=== PATIENT | male | born 1940 | race Caucasian/White ===

== ENCOUNTER → 2018-04-08 18:23 | Outpatient (CLI) | payer MEDICARE, SELFPAY ==
--- OUTSIDE RECORDS SUMMARY | 2018-05-25 14:53 | XMS RPT_ITS | Continuity of Care Document ---
:1940 Author Organization [facility] Address [facility] [facility] [address] [place] [address] Phone Care Team Providers Name Role Phone Tiajose OSKAR Daiana Mcclain Unavailable Howard Rogers Unavailable Jonh Faria MD Unavailable Gregg Adams Unavailable Unavailable Dr. Av Cantu Unavailable Dr. Ruddy Regan Unavailable Mehreen Solitario Unavailable Pancho Gonzalez Unavailable Staci Wise LPN Unavailable Unavailable Unavailable Unavailable Problems Name Dates Details Asthma without status asthmaticus or acute exacerbation (J45.909, 493.90) Comments: stablefrom 2-18, not using any binhalors now.Has cough, no SOB or wheeze. Status: Active Atherosclerosis of coronary artery (I25.10, 414.00) Comments: see susanne lopez, 11/05/15, every 6 month,. stopped metoprolo because of dizziness and its improved stable on altace1-12 stent x 3CABG 2003No Cp or SOB Status: Active Back pain (M54.9, 724.5) Comments: history of disc problem, loss of height of L1, osteoarthritis, calcification of abd aortastill sleeping in recliner, follow up with Dr. Gonzalez ([facility]) Status: Active BMI 27.0-27.9,adult (Z68.27, V85.23) Status: Active Calcification of aorta (Renamed from Aortic calcification) (I70.0, 440.0) Comments: no aneurysm, lipids stableper lumbar xray Status: Active Chronic prostatitis (N41.1, 601.1) Comments: saw crowely and started flomax yesterday and everything good there Status: Active CKD stage G3a/A1, GFR 45 - 59 and albumin creatinine ratio <30 mg/g (N18.3, 585.3) Comments: GFR 49% does not drink enough Status: Active Controlled diabetes mellitus with ophthalmic complication, without long-term current use of insulin (E11.39, 250.50) Comments: on actos, good hga1c : 6.0 was 6.2 (08/28/15) HBA1c 5.9( 03/12), HbA1c 5.8 (10-10-) EKG:NSR, no acute ST T wave changes.BP :Blood sugars at home:Given blood sugar logVision problems.Opthalmol ogy exam:Lef t eye macular degeneration, eye appt 06/12, getting shot, On actos Refils on medicine done.DIABETIC FOOT CARE:Check feet daily for sores, cuts, callusses, infection.Check inside of the shoes daily for lo ose objects or rough edges.Do not go barefoot inside or outside.Foot exam today WNL, no corn,callusses, ulcers, fissures, tenia pedis or foot deformity.Monofilament exam WNL.Pulses WNLDIET AND EXERCISE: Follow up in 3 monthseye exam regularlyDoes not check blood sugar at home Status: Active Current nonsmoker (Renamed from Current non-smoker) (Z78.9, V49.89) Status: Active Debility (R53.81, 799.3) Comments: wants another cane with feet Status: Active Depressive disorder (F32.9, 311) Comments: lexapro make huge difference happy again. Status: Active Diabetic retinopathy, nonproliferative (E11.3299, 250.50) Status: Active Dizziness (R42, 780.4) Comments: think multi factorial. think from old lacunar, think vision think BP ? inner ear. willcut back on meds and let BP trend up some. had PT if continue bruce with vertigo willsend to ENT for ENGimproved with stopping metoprolol by Dr Ellis 11/05/15 Status: Active Gait disturbance (R26.9, 781.2) Comments: old lacunar infarct on CT with parkinson like changes in gait etc, seen Angie been to PT. he is now on oxybutynin and help ? worsen this tried sinemet not thin helps. 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 sx done and some chronic mild pain in left side but better since surgery us done and good. colonscopy 5-15 recheck 2 year Status: Active History of colon polyps (Z86.010, V12.72) Comments: 6-07 sessile polyp. recheck 4-14Colonoscopy 08/10 Dr Faria, repeat 10 years Status: Active History of tobacco abuse (Z87.891, V15.82) Status: Active Hypercholesterolemia (E78.00, 272.0) Comments: tried crestor and lipitor nauseated. pt aware.On Zetia Status: Active Hypertension (I10, 401.9) Comments: controlled on altace Status: Active Lacunar infarction (I63.81, 434.91) Comments: Dr escudero in 04/1710: ED with slured speech, right sided facial droopiness.Weakness in rt arm.PT: and speech therapy twice a weekMRI: acute focal deep white matter infarct measuring 0.6 cm in tyhe posterior centrum semiovael on the left Status: Active Low back pain (M54.5, 724.2) Status: Active Macular degeneration (H35.30, 362.50) Comments: worsening vision sees Dr. Torres Status: Active Memory loss (R41.3, 780.93) Comments: 4-[address] Solitario show depression. lexapro help attitude but not memory. notice difference with patch. more energy and more back to self. really help and make better. think vascul ar dementia. notice exelon help have to change patch over to oral.Had CT 2013 mild atrophy, microvascular old lacunar infarct,Has selective memory Status: Active Nonsmoker (Z78.9, V49.89) Status: Active Other intervertebral disc degeneration, lumbar region (M51.36, 722.52) Comments: use mobic does help. some pain in left lower back. Status: Active Restless leg (G25.81, 333.94) Comments: recommended sleep study, but pt refused Status: Active Skin cancer (C44.90, 173.90) Status: Active TIA (transient ischemic attack) (G45.9, 435.9) Comments: was to take incrase dose of ASA will check dose and suggested lipitor. will check Lipid level Status: Active Urinary urgency (R39.15, 788.63) Comments: Kathie 02/09: incresed oxybutinin from Qd to BID Status: Active Vitamin D deficiency (E55.9, 268.9) Comments: low Status: Active Medications Name Dates Details Altace 5 MG Oral Capsule 1 Capsule QD for 90 days Quantity: 90 {Capsule} Refills: 3 Ordered:23-May-2016 Daiana Andrew CNP, CNP, Mary E Start : 23-May-2016 Active Donepezil HCl 10 MG Oral Tablet 1 (one) Tablet qhs for 0 days Quantity: 90 {Tablet} Refills: 3 Ordered:07-Oct-2017 Daiana Andrew CNP, CNP, Mary E Start : 07-Oct-2017 Active Comments:dc exelon patch ECOTRIN LOW STRENGTH, 81MG (Oral Tablet Delayed Release) 1 QD for 0 days Refills: 0 Ordered:19-Oct-2008 Che Gong Escitalopram Oxalate 10 MG Oral Tablet 1 (one) Tablet qd for 0 days Quantity: 90 {Tablet} Refills: 3 Ordered:10-Sep-2017 Daiana Andrew CNP, CNP, Mary E Start : 10-Sep-2017 Active Gas Relief Extra Strength 125 MG Oral Tablet Chewable 1 (one) Tablet Tablet bid prn for 0 days Quantity: 30 {Tablet} Refills: 0 Ordered:22-Jul-2017 Staci Wise LPN Start : 24-Apr-2017 Active Omeprazole 40 MG Oral Capsule Delayed Release [address] QOD for 90 days Quantity: 180 {Capsule} Refills: 2 Ordered:07-Nov-2016 Tiaasimjose c SCHMITT, Daiana Connorsjose c SCHMITT, Daiana Mcclain Start : 07-Nov-2016 Active Oxybutynin Chloride ER 10 MG Oral Tablet Extended Release 24 Hour 1 (one) Tablet ER 24HR two times daily for 30 days Quantity: 30 {Tablet} Refills: 5 Ordered:12-Mar-2016 Ilir Jacob MD Start : 12-Mar-2016 Active Comments:gait disturbance Plavix 75 MG Oral Tablet 1 (one) Tablet daily for 30 days Quantity: 30 {Tablet} Refills: 0 Ordered:19-Feb-2018 Lorrie SCHMITT, Daiana Connorsjose c SCHMITT Daiana Mcclain Start : 19-Feb-2018 Active Zetia 10 MG Oral Tablet 1 QD for 0 days Refills: 0 Ordered:06-Dec-2015 Ilir Jacob MD Start : 06-Dec-2015 Active Actos 30 MG Oral Tablet 1 (one) Tablet QD for 30 days Quantity: 30 {Tablet} Refills: 0 Ordered:19-Jun-2017 Judithjose c SCHMITT, Daiana Doyle CONTENT DIRECTOR, Daiana Mcclain Start : 19-Jun-2017 End : 19-Jul-2017 Inactive ADVAIR DISKUS, 100-50MCG/DOSE (Inhalation Aerosol Powder Breath Activated) 1 Puff(s) bid for 0 days Quantity: 1 {Misc} Refills: 5 Ordered:09-Jun-2013 VICENTA Gong Start : 09-Apr-2011 End : 09-Jun-2013 Inactive ALIGN, 4MG (Oral Capsule) 1 Capsule daily for 0 days Quantity: 30 {Capsule} Refills: 0 Ordered:09-Jun-2013 VICENTA Gong Start : 09-Apr-2011 End : 09-Jun-2013 Inactive AMITIZA, 8MCG (Oral Capsule) 1 qd for 0 days Refills: 0 Ordered:29-Aug-2013 VICENTA Gong End : 29-Aug-2013 Inactive ATORVASTATIN CALCIUM, 10MG (Oral Tablet) 1 (one) Tablet daily for 0 days Quantity: 30 {Tablet} Refills: 6 Ordered:29-Aug-2013 VICENTA Gong Start : 09-Jun-2013 End : 29-Aug-2013 Inactive BIAXIN XL PAC, 500MG (Oral Tablet Extended Release 24 Hour) 2 (two) Tablet ER 24HR Daily for 10 days Quantity: 20 {Tablet_ER_24HR} Refills: 0 Ordered:29-Jul-2006 Zeny Sales LPN Start : 29-Jul-2006 End : 17-Aug-2006 Inactive BIAXIN XL PAC, 500MG (Oral Tablet Extended Release 24 Hour) 2 (two) Tablet ER 24HR daily for 14 days Quantity: 28 {Tablet_ER_24HR} Refills: 0 Ordered:09-Apr-2011 Juditha CONTENT DIRECTOR, Daiana Connorsjose c SCHMITT, Katalina Start : 09-Apr-2011 Inactive BIAXIN, 500MG (Oral Tablet) 1 Tablet bid for 14 days Quantity: 28 {Tablet} Refills: 0 Ordered:09-Apr-2011 Juditha CONTENT DIRECTOR, Daiana Connorsjose c CONTENT DIRECTOR, Katalina Start : 09-Apr-2011 End : 23-Apr-2011 Inactive CHERATUSSIN AC, 100-10MG/5ML (Oral Syrup) 1 Teaspoon(s) qhs prn for 0 days Quantity: 6 {Ounce(s)} Refills: 0 Ordered:18-Oct-2012 Zeny Sales LPN Start : 09-Apr-2011 End : 18-Oct-2012 Inactive Comments:six ounces CIPRO, 500MG (Oral Tablet) 1 Tablet bid for 21 days Quantity: 42 {Tablet} Refills: 0 Ordered:04-Sep-2011 Toma Hale Start : 01-Sep-2011 End : 04-Sep-2011 Inactive CIPROFLOXACIN HCL, 500MG (Oral Tablet) 1 Tablet bid for 0 days Quantity: 28 {Tablet} Refills: 0 Ordered:31-Jul-2010 Zeny Sales LPN Start : 17-Jun-2010 End : 31-Jul-2010 Inactive CYCLOBENZAPRINE HCL, 10MG (Oral Tablet) 1 Tablet Tablet tid for 0 days Quantity: 30 {Tablet} Refills: 1 Ordered:09-Dec-2013 Eva King Start : 05-May-2013 End : 09-Dec-2013 Inactive Comments:thirty Ergocalciferol 33362 UNIT Oral Capsule 1 Capsule twice weekly for 90 days Quantity: 24 {Tablet} Refills: 0 Ordered:12-Mar-2016 Ilir Jacob MD Start : 12-Mar-2016 End : 10-Jun-2016 Inactive EXELON, 13.3MG/24HR (Transdermal Patch 24 Hour) 1 (one) Patch 24HR apply daily for 0 days Quantity: 1 {Package} Refills: 0 Ordered:17-Aug-2015 Lavinia Forrest LPN Start : 16-Aug-2015 End : 17-Aug-2015 Inactive EXELON, 13.3MG/24HR (Transdermal Patch 24 Hour) 1 (one) Patch 24HR apply daily for 0 days Quantity: 90 {Patch} Refills: 3 Ordered:17-Aug-2015 Lavinia Forrest LPN Start : 16-Aug-2015 End : 17-Aug-2015 Inactive EXELON, 4.6MG/24HR (Transdermal Patch 24 Hour) 1 (one) Patch 24HR apply daily 2 weeks for 0 days Quantity: 14 {Patch} Refills: 0 Ordered:10-Feb-2014 VICENTA Gong Start : 09-Dec-2013 End : 10-Feb-2014 Inactive FLOMAX, 0.4MG (Oral Capsule) 1 (one) Capsule at night for 0 days Quantity: 30 {Capsule} Refills: 0 Ordered:08-Dec-2014 VICENTA Gong Start : 25-Aug-2014 End : 08-Dec-2014 Inactive HYOSCYAMINE SULFATE, 0.125MG (Oral Tablet) 1 bid for 0 days Refills: 0 Ordered:24-May-2009 VICENTA GongInactive HYOSCYAMINE, 0.15MG (Oral Tablet) 1 (one) Tablet BID for 0 days Quantity: 60 {Tablet} Refills: 6 Ordered:08-Jan-2009 Tata Gould LPN Start : 08-Jan-2009 End : 12-Jan-2009 Inactive KEFLEX, 500MG (Oral Capsule) 1 Capsule bid for 0 days Quantity: 28 {Capsule} Refills: 0 Ordered:13-Jun-2010 VICENTA Gong Start : 11-Mar-2010 End : 13-Jun-2010 Inactive LEVBID, 0.375MG (Oral Tablet Extended Release 12 Hour) Tablet ER 12HR BID for 0 days Quantity: 90 {Tablet_ER_12HR} Refills: 3 Ordered:06-Jan-2008 Jasmin Liz Start : 23-Apr-2006 End : 06-Jan-2008 Inactive Levsin/SL 0.125 MG Sublingual Tablet Sublingual 1 (one) Tab Sublingual two times daily, as needed for 30 days Quantity: 60 {Tablet} Refills: 0 Ordered:10-Oct-2016 Lorrie CONTENT DIRECTOR, Daiana Doyle CONTENT DIRECTOR, Daiana Mcclain Start : 10-Oct-2016 End : 09-Nov-2016 Inactive Comments:Medication taken as needed. LIDODERM, 5% (External Patch) 2 (two) Patch on 12 hrs off 12 hrs on each side for 0 days Quantity: 14 {Patch} Refills: 1 Ordered:09-Jun-2013 VICENTA Gong Start : 05-May-2013 End : 09-Jun-2013 Inactive MELOXICAM, 15MG (Oral Tablet) 1 Tablet daily prn for pain for 0 days Quantity: 30 {Tablet} Refills: 0 Ordered:09-Jun-2013 VICENTA Gong Start : 18-Oct-2012 End : 09-Jun-2013 Inactive Comments:take with food MELOXICAM, 7.5MG (Oral Tablet) 1 Tablet daily for 0 days Quantity: 30 {Tablet} Refills: 0 Ordered:10-Feb-2014 VICENTA Gong Start : 17-Jan-2013 End : 10-Feb-2014 Inactive MIRAPEX, 0.125MG (Oral Tablet) 1 Tablet q pm for 0 days Quantity: 30 {Tablet} Refills: 0 Ordered:29-Aug-2013 VICENTA Gong Start : 04-Oct-2012 End : 29-Aug-2013 Inactive NULEV, 0.125MG (SL SL Tab) 1 tid/prn for 0 days Refills: 0 Ordered:06-Jan-2008 Jasmin Liz End : 06-Jan-2008 Inactive PLAVIX, 75MG (Oral Tablet) 1 qd (75 MG) Inactive PRAMIPEXOLE DIHYDROCHLORIDE, 0.125MG (Oral Tablet) 1 Tablet take 2-3 hrs before bedtime for 0 days Quantity: 30 {Tablet} Refills: 1 Ordered:09-Jun-2013 VICENTA Gong Start : 17-Jan-2013 End : 09-Jun-2013 Inactive PROVENTIL HFA, 108 (90 Base)MCG/ACT (Inhalation Aerosol Solution) 2 (two) Puff(s) QID/PRN for 0 days Quantity: 1 {Aerosol_Soln} Refills: 3 Ordered:09-Jun-2013 VICENTA Gong Start : 09-Apr-2011 End : 09-Jun-2013 Inactive Comments:PIERRE RHINOCORT AQUA, 32MCG/ACT (Nasal Suspension) Unsure Unsure for 0 days Refills: 0 Ordered:06-Jan-2008 Estrada Lizie End : 06-Jan-2008 Inactive SKELAXIN, 800MG (Oral Tablet) 1 Tablet BID/PRN for 0 days Quantity: 40 {Tablet} Refills: 0 Ordered:02-Dec-2007 VICENTA Gong Start : 02-Dec-2007 End : 22-May-2008 Inactive TIZANIDINE HCL, 4MG (Oral Capsule) 1 Capsule q6-8hr prn for back spasm for 0 days Quantity: 30 {Capsule} Refills: 0 Ordered:09-Jun-2013 VICENTA Gong Start : 18-Oct-2012 End : 09-Jun-2013 Inactive VESIcare 10 MG Oral Tablet 1 (one) Tablet daily for 30 days Quantity: 30 {Tablet} Refills: 0 Ordered:07-Feb-2016 Ilir Jacob MD Start : 06-Dec-2015 End : 05-Jan-2016 Inactive VICODIN, 5-500MG (Oral Tablet) 1 (one) Tablet QID/PRN for 0 days Quantity: 30 {Tablet} Refills: 0 Ordered:02-Dec-2007 VICENTA Gong Start : 02-Dec-2007 End : 06-Jul-2008 Inactive ZANAFLEX, 4MG (Oral Capsule) 1 Capsule daily if no improvement may take another in 6hrs for 0 days Quantity: 30 {Capsule} Refills: 0 Ordered:09-Jun-2013 VICENTA Gong Start : 04-Oct-2012 End : 09-Jun-2013 Inactive Comments:take with food ZOSTAVAX, 08949PDC/0.65ML (Subcutaneous Solution Reconstituted) 1 (one) For Solution once SC for 0 days Quantity: 1 {Cartridge} Refills: 0 Ordered:29-Aug-2013 VICENTA Gong Start : 09-Jun-2013 End : 29-Aug-2013 Inactive ACTOPLUS MET, 15-500MG (Oral Tablet) Tablet BID for 0 days Quantity: 60 {Tablet} Refills: 5 Ordered:21-May-2006 Zeny Sales LPN Start : 21-May-2006 End : 17-Aug-2006 Discontinued ALBUTEROL SULFATE HFA, 108MCG/ACT (Inhalation Aerosol Soln) QID/PRN for 0 days Refills: 0 Ordered:24-May-2009 VICENTA Gong Start : 29-Jul-2006 End : 24-May-2009 Discontinued Comments:This order discontinued per [facility]. AMITRIPTYLINE HCL, 25MG (Oral Tablet) Tablet 1/2 at night for 3d then 1 for 0 days Refills: 0 Ordered:22-May-2008 Kasey Aguiar MD Start : 06-Apr-2008 End : 22-May-2008 Discontinued CARBIDOPA-LEVODOPA ER, 25-100MG (Oral Tablet Extended Release) 1 (one) Tablet ER bid for 0 days Quantity: 60 {Tablet} Refills: 0 Ordered:18-May-2015 Kasey Aguiar MD Start : 18-May-2015 End : 18-May-2015 Discontinued Cerefolin NAC 6-90.314-2-600 MG Oral Tablet 1 (one) Tablet daily for 0 days Quantity: 30 {Tablet} Refills: 11 Ordered:21-Jan-2017 Rj Wise LPNa Start : 07-Nov-2016 End : 21-Jan-2017 Discontinued Cerefolin NAC 6-90.314-2-600 MG Oral Tablet 1 (one) Tablet daily for 0 days Quantity: 90 {Tablet} Refills: 3 Ordered:21-Jan-2017 Cheyannerb MACKENZIE, Staci Start : 07-Nov-2016 End : 21-Jan-2017 Discontinued FLEXERIL, 5MG (Oral Tablet) 1 Tablet tid prn for muscle spasm for 0 days Quantity: 30 {Tablet} Refills: 1 Ordered:04-Oct-2012 VICENTA Gong Start : 04-Oct-2012 End : 05-May-2013 Discontinued Comments:This order discontinued per [facility]. METFORMIN HCL, 500MG (Oral Tablet) Tablet BID for 0 days Quantity: 60 {Tablet} Refills: 5 Ordered:21-May-2006 eZny Sales LPN Start : 21-May-2006 End : 21-May-2006 Discontinued Comments:disregard this script Myrbetriq 50 MG Oral Tablet Extended Release 24 Hour 1 (one) Tablet ER 24HR in am for 0 days Quantity: 30 {Tablet} Refills: 0 Ordered:06-Dec-2015 Slarb [employer], Staci Start : 28-Aug-2015 End : 06-Dec-2015 Discontinued PYRIDIUM, 100MG (Oral Tablet) Tablet BID for 0 days Quantity: 20 {Tablet} Refills: 0 Ordered:16-Nov-2006 VICENTA Gong Start : 16-Nov-2006 End : 28-Jun-2007 Discontinued TESSALON PERLES, 100MG (Oral Capsule) 1 (one) Capsule TID/PRN for 0 days Quantity: 30 {Capsule} Refills: 0 Ordered:29-Jul-2006 VICENTA Gong Start : 29-Jul-2006 End : 28-Jun-2007 Discontinued Toprol XL 25 MG Oral Tablet Extended Release 24 Hour 1/2 (one half) Tablet ER 24HR QD for 90 days Quantity: 30 {Tablet} Refills: 0 Ordered:10-Oct-2016 Slarb [employer], Staci Start : 14-Apr-2014 End : 10-Oct-2016 Discontinued Allergies and Adverse Reactions Name Dates Details Iodinated Contrast (Allergy) Status: Active Penicillins (Allergy) Status: Active Past Medical History Name Dates Details Abdominal pain (R10.9, 789.00) Comments: left upper quad Status: Inactive as of 12-May-2014 Actinic keratosis (L57.0, 702.0) 24-May-2009 Status: Inactive as of 09-Jun-2013 Acute renal failure (N17.9, 584.9) 13-Jun-2010 Status: Inactive as of 09-Jun-2013 BMI 27.0-27.9,adult (Z68.27, V85.23) Status: Inactive as of 22-Jul-2017 BMI 28.0-28.9,adult (Z68.28, V85.24) Status: Inactive as of 24-Apr-2017 BMI 28.0-28.9,adult (Z68.28, V85.24) Status: Inactive as of 21-Jan-2017 BMI 28.0-28.9,adult (Z68.28, V85.24) Status: Inactive as of 27-Oct-2017 Bronchitis (J40, 490) Status: Inactive as of 09-Jun-2013 Bronchitis (J40, 490) 13-Jun-2010 Status: Inactive as of 09-Jun-2013 Calcium kidney stone (N20.0, 592.0) 11-Mar-2010 Status: Inactive as of 09-Jun-2013 Change in mental status (R41.82, 780.97) Comments: on excelon patch per DB now worsening mental stauts Status: Inactive as of 26-Jan-2015 Confusion (R41.0, 298.9) Comments: this week not been good. try to make oatmeal but could not figure out how to do Status: Inactive as of 26-Jan-2015 Controlled diabetes 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 (E11.9, 250.00) Status: Inactive as of 26-Jan-2015 Cough (R05, 786.2) Status: Inactive as of 09-Jun-2013 Cyst, kidney, acquired (N28.1, 593.2) Status: Inactive as of 09-Jun-2013 Duodenitis 13-Jun-2010 Status: Inactive as of 09-Jun-2013 Dysuria (R30.0, 788.1) Status: Inactive as of 09-Jun-2013 Elevated prostate specific antigen (PSA) (R97.20, 790.93) Status: Inactive as of 09-Jun-2013 Encounter for routine history and physical exam for male (Z00.00, V70.0) Comments: 03-11 reveiwed with patient allquestions myself with patient. keep cellphone on him when gone. at all times. some depression questions positive but think because memory and note not depressed shingles at pharmacy Status: Inactive as of 18-May-2015 Epigastric pain (R10.13, 789.06) Status: Inactive as of 09-Jun-2013 Fall (W19.XXXA, E888.9) Comments: worsening with fall after restless legsfell out of bed secondary to restless legs Status: Inactive as of 09-Jun-2013 Foot pain (M79.673, 729.5) Status: Inactive as of 09-Jun-2013 Hematuria (R31.9, 599.70) Comments: now resolvedhad small blood in er Status: Inactive as of 12-Mar-2016 Hip pain, bilateral (719.45) Comments: Saw Dr Gonzalez sent for xray Status: Inactive as of 09-Jun-2013 Hyperglycemia (R73.9, 790.6) Status: Inactive as of 09-Jun-2013 Hypokalemia (E87.6, 276.8) 13-Jun-2010 Status: Inactive as of 09-Jun-2013 Irritable bowel syndrome (K58.9, 564.1) Status: Inactive as of 21-Jan-2017 Laceration of left hand (S61.412A, 882.0) Comments: pinky finger, sutured at urgent care Status: Inactive as of 21-Jan-2017 Low back pain (M54.5, 724.2) Status: Inactive as of 09-Jun-2013 LUQ abdominal tenderness (R10.812, 789.62) Comments: LUQ abdominla pain X2 years worse for 2 months.No Contipation or diarehea.Starts in the mdidle odf the night, moving around helps, no vomiting.No Pain after eatingHad colon suregry 2 yrs ago, colon obs truction Dr Faria.Has umbilical hernia.Last saw Dr Simpson Status: Inactive as of 21-Jan-2017 Pain of lower leg, unspecified laterality (M79.669, 729.5) Comments: thigh and kay bone ? arthritis. ?fromback. not with walking so not seem like joint. not sound radicular. check xray use tyelnol as need. if worsen then NCS. mobic helps. better if up and walk a lso. not watn to use mobic unless have too. Status: Inactive as of 10-Feb-2014 Parkinsonism (G20, 332.0) Comments: ? because of stroke lacunar. seen Dr. adams and agree. better with PT. Status: Inactive as of 10-Feb-2014 Pneumonia, organism unspecified (J18.9, 486) Status: Inactive as of 09-Jun-2013 Pre-operative examination (Z01.818, V72.84) Status: Inactive as of 09-Jun-2013 Skin lesion of face (L98.9, 709.9) Status: Inactive as of 21-Jan-2017 SOB (shortness of breath) on exertion (R06.02, 786.05) 13-Jun-2010 Comments: last few months with exertion. to cardio ? need cath not want to stress with cardio clear. some exertional signs and symptoms not progressing, stable so not need into hospital. check ash Status: Inactive as of 09-Jun-2013 thumb pain 13-Jun-2010 Status: Inactive as of 09-Jun-2013 Uncontrolled type II diabetes mellitus (E11.65, 250.02) 13-Jun-2010 Status: Inactive as of 09-Jun-2013 Unexplained weight loss (R63.4, 783.21) Status: Inactive as of 21-Jan-2017 Unspecified Diagnosis Status: Inactive as of 23-Aug-2015 Unspecified Diagnosis Status: Inactive as of 23-Aug-2015 Unspecified Diagnosis Status: Inactive as of 09-Jun-2013 Unspecified Diagnosis Status: Inactive as of 09-Jun-2013 Urinary frequency (R35.0, 788.41) 13-Jun-2010 Status: Inactive as of 09-Jun-2013 Urinary tract infection, site not specified (N39.0, 599.0) 11-Mar-2010 Status: Inactive as of 09-Jun-2013 Visit for suture removal (Z48.02, V58.32) Status: Inactive as of 21-Jan-2017 Wheezing (R06.2, 786.07) Status: Inactive as of 09-Jun-2013 WMV Comments: colonscopy 08-08 Status: Inactive as of 09-Jun-2013 Procedures Procedure Dates Details 3 stents placed Completed Comments: 2009 [place] Angioplasty Completed Comments: 1989,1995 bladder surgery Completed Apr-2006 CAB Completed 1999 Comments: triple bypass Colonoscopy Completed Comments: [facility] 08-13- rpt 10 years EKG Completed Comments: 2014 Hiatal Hernia Completed 1989 Inguinal Hernia Completed [address] faria (volvulus) Completed 09-07 Retinal Surgery Completed Comments: left eye to remove blood clot March 2013 TURP Completed Jun-2007 Comments: kathie Cystoscopy, TURP (10-17-14) Date Value Details 10-Oct-2016 L/S Spine Min 4 Views Result: Comments: See Note; NOTES: [facility] Services [address] [place] [address] Verdana 4d L/S Spine Min 4 Views MR#: [id number] Acct: [id number] Name: SHARITASERVANDO Rep #: [id number] : 1940 M 76 From: Toma Gary MD PCP: Daiana Andrew Status: REG CLI Study: L/S Spine Min 4 Views Date of Exam: 10/10/16 Exam# [id number] Ordering Dr: aDiana Andrew STUDY: X-RAY - LUMBAR SPINE REASON FOR EXAM: Male, 76 years old. Low back pain TECHNIQUE: Five view(s) of the lumbar spine were obtained. COMPARISON: October 08, 2012 FINDINGS: No rmal lumbar lordosis. There is trace dextroscoliosis. There is a normal alignment of the vertebrae. There is mild decreased height of L1 which is stable. There is marked disc space narrowing at L5-S1. There is atherosclerotic calcification of the abdominal aorta without a demonstrated aneurysm. There are small round calcifications projected over the right renal shadow. There are numerous phleboliths in the lower pelvis. RAD/L/S Spine Min 4 Views IMPRESSION: There are marked degenerative disc changes at L5-S1. There is stable mild compressio n of L1. There is trace dextroscoliosis. There are renal calculi on the right side. Electronically Signed: Toma Gary MD at 16:08 EDT Tel [phone], Service support , F [phone] CC: Daiana Andrew [employer] Operator Helper: Signed 22-Aug-2016 PT D/C Summary (1) Result: Comments: See Note; NOTES: [facility] Physical Therapy [facility] [address] [place] [address] Fax [facility] MR#: [id number] Acct: [id number] Name: SERVANDO TORRE Rep #: [id number] : 1940 76 From: Quang Spain DPT, OCS, CSCS Referring DrMohan: Lenore Elder LEAD APPLICATIONS DEVELOPER Status: REG RCR Insurance: MMO MEDICARE HP - PT D/C Summary It has been my pleasure to treat SERVANDO TORRE under orders from JOHN Bruce, for the diagnosis of CVA for a total of 7 visit(s). Discharge Date: 06/18/16 Pl ease see the following information for a summary of their discharge status. - Subjective Subjective: No balance difficiulties, no falls lately. Activites at home are normal in one breath and then avoi ding going outside in the next sentence. No pain. All transfers and basic ADLs are good. Dresses without Wants to drive but otherwise happy with current activitiest difficulty. Hasn't driven since 1996. I'm good enough to be done. No gumption to exercise at home, will stay active at [facility] and with buddies. Not sure when follows up with doctor. - Objective Objective/Function: +6 on FGA. Walking well today but poor motivation to stay active. - Goals Goal 1:: FGA to diminish fall risk Goal 2:: I HEP/Silver Sneakers to improve overall health Goal 3:: Pt feel back to 100% as prior to recent str jim with mobility and balance. Goal Progress: Goal Met - Plan Plan: D/C - D/C Information Discharge Comments: D/c. Pto continue seated VOR at home and stay active. Hard for him to find the motivation to ex at home and cognitively unable to continue via Silver Sneakers. may want to eventually join with him to wrokout and may discuss this with doctor. Balance is scoring normal for his age and 6 p oints improved. If there are questions or concerns regarding this patient's physical therapy, please feel free to call me at [phone]. Thank you for the referral of this patient. Sincerely, Quang rose, DPT, OC <Electronically signed by Quang Spain DPT, OCS, CSCS> 08/22/16 0934 CC: Daiana Andrew; Lenore Elder NP EBG Signed 21-Aug-2016 D/C Summary- SP Result: Comments: See Note; NOTES: [facility] Speech Pathology [facility] [address] [place], [place] [address] Fax REHABILITATION SERVICES DISCHAR GE SUMMARY MR#: [id number] Acct: [id number] Name: SERVANDO TORRE Rep #: [id number] : 1940 76 From: Reggie Joyner M.A., [facility]-ASSOCIATE TEAM PHYSICIAN Referring : Lenore Elder LEAD APPLICATIONS DEVELOPER Status: REG RCR Insurance: M [place] MEDICARE ST Discharge Summary - Discharged: Discharge: Servando Torre is discharged from [facility] speech therapy as of August 21, 2016. He has met or declined to address further go als. Goals and progress are as follows: 1. Patient will use recall strategies including but not limited to calendar use and written notes. His keeps a calendar that the patient looks at daily. 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 All other strategies are visualand due to his macular degeneration, he is marah ble to use them. 2. Patient will complete planning, judgment and reasoning tasks. Initially the patient had incomplete answers and moderate cues to give answers. At time of discharge he is able to compl ete verbal reasoning with 80% accuracy. 3. Patient will complete memory tasks including but not limited to recall family members names, personal information, puzzle completion. Initially, Servando had diffi culty in recalling names, mainly his grand kids. He also was unable to give his personal details such as his address. At the time of discharge he was able to list all family members names, complete addr ess and birthday. 4. Patient will complete magaña handling tasks. This goal was addressed multiple times and patient made minimal progress. During therapy he declined to continue this goal as he stated he does not do the bills nor does he pay when he and his are out in public. Was given the Cognitive Linguistic Quick Test ( CLQT) 3 times which is a criterion referenced assessment designed for adult s between the ages of 18 and 89 with known or suspected neurological dysfunctions. The CLQT is to assess strength and weaknesses in five cognitive domains. Severity ratings are within normal limits, mil d, moderate, severe deficits. The subtests are as follows: Initial, Re-evaluation,Discharge respective. Attention: Severe Moderate Mild. Memory:Moderate Moderate Mild. Executive functions: Severe Severe Borderline Mild/Moderate. Language:Moderate Mild WNL. Visuospatial Skills: Severe Severe Mild. Composite Severity: Severe Moderate Mild. The patient declined to have a home program provided to him. He declined to continue therapy as he stated he is okay at home. A copy of this discharge summary will be sent to his referring physician. Other ASSOCIATE TEAM PHYSICIAN G code- Current status CL Goal status CK, D/C status CJ. <Electronically signed by Reggie Joyner M.A., CCC-ASSOCIATE TEAM PHYSICIAN> 08/21/16 1538 CC: Daiana Andrew; Lenore Elder NP JLB Signed 10-Jul-2016 Adult Re-Evaluation - SP Result: Comments: See Note; NOTES: [facility] Speech Pathology [facility] [address] [place], [place] [address] Fax REEVALUATION / MEDICARE RECERTI FICATION [facility] SPEECH THERAPY MR#: [id number] Acct: [id number] Name: SERVANDO TORRE Rep #: [id number] : 1940 76 From: Reggie Joyner M.A., CCC-ASSOCIATE TEAM PHYSICIAN Referring Dr.: Lenore Elder NP Insura nce: MMO MEDICARE Previous/Current Goals - Goals 1-5 Previous Goal #1: Patient will use recall strategies including but not limited to calendar use and written notes. Goal 1 Status: Patient used t he strategy of repeition. He is able to read single words but was not able to write a list to use that as a strategy. He does not use a calendar although his has one present at home per the patient . Previous Goal #2: Patient will complete short term recall tasks including but not limited to recall of items he wishes to order as well as recall of words to find in word searches. Goal 2 Status: The patient was able to recall 13/18 details on testing for immediate recall. During therapy he was able to recall his food order after 5 minutes. He was also able to recall 2/3 words after a delay. Testing did not show a increase in memory due to one subtest ( a visual subtest) decreasing but he increased his story retelling score and his personal facts score. He was able to recall when his next appointm ents were after each therapy session. He reports that he has deficits in recalling names and it was observed in therapy that he often forgot the amount of magaña he had when he moved to counting change. P revious Goal #3: Patient will complete magaña handling tasks. Goal 3 Status: Patient is able to count magaña intermittently but often is a dollar or two off. He stated that due to visual deficits he has a h vanesa time determining between bill amounts. This goal will continue. History - History Date of Eval: 05/22/16 Medical Diagnosis (from RX): Congitive Deficits. Date of Onset of Diagnosis: [facility] Yes Results: Hospital and Home health. Other Relevant Medical History/Diagnoses/Surgery: Prior CVA was approx. 3 years ago. 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 Objective Cog/Ling/Com - Te st Administered Ekfbxixix-Pfwfosztlm-Yzzfuhjxcbnyr Assessment Administered: Yes Euqaplkgf-Idzwcvhxti-Mjpcuesksgran Assessment: Cognitive Linguistic skills were evaluated using patient/family interview, skilled observation and informal evaluation through tasks completed by the patient. - Orientation Orientation: Person, Place, Birthdate, Medical Diagnosis - Conversational Tasks Comments: Patient answ ered questions appropriately during simple conversation. - Recall Percent recall of paragraph information (y/n questions): 100% for short paragraph. - Numerical Skills Counting Money: Patient continue s to struggle to count money. He is able to count magaña but then forgets the total as he attempts to count change. He reports that he has difficulty in telling apart the coins due to visual deficits. Det ermining Change: Patient has a high level of difficult with identifying if change is correct or counting change. Balancing Checkbook Bicknell: Patient's completes his checkbook and he is in agreeme nt with her continuing. - Verbal Sequencing Verbal Sequencing: WFL - Problem Solving Simple: WFL Complex: Moderate - Cognitive Linguistic Supervision/Saftey Awareness of deficits: Moderate Managing m edications: Severe Managing finances: Severe - Executive Function Comments Comments: Patient is able to verbally problem solve better than do paper tasks. When asked what tasks he would like to complet e at home he stated puzzles as he used to do word searches and crosswords. When given a task of word search in therapy, he declined to attempt to do one. CLQT - CLQT CLQT Administered: Yes CLQT: Cogni tive Linguistic Quick Test (CLQT) is a criterion - referenced assessment designed for adults between the ages of 18 and 89 with known or suspected neurological dysfuntions. The CLQT is to assess strengt h and weaknesses in five cognitive domains. Severity ratings are within normal limits, mild, moderate, severe deficits. The subtests are as follows: Date: 07/10/16 - Attention Attention: Moderate - Me aidee Memory: Moderate - Executive Functions Executive Functions: Severe - Language Language: Mild - Visuospatial Skills Visuospatial Skills: Severe - Composite Severity Rating Composite Severity Rat ing: Moderate - CLQT Comments Comments He improved in executive functions to a borderline of moderate severe (severe is 0-7 and he received a 7 raw score which was increased from previously 5). Sonja ent still has deficits with recall, executive functions and attention. He was able to verbally problem solve much better than visually (due to eyesight) CLQT Re-Eval - Testing Results CLQT Test Compar vicente: Previously scores were as follows: Attention: Severe, Memory: moderate, executive functions: severe, Visuospatial skills severe. Noted improvements in personal facts, symbol cancellation, confront ational naming, story retelling, design generation. The areas of need remain symbol trails, design memory and mazes. He reported having difficulty with visually seeing the tasks as he has macular degene ration. Plan - Plan Plan: Speech therapy is warranted for cognitive deficits that are significant. - Recommendations MBS: No Treatment Warranted: Yes - Frequency Frequency: 2x /Week Duration: 6 Week s - Prognosis Prognosis: Good - Goals that are Established: Determination:: Goals will be added/modified as deemed necessary and appropriate. Therapy will be discontinued when results of re-evaluation indicate therapy is no longer needed or lack of progress has been documented. - Goal #1-5 Goal #1: Patient will complete planning, judgement and reasoning tasks. Prompts: Mod Accuracy: 4/5 trials # Se ssions: 4 consecutive sessions. Goal #2: Patient will complete memory tasks including but not limited to recall family members names, personal information, puzzle completion. Prompts: Min Accuracy: 4/5 trials. Goal #3: Patient will complete magaña handling tasks. <Electronically signed by Reggie Joyner M.A., CCC-ASSOCIATE TEAM PHYSICIAN> 07/10/16 9844 CC: Daiana Andrew; Lenore Elder LEAD APPLICATIONS DEVELOPER AJITH Signed For Medicare only, by signing this I certify the plan of care. Physicians Signature Date 10-Jul-2016 OT D/C Summary Result: Comments: See Note; NOTES: [facility] Occupational Therapy [facility] [address] [place] [address]. [address] [place] [address] Fax REHABILITATION SERVICES DIS CHARGE SUMMARY MR#: [id number] Acct: [id number] Name: SERVANDO TORRE Rep #: [id number] : 1940 76 From: Madeleine Mosher Referring DrMohan: Lenore Elder NP Status: REG RCR Eval Date: Discharge D ate: HP - OT D/C Summary It has been my pleasure to treat SERVANDO TORRE under orders from JOHN Bruce, for the diagnosis of CVA for a total of 4 visit(s). Please see the following informa tion for a summary of their discharge status. - Objective Objective/Function: Right core sucker 55#. left 45#. right lat 10#. left 8#. right tri 10#. Right shoulder - Goals Patient Goals: Improve Fine Motor Skills, Use Hand/Wrist/Arm Normally Again, Be More Independent in ADLS Goal:: Pt will demo ability to write name legibly. Goal:: pt will demonstrate increase functional ability to utilize fork/knife/sp oon with 90% ability to increase ind with self feeding by gudelia/c. Pts will report pt is MOD Ind with dressing/and fixing his coffee - Plan Plan: pt D/C pt will start silver sneakers and cont with ex. - D/C Information Discharge Comments: pt demo good gains with UB strength and has met functional OT goals at this time and is D/C from OT. Pt is to cont with speech and physical therapy. If there are questions or concerns regarding this patient's occupational therapy, please fell free to call me at [phone]. Thank you for the referral of this patient. Sincerely, Madeleine Mosher <Elect ronically signed by Madeleine Mosher > 07/10/16 1229 CC: Daiana Andrew; Lenore Elder NP MK Signed 05-Jul-2016 Emergency Department Summary Result: Comments: See Note; NOTES: [facility] Medical Records Department [address] [place] [address] Emergency Department Summary MR#: [id number] Acct: [id number] Name: SERVANDO TORRE Rep #: [id number] : 1940 76 From: Clem Esparza DO PCP: Daiana Andrew Status: DEP ER DATE OF SERVICE: 07/05/2016 CHIEF COMPLAINT: Abdominal pain. HISTORY OF PRESENT ILLNESS: A 76-year-old ma le with prior history of a sigmoid volvulus with colon resection by Dr. Faria. Reports for the past 4 days, he has had no bowel movement. He notes an intermittent cramping abdominal pain, which he sta radha starts in the left upper quadrant, works as way down towards the rectum. He states he has been passing little gas. He has not really felt much like eating, but he has been eating and drinking. He is not on chronic narcotics. States he has been urinating normally. States he does feel the urge for a bowel movement. PHYSICAL EXAMINATION: VITAL SIGNS: Afebrile. Vital signs are stable. ABDOMEN: Feels minimally distended. Rectal exam shows soft stool, does not feel to be an impaction. EMERGENCY DEPARTMENT COURSE: One-view abdomen shows diffuse large amount of stool, no air fluid levels, given a soap suds enema. He did have some results. I believe that this does not require admission. We are going to try magnesium citrate and Colace at home. Return if worsening. Follow up with primary care. MARY Melgoza IMPRESSION: Constipation. Clem Esparza DO T: NADEEM JOB: [id number] 07/05/161914 <Electronically signed by Clem Esparza DO> Date Blake iel Vilma MORALES Cosigner Signature (If Indicated): Date CC: Daiana Andrew Date Dictated: 07/05/161652 Date Transcribed: 07/05/161652 Dry Press Operator Helper: Signed 05-Jul-2016 Discharge Instruction Result: Comments: See Note; NOTES: [facility] Medical Records Department [address] [place] [address] Discharge Instruction 07/05/161641 MR#: [id number] Acct: [id number] Name: SERVANDO TORRE Celio Rep #: [id number] : 1940 76 From: Clem Esparza DO PCP: Daiana Andrew Status: PRE ER ED Disposition - Plan for ED Patient: Disposition: Home or Assisted Living Chief Complaint: Abd Pain Instructions: ED Constipation Prescriptions: Docusate Sodium [Colace] 100 mg PO DAILY #20 capsule Magnesium Citrate [Citrate Of Magnesia] 300 ml PO BID #1800 ml Referrals: Daiana Andrew [Primary Care Prov ider] - 3-5 Days What to do if you have Problems For any increased pain, shortness of breath, bleeding, nausea or vomiting, chest pain, or any unexpected problems, contact your Primary Care Provider . Call [facility] ([phone]) or report to the closest Emergency Room. Call 911 if necessary. 07/05/161644 <Electronically signed by Clem Esparza DO> Date Clem Esparza DO Cosigner Signature (If Indicated): Date CC: Daiana Andrew 05-Jul-2016 Abdomen Single View Result: Comments: See Note; NOTES: [facility] Imaging Services [address] [place] [address] Verdana 4d Abdomen Single View MR#: [id number] Acct: [id number] Name: SERVANDO TORRE Rep #: [id number] : 1940 M 76 From: Geronimo Farmer MD PCP: Daiana Andrew Status: PRE ER Study: Abdomen Single View Date of Exam: 07/05/16 Exam# [id number] Ordering Dr: Clem Esparza DO STUDY: X-RAY - ABDOMEN/PELVIS REASON FOR EXAM: Male, 76 years old. Pain TECHNIQUE: KUB COMPARISON: None. FINDINGS: Normal visualized lung bases. There is a diffuse ileus which appears predominantly colonic in association with retained fecal material in the colon. No evidence for small bowel obstruction There is no demonstrated free abdominal air. No evidence for hepatosplen omegaly. There are multiple tiny calcifications in the upper abdomen which may be consistent with renal calculi.. Lumbar spine demonstrates spondylosis ORDER #: RAD/Abdomen Single View IMPRESSION: Nonspecific predominantly colonic ileus with diffuse fecal retention Bilateral nephrolithiasis. If concern for obstructive uropathy CT recommended Electronic ally Signed: Geronimo Farmer MD at 16:17 EST , Service support [phone], CC: Daiana Andrew; Clem Esparza DO Dry Press Operator Helper: Signed 18-Jun-2016 OT D/C Summary Result: Comments: See Note; NOTES: [facility] Occupational Therapy [facility] [address] [place], [place] [address] Fax REHABILITATION SERVICES DIS CHARGE SUMMARY MR#: [id number] Acct: [id number] Name: SERVANDO TORRE Rep #: [id number] : 1940 76 From: Madeleine Mosher Referring Dr.: Leonre Elder LEAD APPLICATIONS DEVELOPER Status: REG RCR Eval Date: Discharge D ate: HP - OT D/C Summary It has been my pleasure to treat SERVANDO TORRE under orders from JOHN Bruce, for the diagnosis of CVA for a total of 4 visit(s). Please see the following informa tion for a summary of their discharge status. - Objective Objective/Function: Right core sucker 55#. left 45#. right lat 10#. left 8#. right tri 10#. Right shoulder - Goals Patient Goals: Improve Fine Motor Skills, Use Hand/Wrist/Arm Normally Again, Be More Independent in ADLS Goal:: Pt will demo ability to write name legibly. Goal:: pt will demonstrate increase functional ability to utilize fork/knife/sp oon with 90% ability to increase ind with self feeding by d/c. Pts will report pt is MOD Ind with dressing/and fixing his coffee - Plan Plan: pt D/C pt will start silver sneakers and cont with ex. - D/C Information If there are questions or concerns regarding this patient's occupational therapy, please fell free to call me at [phone]. Thank you for the referral of this patient. Sincerely, Madeleine Mosher <Electronically signed by Madeleine Mosher > 06/18/16 1134 CC: Daiana Elder LEAD APPLICATIONS DEVELOPER MK Signed 24-May-2016 Sleep Study Report Result: Comments: See Note; NOTES: [facility] [address] [place] [address] Polysomnography MR#: [id number] Acct: [id number] Name: SERVANDO TORRE Rep #: [id number] : 1940 76 From: Tyler Escudero MD PCP: Daiana Andrew Status: REG CLI Ordering Dr.: Lenore Elder Date: 05/21/16 Sex: M C DATE OF SERVICE: 05/21/2016 SCORING RULES: Respiratory events were acquired and scored in accordance with the Recommended Standards and Specifications as outlined in the AASM Manual for the Scoring of Sleep and Associated Events ( most recent version). Please note that a reference to CMS AHI in this report is consistent with the current Hypopnea definition according to Medicare Criteria and an AASM AHI reference is consistent with the current Hypopnea definition according to the AASM criteria and is recognized by CMS as the RDI. PROCEDURE: The study was attended continuously by a arcade game technician. Monitored parameters included left and right EOG, frontal, yesenia tral, and occipital EEG, mental and submental EMG, left and right anterior tibialis EMG, signal ECG waveform, snore, continuous airflow with thermistor and nasal pressure transducer, chest and abdominal plethysmography efforts, oxygen saturation with heart rate, and body positioning with video monitoring. DATE OF STUDY: May 21, 2016. REFERRING PHYSICIAN: Lenore Elder. SLEEP HISTORY: This is a diagnostic polysomnogram performed on this 76-year-old male with a body mass index of 28.2 and an [place] Sleepiness Scale score of 17. There is a history of dementia, as well as previously diagnosed obstructive sleep apnea, noncompliant with CPAP. SLEEP SUMMARY: Lights out occurred at 10:07 p.m. and lights on at 5:03 a.m. for a total recording time of 416.2 minutes and sleep period time of 331 min utes. Total sleep time is 197.5 minutes with sleep efficiency reduced to 47.5%. Sleep latency is 85.2 minutes, there was 1 REM period with a REM latency of 72 minutes. Slow wave sleep was not detected d uring this study. RESPIRATORY DATA: The total AHI is 12.8 by AASM criteria and 3.3 by CMS criteria. The REM index was 10 and 2.7 respectively and the supine RDI was 0 by both criteria; however, the pat ient was non-supine throughout the entirety of the study consisting of 197.5 minutes of total sleep time. Leg movement index was mildly elevated at 34.9 events per hour, 0.6 per hour was associated wit h arousals. Oxygen saturation ranged from 87-97% with a mean of 93.3%. Desaturations less than 88% occurred for 1 minute of total sleep time. Pulse rate ranged from 53-68 beats per minute with a mean of 60.8 beats per minute. No arrhythmias were identified. IMPRESSION: 1. Mild obstructive sleep apnea. 2. Periodic leg movements of sleep. RECOMMENDATIONS: The sleep apnea is mild. This may be confoun ded by the elevated position that the patient requires to sleep; however, there appears to be no significant sleep apnea in this position. The patient does demonstrate a prolonged sleep latency, which c ould be circadian disruption, medication effect or mood disturbance. Further evaluation of these factors is recommended. Leg movement index is elevated as well. This is of unclear clinical significance unless it is associated with symptomatic daytime symptoms of restless legs syndrome in which case dopaminergic agents may be of benefit. Tyler Escudero MD T: NTS JOB: [id number] CC: Tyler zhang MD 47 05/24/16 1227 <Electronically signed by Tyler Escudero MD> Date Tyler Escudero MD Co-signatu re (if applicable) Date Signed 22-May-2016 Adult Evaluation - SP Result: Comments: See Note; NOTES: [facility] Speech Pathology [facility] [address] [place] [address] Rd. [address] [place], [place] [address] Fax REHABILITATION SERVICES INITIAL EVALUATION MR#: [id number] Acct: [id number] Name: SERVANDO TORRE Rep #: [id number] : 1940 76 From: Reggie Joyner M.A., CCC-ASSOCIATE TEAM PHYSICIAN Referring DrMohan: Lenore Elder LEAD APPLICATIONS DEVELOPER Status: REG RCR Insurance: MMO MEDICARE History - History Date of Eval: 05/22/16 Medical Diagnosis (from RX): cva Date of Onset of Diagnosis: 02-28-16 Previous speech therapy: Yes Results: Home Health 4 weeks Other Relevant M edical History/Diagnoses/Surgery: Prior CVA was approx. 3 years ago. 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 Objective Cog/Ling/Com - Test Administered Unqywrkqy-Spmclojaxi-Zbbbnogxvquhk Assessment Administere d: Yes Hsgvczxfx-Ezayqzekmi-Dsivlonnalacz Assessment: Cognitive Linguistic skills were evaluated using patient/family interview, skilled observation and informal evaluation through tasks completed by isaak mcclain patient. - Orientation Orientation: Person, Place, Birthdate, Medical Diagnosis - Conversational Tasks Comments: Patient answered questions appropriately during simple conversation. - Recall Percen t recall of paragraph information (y/n questions): 100% for short paragraph. - Numerical Skills Counting Money: Family reported pt is unable to count money. Telling Time: PT able to read Numerical Work Problems: Pt is no longer able to do calculations. - Executive Function Comments Comments: Pt's completes medications and pt is okay with that. CLQT - CLQT CLQT Administered: Yes CLQT: Cognitiv e Linguistic Quick Test (CLQT) is a criterion - referenced assessment designed for adults between the ages of 18 and 89 with known or suspected neurological dysfuntions. The CLQT is to assess strength a nd weaknesses in five cognitive domains. Severity ratings are within normal limits, mild, moderate, severe deficits. The subtests are as follows: Date: 05/22/16 - Attention Attention: Severe - Memory Memory: Moderate - Executive Functions Executive Functions: Severe - Language Language: Moderate - Visuospatial Skills Visuospatial Skills: Severe - Composite Severity Rating Composite Severity Rati ng: Severe - CLQT Comments Comments Patient had significant difficulty with all tasks. He appeared confused by tasks even after several models and was unable to complete several tasks in any way. Pa elisabeth's reports that pt's memory is worse than prior status. She stated that he forgets the daily events. Patient is not able to recall what he would like to order in a restaurant. Severe deficits are global for cognitive skills. Plan - Plan Plan: Speech therapy is warranted for severe cognitive deficits. - Recommendations Treatment Warranted: Yes - Frequency Frequency: 2x /Week Duration: 4 W eeks - Prognosis Prognosis: Fair - Goals that are Established: Determination:: Goals will be added/modified as deemed necessary and appropriate. Therapy will be discontinued when results of re-evaluat ion indicate therapy is no longer needed or lack of progress has been documented. - Goal #1-5 Goal #1: Patient will use recall strategies including but not limited to calendar use and written notes. Pr ompts: Mod Accuracy: 4/5 trials Goal #2: Patient will complete short term recall tasks including but not limited to recall of items he wishes to order as well as recall of words to find in word searches . Prompts: Mod Accuracy: 3/5 trials Goal #3: Patient will complete magaña handling. Prompts: Min Accuracy: 90% G Codes - Type of Therapy Type of Therapy: Speech- Language Pathology - Other ASSOCIATE TEAM PHYSICIAN Other ASSOCIATE TEAM PHYSICIAN Current: CL - 60-79% Other ASSOCIATE TEAM PHYSICIAN Goal: CK - 40-59% Education - Patient has Indicated that the Following Identified Educational Needs: Cognitively Impaired - Patient Instruction Patient Education: Diag nosis, Treatment Plan, Goals Person Taught: Patient, Family Teaching Method: Discussion Response to teaching: Verbalize understanding <Electronically signed by Reggie Joyner M.A., CCC-ASSOCIATE TEAM PHYSICIAN&amp ;#62; 05/22/16 0206 CC: Daiana Elder LEAD APPLICATIONS DEVELOPER AJITH Signed For Medicare only, by signing this I certify the plan of care. Physicians Signature Date 22-May-2016 Inital Evaluation (1) - PT Result: Comments: See Note; NOTES: [facility] Therapy [facility] [address] [place] [address] Fax REHABILITATION SERVICES INITIAL EVALUATION MR#: [id number] Acct: [id number] Name: SERVANDO TORRE Rep #: [id number] : 1940 76 From: Quang Spain DPT, OCS, CSCS Referring Dr.: Lenore Elder LEAD APPLICATIONS DEVELOPER Status: REG RCR Insurance: [facility] [place] [facility] Patient's Visit Information SERVANDO TORRE is a 76 year old M referred to Physical Therapy by JOHN Bruce with a diagnosis of CVA. Date of Evaluation: 05/15/16 Physical Therapist : Quang Spain DPT, OC - Visit Plan Frequency: 2x /Week Duration: 4-6 Weeks Plan: 2x/week for 4-6 weeks. Focus on FW weight shift, coordination in LE, foam stance, integrating these balance items into function. 30 min. Pt may decide he wants to learn full ii4b workout with pics and then will need to schedule 60 min visits. Pt only scheduled one visit today as he has Speech Eval at next session. - Subjective Subjective: Fell 2x in one day in early February by losing balance. Speech was a little slurred. Went to ER as he was acting strange. Scanned head and found stroke. I n hospital for 8 days. Recuperating at home with home health. Had PT until a month ago. Been waiting on script for outpatient PT. Went to neurologist and they have sent for PT. Having PT,SP,OT. Walking everyday to get mail which is about a block. No AD needed. None needed prior. Having a hard time getting up and down from chair and car. Balance still seems off as he has to reach out and touch things, has macular degeneration and depth perception is bad. Will have OT 1-2x/ week. Likely speech after eval next week. Fairly sedentary prior to stroke. Retired from [employer]. No hobbies. No regular e xercise outside of gardening. Sleeps good, no pain. No recent falls. Dress and basic ADLs are OK. Walked a lap at [facility] for fitness prior to stroke. No steps at home. - Objective Gait is I but slow on firm flat surface with short R step and left stance time slightly. Steps are reciprocal with one rail. No toe drag today. transfer out of chair and bed I. LE AROM WFL. HS and gastroc tight mildly B LE. Strength LE 4/5 without asymmetries. reflexes 0/3 B patella and achilles, no clonus. Sensation is slightly at deficit in L medial distal leg to gross light touch. Pt avoids FW weight shift walking, stat ically and on steps. Coordination to reciprocal tapping is difficulty for pt in LE, heel to kay test shows mild deficits. Shown how to ambulate with cane whcih he has at home and can do it with focus. - Balance Scores Functional Gait Assessment Score: 19 % Disability: 36.6700 CATSIB Score (Max score 120 seconds): 70 - Goals Goal 1:: FGA to diminish fall risk Goal Time Frame: 4-6 Weeks Goal 2: : I HEP/Silver Sneakers to improve overall health Goal Time Frame: 4-6 Weeks Goal 3:: Pt feel back to 100% as prior to recent stroke with mobility and balance. Goal Time Frame: 4-6 Weeks - Rehabilitati on Potential Physical Therapy Diagnosis: diminished balance and coordination / CVA Rehabilitation Potential: Fair - Anticipated Interventions Patient/Client Instruction: Educate patient on: Condition C omments: balance safety. For the Purpose of:: To improve muscle performance and motor function, To improve gait and locomotor functions Therapeutic Exercise to Include: Strength training, Balance traini ng, Gait and locomotor training For the Purpose of:: To improve ability to perform ADL's, To improve ability of physical actions for home/community/work/leisure Thank you for the opportunity to eval uate your patient. For Medicare and Medicare HMO plans, please review the plan of care and approve it. It will need to be FAXED BACK to us at [phone] for Medicare purposes. Please let me know if there are questions or concerns regarding this plan of care. Physician Signature: Date: <Electronically signed by Quang MANCIAT , OCS, CSCS> 05/21/16 2601 CC: Daiana Andrew; Lenore Elder LEAD APPLICATIONS DEVELOPER EBG Signed For Medicare only, by signing this I certify the plan of care. Physicians Signature Date 22-May-2016 OT General Evaluation Result: Comments: See Note; NOTES: [facility] Occupational Therapy [facility] [address] [place] [address] Fax REHABILITATION SERVICES INI TIAL EVALUATION MR#: [id number] Acct: [id number] Name: SERVANDO TORRE Rep #: [id number] : 1940 76 From: Madeleine Mosher Referring Dr.: Lenore Elder LEAD APPLICATIONS DEVELOPER Status: REG RCR Insurance: MMO MEDICA RE Eval Date: Patient's Visit Information SERVANDO TORRE is a 76 year old M, referred to Occupational Therapy by JOHN Bruce,, with a diagnosis of CVA. Date of Evaluation: 05/15/16 Occupat ional Therapist: Madeleine Mosher - Subjective Subjective: Pt seen for initial OT eval this date- states Servando had a CVA three years ago and another on Feb.27. states when Servando got up he was not able to speak clearly. Servando did have a fall the next day and his took him to the ER. states pt was in the hospital for a few days and then released home with home health services. Wif e states she noticed improvments. Pt states he is having difficulty with numbers, thinking and states he has difficulty getting his shirts on from time to time. - Objective Objective/Observation: states pt needs assistance/supervision with most daily tasks. - Strength Cross Tie Maker: Right 45# left 55# Lateral Pinch: Right 10# left 12# Tripod Pinch: Right 10# left 8# - Stroke Specific Quality of Li fe Total SS-QOL Score: 95 - Goals Goal:: Pt will demo ability to write name legibly. Goal:: pt will demonstrate increase functional ability to utilize fork/knife/spoon with 90% ability to increase ind with self feeding by d/c. Pts will report pt is MOD Ind with dressing/and fixing his coffee - Rehabilitation Rehabilitation Potential: Good - Anticipated Interventions Anticipated Interventions: Fine Motor Coord/Saul, Neuro Reeducation, ADL Training - Visit Plan Frequency: 1-2x /Week Duration: 4 Weeks TEXT: Thank you for the opportunity to evaluate your patient. For Medicare and Social [employer] plans, please review the plan of care and approve it. It will need to be FAXED BACK to us at [phone] for Medicare purposes. Please let me know if there are questions or concerns regarding t his plan of care. Physician Signature: Date: <Electronically signed by Madeleine Mosher > 05/16/16 1436 CC: Daiana Andrew; Lenore Elder LEAD APPLICATIONS DEVELOPER MK Signed For Medicare only, by signing this I certify the plan of care. Physicians Signature Date 21-May-2016 Inital Evaluation (1) - PT Result: Comments: See Note; NOTES: [facility] Physical Therapy [facility] [address] [place] [address]. [address] [place] [address] Fax REHABILITATION SERVICES INITIAL EVALUATION MR#: [id number] Acct: [id number] Name: SERVANDO TORRE Rep #: [id number] : 1940 76 From: Quang Spain DPT, OCS, CSCS Referring DrMohan: Lenore Elder LEAD APPLICATIONS DEVELOPER Status: REG RCR Insurance: MMO MEDICARE Patient's Visit Information SERVANDO TORRE is a 76 year old M referred to Physical Therapy by JOHN Bruce with a diagnosis of CVA. Date of Evaluation: 05/15/16 Physical Therapist : Quang Spain, DPT, OC - Visit Plan Frequency: 2x /Week Duration: 4-6 Weeks Plan: 2x/week for 4-6 weeks. Focus on FW weight shift, coordination in LE, foam stance, integrating these balance items into function. 30 min. Pt may decide he wants to learn full ii4b workout with pics and then will need to schedule 60 min visits. Pt only scheduled one visit today as he has Speech Eval at next session. - Subjective Subjective: Fell 2x in one day in early February by losing balance. Speech was a little slurred. Went to ER as he was acting strange. Scanned head and found stroke. I n hospital for 8 days. Recuperating at home with home health. Had PT until a month ago. Been waiting on script for outpatient PT. Went to neurologist and they have sent for PT. Having PT,SP,OT. Walking everyday to get mail which is about a block. No AD needed. None needed prior. Having a hard time getting up and down from chair and car. Balance still seems off as he has to reach out and touch things, has macular degeneration and depth perception is bad. Will have OT 1-2x/ week. Likely speech after eval next week. Fairly sedentary prior to stroke. Retired from [employer]. No hobbies. No regular e xercise outside of gardening. Sleeps good, no pain. No recent falls. Dress and basic ADLs are OK. Walked a lap at [employer] for fitness prior to stroke. No steps at home. - Objective Gait is I but slow on firm flat surface with short R step and left stance time slightly. Steps are reciprocal with one rail. No toe drag today. transfer out of chair and bed I. LE AROM WFL. HS and gastroc tight mildly B LE. Strength LE 4/5 without asymmetries. reflexes 0/3 B patella and achilles, no clonus. Sensation is slightly at deficit in L medial distal leg to gross light touch. Pt avoids FW weight shift walking, stat ically and on steps. Coordination to reciprocal tapping is difficulty for pt in LE, heel to kay test shows mild deficits. Shown how to ambulate with cane whcih he has at home and can do it with focus. - Balance Scores Functional Gait Assessment Score: 19 % Disability: 36.6700 CATSIB Score (Max score 120 seconds): 70 - Goals Goal 1:: FGA to diminish fall risk Goal Time Frame: 4-6 Weeks Goal 2: : I HEP/Silver Sneakers to improve overall health Goal Time Frame: 4-6 Weeks Goal 3:: Pt feel back to 100% as prior to recent stroke with mobility and balance. Goal Time Frame: 4-6 Weeks - Rehabilitati on Potential Physical Therapy Diagnosis: diminished balance and coordination / CVA Rehabilitation Potential: Fair - Anticipated Interventions Patient/Client Instruction: Educate patient on: Condition C omments: balance safety. For the Purpose of:: To improve muscle performance and motor function, To improve gait and locomotor functions Therapeutic Exercise to Include: Strength training, Balance traini ng, Gait and locomotor training For the Purpose of:: To improve ability to perform ADL's, To improve ability of physical actions for home/community/work/leisure Thank you for the opportunity to eval uate your patient. For Medicare and Medicare HMO plans, please review the plan of care and approve it. It will need to be FAXED BACK to us at [phone] for Medicare purposes. Please let me know if there are questions or concerns regarding this plan of care. Physician Signature: Date: <Electronically signed by Quang Spain DPT , OCS, CSCS> 05/21/16 0730 CC: Daiana Elder LEAD APPLICATIONS DEVELOPER EBG Signed For Medicare only, by signing this I certify the plan of care. Physicians Signature Date 16-May-2016 OT General Evaluation Result: Comments: See Note; NOTES: [facility] Occupational Therapy [address] [place] [address] Fax REHABILITATION SERVICES INI TIAL EVALUATION MR#: [id number] Acct: [id number] Name: SERVANDO TORRE Rep #: [id number] : 1940 76 From: Madeleine Mosher Referring Dr.: Lenore Elder LEAD APPLICATIONS DEVELOPER Status: REG RCR Insurance: MMO MEDICA RE Eval Date: Patient's Visit Information SERVANDO TORRE is a 76 year old M, referred to Occupational Therapy by JOHN Bruce,, with a diagnosis of CVA. Date of Evaluation: 05/15/16 Occupat ional Therapist: Madeleine Mosher - Subjective Subjective: Pt seen for initial OT eval this date- states Servando had a CVA three years ago and another on Feb.27. states when Servando got up he was not able to speak clearly. Servando did have a fall the next day and his took him to the ER. states pt was in the hospital for a few days and then released home with home health services. Wif e states she noticed improvments. Pt states he is having difficulty with numbers, thinking and states he has difficulty getting his shirts on from time to time. - Objective Objective/Observation: states pt needs assistance/supervision with most daily tasks. - Strength Cross Tie Maker: Right 45# left 55# Lateral Pinch: Right 10# left 12# Tripod Pinch: Right 10# left 8# - Stroke Specific Quality of Li fe Total SS-QOL Score: 95 - Goals Goal:: Pt will demo ability to write name legibly. Goal:: pt will demonstrate increase functional ability to utilize fork/knife/spoon with 90% ability to increase ind with self feeding by d/c. Pts will report pt is MOD Ind with dressing/and fixing his coffee - Rehabilitation Rehabilitation Potential: Good - Anticipated Interventions Anticipated Interventions: Fine Motor Coord/Saul, Neuro Reeducation, ADL Training - Visit Plan Frequency: 1-2x /Week Duration: 4 Weeks TEXT: Thank you for the opportunity to evaluate your patient. For Medicare and Social Moov[employer] HMO plans, please review the plan of care and approve it. It will need to be FAXED BACK to us at [phone] for Medicare purposes. Please let me know if there are questions or concerns regarding t his plan of care. Physician Signature: Date: <Electronically signed by Madeleine Mosher > 05/16/16 1436 CC: Daiana Andrew; Lenore Elder NP MK Signed For Medicare only, by signing this I certify the plan of care. Physicians Signature Date 27-Feb-2016 Emergency Department Summary Result: Comments: See Note; NOTES: [facility] Medical Records Department [address] [place] [address] Emergency Department Summary 02/27/16 1025 MR#: [id number] Acct: [id number] Name: SERVANDO TORRE Rep #: [id number] : 1940 76 From: Venancio Frausto MD PCP: Ilir Jacob Status: REG ER - ER Visit Summary Date of Service: 02/27/16 Chief Complaint: Slurred speech that started eith er February 24 or the a.m. of February 25. History of Present Illness: The patient is a 76 M who was brought to the ER by his because of slurred speech, facial droop, drooling that had onset accordi ng the some time the a.m. of February 25. He does not have history of prior stroke. He does complain of slight headache. He denies any double vision, blurred vision loss of vision. He denies any narda sea or vomiting. He denies any auditory symptoms. He denies any cardiac respiratory symptoms. He tries any GI , musculoskeletal, endocrine or hematologic symptoms. 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 Physical Examination: Patient's a pleasant elderly gentleman with slurred speech and slight drooling. Vital signs are 143/84 temp 97.1 heart rate 55 respiratory rate 20 with a pulse ox of 99%. HEENT exam is remarkable for facial droop on the left. He does have slurred speech. Trach is midline. No carotid bruits. Lungs clear auscultation. Heart is regular. Abdo men soft nontender. He appears slightly pale. NIH is 3. He was ordered a point for facial droop, slurred speech and altered sensation on the right. Test Results: She is unremarkable. EKG reveals a sinu s bradycardia otherwise normal. Retinae is 1.33 with a GFR 55. Troponin is normal. Chest x-ray reviewed reveals poor inspiratory volume and limited study. CT reveals evidence of atrophy, old infarct and small vessel disease. There is no hemorrhage noted. Formal read by radiologist is pending. Case was discussed with Dr. Chinchilla the hospitalist who will admit patient Emergency Department Course and Yas mims: Dr. Tyler Escudero who is on for neurology was notified of the patient. Once diagnostic results are back will contact hospitalist for admission Disposition: Admit to the hospital Impression: 1 . Ischemic stroke 2. Renal insufficiency ED Disposition - Plan for ED Patient: Chief Complaint: Neuro S/Sx What to do if you have Problems For any increased pain, shortness of breath, bleeding, n ausea or vomiting, chest pain, or any unexpected problems, contact your Primary Care Provider. Call [facility] ([phone]) or report to the closest Emergency Room. Call 911 if necessary. 06/12 1038 <Electronically signed by Venancio Frausto MD> Date Venancio Frausto MD Cosigner Signature (If Indicated): Date CC: Ilir Jacob; Tyler Escudero MD -Feb-2016 Brain/Head without Contrast Result: Comments: See Note; NOTES: [facility] Imaging Services [address] [place] [address] [address] Brain/Head without Contrast MR#: [id number] Acct: [id number] Name: SERVANDO TORRE Rep #: [id number] : 1940 M 76 From: Breezy Huynh DO PCP: Ilir Jacob Status: REG ER Study: Brain/Head without Contrast Date of Exam: 02/27/16 Exam# [id number] Ordering Dr: Venancio Frausto MD STUDY: CT BRAIN WITHOUT CONTRAST REASON FOR EXAM: Male, 76 years old. Slurred speech, right-sided weakness for 24 hours RADIATION DOSAGE (If Supplied By Facility): CTDIvol = ( 44.99 ) mGy, DLP = ( 76 2.36 ) mGycm TECHNIQUE: Transaxial CT imaging of the brain was performed without administration of intravenous contrast material. Sagittal and coronal reconstructed images are provided and reviewed. I ndividualized dose optimization techniques were used for this CT. COMPARISON: 09/20/13 FINDINGS: Normal soft tissue structures. Normal calvarium. There is moderate cerebral atrophy with widening of the extra-axial spaces and ventricular dilatation. There are areas of decreased attenuation within the white matter tracts of the supratentorial brain, consistent with microvascular disease changes. Remote bilateral basal ganglia infarcts are noted. Normal brainstem. Normal cerebellum. There is no intracranial hemorrhage. There are no findings of an acute ischemic in farction. Normal visualized paranasal sinuses. CT/Brain/Head without Contrast IMPRESSION: Chronic involutional changes. No acute intracranial a bnormality. An MRI can be performed for further evaluation, as clinically indicated. Electronically Signed: Breezy Huynh DO at 10:52 EDT Tel , Service support [phone], CC: Ilir Jacob; Venancio Frausto MD Dry Press Operator Helper: Signed 27-Feb-2016 Chest 1 View Result: Comments: See Note; NOTES: [facility] Imaging Services [address] [place] [address] [address] Chest 1 View MR#: [id number] Acct: [id number] Name: SERVANDO TORRE Rep #: [id number] : 1940 M 76 From: Breezy Huynh DO PCP: Ilir Jacob Status: REG ER Study: Chest 1 View Date of Exam: 02/27/16 Exam# [id number] Ordering Dr: Venancio Frausto MD STUDY: X-RAY CHEST REASON FO R EXAM: Male, 76 years old. Slurred speech, right-sided weakness TECHNIQUE: Single AP portable view of the chest. COMPARISON: 09/15/13 FINDINGS: Cardiac monitoring leads overlie the chest. The lungs are underinflated. There is continued blunting of the costophrenic margin on the left. Sternal cerclage wires and vascular clips are present from a prior sternotomy and coronary artery bypass graft procedure (CABG). Heart size is slightly enlarged. Normal mediastinum and demi. Normal visualized pulmonary arteries. There is atherosclerotic tortuosity of the aortic a rch and descending thoracic aorta. Normal visualized thoracic spine. Normal visualized ribs, clavicles, and shoulders. There is moderate gaseous distention of bowel in the visualized upper abdomen. __ RAD/Chest 1 View IMPRESSION: Low lung volumes. Similar blunting of the left costophrenic margin. Postoperative changes to the heart. Electronic ally Signed: Breezy Huynh DO at 11:00 EDT Tel , Service support [phone], CC: Ilir Jacob; Venancio Frausto MD Dry Press Operator Helper: Signed 06-Jan-2015 Carotid Duplex Ultrasound Result: Comments: See Note; NOTES: [facility] Cardiovascular Services [address] [place] [address] Carotid Duplex Ultrasound 01/03/15 1303 MR#: [id number] Acct: [id number] Na me: SERVANDO TORRE Rep #: [id number] : 1940 74 From: Andre Buitrago MD Attending Dr: Kasey Aguiar MD Status: REG CLI Ordering Dr: Kasey gAuiar MD Date: 01/03/15 Location: [facility] Sex: M C Admit leslye: Rt. Velocities/BP Lt. Velocities/BP Prox CCA 72.7/11.1 cm/sec. Prox CCA 90.3/14.1 cm/sec. Mid CCA 71.5/17 cm/sec. Mid CCA 73.3/18.2 cm/sec. Dist CCA 66.8/14.1 cm/sec. Dist CCA 79.7/19.3 cm/ sec. RT Bulb - 79.7/19.9. Prox ICA 61.6/15.8 cm/sec. Prox ICA 74.5/15.8 cm/sec. Mid ICA 71.5/17.6 cm/sec. Mid ICA 65.7/15.8 cm/sec. Dist ICA 49.4/13.8 cm/sec. Dist ICA 61.6/19.3 cm/sec. Lt. ICA/CCA = 1.0. Rt. ICA/CCA = 1.0. Prox ECA 90.9/7.6 cm/sec. Prox ECA 73.9/14.1 cm/sec. Lt. Vert. 53.9/22.3 cm/sec. Rt. Vert. 47.5/8.7 cm/sec. Right Extracranial There is homogeneous, smooth atheroscleroti c plaque noted in the right common carotid artery. There is heterogeneous, irregular atherosclerotic plaque noted in the right internal carotid artery. There is intimal thickening but no significant atherosclerotic plaque noted in the right external carotid artery. Antegrade flow is noted in the right vertebral artery. There is heterogeneous, irregular atherosclerotic plaque noted in the right bulb. Left Extracranial There is homogeneous, smooth atherosclerotic plaque noted in the left common carotid artery. There is heterogeneous, irregular atherosclerotic plaque noted in the left inter nal carotid artery. There is intimal thickening but no significant atherosclerotic plaque noted in the left external carotid artery. Antegrade flow is noted in the left vertebral artery. Procedure Carotid Duplex 04298. The exam was diagnostic. Exam performed in department. Interpretation Summary Mild (<50%) stenosis right extracranial internal carotid. Mild (<50%) stenosis le ft extracranial internal carotid. Flow within the vertebral arteries is antegrade bilaterally. Ordering Physician: Kasey Aguiar Performed By: DERIAN Epps 01/06/15 1710 Date Andre Buitrago MD CC: Kasey Aguiar MD Date Dictated: 01/03/15 1303 Date Transcribed: 01/06/15 1710 Dry Press Operator Helper: Signed 17-Oct-2014 Operative Report Result: Comments: See Note; NOTES: [facility] Medical Records Department [address] [place] [address] Operative Report MR#: [id number] Acct: [id number] Name: SERVANDO TORRE Rep #: [id number] : 1940 74 From: Stu Pantoja MD PCP: Kasey Aguiar MD Status: [facility] DATE OF SERVICE: DATE OF SERVICE: October 13, 2014 PREOPERATIVE DIAGNOSES: Urethral strictures and vesicle neck contracture. POSTOPERATIVE DIAGNOSES: Urethral strictures and vesicle neck contracture. PROCEDURES: Cystoscopy, DVIU, direct visual internal urethrotomy and transurethral incision of prostate. 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 DESCRIPTION OF PROCEDURE: The patient was taken to the operating room and was placed under gen eral anesthesia per endotracheal tube by Dr. Mckeon and Abby Stoner. He had scuds in place, was preloaded with antibiotics. At this point, he was placed in lithotomy position, prepped and draped in s terile technique. Cystoscopic exam showed a normal urethra with a 17-Maltese scope until we got to the strictures. I was able to slightly pass these without too much difficulty. Once inside the prostat ic fossa, showed a little bit of recurrent apical tissue, but was not significantly obstructing as well as a significant vesicle neck contracture. The bladder itself was unremarkable. A few erythemato us areas from a prior infection, no evidence of any CIS, bladder tumors, stones, etc. At this point, the instruments were removed and the urethra was injected with a KY jelly. I was able to place ure throtome in the distal urethra, at which time then using the half patrick knife the 2 significant strictures were incised at 12 o'clock and I was able to pass these with ease and the external sphincter w as intact. At this point, urethra was then filled with water-soluble lubricant. Resectoscopic sheath was inserted. Then, using a London knife, transurethral incision of the prostate was performed at 6, 3 and 9 o'clock as well as a little tissue on the roof, especially towards the mid fossa, but at this point, had a wide open prostatic fossa and all the instruments were removed. The patient had a wide open stream by Crede maneuver and then a 24-Maltese was placed with ease with a 10 mL balloon. The urine was fairly clear at this point. The patient was awakened and taken to recovery in stable c ondition. Stu Pantoja MD T: NTS JOB: [id number] 10/17/14 1315 <Electronically signed by Stu Pantoja MD> Date Stu palafox MD CC: Kasey Aguiar MD; Stu Pantoja MD Date Dictated: 10/13/14 1225 Date Transcribed: 10/13/141224 Dry Press Operator Helper: Signed 13-Oct-2014 Discharge Instruction Result: Comments: See Note; NOTES: [facility] Medical Records Department [address] [place] [address] Instructions for Home/Discharge Instructions 10/13/14 1228 MR#: [id number] ct: [id number] Name: SERVANDO TORRE Rep #: [id number] : 1940 74 From: Stu Pantoja MD PCP: Kasey Aguiar MD Status: REG SDC Discharge Diet: No Restrictions - ENCOURAGE FLUIDS Discharg e Activity: May Not Drive - UNTIL TOMORROW, May Shower, - - CATHETER ON THURSDAY AM Lifting Restrictions: NONE Additional Activity Instructions:: IF MUCH BLOOD, PUSH FLUIDS AGGRESSIVELY Call your docto r if you observe: Fever of 101 or Higher, Inability to urinate Catheter: Will to large bag Additional Dressing/Incision Instructions:: PLEASE REMOVE CATHETER INSTRUCTED EARLY THURSDAY AM. USE SCISS ORS TO CUT SHORT ARM OFF. START PLAVIX ON THURSDAY Allergies/Adverse Reactions: Allergies iodine Allergy (Verified 09/15/13 08:45) Hives Penicillins Adverse Reaction (Verified 10/05/14 10:12) Rash Medications to take at Discharge Aspirin E.C. [Ecotrin] 81 mg PO DAILY@0800 Clopidogrel Bisulfate [Plavix] 75 mg PO DAILY Escitalopram Oxalate [Lexapro] 10 mg PO DAILY Ezetimibe [Zetia] 10 mg PO DAILY Metoprolol(XL)Succ [Toprol Xl (Beta Jose)] 25 mg PO DAILY Omeprazole [Prilosec] 40 mg PO BID Pioglitazone [Actos] 30 mg PO DAILY Ramipril [Altace] 5 mg PO DAILY Acetaminophen [Tylenol Tab let] 650 mg PO Q8H PRN PRN #1 tablet Amlodipine [Norvasc] 5 mg PO DAILY #1 Ciprofloxacin [Cipro] 500 mg PO BID Rivastigmine 9.5mg Patch [Exelon 9.5MG/24HR PATCH] Please Follow Up With: Viviana Pantoja J - [phone] When: SEE ME IN ABOUT 2 WKS, CALL SOON FOR APPT 10/13/14 3092 <Electronically signed by Stu Pantoja MD> Date Stu Pantoja MD CC: Kasey Aguiar MD 10-Oct-2014 12 Lead Electrocardiogram Result: Comments: See Note; NOTES: [facility] Cardiovascular Services [address] [place] [address] EKG - [facility] 10/05/1439 MR#: [id number] Acct: [id number] Name: SERVANDO TORRE Rep #: [id number] : 1940 74 From: Stu Melvin MD Attending Dr: Stu Pantoja MD Status: PRE [facility] Ordering Dr: Christian Ruano MD Date: 10/05/14 Location: [facility] Sex: M C Admitted: Test [place] son : Blood Pressure : / mmHG Vent. Rate : 052 BPM Atrial Rate : 052 BPM P-R Int : 132 ms QRS Dur : 090 ms QT Int : 464 ms P-R-T Axes : 031 -01 032 degrees QTc Int : 431 ms Sinus bradyca rdia Possible Left atrial enlargement Borderline ECG Confirmed by KAILEE CAMPBELL, STU ([id number]), news editor SARKIS MARTIN ([id number]) on 10/10/2014 2:59:36 PM Referred By: SAHARA PANTOJA Confirmed By:STU MOLINA MD 10/10/14 1459 Date Stu Melvin MD CC: Kasey Aguiar MD; Stu Melvin MD Date Dictated: 10/05/14938 Date Transcribed: 10/05/14938 Dry Press Operator Helper: Signed 26-Apr-2014 Abdomen Complete Result: Comments: See Note; NOTES: [facility] Imaging Services [address] [place] [address] Ultrasound Report MR#: [id number] Acct: [id number] Name: SERVANDO TORRE Rep #: [id number] : 1940 M 74 From: Jamie Dominguez DO PCP: Kasey Aguiar MD Status: REG CLI Study: Abdomen Complete Date of Exam: 04/26/14 Exam# [id number] Ordering Dr: Daiana Andrew STUDY: ABDOMINAL ULTRA SOUND REASON FOR EXAM: Male, 74 years old. Left lower quadrant pain since [place] section 6 months ago. TECHNIQUE: Transabdominal ultrasound was performed with real-time and static mills scale imagi ng. TECHNICAL QUALITY: Examination limited by bowel gas. COMPARISON: CT of the abdomen and pelvis, September 15, 2013. FINDINGS: Liver: The limited visualization o f the liver due to bowel gas. The left lobe is not adequately visualized. The liver measures 16.1 cm. There is normal echogenicity of the liver. The bile ducts are within normal limits. There is hepa tic color flow. The direction of portal flow is hepatopetal. There is no demonstrated mass lesion. Gallbladder: Normal distended gallbladder. The gallbladder wall measures 3.0 mm. There is a negativ e sonographic Suarez's sign. There is no pericholecystic fluid. There is a solitary 8 mm calculus. Common Bile Duct (C.B.D.): The common bile duct measures 3.7 mm. There are no filling defects. Pa ncreas: There is nonvisualization of the pancreas. Spleen: There is limited visualization of the spleen due to bowel gas. The spleen measures 7.6 cm. Right Kidney: Normal size of the right kidney. The right kidney measures 12.2 cm. Normal renal cortex. The right cortex measures 1.2 cm. There are multiple renal cysts. The largest measures 7.1 x 6.2 x 5.8 cm and extends exophytically from the up per pole. There is questionable calcification along the cyst wall. There is no right hydronephrosis. Left Kidney: Normal size of the left kidney. The left kidney measures 9.9 cm. Normal renal cortex . The left cortex measures 1.2 cm. There are multiple renal cysts. The largest measures 1.7 x 1.4 x 1.6 cm and is seen in the upper pole. There is no left hydronephrosis. Aorta: The distal aorta is obscured by bowel gas. There are atherosclerotic changes of the visualized aorta without aneurysm.. I.V.C.: The IVC is patent. There is no ascites. IMPRESSION : 1. Limited study due to bowel gas. 2. Bilateral renal cysts. These appears stable when compared with CT of September 15, 2013. 3. Gallstone without secondary evidence of acute cholecystitis. Milena evelin Signed: Jamie Dominguez at 10:28 EST Tel [phone], Service support [phone], CC: Daiana Andrew; Kasey Aguiar MD Dry Press Operator Helper: Signed 14-Apr-2014 PT Discharge Summary Result: Comments: See Note; NOTES: [facility] Physical Therapy [facility] [address] [place] [address] Fax REHABILITATION SERVICES DISCHARGE SUMMARY MR#: [id number] Acct: [id number] Name: SERVANDO TORRE Rep #: [id number] : 1940 74 From: Quang Spain Referring Dr.: Jean-Pierre Adams Status: PRE RCR Eval Date: Discharge Lior e: DATE OF SERVICE: DIAGNOSES: Vertigo and imbalance. PHYSICIAN: Dr. Adams. DATE OF DISCHARGE: April 13, 2014. Srevando Torre was seen in my office for a total of 3 visits, initially eduarda luated on February 01, 2014, latest visit being on March 02, 2014. He was treated with instruction in appropriate home adaptation exercises, was followed up couple of weeks later, but had been non compliant with the exercises and was still about the same as far as I could tell objectively with his VOR. It was still very hard for him to move his head without gaining any symptoms. He followed u p another week after that where he was doing his exercises having no dizziness with exercise. He showed better tolerance to the VOR exercises and was progressed to a busy background and quicker head turns. The plan was to continue following the plan of care for weekly visits to progress his exercises. However, he neglected to schedule any further visits. At this point, he has not been in ther apy in approximately 6 weeks and I am discontinuing him from my care due to noncompliance of attendance, but I would be happy to see him again in the future if found appropriate by physician. Sarahi Spain, PT T: NTS JOB: [id number] <Electronically signed by Quang Spain > 04/14/14 0648 CC: Signed 02-Feb-2014 Inital Evaluation - PT Result: Comments: See Note; NOTES: [facility] Physical Therapy [facility] [address] [place] [address] Fax REHABILITATION SERVICES INITIAL EVALUATION MR#: [id number] Acct: [id number] Name: SERVANDO TORRE Rep #: [id number] : 1940 74 From: Quang Spain Referring Dr.: Jean-Pierre Adams Status: REG RCR Insurance: [employer] PPO Eval Date: DATE OF SERVICE: 02/01/2014 DIAGNOSIS: Vertigo. PHYSICIAN: Dr. Adams. SUBJECTIVE: Servando Torre is a 74-year-old male who is familiar to me as I have just treated him for imbalance from Dr. Aguiar. He was also referred during that time to Dr. Adams who has sent him for evaluation for vertigo. Servando has worked to the point with the therapy where he is independent with appropriate balance and strengthening exercise program. Currently, he says he gets dizzy when he sits up, he spins for a couple of seconds, then it goes away. He says there are some other times whe re he feels more of a dizzy, imbalance feeling, sometimes on steps and sometimes when he is out in public with the busy visual environment, but this does not last long. He has some intermittent neck pain. Dr. Aguiar referred him to Dr. Adams because of the spinning and dragging of his feet, which had been a problem with his previous therapy. He said he still drags his feet sometimes, but he now knows how to stop it and if he focuses he can pick his feet up and walk fairly normally. Dr. Adams did not give him any other treatment or changed any other medications. He has just referred him for physical therapy and he will return to see Dr. Adams in a few months. His goals of treatment are to be able to rid himself of the dizziness, unsteady feeling. OBJECTIVE: The patient ambulates into physical therapy in no acute distress, a little bit slow, but picks up his feet well today. Independent on a firm flat surface. He is able to ascend and descend steps reciproc ally with 1 railing. He scores a 22/30 on the functional gait assessment, is able to stand Romberg position eyes open 30 seconds, eyes closed 30 seconds. He has negative bilateral Hallpike-Tim test, a negative roll test. Ocular motor exam shows no obvious nystagmus with gaze or head shaking. He has difficulty with VOR keeping his eyes on an object especially when he moves his head to the right. Left difficulty with pursuit, but again still a little bit difficulty keeping his eyes on the object. He is distracted very easily and tends to move his body rather than his head, not disengaging his head movement from his body movement. He has negative head thrust test and saccades appear to be pretty good on this date. There are no symptoms as far as dizziness goes with any of these movem ents. ASSESSMENT: At this point, the patient has some unsteadiness and some dizziness and is appropriate for progression of home adaptation exercise to see if this will help with his dizziness at all. He is already on a good gym based balance and strengthening program that we have taught him over the last month that he will continue independently here as a member at [employer] and we have already extensively reviewed with him the importance of focusing on picking his feet up as he walks. At this point, he can do that on his own. GOALS: 1. His dizzy feeling will be abolished. 2. He w ill be able to do 60 seconds of VOR without difficulty to help show improvement in disengaging his head movement from his body movements. 3. He will be independent with appropriate home exercise prog jorgito and progression thereof. 4. Vestibular exercises as needed. PLAN: At this point, I plan to see this patient weekly to every other week for 2-4 visits over the next 4-6 weeks to progress appro priate adaptation exercise and monitor the need for further vestibular intervention as well as monitor his continued gym exercise program, which he is currently independent with. He was agreeable to this course of therapy. Quang Spain, PT T: NTS JOB: [id number] <Electronically signed by Quang Spain > 02/02/14 0921 CC: Signed For Medicare only, by signing this I certify the plan of care. Physicians Signature Date 30-Jan-2014 PT Discharge Summary Result: Comments: See Note; NOTES: [facility] Physical Therapy [facility] [address] [place], [place] [address] Fax REHABILITATION SERVICES DISCHARGE SUMMARY MR#: [id number] Acct: [id number] Name: SERVANDO TORRE Rep #: [id number] : 1940 73 From: Quang Spain Referring Dr.: Kasey Aguiar MD Status: REG RCR Eval Date: Discharge Date: DATE OF SERVICE: 01/27/2014 PHYSICIAN: Dr. Aguiar. DIAGNOSIS: Lacunar stroke shuffling falls. Servando Torre was seen in my office for a total of 7 visits. He was seen initially back o n December 14, 2013, with latest visit being on January 27, 2014, he has been treated with balance assessment as well as instruction and progression of appropriate balance, gait and strengthening exer cise to the point where he is now independent with those exercises, which he will continue both at [facility] as well as [facility] as well as at home for his balance exercises. He is wa lking a couple miles a day at home. He feels like shuffling is 50+ % better, but still notices it at times. He has had no falls recently. His activity is pretty normal at home. He is avoiding ladder s, which I have recommended. He does not drive due to his eyesight, which seems to be his biggest problem at this point, he says sometimes he looks in the distance and looks like things are moving since his stroke. He is seeing an optic specialist. He has also seen neurologist, Dr. Aadms who he states has sent him to therapy for vertigo, although I have not seen that prescription yet. We will do that evaluation next week. OBJECTIVE: He is scoring 26/30 on the functional gait assessment and has met all the goals set for him at the initial evaluation including showing an improvement in hi s functional gait assessment being independent with appropriate exercise program and having no shuffling in his gait in 500 foot walk here at [facility] and be able to walk up and down the steps reciprocally. He does use the railing coming down the steps, he goes up the steps without need to use the railing. At this point, I have reviewed his appropriate exercise with him, which he is doing well. He will continue again as a [employer] member. His also works out here and I am discharging his current chart from physical therapy as he has met those goals and independent with [facility] exercise program, but likely will be evaluating for potential vertigo next week. Quang Spain, PT T: NADEEM JOB: [id number] <Electronically signed by Quang Spain > 01/30/14 0647 CC: Signed 15-Dec-2013 Inital Evaluation - PT Result: Comments: See Note; NOTES: [facility] Physical Therapy [facility] [address] [place] [address] Fax REHABILITATION SERVICES INITIAL EVALUATION MR#: [id number] Acct: [id number] Name: SERVANDO TORRE Rep #: [id number] : 1940 73 From: Quang Spain Referring Dr.: Kasey Augiar MD Status: REG R Insurance: [facility] Eval Date: DATE OF SERVICE: 12/14/2013 PHYSICIAN: Dr. Aguiar. DIAGNOSES: Lacunar stroke, shuffling, falls. SUBJECTIVE: Servando Torre is a 73-year-old male who reports that they f ound out during an MRI, they were doing for GI problems that he had a small stroke. He has noticed a little bit of unsteadiness and shuffling in his walking over the last number of months. He feels what he describes as dizziness and sounds like unsteadiness with moving. He does not feel that when he is sitting or lying down. He has stopped driving recently because of eye trouble. He is sleepin g well. He does not complain of pain or neuropathy. He does not use an assistive device at home, has not fallen recently, did fall once about a year ago, tripping on something on the steps. He does his basic ADLs without too much difficulty, but notice that it is getting a little harder to walk at night and keep up with his grandchildren, as he likes to go watch their sporting events. Chele kingston is a benefit of his and he is planning on starting this sometime in the near future when appropriate. He has a history of macular degeneration, heart attack and an angioplasty in 1959, ana etimes since then he has had a triple bypass and 2 stents placed and then 3 stents placed 2 years ago. He has diabetes, but no neuropathy and he has arthritis. His goals are to be able to walk witho ut dragging his feet. OBJECTIVE: The patient ambulates into physical therapy in no acute distress. He has somewhat of a flat affect, short steps, very little weight shift, but is safe and independe nt on a firm flat surface. He is able to do steps reciprocally with 1 railing for balance. He has good functional strength on the steps. He transfers independently without need to use his upper ex tremities and he has a slight shuffle at the end of walking at approximately 300 feet today. He scores 24/30 on functional gait assessment, which is a couple of points low for his age. He is able to stand 30 seconds in the Romberg position eyes open, 30 seconds eyes closed, 30 seconds on the foam, but only 2-4 seconds on foam with his eyes closed. His sensation of the lower extremities is withi n normal limits to light touch. He has moderate tightness in the heel cords and hamstrings. Reflexes at the patella and Achilles are 2/3. Strength in the ankles 4-, knees and hips 4+/5. Coordination to reciprocal toe tap and heel tapping shows maximal deficits, but wtow-em-grop test is not terrible. Range of motion of lower extremities is within functional limits. Ankle is approximately about 0 degrees of active dorsiflexion. Inversion, eversion showed discoordination, but plenty of range of motion. Upper extremity range of motion is within functional limits. He has some pain lifting his right arm over his head. His lumbar spine range of motion is limited to about 50 percent in all directions, but not painful. ASSESSMENT: At this point, the patient has imbalance, shuffling gait an d is appropriate for physical therapy with a fair prognosis. GOALS: 1. He will score 26/30 on the functional gait assessment to help diminish his risk of falling. 2. He will be independent with appropriate exercise program for a long-term health. 3. There will be no shuffling in his gait, walking up and down steps and one lap around [facility] and he will notice a subjective diminishment in his shuffling. PLAN: At this point, I plan to have this patient in for balance assessment on the [employer] unit per doctor's order. Then likely we will see him 2 times a week for 4 weeks to work on stretching of the posterior lower extremities, balance, weight shifts and ankle strengthening exercises as well as possibly teaching a general exercise program for future performance to keep him healthy and he was agreeable to this course of therapy. I did review with him today appropriate balance safety with his noted deficits today and he was agreeable to this course of therapy. Quang Spain, PT T: NTS JOB: [id number] <Electronically signed by Quang Spain > 12/15/13 0929 CC: Signed For Medicare only, by signing this I certify e plan of care. Physicians Signature Date 15-Sep-2013 History & Physical Examination Result: Comments: [email or web address]; NOTES: [facility] Medical Records Department [address] [place] [address] History and Physical 09/15/13 1159 MR#: [id number] Acct: [id number] Name: SERVANDO TORRE Rep #: [id number] : 1940 73 From: Ruddy Gonzalez MD PCP: Kasey Aguiar MD Status: REG ER Y Location: ED History of Present Illness Date of Admission: 09/15/13 Patient is a pleasant 73-year-old male, who presented to the emergency department with chief complaint of abdominal spasms. Patient was well, until 2 days ago, and then, he has been developing occasional cramps in the lower abdomen. Yesterday, at around 2:30 during the nighttime, the abdominal pain became worse, and he was also somewhat c onfused according to the . He was also unsteady on his feet. The pain progressed during the night, but there is no nausea, vomiting, fevers or chills. No diarrhea or constipation. He presented to the emergency department in the morning today, and the volvulus was diagnosed. I was asked to assist with medical admission given his comorbidities. Patient had a colonoscopy about 2 weeks ago, coul d not be really completed because of redundant colon. Also had a colonoscopy about 6 years ago. He is otherwise functional, drives rarely, walks without any assistance. Lives with his family. 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 Medical History Past Medical History (Chronic Problems): Chronic Problems CAD (coronary artery disease) (Chronic) cabg x 3 2001 ?3 stents afterwards no CHF Mild intermittent asthma (Chronic) Ne phrolithiasis (Chronic) Allergies iodine Allergy (Verified 09/15/13 08:45) Hives Home Medications: Ambulatory Orders Medication Instructions Recorded Amlodipine [Norvasc] 5 mg PO DAILY 0 09/15/13 Pioglitazone [Actos] 15 mg PO DAILY 09/15/13 Ramipril [Altace] 2.5 mg PO DAILY 09/15/13 Surgical History: coronary bypass surgery, - - hiatal hernia Lives: With Family Smoking Status: Never smoker Tobacco Use: Non-smoker Alcohol: None Drugs: None - *Family History Maternal History Items: No pertinent history Review of Systems Constitutional: Denies: Anorexia, Chills, Fev er Eyes: Denies: Vision Change HEENT: Denies: Nasal Congestion Cardiovascular: Denies: Chest Pain, Orthopnea, Paroxysmal Noc. Dyspnea Respiratory: Denies: Cough, Shortness of breath at rest, Shortne ss of breath upon exertion, Sputum production, Wheezing Gastrointestinal: Reports: Abdominal Pain. Denies: Nausea, Vomiting Genitourinary: Denies: Dysuria, Retention, Urgency Musculoskeletal: Denies : Joint swelling Skin: Denies: Rash Neurological: Denies: Balance problems Psychiatric: Denies: Anxiety, Depression Endocrine: Denies: Change in Body Habitus VTE Information - Inpt Only VTE Prese nt on Admission: No - Physical Exam General: Alert, Oriented x3, Cooperative, No apparent distress HEENT: Atraumatic, Normocephalic Oral: Moist Mucosa Neck: Supple, No JVD, Negative Carotid Bruits , Negative Hepatojugular Reflux Lungs: Clear to auscultation, Normal air movement, No rhonchi, No wheeze, No rales Cardiovascular: Regular rate, Regular Rhythm, Normal S1, Normal S2 Abdomen: Hypoact tia Bowel Sounds, Distended, Tender Extremities: No clubbing, No cyanosis, No edema Skin: No rashes Musculoskeletal: No Tenderness to Palpation of Joints or Extremities Neurological: Neuro grossly i ntact Psych/Mental Status: Normal Affect Vital Signs Temp Pulse Resp BP Pulse Ox 61 20 179/64 09/15/13 10:55 09/15/13 08:41 09/15/13 10:55 Weight: 87.997 kg Body Mass Index (BMI) 28.2 F rosi Stick Blood Glucose 104 Laboratory Tests Past 24 Hrs 09/15/13 09/15/13 08:35 09:44 WBC 8.6 RBC 5.00 Hgb 14.8 Hct 45.0 MCV 90.0 MCH 29.6 MCHC 32.9 RDW 13.9 RDW Differentia l 45.2 H Plt Count 171 MPV 11.1 Immature Gran % 0.000 Neut % 70.8 H Lymph % 15.4 L [place] % 12.2 H Eos % 1.2 Baso % 0.4 Absolute Neuts (auto) 6.1 Total Counted Not Reportable Sodium 137 Potassium 3.6 Chloride 102 Carbon Dioxide 28.0 Anion Gap 7 BUN 14 Creatinine 1.3 Est GFR (MDRD) Af Amer Not Reportable Est GFR (MDRD) Non- Af Not Reportable BUN/Creatinine Ratio 10. 8 Glucose 99 Calcium 9.1 Urine Color Yellow Urine Clarity Clear Urine pH 6.0 Ur Specific Pioneer 1.020 Urine Protein Negative Urine Glucose (UA) Normal Urine Ketones Negative Urine O ccult Blood 10 H Urine Nitrite Negative Urine Bilirubin Negative Urine Urobilinogen Normal Ur Leukocyte Esterase Negative Urine RBC 0 SEEN Urine WBC 0-5 SEEN Ur Squamous Epith Cells 0 SEEN Urine Bacteria 0 SEEN Urine Mucus 0 SEEN POC Glucose 09/15/13 09:39 POC Glucose 104 Assessment/Plan #1 volvulus; patient will undergo surgical intervention as per Dr. Gutierrez. Preoperative medical evaluation. Patient is a 73-year-old male, with relatively good functional status, walking without any assistance, living with his family. He may have a mild degree of cognitive impairment at baseline. He does not have her however suffer from dementia. In terms of level of activity, he is able to clamp 2 flights of stairs without any chest pain, shortness of breath, or ezio ication of his legs. He is able to walk couple of blocks without any symptoms as well. He does not have any orthopnea, persistent nocturnal dyspnea, leg swelling. No history of angina. No history of c ongestive heart failure. He does have a history of coronary artery disease, had CABG about 10 years ago, and also had PTCI and stent afterwards. His last stress test was about 3 years ago, as well as his last echocardiogram that is available to me, and both are negative. He does not exhibit any arrhythmia on the monitor at this time, his EKG is relatively normal , and patient is otherwise asymptoma tic with the exception of abdominal pain. Laboratory workup is normal. Patient should be able to proceed with surgical intervention as deemed necessary. I discussed with Dr. Au the fact that he is on dual antiplatelet therapy, he has high risk of bleeding, and he may benefit from platelet transfusion in case surgical bleeding becomes problematic. There is no indication to proceed with any cardiovascular or medical intervention organization this point. We'll watch him closely in the perioperative period. Telemetry monitoring after surgery. According to [facility] perioperative cardiac c alculator, estimated risk of perioperative myocardial infarction or cardiac arrest is 1%, assuming ASA class 3. [email or web address] Plea se click on Import tab for link ; This result contains an attachment that could not be included. 15-Sep-2013 Chest 1 View (Portable) Result: Comments: See Note; NOTES: [facility] Imaging Services [address] [place] [id number] Radiology Report MR#: [id number] Acct: [id number] Name: SERVANDO TORRE Rep #: [id number] : 1940 M 73 From: Cuba Hilton MD PCP: Kasey Aguiar MD Status: REG ER Study: Chest 1 View (Portable) Date of Exam: 09/15/13 Exam# [id number] Ordering Dr: Jean-Pierre Zamorano MD STUDY: X-RAY CHEST REASON FOR EXAM: Male, 73 years old. Chest pain and shortness of breath. TECHNIQUE: Single AP portable view of the chest. COMPARISON: Comparison is made with prior study dated December 05, 2010. FINDINGS: EKG electrodes are seen. Once again, increased markings are seen in the lingular segment of the left lung with blunting of left costophreni c angle. This is seen on the CT scan the abdomen and is in keeping with the or parenchymal scarring. Sternal cerclage wires and vascular clips are present from a prior sternotomy and coronary artery bypass graft procedure (CABG). Mild cardiomegaly. Normal mediastinum and demi. Normal visualized pulmonary arteries. There is atherosclerotic tortuosity of the aortic arch and descending thoracic ao rta. Normal visualized thoracic spine. Normal visualized ribs, clavicles, and shoulders. There is no demonstrated abnormality of the visualized soft tissue structures of the upper abdomen. IMPRESSION: Stable lobe parenchymal changes at the left lung base. Electronically Signed: Cuba Hilton MD at 11:38 EDT Tel [phone], Service sup port [phone], RAD/Chest 1 View (Portable) IMPRESSION: Stable lobe parenchymal changes at the left lung base. Electronically Signed: Cuba Hilton MD at 11:38 EDT Tel [phone], Service support [phone], CC: Kasey Aguiar MD; Jean-Pierre Zamorano MD Dry Press Operator Helper: Signed 15-Sep-2013 Abdomen/Pelvis without Cont Result: Comments: See Note; NOTES: [facility] Imaging Services [address] [place] [id number] CAT Scan Report MR#: [id number] Acct: [id number] Name: SERVANDO TORRE Rep #: [id number] : 1940 M 73 From: Cuba Hilton MD PCP: Kasey Aguiar MD Status: REG ER Study: Abdomen/Pelvis without Cont Date of Exam: 09/15/13 Exam# [id number] Ordering Dr: Jean-Pierre Zamorano MD [facility] DY: CT ABDOMEN AND PELVIS WITHOUT CONTRAST REASON FOR EXAM: Male, 73 years old. 2 day history of lower abdominal pain. RADIATION DOSAGE (If Supplied By Facility): CTDIvol = ( 17.29 ) mGy, DLP = ( 997.3 ) mGycm TECHNIQUE: Transaxial images were obtained from the dome of the diaphragm to the symphysis pubis without oral contrast, and without intravenous contrast. Sagittal and coronal images we re reconstructed. COMPARISON: Comparison is made with prior examination dated July 17, 2009. FINDINGS: Increased linear markings at the lung bases suggestive of scarring. There is evidence of a stable 2.4 cm pleural-based nodule in the posterior medial segment of the left lower lobe. This is unchanged and most likely represents a focal area of scarring. M ild cardiomegaly. Coronary artery calcification. Normal liver. Normal gallbladder and extrahepatic biliary system. Normal spleen. Normal pancreas. Normal bilateral adrenal glands. There is evide nce of right renal cysts. The largest measures 5.5 cm x 6.8 cm. Curvilinear calcification is seen along its anterior aspect. There is also evidence of a 2.2 cm cyst along the posterior inferior aspect of the right kidney. Irregular mural calcifications are seen. This is new as compared to prior study. Stable cyst in the lower pole of the left kidney. Moderate degree of sliding hiatal hernia. Nor mal small intestine. There is dilatation of the ascending colon and transverse colon as well as the descending colon down to the region of the sigmoid colon. There is a transition point in the mid si gmoid colon where there is circumferential wall thickening of the sigmoid colon with increased markings in the surrounding mesentery. There appears to be swirling of the root of the mesentery at that level with a evidence of small lymph nodes. A neoplastic process with possible sigmoid volvulus should be ruled out. The distal sigmoid colon and rectum are not dilated. The appendix is visualized an d appears normal. There is diffuse atherosclerotic calcification of the abdominal aorta, without a demonstrated aneurysm. Normal inferior vena cava. Normal retroperitoneum. Normal urinary bladder . Small bilateral inguinal hernias containing fat. Disc space narrowing at the L5-S1 level with disc degeneration. 50% loss of height of the L1 vertebra. IMPRE SSION: Findings suggestive of sigmoid volvulus in the mid portions of the sigmoid colon with evidence of circumferential wall thickening and increased markings in the mid and carry. There is also radha dence of a swirl appearance with small lymph nodes. Right renal cyst with mural calcification. N.B. : The above information has been verbally conveyed by Cuba Hilton MD to Dr Zamorano, Referri Physician, on 09/15/2013 10:46:55 (ET). Electronically Signed: Cuba Hilton MD at 10:39 EDT Tel [phone], Service support [phone], N.B. : The above i nformation has been verbally conveyed by Cuba Hilton MD to Dr Zamorano, Referring Physician, on 09/15/2013 10:46:55 (ET). CC: Kasey Aguiar MD; Jean-Pierre Zamorano MD Dry Press Operator Helper: Signed 15-Sep-2013 Brain/Head without Contrast Result: Comments: See Note; NOTES: [facility] Imaging Services [address] [place] [id number] CAT Scan Report MR#: [id number] Acct: [id number] Name: SERVANDO TORRE Rep #: [id number] : 1940 M 73 From: Cuba Hilton MD PCP: Kasey Aguiar MD Status: REG ER Study: Brain/Head without Contrast Date of Exam: 09/15/13 Exam# [id number] Ordering Dr: Jean-Pierre Zamorano MD [facility] DY: CT BRAIN WITHOUT CONTRAST REASON FOR EXAM: Male, 73 years old. Confusion. RADIATION DOSAGE (If Supplied By Facility): CTDIvol = ( 17.29 ) mGy, DLP = ( 997.3 ) mGycm TECHNIQUE: Transaxial CT i maging of the brain was performed without administration of intravenous contrast material. COMPARISON: None. FINDINGS: Normal soft tissue structures. Normal ca lvarium. There is mild cerebral atrophy with widening of the extra-axial spaces and ventricular dilatation. There are areas of decreased attenuation within the white matter tracts of the supratentor ial brain, consistent with microvascular disease changes. Old lacunar infarct in the left basal ganglion. Old lacunar infarct in the insular cortex of the right temporal lobe. Normal brainstem. Dary l cerebellum. There is no intracranial hemorrhage. There are no findings of an acute ischemic infarction. There is calcification of the vertebral arteries as well as the cavernous portions of the in ternal carotid arteries bilaterally. Normal visualized paranasal sinuses. IMPRESSION: Chronic involutional changes of the brain. 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 Status: Active Smoking Status Name Dates Details Former smoker Vital Signs Date Test Result Details [id number] Temperature 97.6 f Pulse 55 /min Comments: Pattern: Regular Respiration Rate 17 /min Comments: Pattern: Unlabored O2 SAT 97 % Comments: Room air BP Systolic 116 mm[Hg] Comments: Patient Position: Sitting; Cuff Location: Left Arm; Cuff Size: Standard BP Diastolic 76 mm[Hg] Comments: Patient Position: Sitting; Cuff Location: Left Arm; Cuff Size: Standard Weight 187 lb Height 69 in Body Mass Index Calculated 27.61 kg/m2 Body Surface Area Calculated 2.01 m2 :26 Temperature 98.7 f Pulse 59 /min Comments: Pattern: Regular Respiration Rate 18 /min Comments: Pattern: Unlabored O2 SAT 98 % Comments: Room air BP Systolic 126 mm[Hg] Comments: Patient Position: Sitting; Cuff Location: Left Arm; Cuff Size: Standard BP Diastolic 82 mm[Hg] Comments: Patient Position: Sitting; Cuff Location: Left Arm; Cuff Size: Standard Weight 193.375 lb Height 69 in Body Mass Index Calculated 28.56 kg/m2 Body Surface Area Calculated 2.04 m2 :47 Temperature 97.5 f Pulse 72 /min Comments: Pattern: Regular Respiration Rate 16 /min Comments: Pattern: Unlabored O2 SAT 96 % Comments: Room air BP Systolic 118 mm[Hg] Comments: Patient Position: Sitting; Cuff Location: Left Arm; Cuff Size: Standard BP Diastolic 76 mm[Hg] Comments: Patient Position: Sitting; Cuff Location: Left Arm; Cuff Size: Standard Weight 193.375 lb Height 69 in Body Mass Index Calculated 28.56 kg/m2 Body Surface Area Calculated 2.04 m2 :34 Temperature 97.3 f Pulse 78 /min Comments: Pattern: Regular Respiration Rate 17 /min Comments: Pattern: Unlabored BP Systolic 118 mm[Hg] Comments: Patient Position: Sitting; Cuff Location: Left Arm; Cuff Size: Standard BP Diastolic 76 mm[Hg] Comments: Patient Position: Sitting; Cuff Location: Left Arm; Cuff Size: Standard Weight 189.125 lb Height 69 in Body Mass Index Calculated 27.93 kg/m2 Body Surface Area Calculated 2.02 m2 :59 Temperature 97.9 f Pulse 56 /min Comments: Pattern: Regular Respiration Rate 18 /min Comments: Pattern: Unlabored O2 SAT 94 % Comments: Room air BP Systolic 120 mm[Hg] Comments: Patient Position: Sitting; Cuff Location: Left Arm; Cuff Size: Standard BP Diastolic 80 mm[Hg] Comments: Patient Position: Sitting; Cuff Location: Left Arm; Cuff Size: Standard Weight 191 lb Height 69 in Body Mass Index Calculated 28.21 kg/m2 Body Surface Area Calculated 2.03 m2 :15 Temperature 97.4 f Pulse 64 /min Comments: Pattern: Regular Respiration Rate 16 /min Comments: Pattern: Unlabored O2 SAT 97 % Comments: Room air BP Systolic 122 mm[Hg] Comments: Patient Position: Sitting; Cuff Location: Left Arm; Cuff Size: Standard BP Diastolic 80 mm[Hg] Comments: Patient Position: Sitting; Cuff Location: Left Arm; Cuff Size: Standard Weight 191.25 lb Height 69 in Body Mass Index Calculated 28.24 kg/m2 Body Surface Area Calculated 2.03 m2 :32 Temperature 97.4 f Pulse 62 /min Comments: Pattern: Regular Respiration Rate 16 /min Comments: Pattern: Unlabored O2 SAT 94 % Comments: Room air BP Systolic 122 mm[Hg] Comments: Patient Position: Sitting; Cuff Location: Left Arm; Cuff Size: Standard BP Diastolic 78 mm[Hg] Comments: Patient Position: Sitting; Cuff Location: Left Arm; Cuff Size: Standard Weight 192.125 lb Height 69 in Body Mass Index Calculated 28.37 kg/m2 Body Surface Area Calculated 2.03 m2 :39 Temperature 98.2 f Pulse 51 /min Comments: Pattern: Regular O2 SAT 97 % Comments: Room air BP Systolic 112 mm[Hg] Comments: Patient Position: Sitting; Cuff Location: Left Arm; Cuff Size: Standard BP Diastolic 78 mm[Hg] Comments: Patient Position: Sitting; Cuff Location: Left Arm; Cuff Size: Standard Weight 191 lb Height 69 in Body Mass Index Calculated 28.21 kg/m2 Body Surface Area Calculated 2.03 m2 :24 Temperature 97.2 f Comments: Method: Temporal Pulse 72 /min Comments: Pattern: Regular Respiration Rate 15 /min Comments: Pattern: Unlabored O2 SAT 98 % Comments: Room air BP Systolic 114 mm[Hg] Comments: Patient Position: Sitting; Cuff Location: Left Arm; Cuff Size: Standard BP Diastolic 70 mm[Hg] Comments: Patient Position: Sitting; Cuff Location: Left Arm; Cuff Size: Standard Weight 199 lb Height 69 in Body Mass Index Calculated 29.39 kg/m2 Body Surface Area Calculated 2.06 m2 :18 Temperature 97 f Pulse 60 /min Comments: Pattern: Regular Respiration Rate 18 /min Comments: Pattern: Unlabored O2 SAT 95 % Comments: Room air BP Systolic 116 mm[Hg] Comments: Patient Position: Sitting; Cuff Location: Left Arm; Cuff Size: Standard BP Diastolic 74 mm[Hg] Comments: Patient Position: Sitting; Cuff Location: Left Arm; Cuff Size: Standard Weight 201 lb Height 69 in Body Mass Index Calculated 29.68 kg/m2 Body Surface Area Calculated 2.07 m2 :47 Temperature 97.6 f Comments: Method: Temporal Pulse 70 /min Comments: Pattern: Regular Respiration Rate 18 /min Comments: Pattern: Unlabored O2 SAT 95 % Comments: Room air BP Systolic 110 mm[Hg] Comments: Patient Position: Sitting; Cuff Location: Left Arm; Cuff Size: Standard BP Diastolic 70 mm[Hg] Comments: Patient Position: Sitting; Cuff Location: Left Arm; Cuff Size: Standard Weight 201 lb Height 69 in Body Mass Index Calculated 29.68 kg/m2 Body Surface Area Calculated 2.07 m2 :07 Temperature 97.6 f Comments: Method: Temporal Pulse 64 /min Comments: Pattern: Regular Respiration Rate 20 /min Comments: Pattern: Unlabored O2 SAT 99 % Comments: Room air BP Systolic 120 mm[Hg] Comments: Patient Position: Sitting; Cuff Location: Left Arm; Cuff Size: Standard BP Diastolic 80 mm[Hg] Comments: Patient Position: Sitting; Cuff Location: Left Arm; Cuff Size: Standard Weight 199 lb Height 69 in Body Mass Index Calculated 29.39 kg/m2 Body Surface Area Calculated 2.06 m2 :32 Temperature 97.1 f Comments: Method: Temporal Pulse 58 /min Comments: Pattern: Regular Respiration Rate 18 /min Comments: Pattern: Unlabored O2 SAT 98 % Comments: Room air BP Systolic 120 mm[Hg] Comments: Patient Position: Sitting; Cuff Location: Left Arm; Cuff Size: Standard BP Diastolic 76 mm[Hg] Comments: Patient Position: Sitting; Cuff Location: Left Arm; Cuff Size: Standard Weight 199 lb Height 69 in Body Mass Index Calculated 29.39 kg/m2 Body Surface Area Calculated 2.06 m2 :57 Pulse 54 /min Comments: Pattern: Regular BP Systolic 116 mm[Hg] Comments: Patient Position: Standing; Cuff Location: Left Arm; Cuff Size: Standard BP Diastolic 58 mm[Hg] Comments: Patient Position: Standing; Cuff Location: Left Arm; Cuff Size: Standard :56 Pulse 54 /min Comments: Pattern: Regular BP Systolic 116 mm[Hg] Comments: Patient Position: Sitting; Cuff Location: Left Arm; Cuff Size: Standard BP Diastolic 60 mm[Hg] Comments: Patient Position: Sitting; Cuff Location: Left Arm; Cuff Size: Standard :52 Pulse 54 /min Comments: Pattern: Regular BP Systolic 122 mm[Hg] Comments: Patient Position: Supine; Cuff Location: Left Arm; Cuff Size: Standard BP Diastolic 72 mm[Hg] Comments: Patient Position: Supine; Cuff Location: Left Arm; Cuff Size: Standard :57 Temperature 97.6 f Comments: Method: Temporal Pulse 64 /min Comments: Pattern: Regular Respiration Rate 18 /min Comments: Pattern: Unlabored O2 SAT 98 % Comments: Room air BP Systolic 118 mm[Hg] Comments: Patient Position: Sitting; Cuff Location: Left Arm; Cuff Size: Standard BP Diastolic 70 mm[Hg] Comments: Patient Position: Sitting; Cuff Location: Left Arm; Cuff Size: Standard Weight 199 lb Height 69 in Body Mass Index Calculated 29.39 kg/m2 Body Surface Area Calculated 2.06 m2 :28 Temperature 97.7 f Comments: Method: Oral Pulse 64 /min Comments: Pattern: Regular Respiration Rate 16 /min Comments: Pattern: Unlabored BP Systolic 115 mm[Hg] Comments: Patient Position: Sitting; Cuff Location: Left Arm; Cuff Size: Standard BP Diastolic 64 mm[Hg] Comments: Patient Position: Sitting; Cuff Location: Left Arm; Cuff Size: Standard Weight 202 lb Height 69 in Body Mass Index Calculated 29.83 kg/m2 Body Surface Area Calculated 2.07 m2 :33 Temperature 97.6 f Comments: Method: Temporal Pulse 68 /min Comments: Pattern: Regular Respiration Rate 18 /min Comments: Pattern: Unlabored O2 SAT 98 % Comments: Room air BP Systolic 120 mm[Hg] Comments: Patient Position: Sitting; Cuff Location: Left Arm; Cuff Size: Standard BP Diastolic 78 mm[Hg] Comments: Patient Position: Sitting; Cuff Location: Left Arm; Cuff Size: Standard Weight 202 lb Height 69 in Body Mass Index Calculated 29.83 kg/m2 Body Surface Area Calculated 2.07 m2 :51 Temperature 97.2 f Comments: Method: Oral Pulse 64 /min Comments: Pattern: Regular O2 SAT 97 % Comments: Room air BP Systolic 124 mm[Hg] Comments: Patient Position: Sitting; Cuff Location: Left Arm; Cuff Size: Standard BP Diastolic 72 mm[Hg] Comments: Patient Position: Sitting; Cuff Location: Left Arm; Cuff Size: Standard Weight 198 lb Height 69 in Body Mass Index Calculated 29.24 kg/m2 Body Surface Area Calculated 2.06 m2 :54 Temperature 98 f Comments: Method: Oral Pulse 56 /min Comments: Pattern: Regular O2 SAT 96 % Comments: Room air BP Systolic 118 mm[Hg] Comments: Patient Position: Sitting; Cuff Location: Left Arm; Cuff Size: Standard BP Diastolic 70 mm[Hg] Comments: Patient Position: Sitting; Cuff Location: Left Arm; Cuff Size: Standard Weight 198 lb Height 69 in Body Mass Index Calculated 29.24 kg/m2 Body Surface Area Calculated 2.06 m2 :20 Temperature 97.6 f Comments: Method: Oral Pulse 72 /min Comments: Pattern: Regular Respiration Rate 20 /min Comments: Pattern: Unlabored BP Systolic 124 mm[Hg] Comments: Patient Position: Sitting; Cuff Location: Left Arm; Cuff Size: Standard BP Diastolic 78 mm[Hg] Comments: Patient Position: Sitting; Cuff Location: Left Arm; Cuff Size: Standard Weight 198 lb Height 69 in Body Mass Index Calculated 29.24 kg/m2 Body Surface Area Calculated 2.06 m2 :51 Temperature 98.4 f Comments: Method: Oral Pulse 89 /min Comments: Pattern: Regular Respiration Rate 16 /min Comments: Pattern: Unlabored O2 SAT 97 % Comments: Room air BP Systolic 134 mm[Hg] Comments: Patient Position: Sitting; Cuff Location: Left Arm; Cuff Size: Standard BP Diastolic 62 mm[Hg] Comments: Patient Position: Sitting; Cuff Location: Left Arm; Cuff Size: Standard Weight 195 lb Height 69 in Body Mass Index Calculated 28.8 kg/m2 Body Surface Area Calculated 2.04 m2 :32 Temperature 97.6 f Comments: Method: Oral Pulse 64 /min Comments: Pattern: Regular Respiration Rate 18 /min Comments: Pattern: Unlabored BP Systolic 122 mm[Hg] Comments: Patient Position: Sitting; Cuff Location: Left Arm; Cuff Size: Standard BP Diastolic 78 mm[Hg] Comments: Patient Position: Sitting; Cuff Location: Left Arm; Cuff Size: Standard Weight 194 lb Height 69 in Body Mass Index Calculated 28.65 kg/m2 Body Surface Area Calculated 2.04 m2 :13 Temperature 97.9 f Comments: Method: Oral Pulse 68 /min Comments: Pattern: Regular Respiration Rate 20 /min Comments: Pattern: Unlabored BP Systolic 124 mm[Hg] Comments: Patient Position: Sitting; Cuff Location: Left Arm; Cuff Size: Standard BP Diastolic 78 mm[Hg] Comments: Patient Position: Sitting; Cuff Location: Left Arm; Cuff Size: Standard Weight 191 lb Height 69 in Body Mass Index Calculated 28.21 kg/m2 Body Surface Area Calculated 2.03 m2 :26 Temperature 97.6 f Comments: Method: Temporal Pulse 72 /min Comments: Pattern: Regular Respiration Rate 16 /min Comments: Pattern: Unlabored O2 SAT 97 % Comments: Room air BP Systolic 126 mm[Hg] Comments: Patient Position: Sitting; Cuff Location: Left Arm; Cuff Size: Standard BP Diastolic 74 mm[Hg] Comments: Patient Position: Sitting; Cuff Location: Left Arm; Cuff Size: Standard Weight 191 lb Height 69 in Body Mass Index Calculated 28.21 kg/m2 Body Surface Area Calculated 2.03 m2 :53 Temperature 97.9 f Comments: Method: Tympanic Pulse 65 /min Comments: Pattern: Regular Respiration Rate 16 /min Comments: Pattern: Unlabored O2 SAT 98 % Comments: Room air BP Systolic 102 mm[Hg] Comments: Patient Position: Sitting; Cuff Location: Left Arm; Cuff Size: Standard BP Diastolic 74 mm[Hg] Comments: Patient Position: Sitting; Cuff Location: Left Arm; Cuff Size: Standard Weight 194 lb Height 69 in Body Mass Index Calculated 28.65 kg/m2 Body Surface Area Calculated 2.04 m2 :28 Temperature 98.4 f Comments: Method: Oral Pulse 68 /min Comments: Pattern: Regular Respiration Rate 16 /min O2 SAT 97 % Comments: Room air BP Systolic 122 mm[Hg] Comments: Patient Position: Sitting; Cuff Location: Left Arm; Cuff Size: Standard BP Diastolic 70 mm[Hg] Comments: Patient Position: Sitting; Cuff Location: Left Arm; Cuff Size: Standard Weight 200 lb Height 69 in Body Mass Index Calculated 29.53 kg/m2 Body Surface Area Calculated 2.07 m2 :47 Temperature 97.6 f Comments: Method: Temporal Pulse 72 /min Comments: Pattern: Regular Respiration Rate 16 /min Comments: Pattern: Unlabored O2 SAT 96 % Comments: Room air BP Systolic 138 mm[Hg] Comments: Patient Position: Sitting; Cuff Location: Left Arm; Cuff Size: Standard BP Diastolic 86 mm[Hg] Comments: Patient Position: Sitting; Cuff Location: Left Arm; Cuff Size: Standard Weight 200 lb Height 69 in Body Mass Index Calculated 29.53 kg/m2 Body Surface Area Calculated 2.07 m2 :04 Temperature 98.7 f Comments: Method: Oral Pulse 72 /min Comments: Pattern: Regular Respiration Rate 16 /min Comments: Pattern: Unlabored BP Systolic 120 mm[Hg] Comments: Patient Position: Sitting; Cuff Location: Left Arm; Cuff Size: Standard BP Diastolic 76 mm[Hg] Comments: Patient Position: Sitting; Cuff Location: Left Arm; Cuff Size: Standard Weight 211 lb Height 69 in Body Mass Index Calculated 31.16 kg/m2 Body Surface Area Calculated 2.11 m2 :11 Temperature 97.1 f Comments: Method: Oral Pulse 62 /min Comments: Pattern: Regular Respiration Rate 18 /min O2 SAT 94 % Comments: Room air BP Systolic 128 mm[Hg] Comments: Patient Position: Sitting; Cuff Location: Left Arm; Cuff Size: Standard BP Diastolic 82 mm[Hg] Comments: Patient Position: Sitting; Cuff Location: Left Arm; Cuff Size: Standard Weight 211 lb Height 69 in Body Mass Index Calculated 31.16 kg/m2 Body Surface Area Calculated 2.11 m2 :03 Temperature 97.6 f Comments: Method: Oral Pulse 64 /min Comments: Pattern: Regular Respiration Rate 18 /min Comments: Pattern: Unlabored BP Systolic 126 mm[Hg] Comments: Patient Position: Sitting; Cuff Location: Left Arm; Cuff Size: Standard BP Diastolic 80 mm[Hg] Comments: Patient Position: Sitting; Cuff Location: Left Arm; Cuff Size: Standard Weight 211 lb Height 69 in Body Mass Index Calculated 31.16 kg/m2 Body Surface Area Calculated 2.11 m2 :42 Temperature 96.8 f Comments: Method: Oral Pulse 58 /min Comments: Pattern: Regular Respiration Rate 20 /min Comments: Pattern: Unlabored O2 SAT 95 % Comments: Room air BP Systolic 132 mm[Hg] Comments: Patient Position: Sitting; Cuff Location: Left Arm; Cuff Size: Standard BP Diastolic 78 mm[Hg] Comments: Patient Position: Sitting; Cuff Location: Left Arm; Cuff Size: Standard Weight 205.5625 lb Height 69 in Body Mass Index Calculated 30.36 kg/m2 Body Surface Area Calculated 2.09 m2 :45 Temperature 97.6 f Comments: Method: Oral Pulse 64 /min Comments: Pattern: Regular Respiration Rate 18 /min Comments: Pattern: Unlabored BP Systolic 124 mm[Hg] Comments: Patient Position: Sitting; Cuff Location: Left Arm; Cuff Size: Standard BP Diastolic 78 mm[Hg] Comments: Patient Position: Sitting; Cuff Location: Left Arm; Cuff Size: Standard Weight 210 lb Height 69 in Body Mass Index Calculated 31.01 kg/m2 Body Surface Area Calculated 2.11 m2 :15 Temperature 97.6 f Comments: Method: Oral Pulse 62 /min Comments: Pattern: Regular Respiration Rate 18 /min Comments: Pattern: Unlabored BP Systolic 130 mm[Hg] Comments: Patient Position: Sitting; Cuff Location: Left Arm; Cuff Size: Standard BP Diastolic 80 mm[Hg] Comments: Patient Position: Sitting; Cuff Location: Left Arm; Cuff Size: Standard Weight 208 lb Height 69 in Body Mass Index Calculated 30.72 kg/m2 Body Surface Area Calculated 2.1 m2 :14 Temperature 98 f Comments: Method: Oral Pulse 68 /min Comments: Pattern: Regular Respiration Rate 18 /min Comments: Pattern: Unlabored BP Systolic 140 mm[Hg] Comments: Patient Position: Sitting; Cuff Location: Left Arm; Cuff Size: Standard BP Diastolic 78 mm[Hg] Comments: Patient Position: Sitting; Cuff Location: Left Arm; Cuff Size: Standard Weight 201.5625 lb :36 Pulse 58 /min Comments: Pattern: Regular Respiration Rate 18 /min Comments: Pattern: Unlabored BP Systolic 120 mm[Hg] Comments: Patient Position: Sitting; Cuff Location: Left Arm; Cuff Size: Standard BP Diastolic 80 mm[Hg] Comments: Patient Position: Sitting; Cuff Location: Left Arm; Cuff Size: Standard Weight 200 lb :28 Pulse 70 /min Comments: Pattern: Regular Respiration Rate 18 /min Comments: Pattern: Unlabored BP Systolic 122 mm[Hg] Comments: Patient Position: Sitting; Cuff Location: Left Arm; Cuff Size: Standard BP Diastolic 78 mm[Hg] Comments: Patient Position: Sitting; Cuff Location: Left Arm; Cuff Size: Standard Weight 204 lb :21 Pulse 64 /min Comments: Pattern: Regular Respiration Rate 16 /min Comments: Pattern: Unlabored BP Systolic 120 mm[Hg] Comments: Patient Position: Sitting; Cuff Location: Left Arm; Cuff Size: Standard BP Diastolic 78 mm[Hg] Comments: Patient Position: Sitting; Cuff Location: Left Arm; Cuff Size: Standard Weight 204 lb Height 0 in Head Circumference 0.00 cm :43 Pulse 60 /min Comments: Pattern: Regular Respiration Rate 16 /min Comments: Pattern: Unlabored BP Systolic 118 mm[Hg] Comments: Patient Position: Sitting; Cuff Location: Left Arm; Cuff Size: Large BP Diastolic 78 mm[Hg] Comments: Patient Position: Sitting; Cuff Location: Left Arm; Cuff Size: Large Weight 197 lb Height 0 in Head Circumference 0.00 cm :01 Pulse 68 /min Comments: Pattern: Regular Respiration Rate 16 /min Comments: Pattern: Unlabored BP Systolic 116 mm[Hg] Comments: Patient Position: Sitting; Cuff Location: Left Arm; Cuff Size: Large BP Diastolic 78 mm[Hg] Comments: Patient Position: Sitting; Cuff Location: Left Arm; Cuff Size: Large Weight 204.025 lb Height 0 in Head Circumference 0.00 cm :02 Pulse 62 /min Comments: Pattern: Regular Respiration Rate 16 /min Comments: Pattern: Unlabored BP Systolic 118 mm[Hg] Comments: Patient Position: Sitting; Cuff Location: Left Arm; Cuff Size: Standard BP Diastolic 78 mm[Hg] Comments: Patient Position: Sitting; Cuff Location: Left Arm; Cuff Size: Standard Weight 205 lb Height 0 in Head Circumference 0.00 cm :15 Pulse 64 /min Comments: Pattern: Regular Respiration Rate 16 /min Comments: Pattern: Unlabored BP Systolic 112 mm[Hg] Comments: Patient Position: Sitting; Cuff Location: Left Arm; Cuff Size: Large BP Diastolic 84 mm[Hg] Comments: Patient Position: Sitting; Cuff Location: Left Arm; Cuff Size: Large Weight 203.5625 lb Height 0 in Head Circumference 0.00 cm :44 Pulse 54 /min Comments: Pattern: Regular Respiration Rate 16 /min Comments: Pattern: Unlabored BP Systolic 132 mm[Hg] Comments: Patient Position: Sitting; Cuff Location: Left Arm; Cuff Size: Standard BP Diastolic 70 mm[Hg] Comments: Patient Position: Sitting; Cuff Location: Left Arm; Cuff Size: Standard Weight 206.4375 lb Height 69 in Body Mass Index Calculated 30.49 kg/m2 Body Surface Area Calculated 2.09 m2 Head Circumference 0.00 cm :16 Temperature 98.2 f Comments: Method: Oral Pulse 72 /min Comments: Pattern: Regular Respiration Rate 18 /min Comments: Pattern: Unlabored BP Systolic 122 mm[Hg] Comments: Patient Position: Sitting; Cuff Location: Left Arm; Cuff Size: Standard BP Diastolic 78 mm[Hg] Comments: Patient Position: Sitting; Cuff Location: Left Arm; Cuff Size: Standard Weight 206 lb Height 0 in Head Circumference 0.00 cm :59 Temperature 98.2 f Comments: Method: Oral Pulse 70 /min Comments: Pattern: Regular Respiration Rate 18 /min Comments: Pattern: Unlabored BP Systolic 120 mm[Hg] Comments: Patient Position: Sitting; Cuff Location: Left Arm; Cuff Size: Standard BP Diastolic 80 mm[Hg] Comments: Patient Position: Sitting; Cuff Location: Left Arm; Cuff Size: Standard Weight 0 lb Height 0 in Head Circumference 0.00 cm :13 Temperature 97.6 f Comments: Method: Oral Pulse 72 /min Comments: Pattern: Regular Respiration Rate 18 /min Comments: Pattern: Unlabored BP Systolic 122 mm[Hg] Comments: Patient Position: Sitting; Cuff Location: Left Arm; Cuff Size: Standard BP Diastolic 78 mm[Hg] Comments: Patient Position: Sitting; Cuff Location: Left Arm; Cuff Size: Standard Weight 208 lb Height 0 in Head Circumference 0.00 cm :59 Temperature 98.6 f Comments: Method: Oral Pulse 72 /min Comments: Pattern: Regular Respiration Rate 18 /min Comments: Pattern: Unlabored BP Systolic 124 mm[Hg] Comments: Patient Position: Sitting; Cuff Location: Left Arm; Cuff Size: Standard BP Diastolic 80 mm[Hg] Comments: Patient Position: Sitting; Cuff Location: Left Arm; Cuff Size: Standard Weight 208 lb Height 0 in Head Circumference 0.00 cm :57 Temperature 97.6 f Comments: Method: Oral Pulse 70 /min Comments: Pattern: Regular Respiration Rate 20 /min Comments: Pattern: Unlabored BP Systolic 122 mm[Hg] Comments: Patient Position: Sitting; Cuff Location: Left Arm; Cuff Size: Standard BP Diastolic 80 mm[Hg] Comments: Patient Position: Sitting; Cuff Location: Left Arm; Cuff Size: Standard Weight 209 lb Height 0 in Head Circumference 0.00 cm :05 Temperature 97.7 f Comments: Method: Oral Pulse 70 /min Comments: Pattern: Regular Respiration Rate 20 /min Comments: Pattern: Unlabored BP Systolic 120 mm[Hg] Comments: Patient Position: Sitting; Cuff Location: Left Arm; Cuff Size: Standard BP Diastolic 80 mm[Hg] Comments: Patient Position: Sitting; Cuff Location: Left Arm; Cuff Size: Standard Weight 218 lb Height 0 in Head Circumference 0.00 cm :55 Temperature 97.2 f Comments: Method: Oral Pulse 68 /min Comments: Pattern: Regular Respiration Rate 19 /min Comments: Pattern: Unlabored O2 SAT 96 % Comments: Room air BP Systolic 122 mm[Hg] Comments: Patient Position: Sitting; Cuff Location: Left Arm; Cuff Size: Standard BP Diastolic 80 mm[Hg] Comments: Patient Position: Sitting; Cuff Location: Left Arm; Cuff Size: Standard Weight 218 lb Height 0 in Head Circumference 0.00 cm :10 Temperature 97.6 f Comments: Method: Oral Pulse 72 /min Comments: Pattern: Regular Respiration Rate 20 /min Comments: Pattern: Unlabored BP Systolic 120 mm[Hg] Comments: Patient Position: Sitting; Cuff Location: Left Arm; Cuff Size: Standard BP Diastolic 80 mm[Hg] Comments: Patient Position: Sitting; Cuff Location: Left Arm; Cuff Size: Standard Weight 218 lb Height 0 in Head Circumference 0.00 cm :08 Temperature 97.1 f Comments: Method: Oral Pulse 66 /min Comments: Pattern: Regular Respiration Rate 16 /min Comments: Pattern: Undefined BP Systolic 122 mm[Hg] Comments: Patient Position: Sitting; Cuff Location: Undefined; Cuff Size: Undefined BP Diastolic 78 mm[Hg] Comments: Patient Position: Sitting; Cuff Location: Undefined; Cuff Size: Undefined Weight 221 lb Height 0 in Head Circumference 0.00 cm Results Date Description Value Details [id number] GLUCOSE ([id number]) Comments: PATIENT NOT FASTINGPERFORMED BY: [facility] [id number] [facility] [id number] Glucose 113 mg/dL (Abnormal) Range: 65-99 6-Hlo-108217:20 HGB A1C ([id number]) Comments: PATIENT NOT FASTINGPERFORMED BY: [facility]CoMor[facility]own [facility] CenterEpyrwh0329 [facility] [id number] Hemoglobin A1c 6.0 % (Abnormal) Range: 4.8-5.6 Comments: . Pre-diabetes: 5.7 - 6.4 Diabetes: >6.4 Glycemic control for adults with diabetes: <7.0 [id number] Metabolic Panel, Comprehensive Comments: PATIENT WAS FASTINGPERFORMED BY: [facility]CoMor[facility]own [facility] CenterPxfjlo5746 [facility] [id number] ([id number]) ALT (SGPT) 11 [iU]/L (Normal) Range: 0-44 AST (SGOT) 20 [iU]/L (Normal) Range: 0-40 Alkaline Phosphatase 63 [iU]/L (Normal) Range: 39-117 Bilirubin, Total 0.4 mg/dL (Normal) Range: 0.0-1.2 A/G Ratio 1.3 (Normal) Range: 1.2-2.2 Globulin, Total 3.0 g/dL (Normal) Range: 1.5-4.5 Albumin 3.8 g/dL (Normal) Range: 3.5-4.8 Protein, Total 6.8 g/dL (Normal) Range: 6.0-8.5 Calcium 9.3 mg/dL (Normal) Range: 8.6-10.2 Carbon Dioxide, Total 25 mmol/L (Normal) Range: 18-29 Comments: Effective October 05, 2017 Carbon Dioxide, Total reference interval will be changing to: Age Male Female 0 days - 30 days 16 - 16 - 29 31 days - 1 year 15 - 25 15 - 25 2 years - 5 years 17 - 26 17 - 26 6 y ears - 12 years 19 - 27 19 - 27 >12 years 20 - 29 20 - 29 Chloride 103 mmol/L (Normal) Range: 96-106 Potassium 5.1 mmol/L (Normal) Range: 3.5-5.2 Sodium 142 mmol/L (Normal) Range: 134-144 BUN/Creatinine Ratio 13 (Normal) Range: 10-24 eGFR If Africn Am 60 mL/min/1.73 (Normal) eGFR If NonAfricn Am 52 mL/min/1.73 (Abnormal) Creatinine 1.31 mg/dL (Abnormal) Range: 0.76-1.27 BUN 17 mg/dL (Normal) Range: 8-27 Glucose 99 mg/dL (Normal) Range: 65-99 13-Hhe-481510:14 LIPID PANEL ([id number]) Comments: PATIENT WAS FASTINGPERFORMED BY: [employer]6370 [facility] [id number] LDL/HDL Ratio 2.1 {ratio} (Normal) Range: 0.0-3.6 Comments: LDL/HDL Ratio Men Women 1/2 Avg.Risk 1.0 1.5 Av g.Risk 3.6 3.2 2X Avg.Risk 6.2 5.0 3X Avg.Risk 8.0 6.1 LDL Cholesterol Calc 73 mg/dL (Normal) Range: 0-99 VLDL Cholesterol El 13 mg/dL (Normal) Range: 5-40 HDL Cholesterol 35 mg/dL (Abnormal) Triglycerides 67 mg/dL (Normal) Range: 0-149 Cholesterol, Total 121 mg/dL (Normal) Range: 100-199 99-Sug-[id number]:16 Metabolic Panel, Comprehensive Comments: PATIENT NOT FASTINGPERFORMED BY: [employer]70 [facility] [id number] ([id number]) ALT (SGPT) 18 [iU]/L (Normal) Range: 0-44 AST (SGOT) 26 [iU]/L (Normal) Range: 0-40 Alkaline Phosphatase 70 [iU]/L (Normal) Range: 39-117 Bilirubin, Total 0.4 mg/dL (Normal) Range: 0.0-1.2 A/G Ratio 1.3 (Normal) Range: 1.2-2.2 Globulin, Total 3.1 g/dL (Normal) Range: 1.5-4.5 Albumin 4.0 g/dL (Normal) Range: 3.5-4.8 Protein, Total 7.1 g/dL (Normal) Range: 6.0-8.5 Calcium 9.2 mg/dL (Normal) Range: 8.6-10.2 Carbon Dioxide, Total 26 mmol/L (Normal) Range: 18-29 Chloride 101 mmol/L (Normal) Range: 96-106 Potassium 4.8 mmol/L (Normal) Range: 3.5-5.2 Sodium 141 mmol/L (Normal) Range: 134-144 BUN/Creatinine Ratio 12 (Normal) Range: 10-24 eGFR If Africn Am 65 mL/min/1.73 (Normal) eGFR If NonAfricn Am 56 mL/min/1.73 (Abnormal) Creatinine 1.23 mg/dL (Normal) Range: 0.76-1.27 BUN 15 mg/dL (Normal) Range: 8-27 Glucose 111 mg/dL (Abnormal) Range: 65-99 41-Kzm-[id number]:16 MICROALBUMIN: CREATININE RATIO Comments: PATIENT NOT FASTINGPERFORMED BY: [facility] [id number] ([id number]) AND ([id number]) Alb/Creat Ratio 4.1 {mg/g_creat} (Normal) Range: 0.0-30.0 Albumin, Urine 4.1 ug/mL (Normal) Creatinine, Urine 100.9 mg/dL (Normal) [id number]:16 URINALYSIS ([id number]) Comments: PATIENT NOT FASTINGPERFORMED BY: [facility] [id number] Microscopic Examination See below: (Normal) Comments: Microscopic was indicated and was performed. Nitrite, Urine Negative (Normal) Urobilinogen,Semi-Qn 0.2 mg/dL (Normal) Range: 0.2-1.0 Bilirubin Negative (Normal) Occult Blood Trace (Abnormal) Ketones Negative (Normal) Glucose Negative (Normal) Protein Negative (Normal) WBC Esterase Negative (Normal) Appearance Clear (Normal) Urine-Color Yellow (Normal) pH 6.5 (Normal) Range: 5.0-7.5 Specific Pioneer 1.017 (Normal) Range: 1.005-1.030 22-Haj-981110:16 TSH (THYROID STIMULATING Comments: PATIENT NOT FASTINGPERFORMED BY: [facility] [id number] HORMONE) ([id number]) TSH 5.190 {uIU/mL} (Abnormal) Range: 0.450-4.500 58-Nrm-842037:16 HGB A1C (15312) Comments: PATIENT NOT FASTINGPERFORMED BY: FunambolMorristown Medical CenterXypwvk9754 [facility] [id number] Hemoglobin A1c 5.8 % (Abnormal) Range: 4.8-5.6 Comments: . Pre-diabetes: 5.7 - 6.4 Diabetes: >6.4 Glycemic control for adults with diabetes: <7.0 [id number] Microscopic Examination Comments: PATIENT NOT FASTINGPERFORMED BY: [facility] MarketMakerS[facility]6370 [facility] [id number] Bacteria Few (Normal) Mucus Threads Present (Normal) Epithelial Cells (non renal) 0-10 {/hpf} (Normal) Range: 0 - 10 RBC 3-10 {/hpf} (Abnormal) Range: 0 - 2 WBC 0-5 {/hpf} (Normal) Range: 0 - 5 [id number] Metabolic Panel, Comprehensive Comments: Mar 2017; PATIENT WAS FASTINGPERFORMED BY: [employer] Qbhbwd8447 [facility] [id number] ([id number]) ALT (SGPT) 13 [iU]/L (Normal) Range: 0-44 AST (SGOT) 20 [iU]/L (Normal) Range: 0-40 Alkaline Phosphatase, S 64 [iU]/L (Normal) Range: 39-117 Bilirubin, Total 0.4 mg/dL (Normal) Range: 0.0-1.2 A/G Ratio 1.2 (Normal) Range: 1.2-2.2 Globulin, Total 3.0 g/dL (Normal) Range: 1.5-4.5 Albumin, Serum 3.6 g/dL (Normal) Range: 3.5-4.8 Protein, Total, Serum 6.6 g/dL (Normal) Range: 6.0-8.5 Calcium, Serum 8.8 mg/dL (Normal) Range: 8.6-10.2 Carbon Dioxide, Total 27 mmol/L (Normal) Range: 18-29 Chloride, Serum 103 mmol/L (Normal) Range: 96-106 Potassium, Serum 4.5 mmol/L (Normal) Range: 3.5-5.2 Sodium, Serum 144 mmol/L (Normal) Range: 134-144 BUN/Creatinine Ratio 16 (Normal) Range: 10-24 eGFR If Africn Am 69 mL/min/1.73 (Normal) eGFR If NonAfricn Am 60 mL/min/1.73 (Normal) Creatinine, Serum 1.16 mg/dL (Normal) Range: 0.76-1.27 BUN 18 mg/dL (Normal) Range: 8-27 Glucose, Serum 90 mg/dL (Normal) Range: 65-99 :48 Blood Glucose , Office ([id number]) Comments: 5.8 Blood Glucose , Office 93 (Normal) :48 HgA1C , Office (36507) HgA1C , Office 5.8 % (Normal) Range: 4.6 - 7.1 :41 CBC, Platelets & Auto Diff Comments: PATIENT WAS FASTINGPERFORMED BY: [facility] Cubdjs8826 [facility] [id number] ([id number]) Immature Grans (Abs) 0.0 {x10E3/uL} (Normal) Range: 0.0-0.1 Immature Granulocytes 0 % (Normal) Baso (Absolute) 0.0 {x10E3/uL} (Normal) Range: 0.0-0.2 Eos (Absolute) 0.3 {x10E3/uL} (Normal) Range: 0.0-0.4 Monocytes(Absolute) 0.6 {x10E3/uL} (Normal) Range: 0.1-0.9 Lymphs (Absolute) 1.3 {x10E3/uL} (Normal) Range: 0.7-3.1 Neutrophils (Absolute) 4.7 {x10E3/uL} (Normal) Range: 1.4-7.0 Basos 1 % (Normal) Eos 5 % (Normal) Monocytes 9 % (Normal) Lymphs 19 % (Normal) Neutrophils 66 % (Normal) Platelets 170 {x10E3/uL} (Normal) Range: 150-379 RDW 14.7 % (Normal) Range: 12.3-15.4 MCHC 32.2 g/dL (Normal) Range: 31.5-35.7 MCH 29.1 pg (Normal) Range: 26.6-33.0 MCV 90 fL (Normal) Range: 79-97 Hematocrit 43.5 % (Normal) Range: 37.5-51.0 Hemoglobin 14.0 g/dL (Normal) Range: 12.6-17.7 RBC 4.81 {x10E6/uL} (Normal) Range: 4.14-5.80 WBC 7.0 {x10E3/uL} (Normal) Range: 3.4-10.8 91-[id number]:41 MICROALBUMIN: CREATININE RATIO Comments: PATIENT WAS FASTINGPERFORMED BY: [employer]70 [facility] [id number] ([id number]) AND ([id number]) Microalb/Creat Ratio 18.5 {mg/g_creat} (Normal) Range: 0.0-30.0 Microalbumin, Urine 40.1 ug/mL (Normal) Creatinine, Urine 216.4 mg/dL (Normal) :41 Metabolic Panel, Comprehensive Comments: PATIENT WAS FASTINGPERFORMED BY: [employer]70 [employer] [facility] [id number] ([id number]) ALT (SGPT) 9 [iU]/L (Normal) Range: 0-44 AST (SGOT) 18 [iU]/L (Normal) Range: 0-40 Alkaline Phosphatase, S 58 [iU]/L (Normal) Range: 39-117 Bilirubin, Total 0.6 mg/dL (Normal) Range: 0.0-1.2 A/G Ratio 1.3 (Normal) Range: 1.2-2.2 Globulin, Total 3.1 g/dL (Normal) Range: 1.5-4.5 Albumin, Serum 4.0 g/dL (Normal) Range: 3.5-4.8 Protein, Total, Serum 7.1 g/dL (Normal) Range: 6.0-8.5 Calcium, Serum 9.3 mg/dL (Normal) Range: 8.6-10.2 Carbon Dioxide, Total 23 mmol/L (Normal) Range: 18-29 Chloride, Serum 102 mmol/L (Normal) Range: 96-106 Potassium, Serum 5.2 mmol/L (Normal) Range: 3.5-5.2 Sodium, Serum 142 mmol/L (Normal) Range: 134-144 BUN/Creatinine Ratio 14 (Normal) Range: 10-24 eGFR If Africn Am 57 mL/min/1.73 (Abnormal) eGFR If NonAfricn Am 49 mL/min/1.73 (Abnormal) Creatinine, Serum 1.37 mg/dL (Abnormal) Range: 0.76-1.27 BUN 19 mg/dL (Normal) Range: 8-27 Glucose, Serum 76 mg/dL (Normal) Range: 65-99 [id number]-Wfd-[id number]:41 LIPID PANEL (86007) Comments: PATIENT WAS FASTINGPERFORMED BY: LabCoMorristown Medical CenterKrbfbw4081 [facility] [id number] LDL/HDL Ratio 3.3 {ratio_units} (Normal) Range: 0.0-3.6 Comments: LDL/HDL Ratio Men Women 1/2 Avg.Risk 1.0 1.5 Av g.Risk 3.6 3.2 2X Avg.Risk 6.2 5.0 3X Avg.Risk 8.0 6.1 LDL Cholesterol Calc 128 mg/dL (Abnormal) Range: 0-99 VLDL Cholesterol El 16 mg/dL (Normal) Range: 5-40 HDL Cholesterol 39 mg/dL (Abnormal) Triglycerides 78 mg/dL (Normal) Range: 0-149 Cholesterol, Total 183 mg/dL (Normal) Range: 100-199 :23 HgA1C , Office ([id number]) Comments: 5.8 HgA1C , Office 5.8 % (Normal) Range: 4.6 - 7.1 :43 Urinalysis, Office (01560) UA - LEUKOCYTE ESTERASE Negative (Normal) UA - NITRITE Negative (Normal) URINE UROBILINGN STEPH TIMED Normal mg/dL (Normal) UA - PROTEIN 30 mg/dL (Normal) UA - PH 6 (Abnormal) UA - BLOOD Hemolyzed Moderate (Normal) UA - SPECIFIC GRAVITY 1.025 (Normal) UA - KETONES Negative mg/dL (Normal) UA - BILIRUBIN Small (Normal) UA - GLUCOSE Negative (Normal) :23 Blood Glucose , Office (92355) Blood Glucose , Office 89 (Normal) :24 HgA1C , Office (71598) HgA1C , Office 5.9 % (Normal) Range: 4.6 - 7.1 :24 Blood Glucose , Office (07009) Blood Glucose , Office 109 (Normal) :49 Bedside Glucose Comments: [facility] [id number] [place] [address] BEDSIDE GLU 103 mg/dL (Normal) Range: 70-110 Comments: No Action RequiredMANAGEMENT OF PATIENT CARE PER NURSING PROTOCOL :15 Basic Metabolic Profile (BMP) Comments: 'TROP' Serial specimen #1, #2, #3, or #4: 1WC[facility] [id number] [place], [address] GAP 6 (Normal) Range: 5-15 CO2 30.0 mmol/L (Normal) Range: 21.0-32.0 CL 106 mmol/L (Normal) Range: 98-107 K 3.8 mmol/L (Normal) Range: 3.5-5.1 NA 142 mmol/L (Normal) Range: 136-145 CA 8.4 mg/dL (Abnormal) Range: 8.5-10.1 BUN/CRE 13.5 {RATIO} (Normal) Range: 10-20 Estimated CRCL 46.51 ml/min (Normal) EST GFR - AA 67 mL/min (Normal) Comments: GFR Calc EST GFR 55 mL/min (Abnormal) Comments: Non- GFR Calc CREAT,SERUM 1.33 mg/dL (Abnormal) Range: 0.70-1.30 Comments: The validity of the calculated GFR AND GFRAA in patients over70 years has not been determined. Clinical correlation isessential. BUN 18 mg/dL (Normal) Range: 7-18 GLU 99 mg/dL (Normal) Range: 70-110 :15 CBC W/Diff, Automated Comments: [facility] [id number] [place], [address] Absolute Lymph 1.51 {X10_3/ul} (Normal) Range: 0.83-4.51 Absolute Neut 3.7 {X10_3/uL} (Normal) Range: 2.0-7.7 IM GRAN % 0.200 % (Normal) Range: 0.0-0.9 Comments: IG% - Immature Granulocytes (promyelocytes, myelocytes andmetamyelocytes) > 1% indicates that a LEFT SHIFT is Present. BASO% 0.6 % (Normal) Range: 0-1 EO% 4.8 % (Normal) Range: 0-5 MONO% 10.2 % (Abnormal) Range: 0-10 LY% 24.4 % (Normal) Range: 19-41 NEUT% 59.8 % (Normal) Range: 47-70 MPV 10.4 fL (Normal) Range: 6.2-12.0 PLT 173 K/mm3 (Normal) Range: 150-450 RDW SD 49.2 fL (Abnormal) Range: 35.1-43.9 RDW CV 14.5 % (Normal) Range: 11.6-14.6 MCHC 32.0 {g/gl} (Normal) Range: 32-36 MCH 29.4 pg (Normal) Range: 27.0-32.0 MCV 91.9 fL (Normal) Range: 80-94 HCT 44.4 % (Normal) Range: 40-54 HGB 14.2 g/dL (Normal) Range: 13.0-16.5 RBC 4.83 {M/mm3} (Normal) Range: 4.6-6.2 WBC 6.2 K/mm3 (Normal) Range: 4.4-11.0 :15 Partial Thromboplast Time Comments: [facility] [address] [place], [address] PTT 29.3 s (Normal) Range: 24.1-36.2 :15 Prothrombin Time w/INR Comments: [address] [place], [address] INR 1.1 (Normal) PROTIME 13.4 s (Normal) Range: 11.7-14.9 :15 Troponin-I Comments: 'TROP' Serial specimen #1, #2, #3, or #4: [facility] Rs[address]khcinj5674 [facility] [place], [address] TROPONIN-I < 0.02 ng/mL (Normal) Comments: TROPONIN-I EXPECTED VALUES <0.05 NEGATIVE 0.06 - 0.59 AT RISK OF SC > OR = 0.60 SUGGEST SC :32 PSA (PROSTATE SPECIFIC Comments: PATIENT WAS FASTINGPERFORMED BY: [id number] [employer] [place] [id number] ANTIGEN) (V76.44) Prostate Specific Ag, 1.8 ng/mL (Normal) Range: 0.0-4.0 Serum Comments: Wagner ECLIA methodology. .According to the [place] [employer], Serum PSA shoulddecrease and remain at undetectable levels after radicalprostatectomy. The AUA defines biochemical recurrence as an initialPSA value 0.2 ng/mL or greater followed by a subsequent confirmatoryPSA value 0.2 ng/mL or greater.Values obtained with d ifferent assay methods or kits cannot be usedinterchangeably. Results cannot be interpreted as absolute evidenceof the presence or absence of malignant disease. :32 MICROALBUMIN: CREATININE RATIO Comments: PATIENT WAS FASTINGPERFORMED BY: [id number] [employer] [place] [id number] ([id number]) AND (48656) Microalb/Creat Ratio 4.2 {mg/g_creat} (Normal) Range: 0.0-30.0 Microalbumin, Urine 9.4 ug/mL (Normal) Creatinine, Urine 223.8 mg/dL (Normal) 8-Tme-118297:32 VITAMIN B12 AND FOLATES Comments: PATIENT WAS FASTINGPERFORMED BY: [id number] [employer] [place] [id number] ([id number]) Folate (Folic Acid), Serum 8.2 ng/mL (Normal) Comments: A serum folate concentration of less than 3.1 ng/mL isconsidered to represent clinical deficiency. Vitamin B12 469 pg/mL (Normal) Range: 211-946 :32 CALCIFEDIOL (02738) Comments: PATIENT WAS FASTINGPERFORMED BY: [id number] [employer] [id number] Vitamin D, 25-Hydroxy 20.9 ng/mL (Abnormal) Range: 30.0-100.0 Comments: Vitamin D deficiency has been defined by the [place] of[place]icine and an Endocrine Society practice guideline as alevel of serum 25-OH vitamin D less than 20 ng/mL (1,2).The Endocrine Society went on to further define vitamin Dinsufficiency as a level between 21 and 29 ng/mL (2).1. IOM ([place] of Medicine). 2010. Dietary reference intakes for calcium and D. [place]: The National AcademReduxio Press.2. Juliette MF, Laura YOO, Jocelin VELEZ, et al. Evaluation, treatment, and prevention of vitamin D deficiency: an Endocrine Society clinical practice guideline. JCEM. 2010; 96(7):1911-30. :32 TSH (THYROID STIMULATING Comments: PATIENT WAS FASTINGPERFORMED BY: [employer] [place] [id number] HORMONE) (13919) TSH 3.930 {uIU/mL} (Normal) Range: 0.450-4.500 :32 LIPID PANEL (58491) Comments: PATIENT WAS FASTINGPERFORMED BY: [employer] [facility] HospitalArrowhead Automated SystemsSelect [facility] [id number] LDL/HDL Ratio 3.6 {ratio_units} (Normal) Range: 0.0-3.6 Comments: LDL/HDL Ratio Men Women 1/2 Avg.Risk 1.0 1.5 Av g.Risk 3.6 3.2 2X Avg.Risk 6.2 5.0 3X Avg.Risk 8.0 6.1 LDL Cholesterol Calc 123 mg/dL (Abnormal) Range: 0-99 VLDL Cholesterol El 22 mg/dL (Normal) Range: 5-40 HDL Cholesterol 34 mg/dL (Abnormal) Comments: According to ATP-III Guidelines, HDL-C >59 mg/dL is considered anegative risk factor for CHD. Triglycerides 112 mg/dL (Normal) Range: 0-149 Cholesterol, Total 179 mg/dL (Normal) Range: 100-199 :32 METABOLIC PANEL, COMPREHENSIVE Comments: PATIENT WAS FASTINGPERFORMED BY: [employer] [facility] [id number] ([id number]) ALT (SGPT) 32 [iU]/L (Normal) Range: 0-44 AST (SGOT) 25 [iU]/L (Normal) Range: 0-40 Alkaline Phosphatase, S 64 [iU]/L (Normal) Range: 39-117 Bilirubin, Total 0.5 mg/dL (Normal) Range: 0.0-1.2 A/G Ratio 1.2 (Normal) Range: 1.1-2.5 Globulin, Total 3.2 g/dL (Normal) Range: 1.5-4.5 Albumin, Serum 3.9 g/dL (Normal) Range: 3.5-4.8 Protein, Total, Serum 7.1 g/dL (Normal) Range: 6.0-8.5 Calcium, Serum 9.2 mg/dL (Normal) Range: 8.6-10.2 Carbon Dioxide, Total 26 mmol/L (Normal) Range: 18-29 Chloride, Serum 104 mmol/L (Normal) Range: 97-106 Potassium, Serum 4.9 mmol/L (Normal) Range: 3.5-5.2 Sodium, Serum 145 mmol/L (Abnormal) Range: 136-144 BUN/Creatinine Ratio 11 (Normal) Range: 10-22 eGFR If Africn Am 54 mL/min/1.73 (Abnormal) eGFR If NonAfricn Am 47 mL/min/1.73 (Abnormal) Creatinine, Serum 1.44 mg/dL (Abnormal) Range: 0.76-1.27 BUN 16 mg/dL (Normal) Range: 8-27 Glucose, Serum 98 mg/dL (Normal) Range: 65-99 1-Qgn-583872:32 CBC, PLATELETS & AUT DIFF Comments: PATIENT WAS FASTINGPERFORMED BY: LabCoMorristown Medical CenterCxepef7571 [facility] [id number] (84111) Immature Grans (Abs) 0.0 {x10E3/uL} (Normal) Range: 0.0-0.1 Immature Granulocytes 0 % (Normal) Baso (Absolute) 0.1 {x10E3/uL} (Normal) Range: 0.0-0.2 Eos (Absolute) 0.3 {x10E3/uL} (Normal) Range: 0.0-0.4 Monocytes(Absolute) 0.4 {x10E3/uL} (Normal) Range: 0.1-0.9 Lymphs (Absolute) 1.5 {x10E3/uL} (Normal) Range: 0.7-3.1 Neutrophils (Absolute) 3.8 {x10E3/uL} (Normal) Range: 1.4-7.0 Basos 1 % (Normal) Eos 5 % (Normal) Monocytes 7 % (Normal) Lymphs 24 % (Normal) Neutrophils 63 % (Normal) Platelets 191 {x10E3/uL} (Normal) Range: 150-379 RDW 14.3 % (Normal) Range: 12.3-15.4 MCHC 31.9 g/dL (Normal) Range: 31.5-35.7 MCH 28.5 pg (Normal) Range: 26.6-33.0 MCV 90 fL (Normal) Range: 79-97 Hematocrit 43.0 % (Normal) Range: 37.5-51.0 Hemoglobin 13.7 g/dL (Normal) Range: 12.6-17.7 RBC 4.80 {x10E6/uL} (Normal) Range: 4.14-5.80 WBC 6.1 {x10E3/uL} (Normal) Range: 3.4-10.8 :18 HgA1C , Office (69267) HgA1C , Office 6.0 % (Normal) Range: 4.6 - 7.1 :18 Blood Glucose , Office (71412) Blood Glucose , Office 89 (Normal) :53 HgA1C , Office (46680) HgA1C , Office 6.2 % (Normal) Range: 4.6 - 7.1 :10 HgA1C , Office (23157) HgA1C , Office 5.7 % (Normal) Range: 4.6 - 7.1 :40 Blood Glucose , Office (96200) Blood Glucose , Office 88 (Normal) :40 HgA1C , Office (39669) HgA1C , Office 6.3 % (Normal) Range: 4.6 - 7.1 :23 Microscopic Examination Comments: PATIENT WAS FASTINGPERFORMED BY: LabCoMorristown Medical CenterPyzsmj9691 [facility] [id number] Bacteria Few (Normal) Mucus Threads Present (Normal) Crystal Type Calcium Oxalate (Normal) Crystals Present (Abnormal) Epithelial Cells (non renal) 0-10 {/hpf} (Normal) Range: 0 - 10 RBC 3-10 {/hpf} (Abnormal) Range: 0 - 2 WBC 6-10 {/hpf} (Abnormal) Range: 0 - 5 7-Mya-824714:23 CALCIFIDIOL (65726) VIT D 25 Comments: PATIENT WAS FASTINGPERFORMED BY: [facility]6370 [facility] [id number] Vitamin D, 25-Hydroxy 42.3 ng/mL (Normal) Range: 30.0-100.0 Comments: Vitamin D deficiency has been defined by the [place] of[place]icine and an Endocrine Society practice guideline as alevel of serum 25-OH vitamin D less than 20 ng/mL (1,2).The Endocrine Society went on to further define vitamin Dinsufficiency as a level between 21 and 29 ng/mL (2).1. IOM ([place] of Medicine). 2010. Dietary reference intakes for calcium and D. [place]: The National Academies Press.2. Juliette MF, Laura [place], Jocelin VELEZ, et al. Evaluation, treatment, and prevention of vitamin D deficiency: an Endocrine Society clinical practice guideline. JCEM. 2010; 96(7):1911-30. 3-Jrl-544995:23 CBC with auto diff Comments: copy of all labs to Dr. melvin; PATIENT WAS FASTINGPERFORMED BY: [facility]6370 [facility] [id number] Information: [id number] (90953) Immature Grans (Abs) 0.0 {x10E3/uL} (Normal) Range: 0.0-0.1 Immature Granulocytes 0 % (Normal) Baso (Absolute) 0.0 {x10E3/uL} (Normal) Range: 0.0-0.2 Eos (Absolute) 0.3 {x10E3/uL} (Normal) Range: 0.0-0.4 Monocytes(Absolute) 0.6 {x10E3/uL} (Normal) Range: 0.1-0.9 Lymphs (Absolute) 1.6 {x10E3/uL} (Normal) Range: 0.7-3.1 Neutrophils (Absolute) 4.6 {x10E3/uL} (Normal) Range: 1.4-7.0 Basos 1 % (Normal) Eos 4 % (Normal) Monocytes 9 % (Normal) Lymphs 22 % (Normal) Neutrophils 64 % (Normal) Platelets 188 {x10E3/uL} (Normal) Range: 150-379 RDW 14.3 % (Normal) Range: 12.3-15.4 MCHC 32.3 g/dL (Normal) Range: 31.5-35.7 MCH 28.3 pg (Normal) Range: 26.6-33.0 MCV 88 fL (Normal) Range: 79-97 Hematocrit 43.7 % (Normal) Range: 37.5-51.0 Hemoglobin 14.1 g/dL (Normal) Range: 12.6-17.7 RBC 4.99 {x10E6/uL} (Normal) Range: 4.14-5.80 WBC 7.0 {x10E3/uL} (Normal) Range: 3.4-10.8 :23 TSH (97907) Comments: PATIENT WAS FASTINGPERFORMED BY: [employer] [facility] [id number] TSH 3.600 {uIU/mL} (Normal) Range: 0.450-4.500 :23 URINALYSIS, W/ MICRO (93309) Comments: PATIENT WAS FASTINGPERFORMED BY: eÇift6370 [facility] [id number] Microscopic Examination See below: (Normal) Comments: Microscopic was indicated and was performed. Nitrite, Urine Negative (Normal) Urobilinogen,Semi-Qn 0.2 mg/dL (Normal) Range: 0.0-1.9 Bilirubin Negative (Normal) Occult Blood Negative (Normal) Ketones Negative (Normal) Glucose Negative (Normal) Protein Negative (Normal) WBC Esterase 1+ (Abnormal) Appearance Clear (Normal) Urine-Color Yellow (Normal) pH 6.0 (Normal) Range: 5.0-7.5 Specific Pioneer 1.024 (Normal) Range: 1.005-1.030 :23 METABOLIC PANEL, COMPREHENSIVE Comments: PATIENT WAS FASTINGPERFORMED BY: [employer] [facility] [id number] (39771) ALT (SGPT) 10 [iU]/L (Normal) Range: 0-44 AST (SGOT) 14 [iU]/L (Normal) Range: 0-40 Alkaline Phosphatase, S 63 [iU]/L (Normal) Range: 39-117 Bilirubin, Total 0.6 mg/dL (Normal) Range: 0.0-1.2 A/G Ratio 1.5 (Normal) Range: 1.1-2.5 Globulin, Total 2.7 g/dL (Normal) Range: 1.5-4.5 Albumin, Serum 4.1 g/dL (Normal) Range: 3.5-4.8 Protein, Total, Serum 6.8 g/dL (Normal) Range: 6.0-8.5 Calcium, Serum 9.3 mg/dL (Normal) Range: 8.6-10.2 Carbon Dioxide, Total 25 mmol/L (Normal) Range: 18-29 Chloride, Serum 100 mmol/L (Normal) Range: 97-108 Potassium, Serum 5.0 mmol/L (Normal) Range: 3.5-5.2 Sodium, Serum 141 mmol/L (Normal) Range: 134-144 BUN/Creatinine Ratio 14 (Normal) Range: 10-22 eGFR If Africn Am 61 mL/min/1.73 (Normal) eGFR If NonAfricn Am 52 mL/min/1.73 (Abnormal) Creatinine, Serum 1.32 mg/dL (Abnormal) Range: 0.76-1.27 BUN 18 mg/dL (Normal) Range: 8-27 Glucose, Serum 98 mg/dL (Normal) Range: 65-99 5-Qxu-757540:23 LIPID PANEL (49777) Comments: PATIENT WAS FASTINGPERFORMED BY: LabCoMorristown Medical CenterMsvbpg0042 [facility] [id number] LDL/HDL Ratio 3.5 {ratio_units} (Normal) Range: 0.0-3.6 Comments: LDL/HDL Ratio Men Women 1/2 Avg.Risk 1.0 1.5 Av g.Risk 3.6 3.2 2X Avg.Risk 6.2 5.0 3X Avg.Risk 8.0 6.1 LDL Cholesterol Calc 134 mg/dL (Abnormal) Range: 0-99 VLDL Cholesterol El 18 mg/dL (Normal) Range: 5-40 HDL Cholesterol 38 mg/dL (Abnormal) Comments: According to ATP-III Guidelines, HDL-C >59 mg/dL is considered anegative risk factor for CHD. Triglycerides 90 mg/dL (Normal) Range: 0-149 Cholesterol, Total 190 mg/dL (Normal) Range: 100-199 :53 HgA1C , Office (71591) HgA1C , Office 6.4 % (Normal) Range: 4.6 - 7.1 :53 Blood Glucose , Office (46618) Blood Glucose , Office 125 (Normal) :45 Culture, Urine Comments: Test performed at:[facility] [address] [place] [address] ; ordered by kathie ROMERO See Note (Normal) Comments: Urine CultureCulture exhibits no growth. :16 Bedside Glucose Comments: Test performed at:[facility] [address] [place], [place] [address] BEDSIDE GLU 102 mg/dL (Normal) Range: 70-110 Comments: MANAGEMENT OF PATIENT CARE PER NURSING PROTOCOL :52 Basic Metabolic Profile (BMP) Comments: Test performed at:[facility] [address] [place], [place] [address] GAP 4 (Abnormal) Range: 5-15 CO2 29.0 mmol/L (Normal) Range: 21.0-32.0 CL 102 mmol/L (Normal) Range: 98-107 K 4.4 mmol/L (Normal) Range: 3.5-5.1 NA 135 mmol/L (Abnormal) Range: 136-145 CA 8.8 mg/dL (Normal) Range: 8.5-10.1 BUN/CRE 13.6 {RATIO} (Normal) Range: 10-20 Estimated CRCL 44.11 ml/min (Normal) CREAT,SERUM 1.4 mg/dL (Abnormal) Range: 0.8-1.3 BUN 19 mg/dL (Abnormal) Range: 7-18 GLU 98 mg/dL (Normal) Range: 70-110 04-Uiv-371355:52 CBC-Complete Blood Cnt No Diff Comments: Test performed at:[facility] [address] [place] [address] MPV 10.2 fL (Normal) Range: 6.2-12.0 PLT 196 K/mm3 (Normal) Range: 150-450 RDW SD 46.8 fL (Abnormal) Range: 35.1-43.9 RDW CV 14.1 % (Normal) Range: 11.6-14.6 MCHC 32.3 {g/gl} (Normal) Range: 32-36 MCH 29.9 pg (Normal) Range: 27.0-32.0 MCV 92.7 fL (Normal) Range: 80-94 HCT 40.9 % (Normal) Range: 40-54 HGB 13.2 g/dL (Normal) Range: 13.0-16.5 RBC 4.41 {M/mm3} (Abnormal) Range: 4.6-6.2 WBC 6.6 K/mm3 (Normal) Range: 4.4-11.0 :52 Hemoglobin A1c Comments: Test performed at:[facility] [address] [place] [address] 266901 HGB A1C 6.8 % (Abnormal) Range: 4.2-6.3 :23 HgA1C , Office (49090) HgA1C , Office 6.7 % (Normal) Range: 4.6 - 7.1 :23 Blood Glucose , Office (68894) Blood Glucose , Office 122 (Normal) Comments: fasting :42 Urinalysis, Office (14023) UA - LEUKOCYTE ESTERASE Negative (Normal) UA - NITRITE Negative (Normal) URINE UROBILINGN STEPH TIMED Normal mg/dL (Normal) UA - PROTEIN Negative mg/dL (Normal) UA - PH 6.0 (Normal) UA - BLOOD Negative (Normal) UA - SPECIFIC GRAVITY 1.030 (Abnormal) UA - KETONES Negative mg/dL (Normal) UA - BILIRUBIN Negative (Normal) UA - GLUCOSE Negative (Normal) :12 Urinalysis, Office (32647) UA - LEUKOCYTE ESTERASE Negative (Normal) UA - NITRITE Negative (Normal) URINE UROBILINGN STEPH TIMED 2 mg/dL (Normal) UA - PROTEIN Negative mg/dL (Normal) UA - PH 6.0 (Normal) UA - BLOOD Negative (Normal) UA - SPECIFIC GRAVITY 1.030 (Abnormal) UA - KETONES Negative mg/dL (Normal) UA - BILIRUBIN Negative (Normal) UA - GLUCOSE Negative (Normal) :51 CALCIFEDIOL (58966) Comments: PATIENT NOT FASTINGPERFORMED BY: [employer] Tdpjkr8417 [facility] [id number] Vitamin D, 25-Hydroxy 20.3 ng/mL (Abnormal) Range: 30.0-100.0 Comments: Vitamin D deficiency has been defined by the [place] of[place]icine and an Endocrine Society practice guideline as alevel of serum 25-OH vitamin D less than 20 ng/mL (1,2).The Endocrine Society went on to further define vitamin Dinsufficiency as a level between 21 and 29 ng/mL (2).1. IOM ([place] of Medicine). 2010. Dietary reference intakes for calcium and D. [place]: The National Academies Press.2. Juliette MF, Laura YOO, Jocelin VELEZ, et al. Evaluation, treatment, and prevention of vitamin D deficiency: an Endocrine Society clinical practice guideline. JCEM. 2010; 96(7):1911-30. :51 Hemoglobin Glyclated (HGB A1C) Comments: PATIENT NOT FASTINGPERFORMED BY: [employer] Jrnzqq6284 [facility] [id number] (29341) Hemoglobin A1c 6.2 % (Abnormal) Range: 4.8-5.6 Comments: . Increased risk for diabetes: 5.7 - 6.4 Diabetes: >6.4 Glycemic control for adults with diabetes: <7.0 :51 Metabolic Panel, Comprehensive Comments: PATIENT NOT FASTINGPERFORMED BY: [employer] Ngrvld3502 [facility] [id number] (51045) ALT (SGPT) 10 [iU]/L (Normal) Range: 0-44 AST (SGOT) 16 [iU]/L (Normal) Range: 0-40 Alkaline Phosphatase, S 57 [iU]/L (Normal) Range: 39-117 Bilirubin, Total 0.5 mg/dL (Normal) Range: 0.0-1.2 A/G Ratio 1.5 (Normal) Range: 1.1-2.5 Globulin, Total 2.7 g/dL (Normal) Range: 1.5-4.5 Albumin, Serum 4.1 g/dL (Normal) Range: 3.5-4.8 Protein, Total, Serum 6.8 g/dL (Normal) Range: 6.0-8.5 Calcium, Serum 9.3 mg/dL (Normal) Range: 8.6-10.2 Carbon Dioxide, Total 25 mmol/L (Normal) Range: 18-29 Chloride, Serum 102 mmol/L (Normal) Range: 97-108 Potassium, Serum 5.1 mmol/L (Normal) Range: 3.5-5.2 Sodium, Serum 140 mmol/L (Normal) Range: 134-144 BUN/Creatinine Ratio 11 (Normal) Range: 10-22 eGFR If Africn Am 57 mL/min/1.73 (Abnormal) eGFR If NonAfricn Am 50 mL/min/1.73 (Abnormal) Creatinine, Serum 1.38 mg/dL (Abnormal) Range: 0.76-1.27 BUN 15 mg/dL (Normal) Range: 8-27 Glucose, Serum 101 mg/dL (Abnormal) Range: 65-99 :51 TSH (92440) Comments: PATIENT NOT FASTINGPERFORMED BY: FunambolMorristown Medical CenterMtnmeg9514 [facility] [id number] TSH 4.060 {uIU/mL} (Normal) Range: 0.450-4.500 :51 CBC, Platelets & Auto Diff Comments: PATIENT NOT FASTINGPERFORMED BY: FunambolMorristown Medical CenterBbhjgb0635 [facility] [id number] Information: [id number] (11359) Immature Grans (Abs) 0.0 {x10E3/uL} (Normal) Range: 0.0-0.1 Immature Granulocytes 0 % (Normal) Baso (Absolute) 0.0 {x10E3/uL} (Normal) Range: 0.0-0.2 Eos (Absolute) 0.1 {x10E3/uL} (Normal) Range: 0.0-0.4 Monocytes(Absolute) 0.5 {x10E3/uL} (Normal) Range: 0.1-0.9 Lymphs (Absolute) 1.3 {x10E3/uL} (Normal) Range: 0.7-3.1 Neutrophils (Absolute) 3.2 {x10E3/uL} (Normal) Range: 1.4-7.0 Basos 1 % (Normal) Eos 3 % (Normal) Monocytes 10 % (Normal) Lymphs 26 % (Normal) Neutrophils 60 % (Normal) Platelets 173 {x10E3/uL} (Normal) Range: 150-379 RDW 15.0 % (Normal) Range: 12.3-15.4 MCHC 32.5 g/dL (Normal) Range: 31.5-35.7 MCH 28.6 pg (Normal) Range: 26.6-33.0 MCV 88 fL (Normal) Range: 79-97 Hematocrit 43.1 % (Normal) Range: 37.5-51.0 Hemoglobin 14.0 g/dL (Normal) Range: 12.6-17.7 RBC 4.89 {x10E6/uL} (Normal) Range: 4.14-5.80 WBC 5.2 {x10E3/uL} (Normal) Range: 3.4-10.8 :58 Urinalysis, Office (25658) UA - LEUKOCYTE ESTERASE Negative (Normal) UA - NITRITE Negative (Normal) URINE UROBILINGN STEPH TIMED Normal mg/dL (Normal) UA - PROTEIN Negative mg/dL (Normal) UA - PH 6.0 (Normal) Comments: 5.5 UA - BLOOD Negative (Normal) UA - SPECIFIC GRAVITY 1.030 (Abnormal) UA - KETONES Negative mg/dL (Normal) UA - BILIRUBIN Negative (Normal) UA - GLUCOSE Negative (Normal) 00-Rvn-717657:09 CBC MPV 11.2 fL (Normal) Range: 6.2-12.0 PLT 157 K/mm3 (Normal) Range: 150-450 RDWSD 46.5 fL (Abnormal) Range: 35.1-43.9 RDWCV 14.4 % (Normal) Range: 11.6-14.6 MCHC 32.1 {g/gl} (Normal) Range: 32-36 MCH 28.8 pg (Normal) Range: 27.0-32.0 MCV 89.5 fL (Normal) Range: 80-94 HCT 44.5 % (Normal) Range: 40-54 HGB 14.3 g/dL (Normal) Range: 13.0-16.5 RBC 4.97 {M/mm3} (Normal) Range: 4.6-6.2 WBC 5.8 K/mm3 (Normal) Range: 4.4-11.0 04-Qgp-156721:09 CMP GAP 6 (Normal) Range: 5-15 CO2 28.0 mmol/L (Normal) Range: 21.0-32.0 CL 103 mmol/L (Normal) Range: 98-107 K 4.1 mmol/L (Normal) Range: 3.5-5.1 NA 137 mmol/L (Normal) Range: 136-145 BIT 0.50 mg/dL (Normal) Range: 0.0-1.0 ALT 17 U/L (Normal) Range: 12-78 ALK 59 U/L (Normal) Range: 45-117 AST 16 U/L (Normal) Range: 15-37 CA 8.8 mg/dL (Normal) Range: 8.5-10.1 AG 1.1 {RATIO} (Normal) Range: 0.9-2.4 GLOB 3.6 g/dL (Normal) Range: 2.7-4.2 ALB 3.8 g/dL (Normal) Range: 3.4-5.0 TPROT 7.4 g/dL (Normal) Range: 6.4-8.2 BC 11.4 {RATIO} (Normal) Range: 10-20 ECRCL 46.29 ml/min (Normal) CREAT 1.4 mg/dL (Abnormal) Range: 0.8-1.3 BUN 16 mg/dL (Normal) Range: 7-18 GLU 100 mg/dL (Normal) Range: 70-110 09-Big-525659:09 LIPID VLDL 23 mg/dL (Normal) Range: 5-40 LDL 117 mg/dL (Normal) Range: 0-130 HDL 38 mg/dL (Abnormal) Comments: Reference RangeHDL <40 mg/dL Low HDL CholesterolHDL >or= 60 mg/dL High HDL Cholesterol TRIG 113 mg/dL (Normal) Range: 0-199 Comments: Serum Triglycerides Reference IntervalNormal <150 mg/dLBorderline high 150 - 199 mg/dLHigh 200 - 499 mg/ dLVery High > or = 500 mg/dL CHOL 178 mg/dL (Normal) Comments: <200 mg/dL Itthtwxhr431-277 mg/dL Borderline>240 mg/dL High Risk 63-Dnn-582072:09 MIACRE tMICROCREAT 8.3 {mg/g_CRE} (Normal) MIALB 15.5 mg/L (Normal) CREU 185.3 mg/dL (Normal) :42 HgA1C , Office (51604) HgA1C , Office 6.3 % (Normal) Range: 4.6 - 7.1 :42 Blood Glucose , Office (99201) Blood Glucose , 119 (Normal) Comments: fasting Office BGM 136 mg/dL (Abnormal) Range: 70-110 :58 Comments: Policy and Physicians Orders followedMANAGEMENT OF PATIENT CARE PER NURSING PROTOCOL :37 HgA1C , Office (95063) HgA1C , Office 6.2 % (Normal) Range: 4.6 - 7.1 :37 Blood Glucose , Office (75060) Blood Glucose , Office 107 (Normal) 09-Wkz-362124:50 T4, FREE (THYROXINE) Comments: today; PATIENT NOT FASTINGPERFORMED BY: [facility] LivingSelect [facility] [id number] BY: [employer] [id number] Information: [id number] (51479) T4,Free(Direct) 1.35 ng/dL (Normal) Range: 0.82-1.77 12-Sif-456013:50 TSH (36757) Comments: today; PATIENT NOT FASTINGPERFORMED BY: [employer]70 [facility]OPM[facility] [id number] BY: [employer] [id number] TSH 3.450 {uIU/mL} (Normal) Range: 0.450-4.500 35-Gge-173333:50 Vitamin B-12 Comments: today; PATIENT NOT FASTINGPERFORMED BY: [employer]70 [employer] ExchangeSelect Specialty [facility] [id number] BY: [place]olMichael V[place] [address] [facility] [id number] (cyanocobalamin) (31220) Vitamin B12 586 pg/mL (Normal) Range: 211-946 [id number]-Slh-[id number]:50 Methymalonic Acid, Serum Comments: today; PATIENT NOT FASTINGPERFORMED BY: Funambol Wfiygm4966 [employer] [place] [id number] BY: FunambolMichael [place] [address] [facility] [id number] ([id number]) Methylmalonic Acid, Serum 136 nmol/L (Normal) Range: 73-376 Comments: The reference range for methylmalonic acid has been set at +3sd abovethe mean for healthy blood bank donors. In the clinical assessment ofpatients with megaloblastic anemias a cutoff of +3sd provides gr eaterspecificity in the diagnosis of the vitamin deficiency states,despite the sacrifice of some sensitivity. .Effective June 13, 2013, Methylmalonic Acid, Serum reference interval will be changing to: 0 - 378 nmol/L :21 PSA (PROSTATE SPECIFIC Comments: PATIENT WAS FASTINGPERFORMED BY: [id number] [employer] [facility] ExchangeSelect [facility] [id number] ANTIGEN) (V76.44) Prostate Specific Ag, 1.6 ng/mL (Normal) Range: 0.0-4.0 Serum Comments: Wagner ECLIA methodology. .According to the [place] [employer], Serum PSA shoulddecrease and remain at undetectable levels after radicalprostatectomy. The AUA defines biochemical recurrence as an initialPSA value 0.2 ng/mL or greater followed by a subsequent confirmatoryPSA value 0.2 ng/mL or greater.Values obtained with d ifferent assay methods or kits cannot be usedinterchangeably. Results cannot be interpreted as absolute evidenceof the presence or absence of malignant disease. :21 LIPID PANEL (70376) Comments: copy to Dr. skinner; PATIENT WAS FASTINGPERFORMED BY: [email or web address] [facility] [id number] LDL/HDL Ratio 3.1 {ratio_units} (Normal) Range: 0.0-3.6 LDL Cholesterol Calc 124 mg/dL (Abnormal) Range: 0-99 HDL Cholesterol 40 mg/dL (Normal) Comments: According to ATP-III Guidelines, HDL-C >59 mg/dL is considered anegative risk factor for CHD. VLDL Cholesterol El 24 mg/dL (Normal) Range: 5-40 Cholesterol, Total 188 mg/dL (Normal) Range: 100-199 Triglycerides 118 mg/dL (Normal) Range: 0-149 :21 CALCIFEDIOL (83541) Comments: PATIENT WAS FASTINGPERFORMED BY: [facility]icosBlue [facility] [id number] Vitamin D, 25-Hydroxy 21.9 ng/mL (Abnormal) Range: 30.0-100.0 Comments: Vitamin D deficiency has been defined by the [place] of[place] and an Endocrine Society practice guideline as alevel of serum 25-OH vitamin D less than 20 ng/mL (1,2).The Endocrine Society went on to further define vitamin Dinsufficiency as a level between 21 and 29 ng/mL (2).1. IOM ([place] of [employer]). 2010. Dietary reference intakes for calcium and D. [place]: The National Academies Press.2. Juliette MF, Laura NC, Jocelin VELEZ, et al. Evaluation, treatment, and prevention of vitamin D deficiency: an Endocrine Society clinical practice guideline. JCEM. 2010; 96(7):1911-30. :21 MICROALBUMIN: CREATININE RATIO Comments: PATIENT WAS FASTINGPERFORMED BY: [employer] Pzpiae5800 [facility] [id number] (48541) AND (33491) Microalb/Creat Ratio 5.1 {mg/g_creat} (Normal) Range: 0.0-30.0 Creatinine, Urine 161.5 mg/dL (Normal) Range: 22.0-328.0 Microalbumin, Urine 8.3 ug/mL (Normal) Range: 0.0-17.0 :21 METABOLIC PANEL, COMPREHENSIVE Comments: PATIENT WAS FASTINGPERFORMED BY: [employer] Zpkakq2731 [facility] [id number] (36892) ALT (SGPT) 15 [iU]/L (Normal) Range: 0-44 AST (SGOT) 17 [iU]/L (Normal) Range: 0-40 Alkaline Phosphatase, S 62 [iU]/L (Normal) Range: 39-117 Bilirubin, Total 0.7 mg/dL (Normal) Range: 0.0-1.2 A/G Ratio 1.3 (Normal) Range: 1.1-2.5 Globulin, Total 3.0 g/dL (Normal) Range: 1.5-4.5 Albumin, Serum 4.0 g/dL (Normal) Range: 3.5-4.8 Protein, Total, Serum 7.0 g/dL (Normal) Range: 6.0-8.5 Calcium, Serum 9.2 mg/dL (Normal) Range: 8.6-10.2 Carbon Dioxide, Total 24 mmol/L (Normal) Range: 19-28 Chloride, Serum 102 mmol/L (Normal) Range: 97-108 Potassium, Serum 4.7 mmol/L (Normal) Range: 3.5-5.2 Sodium, Serum 140 mmol/L (Normal) Range: 134-144 BUN/Creatinine Ratio 13 (Normal) Range: 10-22 eGFR If Africn Am 59 mL/min/1.73 (Abnormal) eGFR If NonAfricn Am 51 mL/min/1.73 (Abnormal) Creatinine, Serum 1.36 mg/dL (Abnormal) Range: 0.76-1.27 BUN 17 mg/dL (Normal) Range: 8-27 Glucose, Serum 114 mg/dL (Abnormal) Range: 65-99 28-Apr-20139:21 CBC WITH MANUAL DIFF Comments: PATIENT WAS FASTINGPERFORMED BY: KADIE [facility]CoMor[facility]own [facility] CenterMhqlel8297 [facility] [id number] Information: [id number] (76805) Immature Grans (Abs) 0.0 {x10E3/uL} (Normal) Range: 0.0-0.1 Immature Granulocytes 0 % (Normal) Range: 0-2 Baso (Absolute) 0.0 {x10E3/uL} (Normal) Range: 0.0-0.2 Eos (Absolute) 0.1 {x10E3/uL} (Normal) Range: 0.0-0.4 Monocytes(Absolute) 0.6 {x10E3/uL} (Normal) Range: 0.1-0.9 Lymphs (Absolute) 1.8 {x10E3/uL} (Normal) Range: 0.7-3.1 Neutrophils (Absolute) 5.5 {x10E3/uL} (Normal) Range: 1.4-7.0 Basos 1 % (Normal) Range: 0-3 Eos 2 % (Normal) Range: 0-5 Monocytes 7 % (Normal) Range: 4-12 Lymphs 22 % (Normal) Range: 14-46 Neutrophils 68 % (Normal) Range: 40-74 Platelets 174 {x10E3/uL} (Normal) Range: 155-379 RDW 14.2 % (Normal) Range: 12.3-15.4 MCHC 33.7 g/dL (Normal) Range: 31.5-35.7 MCH 29.8 pg (Normal) Range: 26.6-33.0 MCV 88 fL (Normal) Range: 79-97 Hematocrit 45.7 % (Normal) Range: 37.5-51.0 Hemoglobin 15.4 g/dL (Normal) Range: 12.6-17.7 RBC 5.17 {x10E6/uL} (Normal) Range: 4.14-5.80 WBC 8.1 {x10E3/uL} (Normal) Range: 3.4-10.8 :27 Blood Glucose , Office (65517) Blood Glucose , Office 108 (Normal) :27 HgA1C , Office (27493) HgA1C , Office 6.3 % (Normal) Range: 4.6 - 7.1 11-Isx-061813:55 CALCIFEDIOL (00354) Comments: PATIENT NOT FASTINGPERFORMED BY: LabCoMorristown Medical CenterTtajgr4594 [facility] [id number] Information: [id number] Vitamin D, 25-Hydroxy 11.4 ng/mL (Abnormal) Range: 30.0-100.0 Comments: Vitamin D deficiency has been defined by the [place] of[place] and an Endocrine Society practice guideline as alevel of serum 25-OH vitamin D less than 20 ng/mL (1,2).The Endocrine Society went on to further define vitamin Dinsufficiency as a level between 21 and 29 ng/mL (2).1. IOM ([place] of [employer]). 2010. Dietary reference intakes for calcium and D. [place]: The National Academies Press.2. Juliette MF, Laura YOO, Jocelin VELEZ, et al. Evaluation, treatment, and prevention of vitamin D deficiency: an Endocrine Society clinical practice guideline. JCEM. 2010; 96(7):1911-30. :34 HgA1C , Office (54053) HgA1C , Office 6.4 % (Normal) Range: 4.6 - 7.1 :34 Blood Glucose , Office (32968) Blood Glucose , Office 96 (Normal) :40 HgA1C , Office (29500) Comments: 6.4 HgA1C , Office 6.4 % (Normal) Range: 4.6 - 7.1 :40 Blood Glucose , Office (31408) Comments: 117 Blood Glucose , Office 117 (Normal) 48-Lhp-03993:45 Urinalysis, Office (16840) UA - LEUKOCYTE ESTERASE Negative (Normal) UA - NITRITE Negative (Normal) URINE UROBILINGN STEPH TIMED Normal mg/dL (Normal) UA - PROTEIN Negative mg/dL (Normal) UA - BLOOD Negative (Normal) UA - SPECIFIC GRAVITY 1.025 (Normal) UA - KETONES Negative mg/dL (Normal) UA - BILIRUBIN Negative (Normal) UA - GLUCOSE Negative (Normal) 3-Brz-172970:10 Urinalysis, Office (77823) UA - BILIRUBIN Negative (Normal) UA - BLOOD Non Hemolyzed Moderate (Normal) UA - GLUCOSE Negative (Normal) UA - KETONES Negative mg/dL (Normal) UA - LEUKOCYTE ESTERASE Small (Normal) UA - NITRITE Positive (Normal) UA - PH 7.0 (Normal) UA - PROTEIN 30 mg/dL (Normal) UA - SPECIFIC GRAVITY 1.025 (Normal) URINE UROBILINGN STEPH TIMED 2 mg/dL (Normal) 8-Ony-619690:21 URINE RAH CULTURE (STEPH Comments: PATIENT NOT FASTINGPERFORMED BY: [facility] Aydiee8639 [facility] [id number] Information: SRC: [id number] COL COUNT) ([id number]) Antimicrobial MIHEAD (Normal) Comments: S = Susceptible; I = Intermediate; R = Resistant P = Positive; N = Negative MICS are expressed in micrograms per mL Antibiotic RSLT#1 RSLT#2 Susceptibility RSLT#3 RSLT#4Amoxicillin/Clavulanic Acid SAmpicillin RCefazolin SCefepime SCeftriaxone SCefuroxime SCephalothin ICiprofloxacin RESBL NErtapenem SGentamicin SImipenem S Levofloxacin RNitrofurantoin SPiperacillin RTetracycline STobramycin STrimethoprim/Sulfa S Result 1 Escherichia coli Comments: Greater than 100,000 colony forming units per mL (Normal) Urine Final report Culture,Comprehensive (Normal) 92-Ben-217016:36 CULTURE, SPUTUM (18989) Comments: PATIENT NOT FASTINGPERFORMED BY: [facility] Qtbjqi8181 [facility] [id number] Information: SRC:[facility] [id number] Result 1 RRF (Normal) Comments: Routine respiratory diamond Lower Respiratory Culture Final report (Normal) :39 FEMUR,2 VIEWS Radiology Report See Note (Normal) Comments: CLINICAL:Male, 70 years old. The patient presents with right leg pain. X-RAY EXAMINATION - RIGHT FEMUR TECHNIQUE:Five views of the femur. COMPARISON:None. FINDINGS:Normal visualized femur. Normal visua lized soft tissue structure. IMPRESSION:Normal x-ray examination of the femur. Dictated on 09/16/1045 by Denisse Hilton MDranscribed on 09/16/101111 by ITS IMPORTSign by Dre Hilton MD on 09/16/101112 Sign by: Cuba Hilton MD :39 KNEE,4 OR MORE VIEWS Radiology Report See Note (Normal) Comments: CLINICAL:Male, 70 years old. The patient presents with right knee pain. X-RAY EXAMINATION - RIGHT KNEE TECHNIQUE:Four views of the knee. COMPARISON:None. FINDINGS:There is mild degenerative arthrosis o f the medial femorotibialcompartment. Normal lateral femorotibial compartment. Normalpatellofemoral articulation. Normal visualized distal femur. Normal visualized proximal tibia andfibula. Normal p roximal tibiofibular articulation. There appears to be an old avulsion fracture of the tibial spine. IMPRESSION:Degenerative arthrosis. Dictated on 09/16/10944 by Everardo Hilton MDbed o n 09/16/101114 by ITS IMPORTSign by Cuba Hilton MD on 09/16/101114 Sign by: Cuba Hilton MD :39 TIBIA & FIBULA,2 VIEWS Radiology Report See Note (Normal) Comments: CLINICAL:Male, 70 years old. The patient presents with right leg pain. X-RAY EXAMINATION - RIGHT TIBIA AND FIBULA TECHNIQUE:Four views of the tibia and fibula were obtained. COMPARISON:None. FINDINGS:N ormal visualized tibia. Normal visualized fibula. There is no demonstrated soft tissue swelling. IMPRESSION:Normal x-ray examination of the tibia and fibula. Dictated on 09/16/10944 by Everardo Hilton MDbed on 09/16/101116 by ITS IMPORTSign by Cuba Hilton MD on 09/16/101117 Sign by: Cuba Hilton MD :05 HgA1C , Office (26489) HgA1C , Office 6.5 % (Normal) Range: 4.6 - 7.1 46-Xnj-69714:05 Blood Glucose , Office (76635) Blood Glucose , Office 140 (Normal) 9-Ypk-247369:15 CULTURE, SPUTUM (40298) Comments: PATIENT NOT FASTINGPERFORMED BY: [facility] [id number] [facility] [id number] Information: SRC:[facility] [id number] Result 1 MORACA (Normal) Comments: Moraxella (branhamella) catarrhalisHeavy growthBeta lactamase positive. Lower Respiratory Culture Final report (Normal) 38-Tdx-293887:30 URINE RAH CULTURE (STEPH Comments: PATIENT NOT FASTINGPERFORMED BY: [employer] [facility] [id number] Information: SRC:DINORAH [id number] COL COUNT) (35864) Antimicrobial MIHEAD (Normal) Comments: S = Susceptible; I = Intermediate; R = Resistant P = Positive; N = Negative MICS are expressed in micrograms per mL Antibiotic RSLT#1 RSLT#2 Susceptibility RSLT#3 RSLT#4Amikacin SAmoxicillin/Clavulanic Acid SAmpicillin RCefazolin SCefepime SCefoxitin SCeftriaxone SCiprofloxacin SESBL NErtapenem SGentamicin SImipenem S Levofloxacin SNitrofurantoin IPiperacillin/Tazobactam STobramycin STrimethoprim/Sulfa S Result 1 Klebsiella species Comments: 400 Colonies/mL (Normal) Urine Final report (Normal) Culture,Comprehensive 67-Lly-701038:49 Urinalysis, Office (22940) UA - BILIRUBIN Negative (Normal) UA - BLOOD Non Hemolyzed Trace (Normal) UA - GLUCOSE Small (Normal) Comments: 100 UA - KETONES Negative mg/dL (Normal) UA - LEUKOCYTE ESTERASE Negative (Normal) UA - NITRITE Negative (Normal) UA - PH 7.0 (Normal) UA - PROTEIN Trace mg/dL (Normal) UA - SPECIFIC GRAVITY 1.025 (Normal) URINE UROBILINGN STEPH TIMED Normal mg/dL (Normal) 89-Tgc-750893:48 Blood Glucose , Office (75223) Blood Glucose , Office 108 (Normal) 32-Wci-499262:48 HgA1C , Office (15140) HgA1C , Office 6.7 % (Normal) Range: 4.6 - 7.1 :02 MICROALBUMIN: CREATININE RATIO Comments: PATIENT WAS FASTINGPERFORMED BY: [employer] Losged7090 [facility] [id number] (04603) AND (95320) Microalb/Creat Ratio 5.8 {mg/g_creat} (Normal) Range: 0.0-30.0 Creatinine, Urine 190.3 mg/dL (Normal) Range: 22.0-328.0 Microalbumin, Urine 11.0 ug/mL (Normal) Range: 0.0-17.0 :02 METABOLIC PANEL, COMPREHENSIVE Comments: PATIENT WAS FASTINGPERFORMED BY: [facility] Gvelpy2313 [facility] [id number] (18150) Alkaline Phosphatase, S 55 [iU]/L (Normal) Range: 25-160 ALT (SGPT) 14 [iU]/L (Normal) Range: 0-55 AST (SGOT) 18 [iU]/L (Normal) Range: 0-40 Bilirubin, Total 0.5 mg/dL (Normal) Range: 0.0-1.2 A/G Ratio 1.5 (Normal) Range: 1.1-2.5 Albumin, Serum 4.2 g/dL (Normal) Range: 3.5-4.8 Globulin, Total 2.8 g/dL (Normal) Range: 1.5-4.5 Calcium, Serum 9.1 mg/dL (Normal) Range: 8.6-10.2 Carbon Dioxide, Total 25 mmol/L (Normal) Range: 20-32 Chloride, Serum 107 mmol/L (Normal) Range: 97-108 Protein, Total, Serum 7.0 g/dL (Normal) Range: 6.0-8.5 BUN/Creatinine Ratio 12 (Normal) Range: 10-22 Potassium, Serum 4.6 mmol/L (Normal) Range: 3.5-5.2 Sodium, Serum 143 mmol/L (Normal) Range: 135-145 eGFR AfricanAmerican >59 mL/min/1.73 Comments: Note: Persistent reduction for 3 months or more in an eGFR<60 mL/min/1.73 m2 defines CKD. Patients with eGFR values>/=60 mL/min/1.73 m2 may also have CKD if evidence of persistentproteinuria is (Normal) present. Additional information may be found [email or web address]. BUN 17 mg/dL (Normal) Range: 8-27 Creatinine, Serum 1.40 mg/dL (Abnormal) Range: 0.76-1.27 eGFR 50 mL/min/1.73 (Abnormal) Glucose, Serum 122 mg/dL (Abnormal) Range: 65-99 :02 LIPID PANEL (05389) Comments: PATIENT WAS FASTINGPERFORMED BY: LabCoMorristown Medical CenterLcwwst2910 [facility] [id number] HDL Cholesterol 40 mg/dL (Normal) Comments: According to ATP-III Guidelines, HDL-C >59 mg/dL is considered anegative risk factor for CHD. LDL Cholesterol Calc 108 mg/dL (Abnormal) Range: 0-99 LDL/HDL Ratio 2.7 {ratio_units} (Normal) Range: 0.0-3.6 VLDL Cholesterol El 22 mg/dL (Normal) Range: 5-40 Cholesterol, Total 170 mg/dL (Normal) Range: 100-199 Triglycerides 111 mg/dL (Normal) Range: 0-149 :02 CBC WITH MANUAL DIFF Comments: PATIENT WAS FASTINGPERFORMED BY: [facility]CoMorristown Medical CenterDwwxwc3075 [facility] [id number] Information: [id number] (89493) Baso (Absolute) 0.1 {x10E3/uL} (Normal) Range: 0.0-0.2 Immature Grans (Abs) 0.0 {x10E3/uL} (Normal) Range: 0.0-0.1 Immature Granulocytes 0 % (Normal) Range: 0-1 Eos (Absolute) 0.3 {x10E3/uL} (Normal) Range: 0.0-0.4 Lymphs (Absolute) 1.8 {x10E3/uL} (Normal) Range: 0.7-4.5 Monocytes(Absolute) 0.7 {x10E3/uL} (Normal) Range: 0.1-1.0 Neutrophils (Absolute) 3.3 {x10E3/uL} (Normal) Range: 1.8-7.8 Basos 1 % (Normal) Range: 0-3 Eos 4 % (Normal) Range: 0-7 Lymphs 30 % (Normal) Range: 14-46 Monocytes 11 % (Normal) Range: 4-13 Neutrophils 54 % (Normal) Range: 40-74 MCHC 32.7 g/dL (Normal) Range: 32.0-36.0 Platelets 185 {x10E3/uL} (Normal) Range: 140-415 RDW 14.1 % (Normal) Range: 11.7-15.0 MCH 30.3 pg (Normal) Range: 27.0-34.0 MCV 93 fL (Normal) Range: 80-98 Hematocrit 44.6 % (Normal) Range: 36.0-50.0 Hemoglobin 14.6 g/dL (Normal) Range: 12.5-17.0 RBC 4.82 {x10E6/uL} (Normal) Range: 4.10-5.60 WBC 6.1 {x10E3/uL} (Normal) Range: 4.0-10.5 :37 Urine Culture, Routine Comments: PATIENT NOT FASTINGPERFORMED BY: KADIE [facility] Zxyjcb7761 [facility] [id number] Information: SRC:[facility] [id number] Antimicrobial MIHEAD (Normal) Comments: S = Susceptible; I = Intermediate; R = Resistant P = Positive; N = Negative MICS are expressed in micrograms per mL Antibiotic RSLT#1 RSLT#2 Susceptibility RSLT#3 RSLT#4Amikacin SAmoxicillin/Clavulanic Acid SAmpicillin RCefazolin SCefepime SCefoxitin ICeftriaxone SCiprofloxacin RESBL NErtapenem SGentamicin SImipenem S Levofloxacin RNitrofurantoin STobramycin STrimethoprim/Sulfa S Result 1 Escherichia coli Comments: Greater than 100,000 colony forming units per mL (Normal) Urine Culture, Routine Final report (Normal) :20 Urinalysis, Office (71175) UA - BILIRUBIN Negative (Normal) UA - BLOOD Hemolyzed Small (Normal) UA - GLUCOSE Negative (Normal) UA - KETONES Negative mg/dL (Normal) UA - LEUKOCYTE ESTERASE Moderate (Normal) UA - NITRITE Positive (Normal) UA - PH 7.0 (Normal) UA - PROTEIN Trace mg/dL (Normal) UA - SPECIFIC GRAVITY 1.025 (Normal) URINE UROBILINGN STEPH TIMED 2 mg/dL (Normal) :15 HgA1C , Office (34658) HgA1C , Office 6.9 % (Normal) Range: 4.6 - 7.1 :15 Blood Glucose , Office (26390) Blood Glucose , 109 (Normal) Office Potassium, Serum 4.9 mmol/L (Normal) Comments: PERFORMED BY: [facility]6370 [facility] [id number] :56 Range: 3.5-5.2 :56 Lipase (33019) Comments: PATIENT WAS FASTINGPERFORMED BY: [facility]6370 [facility] [id number] Lipase, Serum 53 U/L (Normal) Range: 0-59 :56 Amylase (73236) Comments: PATIENT WAS FASTINGPERFORMED BY: [facility]6370 [facility] [id number] Amylase, Serum 69 U/L (Normal) Range: 31-124 :56 CBC (Auto) (31536) Comments: PATIENT WAS FASTINGPERFORMED BY: [facility]6370 [facility] [id number] Platelets 189 {x10E3/uL} (Normal) Range: 140-415 RDW 13.7 % (Normal) Range: 11.7-15.0 MCH 29.3 pg (Normal) Range: 27.0-34.0 MCHC 33.4 g/dL (Normal) Range: 32.0-36.0 MCV 88 fL (Normal) Range: 80-98 Hematocrit 45.8 % (Normal) Range: 36.0-50.0 Hemoglobin 15.3 g/dL (Normal) Range: 12.5-17.0 RBC 5.22 {x10E6/uL} (Normal) Range: 4.10-5.60 WBC 7.5 {x10E3/uL} (Normal) Range: 4.0-10.5 :56 Metabolic Panel, Comments: PATIENT WAS FASTINGPERFORMED BY: [place] 7914370 [facility] [id number] Information: [id number] DIFFICULT D RAW Comprehensive (31133) Alkaline Phosphatase, S 67 [iU]/L (Normal) Range: 25-160 ALT (SGPT) 13 [iU]/L (Normal) Range: 0-55 AST (SGOT) 16 [iU]/L (Normal) Range: 0-40 Bilirubin, Total 0.5 mg/dL (Normal) Range: 0.0-1.2 A/G Ratio 1.3 (Normal) Range: 1.1-2.5 Albumin, Serum 4.3 g/dL (Normal) Range: 3.5-4.8 Globulin, Total 3.3 g/dL (Normal) Range: 1.5-4.5 Protein, Total, Serum 7.6 g/dL (Normal) Range: 6.0-8.5 Calcium, Serum 9.6 mg/dL (Normal) Range: 8.6-10.2 Carbon Dioxide, Total 22 mmol/L (Normal) Range: 20-32 Chloride, Serum 101 mmol/L (Normal) Range: 97-108 Potassium, Serum 5.5 mmol/L (Abnormal) Range: 3.5-5.2 Comments: This serum sample was in contactwith the red cells when received.This may adversely affect serumChemistries. Sodium, Serum 137 mmol/L (Normal) Range: 135-145 BUN/Creatinine Ratio 13 (Normal) Range: 8-27 Creatinine, Serum 1.37 mg/dL (Abnormal) Range: 0.76-1.27 eGFR 51 mL/min/1.73 (Abnormal) eGFR AfricanAmerican >59 mL/min/1.73 Comments: Note: Persistent reduction for 3 months or more in an eGFR<60 mL/min/1.73 m2 defines CKD. Patients with eGFR values>/=60 mL/min/1.73 m2 may also have CKD if evidence of persistentproteinuria is (Normal) present. Additional information may be found [email or web address]. BUN 18 mg/dL (Normal) Range: 5-26 Glucose, Serum 108 mg/dL (Abnormal) Range: 65-99 03-Usu-11275:56 Lipid Panel (29252) Comments: PATIENT WAS FASTINGPERFORMED BY: [facility] Khllch7703 [facility] [id number] LDL Cholesterol Calc 124 mg/dL (Abnormal) Range: 0-99 LDL/HDL Ratio 3.3 {ratio_units} (Normal) Range: 0.0-3.6 Cholesterol, Total 178 mg/dL (Normal) Range: 100-199 HDL Cholesterol 38 mg/dL (Abnormal) Comments: According to ATP-III Guidelines, HDL-C >59 mg/dL is considered anegative risk factor for CHD. Triglycerides 78 mg/dL (Normal) Range: 0-149 VLDL Cholesterol El 16 mg/dL (Normal) Range: 5-40 :06 HgA1C , Office (89970) HgA1C , Office 5.8 % (Normal) Range: 4.6 - 7.1 :05 Blood Glucose , Office (51813) Blood Glucose , Office 108 (Normal) 51-Xfl-154819:52 URINE RAH CULTURE-STEPH COL Comments: PATIENT WAS FASTINGPERFORMED BY: [employer] [facility] Rrkvrq2456 [facility] [id number] COUNT (31943) Antimicrobial MIHEAD (Normal) Comments: S = Susceptible; I = Intermediate; R = Resistant P = Positive; N = NegativeMICS are expressed in micrograms per mLAntibiotic RSLT#1 RSLT#2 RSLT#3 RSLT#4Am oxicillin/Cl Susceptibility avulanic Acid SAmpicillin RCefepime SCeftriaxone SCefuroxime SCephalothin SCiprofloxacin RESBL NGentamicin SImipenem SLevofloxacin RNitrofurantoin SPiperacillin/Tazobactam Carmenza tracycline STobramycin STrimethoprim/Sulfa S Result 1 Escherichia coli Comments: Greater than 100,000 colony forming units per mL (Normal) Urine Final report (Normal) Culture,Comprehensive 43-Crh-815537:52 METABOLIC PANEL, COMPREHENSIVE Comments: PATIENT WAS FASTINGPERFORMED BY: [employer] [facility] Gbilns8353 [facility] [id number] (40736) Alkaline Phosphatase, S 59 [iU]/L (Normal) Range: 25-160 ALT (SGPT) 14 [iU]/L (Normal) Range: 0-55 AST (SGOT) 20 [iU]/L (Normal) Range: 0-40 A/G Ratio 1.4 (Normal) Range: 1.1-2.5 Albumin, Serum 4.1 g/dL (Normal) Range: 3.5-4.8 Bilirubin, Total 0.4 mg/dL (Normal) Range: 0.0-1.2 Globulin, Total 3.0 g/dL (Normal) Range: 1.5-4.5 Calcium, Serum 9.2 mg/dL (Normal) Range: 8.6-10.2 Carbon Dioxide, Total 25 mmol/L (Normal) Range: 20-32 Chloride, Serum 103 mmol/L (Normal) Range: 97-108 Protein, Total, Serum 7.1 g/dL (Normal) Range: 6.0-8.5 BUN/Creatinine Ratio 12 (Normal) Range: 8-27 eGFR AfricanAmerican >59 mL/min/1.73 Comments: Note: Persistent reduction for 3 months or more in an eGFR<60 mL/min/1.73 m2 defines CKD. Patients with eGFR values>/=60 mL/min/1.73 m2 may also have CKD if evidence of persistentproteinuria is (Normal) present. Additional information may be found [email or web address]. Potassium, Serum 4.8 mmol/L (Normal) Range: 3.5-5.2 Sodium, Serum 140 mmol/L (Normal) Range: 135-145 Creatinine, Serum 1.41 mg/dL (Abnormal) Range: 0.76-1.27 eGFR 50 mL/min/1.73 (Abnormal) BUN 17 mg/dL (Normal) Range: 5-26 Glucose, Serum 94 mg/dL (Normal) Range: 65-99 28-Fgo-346376:52 LIPID PANEL (17115) Comments: PATIENT WAS FASTINGPERFORMED BY: [employer] [facility] [id number] LDL/HDL Ratio 2.7 {ratio_units} (Normal) Range: 0.0-3.6 LDL Cholesterol Calc 100 mg/dL (Abnormal) Range: 0-99 VLDL Cholesterol El 12 mg/dL (Normal) Range: 5-40 Cholesterol, Total 149 mg/dL (Normal) Range: 100-199 HDL Cholesterol 37 mg/dL (Abnormal) Comments: According to ATP-III Guidelines, HDL-C >59 mg/dL is considered anegative risk factor for CHD. Triglycerides 58 mg/dL (Normal) Range: 0-149 23-Fml-725398:52 CBC WITH MANUAL DIFF Comments: PATIENT WAS FASTINGPERFORMED BY: [employer] [facility] [id number] Information: [id number] C C: ([id number]) Baso (Absolute) 0.1 {x10E3/uL} (Normal) Range: 0.0-0.2 Eos (Absolute) 0.2 {x10E3/uL} (Normal) Range: 0.0-0.4 Lymphs (Absolute) 1.5 {x10E3/uL} (Normal) Range: 0.7-4.5 Monocytes(Absolute) 0.6 {x10E3/uL} (Normal) Range: 0.1-1.0 Basos 1 % (Normal) Range: 0-3 Eos 3 % (Normal) Range: 0-7 Neutrophils (Absolute) 2.8 {x10E3/uL} (Normal) Range: 1.8-7.8 Lymphs 30 % (Normal) Range: 14-46 Monocytes 12 % (Normal) Range: 4-13 Neutrophils 54 % (Normal) Range: 40-74 Platelets 167 {x10E3/uL} (Normal) Range: 140-415 MCHC 34.0 g/dL (Normal) Range: 32.0-36.0 RDW 16.6 % (Abnormal) Range: 11.7-15.0 MCH 29.0 pg (Normal) Range: 27.0-34.0 Hematocrit 39.8 % (Normal) Range: 36.0-50.0 MCV 86 fL (Normal) Range: 80-98 Hemoglobin 13.5 g/dL (Normal) Range: 12.5-17.0 RBC 4.65 {x10E6/uL} (Normal) Range: 4.10-5.60 WBC 5.1 {x10E3/uL} (Normal) Range: 4.0-10.5 73-Rls-047245:52 PSA (Prostate Specific Comments: PATIENT WAS FASTINGPERFORMED BY: [facility] [id number] Antigen), Screening (27502) Prostate Specific Ag, 4.5 ng/mL (Abnormal) Range: 0.0-4.0 Serum Comments: Wagner ECLIA methodology..According to the [place] [employer], Serum PSA shoulddecrease and remain at undetectable levels after radicalprostatectomy. The AUA defines biochemical recurrence a s an initialPSA value 0.2 ng/mL or greater followed by a subsequent confirmatoryPSA value 0.2 ng/mL or greater.Values obtained with different assay methods or kits cannot be usedinterchangeably. Results cannot be interpreted as absolute evidenceof the presence or absence of malignant disease. :35 Urinalysis, Office (72897) UA - LEUKOCYTE ESTERASE Moderate (Normal) UA - NITRITE Positive (Normal) URINE UROBILINGN STEPH TIMED Normal mg/dL (Normal) UA - PROTEIN 30 mg/dL (Normal) UA - PH 7.0 (Normal) UA - BLOOD Hemolyzed Small (Normal) UA - SPECIFIC GRAVITY 1.020 (Normal) UA - KETONES Negative mg/dL (Normal) UA - BILIRUBIN Negative (Normal) UA - GLUCOSE Negative (Normal) :35 Blood Glucose , Office (49786) Blood Glucose , Office 101 (Normal) :35 HgA1C , Office ([id number]) HgA1C , Office 6.5 % (Normal) Range: 4.6 - 7.1 :00 GASTRIC BX P-GASB (Normal) Comments: OPERATIONEGD with biopsyPRE-OPERATIVE DIAGNOSISEpigastric pain, abdominal bloatingTISSUE SUBMITTEDBiopsy gastric body antrum, rule out gastritisMICROSCOPIC DIAGNOSISGastric antrum, biopsy:Gastritis.See Microscopic Description and Comment.AM: 08/10/09COMMENTThe results of immunohistochemistry for Helicobacter pylori will be reported separately.MICROSCOPIC DESCRIPTIONSections show collections and clus ters of plasma cells in the mucosa. These findings areconsistent with mild chronic gastritis.GROSS DESCRIPTIONReceived is one container designated gastric antrum and body biopsy. The specimenconsists of multiple irregular fragments of light gamino soft tissue that in aggregate measure1 x 0.2 x less than 0.1 cm. The specimen is totally submitted in one cassette. / AM:08/09/09 TC:3REPORT SIGNED: SOFI VERDE 08/10/09:00 IMMUNO P-IMM (Normal) Comments: REPORT SIGNED: SOFI VERDE 08/13/09:30 BEDSIDE GLU 99 mg/dL (Normal) Range: 70-110 Comments: Policy and Physicians Orders :25 BMP CL 104 mmol/L (Normal) Range: 98-107 CO2 26.0 mmol/L (Normal) Range: 21.0-32.0 GAP 7 (Normal) Range: 5-15 K 4.3 mmol/L (Normal) Range: 3.5-5.1 NA 137 mmol/L (Normal) Range: 136-145 BUN/CRE 8.6 {RATIO} (Abnormal) Range: 10-20 CA 8.2 mg/dL (Abnormal) Range: 8.5-10.1 EST GFR 53 mL/min (Abnormal) EST GFR - AA 64 mL/min (Normal) BUN 12 mg/dL (Normal) Range: 7-18 CREAT,SERUM 1.4 mg/dL (Abnormal) Range: 0.8-1.3 GLU 104 mg/dL (Normal) Range: 70-110 :25 CBC MPV 8.7 fL (Normal) Range: 6.5-12.0 HCT 37.8 % (Abnormal) Range: 40-54 HGB 12.6 g/dL (Abnormal) Range: 14.0-18.0 MCH 28.2 pg (Normal) Range: 27.0-32.0 MCHC 33.3 g/dL (Normal) Range: 32-36 MCV 84.8 fL (Normal) Range: 80-94 PLT 158 K/mm3 (Normal) Range: 150-450 RBC 4.46 {M/mm3} (Abnormal) Range: 4.6-6.2 RDW 14.2 % (Normal) Range: 11.6-14.6 WBC 4.4 K/mm3 (Normal) Range: 4.4-11.0 91-Gnp-437309:59 BEDSIDE GLU 135 mg/dL (Abnormal) Range: 70-110 Comments: Fasting Glucose result greater than or equal to 126 mg/dLsuggests DIABETES MELLITUS per A.D.A. criteria.Policy and Physicians Orders [id number] 61-Rdo-[id number]:26 BEDSIDE GLU 93 mg/dL (Normal) Range: 70-110 Comments: Policy and Physicians Orders [id number] 65-Qwz-[id number]:57 BEDSIDE GLU 101 mg/dL (Normal) Range: 70-110 Comments: No Action Required0 95-Ruf-46872:46 BEDSIDE GLU 76 mg/dL (Normal) Range: 70-110 Comments: No Action Required0 :58 BMP CA 8.2 mg/dL (Abnormal) Range: 8.5-10.1 CL 102 mmol/L (Normal) Range: 98-107 CO2 24.0 mmol/L (Normal) Range: 21.0-32.0 GAP 12 (Normal) Range: 5-15 K 4.2 mmol/L (Normal) Range: 3.5-5.1 NA 138 mmol/L (Normal) Range: 136-145 BUN/CRE 9.3 {RATIO} (Abnormal) Range: 10-20 CREAT,SERUM 1.4 mg/dL (Abnormal) Range: 0.8-1.3 EST GFR 53 mL/min (Abnormal) EST GFR - AA 64 mL/min (Normal) BUN 13 mg/dL (Normal) Range: 7-18 GLU 119 mg/dL (Abnormal) Range: 70-110 Comments: Fasting Glucose result from 110 to <126 mg/dLsuggests IMPAIRED HOMEOSTASIS per A.D.A. criteria. 28-Ydp-75974:58 CBC HCT 35.9 % (Abnormal) Range: 40-54 HGB 12.0 g/dL (Abnormal) Range: 14.0-18.0 MCH 28.2 pg (Normal) Range: 27.0-32.0 MCHC 33.4 g/dL (Normal) Range: 32-36 MCV 84.6 fL (Normal) Range: 80-94 MPV 8.6 fL (Normal) Range: 6.5-12.0 PLT 168 K/mm3 (Normal) Range: 150-450 RBC 4.25 {M/mm3} (Abnormal) Range: 4.6-6.2 RDW 14.6 % (Normal) Range: 11.6-14.6 WBC 7.3 K/mm3 (Normal) Range: 4.4-11.0 03-Ibx-[id number]:42 BEDSIDE GLU 106 mg/dL (Normal) Range: 70-110 Comments: No Action Required0 62-Iuy-070735:47 BEDSIDE GLU 119 mg/dL (Abnormal) Range: 70-110 Comments: Fasting Glucose result from 110 to <126 mg/dLsuggests IMPAIRED HOMEOSTASIS per A.D.A. criteria.No Action Required0 18-Yrs-557721:19 BEDSIDE GLU 201 mg/dL (Abnormal) Range: 70-110 Comments: Glucose result greater than or equal to 200 mg/dLsuggests DIABETES MELLITUS per A.D.A. criteria.Insulin given7 :56 BMP BUN/CRE 9.3 {RATIO} (Abnormal) Range: 10-20 CA 8.1 mg/dL (Abnormal) Range: 8.5-10.1 CL 103 mmol/L (Normal) Range: 98-107 CO2 24.0 mmol/L (Normal) Range: 21.0-32.0 EST GFR 49 mL/min (Abnormal) EST GFR - AA 59 mL/min (Abnormal) GAP 10 (Normal) Range: 5-15 K 4.1 mmol/L (Normal) Range: 3.5-5.1 NA 137 mmol/L (Normal) Range: 136-145 BUN 14 mg/dL (Normal) Range: 7-18 CREAT,SERUM 1.5 mg/dL (Abnormal) Range: 0.8-1.3 GLU 142 mg/dL (Abnormal) Range: 70-110 Comments: Fasting Glucose result greater than or equal to 126 mg/dLsuggests DIABETES MELLITUS per A.D.A. criteria. :56 CBC MPV 9.0 fL (Normal) Range: 6.5-12.0 PLT 179 K/mm3 (Normal) Range: 150-450 RDW 14.2 % (Normal) Range: 11.6-14.6 HCT 35.0 % (Abnormal) Range: 40-54 HGB 11.7 g/dL (Abnormal) Range: 14.0-18.0 MCH 28.4 pg (Normal) Range: 27.0-32.0 MCHC 33.4 g/dL (Normal) Range: 32-36 MCV 84.9 fL (Normal) Range: 80-94 RBC 4.11 {M/mm3} (Abnormal) Range: 4.6-6.2 WBC 15.4 K/mm3 (Abnormal) Range: 4.4-11.0 :51 BEDSIDE GLU 282 mg/dL (Abnormal) Range: 70-110 Comments: Glucose result greater than or equal to 200 mg/dLsuggests DIABETES MELLITUS per A.D.A. criteria.No Action Required7 :05 BEDSIDE GLU 184 mg/dL (Abnormal) Range: 70-110 Comments: Fasting Glucose result greater than or equal to 126 mg/dLsuggests DIABETES MELLITUS per A.D.A. criteria.Policy and Physicians Orders [id number] 06-Kww-[id number]:55 CULTURE, URINE URINE CULTURE See Note (Normal) Comments: Culture exhibits no growth. 88-Sby-[id number]:55 ROUTINE UA LEUK ESTERASE SeeNote (Normal) Comments: Result: NEGATIVE OCCULT BLOOD-UR SeeNote (Abnormal) Comments: Result: TRACE-LYSED NITRITE UR SeeNote (Normal) Comments: Result: NEGATIVE PROT DIPSTX SeeNote (Normal) Comments: Result: NEGATIVE UROBILI 0.2 EU/dl (Normal) Range: 0.2 - 1.0 BILIRUBIN URINE SeeNote (Normal) Comments: Result: NEGATIVE KETONE UR SeeNote mg/dL (Normal) Comments: Result: NEGATIVE pH UR 7.5 (Normal) Range: 5.0-8.0 SP.GR. DIPSTX <=1.005 (Normal) Range: 1.002-1.030 CLARITY CLEAR (Normal) COLOR YELLOW (Normal) GLUCOSE, UR 2+ (Abnormal) 23-Gol-[id number]:22 METABOLIC PANEL, COMPREHENSIVE Comments: PATIENT WAS FASTINGPERFORMED BY: [facility]CoMor[facility] CenterOnkmxq1235 [facility] [id number] ([id number]) A/G Ratio 1.3 (Normal) Range: 1.1-2.5 Alkaline Phosphatase, S 56 [iU]/L (Normal) Range: 25-160 ALT (SGPT) 12 [iU]/L (Normal) Range: 0-55 AST (SGOT) 17 [iU]/L (Normal) Range: 0-40 Bilirubin, Total 0.4 mg/dL (Normal) Range: 0.1-1.2 Albumin, Serum 4.1 g/dL (Normal) Range: 3.5-4.8 Calcium, Serum 9.1 mg/dL (Normal) Range: 8.6-10.2 Carbon Dioxide, Total 22 mmol/L (Normal) Range: 20-32 Globulin, Total 3.1 g/dL (Normal) Range: 1.5-4.5 Protein, Total, Serum 7.2 g/dL (Normal) Range: 6.0-8.5 BUN/Creatinine Ratio 15 (Normal) Range: 8-27 Chloride, Serum 104 mmol/L (Normal) Range: 97-108 eGFR AfricanAmerican >59 mL/min/1.73 Comments: Note: Persistent reduction for 3 months or more in an eGFR<60 mL/min/1.73 m2 defines CKD. Patients with eGFR values>/=60 mL/min/1.73 m2 may also have CKD if evidence of persistentproteinuria is (Normal) present. Additional information may be found [email or web address]. Potassium, Serum 4.8 mmol/L (Normal) Range: 3.5-5.2 Sodium, Serum 139 mmol/L (Normal) Range: 135-145 BUN 20 mg/dL (Normal) Range: 5-26 Creatinine, Serum 1.33 mg/dL (Abnormal) Range: 0.76-1.27 eGFR 53 mL/min/1.73 (Abnormal) Glucose, Serum 104 mg/dL (Abnormal) Range: 65-99 80-Rir-265588:22 LIPID PANEL ([id number]) Comments: PATIENT WAS FASTINGPERFORMED BY: [employer] [facility] [id number] LDL/HDL Ratio 2.9 {ratio_units} (Normal) Range: 0.0-3.6 Cholesterol, Total 171 mg/dL (Normal) Range: 100-199 HDL Cholesterol 40 mg/dL (Normal) Comments: According to ATP-III Guidelines, HDL-C >59 mg/dL is considered anegative risk factor for CHD. LDL Cholesterol Calc 117 mg/dL (Abnormal) Range: 0-99 Triglycerides 71 mg/dL (Normal) Range: 0-149 VLDL Cholesterol El 14 mg/dL (Normal) Range: 5-40 23-Ymj-[id number]:22 CBC WITH MANUAL DIFF Comments: PATIENT WAS FASTINGPERFORMED BY: [employer] [facility] [id number] Information: [id number] ([id number]) Baso (Absolute) 0.1 {x10E3/uL} (Normal) Range: 0.0-0.2 Eos (Absolute) 0.1 {x10E3/uL} (Normal) Range: 0.0-0.4 Lymphs (Absolute) 1.8 {x10E3/uL} (Normal) Range: 0.7-4.5 Monocytes(Absolute) 0.7 {x10E3/uL} (Normal) Range: 0.1-1.0 Basos 1 % (Normal) Range: 0-3 Eos 2 % (Normal) Range: 0-7 Neutrophils (Absolute) 4.6 {x10E3/uL} (Normal) Range: 1.8-7.8 Lymphs 24 % (Normal) Range: 14-46 Monocytes 10 % (Normal) Range: 4-13 Neutrophils 63 % (Normal) Range: 40-74 Platelets 189 {x10E3/uL} (Normal) Range: 140-415 MCHC 33.2 g/dL (Normal) Range: 32.0-36.0 RDW 14.3 % (Normal) Range: 11.7-15.0 Hematocrit 39.7 % (Normal) Range: 36.0-50.0 Hemoglobin 13.2 g/dL (Normal) Range: 12.5-17.0 MCH 30.1 pg (Normal) Range: 27.0-34.0 MCV 91 fL (Normal) Range: 80-98 RBC 4.38 {x10E6/uL} (Normal) Range: 4.10-5.60 WBC 7.3 {x10E3/uL} (Normal) Range: 4.0-10.5 :29 Urinalysis, Office (37009) UA - LEUKOCYTE ESTERASE Moderate (Normal) UA - NITRITE Positive (Normal) URINE UROBILINGN STEPH TIMED 2 mg/dL (Normal) UA - PROTEIN 30 mg/dL (Normal) UA - PH 6.0 (Normal) UA - BLOOD Hemolyzed Trace (Normal) UA - SPECIFIC GRAVITY 1.020 (Normal) UA - KETONES Negative mg/dL (Normal) UA - BILIRUBIN Negative (Normal) UA - GLUCOSE Negative (Normal) :29 HgA1C , Office (93030) HgA1C , Office 6.4 % (Normal) Range: 4.6 - 7.1 :29 Blood Glucose , Office (24547) Blood Glucose , Office 131 (Normal) :24 CREAT CLR 24H U Comments: DATE STARTED 11/07/08, TIME STARTED 0700DATE ENDED 11/08/08, TIME ENDED 0700 CREAT CLEARANCE 90 ml/min (Abnormal) Range: 100-200 EST GFR 46 mL/min (Abnormal) SERUM CREAT 1.6 mg/dL (Abnormal) Range: 0.8-1.3 UR COLLECT TIME 24.0 {HOURS} (Normal) UR TOTAL VOLUME 1200 mL (Normal) URINE CREAT 174.0 mg/dL (Normal) 36-Wyu-70632:24 PROU 24HR Comments: DATE STARTED 11/07/08, TIME STARTED 699DATE ENDED 11/08/08, TIME ENDED 0700 24hr UR PROTEIN 173 {MG/24HR} (Abnormal) UR COLLECT TIME 24.0 {HOURS} (Normal) UR TOTAL VOLUME 1200 mL (Normal) URINE PROTEIN 14.4 mg/dL (Abnormal) 40-Yfl-85093:24 SERUM CRE & GFR Comments: DATE STARTED 11/07/08, TIME STARTED 699DATE ENDED 11/08/08, TIME ENDED 07 CREAT,SERUM 1.6 mg/dL (Abnormal) Range: 0.8-1.3 EST GFR 46 mL/min (Abnormal) EST GFR - AA 56 mL/min (Abnormal) 8-Hio-166981:00 KIDNEY Radiology Report See Note (Normal) Comments: Exam Number: [id number] CLINICAL:68-year-old male with renal insufficiency. RENAL ULTRASOUND COMPARISON:None. Correlation is made with the CT of the abdomen and pelvis performed on 08/04/2008. TECHNIQUE :Mills scale and color Doppler ultrasound images of the kidneys were obtained. FINDINGS:The right kidney is normal in size, measuring 10.8 x 5.7 x 4.0 cm. No cortical masses are noted. There is no defi nite cortical atrophy. The cortex measures 1.3 cm. There is no hydronephrosis. There are no renal calculi. Two prominent cysts are noted. A large mid pole cyst measures 6.4 x 4.9 x 6.8 cm. A promine nt lower pole cyst measures 3.5 x 2.5 x 3.0 cm. The left kidney is normal in size, measuring 10.3 x 6.4 x 4.5 cm. There are no cortical masses. There is no definite cortical atrophy. The cortex was no t measured with calipers. As measured on the images received for interpretation, the cortex measures 1.4 cm. There is no hydronephrosis. There are no renal calculi. Two small cysts are noted in the left kidney. An upper pole cyst measures 1.3 x 1.5 x 1.2 cm. A midpole cyst measures 1.4 x 1.1 x 1.1 cm. The cortex of both kidneys has a normal echotexture. The kidneys are symmetric in size. There are no perinephric collections. IMPRESSION:Bilateral renal cysts: 6.8-cm and 3.5-cm cysts in the right kidney, 1.5-cm and 1.4-cm cysts in the left kidney. Some thinning of the renal cortices is noted w ithout definite atrophy. Reported By: LUZ MARINA CARBAJAL M.D. :54 K 4.3 mmol/L (Normal) Range: 3.5-5.1 :54 MG 2.0 mg/dL (Normal) Range: 1.5-2.2 :54 PHOS 3.8 mg/dL (Normal) Range: 2.5-4.9 :54 SPE [id number] A/G RATIO 1.3 (Normal) Range: 0.7-2.0 ALBUMIN 3.9 g/dL (Normal) Range: 3.2-5.6 ALPHA-1 GLOBUL 0.1 g/dL (Normal) Range: 0.1-0.4 ALPHA-2 GLOBUL 0.7 g/dL (Normal) Range: 0.4-1.2 BETA GLOBULIN 1.1 g/dL (Normal) Range: 0.6-1.3 GAMMA GLOBULIN 1.1 g/dL (Normal) Range: 0.5-1.6 GLOBULIN, TOTAL 3.0 g/dL (Normal) Range: 2.0-4.5 INTERPRETATION Comment (Normal) Comments: The SPE pattern appears essentially unremarkable. Evidenceof monoclonal protein is not apparent.Performed At: [address] [id number] M-SPIKE SeeNote g/dL (Normal) Comments: Result: Not Observed NOTE: Comment (Normal) Comments: Protein electrophoresis scan will follow via computer,mail, or psychiatric aide delivery. PROTEIN,TOTAL 6.9 g/dL (Normal) Range: 6.0-8.5 :48 MICROALBUMIN: CREATININE RATIO Comments: PATIENT WAS FASTINGPERFORMED BY: [facility] [id number] [facility] [id number] ([id number]) AND ([id number]) Creatinine, Urine 109.3 mg/dL (Normal) Range: 22.0-328.0 Microalb/Creat Ratio 3.2 {ug/mg_creat} (Normal) Range: 0.0-30.0 Microalbumin, Urine 3.5 ug/mL (Normal) Range: 0.0-17.0 :48 METABOLIC PANEL, COMPREHENSIVE Comments: PATIENT WAS FASTINGPERFORMED BY: LabCoMorristown Medical CenterIynnao1231 [facility] [id number] ([id number]) A/G Ratio 1.4 (Normal) Range: 1.1-2.5 Albumin, Serum 4.5 g/dL (Normal) Range: 3.6-4.8 Alkaline Phosphatase, S 53 [iU]/L (Normal) Range: 25-160 ALT (SGPT) 13 [iU]/L (Normal) Range: 0-55 AST (SGOT) 16 [iU]/L (Normal) Range: 0-40 Bilirubin, Total 0.4 mg/dL (Normal) Range: 0.1-1.2 BUN 41 mg/dL (Abnormal) Range: 5-26 BUN/Creatinine Ratio 24 (Normal) Range: 8-27 Calcium, Serum 9.9 mg/dL (Normal) Range: 8.5-10.6 Carbon Dioxide, Total 23 mmol/L (Normal) Range: 20-32 Chloride, Serum 105 mmol/L (Normal) Range: 97-108 Creatinine, Serum 1.71 mg/dL (Abnormal) Range: 0.76-1.27 eGFR 40 mL/min/1.73 (Abnormal) eGFR AfricanAmerican 48 mL/min/1.73 Comments: Note: Persistent reduction for 3 months or more in an eGFR<60 mL/min/1.73 m2 defines CKD. Patients with eGFR values>/=60 mL/min/1.73 m2 may also have CKD if evidence of persistentproteinur ia is (Abnormal) present. Additional information may be found [email or web address]. Globulin, Total 3.2 g/dL (Normal) Range: 1.5-4.5 Glucose, Serum 103 mg/dL (Abnormal) Range: 65-99 Potassium, Serum 5.4 mmol/L (Abnormal) Range: 3.5-5.2 Protein, Total, Serum 7.7 g/dL (Normal) Range: 6.0-8.5 Sodium, Serum 139 mmol/L (Normal) Range: 135-145 :48 LIPID PANEL (88545) Comments: PATIENT WAS FASTINGPERFORMED BY: FunambolMorristown Medical CenterQxvqnx5230 [facility] [id number] Cholesterol, Total 179 mg/dL (Normal) Range: 100-199 Comment SPRCS (Normal) Comments: If initial LDL-cholesterol result is >100 mg/dL, assess forrisk factors. HDL Cholesterol 38 mg/dL (Abnormal) Comments: According to ATP-III Guidelines, HDL-C >59 mg/dL is considered anegative risk factor for CHD. LDL Cholesterol Calc 128 mg/dL (Abnormal) Range: 0-99 LDL/HDL Ratio 3.4 {ratio_units} (Normal) Range: 0.0-3.6 Triglycerides 67 mg/dL (Normal) Range: 0-149 VLDL Cholesterol El 13 mg/dL (Normal) Range: 5-40 :48 CBC WITH MANUAL DIFF ([id number]) Comments: copy to [employer]; PATIENT WAS FASTINGClinical Information: ADD DRAW FEE [id number] AD J0 [id number] PERFORMED BY: [employer] [id number] [facility] [id number] Baso (Absolute) 0.1 {x10E3/uL} (Normal) Range: 0.0-0.2 Eos (Absolute) 0.2 {x10E3/uL} (Normal) Range: 0.0-0.4 Basos 1 % (Normal) Range: 0-3 Eos 3 % (Normal) Range: 0-7 Hematocrit 41.5 % (Normal) Range: 36.0-50.0 Hemoglobin 13.9 g/dL (Normal) Range: 12.5-17.0 Lymphs 28 % (Normal) Range: 14-46 Lymphs (Absolute) 1.8 {x10E3/uL} (Normal) Range: 0.7-4.5 MCH 29.9 pg (Normal) Range: 27.0-34.0 MCHC 33.5 g/dL (Normal) Range: 32.0-36.0 MCV 89 fL (Normal) Range: 80-98 Monocytes 8 % (Normal) Range: 4-13 Monocytes(Absolute) 0.5 {x10E3/uL} (Normal) Range: 0.1-1.0 Neutrophils 60 % (Normal) Range: 40-74 Neutrophils (Absolute) 3.8 {x10E3/uL} (Normal) Range: 1.8-7.8 Platelets 201 {x10E3/uL} (Normal) Range: 140-415 Comments: Please note reference interval change RBC 4.65 {x10E6/uL} (Normal) Range: 4.10-5.60 RDW 15.1 % (Abnormal) Range: 11.7-15.0 WBC 6.3 {x10E3/uL} (Normal) Range: 4.0-10.5 :23 HgA1C , Office (57151) HgA1C , Office 6.2 % (Normal) Range: 4.6 - 7.1 :23 Blood Glucose , Office (11575) Blood Glucose , 120 (Normal) Office :5 H. pylori Stool Ag, Negative (Normal) Comments: Clinical Information: SRC:ST PERFORMED BY: [employer] [id number] EIA 36-Enl-743672:56 HELICOBACTER PYLORI ANTIBODY Comments: PATIENT NOT FASTINGPERFORMED BY: PhishLabsMorristown Medical CenterAmfoax8505 [facility] [id number] ([id number]) H. pylori IgG, Abs 3.2 U/mL (Abnormal) Range: 0.0-0.8 Comments: Negative <0.9 Indeterminate 0.9 - 1.0 Positive >1.0 86-Cit-656453:56 Metabolic Panel, Basic Comments: PATIENT NOT FASTINGClinical Information: ADD DRAW FEE [id number] ADD J [id number] PERFORMED BY: [employer] [id number] [facility]Saint [facility] [id number] ([id number]) BUN 14 mg/dL (Normal) Range: 5-26 BUN/Creatinine Ratio 10 (Normal) Range: 8-27 Calcium, Serum 9.1 mg/dL (Normal) Range: 8.5-10.6 Carbon Dioxide, Total 25 mmol/L (Normal) Range: 20-32 Chloride, Serum 103 mmol/L (Normal) Range: 97-108 Creatinine, Serum 1.36 mg/dL (Abnormal) Range: 0.76-1.27 Glom Filt Rate, Est 52 mL/min/1.73 (Abnormal) Glucose, Serum 108 mg/dL (Abnormal) Range: 65-99 If -Algerian >59 mL/min/1.73 Comments: Note: Persistent reduction for 3 months or more in an eGFR<60 mL/min/1.73 m2 defines CKD. Patients with eGFR values>/=60 mL/min/1.73 m2 may also have CKD if evidence of persistentproteinur ia is (Normal) present. Additional information may be found [email or web address]. Potassium, Serum 4.6 mmol/L (Normal) Range: 3.5-5.2 Sodium, Serum 139 mmol/L (Normal) Range: 135-145 :01 HgA1C , Office (28915) HgA1C , Office 6.4 % (Normal) Range: 4.6 - 7.1 :01 Blood Glucose , Office (94971) Blood Glucose , Office 101 (Normal) :22 HgA1C , Office (44627) Comments: done>Wf. HgA1C , Office 6.4 % (Normal) Range: 4.6 - 7.1 :22 Blood Glucose , Office (23065) Comments: done>Wf. Blood Glucose , Office 107 (Normal) :08 CBCD,SMEAR DIFF CELLS COUNTED 100 (Normal) EOS 3 % (Normal) Range: 0-5 HCT 41.7 % (Normal) Range: 40-54 HGB 13.9 g/dL (Abnormal) Range: 14.0-18.0 LYMPH 31 % (Normal) Range: 19-41 MCH 29.8 pg (Normal) Range: 27.0-32.0 MCHC 33.3 g/dL (Normal) Range: 32-36 MCV 89.5 fL (Normal) Range: 80-94 MONOCYTE 5 % (Normal) Range: 0-10 PLT 200 K/mm3 (Normal) Range: 150-450 PLT EST SeeNote (Normal) Comments: Result: ADEQUATE RBC 4.65 {M/mm3} (Normal) Range: 4.6-6.2 RDW 14.7 % (Abnormal) Range: 11.6-14.6 RED CELL MORPH SeeNote {NORMAL} (Normal) Comments: Result: NORM C+C SEGS 61 % (Normal) Range: 47-70 WBC 6.3 K/mm3 (Normal) Range: 4.4-11.0 :08 COMP METABOLIC A/G 1.1 {RATIO} (Normal) Range: 0.9-2.4 ALB 3.6 g/dL (Normal) Range: 3.4-5.0 ALK P 58 U/L (Normal) Range: 50-136 ALT 30 U/L (Normal) Range: 30-65 AST 18 U/L (Normal) Range: 15-37 BUN 19 mg/dL (Abnormal) Range: 7-18 BUN/CRE 15.8 {RATIO} (Normal) Range: 10-20 CA 8.7 mg/dL (Normal) Range: 8.5-10.1 CL 102 mmol/L (Normal) Range: 98-107 CO2 28.0 mmol/L (Normal) Range: 21.0-32.0 CREAT,SERUM 1.2 mg/dL (Normal) Range: 0.8-1.3 GAP 7 (Normal) Range: 5-15 GLOB 3.4 g/dL (Normal) Range: 2.7-4.2 K 4.2 mmol/L (Normal) Range: 3.5-5.1 NA 137 mmol/L (Normal) Range: 136-145 T BILI 0.43 mg/dL (Normal) Range: 0.00-1.00 T PROT 7.0 g/dL (Normal) Range: 6.4-8.2 GLU 116 mg/dL (Abnormal) Range: 70-110 Comments: Fasting Glucose result from 110 to <126 mg/dL suggests IMPAIRED HOMEOSTASIS per A.D.A. criteria. :08 LIPID CHOL 168 mg/dL (Normal) Comments: <200 mg/dL Desirable 200-240 mg/dL Borderline >240 mg/dL High Risk HDL 32 mg/dL (Abnormal) Comments: Reference Range HDL <40 mg/dL Low HDL Cholesterol HDL >or= 60 mg/dL High HDL Cholesterol LDL 120 mg/dL (Normal) Range: 0-130 TRIG 79 mg/dL (Normal) Comments: Serum Triglycerides Reference Interval Normal <150 mg/dL Borderline high 150 - 199 mg/dL High 200 - 499 mg/dL Very High > or = 500 mg/dL VLDL 16 mg/dL (Normal) Range: 5-40 :42 Blood Glucose , Office (45615) Blood Glucose , Office 103 (Normal) :42 HgA1C , Office (23257) HgA1C , Office 6.7 % (Normal) Range: 4.6 - 7.1 :04 SPINE,LUMBAR (ROUTINE) Radiology Report See Note (Normal) Comments: Exam Number: [id number] MRI OF THE LUMBAR SPINE WITHOUT CONTRAST CLINICAL INDICATIONLow back pain. Left hip pain and leg pain. SEQUENCESSagittal and axial T1 and T2 weighted fast spin echo. FINDINGSTh e spinal cord is not low lying. The conus demonstrates normalsignal characteristics. There is moderate dextroscoliosis. There are multiple low signal intensity lesions within the rightkidney on the T 1 weighted images measuring up to 6 cm in diameter. These are incompletely visualized on this examination. The upper disk levels show no disk herniation or canal stenosis. L2-3: There is a moderate bro ad based central disk protrusion withfacet arthropathy resulting in mild narrowing of the central spinalcanal. The neural foramina are patent. L3-4: Disk height and signal are well preserved. There are mildfacet degenerative changes. No disk herniation or significant canalstenosis. L4-5: There is slight loss of disk signal. There is a small broadbased central disk protrusion with mild deformit y of the centralaspect of the thecal sac. The neural foramina and central spinalcanal are patent. There are mild facet hypertrophic changes. L5-S1: Moderate to severe disk space narrowing. There is a focalright paracentral disk protrusion with associated mass effect anddeformity of the thecal sac. The neural foramina are patent. IMPRESSION1) Marked degenerative disk disease at the L5-S1 level wit h broadbased right paracentral disk protrusion.2) Small broad based central disk protrusion at the L4-5 level withmild deformity of the ventral aspect of the thecal sac.3) Moderate sized broad based dis k protrusion at the L2-3 level aswell.4) Multiple right renal lesion incompletely visualized on thisexamination but most likely representing cysts. Reported By: GEOVANNA CERDA M.D. :41 CBCD,SMEAR DIFF BASOPHIL 1 % (Normal) Range: 0-1 CELLS COUNTED 100 (Normal) EOS 4 % (Normal) Range: 0-5 HCT 41.5 % (Normal) Range: 40-54 HGB 14.3 g/dL (Normal) Range: 14.0-18.0 LYMPH 43 % (Abnormal) Range: 19-41 MCH 29.7 pg (Normal) Range: 27.0-32.0 MCHC 34.3 g/dL (Normal) Range: 32-36 MCV 86.5 fL (Normal) Range: 80-94 MONOCYTE 2 % (Normal) Range: 0-10 PLT 190 K/mm3 (Normal) Range: 150-450 PLT EST SeeNote (Normal) Comments: Result: ADEQUATE RBC 4.80 {M/mm3} (Normal) Range: 4.6-6.2 RDW 14.4 % (Normal) Range: 11.6-14.6 RED CELL MORPH SeeNote {NORMAL} (Normal) Comments: Result: NORM C+C SEGS 50 % (Normal) Range: 47-70 WBC 5.3 K/mm3 (Normal) Range: 4.4-11.0 :41 COMP METABOLIC A/G 1.1 {RATIO} (Normal) Range: 0.9-2.4 ALB 3.6 g/dL (Normal) Range: 3.4-5.0 ALK P 52 U/L (Normal) Range: 50-136 ALT 31 U/L (Normal) Range: 30-65 AST 15 U/L (Normal) Range: 15-37 BUN 18 mg/dL (Normal) Range: 7-18 BUN/CRE 15.0 {RATIO} (Normal) Range: 10-20 CA 8.3 mg/dL (Abnormal) Range: 8.5-10.1 CL 106 mmol/L (Normal) Range: 98-107 CO2 27.1 mmol/L (Normal) Range: 21.0-32.0 CREAT,SERUM 1.2 mg/dL (Normal) Range: 0.8-1.3 GAP 7 (Normal) Range: 5-15 GLOB 3.4 g/dL (Normal) Range: 2.7-4.2 GLU 86 mg/dL (Normal) Range: 70-110 K 4.2 mmol/L (Normal) Range: 3.5-5.1 NA 140 mmol/L (Normal) Range: 136-145 T BILI 0.46 mg/dL (Normal) Range: 0.00-1.00 T PROT 7.0 g/dL (Normal) Range: 6.4-8.2 :41 HGB A1C 6.6 % (Abnormal) Range: 4.0-6.3 Comments: The methodology of Hgb A1C has changed to Malik BehringDimension RXL. No significant changes in patientresults are expected. The reference range remains the same. :41 LIPID CHOL 150 mg/dL (Normal) Comments: <200 mg/dL Desirable 200-240 mg/dL Borderline >240 mg/dL High Risk HDL 32 mg/dL (Abnormal) Comments: Reference Range HDL <40 mg/dL Low HDL Cholesterol HDL >or= 60 mg/dL High HDL Cholesterol LDL 101 mg/dL (Normal) Range: 0-130 TRIG 83 mg/dL (Normal) Comments: Serum Triglycerides Reference Interval Normal <150 mg/dL Borderline high 150 - 199 mg/dL High 200 - 499 mg/dL Very High > or = 500 mg/dL VLDL 17 mg/dL (Normal) Range: 5-40 :41 MICROALB:CRE UR MALB:CREAT 6.7 {mg/g_CRE} (Normal) MICROALBUMIN,UR 10.5 mg/L (Normal) UR CREAT 156.3 mg/dL (Normal) [id number] L/S SPINE,MIN 4 VIEWS ([place]) Radiology Report See Note (Normal) Comments: Exam Number: [id number] LUMBAR SPINE WITH OBLIQUES, 5 VIEWS STATEMENTLow back pain. Patient states pain from back into left hip. COMPARISON EXAMSNone. There are 5 lumbar type vertebral bodies. Vertebral body height andalignment appears maintained. There is moderate narrowing of theL5-S1 disk space with vacuum disk phenomenon present and prominent endplate spurring shown at this level. There is mild to moderatenarrowing of the posterior L4-5 disk space. There is facet jointsclerosis bilaterally at L4-5 and L5-S1. The remainder of the diskspace heights appear grossly maintained. There is a mild pa ttern ofosteopenia. There is moderate atherosclerotic and vascularcalcification in the aorta. There are multiple pelvic calcificationsmost compatible with phleboliths. IMPRESSIONNo acute fracture or s ubluxation. Mild to moderate degenerativedisk and facet joint changes in the lower lumbar spine most pronouncedat the disk space level at L5-S1. Given history of radiculopathy,consider further evaluation with MRI. Reported By: ADRIÁN ALVARADO M.D. :18 HgA1C , Office (34210) HgA1C , Office 6.4 % (Normal) Range: 4.6 - 7.1 :18 Blood Glucose , Office (85183) Blood Glucose , Office 115 (Normal) [id number]-Bfk-[id number]:09 CBCD,SMEAR DIFF Comments: DR. MELVIN ORDERED: LIPID/LIVER CELLS COUNTED 100 (Normal) EOS 2 % (Normal) Range: 0-5 HCT 43.1 % (Normal) Range: 40-54 HGB 14.4 g/dL (Normal) Range: 14.0-18.0 LYMPH 27 % (Normal) Range: 19-41 MCH 29.0 pg (Normal) Range: 27.0-32.0 MCHC 33.5 g/dL (Normal) Range: 32-36 MCV 86.6 fL (Normal) Range: 80-94 MONOCYTE 4 % (Normal) Range: 0-10 PLT 224 K/mm3 (Normal) Range: 150-450 PLT EST SeeNote (Normal) Comments: Result: ADEQUATE RBC 4.98 {M/mm3} (Normal) Range: 4.6-6.2 RDW 14.2 % (Normal) Range: 11.6-14.6 RED CELL MORPH SeeNote {NORMAL} (Normal) Comments: Result: NORM C+C SEGS 67 % (Normal) Range: 47-70 WBC 7.0 K/mm3 (Normal) Range: 4.4-11.0 5-Fes-[id number]:09 COMP METABOLIC Comments: DR. MELVIN ORDERED: LIPID/LIVER A/G 1.0 {RATIO} (Normal) Range: 0.9-2.4 ALB 3.7 g/dL (Normal) Range: 3.4-5.0 ALK P 63 U/L (Normal) Range: 50-136 ALT 34 [iU]/L (Normal) Range: 30-65 AST 19 U/L (Normal) Range: 15-37 BUN 17 mg/dL (Normal) Range: 7-18 BUN/CRE 14.2 {RATIO} (Normal) Range: 10-20 CA 8.8 mg/dL (Normal) Range: 8.5-10.1 CL 104 mmol/L (Normal) Range: 98-107 CO2 29.0 mmol/L (Normal) Range: 21.0-32.0 Comments: Please Note Reference Interval Change CREAT,SERUM 1.2 mg/dL (Normal) Range: 0.8-1.3 GAP 7 (Normal) Range: 5-15 GLOB 3.6 g/dL (Normal) Range: 2.7-4.2 Comments: Please Note Reference Interval Change GLU 107 mg/dL (Normal) Range: 70-110 K 4.3 mmol/L (Normal) Range: 3.5-5.1 NA 140 mmol/L (Normal) Range: 136-145 T BILI 0.49 mg/dL (Normal) Range: 0.00-1.00 T PROT 7.3 g/dL (Normal) Range: 6.4-8.2 6-Ohy-013277:09 D BILI 0.14 mg/dL (Normal) Comments: DR. MELVIN ORDERED: LIPID/LIVER Range: 0.00-0.30 0-Eaw-[id number]:09 LIPID Comments: DR. MELVIN ORDERED: LIPID/LIVER CHOL 163 mg/dL (Normal) Comments: <200 mg/dL Desirable 200-240 mg/dL Borderline >240 mg/dL High Risk HDL 33 mg/dL (Abnormal) Comments: Reference Range HDL <40 mg/dL Low HDL Cholesterol HDL >or= 60 mg/dL High HDL Cholesterol LDL 105 mg/dL (Normal) Range: 0-130 TRIG 125 mg/dL (Normal) Comments: Serum Triglycerides Reference Interval Normal <150 mg/dL Borderline high 150 - 199 mg/dL High 200 - 499 mg/dL Very High > or = 500 mg/dL VLDL 25 mg/dL (Normal) Range: 5-40 [id number]-Gaw-444427:09 MICROALB:CRE UR Comments: DR. MELVIN ORDERED: LIPID/LIVER MALB:CREAT 13.3 {mg/g_CRE} (Normal) MICROALBUMIN,UR 15.4 mg/L (Normal) UR CREAT 115.5 mg/dL (Normal) :16 HgA1C , Office (80600) HgA1C , Office 6.5 % (Normal) Range: 4.6 - 7.1 :16 Blood Glucose , Office (14565) Blood Glucose , Office 119 (Normal) :01 HgA1C , Office (92334) HgA1C , Office 6.4 % (Normal) Range: 4.6 - 7.1 :01 Blood Glucose , Office (98425) Blood Glucose , Office 106 (Normal) :44 TURP P-PROS (Normal) Comments: OPERATION Cystoscopy, TUR, prostate, with dilation PRE-OPERATIVE DIAGNOSIS Outlet obstruction POST-OPERATIVE DIAGNOSIS Same TISSUE SUBMITTED Prostate tissue MICROSCOPIC DIAGNOSIS Prostate, transure thral resection: Benign nodular hyperplasia, glandular and stromal types. Chronic prostatitis. Focal granulomatous inflammation. AM: 12/31/06 GROSS DESCRIPTION Received in formalin labeled with patient name and number and designated prostate tissue are multiple irregular fragments of pink-gamino, rubbery, soft tissue that in aggregate weigh 14.4 gm and measure in aggregate 7 x 6 x 2 cm. Th e specimen is totally submitted in eight cassettes. / SJ: 12/30/06 TC:3 REPORT SIGNED: SOFI VERDE 12/31/06:50 BMP Comments: COMMENTS: PAT,OR 12/30/06 BUN 15 mg/dL (Normal) Range: 7-18 BUN/CRE 12.5 {RATIO} (Normal) Range: 10-20 CA 8.8 mg/dL (Normal) Range: 8.5-10.1 CL 103 mmol/L (Normal) Range: 98-107 CO2 27.1 mmol/L (Normal) Range: 21.0-32.0 Comments: Please Note Reference Interval Change CREAT,SERUM 1.2 mg/dL (Normal) Range: 0.8-1.3 GAP 11 (Normal) Range: 5-15 GLU 104 mg/dL (Normal) Range: 70-110 K 4.6 mmol/L (Normal) Range: 3.5-5.1 NA 141 mmol/L (Normal) Range: 136-145 :50 CBCD Comments: COMMENTS: PAT,OR 12/30/06 BASO% 0.4 % (Normal) Range: 0-1 EO% 5.5 % (Abnormal) Range: 0-5 HCT 40.8 % (Normal) Range: 40-54 HGB 13.7 g/dL (Abnormal) Range: 14.0-18.0 LY% 17.0 % (Abnormal) Range: 19-41 MCH 29.2 pg (Normal) Range: 27.0-32.0 MCHC 33.5 g/dL (Normal) Range: 32-36 MCV 87.1 fL (Normal) Range: 80-94 MONO% 9.2 % (Normal) Range: 0-10 MPV 8.5 fL (Normal) Range: 6.5-12.0 NEUT% 67.9 % (Normal) Range: 47-70 PLT 239 K/mm3 (Normal) Range: 150-450 RBC 4.68 {M/mm3} (Normal) Range: 4.6-6.2 RDW 14.7 % (Abnormal) Range: 11.6-14.6 WBC 7.5 K/mm3 (Normal) Range: 4.4-11.0 :50 COMPLETE UA Comments: COMMENTS: DEEPA,OR 12/30/06HOLD IN OE UNTIL SPECIMEN COLLECTED? (Y/N)* N BACTERIA 0 SEEN {/hpf} (Normal) BILIRUBIN URINE SeeNote (Normal) Comments: Result: NEGATIVE CLARITY CLEAR (Normal) COLOR YELLOW (Normal) GLUCOSE, UR SeeNote (Normal) Comments: Result: NEGATIVE KETONE UR SeeNote mg/dL (Normal) Comments: Result: NEGATIVE LEUK ESTERASE SeeNote (Normal) Comments: Result: NEGATIVE MUCUS, URINE 0 SEEN {/hpf} (Normal) NITRITE UR SeeNote (Normal) Comments: Result: NEGATIVE OCCULT BLOOD-UR SeeNote (Normal) Comments: Result: NEGATIVE pH UR 7.0 (Normal) Range: 5.0-8.0 PROT DIPSTX SeeNote (Normal) Comments: Result: NEGATIVE RBC-UA 0 SEEN {/hpf} (Normal) Range: 0-5 SP.GR. DIPSTX 1.015 (Normal) Range: 1.002-1.030 SQUAM EPI SeeNote {/hpf} (Normal) Range: 0-5 Comments: Result: 0-5 SEEN UROBILI 0.2 EU/dl (Normal) Range: 0.2 - 1.0 WBC SeeNote {/hpf} (Normal) Range: 0-5 Comments: Result: 0-5 SEEN :50 CULTURE, URINE Comments: COMMENTS: PAT, OR 12/30/06HOLD IN OE UNTIL SPECIMEN COLLECTED? (Y/N)* N URINE CULTURE See Note (Normal) Comments: Culture exhibits no growth. :50 LIVER ALB 3.3 g/dL (Abnormal) Range: 3.4-5.0 ALK P 150 U/L (Abnormal) Range: 50-136 ALT 71 [iU]/L (Abnormal) Range: 30-65 AST 29 U/L (Normal) Range: 15-37 D BILI 0.13 mg/dL (Normal) Range: 0.00-0.30 T BILI 0.63 mg/dL (Normal) Range: 0.00-1.00 T PROT 7.5 g/dL (Normal) Range: 6.4-8.2 :01 LIPID CHOL 173 mg/dL (Normal) Comments: <200 mg/dL Desirable 200-240 mg/dL Borderline >240 mg/dL High Risk HDL 42 mg/dL (Normal) Comments: Reference Range HDL <40 mg/dL Low HDL Cholesterol HDL >or= 60 mg/dL High HDL Cholesterol LDL 118 mg/dL (Normal) Range: 0-130 TRIG 64 mg/dL (Normal) Comments: Serum Triglycerides Reference Interval Normal <150 mg/dL Borderline high 150 - 199 mg/dL High 200 - 499 mg/dL Very High > or = 500 mg/dL VLDL 13 mg/dL (Normal) Range: 5-40 :01 LIVER ALB 3.5 g/dL (Normal) Range: 3.4-5.0 ALK P 142 U/L (Abnormal) Range: 50-136 ALT 143 [iU]/L (Abnormal) Range: 30-65 AST 75 U/L (Abnormal) Range: 15-37 D BILI 0.35 mg/dL (Abnormal) Range: 0.00-0.30 T BILI 0.97 mg/dL (Normal) Range: 0.00-1.00 T PROT 7.6 g/dL (Normal) Range: 6.4-8.2 :26 BMP BUN 22 mg/dL (Abnormal) Range: 7-18 BUN/CRE 12.9 {RATIO} (Normal) Range: 10-20 CA 8.9 mg/dL (Normal) Range: 8.5-10.1 CL 96 mmol/L (Abnormal) Range: 98-107 CO2 27.2 mmol/L (Normal) Range: 22.0-29.0 CREAT,SERUM 1.7 mg/dL (Abnormal) Range: 0.8-1.3 GAP 10 (Normal) Range: 5-15 GLU 123 mg/dL (Abnormal) Range: 70-110 Comments: Fasting Glucose result from 110 to <126 mg/dL suggests IMPAIRED HOMEOSTASIS per A.D.A. criteria. K 4.1 mmol/L (Normal) Range: 3.5-5.1 NA 133 mmol/L (Abnormal) Range: 136-145 06-Rsw-147226:26 ROUTINE UA BILIRUBIN URINE Inconcl (Normal) Comments: Dipstick inconclusive for bilirubin.See confirmatory ICTOTEST. CLARITY TURBID (Normal) COLOR YELLOW (Normal) GLUCOSE, UR SeeNote (Normal) Comments: Result: NEGATIVE KETONE UR SeeNote mg/dL (Normal) Comments: Result: NEGATIVE LEUK ESTERASE 3+ (Abnormal) NITRITE UR SeeNote (Abnormal) Comments: Result: POSITIVE OCCULT BLOOD-UR 3+ (Abnormal) pH UR 5.5 (Normal) Range: 5.0-8.0 PROT CONF. 15 mg/dL (Abnormal) Range: 0-5 PROT DIPSTX 1+ (Abnormal) SP.GR. DIPSTX 1.020 (Normal) Range: 1.002-1.030 UROBILI 2.0 EU/dl (Abnormal) Range: 0.2 - 1.0 07-Ett-823803:02 ABDOMEN WITHOUT CONTRAST Radiology Report See Note (Normal) Comments: Exam Number: [id number] CT ABDOMEN AND PELVIS NONCONTRAST CLINICAL STATEMENTKidney stone evaluation, pain in groin. Helical noncontrast scanning through the abdomen and pelvis wasperformed. The October 16, 2003 previous study was reviewed. There was some subsegmental atelectasis at the left base that appearsto have progressed slightly since 2003 probably developing small areaof ground atelectasis. A la rge hiatal hernia is present. Below the diaphragm, liver and spleen, biliary tract and pancreas areunremarkable. There are numerous cysts on the right kidney, some ofwhich have peripheral calcificatio n in the chavarria but appears stablefrom the previous scan. There is no hydronephrosis. There is somefaint stranding and retroperitoneal fat along the distal ureters,decreased on the right compared to th e previous study and suspected raymundo chronic. There is thickening of the urinary bladder wall without adefinable mass. The prostate is enlarged up to 64 mm. transversely. No ascites or adenopathy are evident. IMPRESSION1) No evidence of ureteral calculi or obstruction on either side.There is some haziness and fat around the ureters and thickening ofurinary bladder wall. Correlation with laboratory studies issuggested regarding the possibility of cystitis or pyelitis.2) Multiple right renal cysts with areas of calcification, stablesince 2003.3) Large hiatal hernia.4) Plaque-like consolidation probably representing an area of roundatelectasis at the posterior left lung base with mid progression [id number]. Reported By: NERIS SIMON M.D. 50-Qli-[id number]:02 PELVIS WITHOUT CONTRAST Radiology Report See Note (Normal) Comments: Exam Number: [id number] CT ABDOMEN AND PELVIS NONCONTRAST CLINICAL STATEMENTKidney stone evaluation, pain in groin. Helical noncontrast scanning through the abdomen and pelvis wasperformed. The October 16, 2003 previous study was reviewed. There was some subsegmental atelectasis at the left base that appearsto have progressed slightly since 2003 probably developing small areaof ground atelectasis. A la rge hiatal hernia is present. Below the diaphragm, liver and spleen, biliary tract and pancreas areunremarkable. There are numerous cysts on the right kidney, some ofwhich have peripheral calcificatio n in the chavarria but appears stablefrom the previous scan. There is no hydronephrosis. There is somefaint stranding and retroperitoneal fat along the distal ureters,decreased on the right compared to th e previous study and suspected raymundo chronic. There is thickening of the urinary bladder wall without adefinable mass. The prostate is enlarged up to 64 mm. transversely. No ascites or adenopathy are evident. IMPRESSION1) No evidence of ureteral calculi or obstruction on either side.There is some haziness and fat around the ureters and thickening ofurinary bladder wall. Correlation with laboratory studies issuggested regarding the possibility of cystitis or pyelitis.2) Multiple right renal cysts with areas of calcification, stablesince 2003.3) Large hiatal hernia.4) Plaque-like consolidation probably representing an area of roundatelectasis at the posterior left lung base with mid progression [id number]. Reported By: NERIS SIMON M.D. 57-Gvu-927300:02 HgA1C , Office (81852) HgA1C , Office 6.6 % (Normal) Range: 4.6 - 7.1 64-Fem-231057:02 Blood Glucose , Office (52039) Blood Glucose , Office 127 (Normal) 64-Pmr-604135:00 COLON BX P-COLBX (Normal) Comments: OPERATION Colonoscopy HISTORY Family hx of CA & polyps PRE-OPERATIVE DIAGNOSIS Polyps TISSUE SUBMITTED Polyp, rectum MICROSCOPIC DIAGNOSIS Rectum, polyp, biopsy: Hyperplastic polyp. SJ: 09/25/06 GROSS DESCRIPTION Received is one container designated polyp rectum. The specimen consists of one irregular fragment of light gamino soft tissue that in aggregate measures 0.2 x 0.2 x 0.1 cm. The specimen is totally submitted in one cassette. / AM: 09/24/06 TC:1 REPORT SIGNED: TIMOTHY PAREDES 09/25/06:04 HgA1C , Office (54662) HgA1C , Office 6.8 % (Normal) Range: 4.6 - 7.1 :04 Blood Glucose , Office (24958) Blood Glucose , Office 206 (Normal) :14 HgA1C , Office (94775) HgA1C , Office 8.0 % (Abnormal) Range: 4.6 - 7.1 :14 Blood Glucose , Office (14198) Blood Glucose , Office 117 (Normal) Plan of Care Name Dates Details Instructions TIA (transient ischemic attack) : Eprescribed prescriptions (G8553) Indication: TIA (transient ischemic attack) Current nonsmoker (Renamed from Current non-smoker) : Follow up in October Indication: Current nonsmoker (Renamed from Current non-smoker) Lacunar infarction : Reviewed Lab Indication: Lacunar infarction TIA (transient ischemic attack) : Reviewed Lab Indication: TIA (transient ischemic attack) TIA (transient ischemic attack) : Eprescribed prescriptions (G8553) Indication: TIA (transient ischemic attack) Memory loss : Follow up in 3 months Indication: Memory loss Controlled diabetes mellitus with ophthalmic complication, without long-term current use of insulin : Eprescribed prescriptions (G8553) Indication: Controlled diabetes mellitus with ophthalmic complication, without long- term current use of insulin BMI 27.0-27.9,adult : Follow up in 3 months Indication: BMI 27.0-27.9,adult Controlled diabetes mellitus with ophthalmic complication, without long-term current use of insulin : Eprescribed prescriptions (G8553) Indication: Controlled diabetes mellitus with ophthalmic complication, without long- term current use of insulin Hypertension : Follow up in 3 months Indication: Hypertension Controlled diabetes mellitus with ophthalmic complication, without long-term current use of insulin : Eprescribed prescriptions (G8553) Indication: Controlled diabetes mellitus with ophthalmic complication, without long- term current use of insulin Memory loss : Eprescribed prescriptions (G8553) Indication: Memory loss GERD (gastroesophageal reflux disease) : Follow up in 10 days Indication: GERD (gastroesophageal reflux disease) Controlled diabetes mellitus with ophthalmic complication, without long-term current use of insulin : Eprescribed prescriptions (G8553) Indication: Controlled diabetes mellitus with ophthalmic complication, without long- term current use of insulin Nonsmoker : Follow up in 2 months for Gen med with [facility] Indication: Nonsmoker Laceration of left hand : Eprescribed prescriptions (G8553) Indication: Laceration of left hand Controlled diabetes mellitus with ophthalmic complication, without long-term current use of insulin : Follow up in 3 months Indication: Controlled diabetes mellitus with ophthalmic complication, without long- term current use of insulin Controlled diabetes mellitus with ophthalmic complication, without long-term current use of insulin : Eprescribed prescriptions (G8553) Indication: Controlled diabetes mellitus with ophthalmic complication, without long- term current use of insulin Controlled diabetes mellitus with ophthalmic complication, without long-term current use of insulin : Eprescribed prescriptions (G8553) Indication: Controlled diabetes mellitus with ophthalmic complication, without long- term current use of insulin Controlled diabetes mellitus with ophthalmic complication, without long-term current use of insulin : Blood Glucose Test: diabetes Indication: Controlled diabetes mellitus with ophthalmic complication, without long- term current use of insulin Controlled diabetes mellitus with ophthalmic complication, without long-term current use of insulin : Eprescribed prescriptions (G8553) Indication: Controlled diabetes mellitus with ophthalmic complication, without long- term current use of insulin Abdominal pain : Follow up - Make appt after diagnostic tests Indication: Abdominal pain Gait disturbance : Follow up in 1 week Indication: Gait disturbance Controlled diabetes mellitus with ophthalmic complication, without long-term current use of insulin : Diabetes and Exercise: Preventing Low Blood Sugar: blood sugar Indication: Controlled diabetes mellitus with ophthalmic complication, without long- term current use of insulin Controlled diabetes mellitus with ophthalmic complication, without long-term current use of insulin : Eprescribed prescriptions (G8553) Indication: Controlled diabetes mellitus with ophthalmic complication, without long- term current use of insulin Hip pain, bilateral : Follow up in 3 months Indication: Hip pain, bilateral Controlled diabetes mellitus with ophthalmic complication, without long-term current use of insulin : Follow up in 3 monthsb for Gen Med with [facility] Indication: Controlled diabetes mellitus with ophthalmic complication, without long- term current use of insulin Calcification of aorta (Renamed from Aortic calcification) : Follow up if no improvement or if symptoms worsen Indication: Calcification of aorta (Renamed from Aortic calcification) Fall : Follow up in 2 weeks with [facility] Indication: Fall Wheezing : Follow up if no improvement or if symptoms worsen Indication: Wheezing Bronchitis : *URI Treatment Indication: Bronchitis Bronchitis : *URI Symptoms Indication: Bronchitis Bronchitis : *Antibiotic Usage Education - Female Indication: Bronchitis Bronchitis : *URI Treatment Indication: Bronchitis Bronchitis : *URI Symptoms Indication: Bronchitis Bronchitis : *Antibiotic Usage Education - Female Indication: Bronchitis Actinic keratosis : Cryotherapy Indication: Actinic keratosis Actinic keratosis : Cryotherapy Indication: Actinic keratosis thumb pain : thumb Injection Indication: thumb pain Low back pain : exercises Indication: Low back pain Low back pain : FOLLOW UP IF NO IMPROVEMENT OR IF SYMPTOMS WORSEN Indication: Low back pain Low back pain : Low Back Pain Red Flags Indication: Low back pain Bronchitis : Antibiotic Usage Education - Male Indication: Bronchitis Bronchitis : URI Symptoms Indication: Bronchitis Bronchitis : Antibiotic Usage Education - Female Indication: Bronchitis Uncontrolled type II diabetes mellitus : FOLLOW UP IN 3 MONTHS Indication: Uncontrolled type II diabetes mellitus Epigastric pain : FOLLOW UP IN 4 WEEKS Indication: Epigastric pain Planned Observations CBC, Platelets & Auto Diff ([id number])Indication: Controlled diabetes mellitus with ophthalmic complication, without long-term current use of insulin On: 72-Qii-938495:15 Request PSA (PROSTATE SPECIFIC ANTIGEN) (V76.44)Indication: Urinary urgency On: :06 Request MICROALBUMIN: CREATININE RATIO ([id number]) AND ([id number])Indication: Controlled diabetes mellitus with ophthalmic complication, without long-term current use of insulin On: : Request VITAMIN B12 AND FOLATES ([id number])Indication: Controlled diabetes mellitus with ophthalmic complication, without long-term current use of insulin On: : Request CALCIFEDIOL ([id number])Indication: Controlled diabetes mellitus with ophthalmic complication, without long-term current use of insulin On: : Request LIPID PANEL ([id number])Indication: Controlled diabetes mellitus with ophthalmic complication, without long-term current use of insulin On: : Request METABOLIC PANEL, COMPREHENSIVE (40084)Indication: Controlled diabetes mellitus with ophthalmic complication, without long-term current use of insulin On: : Request CBC, PLATELETS & AUT DIFF ([id number])Indication: Controlled diabetes mellitus with ophthalmic complication, without long-term current use of insulin On: : Request CALCIFIDIOL (06231) VIT D 25Indication: Vitamin D deficiency On: 76-Tew-775485:49 Request MICROALBUMIN: CREATININE RATIO (89113) AND (73557)Indication: Controlled diabetes mellitus with ophthalmic complication, without long-term current use of insulin On: 33-Fwp-232804:48 Request METABOLIC PANEL, COMPREHENSIVE (89153)Indication: Controlled diabetes mellitus with ophthalmic complication, without long-term current use of insulin On: 13-Ckk-197191:47 Request LIPID PANEL ([id number])Indication: Controlled diabetes mellitus with ophthalmic complication, without long-term current use of insulin On: 91-Xjs-033194:47 Request CBC with auto diff ([id number])Indication: Controlled diabetes mellitus with ophthalmic complication, without long-term current use of insulin On: 09-Tqv-214005:47 Request METABOLIC PANEL, COMPREHENSIVE (85836)Indication: Controlled diabetes mellitus with ophthalmic complication, without long-term current use of insulin On: :40 Request LIPID PANEL ([id number])Indication: Controlled diabetes mellitus with ophthalmic complication, without long-term current use of insulin On: :40 Request CBC with auto diff ([id number])Indication: Controlled diabetes mellitus with ophthalmic complication, without long-term current use of insulin On: :40 Request CALCIFIDIOL (04379) VIT D 25Indication: Vitamin D deficiency On: :46 Request MICROALBUMIN: CREATININE RATIO ([id number]) AND ([id number])Indication: Controlled diabetes 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 On: :44 Request METABOLIC PANEL, COMPREHENSIVE ([id number])Indication: Controlled diabetes 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 On: :44 Request LIPID PANEL ([id number])Indication: Controlled diabetes 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 On: :44 Request MICROALBUMIN: CREATININE RATIO ([id number]) AND ([id number])Indication: Controlled diabetes 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 On: :44 Request CBC WITH MANUAL DIFF ([id number])Indication: Controlled diabetes 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 On: :44 Request CALCIFIDIOL (51185) VIT D 25Indication: Vitamin D deficiency On: :25 Request MICROALBUMIN: CREATININE RATIO (79456) AND (11473)Indication: Controlled diabetes mellitus with ophthalmic complication, without long-term current use of insulin On: :36 Request CBC (Auto) ([id number])Indication: Controlled diabetes mellitus with ophthalmic complication, without long-term current use of insulin On: :36 Request MICROALBUMIN: CREATININE RATIO ([id number]) AND (83243)Indication: Controlled diabetes mellitus with ophthalmic complication, without long-term current use of insulin On: :36 Request METABOLIC PANEL, COMPREHENSIVE (94830)Indication: Controlled diabetes mellitus with ophthalmic complication, without long-term current use of insulin On: :36 Request LIPID PANEL ([id number])Indication: Controlled diabetes mellitus with ophthalmic complication, without long-term current use of insulin On: :36 Request METABOLIC PANEL, COMPREHENSIVE (16952)Indication: Hypercholesterolemia On: :02 Request Comments: in three months (approximately) LIPID PANEL ([id number])Indication: Hypercholesterolemia On: 25-Mte-231420:02 Request Comments: in three months (approximately) CALCIFEDIOL (57089)Indication: Vitamin D deficiency On: 77-Xob-674122:02 Request Comments: in three months (approximately) RAH CULTURE-OTHER (55707)Indication: Urinary tract infection, site not specified On: :34 Request Comments: urine MICROALBUMIN: CREATININE RATIO ([id number]) AND (65926)Indication: Controlled diabetes 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 On: 10-Lgb-210879:06 Request HELICO PYLORI, STOOL, INFCT ANTIGEN ([id number])Indication: Duodenitis On: 43-Ebl-885116:18 Request METABOLIC PANEL, COMPREHENSIVE ([id number])Indication: Controlled diabetes 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 On: :25 Request MICROALBUMIN: CREATININE RATIO ([id number]) AND (63187)Indication: Controlled diabetes 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 On: :25 Request LIPID PANEL ([id number])Indication: Controlled diabetes 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 On: :25 Request CBC WITH MANUAL DIFF ([id number])Indication: Controlled diabetes 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 On: :25 Request Comments: in three months (approximately) MICROALBUMIN: CREATININE RATIO ([id number]) AND (79907)Indication: Controlled diabetes 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 On: :56 Request METABOLIC PANEL, COMPREHENSIVE ([id number])Indication: Controlled diabetes 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 On: :56 Request LIPID PANEL ([id number])Indication: Controlled diabetes 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 On: :56 Request CBC WITH MANUAL DIFF ([id number])Indication: Controlled diabetes 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 On: :55 Request Comments: copy moodispaw in three months (approximately) MICROALBUMIN: CREATININE RATIO (85083) AND ([id number])Indication: Controlled diabetes 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 On: :35 Request METABOLIC PANEL, COMPREHENSIVE ([id number])Indication: Controlled diabetes 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 On: :35 Request LIPID PANEL ([id number])Indication: Controlled diabetes 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 On: :35 Request CBC WITH MANUAL DIFF ([id number])Indication: Controlled diabetes 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 On: :35 Request Comments: copy to [facility] on all labs MICROALBUMIN: CREATININE RATIO ([id number]) AND ([id number])Indication: Controlled diabetes 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 On: :42 Request LIPID PANEL ([id number])Indication: Controlled diabetes 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 On: :42 Request METABOLIC PANEL, COMPREHENSIVE ([id number])Indication: Controlled diabetes 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 On: :42 Request CBC WITH MANUAL DIFF ([id number])Indication: Controlled diabetes 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 On: :42 Request CBC (Auto) ([id number])Indication: Uncontrolled type II diabetes mellitus On: :19 Request Lipid Panel ([id number])Indication: Uncontrolled type II diabetes mellitus On: : Request Metabolic Panel, Comprehensive ([id number])Indication: Uncontrolled type II diabetes mellitus On: :19 Request Comments: in three months (approximately) URINALYSIS ([id number])Indication: Calcium kidney stone On: :30 Request Metabolic Panel, Basic ([id number])Indication: Calcium kidney stone On: :25 Request GLUCOSE, PP/2 HOUR ([id number])Indication: Hyperglycemia On: :43 Request GLUCAGON TOLERANCE TEST 2HR ([id number])Indication: Hyperglycemia On: :33 Request Planned Encounters Medical; [facility] Physical - On: 05-Mar-2018 13:45 [facility] Daiana Andrew CNP, CNP, Mary E Planned Procedures Radiology - Lumbar SpineBy: Lorrie On: 10-Oct-2016 Intent Daiana SCHMITT CNP, Mary E US DOPPLER CAROTID BILATERAL On: 29-Dec-2014 Intent ([id number])By: Kasey Aguiar MD Ultrasound - Abdomen CompleteBy: On: 25-Apr-2014 Intent Daiana Andrew CNP, CNP, Mary E Carotid DopplerBy: Kasey Aguiar MD On: 09-Dec-2013 Intent Eprescribed prescriptions ([id number])By: On: 29-Aug-2013 Intent Kasey Aguiar MD Eprescribed prescriptions ([id number])By: On: 28-Apr-2013 Intent [employer], Lavinia L Eprescribed prescriptions ([id number])By: On: 04-Oct-2012 Intent Long [employer], Lavinia L Pulse Oximetry ([id number])By: Lorrie SCHMITT, On: 09-Apr-2011 Intent Katalina Lorrie CONTENT DIRECTOR, Katalina Aerosol Treatment ([id number])By: Lorrie On: 09-Apr-2011 Intent CONTENT DIRECTOR, Katalina Ciesjose c CONTENT DIRECTOR, Katalina PFT - CompleteBy: Kasey Aguiar MD On: 16-Sep-2010 Intent Radiology - Knee - RightBy: Stefania On: 16-Sep-2010 Intent Kasey CAMPBELL Radiology - Tib-Fib - RightBy: On: 16-Sep-2010 Intent Kasey Aguiar MD Radiology - Femur - RightBy: Stefania On: 16-Sep-2010 Intent Kasey CAMPBELL Spirometry ([id number])By: Stefania CAMPBELL, On: 16-Sep-2010 Intent Kasey Farrell EKG ([id number])By: Kasey Aguiar MD On: 16-Sep-2010 Intent Pulse Oximetry ([id number])By: Stefania CAMPBELL, On: 16-Sep-2010 Intent Kasey Farrell Aerosol Treatment ([id number])By: Lorrie On: 31-Jul-2010 Intent CONTENT DIRECTOR, Katalina Judithjose c OSKAR, Daiana Mcclain Ultrasound - RenalBy: Stefania CAMPBELL, On: 24-May-2009 Intent Kasey Farrell Spirometry ([id number])By: Stefania CAMPBELL, On: 19-Oct-2008 Intent Kasey Farrell Pulse Oximetry ([id number])By: Stefania CAMPBELL, On: 19-Oct-2008 Intent Kasey Farrell Radiology - Lumbar SpineBy: Stefania On: 04-Oct-2007 Intent Kasey CAMPBELL Toradol Injection, 30 mg ([id number])By: On: 23-Sep-2007 Intent Kasey Aguiar MD CT - AbdomenBy: Kasey Aguiar MD On: 16-Nov-2006 Intent Comments: kidney Aerosol Treatment ([id number])By: DAYAN On: 29-Jul-2006 Intent MARIOLA SCHMITT Comments: lungs cleared after treatment Pulse Oximetry ([id number])By: DAYAN SCHMITT, On: 29-Jul-2006 Intent MARIOLA Spirometry ([id number])By: Stefania CAMPBELL, On: 23-Apr-2006 Intent Kasey Farrell Pulse Oximetry ([id number])By: Stefania CAMPBELL, On: 23-Apr-2006 Intent Kasey Farrell Instructions Name Dates Details TIA (transient ischemic attack) : How to access health information online Indication: TIA (transient ischemic attack) TIA (transient ischemic attack) : How to access health information online - Detail Indication: TIA (transient ischemic attack) TIA (transient ischemic attack) : Patient Instructions Indication: TIA (transient ischemic attack) TIA (transient ischemic attack) : How to access health information online Indication: TIA (transient ischemic attack) TIA (transient ischemic attack) : How to access health information online - Detail Indication: TIA (transient ischemic attack) TIA (transient ischemic attack) : Patient Instructions Indication: TIA (transient ischemic attack) Controlled diabetes mellitus with ophthalmic complication, without long-term current use of insulin : How to access health information online Indication: Controlled diabetes mellitus with ophthalmic complication, without long- term current use of insulin Controlled diabetes mellitus with ophthalmic complication, without long-term current use of insulin : How to access health information online - Detail Indication: Controlled diabetes mellitus with ophthalmic complication, without long- term current use of insulin Controlled diabetes mellitus with ophthalmic complication, without long-term current use of insulin : Patient Instructions Indication: Controlled diabetes mellitus with ophthalmic complication, without long- term current use of insulin Controlled diabetes mellitus with ophthalmic complication, without long-term current use of insulin : DISCONTINUED - URINALYSIS ([id number]) Indication: Controlled diabetes mellitus with ophthalmic complication, without long- term current use of insulin Controlled diabetes mellitus with ophthalmic complication, without long-term current use of insulin : How to access health information online Indication: Controlled diabetes mellitus with ophthalmic complication, without long- term current use of insulin Controlled diabetes mellitus with ophthalmic complication, without long-term current use of insulin : How to access health information online - Detail Indication: Controlled diabetes mellitus with ophthalmic complication, without long- term current use of insulin Controlled diabetes mellitus with ophthalmic complication, without long-term current use of insulin : Patient Instructions Indication: Controlled diabetes mellitus with ophthalmic complication, without long- term current use of insulin Controlled diabetes mellitus with ophthalmic complication, without long-term current use of insulin : How to access health information online Indication: Controlled diabetes mellitus with ophthalmic complication, without long- term current use of insulin Controlled diabetes mellitus with ophthalmic complication, without long-term current use of insulin : How to access health information online - Detail Indication: Controlled diabetes mellitus with ophthalmic complication, without long- term current use of insulin Controlled diabetes mellitus with ophthalmic complication, without long-term current use of insulin : Patient Instructions Indication: Controlled diabetes mellitus with ophthalmic complication, without long- term current use of insulin Memory loss : How to access health information online Indication: Memory loss Memory loss : How to access health information online - Detail Indication: Memory loss Memory loss : Patient Instructions Indication: Memory loss Controlled diabetes mellitus with ophthalmic complication, without long-term current use of insulin : How to access health information online Indication: Controlled diabetes mellitus with ophthalmic complication, without long- term current use of insulin Controlled diabetes mellitus with ophthalmic complication, without long-term current use of insulin : How to access health information online - Detail Indication: Controlled diabetes mellitus with ophthalmic complication, without long- term current use of insulin Unexplained weight loss : Patient Instructions Indication: Unexplained weight loss Laceration of left hand : How to access health information online Indication: Laceration of left hand Laceration of left hand : How to access health information online - Detail Indication: Laceration of left hand Laceration of left hand : Patient Instructions Indication: Laceration of left hand Controlled diabetes mellitus with ophthalmic complication, without long-term current use of insulin : How to access health information online Indication: Controlled diabetes mellitus with ophthalmic complication, without long- term current use of insulin Controlled diabetes mellitus with ophthalmic complication, without long-term current use of insulin : How to access health information online - Detail Indication: Controlled diabetes mellitus with ophthalmic complication, without long- term current use of insulin Controlled diabetes mellitus with ophthalmic complication, without long-term current use of insulin : Patient Instructions Indication: Controlled diabetes mellitus with ophthalmic complication, without long- term current use of insulin Urinary urgency : How to access health information online Indication: Urinary urgency Urinary urgency : How to access health information online - Detail Indication: Urinary urgency Urinary urgency : Patient Instructions Indication: Urinary urgency Controlled diabetes mellitus with ophthalmic complication, without long-term current use of insulin : How to access health information online Indication: Controlled diabetes mellitus with ophthalmic complication, without long- term current use of insulin Controlled diabetes mellitus with ophthalmic complication, without long-term current use of insulin : How to access health information online - Detail Indication: Controlled diabetes mellitus with ophthalmic complication, without long- term current use of insulin Controlled diabetes mellitus with ophthalmic complication, without long-term current use of insulin : Patient Instructions Indication: Controlled diabetes mellitus with ophthalmic complication, without long- term current use of insulin Dizziness : How to access health information online Indication: Dizziness Dizziness : How to access health information online - Detail Indication: Dizziness Dizziness : Patient Instructions Indication: Dizziness Controlled diabetes mellitus with ophthalmic complication, without long-term current use of insulin : How to access health information online Indication: Controlled diabetes mellitus with ophthalmic complication, without long- term current use of insulin Controlled diabetes mellitus with ophthalmic complication, without long-term current use of insulin : How to access health information online - Detail Indication: Controlled diabetes mellitus with ophthalmic complication, without long- term current use of insulin Controlled diabetes mellitus with ophthalmic complication, without long-term current use of insulin : Patient Instructions Indication: Controlled diabetes mellitus with ophthalmic complication, without long- term current use of insulin Controlled diabetes mellitus with ophthalmic complication, without long-term current use of insulin : How to access health information online Indication: Controlled diabetes mellitus with ophthalmic complication, without long- term current use of insulin Controlled diabetes mellitus with ophthalmic complication, without long-term current use of insulin : How to access health information online - Detail Indication: Controlled diabetes mellitus with ophthalmic complication, without long- term current use of insulin Controlled diabetes mellitus with ophthalmic complication, without long-term current use of insulin : Patient Instructions Indication: Controlled diabetes mellitus with ophthalmic complication, without long- term current use of insulin Gait disturbance : Patient Instructions Indication: Gait disturbance Controlled diabetes mellitus with ophthalmic complication, without long-term current use of insulin : How to access health information online Indication: Controlled diabetes mellitus with ophthalmic complication, without long- term current use of insulin Controlled diabetes mellitus with ophthalmic complication, without long-term current use of insulin : How to access health information online - Detail Indication: Controlled diabetes mellitus with ophthalmic complication, without long- term current use of insulin Controlled diabetes mellitus with ophthalmic complication, without long-term current use of insulin : Patient Instructions Indication: Controlled diabetes mellitus with ophthalmic complication, without long- term current use of insulin Controlled diabetes mellitus with ophthalmic complication, without long-term current use of insulin : Patient Instructions Indication: Controlled diabetes mellitus with ophthalmic complication, without long- term current use of insulin Controlled diabetes mellitus with ophthalmic complication, without long-term current use of insulin : Patient Instructions Indication: Controlled diabetes mellitus with ophthalmic complication, without long- term current use of insulin Back pain : Patient Instructions Indication: Back pain Encounters Annotation/Addendum On: 28-Oct-2017 7:24 [facility] End: 28-Oct-2017 7:27 Office Visit On: 27-Oct-2017 13:48 Encounter Reason: Follow up for chronic medical issues - The patient feels well with minor complaints, has decreased energy level and is sleeping well. Patient has been compliant with instructions. Current medication use End: 27-Oct-2017 14:44 : no side effects, compliant with dosing regimen and considered effective by patient. Patient sleeps 8 hours per night. Nutrition: balanced diet and supplemental vitamins. The medical issues the patient is following up for include blood sugar issues, cardiac issues, depression, gastric reflux, high blood pressure, high cholesterol, kidney problems and other (memory loss, overweight, RLS, gait disturba nce, IBS, hx. colon polyps, vitamin d def., diabetic retinopathy ). Note for Follow up for chronic medical issues: stopped cerefolin and some memory improved, [ADDITIONAL REASON] Back Pain - Note for Back pain: has lumbar back , [ADDITIONAL REASON] Nocturia - Note for Nocturia: feels like getting up 4-5 times per night Encounter Diagnosis: Diabetic retinopathy, nonproliferative, Depressive disorder, TIA (transient ischemic attack), Current nonsmoker (Renamed from Current non-smoker), BMI 27.0-27.9,adult, Lacunar infarction, Debility [facility] Office Visit On: 22-Sep-2017 7:48 Encounter Reason: Transition into care - The patient is transitioning into care from a hospital and a summary of care was not provided (requested, but not here). Note for Transition into care: After trip was at restaur End: 22-Sep-2017 9:05 ant and unable to speak, went to [facility], once squad got there he was able to answer. Was admitted to [facility]. Was told to take lipitor but did not want to take, [ADDITIONAL REASON] Follow up hospital - Reason for ER visit: note: (TIA). The patient does not feel well (weakness). Patient has been compliant with instructions. The hospital results of the other (MRI CT Scan) were Encounter Diagnosis: TIA (transient ischemic attack), BMI 28.0-28.9,adult, Current nonsmoker (Renamed from Current non-smoker), Lacunar infarction [facility] Office Visit On: 24-Jul-2017 6:08 [facility] End: 24-Jul-2017 6:13 Office Visit On: 22-Jul-2017 13:25 Encounter Reason: Follow up for chronic medical issues - The patient feels well with minor complaints, has decreased energy level and is sleeping well. Patient has been compliant with instructions. Current medication use End: 22-Jul-2017 14:14 : no side effects, compliant with dosing regimen and considered effective by patient. Patient sleeps 8 hours per night. Nutrition: balanced diet and supplemental vitamins. The medical issues the patient is following up for include blood sugar issues, cardiac issues, depression, gastric reflux, high blood pressure, high cholesterol, kidney problems and other (memory loss, overweight, RLS, gait disturba nce, IBS, hx. colon polyps, vitamin d def., diabetic retinopathy ). Note for Follow up for chronic medical issues: stopped cerefolin and some memory improvedEncounter Diagnosis: Controlled diabetes mellitus with ophthalmic complication, without long-term current use of insulin, Depressive disorder, Current nonsmoker (Renamed from Current non-smoker), BMI 28.0-28.9,adult, Lacunar infarction, Memory loss [facility] Office Visit On: 24-Apr-2017 11:24 Encounter Reason: Follow up tests - Diagnostic tests include other (labs)., [ADDITIONAL REASON] Follow up for chronic medical issues - The patient feels well with minor complai End: 24-Apr-2017 13:15 nts, has decreased energy level and is sleeping well. Patient has been compliant with instructions. Current medication use: no side effects, compliant with dosing regimen and considered effective by deepa thompson. Patient sleeps 8 hours per night. Nutrition: balanced diet and supplemental vitamins. The medical issues the patient is following up for include blood sugar issues, cardiac issues, depression, gas tric reflux, high blood pressure, high cholesterol, kidney problems and other (memory loss, overweight, RLS, gait disturbance, IBS, hx. colon polyps, vitamin d def., diabetic retinopathy ). Note for Fo llow up for chronic medical issues: stopped cerefolin and some memory improved Encounter Diagnosis: Controlled diabetes mellitus with ophthalmic complication, without long-term current use of insulin, Hypercholesterolemia, Memory loss, Current nonsmoker (Renamed from Current non-smoker), BMI 27.0-27.9,adult, Gas pain [facility] Office Visit On: 21-Jan-2017 10:46 Encounter Reason: Follow up for chronic medical issues - The patient feels well with minor complaints, has decreased energy level and is sleeping well. Patient has been compliant with instructions. Current medication use End: 21-Jan-2017 11:46 : no side effects, compliant with dosing regimen and considered effective by patient. Patient sleeps 8 hours per night. Nutrition: balanced diet and supplemental vitamins. The medical issues the patient is following up for include blood sugar issues, cardiac issues, depression, gastric reflux, high blood pressure, high cholesterol, kidney problems and other (memory loss, overweight, RLS, gait disturba nce, IBS, hx. colon polyps, vitamin d def., diabetic retinopathy ). Note for Follow up for chronic medical issues: stopped cerefolin and some memory improved, [ADDITIONAL REASON] Visual loss - Note for Visual loss: Vision has worsened, loss of peripheral vision , [ADDITIONAL REASON] Memory impairment - Note for Memory impairment: Memory issues worsening, meds not working secondary to side effects. Encounter Diagnosis: Controlled diabetes mellitus with ophthalmic complication, without long-term current use of insulin, Memory loss, BMI 28.0-28.9,adult, CKD stage G3a/A1, GFR 45 - 59 and albumin creatinine ratio <30 mg/g, Urinary urgency, Hypercholesterolemia, Hypertension, Gait disturbance, Macular degeneration [facility] Office Visit On: 07-Nov-2016 13:20 Encounter Reason: Follow up tests - Diagnostic tests include other (labs). Date: (10/10/16). Note for Discuss procedure results: still with low back pain cannot stand for long, End: 07-Nov-2016 15:20 [ADDITIONAL REASON] Decreased memory - Note for Decreased memory: Great forgetfulness short term memory loss ongoing for long time Encounter Diagnosis: BMI 28.0- 28.9,adult, Current nonsmoker (Renamed from Current non-smoker), Memory loss, Atherosclerosis of coronary artery, CKD stage G3a/A1, GFR 45 - 59 and albumin creatinine ratio <30 mg/g, Back pain (724.5) [facility] Office Visit On: 10-Oct-2016 7:17 Encounter Reason: Follow up for chronic medical issues - The patient feels well with minor complaints (short term memory issuesweaknesslower back pain), has decreased energy level and is sleeping poorly. Current medicati End: 10-Oct-2016 12:17 on use: no side effects, compliant with dosing regimen and considered effective by patient. Patient sleeps 8 hours per night. Nutrition: balanced diet and supplemental vitamins. The medical issues the p atient is following up for include blood sugar issues, cardiac issues, depression, gastric reflux, high blood pressure, high cholesterol, kidney problems and other (memory loss, overweight, RLS, gait di sturbance, IBS, hx. colon polyps, vitamin d def., diabetic retinopathy )., [ADDITIONAL REASON] Back Pain - This condition occurred without any known injury. The injury involve d the lower back. Symptoms include back pain. Symptoms are located in the midline lower back, left lower back and right lower back. The pain radiates to the abdomen. The symptoms occur intermittently. S ymptoms are exacerbated by standing, sitting, lifting, bending and walking down stairs. , [ADDITIONAL REASON] Memory impairment Encounter Diagnosis: Nonsmoker, Controlled diabetes mellitus with ophthalmic complication, without long-term current use of insulin, Atherosclerosis of coronary artery, GERD (gastroesophageal reflux disease), BMI 28.0-28.9,adult, Low back pain, CKD stage G3a/A1, GFR 45 - 59 and albumin creatinine ratio <30 mg/g, Hypercholesterolemia, Unexplained weight loss [facility] Office Visit On: 16-Apr-2016 7:18 Encounter Reason: Follow up ER - Reason for hospitalization note: (laceration). Note for Follow up ER: fell or cut hand at night, went to urgent care Encounter Diagnosis: BMI 28.0-28.9,adult, Nonsmoker, Laceration of left hand, End: 16-Apr-2016 12:06 Visit for suture removal [facility] Office Visit On: 12-Mar-2016 9:19 Encounter Reason: Follow up for chronic medical issues - The patient does not feel well, has decreased energy level and is sleeping poorly. Current medication use: no side effects, compliant with dosing regimen and consi End: 12-Mar-2016 15:38 dered effective by patient. Nutrition: balanced diet and supplemental vitamins. The medical issues the patient is following up for include blood sugar issues, cardiac issues, depression, gastric reflux, high blood pressure, high cholesterol, kidney problems and other (memory loss, overweight, RLS, gait disturbance, IBS, hx. colon polyps, vitamin d def., diabetic retinopathy )., [ADDITIONAL REASON] Follow up tests - Date: (03.05.16). Encounter Diagnosis: Controlled diabetes mellitus with ophthalmic complication, without long-term current use of insulin, Skin cancer, GERD (gastroesophageal reflux disease), Asthma without status asthmaticus or acute exacerbation, Urinary urgency, LUQ abdominal tenderness, Lacunar infarction, Vitamin D deficiency, Depressive disorder, CKD stage G3a/A1, GFR 45 - 59 and albumin creatinine ratio <30 mg/g, Atherosclerosis of coronary artery, Hypercholesterolemia, History of colon polyps [facility] Office Visit On: 06-Dec-2015 7:17 Encounter Reason: Follow up for chronic medical issues - The patient feels well with minor complaints (stomach pains at night. Begins LUQ, and radiates across) and has decreased energy level. Patient has been compliant w End: 06-Dec-2015 16:18 ith instructions. Current medication use: no side effects, compliant with dosing regimen and considered effective by patient. Patient sleeps 9 hours per night. Impact of disease: emotional impact-mild. Nutrition: balanced diet and supplemental vitamins. The medical issues the patient is following up for include blood sugar issues, cardiac issues, depression, gastric reflux, high blood pressure, high c holesterol, kidney problems and other (memory loss, overweight, RLS, gait disturbance, IBS, hx. colon polyps, vitamin d def., diabetic retinopathy ).Encounter Diagnosis: Controlled diabetes mellitus with ophthalmic complication, without long-term current use of insulin, Urinary urgency, Asthma without status asthmaticus or acute exacerbation, Gait disturbance, Restless leg, Atherosclerosis of coronary artery, CKD stage G3a/A1, GFR 45 - 59 and albumin creatinine ratio <30 mg/g, Calcification of aorta (Renamed from Aortic calcification), GERD (gastroesophageal reflux disease), Depressive disorder, History of colon polyps, Hypercholesterolemia, Vitamin D deficiency, Memory loss, Lacunar infarction, Hematuria (599.70), Chronic prostatitis, Gallstones, Skin lesion of face, Dizziness, LUQ abdominal tenderness, Skin cancer [facility] Office Visit On: 28-Aug-2015 14:46 Encounter Reason: Follow up for chronic medical issues - The patient feels well with minor complaints and has decreased energy level. Patient has been compliant with instructions. Current medication use: no side effects, End: 28-Aug-2015 15:49 compliant with dosing regimen and considered effective by patient. Patient sleeps 7 hours per night. Impact of disease: emotional impact-mild. Nutrition: balanced diet and supplemental vitamins. The me dical issues the patient is following up for include blood sugar issues, cardiac issues, depression, gastric reflux, high blood pressure, high cholesterol, kidney problems and other (memory loss, overwe ight, RLS, gait disturbance, IBS, hx. colon polyps, vitamin d def., diabetic retinopathy ).Encounter Diagnosis: Urinary urgency, History of tobacco abuse, Controlled diabetes mellitus with ophthalmic complication, without long-term current use of insulin, Depressive disorder, GERD (gastroesophageal reflux disease), History of colon disorder, Hypercholesterolemia, Other intervertebral disc degeneration, lumbar region, Gait disturbance, Current nonsmoker (Renamed from Current non-smoker), Restless leg, Calcification of aorta (Renamed from Aortic calcification), CKD stage G3a/A1, GFR 45 - 59 and albumin creatinine ratio <30 mg/g, Irritable bowel syndrome, Gallstones, Atherosclerosis of coronary artery, History of colon polyps, Chronic prostatitis, Vitamin D deficiency, Memory loss, Lacunar infarction, Skin lesion of face, Hematuria (599.70), Asthma without status asthmaticus or acute exacerbation [facility] Phone Encounter On: 17-Aug-2015 13:36 Encounter Diagnosis: Unspecified Diagnosis End: 17-Aug-2015 13:41 [facility] Historical Summary On: 16-Aug-2015 16:55 [facility] End: 16-Aug-2015 16:56 Phone Encounter On: 16-Aug-2015 11:47 Encounter Diagnosis: Unspecified Diagnosis End: 16-Aug-2015 11:52 [facility] Office Visit On: 18-May-2015 10:06 Encounter Reason: Follow up for chronic medical issues - The patient feels well with no complaints, has good energy level and is sleeping well. Patient has been compliant with instructions. Current medication use: no ambar End: 18-May-2015 11:04 e effects, compliant with dosing regimen and considered effective by patient. Patient sleeps 8 hours per night. Impact of disease: emotional impact-moderate. Nutrition: balanced diet and supplemental vi tamins. The medical issues the patient is following up for include asthma, blood sugar issues, cardiac issues, depression, high blood pressure, high cholesterol, kidney problems and other (RLS, IBS, memory loss ).Encounter Diagnosis: Controlled diabetes mellitus with ophthalmic complication, without long-term current use of insulin, Current nonsmoker (Renamed from Current non-smoker), Gait disturbance, Restless leg, Atherosclerosis of coronary artery, CKD stage G3a/A1, GFR 45 - 59 and albumin creatinine ratio <30 mg/g, Calcification of aorta (Renamed from Aortic calcification), GERD (gastroesophageal reflux disease), Asthma without status asthmaticus or acute exacerbation, Depressive disorder, History of colon disorder, Other intervertebral disc degeneration, lumbar region, Hypercholesterolemia, History of colon polyps, Irritable bowel syndrome, Vitamin D deficiency, Memory loss, Lacunar infarction, Hematuria (599.70), Chronic prostatitis , Urinary urgency, Gallstones, Skin lesion of face [facility] Office Visit On: 09-Mar-2015 9:00 Encounter Reason: Annual Medicare Exam - The patient had reviewed and updated the family history, medication/s, past medical history and social history. Yes the patient did have a mini mental status exam done today. The End: 12-Mar-2015 16:35 activities of daily living the patient needs help with are none. The patient has had urinary incontinence, put area rugs through house and put handrails in bathroom, but the patient has not had fecal in continence, missed or ran out of medications to soon, driven in past 6 months, fallen in the past 6 months, gotten lost or has a medalert necklace or bracelet. The patient has completed the following pr eventative measures: colonoscopy (08-08 colonscopy good 2 years). The patient does have durable power of collections attorney and living will. The patient has noticed dropping activities and interests, getting bored , staying at home rather than doing something new or going out and lack of energy. Other providers contributing to the patient's care are french professor (see next week.), gastrologist (last saw 09-08) and urologist (new med ??for urgency but needs prior auth. working with urology on this). Note for Annual Medicare Exam: eye exxam this year check ??for glaucoma. not notice depressed. memory betterthan was. notice patch helped. 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 Patient has been compliant with instructions. Current medication use: no side effects and compliant with dosing regimen. Patient sleeps 7 hours p End: 29-Dec-2014 10:10 er night. Impact of disease: emotional impact-moderate. Nutrition: balanced diet and supplemental vitamins. The medical issues the patient is following up for include other (vertigo ).Encounter Diagnosis: Dizziness, Confusion, Memory loss, Gait disturbance [facility] Office Visit On: 08-Dec-2014 9:44 Encounter Reason: Follow up for chronic medical issues - The patient feels well with minor complaints and has decreased energy level. Patient has been compliant with instructions. Current medication use: no side effects End: 11-Dec-2014 8:07 and considered effective by patient. Patient sleeps 7 hours per night. Impact of disease: emotional impact-mild. Nutrition: balanced diet and supplemental vitamins. 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), Coronary Artery Disease (414.00), Calcification of aorta (Renamed from Aortic calcification), Depressive Disorder (311.), GERD (530.81), Asthma, unspecified type, without mention of status asthmaticus (493.90), Hematuria (599.70), Gallstones, Change in mental status, Well Male Exam (V70.0), Hypercholesterolemia (272.0), Chronic prostatitis, Memory loss, Irritable bowel syndrome (564.1), Vitamin D deficiency (268.9), History of colon disorder, Lacunar infarction, Gait disturbance, RLS (restless legs syndrome) (333.94), Dizziness [facility] Office Visit On: 25-Aug-2014 9:22 Encounter Reason: Follow up for chronic medical issues - The patient feels well with no complaints, has good energy level and is sleeping well. Patient has been compliant with instructions. Current medication use: no ambar End: 25-Aug-2014 9:53 e effects, compliant with dosing regimen and considered effective by patient. Patient sleeps 7 hours per night. Impact of disease: emotional impact-mild. Nutrition: balanced diet and supplemental vitami ns. The medical issues the patient is following up for include blood sugar issues, cardiac issues, depression, high blood pressure, high cholesterol, kidney problems and other (dementia, BPH, IBS, DDD, vitmain d def., RLS ).Encounter Diagnosis: Diabetes type II, controlled, ophthalmic comp (250.50), Chronic prostatitis, Depressive Disorder (311.), Calcification of aorta (Renamed from Aortic calcification), GERD (530.81), Hematuria (599.70), Asthma, unspecified type, without mention of status asthmaticus (493.90), Hypercholesterolemia (272.0), Coronary Artery Disease (414.00), Urinary urgency, Degenerative Disc Disease - Lumbar (722.52), Colon Polyps, History of (V12.72), 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 Patient has been compliant with instructions. Current medication use End: 12-May-2014 10:34 : no side effects, compliant with dosing regimen and considered effective by patient. Patient sleeps 7 hours per night. Impact of disease: emotional impact-mild. Nutrition: balanced diet and supplementa l vitamins. The medical issues the patient is following up for include blood sugar issues, cardiac issues, depression, high blood pressure, high cholesterol, kidney problems and other (dementia, BPH, IBS, DDD, vitmain d def., RLS ). 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), Colon Polyps, History of (V12.72), Memory loss, GERD (530.81), Calcification of aorta (Renamed from Aortic calcification), Hematuria (599.70), Hypercholesterolemia (272.0), Asthma, unspecified type, without mention of status asthmaticus (493.90), Lacunar infarction, Confusion, Vitamin D deficiency (268.9), CKD stage G3a/A1, GFR 45 - 59 and albumin creatinine ratio <30 mg/g, Diabetes type II, controlled, ophthalmic comp (250.50), Gait disturbance, RLS (restless legs syndrome) (333.94), Irritable bowel syndrome (564.1), Chronic prostatitis, Change in mental status, Well Male Exam (V70.0), History of colon disorder, Gallstones [facility] Office Visit On: 25-Apr-2014 7:55 Encounter Reason: Follow up tests - Diagnostic tests include other (labs). Date: (04/14/14).Encounter Diagnosis: Lacunar infarction, Urinary urgency, Vitamin D deficiency (268.9), Diabetes type II, controlled, ophthalmic comp (250.50), End: 25-Apr-2014 9:27 CKD stage G3a/A1, GFR 45 - 59 and albumin creatinine ratio <30 mg/g, Abdominal pain [facility] Office Visit On: 14-Apr-2014 8:43 Encounter Reason: Memory impairment - The onset of the memory impairment has been sudden and has been occurring in a persistent pattern for 2 weeks. The course has been increasing. The memory impairment is characterized End: 14-Apr-2014 9:48 as a loss of recent memory. There has been no associated ataxia. Note for Memory impairment: Started 5 days ago. change in mental status and gait disturbance, urgent urination Encounter Diagnosis: Confusion, Change in mental status, Gait disturbance [facility] Office Visit On: 10-Feb-2014 10:20 Encounter Reason: Follow up acute care visit - The patient feeling better since last seen and improving. Patient has been compliant with instructions. Current medication use: no side effects and compliant with dosing reg End: 10-Feb-2014 10:57 imen. Patient sleeps 7 hours per night. Impact of disease: emotional impact-moderate. Nutrition: balanced diet and supplemental vitamins. The medical issues the patient is following up for include depression and other (memory loss ). Encounter Diagnosis: Memory loss, Depressive Disorder (311.), Parkinsonism, Hypercholesterolemia (272.0) [facility] Office Visit On: 09-Dec-2013 7:41 Encounter Reason: Follow up for chronic medical issues - The patient feels well with no complaints, has decreased energy level and is sleeping poorly. Patient has been compliant with instructions. Current medication use: End: 09-Dec-2013 17:04 no side effects, compliant with dosing regimen and considered effective by patient. Patient sleeps 4 (gets up during sleep) hours per night. Impact of disease: emotional impact-moderate. Nutrition: bal anced diet and supplemental vitamins. The medical issues the patient is following up for include blood sugar issues, cardiac issues, depression, gastric reflux, high blood pressure, high cholesterol and other (IBS, RLS, insomnia, vitamin d def., macular degeneration, DDD ).Encounter Diagnosis: Diabetes type II, controlled, ophthalmic comp (250.50), Memory loss, Depressive Disorder (311.), Lacunar infarction, Parkinsonism, Irritable bowel syndrome (564.1), GERD (530.81), Hypercholesterolemia (272.0), Calcification of aorta (Renamed from Aortic calcification), Asthma, unspecified type, without mention of status asthmaticus (493.90), Hematuria (599.70), Coronary Artery Disease (414.00), Degenerative Disc Disease - Lumbar (722.52), Vitamin D deficiency (268.9), Colon Polyps, History of (V12.72), 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 Patient has been compliant with instructions. Current medication u End: 29-Aug-2013 9:03 se: no side effects, compliant with dosing regimen and considered effective by patient. Patient sleeps 4 hours per night. Impact of disease: emotional impact-moderate. Nutrition: balanced diet and suppl emental vitamins. The medical issues the patient is following up for include blood sugar issues, cardiac issues, depression, gastric reflux, high blood pressure, high cholesterol and other (IBS, RLS, in somnia, vitamin d def., macular degeneration, DDD ).Encounter Diagnosis: Diabetes type II, controlled, ophthalmic comp (250.50), Asthma, unspecified type, without mention of status asthmaticus (493.90), Lower Leg Pain (719.46), Hematuria (599.70), Coronary Artery Disease (414.00), Degenerative Disc Disease - Lumbar (722.52), Calcification of aorta (Renamed from Aortic calcification), Irritable bowel syndrome (564.1), GERD (530.81), Type II Diabetes,controlled (250.00), Hypercholesterolemia (272.0), Vitamin D deficiency (268.9), Well Male Exam (V70.0), Memory loss, RLS (restless legs syndrome) (333.94), Chronic prostatitis, Colon Polyps, History of (V12.72), 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 Yes the patient did have a mini mental status exam done today. The End: 09-Jun-2013 10:05 activities of daily living the patient needs help with are none. The patient has driven in past 6 months, put area rugs through house and put handrails in bathroom, but the patient has not had fecal inc ontinence, had urinary incontinence, missed or ran out of medications to soon, fallen in the past 6 months, gotten lost or has a medalert necklace or bracelet. The patient has completed the following pr eventative measures: PSA testing (04-28-13) and colonoscopy (August 2006 [place] ). The patient does have durable power of collections attorney and living will. The patient has noticed dropping activities and interests, staying at home rather than doing something new or going out and having problems with memory than others. Other providers contributing to the patient's care are french professor (Dr. Melvin ), urologist (Dr. Pantoja ) and other: ([place]th[place]: Dr. Stanley ). Encounter Diagnosis: Well Male Exam (V70.0), Vitamin D deficiency (268.9), Colon Polyps, History of (V12.72), Hypercholesterolemia (272.0), Memory loss [facility] Prescription Refill On: 05-May-2013 6:56 Encounter Diagnosis: Lower Leg Pain (719.46) End: 05-May-2013 6:57 [facility] Annotation/Addendum On: 29-Apr-2013 12:12 Encounter Diagnosis: Vitamin D deficiency (268.9) End: 29-Apr-2013 12:17 [facility] Office Visit On: 28-Apr-2013 8:25 Encounter Reason: Follow up for chronic medical issues - The patient feels well with minor complaints, has good energy level and is sleeping well. Patient has been compliant with instructions. Current medication use: no End: 28-Apr-2013 9:11 side effects. Patient sleeps 6 hours per night. Nutrition: inadequate caloric intake. 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.03), Degenerative Disc Disease - Lumbar (722.52), Chronic prostatitis, Lower Leg Pain (719.46), RLS (restless legs syndrome) (333.94), Hip pain, bilateral (719.45), Vitamin D deficiency (268.9), GERD (530.81), Fall (E888.9), WMV, Irritable bowel syndrome (564.1), Back pain (724.5), Calcification of aorta (Renamed from Aortic calcification), Well Male Exam (V70.0) [facility] Annotation/Addendum On: 18-Jan-2013 8:52 Encounter Diagnosis: Vitamin D deficiency (268.9) End: 18-Jan-2013 8:56 [facility] Office Visit On: 17-Jan-2013 9:30 Encounter Reason: Follow up for chronic medical issues - The patient feels well with minor complaints, has good energy level and is sleeping well. Patient has been compliant with instructions. Current medication use: no End: 17-Jan-2013 10:44 side effects and compliant with dosing regimen. Patient sleeps 6 hours per night. Nutrition: inadequate caloric intake. The medical issues the patient is following up for include All identified problems below, asthma, gastric reflux, high cholesterol and other (IBS, DDD, RLS, CAD).Encounter Diagnosis: Diabetes type II, controlled, ophthalmic comp (250.50), Hip pain, bilateral (719.45), RLS (restless legs syndrome) (333.94), GERD (530.81) [facility] Office Visit On: 18-Oct-2012 9:21 Encounter Reason: Follow up acute care visit - The patient feeling better since last seen. Patient has been compliant with instructions. Current medication use: no side effects, compliant with dosing regimen and consider End: 18-Oct-2012 10:43 ed effective by patient. Patient sleeps 5 hours per night. The medical issues the patient is following up for include All identified problems below and other (back pain, RLS).Encounter Diagnosis: Back pain (724.5), RLS (restless legs syndrome) (333.94), Calcification of aorta (440.0), Diabetes type II, controlled, ophthalmic comp (250.50) [facility] Annotation/Addendum On: 04-Oct-2012 14:40 Encounter Diagnosis: Unspecified Diagnosis End: 04-Oct-2012 14:43 [facility] Annotation/Addendum On: 04-Oct-2012 14:38 Encounter Diagnosis: Unspecified Diagnosis End: 04-Oct-2012 14:40 [facility] Office Visit On: 04-Oct-2012 9:40 Encounter Reason: Follow up ER - Reason for hospitalization note: (back pain- fall).Encounter Diagnosis: Back pain (724.5), Hematuria (599.70), Fall (E888.9), RLS (restless legs syndrome) (333.94) End: 04-Oct-2012 10:29 [facility] Historical Summary On: 06-Dec-2011 8:34 Encounter Diagnosis: 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 The urinary problem is characterized as frequency ( wake up like 6 times in the night to go), urgency, painfu End: 01-Sep-2011 12:57 l urination and incomplete bladder emptying., [ADDITIONAL REASON] Nausea - Symptom onset was 2 week(s) ago. , [ADDITIONAL REASON] Headache - Onset was 2 week(s) ago. Encounter Diagnosis: Chronic prostatitis (601.1) [facility] Office Visit On: 09-Apr-2011 8:04 Encounter Reason: Cough - The onset of the cough has been sudden. The cough is characterized as productive of mucoid sputum. The amount of sputum produced is scanty. The cough occurs all the time. The symptoms are aggra End: 09-Apr-2011 14:40 vated by supine posture. The symptoms have been associated with hoarseness and wheezing, while the symptoms have not been associated with dyspnea, edema, fever, headache, runny nose or sore throat. the color of the sputum is clear (morris). Encounter Diagnosis: Cough (786.2), Wheezing (786.07), BRONCHITIS, NOT SPECIFIED ACUTE OR CHRONIC (490.) [facility] Office Visit On: 16-Sep-2010 8:55 Encounter Diagnosis: SOB (786.05) End: 16-Sep-2010 8:56 [facility] Office Visit On: 16-Sep-2010 8:03 Encounter Reason: Follow up for chronic medical issues - The patient feels well with minor complaints, has good energy level and is sleeping well. Patient has been compliant with instructions. Current medication use: no End: 16-Sep-2010 8:28 side effects, compliant with dosing regimen and considered effective by patient. Patient sleeps 7 hours per night. Impact of disease: emotional impact-mild. Nutrition: balanced diet and supplemental vit amins. The medical issues the patient is following up for include blood sugar issues, cardiac issues, gastric reflux, high blood pressure, high cholesterol, kidney problems and other (DDD, IBS ).Encounter Diagnosis: Type II Diabetes,controlled (250.00), GERD (530.81), Asthma, unspecified type, without mention of status asthmaticus (493.90), Colon Polyps, History of (V12.72), Coronary Artery Disease (414.00), Irritable bowel syndrome (564.1), Degenerative Disc Disease - Lumbar (722.52), Hypercholesterolemia (272.0), SOB (786.05), Lower Leg Pain (719.46) [facility] Annotation/Addendum On: 31-Jul-2010 17:00 Encounter Diagnosis: Cough (786.2) End: 31-Jul-2010 17:02 [facility] Office Visit On: 31-Jul-2010 8:36 Encounter Reason: Cough - The onset of the cough has been sudden and has been occurring in a persistent pattern for 1 week. The course has been increasing. The cough is characterized as productive of mucoid sputum. The a End: 31-Jul-2010 8:58 mount of sputum produced is less than a half a cup per day. The cough occurs all the time. The symptoms are aggravated by supine posture. The symptoms have been associated with headache, hoarseness, run ny nose (white) and wheezing, while the symptoms have not been associated with edema, fever or long history of smoking.Encounter Diagnosis: BRONCHITIS, NOT SPECIFIED ACUTE OR CHRONIC (490.), Cough (786.2), Wheezing (786.07) [facility] Phone Encounter On: 17-Jun-2010 9:58 Encounter Diagnosis: Chronic prostatitis (601.1) End: 17-Jun-2010 9:59 [facility] Office Visit On: 13-Jun-2010 10:45 Encounter Reason: Follow up for chronic medical issues - The patient feels well with minor complaints, has good energy level and is sleeping well. Patient has been compliant with instructions. Current medication use: no End: 14-Jun-2010 11:14 side effects, compliant with dosing regimen and considered effective by patient. Patient sleeps 6 hours per night. Impact of disease: emotional impact-mild. Nutrition: balanced diet and supplemental vit amins. The medical issues the patient is following up for include asthma, blood sugar issues, cardiac issues, gastric reflux, high blood pressure, high cholesterol, kidney problems and other (IBS,obesity ).Encounter Diagnosis: Type II Diabetes,controlled (250.00), Dysuria (788.1), Hypercholesterolemia (272.0), Degenerative Disc Disease - Lumbar (722.52), Irritable bowel syndrome (564.1), Epigastric pain (789.06), Low back pain (724.2), Asthma, unspecified type, without mention of status asthmaticus (493.90), OTHER NONSPECIFIC FINDINGS ON EXAMINATION OF BLOOD, ELEVATED PROSTATE SPECIFIC ANTIGEN (PSA) (790.93), GERD (530.81), Coronary Artery Disease (414.00), Colon Polyps, History of (V12.72), Kidney stone (592.0), Duodenitis, thumb pain, Acute renal failure (584.9), WMV, Pre-operative examination, unspecified (V72.84), BRONCHITIS, NOT SPECIFIED ACUTE OR CHRONIC (490.), Type II Diabetes,uncontrolled (250.02), SOB (786.05), Hypokalemia (276.8), Urinary frequency (788.41), PNEUMONIA, ORGANISM UNSPECIFIED (486.), Cyst, kidney, acquired (593.2), Foot pain (729.5), Hyperglycemia (790.6), Chronic prostatitis (601.1), Actinic keratosis (702.0) [facility] Office Visit On: 11-Mar-2010 8:14 Encounter Reason: Follow up for chronic medical issues - The patient feels well with minor complaints and is sleeping well. Patient has been compliant with instructions. Current medication use: no side effects, compliant End: 11-Mar-2010 8:40 with dosing regimen and considered effective by patient. Patient sleeps 8 hours per night. Impact of disease: emotional impact-mild. Nutrition: balanced diet and supplemental vitamins. The medical issu es the patient is following up for include asthma, blood sugar issues, cardiac issues, gastric reflux, high blood pressure, high cholesterol, kidney problems and other (IBS).Encounter Diagnosis: Type II Diabetes,controlled (250.00), Dysuria (788.1), Asthma, unspecified type, without mention of status asthmaticus (493.90), Coronary Artery Disease (414.00), GERD (530.81), Hypercholesterolemia (272.0), Degenerative Disc Disease - Lumbar (722.52), OTHER NONSPECIFIC FINDINGS ON EXAMINATION OF BLOOD, ELEVATED PROSTATE SPECIFIC ANTIGEN (PSA) (790.93), Irritable bowel syndrome (564.1), PNEUMONIA, ORGANISM UNSPECIFIED (486.), Colon Polyps, History of (V12.72), Kidney stone (592.0), Well Male Exam (V70.0), Urinary tract infection, site not specified (599.0) [facility] Office Visit On: 14-Dec-2009 8:04 Encounter Reason: Follow up for chronic medical issues - The patient feels well with minor complaints (I have been having allot of abd pain but Dr. Regan is working on that.). Patient has been compliant with instruction End: 14-Dec-2009 8:47 s. Current medication use: experiencing side effects (something is bothering me, if I am on the computer I will just fall asleep, I don't know if it is medication related or not.). Patient sleeps 6 hours per night. Nutrition: balanced diet. , [ADDITIONAL REASON] Follow up, Laboratory Test Results - Date: (09/07). Encounter Diagnosis: Type II Diabetes,controlled (250.00), GERD (530.81), Coronary Artery Disease (414.00), Urinary tract infection, site not specified (599.0), Asthma, unspecified type, without mention of status asthmaticus (493.90), Chronic prostatitis (601.1), Cyst, kidney, acquired (593.2), OTHER NONSPECIFIC FINDINGS ON EXAMINATION OF BLOOD, ELEVATED PROSTATE SPECIFIC ANTIGEN (PSA) (790.93), Hypercholesterolemia (272.0), Irritable bowel syndrome (564.1), Hypokalemia (276.8), Degenerative Disc Disease - Lumbar (722.52), Actinic keratosis (702.0), Urinary frequency (788.41), Epigastric pain (789.06) [facility] Office Visit On: 07-Sep-2009 9:35 Encounter Reason: Follow up for chronic medical issues - The patient feels well with minor complaints ,has decreased energy level and is sleeping well. Patient has been compliant with instructions. Current medication use End: 07-Sep-2009 10:07 : no side effects ,compliant with dosing regimen and considered effective by patient. Patient sleeps 8 hours per night. Impact of disease: emotional impact-mild. Nutrition: balanced diet and supplementa l vitamins. The medical issues the patient is following up for include blood sugar issues ,cardiac issues ,high blood pressure ,high cholesterol and other (obesity, IBS). Encounter Diagnosis: Type II Diabetes,controlled (250.00), Urinary frequency (788.41), Foot pain (729.5), Cyst, kidney, acquired (593.2), Chronic prostatitis (601.1), Actinic keratosis (702.0), Hyperglycemia (790.6), Degenerative Disc Disease - Lumbar (722.52), Kidney stone (592.0), Hypokalemia (276.8), Irritable bowel syndrome (564.1), Coronary Artery Disease (414.00), Hypercholesterolemia (272.0), OTHER NONSPECIFIC FINDINGS ON EXAMINATION OF BLOOD, ELEVATED PROSTATE SPECIFIC ANTIGEN (PSA) (790.93), Asthma, unspecified type, without mention of status asthmaticus (493.90), GERD (530.81), Urinary tract infection, site not specified (599.0) [facility] Office Visit On: 24-May-2009 9:27 Encounter Reason: Follow up for chronic medical issues - The patient feels well with minor complaints and has decreased energy level. Patient has been compliant with instructions. Current medication use: no side effects End: 24-May-2009 10:12 ,compliant with dosing regimen and considered effective by patient. Patient sleeps 7 hours per night. Impact of disease: emotional impact-mild. Nutrition: balanced diet and supplemental vitamins. The ks dical issues the patient is following up for include asthma ,blood sugar issues ,cardiac issues ,high blood pressure ,high cholesterol ,kidney problems and other (obesity, DDD, IBS, chronic prostitis). Encounter Diagnosis: Type II Diabetes,controlled (250.00), Actinic keratosis (702.0), Chronic prostatitis (601.1), GERD (530.81), Asthma, unspecified type, without mention of status asthmaticus (493.90), OTHER NONSPECIFIC FINDINGS ON EXAMINATION OF BLOOD, ELEVATED PROSTATE SPECIFIC ANTIGEN (PSA) (790.93), Hypercholesterolemia (272.0), Coronary Artery Disease (414.00), Irritable bowel syndrome (564.1), Hypokalemia (276.8), Kidney stone (592.0), Degenerative Disc Disease - Lumbar (722.52), Hyperglycemia (790.6), Cyst, kidney, acquired (593.2), Foot pain (729.5) [facility] Historical Summary On: 12-Jan-2009 12:10 [facility] End: 12-Jan-2009 12:11 Office Visit On: 19-Oct-2008 7:21 Encounter Reason: Follow up for chronic medical issues - The patient feels well with minor complaints ,has good energy level and is sleeping well. Patient has been compliant with instructions. Current medication use: no End: 19-Oct-2008 7:41 side effects ,compliant with dosing regimen and considered effective by patient. Patient sleeps 7 hours per night. Impact of disease: emotional impact-mild. Nutrition: balanced diet and supplemental vit amins. The medical issues the patient is following up for include blood sugar issues ,cardiac issues ,gastric reflux ,high blood pressure ,high cholesterol ,kidney problems and other (obesity, IBS ). Encounter Diagnosis: Type II Diabetes,controlled (250.00), GERD (530.81), Asthma, unspecified type, without mention of status asthmaticus (493.90), Colon Polyps, History of (V12.72), OTHER NONSPECIFIC FINDINGS ON EXAMINATION OF BLOOD, ELEVATED PROSTATE SPECIFIC ANTIGEN (PSA) (790.93), Hypercholesterolemia (272.0), Coronary Artery Disease (414.00), Irritable bowel syndrome (564.1), Acute renal failure (584.9), Hypokalemia (276.8), Kidney stone (592.0), Chronic prostatitis (601.1), Epigastric pain (789.06), Degenerative Disc Disease - Lumbar (722.52), Hyperglycemia (790.6), Well Male Exam (V70.0) [facility] Office Visit On: 17-Aug-2008 10:43 Encounter Reason: Follow up hospital - Reason for ER visit: kidney stones. The patient feels well with no complaints ,has good energy level and is sleeping well. Patient has been compliant with instructions. Current medi End: 17-Aug-2008 11:20 cation use: no side effects ,compliant with dosing regimen and considered effective by patient. Patient sleeps 7 hours per night. Impact of disease: emotional impact-mild. Nutrition: balanced diet and supplemental vitamins. Encounter Diagnosis: Kidney stone (592.0), Hypokalemia (276.8), Acute renal failure (584.9), Duodenitis [facility] Office Visit On: 06-Jul-2008 8:00 Encounter Reason: Follow up for chronic medical issues - The patient feels well with minor complaints ,has good energy level and is sleeping well. Patient has been compliant with instructions. Current medication use: no End: 06-Jul-2008 8:35 side effects ,compliant with dosing regimen and considered effective by patient. Patient sleeps 7 hours per night. Impact of disease: emotional impact-mild. Nutrition: balanced diet and supplemental vit amins. The medical issues the patient is following up for include asthma ,blood sugar issues ,cardiac issues ,gastric reflux ,high blood pressure ,high cholesterol and other (obesity, DDD, IBS, chronic prostatitis ). Encounter Diagnosis: Type II Diabetes,controlled (250.00), Irritable bowel syndrome (564.1), Degenerative Disc Disease - Lumbar (722.52), thumb pain, Coronary Artery Disease (414.00), Hypercholesterolemia (272.0), GERD (530.81), Kidney stone (592.0), Colon Polyps, History of (V12.72), OTHER NONSPECIFIC FINDINGS ON EXAMINATION OF BLOOD, ELEVATED PROSTATE SPECIFIC ANTIGEN (PSA) (790.93), PNEUMONIA, ORGANISM UNSPECIFIED (486.), Asthma, unspecified type, without mention of status asthmaticus (493.90) , Chronic prostatitis (601.1), WMV, Epigastric pain (789.06), Hyperglycemia (790.6), Actinic keratosis (702.0) [facility] Office Visit On: 22-May-2008 10:02 Encounter Reason: Follow up acute care visit - The patient feeling better since last seen. Patient has been non-compliant with instructions. Current medication use: non-compliant with dosing regimen. Patient sleeps 6 geno End: 22-May-2008 10:20 rs per night. Impact of disease: emotional impact-mild. Nutrition: balanced diet. The medical issues the patient is following up for include other (IBS ). Encounter Diagnosis: Irritable bowel syndrome (564.1), Degenerative Disc Disease - Lumbar (722.52), thumb pain [facility] Office Visit On: 06-Apr-2008 8:11 Encounter Reason: Follow up for chronic medical issues - The patient feels well with minor complaints ,has good energy level and is sleeping well. Patient has been compliant with instructions. Current medication use: no End: 06-Apr-2008 8:45 side effects. Patient sleeps 5 hours per night. Nutrition: inappropriate diet and no supplemental vitamins & iron. , [ADDITIONAL REASON] Follow up, Laboratory Test Results - Date: (04.05.08 had a lipid, cmp, and cbc done. on face sheet. ). Encounter Diagnosis: Type II Diabetes,controlled (250.00), Chronic prostatitis (601.1), WMV, Irritable bowel syndrome (564.1), Hyperglycemia (790.6), Epigastric pain (789.06), OTHER NONSPECIFIC FINDINGS ON EXAMINATION OF BLOOD, ELEVATED PROSTATE SPECIFIC ANTIGEN (PSA) (790.93), GERD (530.81), Hypercholesterolemia (272.0), PNEUMONIA, ORGANISM UNSPECIFIED (486.), Colon Polyps, History of (V12.72), Coronary Artery Disease (414.00), Asthma, unspecified type, without mention of status asthmaticus (493.90), Kidney stone (592.0), thumb pain [facility] Office Visit On: 06-Jan-2008 8:39 Encounter Reason: Follow up for chronic medical issues - The patient feels well with no complaints ,has good energy level and is sleeping well. Patient has been compliant with instructions. Current medication use: no ambar End: 06-Jan-2008 9:01 e effects. Patient sleeps 6 hours per night. Impact of disease: no overall impact. Nutrition: balanced diet. The medical issues the patient is following up for include All identified problems below ,blo od sugar issues ,cardiac issues ,gastric reflux ,high blood pressure and high cholesterol. Encounter Diagnosis: Type II Diabetes,controlled (250.00), Chronic prostatitis (601.1), Hyperglycemia (790.6), Irritable bowel syndrome (564.1), Epigastric pain (789.06), Kidney stone (592.0), Asthma, unspecified type, without mention of status asthmaticus (493.90), GERD (530.81), Coronary Artery Disease (414.00), Hypercholesterolemia (272.0), Colon Polyps, History of (V12.72), Low back pain (724.2), OTHER NONSPECIFIC FINDINGS ON EXAMINATION OF BLOOD, ELEVATED PROSTATE SPECIFIC ANTIGEN (PSA) (790.93), WMV [facility] Office Visit On: 04-Oct-2007 9:16 Encounter Reason: Follow up for chronic medical issues - The patient feels well with minor complaints ,has good energy level and is sleeping well. Patient has been compliant with instructions. Current medication use: no End: 04-Oct-2007 9:39 side effects ,compliant with dosing regimen and considered effective by patient. Patient sleeps 7 hours per night. Impact of disease: emotional impact-mild. Nutrition: balanced diet. The medical issues the patient is following up for include asthma ,blood sugar issues ,cardiac issues ,high blood pressure ,high cholesterol ,osteoarthritis and other (obesity, IBS ). Encounter Diagnosis: Type II Diabetes,controlled (250.00), Low back pain (724.2), Irritable bowel syndrome (564.1), Kidney stone (592.0), Colon Polyps, History of (V12.72), OTHER NONSPECIFIC FINDINGS ON EXAMINATION OF BLOOD, ELEVATED PROSTATE SPECIFIC ANTIGEN (PSA) (790.93), PNEUMONIA, ORGANISM UNSPECIFIED (486.), Asthma, unspecified type, without mention of status asthmaticus (493.90), Hypercholesterolemia (272.0), Coronary Artery Disease (414.00), GERD (530.81), Hyperglycemia (790.6), Chronic prostatitis (601.1), WMV, Epigastric pain (789.06) [facility] Office Visit On: 23-Sep-2007 12:57 Encounter Reason: Hip Pain - The onset of the hip pain has been sudden following no specific incident and has been occurring in a persistent pattern for 6 days. The course has been gradually worsening. The hip pain is de End: 23-Sep-2007 13:52 scribed as a moderate sharp stabbing. The hip pain is described as being located in the groin (left). The pain is aggravated by walking ,prolonged standing ,climbing stairs ,bending ,squatting and prolo nged rest. Relieving factors include lying down. The symptoms have been associated with stiffness and decreased range of motion. Encounter Diagnosis: Low back pain (724.2) [facility] Office Visit On: 28-Jun-2007 9:13 Encounter Reason: Follow up for chronic medical issues - The patient feels well with minor complaints ,has good energy level and is sleeping well. Patient has been compliant with instructions. Current medication use: no End: 28-Jun-2007 9:53 side effects ,compliant with dosing regimen and considered effective by patient. Patient sleeps 7 hours per night. Impact of disease: emotional impact-mild. Nutrition: balanced diet. The medical issues the patient is following up for include blood sugar issues ,cardiac issues ,gastric reflux ,high blood pressure ,high cholesterol and other (IBS, obesity ). Note for Follow up for chronic medical issues: abd pain levisin helpsEncounter Diagnosis: Type II Diabetes,controlled (250.00), Type II Diabetes,uncontrolled (250.02), Hyperglycemia (790.6), Coronary Artery Disease (414.00), Irritable bowel syndrome (564.1), Hypercholesterolemia (272.0), OTHER NONSPECIFIC FINDINGS ON EXAMINATION OF BLOOD, ELEVATED PROSTATE SPECIFIC ANTIGEN (PSA) (790.93), GERD (530.81), SOB (786.05), Epigastric pain (789.06), Kidney stone (592.0), Colon Polyps, History of (V12.72), Chronic prostatitis (601.1), [facility] Office Visit On: 29-Mar-2007 8:59 Encounter Reason: Follow up for chronic medical issues - The patient feels well with no complaints ,has good energy level and is sleeping well. Patient has been compliant with instructions. Current medication use: no ambar End: 29-Mar-2007 9:20 e effects ,compliant with dosing regimen and considered effective by patient. Patient sleeps 7 hours per night. Impact of disease: emotional impact-mild. Nutrition: balanced diet. The medical issues the patient is following up for include asthma ,blood sugar issues ,cardiac issues ,high blood pressure ,high cholesterol ,kidney problems and other (IBS). Note for Follow up for chronic medical issues: still have pain in left colon--use levibid helps Encounter Diagnosis: Hyperglycemia (790.6), Coronary Artery Disease (414.00), Irritable bowel syndrome (564.1), Hypercholesterolemia (272.0), Colon Polyps, History of (V12.72), OTHER NONSPECIFIC FINDINGS ON EXAMINATION OF BLOOD, ELEVATED PROSTATE SPECIFIC ANTIGEN (PSA) (790.93), Kidney stone (592.0), GERD (530.81), PNEUMONIA, ORGANISM UNSPECIFIED (486.), Asthma, unspecified type, without mention of status asthmaticus (493.90), Epigastric pain (789.06), SOB (786.05), Type II Diabetes,uncontrolled (250.02) [facility] Error Encounter On: 08-Mar-2007 9:54 [facility] End: 08-Mar-2007 14:34 Office Visit On: 16-Nov-2006 9:57 Encounter Reason: Follow up for chronic medical issues - The patient feels well with minor complaints ,has decreased energy level and is sleeping well. Patient has been compliant with instructions. Current medication use End: 16-Nov-2006 10:34 : no side effects ,compliant with dosing regimen and considered effective by patient. Patient sleeps 7 hours per night. Impact of disease: no overall impact. Nutrition: balanced diet. The medical issues the patient is following up for include blood sugar issues ,cardiac issues ,high blood pressure and high cholesterol. Note for Follow up for chronic medical issues: think kidney stone--pain in left c va into groin, had in past, has meds for it, kathie see him, drink alot fliuds, not pass yetEncounter Diagnosis: Type II Diabetes,uncontrolled (250.02), SOB (786.05), Coronary Artery Disease (414.00), Hypercholesterolemia (272.0), Irritable bowel syndrome (564.1), GERD (530.81), Colon Polyps, History of (V12.72), OTHER NONSPECIFIC FINDINGS ON EXAMINATION OF BLOOD, ELEVATED PROSTATE SPECIFIC ANTIGEN (PSA) (790.93), Kidney stone (592.0), Hyperglycemia (790.6), Epigastric pain (789.06) [facility] Office Visit On: 17-Aug-2006 9:04 Encounter Reason: Follow up for chronic medical issues - The patient feels well with minor complaints ,has good energy level and is sleeping well. Patient has been compliant with instructions. Current medication use: no End: 17-Aug-2006 9:28 side effects ,compliant with dosing regimen and considered effective by patient. Patient sleeps 7 hours per night. Impact of disease: emotional impact-mild. Nutrition: balanced diet. The medical issues the patient is following up for include blood sugar issues ,cardiac issues ,gastric reflux ,high blood pressure and high cholesterol. Note for Follow up for chronic medical issues: levibid helps pain must take, moving bowelsEncounter Diagnosis: Type II Diabetes,uncontrolled (250.02), BRONCHITIS, NOT SPECIFIED ACUTE OR CHRONIC (490.), SOB (786.05), Coronary Artery Disease (414.00), Hypercholesterolemia (272.0), Irritable bowel syndrome (564.1), GERD (530.81), Colon Polyps, History of (V12.72), PNEUMONIA, ORGANISM UNSPECIFIED (486.), Asthma, unspecified type, without mention of status asthmaticus (493.90), OTHER NONSPECIFIC FINDINGS ON EXAMINATION OF BLOOD, ELEVATED PROSTATE SPECIFIC ANTIGEN (PSA) (790.93) , Kidney stone (592.0), Hyperglycemia (790.6), Epigastric pain (789.06), Pre-operative examination, unspecified (V72.84) [facility] Office Visit On: 29-Jul-2006 11:49 Encounter Reason: Cough - The onset of the cough has been gradual. The cough is characterized as productive of mucoid sputum (yellow/brown/thick) and productive of blood-stained sputum. The amount of sputum produced is o End: 29-Jul-2006 12:32 ne cup per day. The cough occurs all the time (worse @ night). The symptoms are aggravated by supine posture and exercise, but not by smoking ,meals ,particular position ,exposure to dust ,exposure to p ollens or exposure to fumes. The symptoms have been associated with fever (this morning) ,headache (frontal) ,hoarseness and sore throat (coughing), while the symptoms have not been associated with dysp hagia ,dyspnea ,edema ,foreign body aspiration ,hemoptysis ,long history of smoking ,night sweats ,runny nose ,weight loss ,wheezing or heartburn. the color of the sputum is yellowish (brown/thick). Encounter Diagnosis: BRONCHITIS, NOT SPECIFIED ACUTE OR CHRONIC (490.), SOB (786.05) [facility] Office Visit On: 21-May-2006 8:10 Encounter Reason: Follow up for chronic medical issues - The patient feels well with no complaints. Patient has been compliant with instructions. Current medication use: no side effects. Patient sleeps 7 hours per night. End: 21-May-2006 8:43 Impact of disease: no overall impact. Nutrition: balanced diet. The medical issues the patient is following up for include asthma ,blood sugar issues ,cardiac issues ,gastric reflux ,high blood pressur e ,high cholesterol ,kidney problems (hx. kidney stone ) and other (IBS). Note for Follow up for chronic medical issues: not need albuterol alot, not use advair, lay down get it, epig pain pain better--levibid not work as well, quick acting Encounter Diagnosis: Hyperglycemia (790.6), Asthma, unspecified type, without mention of status asthmaticus (493.90), Irritable bowel syndrome (564.1), Coronary Artery Disease (414.00), Hypercholesterolemia (272.0), GERD (530.81), Kidney stone (592.0), Colon Polyps, History of (V12.72), OTHER NONSPECIFIC FINDINGS ON EXAMINATION OF BLOOD, ELEVATED PROSTATE SPECIFIC ANTIGEN (PSA) (790.93), Epigastric pain (789.06), Pre-operative examination, unspecified (V72.84), Type II Diabetes,uncontrolled (250.02) [facility] Office Visit On: 23-Apr-2006 8:57 Encounter Reason: Follow up for chronic medical issues - The patient does not feel well ,has good energy level and is sleeping well. Patient has been compliant with instructions. Current medication use: compliant with do End: 24-Apr-2006 6:59 sing regimen. Patient sleeps 6 hours per night. Nutrition: poor nutrition. The medical issues the patient is following up for include All identified problems below ,high cholesterol and other (IBS, Kind ey stones, colon chantale., high PSA, CAD ). Note for Follow up for chronic medical issues: surgery 05-06-06-urethral scar removed and bladder sx, see cardio , [ADDITIONAL REASON] Heartburn - The onset of the heartburn has been variable and has been occurring in an intermittent pattern for 20 years. The course has been increasing. The heartburn is characteriz ed as burning ,pressure and pain. The heartburn is described as being located in the epigastrium. The heartburn radiates to the epigastrium. The symptoms are aggravated by large meals. The symptoms are relieved by antacids. The symptoms have been associated with abdominal pain. Note for Heartburn: epig burning not feel like heart pains, no radiation, off and on 23 years, multiple EGD negative except HH, Juan in past, burning, 6/10, constant hours, try levsin help, no heartburn now, always bloating, constipated at time, go BM once every three days, worse with constipated, no increase SOB, had str ess 4-06, had this pain years more intense, see shereen, had PH monitor negaitve, PPI not help, not anxeity related, no nausea or vomiting, try zelnorm--not help bowels Encounter Diagnosis: Asthma, unspecified type, without mention of status asthmaticus (493.90), Irritable bowel syndrome (564.1), Coronary Artery Disease (414.00), Hypercholesterolemia (272.0), GERD (530.81), Kidney stone (592.0), Colon Polyps, History of (V12.72), OTHER NONSPECIFIC FINDINGS ON EXAMINATION OF BLOOD, ELEVATED PROSTATE SPECIFIC ANTIGEN (PSA) (790.93), PNEUMONIA, ORGANISM UNSPECIFIED (486.), Epigastric pain (789.06), Pre-operative examination, unspecified (V72.84), Hyperglycemia (790.6) [facility] Historical Summary On: 13-Apr-2006 14:55 [facility] End: 13-Apr-2006 15:08 Historical Summary On: 22-Jan-2006 14:54 [facility] End: 22-Jan-2006 15:03 [facility]/Chris Torre; jose c guarantor
--- OUTSIDE RECORDS SUMMARY | 2018-05-25 14:55 | XMS RPT_ITS | Continuity of Care Document ---
:1940 Author Organization [facility] Address [address] [facility] [address] [place] [address] Phone Care Team Providers Name Role Phone Tiajose Daiana SCHMITT Unavailable Howard Rogers Unavailable Jonh Faria MD Unavailable Jean-Pierre Adams-[place] Pickens Unavailable Unavailable Dr. Av Cantu Unavailable Dr. Ruddy Regan Unavailable Mehreen Solitario Unavailable Pancho Gonzalez Unavailable Long TECHNICAL INSTRUCTOR COURSE DEVELOPER, Lavinia L Unavailable Unavailable Slarb TECHNICAL INSTRUCTOR COURSE DEVELOPER, Staci Unavailable Unavailable Unavailable Unavailable Problems Name Dates Details Annual Medicare Physical WITH abnormal findings (Renamed from Encounter for general adult medical examination with abnormal findings) (Z00.01, V70.0) Status: Active Asthma without status asthmaticus or acute exacerbation (J45.909, 493.90) Comments: stablefrom 2-18, not using any binhalors now.Has cough, no SOB or wheeze. Status: Active Atherosclerosis of coronary artery (I25.10, 414.00) Comments: see susanne stable, 11/05/15, every 6 month,. stopped metoprolo because of dizziness and its improved stable on altace1-12 stent x 3CABG 2003No Cp or SOB Status: Active Back pain (M54.9, 724.5) Comments: history of disc problem, loss of height of L1, osteoarthritis, calcification of abd aortastill sleeping in recliner, follow up with Dr. Gonzalez ([facility]) Status: Active BMI 27.0-27.9,adult (Z68.27, V85.23) Status: [...] metoprolol by Dr Ellis 11/05/15 Status: Active Encounter for screening for malignant neoplasm of prostate (Renamed from Screening for prostate cancer) (Z12.5, V76.44) Status: Active Gait disturbance (R26.9, 781.2) Comments: old lacunar infarct on CT with parkinson like changes in gait etc, seen Angie been to PT. he is now on oxybutynin and help ? worsen this tried sinemet not thin helps. 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 Torres Status: Active Memory loss (R41.3, 780.93) Comments: 08-[address] Solitario show depression. [...] TIA (transient ischemic attack) (G45.9, 435.9) Comments: l Status: Active Tremor (R25.1, 781.0) Status: Active Urinary urgency (R39.15, 788.63) Comments: [...] QD for 0 days Refills: 0 Ordered:19-Oct-2008 VICENTA GongActive Escitalopram Oxalate 10 MG Oral Tablet 1 (one) Tablet qd for 0 days Quantity: 90 {Tablet} Refills: 3 Ordered:10-Sep-2017 Lorrie SCHMITT, Daiana Doyle CNP, Daiana Mcclain Start : 10-Sep-2017 Active Gas Relief Extra Strength 125 MG Oral Tablet Chewable 1 (one) Tablet Tablet bid prn for 0 days Quantity: 30 {Tablet} Refills: 0 Ordered:22-Jul-2017 Slarb MACKENZIE Staci Start : 24-Apr-2017 Active Omeprazole 40 MG Oral Capsule Delayed Release [address] QOD for 90 days Quantity: 180 {Capsule} Refills: 2 Ordered:07-Nov-2016 Lorrie DECONTAMINATION WORKER, Daiana Doyle CNP, Daiana Mcclain Start : 07-Nov-2016 Active Oxybutynin [...] {Tablet} Refills: 0 Ordered:19-Feb-2018 Lorrie SCHMITT, Daiana Doyle CNP, Daiana Mcclain Start : 19-Feb-2018 Active Zetia 10 MG Oral Tablet 1 QD for 0 days Refills: 0 Ordered:06-Dec-2015 Ilir Jacob MD Start : 06-Dec-2015 Active Actos 30 MG Oral Tablet 1 (one) Tablet QD for 30 days Quantity: 30 {Tablet} Refills: 0 Ordered:19-Jun-2017 Lorrie SCHMITT, Daiana Doyle CNP, Daiana Mcclain Start : 19-Jun-2017 End : [...] days Quantity: 28 {Tablet_ER_24HR} Refills: 0 Ordered:09-Apr-2011 Ciesa DECONTAMINATION WORKER, Daiana ECiesa DECONTAMINATION WORKER, Katalina Start : 09-Apr-2011 Inactive BIAXIN, 500MG (Oral Tablet) 1 Tablet bid for 14 days Quantity: 28 {Tablet} Refills: 0 Ordered:09-Apr-2011 Ciesa DECONTAMINATION WORKER, Daiana ECiesa DECONTAMINATION WORKER, Katalina Start : 09-Apr-2011 End : 23-Apr-2011 [...] 05-May-2013 End : 09-Dec-2013 Inactive Comments:thirty Ergocalciferol 89849 UNIT Oral Capsule 1 Capsule twice weekly [...] {Patch} Refills: 3 Ordered:17-Aug-2015 Lavinia Forrest LPN L Start : 16-Aug-2015 End : 17-Aug-2015 Inactive [...] days Quantity: 60 {Tablet} Refills: 0 Ordered:10-Oct-2016 Daiana Andrew CNP, CNP Katalina Start : 10-Oct-2016 End : 09-Nov-2016 Inactive [...] Unsure for 0 days Refills: 0 Ordered:06-Jan-2008 Jasmin Lzi End : 06-Jan-2008 Inactive SKELAXIN, 800MG (Oral [...] : 09-Jun-2013 Inactive Comments:take with food ZOSTAVAX, 55733GSX/0.65ML (Subcutaneous Solution Reconstituted) 1 (one) For Solution [...] days Quantity: 30 {Tablet} Refills: 11 Ordered:21-Jan-2017 Staci Wise LPN Start : 07-Nov-2016 End : 21-Jan-2017 Discontinued Cerefolin NAC 6-90.314-2-600 MG Oral Tablet 1 (one) Tablet daily for 0 days Quantity: 90 {Tablet} Refills: 3 Ordered:21-Jan-2017 Staci Wise LPN Start : 07-Nov-2016 End : 21-Jan-2017 Discontinued [...] days Quantity: 30 {Tablet} Refills: 0 Ordered:06-Dec-2015 Staci Wise LPN Start : 28-Aug-2015 End : 06-Dec-2015 Discontinued [...] days Quantity: 30 {Tablet} Refills: 0 Ordered:10-Oct-2016 Staci Wise LPN Start : 14-Apr-2014 End : 10-Oct-2016 Discontinued [...] Details 3 stents placed Completed Comments: 2009 [place] Angioplasty Completed Comments: 1989,1995 bladder surgery Completed Apr-2006 CAB Completed 1999 Comments: triple bypass Colonoscopy Completed Comments: [facility] 08-14-15 rpt 10 years EKG Completed Comments: 2014 Hiatal Hernia Completed 1989 Inguinal Hernia Completed [address] faria (volvulus) Completed 09-07 Retinal Surgery Completed Comments: left eye to remove blood clot March 2013 TURP Completed Jun-2007 Comments: kathie Cystoscopy, TURP (10-17-14) Date Value Details 24-Feb-2018 Cardiology Visit Report Result: Comments: See Note; NOTES: [facility] [address] [place], [place] [address] OFFICE VISIT Date of Service: 02/24/18 MR#: [id number] Acct: [id number] Name: SERVANDO TORRE ep #: [id number] : 1940 Provider: TALIB Francis Age/Sex: 78/M Location: [facility] Status: Signed HPI HPI Details: SERVANDO TORRE is a 78 M who presents to the office today for a cardiovascular out patient follow-up. He has a history of coronary artery disease status post bypass surgery in 2002 with an MACIAS to LAD, left radial to obtuse marginal, and SVG to PDA and successful angioplasty and stent ing to 75% stenosis of proximal LAD, proximal diagonal at the bifurcation, and successful atherectomy and successful stenting to 80% stenosis in mid first diagonal artery in April 2011. He also has a history of ischemic cardiomyopathy, which is resolved, hypertension, and hyperlipidemia. Pt. denies chest, arm, jaw, or neck discomfort. He states prior to cardiac intervention he generally felt ill. H is exercise tolerance is very minimal. Pt. denies symptoms of CHF, palpitations, near syncope, or syncopal episodes. Pt. denies edema or claudication issues. Pt. denies orthopnea, PND, or myalgia. He st ates lightheadedness and dizziness with position changes. Intake Vital Signs02/24/18 Height 5 ft 8 in 02/24/18 Weight: 186 lb 02/24/18 Body Mass Index (BMI) 28.3 02/24/18 Blood Pressure 98/56 L Intak e Visit Reasons: overdue for OV to refill meds/pt has dementia Shop Mechanic Required: No Accompanied by: Is patient in pain?: No Allergies iodine Allergy (Verified 02/24/18 13:39) Hives Penicillin s Adverse Reaction (Verified 02/24/18 13:39) Rash Medications Aspirin E.C. [Ecotrin] 81 mg PO DAILY@0800 09/15/13 [History Confirmed 02/24/18] Escitalopram Oxalate [Lexapro] 10 mg PO DAILY 09/15/13 [ History Confirmed 02/24/18] Pioglitazone [Actos] 30 mg PO DAILY 09/15/13 [History Confirmed 02/24/18] Donepezil HCl [Aricept] 10 mg PO QHS 02/27/16 [History Confirmed 02/24/18] Oxybutynin [Ditropan] 10 mg PO DAILY 02/27/16 [History Confirmed 02/24/18] ezetimibe 10 mg tablet 10 mg PO DAILY #90 tab 06/18/17 [Rx Confirmed 02/24/18] ramipril 5 mg capsule 5 mg PO DAILY #90 cap 07/28/17 [Rx Confirmed ] clopidogrel 75 mg tablet 75 mg PO DAILY #90 tab 02/24/18 [Rx Confirmed 02/24/18] docusate sodium 100 mg capsule 100 mg PO DAILY PRN cap 02/24/18 [History] Ejection fraction %: 60 to 64 PFSH Medic al History Pure hypercholesterolemia (Chronic) Atherosclerosis of [place] coronary artery of [place] heart without angina pectoris (Chronic) GERD (gastroesophageal reflux disease) (Chronic) DM2 (diabetes mellitus, type 2) (Chronic) CVA (cerebral vascular accident) (Resolved) CKD (chronic kidney disease) stage 3, GFR 30-59 ml/min (Chronic) Dementia (Chronic) Colonic volvulus (Acute) Mild intermittent as thma (Chronic) Nephrolithiasis (Chronic) History of Gerard's esophagus (Chronic) History of asthma (Chronic) History of irritable bowel syndrome (Chronic) Hypothyroidism (Chronic) Surgical History H istory of angioplasty (Chronic 11/06/89) 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) H/O percutaneous transluminal coronary angioplasty (Chronic 05/13/11) History of cardiac catheterization (Chronic 03/2002) Hist ory of colon resection (Resolved 09/15/13) History of hemorrhoidectomy (Resolved) History of right inguinal hernia repair (Resolved) History of squamous cell carcinoma excision (Resolved 10/23/11) Histo ry of tonsillectomy (Resolved) History of ureter stent (Resolved 07/2008) Family History Father CVA (cerebral vascular accident) Brother Heart disease Social History Smoking Status: Former smoker h ow long ago did patient quit smokin alcohol intake: current alcohol intake frequency: holidays/special occasions only Alcohol type: wine caffeine: Yes Type: coffee Number of servings: 3, carbonated beverages Number of servings: 2 ROS Const Const: Negative for fatigue, weakness, body ache, fever(s) or chills ENT ENT: Positive for dizziness Cardio Chest Pain: No Palpitations: No Edema: None Mus javon aches with walking: None Resp Respiratory: Negative for SOB with activity, SOB at rest, SOB orthopnea\SOB lying down or paroxysmal nocturnal dyspnea GI GI: Negative nausea, black,tarry stools, brigh t, red blood in stools or vomiting blood/hematemesis : Negative for hematuria or frequent nighttime urination/ nocturia Musc Musc: Negative for muscle aches/ myalgia Skin Skin: Negative non-healing lesions or rash Neuro Neuro: Positive for dizziness and lightheadedness; negative for weakness, near syncope, syncope or orthostatic symptoms Endo Endo: Negative for fatigue Allergy Allergy/Immunology: Negative for rash Cardiology Exam Const Appearance: cooperative, healthy appearing, comfortable and no acute distress Nutritional Appearance: average body habitus and well nourished Orientation: aler t, awake and oriented x3 Head Head: normal to inspection Ears: hearing grossly normal bilaterally Nose: external nose normal Face and Sinus: face symmetric Mouth: oral mucosae normal Eyes General: appea katelyn normal, both eyes and all related structures Eyelids: eyelids normal EOM: EOM intact bilaterally Neck Neck: no JVD and normal visual inspection Carotids: normal carotid upstroke Chest Chest inspec tion: normal inspection of the chest and normal respiratory effort; negative cough Auscultation: Bilateral: Clear to Auscultation Cardio Rate: regular rate Rhythm: regular rhythm Heart sounds: S1 normal and S2 normal; negative rub, gallop or murmur GI GI: normal to inspection Neuro General: alert, awake, oriented x3 and CN's II-XI intact bilaterally Skin Skin: no rashes or lesions noted Extremities Pu lses: Normal: Right Posterior Tibial Pulse, Left Posterior Tibial Pulse, Right Radial Pulse, Left Radial Pulse Lower Extremity Edema: None: Bilateral Psych Psychological: normal affect Supplemental In fo Heart catheterization from April 2011 showed patent SVG to posterior descending artery, patent radial graft to first obtuse marginal artery, and patent MACIAS to LAD. This resulted in successful josh oplasty and stenting to 75 stenosis of proximal LAD and proximal diagonal at the bifurcation. He also underwent successful atherectomy and successful stenting to 80% stenosis in mid first diagonal arter y. Echocardiogram from February 2016 showed an estimated ejection fraction of 65%, mildly enlarged left atrium, moderate mitral annular calcification, extension of the mitral and a consultation onto th e posterior mitral leaflet, trivial mitral valve insufficiency, tricuspid valve insufficiency, aortic sclerosis, no stenosis, and an RVSP of 33 mmHg. Assessment AND Plan 1. Atherosclerosis of akut[place] c oronary artery of akut[place] heart without angina pectoris I25.10 MACIAS to LAD, aortocoronary left radial artery to obtuse marginal artery, SVG to PDA; Plan Patient denies any chest pain, arm pain, jaw pain , neck pain, shortness of breath, or fatigue suggestive of angina at this time. We will continue to monitor this. We will not make any medication regimen changes and will continue risk factor modificati on. 2. History of angioplasty Z98.62 Angioplasty and stenting to 70% stenosis in proximal LAD, angioplasty and stenting to proximal diagonal LAD at bifurcation, and atherectomy and stenting to 80% sten osis in mid first diagonal artery in April 2011. Plan He will continue current treatment plan as outlined above. He was reminded at his advanced age and history of falls in the past that from a stent ing perspective his Plavix could be discontinued. At this time patient has not had any side effects associated with it and will continue. 3. S/P CABG x 3 Z95.1 MACIAS to LAD, aortocoronary left radial ar jaren to obtuse marginal artery, SVG to PDA Plan His heart catheterization April 2011 showed patent SVG to posterior descending artery, patent radial graft to first obtuse marginal artery, and patent MACIAS to LAD. 4. Pure hypercholesterolemia E78.00 Plan This is being monitored by primary care provider. He will continue with current cholesterol-lowering medication. Plan Detail Other Medications New : Additional Comments Thank you for allowing us to participate in the patient's plan of care, if you have any questions please do not hesitate to call. This note was generated using a voice [employer] n system and there may be incorrect words, spelling, or punctuation that were not noted upon reviewing the office note prior to saving. Follow Up 12 Months (PFM) Coding Level of Care Code Off vis,est, level 3 Diagnoses Atherosclerosis of akut[place] coronary artery of ak[place] heart without angina pectoris I25.10 History of angioplasty Z98.62 S/P CABG x 3 Z95.1 Pure hypercholesterolemia E78.00 Coding Lev el of Care Code Off vis,est,level 3 Diagnoses Atherosclerosis of ak[place] coronary artery of [place] heart without angina pectoris I25.10 History of angioplasty Z98.62 S/P CABG x 3 Z95.1 Pure hypercholest erolemia E78.00 02/24/18 1511 <Electronically signed by Neris CLEARY> Date Neris CLEARY Cosigner Signature: Date __ (if applicable) CC: Daiana Andrew NP 10-Oct-2016 L/S Spine Min 4 Views Result: Comments: See Note; NOTES: [facility] Imaging Services [address] [place] [id number] Verdana 4d L/S Spine Min 4 Views MR#: [id number] Acct: [id number] Name: SERVANDO TORRE Rep #: [id number] : 1940 M 76 From: Toma Gary MD PCP: Daiana Andrew Status: REG CLI Study: L/S Spine Min 4 Views Date of Exam: 10/10/16 Exam# [id number] Ordering Dr: Daiana Andrew STUDY: X-RAY - LUMBAR SPINE REASON [...] Toma Gary MD at 16:08 EDT Tel [phone], Service support , F ax [phone] CC: Daiana Andrew Nurse Quality: Signed 22-Aug-2016 PT D/C Summary (1) Result: Comments: See Note; NOTES: [facility] Physical Therapy [facility] [address] [place] [address] Fax REHABILITATION SERVICES DISCHAR GE SUMMARY MR#: [id number] Acct: [id number] Name: SERVANDO TORRE Rep #: [id number] : 1940 76 From: Quang Spain DPT, OCS, CSCS Referring Dr.: Lenore Elder PAPER FINISHER Status: REG RCR Insurance: MMO MEDICARE [place] [...] exercise at home, will stay active at [employer] and with buddies. Not sure when follows [...] please feel free to call me at [phone]. Thank you for the referral of this patient. Sincerely, Quang rose, DPT, OC <Electronically signed by Quang Spain DPT, OCS, CSCS> 08/22/16 0934 CC: Daiana Andrew; Lenore Elder PAPER FINISHER EBG Signed 21-Aug-2016 D/C Summary- SP Result: Comments: See Note; NOTES: [facility] Speech Pathology [facility] [address] [place] [address] Fax REHABILITATION SERVICES DISCHAR GE SUMMARY MR#: [id number] Acct: [id number] Name: SERVANDO TORRE Rep #: [id number] : 1940 76 From: Reggie Joyner M.A., CCC-[facility] Referring DrMohan: Lenore Elder PAPER FINISHER Status: REG RCR Insurance: M [place] MEDICARE ST Discharge Summary - Discharged: Discharge: Servando Torre is discharged from [facility] speech therapy as of August 21, 2016. 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 All other strategies are [...] be sent to his referring physician. Other [place] G code- Current status CL Goal status CK, D/C status CJ. <Electronically signed by Reggie Joyner M.A., GULSHAN-[facility]> 08/21/16 1538 CC: Daiana Elder NP AJITH Signed 10-Jul-2016 Adult Re-Evaluation - SP Result: Comments: See Note; NOTES: [facility] Speech Pathology [facility] [address] [place], [place] [address] Fax [facility]#: [id number] Acct: [id number] Name: SERVANDO TORRE Rep #: [id number] : 1940 76 From: Reggie Joyner M.A., [facility] Referring DrMohan: Lenore Elder NP Insura nce: O MEDICARE Previous/Current Goals - Goals 1-5 Previous [...] Deficits. Date of Onset of Diagnosis: 02-28-16 Previo speech therapy: Yes Results: Hospital and Home health. Other Relevant Medical History/Diagnoses/Surgery: Prior CVA was approx. 3 years ago. 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 Objective Cog/Ling/Com - Te st Administered Nrtmmbblr-Bczrdxigdu-Osmptgiwxqqjf Assessment Administered: Yes Bmszyfqfa-Itrspwhwyx-Agmkgpiyeaghl Assessment: Cognitive Linguistic skills were evaluated using [...] is correct or counting change. Balancing Checkbook Eldred: Patient's completes his checkbook and he is [...] tasks. <Electronically signed by Reggie Joyner M.A., [facility]> 07/10/16 2996 CC: Daiana Edler NP AJITH Signed For Medicare only, by signing this I certify the plan of care. Physicians Signature Date 10-Jul-2016 OT D/C Summary Result: Comments: See Note; NOTES: [facility] Occupational Therapy [facility] [address] [place] [address] Fax REHABILITATION SERVICES DIS CHARGE SUMMARY MR#: [id number] Acct: [id number] Name: SERVANDO TORRE Rep #: [id number] : 1940 76 From: Madeleine Mosher Referring Dr.: Lenore Elder PAPER FINISHER Status: REG RCR Eval Date: Discharge D ate: HP - OT D/C Summary It has been my pleasure to treat SERVANDO TORRE under orders from JOHN Bruce, for the diagnosis of CVA for a total of 4 visit(s). Please see the following informa tion for a summary of their discharge status. - Objective Objective/Function: Right swatch maker 55#. left 45#. right lat 10#. left [...] please fell free to call me at [phone]. Thank you for the referral of this patient. Sincerely, Madeleine Mosher <Elect ronically signed by Madeleine Mosher > 07/10/16 1229 CC: Daiana Andrew; Lenore Elder PAPER FINISHER MK Signed 05-Jul-2016 Emergency Department Summary Result: Comments: See Note; NOTES: [facility] Medical Records Department [address] [place] [address] Emergency Department Summary MR#: [id number] Acct: [id number] Name: SERVANDO TORRE Rep #: [id number] : 1940 76 From: Clem Esparza DO [...] Melgoza IMPRESSION: Constipation. Clem Esparza DO T: NTS JOB: [id number] 07/05/16 1915 <Electronically signed by Clem Esparza DO> Date Blake Esparza DO Cosigner Signature (If Indicated): Date CC: Daiana Andrew Date Dictated: 07/05/161652 Date Transcribed: 07/05/161652 Nurse Quality: Signed 05-Jul-2016 Discharge Instruction Result: Comments: See Note; NOTES: [facility] Medical Records Department [address] [place] [address] Discharge Instruction 07/05/16 1642 MR#: [id number] Acct: [id number] Name: SERVANDO TORRE Rep #: [id number] : 1940 76 From: Clem Esparza DO [...] Primary Care Provider . Call [facility] ([phone]) or report to the closest Emergency Room. Call 911 if necessary. 07/05/161644 <Electronically signed by Clem Esparza DO> Date Clem Esparza DO Cosigner Signature (If Indicated): Date CC: Daiana Andrew 05-Jul-2016 Abdomen Single View Result: Comments: See Note; NOTES: [facility] Imaging Services [address] [place] [address] Verdana 4d Abdomen Single View MR#: [id number] Acct: [id number] Name: SERVANDO TORRE Rep #: [id number] : 1940 M 76 From: Geronimo Farmer MD PCP: Daiana Andrew Status: PRE ER Study: Abdomen Single View Date of Exam: 07/05/16 Exam# [id number] Ordering Dr: Clem Esparza DO STUDY: X-RAY [...] MD at 16:17 EST , Service support [phone], CC: Daiana Andrew; Clem Esparza DO Nurse Quality: Signed 18-Jun-2016 OT D/C Summary Result: Comments: See Note; NOTES: [facility] Occupational Therapy [facility] [address] [place] [address]. [address] [place], [place] [address] Fax REHABILITATION SERVICES DIS CHARGE SUMMARY MR#: [id number] Acct: [id number] Name: SERVANDO TORRE Rep #: [id number] : 1940 76 From: Madeleine Mosher Referring DrMohan: Lenore Elder PAPER FINISHER Status: REG RCR Eval Date: Discharge D ate: HP - OT D/C Summary It has been my pleasure to treat SERVANDO TORRE under orders from JOHN Bruce, for the diagnosis of CVA for a total of 4 visit(s). Please see the following informa tion for a summary of their discharge status. - Objective Objective/Function: Right swatch maker 55#. left 45#. right lat 10#. left [...] please fell free to call me at [phone]. Thank you for the referral of this patient. Sincerely, Madeleine Mosher <Electronically signed by Madeleine Mosher > 06/18/16 1134 CC: Daiana Andrew; Lenore Elder NP MK Signed 24-May-2016 Sleep Study Report Result: Comments: See Note; NOTES: [facility] [address] [place] [address] Polysomnography MR#: [id number] Acct: [id number] Name: SERVANDO TORRE Rep #: [id number] : 1940 76 From: Tyler Escudero MD PCP: Daiana Andrew Status: REG CLI Ordering Dr.: Lenore Elder NP-C Date: 05/21/16 Sex: M C DATE OF SERVICE: 05/21/2016 SCORING RULES: Respiratory events were acquired and scored in accordance with the Recommended Standards and Specifications as outlined in the AASM Manual for the Scoring of Sleep and Associated Events ( most recent version). Please note that a reference to [facility] AHI in this report is consistent with the current Hypopnea definition according to Medicare Criteria and an AASM AHI reference is consistent with the current Hypopnea definition according to the AASM criteria and is recognized by [facility] as the RDI. PROCEDURE: The study was attended continuously by a guitar repair technician. Monitored parameters included left and right [...] body mass index of 28.2 and an [place] Sleepiness Scale score of 17. There is [...] be of benefit. Tyler Escudero MD T: NADEEM JOB: [id number] CC: Tyler zhang MD 47 4728/17 1227 <Electronically signed by Tyler Escudero MD> Date Tyler Escudero MD Co-signatu re (if applicable) Date Signed 22-May-2016 Adult Evaluation - SP Result: Comments: See Note; NOTES: [facility] Speech Pathology [facility] 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 Objective Cog/Ling/Com - Test Administered Psglawpad-Uwrxysmuaa-Alpabxprrxokx Assessment Administere d: Yes Iutnewduk-Elalliahza-Xxdzjrumdvebd Assessment: Cognitive Linguistic skills were evaluated using [...] to complete several tasks in any way. Ziyad barber's reports that pt's memory is worse than [...] of Therapy: Speech- Language Pathology - Other BOTTLE BLOWER Other BOTTLE BLOWER Current: CL - 60-79% Other BOTTLE BLOWER Goal: CK - 40-59% Education - Patient has Indicated that the Following Identified Educational Needs: Cognitively Impaired - Patient Instruction Patient Education: Diag nosis, Treatment Plan, Goals Person Taught: Patient, Family Teaching Method: Discussion Response to teaching: Verbalize understanding <Electronically signed by Reggie Joyner M.A., [facility]-BOTTLE BLOWER&amp ;#62; 05/22/16 0229 CC: Daiana Andrew; Lenore Elder PAPER FINISHER AJITH Signed For Medicare only, by signing this I certify the plan of care. Physicians Signature Date 22-May-2016 Inital Evaluation (1) - PT Result: Comments: See Note; NOTES: [facility] Physical Therapy [facility] [address] [place] [address]. [address] [place] [address] Fax REHABILITATION SERVICES INITIAL EVALUATION MR#: [id number] Acct: [id number] Name: SERVANDO TORRE Rep #: [id number] : 1940 76 From: Quang Spain DPT, OCS, CSCS Referring DrMohan: Lenore Elder PAPER FINISHER Status: REG RCR Insurance: O MEDICARE Patient's Visit Information SERVANDO TORRE is [...] may decide he wants to learn full [employer] [facility] workout with pics and then will need [...] Fairly sedentary prior to stroke. Retired from [employer]. No hobbies. No regular e xercise outside of gardening. Sleeps good, no pain. No recent falls. Dress and basic ADLs are OK. Walked a lap at [employer] for fitness prior to stroke. No steps [...] to be FAXED BACK to us at [phone] for Medicare purposes. Please let me know if there are questions or concerns regarding this plan of care. Physician Signature: Date: <Electronically signed by Quang Spain DPT , OCS, CSCS> 05/21/16 5157 CC: Daiana Andrew; Lenore Elder PAPER FINISHER EBG Signed For Medicare only, by signing this I certify the plan of care. Physicians Signature Date 22-May-2016 OT General Evaluation Result: Comments: See Note; NOTES: [facility] Occupational Therapy [facility] [facility]. [address] [place] [address] Fax REHABILITATION SERVICES INI TIAL EVALUATION MR#: [id number] Acct: [id number] Name: SERVANDO TORRE Rep #: [id number] : 1940 76 From: Madeleine Mosher Referring Dr.: Lenore Petika PAPER FINISHER Status: REG RCR Insurance: MMO MEDICA RE Eval Date: Patient's Visit Information SERVANDO TORRE is a 76 year old M, referred to Occupational Therapy by JOHN Bruce,, with a diagnosis of CVA. Date of Evaluation: 05/15/16 Occupat ional Therapist: Madeleine Mosher - Subjective Subjective: Pt seen for initial OT eval this date- states Gene had a CVA three years ago and another on Feb.27. states when Gene got up he was not able to speak clearly. Gene did have a fall the next day [...] assistance/supervision with most daily tasks. - Strength Talkback Host: Right 45# left 55# Lateral Pinch: Right [...] to evaluate your patient. For Medicare and Medicar e HMO plans, please review the plan of care and approve it. It will need to be FAXED BACK to us at [phone] for Medicare purposes. Please let me know if there are questions or concerns regarding t his plan of care. Physician Signature: Date: <Electronically signed by Madeleine Mosher > 05/16/16 1436 CC: Daiana Lorrie; Lenore Elder PAPER FINISHER MK Signed For Medicare only, by signing this I certify the plan of care. Physicians Signature Date 21-May-2016 Inital Evaluation (1) - PT Result: Comments: See Note; NOTES: [facility] Physical Therapy [facility] [address] [facility]. [address] [place] [address] Fax REHABILITATION SERVICES INITIAL EVALUATION MR#: [id number] Acct: [id number] Name: SERVANDO TORRE Rep #: [id number] : 1940 76 From: Quang Spain DPT, OCS, CSCS Referring Dr.: Lenore Elder PAPER FINISHER Status: REG RCR Insurance: MMO MEDICARE Patient's [...] may decide he wants to learn full [employer] general health workout with pics and then will need [...] Fairly sedentary prior to stroke. Retired from [employer]. No hobbies. No regular e xercise outside of gardening. Sleeps good, no pain. No recent falls. Dress and basic ADLs are OK. Walked a lap at [employer] for fitness prior to stroke. No steps [...] to be FAXED BACK to us at [phone] for Medicare purposes. Please let me know if there are questions or concerns regarding this plan of care. Physician Signature: Date: <Electronically signed by Quang Spain DPT , OCS, CSCS> 05/21/16 0730 CC: Daiana Andrew; Lenore Elder PAPER FINISHER EBG Signed For Medicare only, by signing this I certify the plan of care. Physicians Signature Date 16-May-2016 OT General Evaluation Result: Comments: See Note; NOTES: [facility] Occupational Therapy [facility] [address] [facility]. [address] [place] [address] Fax REHABILITATION SERVICES IN TIA EVALUATION MR#: [id number] Acct: [id number] Name: SERVANDO TORRE Rep #: [id number] : 1940 76 From: Madeleine Mosher Referring Dr.: Lenore Elder PAPER FINISHER Status: REG RCR Insurance: MMO MEDICA RE [...] assistance/supervision with most daily tasks. - Strength Talkback Host: Right 45# left 55# Lateral Pinch: Right [...] to evaluate your patient. For Medicare and [employer] e HMO plans, please review the plan of care and approve it. It will need to be FAXED BACK to us at [phone] for Medicare purposes. Please let me know if there are questions or concerns regarding t his plan of care. Physician Signature: Date: <Electronically signed by Madeleine Mosher > 05/16/16 1436 CC: Daiana Elder PAPER FINISHER MK Signed For Medicare only, by signing this I certify the plan of care. Physicians Signature Date 27-Feb-2016 Emergency Department Summary Result: Comments: See Note; NOTES: [facility] Medical Records Department [address] [place] [address] Emergency Department Summary 02/27/16 1025 MR#: [id number] Acct: [id number] Name: SERVANDO TORRE Rep #: [id number] : 1940 76 From: Venancio Frausto MD [...] or hematologic symptoms. 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 Physical Examination: [...] admit patient Emergency Department Course and Yas tment: Dr. Tyler Escudero who is on for [...] problems, contact your Primary Care Provider. Call [facility] ([phone]) or report to the closest Emergency Room. Call 911 if necessary. 06/12 1038 <Electronically signed by Venancio Frausto MD> Date Venancio Frausto MD Cosigner Signature (If Indicated): Date CC: Ilir Jacob; Tyler Escudero MD -Feb-2016 Brain/Head without Contrast Result: Comments: See Note; NOTES: [facility] Imaging Services [address] [place] [address] Verdana 4d Brain/Head without Contrast MR#: [id number] Acct: [id number] Name: SERVANDO TORRE Rep #: [id number] : 1940 M 76 From: Breezy Huynh DO PCP: Ilir Jacob Status: REG ER Study: Brain/Head without Contrast Date of Exam: 02/27/16 Exam# [id number] Ordering Dr: Venancio Frausto MD STUDY: CT [...] at 10:52 EDT Tel , Service support [phone], CC: Ilir Jacob; Venancio Frausto MD Nurse Quality: Signed 27-Feb-2016 Chest 1 View Result: Comments: See Note; NOTES: [facility] Imaging Services [address] [place] [address] Verdana 4d Chest 1 View MR#: [id number] Acct: [id number] Name: SERVANDO TORRE Rep #: [id number] : 1940 M 76 From: Breezy Huynh DO PCP: Ilir Jacob Status: REG ER Study: Chest 1 View Date of Exam: 02/27/16 Exam# [id number] Ordering Dr: Venancio Frausto MD STUDY: X-RAY [...] at 11:00 EDT Tel , Service support [phone], CC: Ilir Jacob; Venancio Frausto MD Nurse Quality: Signed 06-Jan-2015 Carotid Duplex Ultrasound Result: Comments: See Note; NOTES: [facility] Cardiovascular Services [address] [place] [address] Carotid Duplex Ultrasound 01/03/15 1303 MR#: [id number] Acct: [id number] Na me: SERVANDO TORRE Rep #: [id number] : 1940 74 From: Andre Buitrago MD Attending Dr: Kasey Aguiar MD Status: REG CLI Ordering Dr: Kasey Aguiar MD Date: 01/03/15 Location: CVS Sex: M C Admit leslye: Rt. Velocities/BP [...] the left vertebral artery. Procedure Carotid Duplex 04089. The exam was diagnostic. Exam performed in department. Interpretation Summary Mild (<50%) stenosis right extracranial internal carotid. Mild (<50%) stenosis le ft extracranial internal carotid. Flow within the vertebral arteries is antegrade bilaterally. Ordering Physician: Kasey Aguiar Performed By: DERIAN Epps 01/06/15 1710 Date Andre Buitrago MD CC: Kasey Aguiar MD Date Dictated: 01/03/15 1303 Date Transcribed: 01/06/15 1710 Nurse Quality: Signed 17-Oct-2014 Operative Report Result: Comments: See Note; NOTES: [facility] Medical Records Department [address] [place] [address] Operative Report MR#: [id number] Acct: [id number] Name: SERVANDO TORRE Rep #: [id number] : 1940 74 From: Stu Pantoja MD PCP: Kasey Aguiar MD Status: DEP [facility] DATE OF SERVICE: DATE OF SERVICE: October [...] exam showed a normal urethra with a 17-Austrian scope until we got to the strictures. [...] stream by Crede maneuver and then a 24-Austrian was placed with ease with a 10 mL balloon. The urine was fairly clear at this point. The patient was awakened and taken to recovery in stable c ondition. Stu Pantoja MD T: NTS JOB: [id number] 10/17/14 1315 <Electronically signed by Stu Pantoja MD> Date Stu palafox MD CC: Kasey Aguiar MD; Stu Pantoja MD Date Dictated: 10/13/141224 Date Transcribed: 10/13/141224 Nurse Quality: Signed 13-Oct-2014 Discharge Instruction Result: Comments: See Note; NOTES: [facility] Medical Records Department [address] [place] [address] Instructions for Home/Discharge Instructions 10/13/14 1228 MR#: [id number] ct: [id number] Name: SERVANDO TORRE Rep #: [id number] : 1940 74 From: Stu Pantoja MD PCP: Kasey Aguiar MD Status: REG [facility] Discharge Diet: No Restrictions - ENCOURAGE FLUIDS [...] Follow Up With: Viviana Pantoja J - [phone] When: SEE ME IN ABOUT 2 WKS, CALL SOON FOR APPT 10/13/14 6329 <Electronically signed by Stu Pantoja MD> Date Stu Pantoja MD CC: Kasey Aguiar MD 10-Oct-2014 12 Lead Electrocardiogram Result: Comments: See Note; NOTES: [facility] Cardiovascular Services [address] [place] [address] [address] - [facility] 10/05/14 0939 MR#: [id number] Acct: [id number] Name: SERVANDO TORRE Rep #: [id number] : 1940 74 From: Stu Melvin MD Attending Dr: Stu Pantoja MD Status: PRE [facility] Ordering Dr: Christian Ruano MD Date: 10/05/14 Location: [facility] Sex: M C Admitted: Test [place] son : Blood Pressure : / mmHG Vent. Rate : 052 BPM Atrial Rate : 052 BPM P-R Int : 132 ms QRS Dur : 090 ms QT Int : 464 ms P-R-T Axes : 031 -01 032 degrees QTc Int : 431 ms Sinus bradyca rdia Possible Left atrial enlargement Borderline ECG Confirmed by STU MELVIN MD ([id number]), news copy editor SARKIS MARTIN ([id number]) on 10/10/2014 2:59:36 PM Referred By: SAHARA PANTOJA Confirmed By:STU MOLINA MD 10/10/14 1459 Date Stu Melvin MD CC: Kasey Aguiar MD; Stu Melvin MD Date Dictated: 10/05/1439 Date Transcribed: 10/05/14938 Nurse Quality: Signed 26-Apr-2014 Abdomen Complete Result: Comments: See Note; NOTES: [facility] Imaging Services [address] [place] [address] Ultrasound Report MR#: [id number] Acct: [id number] Name: SERVANDO TORRE Rep #: [id number] : 1940 M 74 From: Jamie Dominguez DO PCP: Kasey Aguiar MD Status: REG CLI Study: Abdomen Complete Date of Exam: 04/26/14 Exam# [id number] Ordering Dr: Daiana Andrew STUDY: ABDOMINAL ULTRA [...] without secondary evidence of acute cholecystitis. Milena waters Signed: Jamie Dominguez DO at 10:28 EST Tel [phone], Service support [phone], CC: Daiana Andrew; Kasey Aguiar MD Nurse Quality: Signed 14-Apr-2014 PT Discharge Summary Result: Comments: See Note; NOTES: [facility] Physical Therapy [facility] [facility] [place] [address] Fax REHABILITATION SERVICES DISCHARGE SUMMARY MR#: [id number] Acct: [id number] Name: SERVANDO OTRRE Rep #: [id number] : 1940 74 From: Quang Spain Referring DrMohan: Jean-Pierre Adams Status: PRE RCR Eval Date: Discharge Lior e: DATE OF SERVICE: DIAGNOSES: Vertigo and imbalance. PHYSICIAN: Dr. Adams. DATE OF DISCHARGE: April 13, 2014. Servando Torre was seen in my office [...] physician. Sarahi Spain, PT T: NTS JOB: [id number] <Electronically signed by Quang Spain > 04/14/14 0648 CC: Signed 02-Feb-2014 Inital Evaluation - PT Result: Comments: See Note; NOTES: [facility] Physical Therapy [facility] [address] [place] [address]. [address] [place] [id number] Fax REHABILITATION SERVICES INITIAL EVALUATION MR#: [id number] Acct: [id number] Name: SERVANDO TORRE Rep #: [id number] : 1940 74 From: Quang Spain Referring DrMohan: Jean-Pierre Adams Status: REG RCR Insurance: [employer] MEDICA RE PPO Eval Date: DATE OF SERVICE: 02/01/2014 DIAGNOSIS: Vertigo. PHYSICIAN: Dr. Adams. SUBJECTIVE: Servando Torre is a 74-year-old male who is familiar to me as I have just treated him for imbalance from Dr. Aguiar. He was also referred during that time to Dr. Adams who has sent him for evaluation for vertigo. Gene has worked to the point with the [...] closed 30 seconds. He has negative bilateral [place] test, a negative roll test. Ocular motor [...] continue independently here as a member at [facility] and we have already extensively reviewed with [...] course of therapy. Quang Spain, PT T: [facility] JOB: [id number] <Electronically signed by Quang Spain > 02/02/14 0921 CC: Signed For Medicare only, by signing this I certify the plan of care. Physicians Signature Date 30-Jan-2014 PT Discharge Summary Result: Comments: See Note; NOTES: [facility] Physical Therapy [address] [place] [address] Fax REHABILITATION SERVICES DISCHARGE SUMMARY MR#: [id number] Acct: [id number] Name: SERVANDO TORRE Rep #: [id number] : 1940 73 From: Quang Spain Referring DrMohan: Kasey Aguiar MD Status: REG RCR Eval [...] exercises, which he will continue both at [facility] as well as [employer] member as well as at home for his [...] specialist. He has also seen neurologist, Dr. Adams who he states has sent him to [...] gait in 500 foot walk here at [facility] and be able to walk up and down the steps reciprocally. He does use the railing coming down the steps, he goes up the steps without need to use the railing. At this point, I have reviewed his appropriate exercise with him, which he is doing well. He will continue again as a [employer] member. His also works out here and I am discharging his current chart from physical therapy as he has met those goals and independent with [facility] exercise program, but likely will be evaluating for potential vertigo next week. Quang Spain, PT T: NADEEM JOB: [id number] <Electronically signed by Quang Spain > 01/30/14 0647 CC: Signed 15-Dec-2013 Inital Evaluation - PT Result: Comments: See Note; NOTES: [facility] Physical Therapy [facility] [address] [place] [address]. [address] [place], [place] [address] Fax REHABILITATION SERVICES INITIAL EVALUATION MR#: [id number] Acct: [id number] Name: SERVANDO TORRE Rep #: [id number] : 1940 73 From: Quang Spain Referring Dr.: Kasey Aguiar MD Status: REG R Insurance: [employer]NA [place] PPO Eval Date: DATE OF SERVICE: 12/14/2013 PHYSICIAN: [...] likes to go watch their sporting events. [facility] is a benefit of his and [...] and heel tapping shows maximal deficits, but lswv-jg-cnoz test is not terrible. Range of motion [...] therapy. Quang Spain, PT T: NTS JOB: [id number] <Electronically signed by Quang Spain > 12/15/13 0929 CC: Signed For Medicare only, by signing this I certify th e plan of care. Physicians Signature Date 15-Sep-2013 History & Physical Examination Result: Comments: [email or web address].[employer]/calculate-online/cardiology/yomvt-grnxesllqfjpb-gebhkxv-risk; NOTES: [facility] Medical Records Department [address] [place] [address] History and Physical 09/15/13 1159 MR#: [id number] Acct: [id number] Name: SERVANDO TORRE Rep #: [id number] : 1940 73 From: Ruddy Gonzalez MD [...] without any assistance. Lives with his family. Pas bela Medical History Past Medical History (Chronic Problems): [...] % 70.8 H Lymph % 15.4 L [place] % 12.2 H Eos % 1.2 Baso [...] Clarity Clear Urine pH 6.0 Ur Specific [place] 1.020 Urine Protein Negative Urine Glucose (UA) [...] arrest is 1%, assuming ASA class 3. http://[email or web address]/calculate-online/cardiology/tjgre-rzpfqrjgpjuwx-viedhsj-risk Plea se click on Import tab for link ; This result contains an attachment that could not be included. 15-Sep-2013 Chest 1 View (Portable) Result: Comments: See Note; NOTES: [facility] Imaging Services [address] [place] [address] Radiology Report MR#: [id number] Acct: [id number] Name: SERVANDO TORRE Rep #: [id number] : 1940 M 73 From: Cuba Hilton MD PCP: Kasey Aguiar MD Status: REG ER Study: Chest 1 View (Portable) Date of Exam: 09/15/13 Exam# [id number] Ordering Dr: Jean-Pierre Zamorano MD STUDY: X-RAY [...] Cuba Hilton MD at 11:38 EDT Tel [phone], Service sup port [phone], RAD/Chest 1 View (Portable) IMPRESSION: Stable lobe parenchymal changes at the left lung base. Electronically Signed: Cuba Hilton MD at 11:38 EDT Tel [phone], Service support [phone], CC: Kasey Aguiar MD; Jean-Pierre Zamorano MD Nurse Quality: Signed 15-Sep-2013 Abdomen/Pelvis without Cont Result: Comments: See Note; NOTES: [facility] Imaging Services [address] [place] [address] CAT Scan Report MR#: [id number] Acct: [id number] Name: SERVANDO TORRE Rep #: [id number] : 1940 73 From: Cuba Hilton MD PCP: Kasey Aguiar MD Status: REG ER Study: Abdomen/Pelvis without Cont Date of Exam: 09/15/13 Exam# [id number] Ordering Dr: Jean-Pierre Zamorano MD RUST DY: CT ABDOMEN AND PELVIS WITHOUT CONTRAST [...] by Cuba Hilton MD to Dr Zamorano, [facility] Physician, on 09/15/2013 10:46:55 (ET). Electronically Signed: Cuba Hilton MD at 10:39 EDT Tel [phone], Service support [phone], N.B. : The above i nformation has been verbally conveyed by Cuba Hilton MD to Dr Zamorano, Referring Physician, on 09/15/2013 10:46:55 (ET). CC: Kasey Aguiar MD; Jean-Pierre Zamorano MD Nurse Quality: Signed 15-Sep-2013 Brain/Head without Contrast Result: Comments: See Note; NOTES: [facility] Imaging Services [address] [place] [address] CAT Scan Report MR#: [id number] Acct: [id number] Name: SERVANDO TORRE Rep #: [id number] : 1940 M 73 From: Cuba Hilton MD PCP: Kasey Aguiar MD Status: REG ER Study: Brain/Head without Contrast Date of Exam: 09/15/13 Exam# [id number] Ordering Dr: Jean-Pierre Zamorano MD CALEB DY: [...] José Hilton MD at 10:26 EDT Tel [phone], Service support [phone], CC: Kasey Aguiar MD; Jean-Pierre Zamorano MD Nurse Quality: Signed Immunization Name Dates Details Pneumococcal conjugate vaccine, 13 valent, IM Comments: 1-15 given in office Family History Unknown Family Member Name Dates Details Family Members In General Comments: ETOH, Colon, prostate CA, DM, Emotrional, Heart/lung, HBP, high cholesterol, Ulcer disease Status: Active Social History Name Dates Details Caffeine Use Comments: 1 QD Status: Active 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 Status: Active Smoking Status Name Dates Details Former smoker Vital Signs Date Test Result Details :57 Temperature 96.9 f Comments: Method: Temporal Pulse 80 /min Comments: Pattern: Regular Respiration Rate 17 /min Comments: Pattern: Unlabored O2 SAT 93 % Comments: Room air BP Systolic 112 mm[Hg] Comments: Patient Position: Sitting; Cuff Location: Left Arm; Cuff Size: Standard BP Diastolic 68 mm[Hg] Comments: Patient Position: Sitting; Cuff Location: Left Arm; Cuff Size: Standard Weight 186.375 lb Height 69 in Body Mass Index Calculated 27.52 kg/m2 Body Surface Area Calculated 2 m2 :07 Temperature 97.6 f Pulse 55 /min Comments: [...] kg/m2 Body Surface Area Calculated 2.04 m2 10-Wit-457933:47 Temperature 97.5 f Pulse 72 /min Comments: [...] 0.00 cm Results Date Description Value Details 5-Vqa-985449:20 GLUCOSE (08487) Comments: PATIENT NOT FASTINGPERFORMED BY: [facility] Eieqdb3721 [facility] [id number] Glucose 113 mg/dL (Abnormal) Range: 65-99 :20 HGB A1C (86103) Comments: PATIENT NOT FASTINGPERFORMED BY: [facility] CenterQzz[facility]zd[facility]31 [facility] [id number] Hemoglobin A1c 6.0 % (Abnormal) Range: 4.8-5.6 Comments: . Pre-diabetes: 5.7 - 6.4 Diabetes: >6.4 Glycemic control for adults with diabetes: <7.0 62-Ebl-012583:14 Metabolic Panel, Comprehensive Comments: PATIENT WAS FASTINGPERFORMED BY: KADIE [facility] [id number] (22368) ALT (SGPT) 11 [iU]/L (Normal) Range: 0-44 [...] 0 days - 30 days 16 - 29 16 - 29 31 days - 1 [...] 8-27 Glucose 99 mg/dL (Normal) Range: 65-99 13-Nmq-544009:14 LIPID PANEL (88300) Comments: PATIENT WAS FASTINGPERFORMED BY: KADIE [place] [id number] LDL/HDL Ratio 2.1 {ratio} (Normal) Range: 0.0-3.6 Comments: LDL/HDL Ratio Men Women 1/2 Avg.Risk 1.0 1.5 Av g.Risk 3.6 3.2 2X Avg.Risk 6.2 5.0 3X Avg.Risk 8.0 6.1 LDL Cholesterol Calc 73 mg/dL (Normal) Range: 0-99 VLDL Cholesterol El 13 mg/dL (Normal) Range: 5-40 HDL Cholesterol 35 mg/dL (Abnormal) Triglycerides 67 mg/dL (Normal) Range: 0-149 Cholesterol, Total 121 mg/dL (Normal) Range: 100-199 40-Uvd-421761:16 Metabolic Panel, Comprehensive Comments: PATIENT NOT FASTINGPERFORMED BY: KADIE [facility] CampusIgqsav3246 [facility] [id number] ([id number]) ALT (SGPT) 18 [iU]/L (Normal) Range: 0-44 [...] 8-27 Glucose 111 mg/dL (Abnormal) Range: 65-99 69-Kzh-187121:16 MICROALBUMIN: CREATININE RATIO Comments: PATIENT NOT FASTINGPERFORMED BY: [facility]6370 [facility] [id number] (74695) AND (23625) Alb/Creat Ratio 4.1 {mg/g_creat} (Normal) Range: 0.0-30.0 Albumin, Urine 4.1 ug/mL (Normal) Creatinine, Urine 100.9 mg/dL (Normal) 81-Boq-852128:16 URINALYSIS (37943) Comments: PATIENT NOT FASTINGPERFORMED BY: [facility]6370 [facility] [id number] Microscopic Examination See below: (Normal) Comments: Microscopic was indicated and was performed. Nitrite, Urine Negative (Normal) Urobilinogen,Semi-Qn 0.2 mg/dL (Normal) Range: 0.2-1.0 Bilirubin Negative (Normal) Occult Blood Trace (Abnormal) Ketones Negative (Normal) Glucose Negative (Normal) Protein Negative (Normal) WBC Esterase Negative (Normal) Appearance Clear (Normal) Urine-Color Yellow (Normal) pH 6.5 (Normal) Range: 5.0-7.5 Specific [place] 1.017 (Normal) Range: 1.005-1.030 19-Ihq-663394:16 TSH (THYROID STIMULATING Comments: PATIENT NOT FASTINGPERFORMED BY: [facility]6370 [facility] [id number] HORMONE) (44356) TSH 5.190 {uIU/mL} (Abnormal) Range: 0.450-4.500 71-Rny-720808:16 HGB A1C (35589) Comments: PATIENT NOT FASTINGPERFORMED BY: [facility] [place] [address] [id number] Hemoglobin A1c 5.8 % (Abnormal) Range: 4.8-5.6 Comments: . Pre-diabetes: 5.7 - 6.4 Diabetes: >6.4 Glycemic control for adults with diabetes: <7.0 89-Vpa-439462:16 Microscopic Examination Comments: PATIENT NOT FASTINGPERFORMED BY: [facility]6370 [facility] [id number] Bacteria Few (Normal) Mucus Threads Present (Normal) Epithelial Cells (non renal) 0-10 {/hpf} (Normal) Range: 0 - 10 RBC 3-10 {/hpf} (Abnormal) Range: 0 - 2 WBC 0-5 {/hpf} (Normal) Range: 0 - 5 12-Pzy-355065:58 Metabolic Panel, Comprehensive Comments: Mar 2017; PATIENT WAS FASTINGPERFORMED BY: [facility]6370 [facility] [id number] (31878) ALT (SGPT) 13 [iU]/L (Normal) Range: 0-44 [...] Glucose, Serum 90 mg/dL (Normal) Range: 65-99 77-Uhk-081501:48 Blood Glucose , Office (47758) Comments: 5.8 Blood Glucose , Office 93 (Normal) 62-Hhy-777082:48 HgA1C , Office (55335) HgA1C , Office 5.8 % (Normal) Range: 4.6 - 7.1 :41 CBC, Platelets & Auto Diff Comments: PATIENT WAS FASTINGPERFORMED BY: KADIE [employer] [facility] [id number] (12072) Immature Grans (Abs) 0.0 {x10E3/uL} (Normal) Range: [...] 4.14-5.80 WBC 7.0 {x10E3/uL} (Normal) Range: 3.4-10.8 :41 MICROALBUMIN: CREATININE RATIO Comments: PATIENT WAS FASTINGPERFORMED BY: [place]ublin [place] [id number] (07465) AND (50715) Microalb/Creat Ratio 18.5 {mg/g_creat} (Normal) Range: 0.0-30.0 Microalbumin, Urine 40.1 ug/mL (Normal) Creatinine, Urine 216.4 mg/dL (Normal) :41 Metabolic Panel, Comprehensive Comments: PATIENT WAS FASTINGPERFORMED BY: KADIE i2i LogicAtlantiCare Regional Medical Center, Mainland CampusEuqhak6466 [facility] [id number] (66460) ALT (SGPT) 9 [iU]/L (Normal) Range: 0-44 [...] Glucose, Serum 76 mg/dL (Normal) Range: 65-99 43-Dwu-128707:41 LIPID PANEL (40786) Comments: PATIENT WAS FASTINGPERFORMED BY: [employer]6[address] [place] [id number] LDL/HDL Ratio 3.3 {ratio_units} (Normal) Range: 0.0-3.6 [...] (Normal) Range: 100-199 :23 HgA1C , Office (59150) Comments: 5.8 HgA1C , Office 5.8 % (Normal) Range: 4.6 - 7.1 :43 Urinalysis, Office (78397) UA - LEUKOCYTE ESTERASE Negative (Normal) UA - NITRITE Negative (Normal) URINE UROBILINGN STEPH TIMED Normal mg/dL (Normal) UA - PROTEIN 30 mg/dL (Normal) UA - PH 6 (Abnormal) UA - BLOOD Hemolyzed Moderate (Normal) UA - SPECIFIC GRAVITY 1.025 (Normal) UA - KETONES Negative mg/dL (Normal) UA - BILIRUBIN Small (Normal) UA - GLUCOSE Negative (Normal) :23 Blood Glucose , Office (34644) Blood Glucose , Office 89 (Normal) :24 HgA1C , Office (95347) HgA1C , Office 5.9 % (Normal) Range: 4.6 - 7.1 :24 Blood Glucose , Office (38797) Blood Glucose , Office 109 (Normal) :49 Bedside Glucose Comments: [facility] LaboratoryPoint of Outc[address] [address] BEDSIDE GLU 103 mg/dL (Normal) Range: 70-110 Comments: No Action RequiredMANAGEMENT OF PATIENT CARE PER NURSING PROTOCOL :15 Basic Metabolic Profile (BMP) Comments: 'TROP' Serial specimen #1, #2, #3, or #4: [facility] Obaukzdmlo[address] [place], [place], [id number] GAP 6 (Normal) Range: 5-15 CO2 30.0 [...] Range: 70-110 :15 CBC W/Diff, Automated Comments: [facility] [address]ib[address]pv[address] [place], [place], [id number] Absolute Lymph 1.51 {X10_3/ul} (Normal) Range: 0.83-4.51 [...] Range: 4.4-11.0 :15 Partial Thromboplast Time Comments: [facility] [address] [place], [address] PTT 29.3 s (Normal) Range: 24.1-36.2 :15 Prothrombin Time w/INR Comments: [facility] [address] [place], [address] INR 1.1 (Normal) PROTIME 13.4 s (Normal) Range: 11.7-14.9 :15 Troponin-I Comments: 'TROP' Serial specimen #1, #2, #3, or #4: 1W[facility] Z[address] [place], [address] TROPONIN-I < 0.02 ng/mL (Normal) Comments: TROPONIN-I EXPECTED VALUES <0.05 NEGATIVE 0.06 - 0.59 AT RISK OF AL > OR = 0.60 SUGGEST AL 2-Uzf-940382:32 PSA (PROSTATE SPECIFIC Comments: PATIENT WAS FASTINGPERFORMED BY: [facility]6370 [facility] [id number] ANTIGEN) (V76.44) Prostate Specific Ag, 1.8 ng/mL (Normal) Range: 0.0-4.0 Serum Comments: Dwllr ECLIA methodology. .According to the [place] [employer], Serum PSA shoulddecrease and remain [...] CREATININE RATIO Comments: PATIENT WAS FASTINGPERFORMED BY: [employer]70 mNectarCount includes the [facility] [id number] (78931) AND (55489) Microalb/Creat Ratio 4.2 {mg/g_creat} (Normal) Range: 0.0-30.0 Microalbumin, Urine 9.4 ug/mL (Normal) Creatinine, Urine 223.8 mg/dL (Normal) :32 VITAMIN B12 AND FOLATES Comments: PATIENT WAS FASTINGPERFORMED BY: [employer]ssDsign AB6370 mNectarCount includes the [facility] [id number] (15534) Folate (Folic Acid), Serum 8.2 ng/mL (Normal) Comments: A serum folate concentration of less than 3.1 ng/mL isconsidered to represent clinical deficiency. Vitamin B12 469 pg/mL (Normal) Range: 211-946 :32 CALCIFEDIOL (12960) Comments: PATIENT WAS FASTINGPERFORMED BY: ticketscriptlin6370 mNectarCount includes the [facility] [id number] Vitamin D, 25-Hydroxy 20.9 ng/mL (Abnormal) Range: 30.0-100.0 Comments: Vitamin D deficiency has been defined by the [place] ofMedicine and an Endocrine Society practice guideline as alevel of serum 25-OH vitamin D less than 20 ng/mL (1,2).The Endocrine Society went on to further define vitamin Dinsufficiency as a level between 21 and 29 ng/mL (2).1. IOM ([place] of Medicine). 2010. Dietary reference intakes for calcium and D. [place]: The National Academies Press.2. Juliette MF, Laura NC, Jocelin VELEZ, et al. Evaluation, treatment, and prevention of vitamin D deficiency: an Endocrine Society clinical practice guideline. JCEM. 2010; 96(7):1911-30. :32 TSH (THYROID STIMULATING Comments: PATIENT WAS FASTINGPERFORMED BY: [place] [id number] [facility] [id number] HORMONE) (36248) TSH 3.930 {uIU/mL} (Normal) Range: 0.450-4.500 :32 LIPID PANEL (14312) Comments: PATIENT WAS FASTINGPERFORMED BY: [facility]6370 [facility] [id number] LDL/HDL Ratio 3.6 {ratio_units} (Normal) Range: 0.0-3.6 [...] PANEL, COMPREHENSIVE Comments: PATIENT WAS FASTINGPERFORMED BY: [facility]6370 [facility] [id number] (96361) ALT (SGPT) 32 [iU]/L (Normal) Range: 0-44 [...] Glucose, Serum 98 mg/dL (Normal) Range: 65-99 5-Zce-009415:32 CBC, PLATELETS & AUT DIFF Comments: PATIENT WAS FASTINGPERFORMED BY: LabCoAtlantiCare [facility], Main[facility] CampusEfjuvo8049 [facility] [id number] (31618) Immature Grans (Abs) 0.0 {x10E3/uL} (Normal) Range: [...] (Normal) Range: 3.4-10.8 :18 HgA1C , Office (71682) HgA1C , Office 6.0 % (Normal) Range: 4.6 - 7.1 :18 Blood Glucose , Office (48312) Blood Glucose , Office 89 (Normal) :53 HgA1C , Office (79549) HgA1C , Office 6.2 % (Normal) Range: 4.6 - 7.1 :10 HgA1C , Office (83820) HgA1C , Office 5.7 % (Normal) Range: 4.6 - 7.1 :40 Blood Glucose , Office (53327) Blood Glucose , Office 88 (Normal) :40 HgA1C , Office (73187) HgA1C , Office 6.3 % (Normal) Range: 4.6 - 7.1 :23 Microscopic Examination Comments: PATIENT WAS FASTINGPERFORMED BY: [employer] Hzkisf5024 [facility] [id number] Bacteria Few (Normal) Mucus Threads Present (Normal) Crystal Type Calcium Oxalate (Normal) Crystals Present (Abnormal) Epithelial Cells (non renal) 0-10 {/hpf} (Normal) Range: 0 - 10 RBC 3-10 {/hpf} (Abnormal) Range: 0 - 2 WBC 6-10 {/hpf} (Abnormal) Range: 0 - 5 :23 CALCIFIDIOL (13105) VIT D 25 Comments: PATIENT WAS FASTINGPERFORMED BY: [employer] Wwjpii1581 [facility] [id number] Vitamin D, 25-Hydroxy 42.3 ng/mL (Normal) Range: 30.0-100.0 Comments: Vitamin D deficiency has been defined by the [place] ofMedicine and an Endocrine Society practice guideline as alevel of serum 25-OH vitamin D less than 20 ng/mL (1,2).The Endocrine Society went on to further define vitamin Dinsufficiency as a level between 21 and 29 ng/mL (2).1. IOM ([place] of Medicine). 2010. Dietary reference intakes for calcium and D. [place]: The National Academies Press.2. Juliette MF, Laura YOO, Jocelin VELEZ, et al. Evaluation, treatment, and prevention of vitamin D deficiency: an Endocrine Society clinical practice guideline. JCEM. 2010; 96(7):1911-30. 4-Dgo-341669:23 CBC with auto diff Comments: copy of all labs to Dr. melvin; PATIENT WAS FASTINGPERFORMED BY: LabCoAtlantiCare Regional Medical [facility], Main[facility] CampusEhbdhd6538 [facility] [id number] Information: [id number] (40194) Immature Grans (Abs) 0.0 {x10E3/uL} (Normal) Range: [...] 7.0 {x10E3/uL} (Normal) Range: 3.4-10.8 :23 TSH (42159) Comments: PATIENT WAS FASTINGPERFORMED BY: SojeansAtlantiCare Regional Medical Center, Mainland CampusStvudw8440 [facility] [id number] TSH 3.600 {uIU/mL} (Normal) Range: 0.450-4.500 :23 URINALYSIS, W/ MICRO (85461) Comments: PATIENT WAS FASTINGPERFORMED BY: Sojeans Aapwmt0204 [facility] [id number] Microscopic Examination See below: (Normal) Comments: Microscopic was indicated and was performed. Nitrite, Urine Negative (Normal) Urobilinogen,Semi-Qn 0.2 mg/dL (Normal) Range: 0.0-1.9 Bilirubin Negative (Normal) Occult Blood Negative (Normal) Ketones Negative (Normal) Glucose Negative (Normal) Protein Negative (Normal) WBC Esterase 1+ (Abnormal) Appearance Clear (Normal) Urine-Color Yellow (Normal) pH 6.0 (Normal) Range: 5.0-7.5 Specific [place] 1.024 (Normal) Range: 1.005-1.030 :23 METABOLIC PANEL, COMPREHENSIVE Comments: PATIENT WAS FASTINGPERFORMED BY: SojeansAtlantiCare Regional Medical Center, Mainland CampusAxczka7822 [facility] [id number] (04463) ALT (SGPT) 10 [iU]/L (Normal) Range: 0-44 [...] Glucose, Serum 98 mg/dL (Normal) Range: 65-99 9-Dzu-141570:23 LIPID PANEL (39476) Comments: PATIENT WAS FASTINGPERFORMED BY: LabCoAtlantiCare Regional Medical Center, Main[facility] CampusTxklmw3696 [facility] [id number] LDL/HDL Ratio 3.5 {ratio_units} (Normal) Range: 0.0-3.6 [...] Cholesterol, Total 190 mg/dL (Normal) Range: 100-199 60-Wdn-34947:53 HgA1C , Office (95384) HgA1C , Office 6.4 % (Normal) Range: 4.6 - 7.1 :53 Blood Glucose , Office (81032) Blood Glucose , Office 125 (Normal) :45 Culture, Urine Comments: Test performed at:[facility] [address] [place] [address] ; ordered by kathie ROMERO See Note (Normal) Comments: Urine CultureCulture exhibits no growth. :16 Bedside Glucose Comments: Test performed at:[facility] [address] [place] [address] BEDSIDE GLU 102 mg/dL (Normal) Range: 70-110 Comments: MANAGEMENT OF PATIENT CARE PER NURSING PROTOCOL :52 Basic Metabolic Profile (BMP) Comments: Test performed at:[facility] Uwwyftenwi[address] [place] [address] GAP 4 (Abnormal) Range: 5-15 CO2 29.0 [...] 7-18 GLU 98 mg/dL (Normal) Range: 70-110 00-Zcd-519777:52 CBC-Complete Blood Cnt No Diff Comments: Test performed at:[facility] [address] [place] [address] MPV 10.2 fL (Normal) Range: [...] 4.4-11.0 :52 Hemoglobin A1c Comments: Test performed at:[facility] [address]tf[address] [place], [place] [id number] HGB A1C 6.8 % (Abnormal) Range: 4.2-6.3 :23 HgA1C , Office (06048) HgA1C , Office 6.7 % (Normal) Range: 4.6 - 7.1 :23 Blood Glucose , Office (58908) Blood Glucose , Office 122 (Normal) Comments: fasting :42 Urinalysis, Office (92389) UA - LEUKOCYTE ESTERASE Negative (Normal) UA - NITRITE Negative (Normal) URINE UROBILINGN STEPH TIMED Normal mg/dL (Normal) UA - PROTEIN Negative mg/dL (Normal) UA - PH 6.0 (Normal) UA - BLOOD Negative (Normal) UA - SPECIFIC GRAVITY 1.030 (Abnormal) UA - KETONES Negative mg/dL (Normal) UA - BILIRUBIN Negative (Normal) UA - GLUCOSE Negative (Normal) :12 Urinalysis, Office (77290) UA - LEUKOCYTE ESTERASE Negative (Normal) UA - NITRITE Negative (Normal) URINE UROBILINGN STEPH TIMED 2 mg/dL (Normal) UA - PROTEIN Negative mg/dL (Normal) UA - PH 6.0 (Normal) UA - BLOOD Negative (Normal) UA - SPECIFIC GRAVITY 1.030 (Abnormal) UA - KETONES Negative mg/dL (Normal) UA - BILIRUBIN Negative (Normal) UA - GLUCOSE Negative (Normal) :51 CALCIFEDIOL (76633) Comments: PATIENT NOT FASTINGPERFORMED BY: [facility]Co Pppbzp3074 [facility] [id number] Vitamin D, 25-Hydroxy 20.3 ng/mL (Abnormal) Range: 30.0-100.0 Comments: Vitamin D deficiency has been defined by the [place] of[place]icine and an Endocrine Society practice guideline as alevel of serum 25-OH vitamin D less than 20 ng/mL (1,2).The Endocrine Society went on to further define vitamin Dinsufficiency as a level between 21 and 29 ng/mL (2).1. IOM ([place] of Medicine). 2010. Dietary reference intakes for calcium and D. [place]: The National Academies Press.2. Juliette MF, Laura YOO, Jocelin VELEZ, et al. Evaluation, treatment, and prevention of vitamin D deficiency: an Endocrine Society clinical practice guideline. JCEM. 2010; 96(7):1911-30. :51 Hemoglobin Glyclated (HGB A1C) Comments: PATIENT NOT FASTINGPERFORMED BY: OssDsign AB6370 [facility] [id number] (63809) Hemoglobin A1c 6.2 % (Abnormal) Range: 4.8-5.6 Comments: . Increased risk for diabetes: 5.7 - 6.4 Diabetes: >6.4 Glycemic control for adults with diabetes: <7.0 :51 Metabolic Panel, Comprehensive Comments: PATIENT NOT FASTINGPERFORMED BY: zPerfectGift LabSaphorp Ogccku6649 [facility] [id number] (61700) ALT (SGPT) 10 [iU]/L (Normal) Range: 0-44 [...] 101 mg/dL (Abnormal) Range: 65-99 :51 TSH (92979) Comments: PATIENT NOT FASTINGPERFORMED BY: i2i LogicAtlantiCare Regional Medical Center, Mainland CampusFcschh9656 [facility] [id number] TSH 4.060 {uIU/mL} (Normal) Range: 0.450-4.500 :51 CBC, Platelets & Auto Diff Comments: PATIENT NOT FASTINGPERFORMED BY: LabCoAtlantiCare Regional Medical Center, Main[facility] CampusHnfwwd3594 [facility] [id number] Information: [id number] (64118) Immature Grans (Abs) 0.0 {x10E3/uL} (Normal) Range: [...] {x10E3/uL} (Normal) Range: 3.4-10.8 :58 Urinalysis, Office (65710) UA - LEUKOCYTE ESTERASE Negative (Normal) UA - NITRITE Negative (Normal) URINE UROBILINGN STEPH TIMED Normal mg/dL (Normal) UA - PROTEIN Negative mg/dL (Normal) UA - PH 6.0 (Normal) Comments: 5.5 UA - BLOOD Negative (Normal) UA - SPECIFIC GRAVITY 1.030 (Abnormal) UA - KETONES Negative mg/dL (Normal) UA - BILIRUBIN Negative (Normal) UA - GLUCOSE Negative (Normal) 75-Yjw-234534:09 CBC MPV 11.2 fL (Normal) Range: 6.2-12.0 [...] 4.6-6.2 WBC 5.8 K/mm3 (Normal) Range: 4.4-11.0 82-Vwx-481191:09 CMP GAP 6 (Normal) Range: 5-15 CO2 [...] 7-18 GLU 100 mg/dL (Normal) Range: 70-110 35-Eki-477315:09 LIPID VLDL 23 mg/dL (Normal) Range: 5-40 [...] CHOL 178 mg/dL (Normal) Comments: <200 mg/dL Gmcysmrwh042-681 mg/dL Borderline>240 mg/dL High Risk :09 MIACRE tMICROCREAT 8.3 {mg/g_CRE} (Normal) MIALB 15.5 mg/L (Normal) CREU 185.3 mg/dL (Normal) :42 HgA1C , Office (21389) HgA1C , Office 6.3 % (Normal) Range: 4.6 - 7.1 :42 Blood Glucose , Office (45721) Blood Glucose , 119 (Normal) Comments: fasting Office BGM 136 mg/dL (Abnormal) Range: 70-110 :58 Comments: Policy and Physicians Orders followedMANAGEMENT OF PATIENT CARE PER NURSING PROTOCOL :37 HgA1C , Office (86570) HgA1C , Office 6.2 % (Normal) Range: 4.6 - 7.1 :37 Blood Glucose , Office (66479) Blood Glucose , Office 107 (Normal) 88-Swd-415584:50 T4, FREE (THYROXINE) Comments: today; PATIENT NOT FASTINGPERFORMED BY: Sojeans Zvaxgk6473 [facility] [id number] BY: [employer] [id number] Information: [id number] (44790) T4,Free(Direct) 1.35 ng/dL (Normal) Range: 0.82-1.77 75-Ajw-009267:50 TSH (80504) Comments: today; PATIENT NOT FASTINGPERFORMED BY: zPerfectGift LabSapho Nvnhrb7739 Veloz [facility] [id number] BY: [employer] [id number] TSH 3.450 {uIU/mL} (Normal) Range: 0.450-4.500 51-Pex-526466:50 Vitamin B-12 Comments: today; PATIENT NOT FASTINGPERFORMED BY: Sojeans Odjmgw0448 Veloz [facility] [id number] BY: [employer] [id number] (cyanocobalamin) (24660) Vitamin B12 586 pg/mL (Normal) Range: 211-946 41-Mwb-544410:50 Methymalonic Acid, Serum Comments: today; PATIENT NOT FASTINGPERFORMED BY: LabKalkaska [facility] Center6370 [facility] [id number] BY: VeevaLatoya [place] 749917 [facility] [id number] (84987) Methylmalonic Acid, Serum 136 nmol/L (Normal) Range: [...] (PROSTATE SPECIFIC Comments: PATIENT WAS FASTINGPERFORMED BY: i2i LogicAtlantiCare Regional Medical Center, Mainland CampusQhojtl9955 [facility] [id number] ANTIGEN) (V76.44) Prostate Specific Ag, 1.6 ng/mL (Normal) Range: 0.0-4.0 Serum Comments: Wagner ECLIA methodology. .According to the [place] [employer], Serum PSA shoulddecrease and remain at undetectable levels after radicalprostatectomy. The AUA defines biochemical recurrence as an initialPSA value 0.2 ng/mL or greater followed by a subsequent confirmatoryPSA value 0.2 ng/mL or greater.Values obtained with d ifferent assay methods or kits cannot be usedinterchangeably. Results cannot be interpreted as absolute evidenceof the presence or absence of malignant disease. :21 LIPID PANEL (91679) Comments: copy to Dr. skinner; PATIENT WAS FASTINGPERFORMED BY: i2i LogicAtlantiCare Regional Medical Center, Mainland CampusWkvvrr3729 [facility] [id number] LDL/HDL Ratio 3.1 {ratio_units} (Normal) Range: 0.0-3.6 LDL Cholesterol Calc 124 mg/dL (Abnormal) Range: 0-99 HDL Cholesterol 40 mg/dL (Normal) Comments: According to ATP-III Guidelines, HDL-C >59 mg/dL is considered anegative risk factor for CHD. VLDL Cholesterol El 24 mg/dL (Normal) Range: 5-40 Cholesterol, Total 188 mg/dL (Normal) Range: 100-199 Triglycerides 118 mg/dL (Normal) Range: 0-149 :21 CALCIFEDIOL (03788) Comments: PATIENT WAS FASTINGPERFORMED BY: [employer] Bllurd4819 [facility] [id number] Vitamin D, 25-Hydroxy 21.9 ng/mL (Abnormal) Range: 30.0-100.0 Comments: Vitamin D deficiency has been defined by the [place] ofAultman Hospitalcine and an Endocrine Society practice guideline as alevel of serum 25-OH vitamin D less than 20 ng/mL (1,2).The Endocrine Society went on to further define vitamin Dinsufficiency as a level between 21 and 29 ng/mL (2).1. IOM ([place] of Medicine). 2010. Dietary reference intakes for calcium and D. [place]: The National Academies Press.2. Juliette MF, Laura YOO, Jocelin VELEZ, et al. Evaluation, treatment, and prevention of vitamin D deficiency: an Endocrine Society clinical practice guideline. JCEM. 2010; 96(7):1911-30. :21 MICROALBUMIN: CREATININE RATIO Comments: PATIENT WAS FASTINGPERFORMED BY: [employer] Luyxvn3653 [facility] [id number] (76463) AND (78149) Microalb/Creat Ratio 5.1 {mg/g_creat} (Normal) Range: 0.0-30.0 Creatinine, Urine 161.5 mg/dL (Normal) Range: 22.0-328.0 Microalbumin, Urine 8.3 ug/mL (Normal) Range: 0.0-17.0 :21 METABOLIC PANEL, COMPREHENSIVE Comments: PATIENT WAS FASTINGPERFORMED BY: [employer] Stluxv6044 [facility] [id number] (23022) ALT (SGPT) 15 [iU]/L (Normal) Range: 0-44 [...] MANUAL DIFF Comments: PATIENT WAS FASTINGPERFORMED BY: LabCoAtlantiCare Regional Medical Center, Main[facility] CampusBgzsij2833 [facility] [id number] Information: [id number] (81249) Immature Grans (Abs) 0.0 {x10E3/uL} (Normal) Range: [...] Range: 3.4-10.8 :27 Blood Glucose , Office (48995) Blood Glucose , Office 108 (Normal) :27 HgA1C , Office (34636) HgA1C , Office 6.3 % (Normal) Range: 4.6 - 7.1 :55 CALCIFEDIOL (51190) Comments: PATIENT NOT FASTINGPERFORMED BY: LabCoAtlantiCare Regional [facility] Center, Main[facility] CampusUngdlq3264 [facility] [id number] Information: [id number] Vitamin D, 25-Hydroxy 11.4 ng/mL (Abnormal) Range: 30.0-100.0 Comments: Vitamin D deficiency has been defined by the [place] ofMedicine and an Endocrine Society practice guideline as alevel of serum 25-OH vitamin D less than 20 ng/mL (1,2).The Endocrine Society went on to further define vitamin Dinsufficiency as a level between 21 and 29 ng/mL (2).1. IOM ([place] of Medicine). 2010. Dietary reference intakes for calcium and D. [place]: The National Academies Press.2. Juliette MF, Laura NC, Jocelin VELEZ, et al. Evaluation, treatment, and prevention of vitamin D deficiency: an Endocrine Society clinical practice guideline. JCEM. 2010; 96(7):1911-30. :34 HgA1C , Office (58764) HgA1C , Office 6.4 % (Normal) Range: 4.6 - 7.1 :34 Blood Glucose , Office (51764) Blood Glucose , Office 96 (Normal) :40 HgA1C , Office (23521) Comments: 6.4 HgA1C , Office 6.4 % (Normal) Range: 4.6 - 7.1 :40 Blood Glucose , Office (38525) Comments: 117 Blood Glucose , Office 117 (Normal) :45 Urinalysis, Office (84815) UA - LEUKOCYTE ESTERASE Negative (Normal) UA - NITRITE Negative (Normal) URINE UROBILINGN STEPH TIMED Normal mg/dL (Normal) UA - PROTEIN Negative mg/dL (Normal) UA - BLOOD Negative (Normal) UA - SPECIFIC GRAVITY 1.025 (Normal) UA - KETONES Negative mg/dL (Normal) UA - BILIRUBIN Negative (Normal) UA - GLUCOSE Negative (Normal) 6-Skc-208206:10 Urinalysis, Office (99720) UA - BILIRUBIN Negative (Normal) UA - BLOOD Non Hemolyzed Moderate (Normal) UA - GLUCOSE Negative (Normal) UA - KETONES Negative mg/dL (Normal) UA - LEUKOCYTE ESTERASE Small (Normal) UA - NITRITE Positive (Normal) UA - PH 7.0 (Normal) UA - PROTEIN 30 mg/dL (Normal) UA - SPECIFIC GRAVITY 1.025 (Normal) URINE UROBILINGN STEPH TIMED 2 mg/dL (Normal) 6-Pqk-228194:21 URINE RAH CULTURE (STEPH Comments: PATIENT NOT FASTINGPERFORMED BY: [facility] Oynvxo6412 [facility] [id number] Information: SRC:UR [id number] COL COUNT) (15423) Antimicrobial MIHEAD (Normal) Comments: S = Susceptible; [...] mL (Normal) Urine Final report Culture,Comprehensive (Normal) 79-Azu-983880:36 CULTURE, SPUTUM (74123) Comments: PATIENT NOT FASTINGPERFORMED BY: LabCoAtlantiCare [facility], Main[facility] CampusQftddc9248 [facility] [id number] Information: SRC:[facility] [id number] Result 1 RRF (Normal) Comments: Routine respiratory diamond Lower Respiratory Culture Final report (Normal) :39 FEMUR,2 VIEWS Radiology Report See Note (Normal) Comments: CLINICAL:Male, 70 years old. The patient presents with right leg pain. X-RAY EXAMINATION - RIGHT FEMUR TECHNIQUE:Five views of the femur. COMPARISON:None. FINDINGS:Normal visualized femur. Normal visua lized soft tissue structure. IMPRESSION:Normal x-ray examination of the femur. Dictated on 09/16/10944 by Lida CAMPBELL,Robynribed on 09/16/101111 by ITS IMPORTSign by Dre [...] tibia and fibula. Dictated on 09/16/10944 by Hans Hilton MDrieleTranscribed on 09/16/101116 by ITS IMPORTSign by Cuba Hilton MD on 09/16/101117 Sign by: Cuba Hilton MD :05 HgA1C , Office (56742) HgA1C , Office 6.5 % (Normal) Range: 4.6 - 7.1 :05 Blood Glucose , Office (62454) Blood Glucose , Office 140 (Normal) 2-Hhp-289314:15 CULTURE, SPUTUM (68457) Comments: PATIENT NOT FASTINGPERFORMED BY: [facility] Xhbxpj0096 [facility] [id number] Information: SRC:[facility] [id number] Result 1 MORACA (Normal) Comments: Moraxella (branhamella) catarrhalisHeavy growthBeta lactamase positive. Lower Respiratory Culture Final report (Normal) 10-Chu-170763:30 URINE RAH CULTURE (STEPH Comments: PATIENT NOT FASTINGPERFORMED BY: [facility] Myucbu9070 [facility] [id number] Information: SRC: [id number] COL COUNT) (07929) Antimicrobial MIHEAD (Normal) Comments: S = Susceptible; [...] Colonies/mL (Normal) Urine Final report (Normal) Culture,Comprehensive 55-Zba-736275:49 Urinalysis, Office (33318) UA - BILIRUBIN Negative (Normal) UA - BLOOD Non Hemolyzed Trace (Normal) UA - GLUCOSE Small (Normal) Comments: 100 UA - KETONES Negative mg/dL (Normal) UA - LEUKOCYTE ESTERASE Negative (Normal) UA - NITRITE Negative (Normal) UA - PH 7.0 (Normal) UA - PROTEIN Trace mg/dL (Normal) UA - SPECIFIC GRAVITY 1.025 (Normal) URINE UROBILINGN STEPH TIMED Normal mg/dL (Normal) 65-Vch-826804:48 Blood Glucose , Office (97581) Blood Glucose , Office 108 (Normal) 85-Dpt-392882:48 HgA1C , Office (04687) HgA1C , Office 6.7 % (Normal) Range: 4.6 - 7.1 :02 MICROALBUMIN: CREATININE RATIO Comments: PATIENT WAS FASTINGPERFORMED BY: Sojeans Cyakxw9593 [facility] [id number] (90172) AND (64957) Microalb/Creat Ratio 5.8 {mg/g_creat} (Normal) Range: 0.0-30.0 Creatinine, Urine 190.3 mg/dL (Normal) Range: 22.0-328.0 Microalbumin, Urine 11.0 ug/mL (Normal) Range: 0.0-17.0 :02 METABOLIC PANEL, COMPREHENSIVE Comments: PATIENT WAS FASTINGPERFORMED BY: Sojeans Gzglpe8859 [facility] [id number] (46803) Alkaline Phosphatase, S 55 [iU]/L (Normal) Range: [...] Glucose, Serum 122 mg/dL (Abnormal) Range: 65-99 17-Pvg-85851:02 LIPID PANEL (05666) Comments: PATIENT WAS FASTINGPERFORMED BY: [facility]CoAtl[facility]Care [facility] CampusGivjou9135 [facility] [id number] HDL Cholesterol 40 mg/dL (Normal) Comments: According to ATP-III Guidelines, HDL-C >59 mg/dL is considered anegative risk factor for CHD. LDL Cholesterol Calc 108 mg/dL (Abnormal) Range: 0-99 LDL/HDL Ratio 2.7 {ratio_units} (Normal) Range: 0.0-3.6 VLDL Cholesterol El 22 mg/dL (Normal) Range: 5-40 Cholesterol, Total 170 mg/dL (Normal) Range: 100-199 Triglycerides 111 mg/dL (Normal) Range: 0-149 67-Own-60168:02 CBC WITH MANUAL DIFF Comments: PATIENT WAS FASTINGPERFORMED BY: [facility]6370 [facility] [id number] Information: [id number] (96116) Baso (Absolute) 0.1 {x10E3/uL} (Normal) Range: 0.0-0.2 [...] Routine Comments: PATIENT NOT FASTINGPERFORMED BY: KADIE [employer] Rskxgr4918 [facility] HospitalAdWiredGood Hope Hospital [id number] Information: SRC:UR ADD [id number] Antimicrobial MIHEAD (Normal) Comments: S = Susceptible; [...] Routine Final report (Normal) :20 Urinalysis, Office (90597) UA - BILIRUBIN Negative (Normal) UA - BLOOD Hemolyzed Small (Normal) UA - GLUCOSE Negative (Normal) UA - KETONES Negative mg/dL (Normal) UA - LEUKOCYTE ESTERASE Moderate (Normal) UA - NITRITE Positive (Normal) UA - PH 7.0 (Normal) UA - PROTEIN Trace mg/dL (Normal) UA - SPECIFIC GRAVITY 1.025 (Normal) URINE UROBILINGN STEPH TIMED 2 mg/dL (Normal) :15 HgA1C , Office (41439) HgA1C , Office 6.9 % (Normal) Range: 4.6 - 7.1 :15 Blood Glucose , Office (40720) Blood Glucose , 109 (Normal) Office Potassium, Serum 4.9 mmol/L (Normal) Comments: PERFORMED BY: KADIE [employer] [facility] HospitalAdWiredGood Hope Hospital [id number] :56 Range: 3.5-5.2 :56 Lipase (42058) Comments: PATIENT WAS FASTINGPERFORMED BY: KADIE [employer] [facility] [id number] Lipase, Serum 53 U/L (Normal) Range: 0-59 :56 Amylase (14204) Comments: PATIENT WAS FASTINGPERFORMED BY: [place] [id number] [facility] [id number] Amylase, Serum 69 U/L (Normal) Range: 31-124 :56 CBC (Auto) (28641) Comments: PATIENT WAS FASTINGPERFORMED BY: [address] [id number] Platelets 189 {x10E3/uL} (Normal) Range: 140-415 RDW 13.7 % (Normal) Range: 11.7-15.0 MCH 29.3 pg (Normal) Range: 27.0-34.0 MCHC 33.4 g/dL (Normal) Range: 32.0-36.0 MCV 88 fL (Normal) Range: 80-98 Hematocrit 45.8 % (Normal) Range: 36.0-50.0 Hemoglobin 15.3 g/dL (Normal) Range: 12.5-17.0 RBC 5.22 {x10E6/uL} (Normal) Range: 4.10-5.60 WBC 7.5 {x10E3/uL} (Normal) Range: 4.0-10.5 :56 Metabolic Panel, Comments: PATIENT WAS FASTINGPERFORMED BY: [facility]6370 [facility] [id number] Information: [id number] DIFFICULT D RAW Comprehensive (54976) Alkaline Phosphatase, S 67 [iU]/L (Normal) Range: [...] Glucose, Serum 108 mg/dL (Abnormal) Range: 65-99 :56 Lipid Panel (01138) Comments: PATIENT WAS FASTINGPERFORMED BY: [facility]CoAtl[facility]Care [facility] CampusCwyanr8219 [facility] [id number] LDL Cholesterol Calc 124 mg/dL (Abnormal) Range: 0-99 LDL/HDL Ratio 3.3 {ratio_units} (Normal) Range: 0.0-3.6 Cholesterol, Total 178 mg/dL (Normal) Range: 100-199 HDL Cholesterol 38 mg/dL (Abnormal) Comments: According to ATP-III Guidelines, HDL-C >59 mg/dL is considered anegative risk factor for CHD. Triglycerides 78 mg/dL (Normal) Range: 0-149 VLDL Cholesterol El 16 mg/dL (Normal) Range: 5-40 :06 HgA1C , Office (73934) HgA1C , Office 5.8 % (Normal) Range: 4.6 - 7.1 18-Rsz-42823:05 Blood Glucose , Office (15620) Blood Glucose , Office 108 (Normal) 59-Qlu-687550:52 URINE RAH CULTURE-STEPH COL Comments: PATIENT WAS FASTINGPERFORMED BY: [facility]6370 [facility] [id number] COUNT (51983) Antimicrobial MIHEAD (Normal) Comments: S = Susceptible; [...] mL (Normal) Urine Final report (Normal) Culture,Comprehensive 68-Ets-248667:52 METABOLIC PANEL, COMPREHENSIVE Comments: PATIENT WAS FASTINGPERFORMED BY: i2i LogicAtlantiCare Regional Medical Center, Main[facility] CampusEnwneo0442 [facility] [id number] (09606) Alkaline Phosphatase, S 59 [iU]/L (Normal) Range: [...] Glucose, Serum 94 mg/dL (Normal) Range: 65-99 47-Zxx-062580:52 LIPID PANEL (63201) Comments: PATIENT WAS FASTINGPERFORMED BY: [facility] Motion[facility] Hospital [id number] LDL/HDL Ratio 2.7 {ratio_units} (Normal) Range: 0.0-3.6 LDL Cholesterol Calc 100 mg/dL (Abnormal) Range: 0-99 VLDL Cholesterol El 12 mg/dL (Normal) Range: 5-40 Cholesterol, Total 149 mg/dL (Normal) Range: 100-199 HDL Cholesterol 37 mg/dL (Abnormal) Comments: According to ATP-III Guidelines, HDL-C >59 mg/dL is considered anegative risk factor for CHD. Triglycerides 58 mg/dL (Normal) Range: 0-149 10-Vdm-008053:52 CBC WITH MANUAL DIFF Comments: PATIENT WAS FASTINGPERFORMED BY: [employer] AB6370 VelozCedar County Memorial HospitalAdWiredGood Hope Hospital [id number] Information: [id number] C C: ([id number]) Baso (Absolute) 0.1 {x10E3/uL} (Normal) Range: 0.0-0.2 [...] 4.10-5.60 WBC 5.1 {x10E3/uL} (Normal) Range: 4.0-10.5 :52 PSA (Prostate Specific Comments: PATIENT WAS FASTINGPERFORMED BY: [facility]6370 [facility] [id number] Antigen), Screening (31927) Prostate Specific Ag, 4.5 ng/mL (Abnormal) Range: 0.0-4.0 Serum Comments: Wagner ECLIA methodology..According to the [place] [employer], Serum PSA shoulddecrease and remain at undetectable levels after radicalprostatectomy. The AUA defines biochemical recurrence a s an initialPSA value 0.2 ng/mL or greater followed by a subsequent confirmatoryPSA value 0.2 ng/mL or greater.Values obtained with different assay methods or kits cannot be usedinterchangeably. Results cannot be interpreted as absolute evidenceof the presence or absence of malignant disease. :35 Urinalysis, Office (42435) UA - LEUKOCYTE ESTERASE Moderate (Normal) UA - NITRITE Positive (Normal) URINE UROBILINGN STEPH TIMED Normal mg/dL (Normal) UA - PROTEIN 30 mg/dL (Normal) UA - PH 7.0 (Normal) UA - BLOOD Hemolyzed Small (Normal) UA - SPECIFIC GRAVITY 1.020 (Normal) UA - KETONES Negative mg/dL (Normal) UA - BILIRUBIN Negative (Normal) UA - GLUCOSE Negative (Normal) :35 Blood Glucose , Office (83530) Blood Glucose , Office 101 (Normal) :35 HgA1C , Office (63227) HgA1C , Office 6.5 % (Normal) Range: [...] Range: 70-110 Comments: Policy and Physicians Orders oqnwvgqd86 :25 BMP CL 104 mmol/L (Normal) Range: [...] 11.6-14.6 WBC 4.4 K/mm3 (Normal) Range: 4.4-11.0 92-Hpl-511071:59 BEDSIDE GLU 135 mg/dL (Abnormal) Range: 70-110 Comments: Fasting Glucose result greater than or equal to 126 mg/dLsuggests DIABETES MELLITUS per A.D.A. criteria.Policy and Physicians Orders pflzefev01 39-Sll-037908:26 BEDSIDE GLU 93 mg/dL (Normal) Range: 70-110 Comments: Policy and Physicians Orders tdoczfuo82 59-Tvf-702836:57 BEDSIDE GLU 101 mg/dL (Normal) Range: 70-110 Comments: No Action Required0 24-Hcr-02555:46 BEDSIDE GLU 76 mg/dL (Normal) Range: 70-110 [...] <126 mg/dLsuggests IMPAIRED HOMEOSTASIS per A.D.A. criteria. :58 CBC HCT 35.9 % (Abnormal) Range: 40-54 HGB 12.0 g/dL (Abnormal) Range: 14.0-18.0 MCH 28.2 pg (Normal) Range: 27.0-32.0 MCHC 33.4 g/dL (Normal) Range: 32-36 MCV 84.6 fL (Normal) Range: 80-94 MPV 8.6 fL (Normal) Range: 6.5-12.0 PLT 168 K/mm3 (Normal) Range: 150-450 RBC 4.25 {M/mm3} (Abnormal) Range: 4.6-6.2 RDW 14.6 % (Normal) Range: 11.6-14.6 WBC 7.3 K/mm3 (Normal) Range: 4.4-11.0 50-Ogz-072741:42 BEDSIDE GLU 106 mg/dL (Normal) Range: 70-110 Comments: No Action Required0 67-Fbb-051684:47 BEDSIDE GLU 119 mg/dL (Abnormal) Range: 70-110 Comments: Fasting Glucose result from 110 to <126 mg/dLsuggests IMPAIRED HOMEOSTASIS per A.D.A. criteria.No Action Required0 56-Dqc-524180:19 BEDSIDE GLU 201 mg/dL (Abnormal) Range: 70-110 [...] 4.6-6.2 WBC 15.4 K/mm3 (Abnormal) Range: 4.4-11.0 85-Okb-780386:51 BEDSIDE GLU 282 mg/dL (Abnormal) Range: 70-110 Comments: Glucose result greater than or equal to 200 mg/dLsuggests DIABETES MELLITUS per A.D.A. criteria.No Action Required7 23-Hla-650122:05 BEDSIDE GLU 184 mg/dL (Abnormal) Range: 70-110 Comments: Fasting Glucose result greater than or equal to 126 mg/dLsuggests DIABETES MELLITUS per A.D.A. criteria.Policy and Physicians Orders [id number] 99-Tzi-802150:55 CULTURE, URINE URINE CULTURE See Note (Normal) Comments: Culture exhibits no growth. 70-Vzk-783963:55 ROUTINE UA LEUK ESTERASE SeeNote (Normal) Comments: [...] COLOR YELLOW (Normal) GLUCOSE, UR 2+ (Abnormal) 31-Wbi-353676:22 METABOLIC PANEL, COMPREHENSIVE Comments: PATIENT WAS FASTINGPERFORMED BY: LabCoAtlantiCare [facility], [facility] CampusGdixwx9249 [facility] [id number] (59437) A/G Ratio 1.3 (Normal) Range: 1.1-2.5 Alkaline [...] Glucose, Serum 104 mg/dL (Abnormal) Range: 65-99 27-Wlg-227961:22 LIPID PANEL (91725) Comments: PATIENT WAS FASTINGPERFORMED BY: i2i LogicAtlantiCare Regional Medical Center, Main[facility] CampusXegrog3528 [facility] [id number] LDL/HDL Ratio 2.9 {ratio_units} (Normal) Range: 0.0-3.6 Cholesterol, Total 171 mg/dL (Normal) Range: 100-199 HDL Cholesterol 40 mg/dL (Normal) Comments: According to ATP-III Guidelines, HDL-C >59 mg/dL is considered anegative risk factor for CHD. LDL Cholesterol Calc 117 mg/dL (Abnormal) Range: 0-99 Triglycerides 71 mg/dL (Normal) Range: 0-149 VLDL Cholesterol El 14 mg/dL (Normal) Range: 5-40 81-Rzf-737882:22 CBC WITH MANUAL DIFF Comments: PATIENT WAS FASTINGPERFORMED BY: i2i LogicAtlantiCare Regional Medical Center, Main[facility] CampusCuowvj7002 [facility] [id number] Information: [id number] (00668) Baso (Absolute) 0.1 {x10E3/uL} (Normal) Range: 0.0-0.2 [...] {x10E3/uL} (Normal) Range: 4.0-10.5 :29 Urinalysis, Office (38646) UA - LEUKOCYTE ESTERASE Moderate (Normal) UA - NITRITE Positive (Normal) URINE UROBILINGN STEPH TIMED 2 mg/dL (Normal) UA - PROTEIN 30 mg/dL (Normal) UA - PH 6.0 (Normal) UA - BLOOD Hemolyzed Trace (Normal) UA - SPECIFIC GRAVITY 1.020 (Normal) UA - KETONES Negative mg/dL (Normal) UA - BILIRUBIN Negative (Normal) UA - GLUCOSE Negative (Normal) :29 HgA1C , Office (65744) HgA1C , Office 6.4 % (Normal) Range: 4.6 - 7.1 :29 Blood Glucose , Office (68834) Blood Glucose , Office 131 (Normal) :24 CREAT CLR 24H U Comments: DATE STARTED 11/07/08, TIME STARTED 699DATE ENDED 11/08/08, TIME ENDED 0700 CREAT CLEARANCE 90 ml/min (Abnormal) Range: 100-200 EST GFR 46 mL/min (Abnormal) SERUM CREAT 1.6 mg/dL (Abnormal) Range: 0.8-1.3 UR COLLECT TIME 24.0 {HOURS} (Normal) UR TOTAL VOLUME 1200 mL (Normal) URINE CREAT 174.0 mg/dL (Normal) :24 PROU 24HR Comments: DATE STARTED 11/07/08, TIME STARTED 0700DATE ENDED 11/08/08, TIME ENDED 0700 24hr UR PROTEIN 173 {MG/24HR} (Abnormal) UR COLLECT TIME 24.0 {HOURS} (Normal) UR TOTAL VOLUME 1200 mL (Normal) URINE PROTEIN 14.4 mg/dL (Abnormal) 87-Ozo-71657:24 SERUM CRE & GFR Comments: DATE STARTED 11/07/08, TIME STARTED 0700DATE ENDED 11/08/08, TIME ENDED 699 CREAT,SERUM 1.6 mg/dL (Abnormal) Range: 0.8-1.3 EST GFR 46 mL/min (Abnormal) EST GFR - AA 56 mL/min (Abnormal) 7-Uds-037537:00 KIDNEY Radiology Report See Note (Normal) Comments: Exam Number: [id number] CLINICAL:68-year-old male with renal insufficiency. RENAL ULTRASOUND [...] 3.8 mg/dL (Normal) Range: 2.5-4.9 :54 SPE [id number] A/G RATIO 1.3 (Normal) Range: 0.7-2.0 ALBUMIN [...] Evidenceof monoclonal protein is not apparent.Performed At: [facility]Mod[facility], [facility], [place] [id number] M-SPIKE SeeNote g/dL (Normal) Comments: Result: Not Observed NOTE: Comment (Normal) Comments: Protein electrophoresis scan will follow via computer,mail, or latin professor delivery. PROTEIN,TOTAL 6.9 g/dL (Normal) Range: 6.0-8.5 :48 MICROALBUMIN: CREATININE RATIO Comments: PATIENT WAS FASTINGPERFORMED BY: [employer]70 [facility]Age[facility] [id number] (41770) AND (27977) Creatinine, Urine 109.3 mg/dL (Normal) Range: 22.0-328.0 Microalb/Creat Ratio 3.2 {ug/mg_creat} (Normal) Range: 0.0-30.0 Microalbumin, Urine 3.5 ug/mL (Normal) Range: 0.0-17.0 :48 METABOLIC PANEL, COMPREHENSIVE Comments: PATIENT WAS FASTINGPERFORMED BY: Fare Motionblin [place] [id number] (84885) A/G Ratio 1.4 (Normal) Range: 1.1-2.5 Albumin, [...] mmol/L (Normal) Range: 135-145 :48 LIPID PANEL (58970) Comments: PATIENT WAS FASTINGPERFORMED BY: KADIE [facility] Ufbfbo0700 [facility] [id number] Cholesterol, Total 179 mg/dL (Normal) Range: 100-199 [...] Range: 5-40 :48 CBC WITH MANUAL DIFF (97141) Comments: copy to Wink; PATIENT WAS FASTINGClinical Information: ADD DRAW FEE [id number] AD J0 5426 PERFORMED BY: LabCoAtl[facility]Care [facility] CampusHyqsxq5261 [facility] [id number] Baso (Absolute) 0.1 {x10E3/uL} (Normal) Range: 0.0-0.2 [...] (Normal) Range: 4.0-10.5 :23 HgA1C , Office (27009) HgA1C , Office 6.2 % (Normal) Range: 4.6 - 7.1 :23 Blood Glucose , Office (00298) Blood Glucose , 120 (Normal) Office :5 H. pylori Stool Ag, Negative (Normal) Comments: Clinical Information: SRC:ST PERFORMED BY: [employer] [id number] EIA 41-Bah-378199:56 HELICOBACTER PYLORI ANTIBODY Comments: PATIENT NOT FASTINGPERFORMED BY: LabSaphoAtlantiCare Regional Medical Center, Main[facility] CampusJkssvp6487 [facility] [id number] (28638) H. pylori IgG, Abs 3.2 U/mL (Abnormal) Range: 0.0-0.8 Comments: Negative <0.9 Indeterminate 0.9 - 1.0 Positive >1.0 :56 Metabolic Panel, Basic Comments: PATIENT NOT FASTINGClinical Information: ADD DRAW FEE [id number] ADD J 62728 PERFORMED BY: [employer] LabMetallkraft ASSijyvt[address] [place] [address] [id number] (80203) BUN 14 mg/dL (Normal) Range: 5-26 BUN/Creatinine Ratio 10 (Normal) Range: 8-27 Calcium, Serum 9.1 mg/dL (Normal) Range: 8.5-10.6 Carbon Dioxide, Total 25 mmol/L (Normal) Range: 20-32 Chloride, Serum 103 mmol/L (Normal) Range: 97-108 Creatinine, Serum 1.36 mg/dL (Abnormal) Range: 0.76-1.27 Glom Filt Rate, Est 52 mL/min/1.73 (Abnormal) Glucose, Serum 108 mg/dL (Abnormal) Range: 65-99 If -Macanese >59 mL/min/1.73 Comments: Note: Persistent reduction for 3 months or more in an eGFR<60 mL/min/1.73 m2 defines CKD. Patients with eGFR values>/=60 mL/min/1.73 m2 may also have CKD if evidence of persistentproteinur ia is (Normal) present. Additional information may be found [email or web address]. Potassium, Serum 4.6 mmol/L (Normal) Range: 3.5-5.2 Sodium, Serum 139 mmol/L (Normal) Range: 135-145 : HgA1C , Office (35307) HgA1C , Office 6.4 % (Normal) Range: 4.6 - 7.1 : Blood Glucose , Office (51547) Blood Glucose , Office 101 (Normal) :22 HgA1C , Office (11473) Comments: done>Wf. HgA1C , Office 6.4 % (Normal) Range: 4.6 - 7.1 :22 Blood Glucose , Office (90757) Comments: done>Wf. Blood Glucose , Office 107 [...] Range: 5-40 :42 Blood Glucose , Office (02141) Blood Glucose , Office 103 (Normal) :42 HgA1C , Office (56235) HgA1C , Office 6.7 % (Normal) Range: 4.6 - 7.1 :04 SPINE,LUMBAR (ROUTINE) Radiology Report See Note (Normal) Comments: Exam Number: [id number] MRI OF THE LUMBAR SPINE WITHOUT CONTRAST [...] mg/L (Normal) UR CREAT 156.3 mg/dL (Normal) :18 L/S SPINE,MIN 4 VIEWS (MT) Radiology Report See Note (Normal) Comments: Exam Number: [id number] LUMBAR SPINE WITH OBLIQUES, 5 VIEWS STATEMENTLow [...] ADRIÁN ALVARADO M.D. :18 HgA1C , Office (86425) HgA1C , Office 6.4 % (Normal) Range: 4.6 - 7.1 :18 Blood Glucose , Office (17193) Blood Glucose , Office 115 (Normal) 1-Luo-975647:09 CBCD,SMEAR DIFF Comments: DR. MELVIN ORDERED: LIPID/LIVER [...] 47-70 WBC 7.0 K/mm3 (Normal) Range: 4.4-11.0 :09 COMP METABOLIC Comments: DR. MELVIN ORDERED: LIPID/LIVER [...] T PROT 7.3 g/dL (Normal) Range: 6.4-8.2 :09 D BILI 0.14 mg/dL (Normal) Comments: DR. MELVIN ORDERED: LIPID/LIVER Range: 0.00-0.30 :09 LIPID Comments: DR. MELVIN ORDERED: LIPID/LIVER CHOL [...] mg/dL VLDL 25 mg/dL (Normal) Range: 5-40 :09 MICROALB:CRE UR Comments: DR. MELVIN ORDERED: LIPID/LIVER MALB:CREAT 13.3 {mg/g_CRE} (Normal) MICROALBUMIN,UR 15.4 mg/L (Normal) UR CREAT 115.5 mg/dL (Normal) :16 HgA1C , Office (55283) HgA1C , Office 6.5 % (Normal) Range: 4.6 - 7.1 :16 Blood Glucose , Office (11653) Blood Glucose , Office 119 (Normal) :01 HgA1C , Office (19046) HgA1C , Office 6.4 % (Normal) Range: 4.6 - 7.1 :01 Blood Glucose , Office (83434) Blood Glucose , Office 106 (Normal) :44 [...] SIGNED: SOFI VERDE 12/31/06:50 BMP Comments: COMMENTS: LEAH ARENAS 12/30/06 BUN 15 mg/dL (Normal) Range: 7-18 [...] (Normal) Range: 136-145 :50 CBCD Comments: COMMENTS: LEAH ARENAS 12/30/06 BASO% 0.4 % (Normal) Range: 0-1 [...] Range: 4.4-11.0 :50 COMPLETE UA Comments: COMMENTS: PAT,OR 12/30/06HOLD IN OE UNTIL SPECIMEN COLLECTED? (Y/N)* [...] 3.5-5.1 NA 133 mmol/L (Abnormal) Range: 136-145 74-Zmu-115043:26 ROUTINE UA BILIRUBIN URINE Inconcl (Normal) Comments: [...] 2.0 EU/dl (Abnormal) Range: 0.2 - 1.0 10-Pht-603853:02 ABDOMEN WITHOUT CONTRAST Radiology Report See Note (Normal) Comments: Exam Number: [id number] CT ABDOMEN AND PELVIS NONCONTRAST CLINICAL STATEMENTKidney [...] posterior left lung base with mid progression [id number]. Reported By: NERIS SIMON M.D. 55-Txj-879534:02 PELVIS WITHOUT CONTRAST Radiology Report See Note (Normal) Comments: Exam Number: [id number] CT ABDOMEN AND PELVIS NONCONTRAST CLINICAL STATEMENTKidney [...] posterior left lung base with mid progression ulrnw9827. Reported By: NERIS SIMON M.D. 04-Xof-435440:02 HgA1C , Office (73778) HgA1C , Office 6.6 % (Normal) Range: 4.6 - 7.1 15-Jsi-892471:02 Blood Glucose , Office (54177) Blood Glucose , Office 127 (Normal) 20-Cbx-312702:00 COLON BX P-COLBX (Normal) Comments: OPERATION Colonoscopy HISTORY Family hx of CA & polyps PRE-OPERATIVE DIAGNOSIS Polyps TISSUE SUBMITTED Polyp, rectum MICROSCOPIC DIAGNOSIS Rectum, polyp, biopsy: Hyperplastic polyp. SJ:meghan 09/25/06 GROSS DESCRIPTION Received is one container designated polyp rectum. The specimen consists of one irregular fragment of light gamino soft tissue that in aggregate measures 0.2 x 0.2 x 0.1 cm. The specimen is totally submitted in one cassette. / AM:meghan 09/24/06 TC:1 REPORT SIGNED: TIMOTHY PAREDES 09/25/06:04 HgA1C , Office (65205) HgA1C , Office 6.8 % (Normal) Range: 4.6 - 7.1 :04 Blood Glucose , Office (93896) Blood Glucose , Office 206 (Normal) :14 HgA1C , Office (88925) HgA1C , Office 8.0 % (Abnormal) Range: 4.6 - 7.1 :14 Blood Glucose , Office (67458) Blood Glucose , Office 117 (Normal) Plan of Care Name Dates Details Instructions Influenza vaccination declined (Renamed from Refused influenza vaccine) : Follow up in 3 months Indication: Influenza vaccination declined (Renamed from Refused influenza vaccine) Current nonsmoker (Renamed from Current non-smoker) : Eprescribed prescriptions (G8553) Indication: Current nonsmoker (Renamed from Current non-smoker) TIA (transient ischemic attack) : Eprescribed prescriptions [...] in 2 months for [facility] Indication: Nonsmoker Laceration of left hand : [...] : Follow up in 2 weeks with [facility] Indication: Fall Wheezing : Follow up if [...] 4 WEEKS Indication: Epigastric pain Planned Observations LIPID PANEL (75493)Indication: Hypertension On: 5-Was-241732:13 Request CBC & PLATELETS (AUTO) (81429)Indication: Hypertension On: 4-Xjf-698174:13 Request PSA (PROSTATE SPECIFIC ANTIGEN) (V76.44)Indication: Encounter for screening for malignant neoplasm of prostate (Renamed from Screening for prostate cancer) On: 9-Ycb-871446:12 Request TSH (54985)Indication: CKD stage G3a/A1, GFR 45 - 59 and albumin creatinine ratio <30 mg/g On: 4-Agc-157895:12 Request Metabolic Panel, Comprehensive (42891)Indication: CKD stage G3a/A1, GFR 45 - 59 and albumin creatinine ratio <30 mg/g On: 9-Ibd-814722:11 Request CBC, Platelets & Auto Diff (65995)Indication: Controlled diabetes mellitus with ophthalmic complication, without long-term current use of insulin On: :15 Request PSA (PROSTATE SPECIFIC ANTIGEN) (V76.44)Indication: Urinary urgency On: :06 Request MICROALBUMIN: CREATININE RATIO (04300) AND (54816)Indication: Controlled diabetes mellitus with ophthalmic complication, without long-term current use of insulin On: : Request VITAMIN B12 AND FOLATES ([id number])Indication: Controlled diabetes mellitus with ophthalmic complication, without long-term current use of insulin On: : Request CALCIFEDIOL ([id number])Indication: Controlled diabetes mellitus with ophthalmic complication, without long-term current use of insulin On: :06 Request LIPID PANEL ([id number])Indication: Controlled diabetes mellitus with ophthalmic complication, without long-term current use of insulin On: :06 Request METABOLIC PANEL, COMPREHENSIVE ([id number])Indication: Controlled diabetes mellitus with ophthalmic complication, without long-term current use of insulin On: :05 Request CBC, PLATELETS & AUT DIFF ([id number])Indication: Controlled diabetes mellitus with ophthalmic complication, without long-term current use of insulin On: :05 Request CALCIFIDIOL ([id number]) VIT D 25Indication: Vitamin D deficiency On: [id number] Request MICROALBUMIN: CREATININE RATIO ([id number]) AND ([id number])Indication: Controlled diabetes mellitus with ophthalmic complication, without long-term current use of insulin On: 67-Tlb-198116:48 Request METABOLIC PANEL, COMPREHENSIVE ([id number])Indication: Controlled diabetes mellitus with ophthalmic complication, without long-term current use of insulin On: 75-Qye-924143:47 Request LIPID PANEL ([id number])Indication: Controlled diabetes mellitus with ophthalmic complication, without long-term current use of insulin On: 66-Vfh-571149:47 Request CBC with auto diff ([id number])Indication: Controlled diabetes mellitus with ophthalmic complication, without long-term current use of insulin On: 17-Pxm-179158:47 Request METABOLIC PANEL, COMPREHENSIVE ([id number])Indication: Controlled diabetes mellitus with ophthalmic complication, without long-term current use of insulin On: :40 Request LIPID PANEL ([id number])Indication: Controlled diabetes mellitus with ophthalmic complication, without long-term current use of insulin On: :40 Request CBC with auto diff ([id number])Indication: Controlled diabetes mellitus with ophthalmic complication, without long-term current use of insulin On: :40 Request CALCIFIDIOL ([id number]) VIT D 25Indication: Vitamin D deficiency On: 25-Aug-20149:46 Request MICROALBUMIN: CREATININE RATIO ([id number]) AND ([id number])Indication: Controlled diabetes 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 On: :44 Request METABOLIC PANEL, COMPREHENSIVE ([id number])Indication: Controlled diabetes 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 On: :44 Request LIPID PANEL ([id number])Indication: Controlled diabetes 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 On: :44 Request MICROALBUMIN: CREATININE RATIO ([id number]) AND ([id number])Indication: Controlled diabetes 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 On: :44 Request CBC WITH MANUAL DIFF ([id number])Indication: Controlled diabetes 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 On: :44 Request CALCIFIDIOL ([id number]) VIT D 25Indication: Vitamin D deficiency On: 61-Woq-639387:25 Request MICROALBUMIN: CREATININE RATIO ([id number]) AND ([id number])Indication: Controlled diabetes mellitus with ophthalmic complication, without long-term current use of insulin On: :36 Request CBC (Auto) ([id number])Indication: Controlled diabetes mellitus with ophthalmic complication, without long-term current use of insulin On: :36 Request MICROALBUMIN: CREATININE RATIO ([id number]) AND ([id number])Indication: Controlled diabetes mellitus with ophthalmic complication, without long-term current use of insulin On: :36 Request METABOLIC PANEL, COMPREHENSIVE ([id number])Indication: Controlled diabetes mellitus with ophthalmic complication, without long-term current use of insulin On: :36 Request LIPID PANEL ([id number])Indication: Controlled diabetes mellitus with ophthalmic complication, without long-term current use of insulin On: :36 Request METABOLIC PANEL, COMPREHENSIVE ([id number])Indication: Hypercholesterolemia On: 91-Thi-640229:02 Request Comments: in three months (approximately) LIPID PANEL ([id number])Indication: Hypercholesterolemia On: 09-Bhy-446044:02 Request Comments: in three months (approximately) CALCIFEDIOL ([id number])Indication: Vitamin D deficiency On: 11-Ktw-389535:02 Request Comments: in three months (approximately) RAH CULTURE-OTHER ([id number])Indication: Urinary tract infection, site not specified On: 04-Frv-47269:34 Request Comments: urine MICROALBUMIN: CREATININE RATIO ([id number]) AND ([id number])Indication: Controlled diabetes 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 On: 09-Iav-578465:06 Request HELICO PYLORI, STOOL, INFCT ANTIGEN ([id number])Indication: Duodenitis On: 13-Lyp-399779:18 Request METABOLIC PANEL, COMPREHENSIVE ([id number])Indication: Controlled diabetes 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 On: :25 Request MICROALBUMIN: CREATININE RATIO ([id number]) AND ([id number])Indication: Controlled diabetes 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 On: :25 Request LIPID PANEL ([id number])Indication: Controlled diabetes 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 On: :25 Request CBC WITH MANUAL DIFF ([id number])Indication: Controlled diabetes 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 On: :25 Request Comments: in three months (approximately) MICROALBUMIN: CREATININE RATIO ([id number]) AND ([id number])Indication: Controlled diabetes 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 On: :56 Request METABOLIC PANEL, COMPREHENSIVE ([id number])Indication: Controlled diabetes 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 On: :56 Request LIPID PANEL ([id number])Indication: Controlled diabetes 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 On: :56 Request CBC WITH MANUAL DIFF ([id number])Indication: Controlled diabetes 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 On: :55 Request Comments: copy moodispaw in three months (approximately) MICROALBUMIN: CREATININE RATIO ([id number]) AND ([id number])Indication: Controlled diabetes 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 On: :35 Request METABOLIC PANEL, COMPREHENSIVE ([id number])Indication: Controlled diabetes 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 On: :35 Request LIPID PANEL ([id number])Indication: Controlled diabetes 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 On: :35 Request CBC WITH MANUAL DIFF ([id number])Indication: Controlled diabetes 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 On: :35 Request Comments: copy to [facility] on all labs MICROALBUMIN: CREATININE RATIO ([id number]) AND ([id number])Indication: Controlled diabetes 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 On: :42 Request LIPID PANEL ([id number])Indication: Controlled diabetes 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 On: :42 Request METABOLIC PANEL, COMPREHENSIVE ([id number])Indication: Controlled diabetes 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 On: :42 Request CBC WITH MANUAL DIFF ([id number])Indication: Controlled diabetes 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 On: :42 Request CBC (Auto) ([id number])Indication: Uncontrolled type II diabetes mellitus On: :19 Request Lipid Panel ([id number])Indication: Uncontrolled type II diabetes mellitus On: :19 Request Metabolic Panel, Comprehensive ([id number])Indication: Uncontrolled type II diabetes mellitus On: :19 Request Comments: in three months (approximately) URINALYSIS ([id number])Indication: Calcium kidney stone On: :30 Request Metabolic Panel, Basic ([id number])Indication: Calcium kidney stone On: 64-Gvj-313673:25 Request GLUCOSE, PP/2 HOUR ([id number])Indication: Hyperglycemia On: :43 Request GLUCAGON TOLERANCE TEST 2HR ([id number])Indication: Hyperglycemia On: :33 Request Planned Encounters Medical; 3 Month FU - On: 08-Jun-2018 13:30 [facility] Daiana Andrew CNP, CNP, Mary E Planned Procedures Radiology - Lumbar SpineBy: Lorrie On: 10-Oct-2016 Intent Daiana SCHMITT CNP, Mary E US DOPPLER CAROTID BILATERAL On: 29-Dec-2014 Intent ([id number])By: Kasey Aguiar MD Ultrasound - Abdomen CompleteBy: On: 25-Apr-2014 Intent Lorrie SCHMITT KatalinaSarahi Andrew CNP, Katalina Carotid DopplerBy: Kasey Aguiar MD On: 09-Dec-2013 Intent Eprescribed prescriptions ([id number])By: On: 29-Aug-2013 Intent Kasey Aguiar MD Eprescribed prescriptions ([id number])By: On: 28-Apr-2013 Intent Long TECHNICAL INSTRUCTOR COURSE DEVELOPER, Lavinia L Eprescribed prescriptions ([id number])By: On: 04-Oct-2012 Intent Long TECHNICAL INSTRUCTOR COURSE DEVELOPER, Lavinia L Pulse Oximetry ([id number])By: Lorrie SCHMITT, On: 09-Apr-2011 Intent KatlainaSarahi Andrew CNP, Katalina Aerosol Treatment ([id number])By: oLrrie On: 09-Apr-2011 Intent OSKAR Katalina Lorrie SCHMITT, Katalina PFT - CompleteBy: Kasey Aguiar MD On: 16-Sep-2010 Intent Radiology - Knee - RightBy: Stefania On: 16-Sep-2010 Intent Kasey CAMPBELL Radiology - Tib-Fib - RightBy: On: 16-Sep-2010 Intent Kasey Aguiar MD Radiology - Femur - RightBy: Stefania On: 16-Sep-2010 Intent Kasey CAMPBELL Spirometry ([id number])By: Stefania CAMPBELL, On: 16-Sep-2010 Intent Kasey Farrell EKG ([id number])By: Kasey Aguiar MD On: 16-Sep-2010 Intent Pulse Oximetry ([id number])By: Stefania CAMPBELL, On: 16-Sep-2010 Intent Kasey Farrell Aerosol Treatment ([id number])By: Lorrie On: 31-Jul-2010 Intent OSKAR KatalinaSarahi Andrew CNP, Katalina Ultrasound - RenalBy: Stefania CAMPBELL, On: 24-May-2009 Intent Kasey Farrell Spirometry ([id number])By: Stefania CAMPBELL, On: 19-Oct-2008 Intent Kasey Farrell Pulse Oximetry ([id number])By: Stefania CAMPBELL, On: 19-Oct-2008 Intent Kasey Farrell Radiology - Lumbar SpineBy: Stefania On: 04-Oct-2007 Intent Kasey CAPMBELL Toradol Injection, 30 mg ([id number])By: On: 23-Sep-2007 Intent Kasey Aguiar MD CT - AbdomenBy: Kasey Aguiar MD On: 16-Nov-2006 Intent Comments: kidney Aerosol Treatment ([id number])By: DAYAN On: 29-Jul-2006 Intent MARIOLA SCHMITT Comments: lungs cleared after treatment Pulse Oximetry ([id number])By: DAYAN SCHMITT, On: 29-Jul-2006 Intent MARIOLA Spirometry ([id number])By: Stefania CAMPBELL, On: 23-Apr-2006 Intent Kasey Farrell Pulse Oximetry ([id number])By: Stefania CAMPBELL, On: 23-Apr-2006 Intent Kasey Farrell Instructions Name Dates Details Current nonsmoker (Renamed from Current non-smoker) : How to access health information online Indication: Current nonsmoker (Renamed from Current non-smoker) Current nonsmoker (Renamed from Current non-smoker) : How to access health information online - Detail Indication: Current nonsmoker (Renamed from Current non-smoker) Current nonsmoker (Renamed from Current non-smoker) : Patient Instructions Indication: Current nonsmoker (Renamed from Current non-smoker) TIA (transient ischemic attack) : How to [...] use of insulin : DISCONTINUED - URINALYSIS ([id number]) Indication: Controlled diabetes mellitus with ophthalmic complication, [...] : Patient Instructions Indication: Back pain Encounters Office Visit On: 05-Mar-2018 13:54 Encounter Reason: Annual Medicare Exam - The patient had reviewed and updated the family history, medication/s, past medical history and social history. Yes the patient did have a mini mental status exam done today. The End: 05-Mar-2018 15:16 activities of daily living the patient needs help with are dressing, getting places out of walking distance, shopping for groceries, taking medications and meal preparation. The patient has had urinary incontinence, fallen in the past 6 months, put area rugs through house and put handrails in bathroom, but the patient has not had fecal incontinence, missed or ran out of medications to soon, driven in past 6 months, gotten lost or has a medalert necklace or bracelet. The patient has completed the following preventative measures: colonoscopy (Dr Regan - 2016). The patient does not have durable power of reception clerk or living will. The patient has noticed nothing from the geriatic depression scale. Other providers contributing to the patient's care are chin strap sewer (uriel), gastrologist (Dr Regan) and other: (eye exam Dr Torres). Note for Annual Medicare Exam: Feeling better. Vision test per Veena almost blind secondary to macular degeneration.[facility]: BMI 27.0-27.9,adult, Current nonsmoker (Renamed from Current non-smoker), Annual Medicare Physical WITH abnormal findings (Renamed from Encounter for general adult medical examination with abnormal findings), TIA (transient ischemic attack), Gas pain, CKD stage G3a/A1, GFR 45 - 59 and albumin creatinine ratio <30 mg/g, Memory loss, Tremor, Encounter for screening for malignant neoplasm of prostate (Renamed from Screening for prostate cancer), Hypertension, Influenza vaccination declined (Renamed from Refused influenza vaccine) [facility] Annotation/Addendum On: 28-Oct-2017 7:24 [facility] [...] ant and unable to speak, went to [facility], once squad got there he was able to answer. Was admitted to [facility]. Was told to take lipitor but did [...] with dosing regimen and considered effective by kayy thompson. Patient sleeps 8 hours per night. [...] completed the following pr eventative measures: colonoscopy (4-14 colonscopy good 2 years). The patient does have durable power of reception clerk and living will. The patient has noticed dropping activities and interests, getting bored , staying at home rather than doing something new or going out and lack of energy. Other providers contributing to the patient's care are chin strap sewer (see next week.), gastrologist (last saw 5-15) and urologist (new med ??for urgency but [...] PSA testing (04-28-13) and colonoscopy (August 2006 [facility] ). The patient does have durable power of reception clerk and living will. The patient has noticed dropping activities and interests, staying at home rather than doing something new or going out and having problems with memory than others. Other providers contributing to the patient's care are chin strap sewer (Dr. Melvin ), urologist (Dr. Pantoja ) [...] Follow up for chronic medical issues: abd augusto [facility] Diagnosis: Type II Diabetes,controlled (250.00), Type II Diabetes,uncontrolled (250.02), Hyperglycemia (790.6), Coronary Artery Disease (414.00), Irritable bowel syndrome (564.1), Hypercholesterolemia (272.0), OTHER NONSPECIFIC FINDINGS ON EXAMINATION OF BLOOD, ELEVATED PROSTATE SPECIFIC ANTIGEN (PSA) (790.93), GERD (530.81), SOB (786.05), Epigastric pain (789.06), Kidney stone (592.0), Colon Polyps, History of (V12.72), Chronic prostatitis (601.1), [facility] Office Visit On: 29-Mar-2007 [...] had this pain years more intense, see vivi, had PH monitor negaitve, PPI not help, [...] 14:54 [facility] End: 22-Jan-2006 15:03 [facility]; jose c guarantor
--- OUTSIDE RECORDS SUMMARY | 2018-05-25 14:56 | XMS RPT_ITS ---
:1940 Author Organization [facility] Support Name Relationship Address Phone ALEX TODDI NaturalDaughter [address] + [place] [address] R Unknown Unavailable Unavailable BERYL SHERIFF [address] + [address] [place] [address] [place] ЕКАТЕРИНА NaturalDaughter [address] + [place] [address] R Unknown Unavailable Unavailable BERYL SHERIFF [address] + [address] [place] [address] ALEX TODDI NaturalDaughter [address] + [place] [address] R Unknown Unavailable Unavailable BERYL SHERIFF [address] + [address] [place] [address] ALEX TODDI NaturalDaughter [address] + [place] [address] R Unknown Unavailable Unavailable BERYL SHERIFF [address] [place] [address] [place] ЕКАТЕРИНА NaturalDaughter [address] + [place] [address] R Unknown Unavailable Unavailable BERYL SHERIFF [address] + [address] [place] [address] [place] ЕКАТЕРИНА NaturalDaughter [address] + [place] [address] R Unknown Unavailable Unavailable BERYL SHERIFF [address] + [address] [place] [address] [place] ЕКАТЕРИНА NaturalDaughter [address] + [place] [address] R Unknown Unavailable Unavailable BERYL SHERIFF [address] + [address] [place] [address] [place], ЕКАТЕРИНА NaturalDaughter [address] + [place] [address] R Unknown Unavailable Unavailable BERYL SHERIFF [address] + [address] [place] [address] [place], ЕКАТЕРИНА NaturalDaughter [address] + [place] [address] R Unknown Unavailable Unavailable BERYL SHERIFF [address] + [address] [place] [address] [place], ЕКАТЕРИНА NaturalDaughter [address] + [place] [address] R Unknown Unavailable Unavailable BERYL SHERIFF [address] + [address] [place] [address] [place], ЕКАТЕРИНА NaturalDaughter [address] + [place] [address] R Unknown Unavailable Unavailable BERYL SHERIFF [address] + [address] [place] [address] [place], ЕКАТЕРИНА NaturalDaughter [address] + [place] [address] R Unknown Unavailable Unavailable BERYL SHERIFF [address] + [place] [address] [place], ЕКАТЕРИНА NaturalDaughter [address] + [place] [address] R Unknown Unavailable Unavailable BERYL SHERIFF [address] + [place] [address] Care Team Providers Name Role Phone RICHAR COMBS Admitting Unavailable RICHAR COMBS Attending Unavailable DOC BYERS JR Consulting Unavailable Daiana Andrew Attending Unavailable Ilir Jacob MD Referring Unavailable Daiana Andrew Consulting Unavailable Barbie Maki Attending Unavailable Daiana Andrew Primary Care Unavailable Barbie Maki Referring Unavailable Nico Ordoñez Attending Unavailable Nico Ordoñez Referring Unavailable [facility] Unavailable Ashelfah, Ghasem Admitting Unavailable Ashelfah, Ghasem Referring Unavailable Koram, Vy Maureen Attending Unavailable Ashelfah, Ghasem Admitting Unavailable Ashelfah, Ghasem Attending Unavailable Ashelfah, Ghasem Referring Unavailable [facility] Unavailable Ashelfah, Ghasem Consulting Unavailable Ashelfah, Ghasem Admitting Unavailable Orestes Oliver Attending Unavailable Ashelfah, Ghasem Referring Unavailable Ciesa, Daiana Primary Care Unavailable Orestes Oliver Consulting Unavailable Ashelfah, Ghasem Admitting Unavailable Koram, Vy Maureen Attending Unavailable Ashelfah, Ghasem Referring Unavailable [facility] Unavailable Koram, Vy Maureen Consulting Unavailable Dharmesh Francis Attending Unavailable Cia Daiana Referring Unavailable Ashelfah, Ghasem Admitting Unavailable Koram, Vy Maureen Attending Unavailable Ashelfah, Ghasem Referring Unavailable Ciesa, Daiana Primary Care Unavailable Koram, Vy Maureen Consulting Unavailable Ashelfah, Ghasem Admitting Unavailable Koram, Vy Maureen Attending Unavailable Ashelfah, Ghasem Referring Unavailable Ciesa, Daiana Primary Care Unavailable Koram, Vy Maureen Consulting Unavailable Ashelfah, Ghasem Admitting Unavailable Koram, Vy Maureen Attending Unavailable Ashelfah, Ghasem Referring Unavailable [facility] Unavailable Koram, Vy Maureen Consulting Unavailable Ashelfah, Ghasem Admitting Unavailable Koram, Vy Maureen Attending Unavailable Ashelfah, Ghasem Referring Unavailable Ciesa, Dainaa Primary Care Unavailable Koram, Vy Maureen Consulting Unavailable Caleb, Ravinder Chi Admitting Unavailable Caleb, Ravinder Chi Attending Unavailable Caleb, Ravinder Chi Referring Unavailable [facility] Unavailable Stu Dugan Attending Unavailable Nico Ordoñez Referring Unavailable Purpose Purpose PROBLEMS PROBLEMS DATE TYPE CONDITION / CODE ATTENDING STATUS SOURCE 05/17/2018 Unknown R53.81 - Other Caleb, Ravinder Chi Active [facility] malaise / Community R53.81(ICD-10) Hospital Repository 05/17/2018 Unknown R13.12 - Dysphagia, Caleb, Ravinder Chi Active [facility] oropharyngeal phase / Community R13.12(ICD-10) Hospital Repository 05/17/2018 Unknown R41.841 - Cognitive Caleb, Ravinder Chi Active [facility] communication deficit Community / R41.841(ICD-10) Hospital Repository 05/05/2018 Unknown I25.10 - MoodispaStu marley Active [facility] Atherosclerotic heart Community disease of [facility] coronary artery Repository without angina pectoris / I25.10(ICD-10) 05/05/2018 Unknown Z95.1 - Presence of Moodispaayaka Stu Active [facility] aortocoronary bypass Community graft / Z95.1(ICD-10) Hospital Repository 05/05/2018 Unknown R42 - Dizziness and Moodispaayaka Stu Active [facility] giddiness / Community R42(ICD-10) Hospital Repository 04/09/2018 Unknown R31.9 - Hematuria, Glynn, Barbie Active [facility] unspecified / M Community R31.9(ICD-10) Hospital Repository 09/14/2017 Active Transient cerebral KIMBERLY, Active [place] ischemic attack, RICHAR Clinic Other unspecified / [place] G45.9(ICD-10) Repository PROCEDURES PROCEDURES No Procedure Records FoundVITAL SIGNS VITAL SIGNS No Vital Signs Records FoundRESULTS RESULTS BEDSIDE GLUCOSE Collected: 05/14/2018 Status: F Source: [place] 11:31 AM [facility] REPOSITORY TYPE CODE TESTS RESULT OUT OF REFERENCE UNITS RANGE LAB L501.080 70-110 mg/dL High BEDSIDE GLU 126 Result Comment: MANAGEMENT OF PATIENT CARE PER NURSING PROTOCOL Performed By: #### L501.080 #### [facility] Point of Care [address] [place] [address] BEDSIDE GLUCOSE Collected: 05/14/2018 Status: F Source: [place] 6:30 AM [facility] REPOSITORY TYPE CODE TESTS RESULT OUT OF RANGE REFERENCE UNITS LAB L501.080 70-110 mg/dL Normal BEDSIDE GLU 91 Result Comment: MANAGEMENT OF PATIENT CARE PER NURSING PROTOCOL Performed By: #### L501.080 #### [facility] Point of Care [address] [place] [address] BEDSIDE GLUCOSE Collected: 05/13/2018 Status: F Source: [place] 6:23 AM [facility] REPOSITORY TYPE CODE TESTS RESULT OUT OF RANGE REFERENCE UNITS LAB L501.080 70-110 mg/dL Normal BEDSIDE GLU 84 Result Comment: MANAGEMENT OF PATIENT CARE PER NURSING PROTOCOL Performed By: #### L501.080 #### [facility] Point of Care [address] [place] [address] BEDSIDE GLUCOSE Collected: 05/12/2018 Status: F Source: [place] 6:29 AM [facility] REPOSITORY TYPE CODE TESTS RESULT OUT OF RANGE REFERENCE UNITS LAB L501.080 70-110 mg/dL Normal BEDSIDE GLU 78 Result Comment: MANAGEMENT OF PATIENT CARE PER NURSING PROTOCOL Performed By: #### L501.080 #### [facility] Point of Care [address] [place] [address] DISCHARGE SUMMARY Observed: 05/11/2018 Status: F Source: [place] 9:07 PM [facility] REPOSITORY [facility] Medical Records Department [address] [place] [address] Discharge Summary 05/11/18 2105 MR#: [id number] Acct: [id number] Name: SERVANDO SHERIFF Rep #: [id number] : 1940 78 From: Ravinder Ellis MD PCP: Daiana Andrew NP Status: ADM IN Location: [place] [address] Discharge Date and Diagnosis - Problem List Patient Problems: Active and Suspected Problems (Last Updated 04/24/18 @ 19:17 by George Pimentel MD) Fall (Acute) Dizziness (Acute) Debility (Acute) Orthostatic hypotension (Acute) Dehydration (Acute) Date of Admission: 04/30/18 Date of Discharge: 05/14/18 - Primary Discharge Diagnosis Active and Suspected Problems (Last Updated 04/24/18 @ 19:17 by George Pimentel MD) Fall (Acute) Dizziness (Acute) Debility (Acute) Orthostatic hypotension (Acute) Dehydration (Acute) - Secondary Discharge Diagnosis Chronic Problems (Last Updated 04/24/18 @ 19:17 by George Pimentel MD) Vascular dementia (Chronic) Stroke (Chronic) Coronary artery disease (Chronic) Diabetes mellitus (Chronic) Hyperlipidemia (Chronic) Hypothyroidism (Chronic) Chronic kidney disease (Chronic) Depression (Chronic) Overactive bladder (Chronic) History of CVA (cerebrovascular accident) (Chronic) Pure hypercholesterolemia (Chronic) Atherosclerosis of [place] coronary artery of [place] heart without angina pectoris (Chronic) MACIAS to LAD, aortocoronary left radial artery to obtuse marginal artery, SVG to PDA; GERD (gastroesophageal reflux disease) (Chronic) History of angioplasty (Chronic 11/06/89) Angioplasty and stenting to 70% stenosis in proximal LAD, angioplasty and stenting to proximal diagonal LAD at bifurcation, and atherectomy and stenting to 80% stenosis in mid first diagonal artery in April 2011. 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) MACIAS to LAD, aortocoronary left radial artery to obtuse marginal artery, SVG to PDA H/O percutaneous transluminal coronary angioplasty (Chronic 05/13/11) stent to diagonal 1 History of cardiac catheterization (Chronic 03/2002) 03/28,06/28 DM2 (diabetes mellitus, type 2) (Chronic) CKD (chronic kidney disease) stage 3, GFR 30-59 ml/min (Chronic) Dementia (Chronic) Mild intermittent asthma (Chronic) Nephrolithiasis (Chronic) Hospital Course and Treatment Imaging Results: 05/11/18 18:21 Xray Knee [Knee 1 or 2 Views] [RAD] Urgent 05/05/18 09:30 Diet: Regular Diet Is pt able to select menu?: No Diet Comments: SCOOP plate AND BUILT UP UTENTSILS Labs (Last 48 Hours) POC Glucose 87 75 Operations: None Procedures: None Summary of Care Provided: The patient is a 78 year old Male with below past medical history hospitalized for fall secondary to dizziness from orthostatic hypotension, complicated by acute on chronic kidney failure, admitted to TCU with debility, here for rehabilitation, strengthening, prior to discharge home with spouse. Discharge home with spouse, resident and resident spouse declined Home Health Care. Patient Problems: Active and Suspected Problems (Last Updated 04/24/18 @ 19:17 by George Pimentel MD) Fall (Acute) Dizziness (Acute) Debility (Acute) Orthostatic hypotension (Acute) Dehydration (Acute) - Physical Exam Vital Signs Temp Pulse Resp BP Pulse Ox 97.1 F L 63 16 116/64 100 05/11/18 15:16 05/11/18 15:16 05/11/18 15:16 05/11/18 15:16 05/11/18 15:16 Oxygen Delivery Method Room Air Weight: 85.531 kg Body Mass Index (BMI) 29.0 Finger Stick Blood Glucose 103 Intake and Output for Last 24 Hours Intake Total 660 / 660 840 / 840 720 / 720 Output Total 200 / 200 Balance 660 / 660 640 / 640 720 / 720 POC Glucose POC Glucose 75 Discharge Diet: No Restrictions Discharge Activity: Return to Normal Activity, May Shower, Use Walker Weight Bearing Status: Weight bearing as tolerated Call your doctor if you observe: Fever of 101 or Higher, Inability to urinate, Inability to have a bowel movement, Shortness of breath, Chest pain, Uncontrolled pain Home Medications: Medications to take at Discharge Aspirin E.C. [Ecotrin] 81 mg PO DAILY@0800 09/15/13 Escitalopram Oxalate [Lexapro] 10 mg PO DAILY 09/15/13 Pioglitazone [Actos] 30 mg PO DAILY 09/15/13 Donepezil HCl [Aricept] 10 mg PO QHS 02/27/16 Oxybutynin [Ditropan] 15 mg PO DAILY 02/27/16 docusate sodium 100 mg capsule 100 mg PO DAILY PRN cap 02/24/18 Clopidogrel Bisulfate [Plavix] 75 mg PO DAILY 04/30/18 Ezetimibe [Zetia] 10 mg PO DAILY 04/30/18 Ramipril 5 mg PO DAILY 04/30/18 Acetaminophen [Tylenol] 1,000 mg PO Q6H PRN tablet 05/11/18 Mineral Oil/Petrolatum,White [Eucerin] 1 applic TOPICAL DAILY@2200 jar 05/11/18 Primary Care Physician: Daiana Andrew NP-C [Primary Care Provider] - Please follow up with your Primary Care Physician in: 1 week. Please Follow Up With: Daiana Andrew NP-C Disposition: Home Minutes spent on discharge:: 30 Patient Condition:: Stable Medical Necessity - Tobacco Use Smoking Status: Former smoker Tobacco Use: Non-smoker Meaningful Use Info Meaningful Use Diagnoses (Choose all that apply): None applicable 05/11/182106 <Electronically signed by Ravinder Ellis MD> Date Ravinder Ellis MD Cosigner Signature (if applicable): Date CC: Daiana Andrew NP; Ravinder Ellis MD Signed DISCHARGE INSTRUCTION Observed: 05/11/2018 Status: F Source: [place] 9:05 PM [facility] REPOSITORY [facility] Medical Records Department [address] [place] [address] Instructions for Home/Discharge Instructions 05/11/18 4484 MR#: [id number] Acct: [id number] Name: SERVANDO SHERIFF Rep #: [id number] : 1940 78 From: Ravinder Ellis MD PCP: Daiana Andrew NP Status: ADM IN - Discharge Diagnoses Current Active Problems: Current Active and Chronic Problems (Last Updated 04/24/18 @ 19:17 by George Pimentel MD) Fall (Acute) Dizziness (Acute) Debility (Acute) Orthostatic hypotension (Acute) Dehydration (Acute) Vascular dementia (Chronic) Stroke (Chronic) Coronary artery disease (Chronic) Diabetes mellitus (Chronic) Hyperlipidemia (Chronic) Hypothyroidism (Chronic) Chronic kidney disease (Chronic) Depression (Chronic) Overactive bladder (Chronic) You will use the following diet at home:: No restrictions, Regular Your food should be the consistency of: Regular Your liquids should be the consistency of: Regular/Thin Discharge Activity: Return to Normal Activity, May Shower, Use Walker Weight Bearing Status: Weight bearing as tolerated Call your doctor if you observe: Fever of 101 or Higher, Inability to urinate, Inability to have a bowel movement, Shortness of breath, Chest pain, Uncontrolled pain Allergies/Adverse Reactions: Allergies iodine Allergy (Verified 02/24/18 13:39) Hives Penicillins Adverse Reaction (Verified 02/24/18 13:39) Rash Medications to take at Discharge Aspirin E.C. [Ecotrin] 81 mg PO DAILY@0800 09/15/13 Escitalopram Oxalate [Lexapro] 10 mg PO DAILY 09/15/13 Pioglitazone [Actos] 30 mg PO DAILY 09/15/13 Donepezil HCl [Aricept] 10 mg PO QHS 02/27/16 Oxybutynin [Ditropan] 15 mg PO DAILY 02/27/16 docusate sodium 100 mg capsule 100 mg PO DAILY PRN cap 02/24/18 Clopidogrel Bisulfate [Plavix] 75 mg PO DAILY 04/30/18 Ezetimibe [Zetia] 10 mg PO DAILY 04/30/18 Ramipril 5 mg PO DAILY 04/30/18 Acetaminophen [Tylenol] 1,000 mg PO Q6H PRN tablet 05/11/18 Mineral Oil/Petrolatum,White [Eucerin] 1 applic TOPICAL DAILY@2200 jar 05/11/18 Primary Care Physician: Daiana Andrew NP-C [Primary Care Provider] - Please follow up with your Primary Care Physician in: 1 week. Test Results: Test results from this visit will be discussed in further detail at your follow-up appointment, if applicable. Please Follow Up With: Daiana Andrew NP-C Proposed Discharge Date: 05/14/18 05/11/182104 <Electronically signed by Ravinder Ellis MD> Date Ravinder Ellis MD CC: Daiana Andrew NP Signed KNEE 1 OR 2 VIEWS Observed: 05/11/2018 Status: F Source: [place] 6:23 PM [facility] REPOSITORY [facility] Imaging Services [address] [place] [address] Knee 1 or 2 Views MR#: [id number] Acct: [id number] Name: SERVANDO SHERIFF Rep #: [id number] : 1940 M 78 From: Noelle Panda MD PCP: Daiana Andrew NP Status: ADM IN Study: Knee 1 or 2 Views Date of Exam: 05/11/18 Exam# [id number] Ordering Dr: Ravinder Ellis MD STUDY: X-RAY - RIGHT KNEE REASON FOR EXAM: Male, 78 years old. Fell couple of days ago onto his right knee. Pain anteriorly and laterally. TECHNIQUE: 2 view(s) of the knee. COMPARISON: None. FINDINGS: Small spurring along the femoral notch and spine. Anterior spur of the tibial plateau. Mild osteopenia. Normal proximal tibiofibular articulation. There is mild degenerative arthrosis of the medial femorotibial compartment. There is mild degenerative arthrosis of the lateral femorotibial compartment. There is mild degenerative arthrosis of the patellofemoral articulation. There is no demonstrated joint effusion. There are atherosclerotic calcifications. RAD/Knee 1 or 2 Views IMPRESSION: Mild tricompartmental degenerative changes. There is no acute displaced fracture or dislocation. Mild osteopenia. Electronically Signed: Noelle Panda MD at 0:59 EST , Service support , CC: Daiana Andrew TURN OPERATOR; Ravinder Ellis MD [employer] Assistant: Signed BEDSIDE GLUCOSE Collected: 05/11/2018 Status: F Source: [place] 6:10 AM [facility] REPOSITORY TYPE CODE TESTS RESULT OUT OF RANGE REFERENCE UNITS LAB L501.080 70-110 mg/dL Normal BEDSIDE GLU 75 Result Comment: MANAGEMENT OF PATIENT CARE PER NURSING PROTOCOL Performed By: #### L501.080 #### [facility] Point of Care [address] [place], [place] [id number] BEDSIDE GLUCOSE Collected: 05/10/2018 Status: F Source: [place] 6:39 AM [facility] REPOSITORY TYPE CODE TESTS RESULT OUT OF RANGE REFERENCE UNITS LAB L501.080 70-110 mg/dL Normal BEDSIDE GLU 87 Result Comment: MANAGEMENT OF PATIENT CARE PER NURSING PROTOCOL Performed By: #### L501.080 #### [facility] Point of Care [address] [place] [address] BEDSIDE GLUCOSE Collected: 05/09/2018 Status: F Source: [place] 6:22 AM [facility] REPOSITORY TYPE CODE TESTS RESULT OUT OF RANGE REFERENCE UNITS LAB L501.080 70-110 mg/dL Normal BEDSIDE GLU 80 Result Comment: MANAGEMENT OF PATIENT CARE PER NURSING PROTOCOL Performed By: #### L501.080 #### [facility] Point of Care [address] [place] [address] CBC W/DIFF, AUTOMATED Collected: 05/08/2018 Status: F Source: [place] 7:42 AM [facility] REPOSITORY TYPE CODE TESTS RESULT OUT OF RANGE REFERENCE UNITS LAB L100.1000 4.4-11.0 K/mm3 Normal WBC 5.7 LAB L100.1200 4.6-6.2 M/mm3 Low RBC 3.75 LAB L100.1300 13.0-16.5 g/dl Low HGB 10.6 LAB L100.1400 40-54 % Low HCT 34.8 LAB L100.1500 80-94 fL Normal MCV 92.8 LAB L100.1600 27.0-32.0 pg Normal MCH 28.3 LAB L100.1700 32-36 g/gl Low MCHC 30.5 LAB L100.1810 11.6-14.6 % High RDW CV 15.4 LAB L100.1820 35.1-43.9 fl High RDW SD 52.2 LAB L100.1900 150-450 K/mm3 Normal PLT 164 LAB L100.2000 6.2-12.0 fl Normal MPV 11.3 LAB L100.2100 47-70 % Normal NEUT% 57.8 LAB L100.2200 19-41 % Normal LY% 28.3 LAB L100.2300 0-10 % Normal MONO% 9.3 LAB L100.2400 0-5 % Normal EO% 3.9 LAB L100.2500 0-1 % Normal BASO% 0.5 LAB L100.2550 0.0-0.9 % Normal IM GRAN % 0.200 Result Comment: IG% - Immature Granulocytes (promyelocytes, myelocytes and metamyelocytes) > 1% indicates that a LEFT SHIFT is Present. LAB L100.2620 2.0-7.7 X10 3/uL Normal Absolute Neut 3.3 LAB L100.2720 0.83-4.51 X10 3/ul Normal Absolute Lymph 1.61 Performed By: #### L100.0100 #### [facility] [address] [place], [place], [address] BASIC METABOLIC Collected: 05/08/2018 Status: F Source: [place] PROFILE (BMP) 7:42 AM [facility] REPOSITORY TYPE CODE TESTS RESULT OUT OF RANGE REFERENCE UNITS LAB L501.0100 74-106 mg/dL Normal GLU 81 Result Comment: Please note revised GLUCOSE reference range effective 2017. LAB L501.1000 7-18 mg/dL High BUN 20 LAB L501.1100 0.70-1.30 mg/dL Normal CREAT,SERUM 1.21 Result Comment: The validity of the calculated GFR AND GFRAA in patients over 70 years has not been determined. Clinical correlation is essential. LAB L501.1110 >60 mL/min Normal EST GFR 61 Result Comment: Non- GFR Calc LAB L501.1115 >60 mL/min Normal EST GFR - AA 74 Result Comment: GFR Calc LAB L501.1255 ml/min Normal Estimated CRCL 46.28 LAB L501.1300 10-20 RATIO Normal BUN/CRE 16.5 LAB L501.2200 8.5-10 mg/dL Low .1 CA 8.0 LAB L501.5300 136-14 mmol/L Normal 5 NA 142 LAB L501.5600 3.5-5. mmol/L Normal 1 K 4.0 LAB L501.5900 98-107 mmol/L High CL 109 LAB L501.6100 21.0-3 mmol/L Normal 2.0 CO2 27.0 LAB L501.6200 5-15 Normal GAP 6 Performed By: #### L500.2500 #### [facility] [address] [place], [place], [address] BEDSIDE GLUCOSE Collected: 05/08/2018 Status: F Source: [place] 6:40 AM [facility] REPOSITORY TYPE CODE TESTS RESULT OUT OF RANGE REFERENCE UNITS LAB L501.080 70-110 mg/dL Normal BEDSIDE GLU 83 Result Comment: MANAGEMENT OF PATIENT CARE PER NURSING PROTOCOL Performed By: #### L501.080 #### [facility] Point of Care [address] [place], [place] [address] BEDSIDE GLUCOSE Collected: 05/07/2018 Status: F Source: [place] 6:17 AM [facility] REPOSITORY TYPE CODE TESTS RESULT OUT OF RANGE REFERENCE UNITS LAB L501.080 70-110 mg/dL Normal BEDSIDE GLU 90 Result Comment: MANAGEMENT OF PATIENT CARE PER NURSING PROTOCOL Performed By: #### L501.080 #### [facility] Point of Care [address] [place] [address] BEDSIDE GLUCOSE Collected: 05/06/2018 Status: F Source: [place] 6:24 AM [facility] REPOSITORY TYPE CODE TESTS RESULT OUT OF RANGE REFERENCE UNITS LAB L501.080 70-110 mg/dL Normal BEDSIDE GLU 76 Result Comment: MANAGEMENT OF PATIENT CARE PER NURSING PROTOCOL Performed By: #### L501.080 #### [facility] Point of Care [address] [place] [address] BEDSIDE GLUCOSE Collected: 05/05/2018 Status: F Source: [place] 6:49 AM [facility] REPOSITORY TYPE CODE TESTS RESULT OUT OF RANGE REFERENCE UNITS LAB L501.080 70-110 mg/dL Normal BEDSIDE GLU 84 Result Comment: MANAGEMENT OF PATIENT CARE PER NURSING PROTOCOL Performed By: #### L501.080 #### [facility] Point of Care [address] [place] [address] BEDSIDE GLUCOSE Collected: 05/04/2018 Status: F Source: [place] 6:22 AM [facility] REPOSITORY TYPE CODE TESTS RESULT OUT OF RANGE REFERENCE UNITS LAB L501.080 70-110 mg/dL Normal BEDSIDE GLU 80 Result Comment: MANAGEMENT OF PATIENT CARE PER NURSING PROTOCOL Performed By: #### L501.080 #### [facility] Point of Care [address] [place] [address] BEDSIDE GLUCOSE Collected: 05/03/2018 Status: F Source: [place] 8:29 PM [facility] REPOSITORY TYPE CODE TESTS RESULT OUT OF REFERENCE UNITS RANGE LAB L501.080 70-110 mg/dL High BEDSIDE GLU 134 Result Comment: MANAGEMENT OF PATIENT CARE PER NURSING PROTOCOL Performed By: #### L501.080 #### [facility] Point of Care [address] [place] [address] BEDSIDE GLUCOSE Collected: 05/03/2018 Status: F Source: [place] 4:59 PM [facility] REPOSITORY TYPE CODE TESTS RESULT OUT OF REFERENCE UNITS RANGE LAB L501.080 70-110 mg/dL High BEDSIDE GLU 123 Result Comment: MANAGEMENT OF PATIENT CARE PER NURSING PROTOCOL Performed By: #### L501.080 #### [facility] Point of Care [address] [place] [address] BEDSIDE GLUCOSE Collected: 05/03/2018 Status: F Source: [place] 11:58 AM [facility] REPOSITORY TYPE CODE TESTS RESULT OUT OF RANGE REFERENCE UNITS LAB L501.080 70-110 mg/dL Normal BEDSIDE GLU 94 Result Comment: MANAGEMENT OF PATIENT CARE PER NURSING PROTOCOL Performed By: #### L501.080 #### [facility] Point of Care [address] [place] [address] BEDSIDE GLUCOSE Collected: 05/03/2018 Status: F Source: [place] 6:20 AM [facility] REPOSITORY TYPE CODE TESTS RESULT OUT OF RANGE REFERENCE UNITS LAB L501.080 70-110 mg/dL Normal BEDSIDE GLU 82 Result Comment: MANAGEMENT OF PATIENT CARE PER NURSING PROTOCOL Performed By: #### L501.080 #### [facility] Point of Care [address] [place] [address] BEDSIDE GLUCOSE Collected: 05/02/2018 Status: F Source: QUIQUE 8:57 PM [facility] REPOSITORY TYPE CODE TESTS RESULT OUT OF REFERENCE UNITS RANGE LAB L501.080 70-110 mg/dL High BEDSIDE GLU 125 Result Comment: MANAGEMENT OF PATIENT CARE PER NURSING PROTOCOL Performed By: #### L501.080 #### [facility] Point of Care [address] [place] [address] BEDSIDE GLUCOSE Collected: 05/02/2018 Status: F Source: QUIQUE 4:57 PM [facility] REPOSITORY TYPE CODE TESTS RESULT OUT OF REFERENCE UNITS RANGE LAB L501.080 70-110 mg/dL High BEDSIDE GLU 140 Result Comment: MANAGEMENT OF PATIENT CARE PER NURSING PROTOCOL Performed By: #### L501.080 #### [facility] Point of Care [address] [place] [address] BEDSIDE GLUCOSE Collected: 05/02/2018 Status: F Source: QUIQUE 11:21 AM [facility] REPOSITORY TYPE CODE TESTS RESULT OUT OF RANGE REFERENCE UNITS LAB L501.080 70-110 mg/dL Normal BEDSIDE GLU 94 Result Comment: MANAGEMENT OF PATIENT CARE PER NURSING PROTOCOL Performed By: #### L501.080 #### [facility] Point of Care [address] [place] [address] BASIC METABOLIC Collected: 05/02/2018 Status: F Source: [facility] PROFILE (BMP) 6:54 AM [facility] REPOSITORY TYPE CODE TESTS RESULT OUT OF RANGE REFERENCE UNITS LAB L501.0100 74-106 mg/dL Normal GLU 82 Result Comment: Please note revised GLUCOSE reference range effective 2017. LAB L501.1000 7-18 mg/dL Normal BUN 18 LAB L501.1100 0.70-1.30 mg/dL Normal CREAT,SERUM 1.30 Result Comment: The validity of the calculated GFR AND GFRAA in patients over 70 years has not been determined. Clinical correlation is essential. LAB L501.1110 >60 mL/min Low EST GFR 57 Result Comment: Non- GFR Calc LAB L501.1115 >60 mL/min Normal EST GFR - AA 68 Result Comment: GFR Calc LAB L501.1255 ml/min Normal Estimated CRCL 43.08 LAB L501.1300 10-20 RATIO Normal BUN/CRE 13.8 LAB L501.2200 8.5-10 mg/dL Low .1 CA 8.0 LAB L501.5300 136-14 mmol/L Normal 5 NA 142 LAB L501.5600 3.5-5. mmol/L Normal 1 K 4.4 LAB L501.5900 98-107 mmol/L High CL 109 LAB L501.6100 21.0-3 mmol/L Normal 2.0 CO2 26.0 LAB L501.6200 5-15 Normal GAP 7 Performed By: #### L500.2500 #### [facility] [address] [place], [address] BEDSIDE GLUCOSE Collected: 05/02/2018 Status: F Source: QUIQUE 6:40 AM [facility] REPOSITORY TYPE CODE TESTS RESULT OUT OF RANGE REFERENCE UNITS LAB L501.080 70-110 mg/dL Normal BEDSIDE GLU 87 Result Comment: MANAGEMENT OF PATIENT CARE PER NURSING PROTOCOL Performed By: #### L501.080 #### [facility] Point of Care [address] [place] [address] BEDSIDE GLUCOSE Collected: 05/01/2018 Status: F Source: QUIQUE 9:00 PM [facility] REPOSITORY TYPE CODE TESTS RESULT OUT OF RANGE REFERENCE UNITS LAB L501.080 70-110 mg/dL Normal BEDSIDE GLU 102 Result Comment: MANAGEMENT OF PATIENT CARE PER NURSING PROTOCOL Performed By: #### L501.080 #### [facility] Point of Care [address] [place] [address] BEDSIDE GLUCOSE Collected: 05/01/2018 Status: F Source: QUIQUE 4:47 PM [facility] REPOSITORY TYPE CODE TESTS RESULT OUT OF REFERENCE UNITS RANGE LAB L501.080 70-110 mg/dL High BEDSIDE GLU 156 Result Comment: MANAGEMENT OF PATIENT CARE PER NURSING PROTOCOL Performed By: #### L501.080 #### [facility] Point of Care [address] [place] [address] BEDSIDE GLUCOSE Collected: 05/01/2018 Status: F Source: QUIQUE 11:02 AM [facility] REPOSITORY TYPE CODE TESTS RESULT OUT OF REFERENCE UNITS RANGE LAB L501.080 70-110 mg/dL High BEDSIDE GLU 131 Result Comment: MANAGEMENT OF PATIENT CARE PER NURSING PROTOCOL Performed By: #### L501.080 #### [facility] Point of Care [address] [place] [address] CBC W/DIFF, AUTOMATED Collected: 05/01/2018 Status: F Source: QUIQUE 7:26 AM [facility] REPOSITORY TYPE CODE TESTS RESULT OUT OF RANGE REFERENCE UNITS LAB L100.1000 4.4-11.0 K/mm3 Normal WBC 5.5 LAB L100.1200 4.6-6.2 M/mm3 Low RBC 4.08 LAB L100.1300 13.0-16.5 g/dl Low HGB 11.4 LAB L100.1400 40-54 % Low HCT 37.0 LAB L100.1500 80-94 fL Normal MCV 90.7 LAB L100.1600 27.0-32.0 pg Normal MCH 27.9 LAB L100.1700 32-36 g/gl Low MCHC 30.8 LAB L100.1810 11.6-14.6 % High RDW CV 15.2 LAB L100.1820 35.1-43.9 fl High RDW SD 50.6 LAB L100.1900 150-450 K/mm3 Normal PLT 162 LAB L100.2000 6.2-12.0 fl Normal MPV 11.0 LAB L100.2100 47-70 % Normal NEUT% 57.9 LAB L100.2200 19-41 % Normal LY% 27.4 LAB L100.2300 0-10 % Normal MONO% 9.9 LAB L100.2400 0-5 % Normal EO% 4.4 LAB L100.2500 0-1 % Normal BASO% 0.4 LAB L100.2550 0.0-0.9 % Normal IM GRAN % 0.000 Result Comment: IG% - Immature Granulocytes (promyelocytes, myelocytes and metamyelocytes) > 1% indicates that a LEFT SHIFT is Present. LAB L100.2620 2.0-7.7 X10 3/uL Normal Absolute Neut 3.2 LAB L100.2720 0.83-4.51 X10 3/ul Normal Absolute Lymph 1.50 Performed By: #### L100.0100 #### [facility] [address] [place], [place], [address] BASIC METABOLIC Collected: 05/01/2018 Status: F Source: [facility] PROFILE ([facility]) 7:26 AM [facility] REPOSITORY TYPE CODE TESTS RESULT OUT OF RANGE REFERENCE UNITS LAB L501.0100 74-106 mg/dL High GLU 107 Result Comment: Fasting Glucose result from 100 to 125 mg/dL suggests IMPAIRED HOMEOSTASIS per A.D.A. criteria. Please note revised GLUCOSE reference range effective 2017. LAB L501.1000 7-18 mg/dL Normal BUN 18 LAB L501.1100 0.70-1.30 mg/dL High CREAT,SERUM 1.43 Result Comment: The validity of the calculated GFR AND GFRAA in patients over 70 years has not been determined. Clinical correlation is essential. LAB L501.1110 >60 mL/min Low EST GFR 51 Result Comment: Non- GFR Calc LAB L501.1115 >60 mL/min Normal EST GFR - AA 61 Result Comment: GFR Calc LAB L501.1255 ml/min Normal Estimated CRCL 39.16 LAB L501.1300 10-20 RATIO Normal BUN/CRE 12.6 LAB L501.2200 8.5-10 mg/dL Low .1 CA 8.4 LAB L501.5300 136-14 mmol/L Normal 5 NA 141 LAB L501.5600 3.5-5. mmol/L Normal 1 K 4.2 LAB L501.5900 98-107 mmol/L Normal CL 107 LAB L501.6100 21.0-3 mmol/L Normal 2.0 CO2 28.0 LAB L501.6200 5-15 Normal GAP 6 Performed By: #### L500.2500 #### [facility] [address] [facility] [address] BEDSIDE GLUCOSE Collected: 05/01/2018 Status: F Source: QUIQUE 6:25 AM [facility] REPOSITORY TYPE CODE TESTS RESULT OUT OF RANGE REFERENCE UNITS LAB L501.080 70-110 mg/dL Normal BEDSIDE GLU 83 Result Comment: MANAGEMENT OF PATIENT CARE PER NURSING PROTOCOL Performed By: #### L501.080 #### [facility] Point of Care [address] [place] [address] BEDSIDE GLUCOSE Collected: 04/30/2018 Status: F Source: QUIQUE 8:57 PM [facility] REPOSITORY TYPE CODE TESTS RESULT OUT OF REFERENCE UNITS RANGE LAB L501.080 70-110 mg/dL High BEDSIDE GLU 165 Result Comment: MANAGEMENT OF PATIENT CARE PER NURSING PROTOCOL Performed By: #### L501.080 #### [facility] Point of Care [address] [place] [address] HISTORY AND PHYSICAL Observed: 04/30/2018 Status: F Source: [facility] EXAM 6:57 PM [facility] REPOSITORY [facility] Medical Records Department [address] [place] [address] History and Physical 04/30/18 1837 MR#: [id number] Acct: [id number] Name: SERVANDO SHERIFF Rep #: [id number] : 1940 78 From: Ravinder Ellis MD PCP: Daiana Andrew NP Status: ADM IN Y Location: [place] [address] Problem List (1) Fall Status: Acute (2) Dizziness Status: Acute (3) Debility Status: Acute (4) Orthostatic hypotension Status: Acute (5) Dehydration Status: Acute (6) Vascular dementia Status: Chronic (7) Stroke Status: Chronic (8) Coronary artery disease Status: Chronic (9) Diabetes mellitus Status: Chronic (10) Hyperlipidemia Status: Chronic (11) Hypothyroidism Status: Chronic (12) Chronic kidney disease Status: Chronic (13) Depression Status: Chronic (14) Overactive bladder Status: Chronic (15) GERD (gastroesophageal reflux disease) Status: Chronic (16) Nephrolithiasis Status: Chronic History of Present Illness Date of Admission: 04/30/18 Chief Complaint: Here for rehabilitation, strengthening, prior to discharge home with spouse. The patient is a 78 year old Male with below past medical history presented to [facility] Emergency Department 04/24/2018 with frequent falls. 04/24/2018 CT brain chronic left basal ganglia lacunar infarct, microvascular changes, atrophy. 04/24/2018 CT abdomen/pelvis negative. 04/24/2018 EKG sinus bradycardia, otherwise normal EKG. Dizziness, falls to left, chronic dizziness. Fell in AM, unable to get up. Back pain, abdominal pain. Cr 1.33, UA negative. 04/24/2018 Admit to Hospital. Gentle IV fluids, cycle cardiac enzymes. Consult PT/OT. 04/24/2018 X-ray right shoulder showed osteoporosis, severe osteoarthritis, negative for fracture. 04/25/2018 Repeat orthostatic vital signs. A1c 6.2, Diabetes well controlled. Continue IV fluids. 04/26/2018 Orthostatic vital signs POSITIVE. 04/27/2018 Orthostatic hypotension resolving with IV fluids. Consider Fludrocortisone. 04/28/2018 Encourage oral fluid hydration. 04/30/2018 Admit to TCU with debility, here for rehabilitation, strengthening, prior to discharge home with spouse. Past Medical History Past Medical History (Chronic Problems): Chronic Problems (Last Updated 04/24/18 @ 19:17 by George Pimentel MD) Vascular dementia (Chronic) Stroke (Chronic) Coronary artery disease (Chronic) Diabetes mellitus (Chronic) Hyperlipidemia (Chronic) Hypothyroidism (Chronic) Chronic kidney disease (Chronic) Depression (Chronic) Overactive bladder (Chronic) History of CVA (cerebrovascular accident) (Chronic) Pure hypercholesterolemia (Chronic) Atherosclerosis of cabazon coronary artery of cabazon heart without angina pectoris (Chronic) MACIAS to LAD, aortocoronary left radial artery to obtuse marginal artery, SVG to PDA; GERD (gastroesophageal reflux disease) (Chronic) History of angioplasty (Chronic 11/06/89) Angioplasty and stenting to 70% stenosis in proximal LAD, angioplasty and stenting to proximal diagonal LAD at bifurcation, and atherectomy and stenting to 80% stenosis in mid first diagonal artery in April 2011. 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) MACIAS to LAD, aortocoronary left radial artery to obtuse marginal artery, SVG to PDA H/O percutaneous transluminal coronary angioplasty (Chronic 05/13/11) stent to diagonal 1 History of cardiac catheterization (Chronic 03/2002) 03/28,06/28 DM2 (diabetes mellitus, type 2) (Chronic) CKD (chronic kidney disease) stage 3, GFR 30-59 ml/min (Chronic) Dementia (Chronic) Mild intermittent asthma (Chronic) Nephrolithiasis (Chronic) Medical History: Medical History (Last Updated 04/24/18 @ 19:17 by George Pimentel MD) Pure hypercholesterolemia (Chronic) E78.00 Atherosclerosis of cabazon coronary artery of cabazon heart without angina pectoris (Chronic) I25.10 MACIAS to LAD, aortocoronary left radial artery to obtuse marginal artery, SVG to PDA; GERD (gastroesophageal reflux disease) (Chronic) K21.9 DM2 (diabetes mellitus, type 2) (Chronic) E11.9 CKD (chronic kidney disease) stage 3, GFR 30-59 ml/min (Chronic) Dementia (Chronic) F03.90 Mild intermittent asthma (Chronic) J45.20 Nephrolithiasis (Chronic) History of Gerard's esophagus Z87.19 History of asthma Z87.09 History of irritable bowel syndrome Z87.19 Hypothyroidism E03.9 Allergies iodine Allergy (Verified 02/24/18 13:39) Hives Penicillins Adverse Reaction (Verified 02/24/18 13:39) Rash Home Medications: Ambulatory Orders Medication Instructions Recorded Aspirin E.C. [Ecotrin] 81 mg PO DAILY@0800 09/15/13 Escitalopram Oxalate [Lexapro] 10 mg PO DAILY 09/15/13 Surgical History: Surgical History (Last Updated 02/24/18 @ 14:14 by Gayle Humphrey) History of angioplasty (Chronic) Onset Date: 11/06/89 Z98.62 Angioplasty and stenting to 70% stenosis in proximal LAD, angioplasty and stenting to proximal diagonal LAD at bifurcation, and atherectomy and stenting to 80% stenosis in mid first diagonal artery in April 2011. S/P CABG x 3 (Chronic) Onset Date: 05/09/02 Z95.1 MACIAS to LAD, aortocoronary left radial artery to obtuse marginal artery, SVG to PDA H/O percutaneous transluminal coronary angioplasty (Chronic) Onset Date: 05/13/11 Z98.61 stent to diagonal 1 History of cardiac catheterization (Chronic) Onset Date: 03/2002 Z98.890 03/28,06/28 History of colon resection Onset Date: 09/15/13 Z90.49 History of hemorrhoidectomy Z98.890 History of right inguinal hernia repair Z98.890, Z87.19 History of squamous cell carcinoma excision Onset Date: 10/23/11 Z98.890, Z85.9 left orthodox with rhomboid transposition skin flap reconstruction History of tonsillectomy Z90.89 History of ureter stent Onset Date: 07/2008 Surgical History: coronary bypass surgery - x 3., herniorrhaphy - Hiatal., tonsillectomy, - - Cardiac stent. Psychiatric History: Depression Lives: Spouse/ Significant Other Smoking Status: Former smoker Tobacco Use: Non-smoker Alcohol: None Drugs: None - *Family History Maternal Family History: Family History (Last Updated 02/24/18 @ 13:42 by Gayle Humphrey) Father CVA (cerebral vascular accident) Brother Heart disease History Items: - - No stroke Paternal Family History: Family History (Last Updated 02/24/18 @ 13:42 by Gayle Humphrey) Father CVA (cerebral vascular accident) Brother Heart disease History Items: - - No stroke Review of Systems Constitutional: Denies: Chills, Fever, Weight Change HEENT: Denies: Head Aches, Sinus Congestion, Sinus Drainage Cardiovascular: Denies: Chest Pain, Palpitations Respiratory: Denies: Cough, Shortness of breath at rest, Sputum production Gastrointestinal: Denies: Abdominal Pain, Nausea, Vomiting Genitourinary: Denies: Dysuria Musculoskeletal: Denies: Joint Pain, Joint Tenderness Skin: Denies: Rash, Wounds Neurological: Denies: Numbness, Tingling, Focal weakness Psychiatric: Denies: Anxiety, Depression, Homicidal Ideations, Suicidal Ideations Hematologic/ Lymphatic: Denies: Easy Bruising, Easy Bleeding VTE Information - Inpt Only VTE Present on Admission: No VTE Mechan Device Prophylaxis: Knee High ANNA MARIE Hose VTE Pharm Prophylaxis ordered?: Yes Patient Problems: Active and Suspected Problems (Last Updated 04/24/18 @ 19:17 by George Pimentel MD) Fall (Acute) Dizziness (Acute) Debility (Acute) Orthostatic hypotension (Acute) Dehydration (Acute) - Physical Exam General: Alert, Oriented x3, Cooperative HEENT: Atraumatic, PERRLA, EOMI, Normocephalic Neck: Supple, No JVD, Negative Carotid Bruits Lungs: Clear to auscultation, Normal air movement Cardiovascular: Regular rate, No murmurs Abdomen: Bowel Sounds Present, Soft, Non Tender Extremities: No edema, Capillary Refill Less than 3 Seconds Skin: No rashes, No breakdown Musculoskeletal: No Tenderness to Palpation of Joints or Extremities Neurological: Cranial nerves II-XII grossly intact Psych/Mental Status: Normal Affect, Appropriate Vital Signs Temp Pulse Resp BP Pulse Ox 97.5 F L 66 16 103/53 L 97 04/30/18 16:48 04/30/18 16:48 04/30/18 16:48 04/30/18 16:48 04/30/18 16:48 Oxygen Delivery Method Room Air Weight: 83.9 kg Body Mass Index (BMI) 29.0 Finger Stick Blood Glucose 103 POC Glucose POC Glucose 100 Assessment/Plan All Active Problems (Last Updated 04/24/18 @ 19:17 by George Pimentel MD) Fall (Acute) Dizziness (Acute) Debility (Acute) Orthostatic hypotension (Acute) Dehydration (Acute) 78 year old male with below past medical history hospitalized for fall secondary to dizziness from orthostatic hypotension, complicated by acute on chronic kidney failure, admitted to TCU with debility, here for rehabilitation, strengthening, prior to discharge home with spouse. * Debility - PT/OT. * Pain - Tylenol 1000MG Q6H PRN mild pain. * Bowel - Miralax 17GM daily, Senna/colace 1 tablet BID, Dulcolax 10MG NM daily PRN. * Pneumonia vaccination - Administer Prevnar 13 and/or Pneumovax 23 as necessary. * DVT prophylaxis - Lovenox 40MG SC daily. * Stroke - Aspirin 81MG daily, Plavix 75MG daily. * Vascular Dementia(Mild) - Donepezil 10MG QHS. * Depression - Lexapro 10MG daily, resident doing well with chronic halfway use, GDR clinically contraindicated. * Hyperlipidemia - Zetia 10MG daily. * Nutrition - Glucerna 120ML 4x/day. * Diabetes Mellitus II - Goal A1c < 7.9, A1c 6.2, Pioglitazone 30MG daily. * Hypertension - Ramipril 5MG daily. * Overactive Bladder - Tolterodine 2MG daily. 04/30/18 5449 <Electronically signed by Ravinder Ellis MD> Date Ravinder Ellis MD [facility] Signature: Date (if applicable) CC: Daiana Andrew TURN OPERATOR; Ravinder Ellis MD Signed BEDSIDE GLUCOSE Collected: 04/30/2018 Status: F Source: QUIQUE 5:05 PM [facility] REPOSITORY TYPE CODE TESTS RESULT OUT OF RANGE REFERENCE UNITS LAB L501.080 70-110 mg/dL Normal BEDSIDE GLU 100 Result Comment: Dr Sanchez Followed MANAGEMENT OF PATIENT CARE PER NURSING PROTOCOL Performed By: #### L501.080 #### [facility] Point of Care [address] [place] [address] BEDSIDE GLUCOSE Collected: 04/30/2018 Status: F Source: QUIQUE 3:47 PM [facility] REPOSITORY TYPE CODE TESTS RESULT OUT OF RANGE REFERENCE UNITS LAB L501.080 70-110 mg/dL Normal BEDSIDE GLU 110 Result Comment: MANAGEMENT OF PATIENT CARE PER NURSING PROTOCOL Performed By: #### L501.080 #### [facility] Point of Care [address] [place] [address] DISCHARGE SUMMARY Observed: 04/30/2018 Status: F Source: [facility] 12:33 PM [facility] REPOSITORY [facility] Medical Records Department [address] [place] [address] Discharge Summary 04/30/18 1041 MR#: [id number] Acct: [id number] Name: SERVANDO SHERIFF Rep #: [id number] : 1940 78 From: Vy Gee MD PCP: Daiana Andrew NP Status: ADM HOMER Y Location: [place] [id number] Discharge Date and Diagnosis Date of Admission: 04/24/18 Date of Discharge: 04/30/18 - Primary Discharge Diagnosis debility due to mechanical falls - Secondary Discharge Diagnosis Chronic Problems (Last Updated 04/24/18 @ 19:17 by George Pimentel MD) History of CVA (cerebrovascular accident) (Chronic) Pure hypercholesterolemia (Chronic) Atherosclerosis of cabazon coronary artery of cabazon heart without angina pectoris (Chronic) MACIAS to LAD, aortocoronary left radial artery to obtuse marginal artery, SVG to PDA; GERD (gastroesophageal reflux disease) (Chronic) History of angioplasty (Chronic 11/06/89) Angioplasty and stenting to 70% stenosis in proximal LAD, angioplasty and stenting to proximal diagonal LAD at bifurcation, and atherectomy and stenting to 80% stenosis in mid first diagonal artery in April 2011. 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) MACIAS to LAD, aortocoronary left radial artery to obtuse marginal artery, SVG to PDA H/O percutaneous transluminal coronary angioplasty (Chronic 05/13/11) stent to diagonal 1 History of cardiac catheterization (Chronic 03/2002) 03/28,03 DM2 (diabetes mellitus, type 2) (Chronic) CKD (chronic kidney disease) stage 3, GFR 30-59 ml/min (Chronic) Dementia (Chronic) Mild intermittent asthma (Chronic) Nephrolithiasis (Chronic) Hospital Course and Treatment Imaging Results: Diagnostic Data Brain CT 04/24/18 15:57 IMPRESSION: 1. No acute process. 2. Chronic left basal ganglia lacunar infarct. 3. Microvascular ischemic changes. Atrophy. Electronically Signed: Matilde Espinoza MD at 18:01 EST Tel , Service support , Abdomen/Pelvis CT 04/24/18 15:58 IMPRESSION: No acute traumatic findings in the abdomen or pelvis. Stable nonacute findings, as above. Electronically Signed: Robby Maguire, at 18:00 EST Tel , Service support , Shoulder X-Ray 04/24/18 19:59 IMPRESSION: 1. Osteoporosis. 2. No definite evidence for acute fracture. 3. Degenerative arthropathy. Electronically Signed: Judit Martin MD at 5:30 EST , Service support , Operations: None Procedures: None Summary of Care Provided: The patient is a 78 year old M was admitted with a complaint of frequent falls and dizziness. He fell twice on the day of admission with assisted lightheadedness and dizziness prior to falling. He denied any loss of consciousness had no other symptoms. He sustained a left flank abrasion due to the fall. Initial vitals showed bradycardia and labs were otherwise unremarkable. UA showed no evidence of UTI and CT of the brain and abdomen and pelvis were negative. EKG showed sinus bradycardia. He was admitted and managed for debility due to frequent falls and dizziness and mild dehydration. Patient resuscitated with IV fluids. Orthostatics were initially positive and resolved with IV fluid administration. Patient remained stable and was discharged to the transitional care unit on 04/30/2018. Bradycardia resolved spontaneously during admission. He is to follow- up with his primary care doctor. Patient seen and examined prior to discharge. He had no complaints. He denied any fever, any chills, any cough or chest pain, shortness of breath, abdominal pain, any diarrhea vomiting. Review of systems otherwise negative. Labs and vitals reviewed. Home medications reviewed and reconciled. o/e: Vitals: Vital Signs Height 5 ft 8 in Weight: 179 lb 10.828 oz Weight in Pounds 179.7 lbs Pulse Ox 96 Temperature 98.4 F [] General: Alert, Oriented x3, Cooperative HEENT: Atraumatic, PERRLA, EOMI, Normocephalic Oral: Dry Mucosa Neck: Supple, No JVD, Negative Carotid Bruits Lungs: Clear to auscultation, Normal air movement, No rhonchi, No wheeze, No rales Cardiovascular: Regular rate, Regular Rhythm, Normal S1, Normal S2, No murmurs Abdomen: Bowel Sounds Present, Soft, Non Tender, Non-Distended, No Hepato-splenomegaly Extremities: No edema, Capillary Refill Less than 3 Seconds Skin: resolving flank bruises. Musculoskeletal: No Tenderness to Palpation of Joints or Extremities Lymphatic: No Cervical, Supraclavicular, or Inguinal Adenopathy Neurological: Cranial nerves II-XII grossly intact, Neuro grossly intact Psych/Mental Status: Normal Affect, Appropriate Plan as stated above. - Physical Exam Vital Signs Temp Pulse Resp BP Pulse Ox 98.4 F 66 16 112/64 96 04/30/18 08:41 04/30/18 08:41 04/30/18 08:41 04/30/18 08:41 04/30/18 08:41 Oxygen Delivery Method Room Air Weight: 179 lb 10.828 oz Body Mass Index (BMI) 27.3 Finger Stick Blood Glucose 103 Orthostatic Vital Signs Start: 04/25/18 02:34 Freq: q24h Status: Active Protocol: Activity Type Activity Date Activity User E-Sign Co-Sign Detail Recorded Client Recorded Date Recorded By Document 04/29/18 05:22 CMS [id number] 04/29/18 05:29 CMS Intake and Output for Last 24 Hours Intake Total 520 / 520 450 / 450 400 / 400 Balance 520 / 520 450 / 450 400 / 400 Discharge Diet: Low fat/ Low Cholesterol Discharge Activity: Return to Normal Activity Weight Bearing Status: Weight bearing as tolerated Home Medications: Medications to take at Discharge Aspirin E.C. [Ecotrin] 81 mg PO DAILY@0800 09/15/13 Escitalopram Oxalate [Lexapro] 10 mg PO DAILY 09/15/13 Pioglitazone [Actos] 30 mg PO DAILY 09/15/13 Donepezil HCl [Aricept] 10 mg PO QHS 02/27/16 Oxybutynin [Ditropan] 15 mg PO DAILY 02/27/16 ezetimibe 10 mg tablet 10 mg PO DAILY #90 tab 06/18/17 ramipril 5 mg capsule 5 mg PO DAILY #90 cap 07/28/17 docusate sodium 100 mg capsule 100 mg PO DAILY PRN cap 02/24/18 clopidogrel 75 mg tablet 75 mg PO DAILY #90 tab 03/22/18 Primary Care Physician: Daiana Andrew NP-C [Primary Care Provider] - Please follow up with your Primary Care Physician in: 1 week Disposition: Snf facility Minutes spent on discharge:: 33 Patient Condition:: Stable Medical Necessity - Tobacco Use Smoking Status: Former smoker Meaningful Use Info Meaningful Use Diagnoses (Choose all that apply): None applicable Code Visit Inpatient E AND M: [id number] Disch Hosp 04/30/18 1233 <Electronically signed by Vy Gee MD> Date Vy Gee MD Cosigner Signature (if applicable): Date CC: Daiana Andrew; Daiana Andrew TURN OPERATOR; Vy Gee MD Signed BEDSIDE GLUCOSE Collected: 04/30/2018 Status: F Source: [facility] 11:40 AM [facility] REPOSITORY TYPE CODE TESTS RESULT OUT OF RANGE REFERENCE UNITS LAB L501.080 70-110 mg/dL Normal BEDSIDE GLU 89 Result Comment: MANAGEMENT OF PATIENT CARE PER NURSING PROTOCOL Performed By: #### L501.080 #### [facility] Point of Care [address] [place] [address] TRANSFER TO [facility] Observed: 04/30/2018 Status: F Source: [facility] 10:41 AM [facility] REPOSITORY [facility] Medical Records Department [address] [place] [place] [address] Transfer to [facility] MR#: [id number] Acct: [id number] Name: SERVANDO SHERIFF Rep #: [id number] : 1940 78 From: Vy Gee MD PCP: Daiana Andrew NP Status: ADM SERVANDO CERVANTES (Patient) (Health Ins. Claim No.) (Day of Discharge to Facility) Certification of patient admission REQUIRED AT TIME OF ADMISSION. I CERTIFY THAT POST-HOSPITAL F SERVICES ARE REQUIRED TO BE GIVEN ON AN IN-PATIENT BASIS BECAUSE OF THE ABOVE NAMED PATIENT'S NEED FOR DETENTION CARE ON A CONTINUING BASIS FOR THE CONDITION(S) FOR WHICH HE/SHE WAS RECEIVING IN-PATIENT HOSPITAL SERVICES PRIOR TO HIS/HER TRANSFER TO [facility]. 04/30/18 1041 <Electronically signed by Vy Gee MD> Date Vy Gee MD - Diet 04/24/18 19:59 Diet: Calorie Controlled How many daily calories?: 1800 calorie - Routine Orders/Code Status Enema Type: Fleetz Enema Frequency: Daily PRN Suppository Type: Dulcolax 10mg Suppository Frequency: Daily PRN O2 Liters per Minute: 92 O2 Frequency: PRN - Wound(s) rt side of back Wound Type: Abrasion - Therapies Weight Bearing: Weight bearing as tolerated Physical Therapy: Eval and Treat Occupational Therapy: Eval and Treat - Allergies/Procedures Done in Hospital Allergies/Adverse Reactions: Allergies iodine Allergy (Verified 02/24/18 13:39) Hives Penicillins Adverse Reaction (Verified 02/24/18 13:39) Rash Procedures: None - Type of Care/Length of Stay Estimated LOS: Convalescent Care Less Than 30 days Type of Care Needed: Skilled Rehab Potential: Fair Prognosis: Fair - Additional Orders/Day of Discharge Day of Discharge: 04/30/18 - Dietary and Speech Recommendations Dietitian Recommendations/Changes: Rec liberalize diet as needed to REGULAR to help optimize PO at meals d/t s/s of malnutrition. Will provide ensure pudding or magic cup w/ meals for increased nutrition if consumed. Continue glucerna shake on medpass as PO established at meals. - Follow Up Care Primary Care Physician: Daiana Andrew, TALIB-C [Primary Care Provider] - Please follow up with your Primary Care Physician in: 1 week 04/30/18 1041 <Electronically signed by Vy Gee MD> Date Vy Gee MD CC: Daiana Andrew NP Signed 12 LEAD ELECTROCARDIOGRAM Observed: 04/28/2018 Status: F Source: [facility] 3:09 PM [facility] REPOSITORY [facility] Cardiovascular Services [address] [place] [address] 12 Lead EKG 04/25/18 0601 MR#: [id number] Acct: [id number] Name: SERVANDO SHERIFF Rep #: [id number] : 1940 78 From: Stu Dugan MD Attending Dr: Vy Gee MD Status: ADM HOMER Ordering Dr: George Pimentel MD Date: 04/25/18 Location: [facility] Sex: M C Admitted: 04/24/18 Test Reason : AM EKG Blood Pressure : / mmHG Vent. Rate : 061 BPM Atrial Rate : 061 BPM P-R Int : 152 ms QRS Dur : 090 ms QT Int : 454 ms P-R-T Axes : 043 024 054 degrees QTc Int : 457 ms Normal sinus rhythm Normal ECG Confirmed by KAILEE CAMPBELL, STU ([id number]), subeditor SARKIS MARTIN ([id number]) on 04/28/2018 3:08:36 PM Referred By: George Pimentel Confirmed By:STU DUGAN MD 04/28/18 1508 Date Stu Dugan MD CC: Daiana Andrew NP; George Pimentel; Vy Gee MD Signed BEDSIDE GLUCOSE Collected: 04/27/2018 Status: F Source: [place] 11:50 AM [facility] REPOSITORY TYPE CODE TESTS RESULT OUT OF RANGE REFERENCE UNITS LAB L501.080 70-110 mg/dL Normal BEDSIDE GLU 90 Result Comment: MANAGEMENT OF PATIENT CARE PER NURSING PROTOCOL Performed By: #### L501.080 #### [facility] Point of Care [address] [place] [address] BEDSIDE GLUCOSE Collected: 04/27/2018 Status: F Source: [facility] 6:39 AM [facility] REPOSITORY TYPE CODE TESTS RESULT OUT OF RANGE REFERENCE UNITS LAB L501.080 70-110 mg/dL Normal BEDSIDE GLU 93 Result Comment: MANAGEMENT OF PATIENT CARE PER NURSING PROTOCOL Performed By: #### L501.080 #### [facility] Point of Care [address] [place] [address] BASIC METABOLIC Collected: 04/27/2018 Status: F Source: [place] PROFILE (BMP) 4:40 AM [facility] REPOSITORY TYPE CODE TESTS RESULT OUT OF RANGE REFERENCE UNITS LAB L501.0100 74-106 mg/dL Normal GLU 92 Result Comment: Please note revised GLUCOSE reference range effective 2017. LAB L501.1000 7-18 mg/dL Normal BUN 15 LAB L501.1100 0.70-1.30 mg/dL Normal CREAT,SERUM 1.13 Result Comment: The validity of the calculated GFR AND GFRAA in patients over 70 years has not been determined. Clinical correlation is essential. LAB L501.1110 >60 mL/min Normal EST GFR 67 Result Comment: Non- GFR Calc LAB L501.1115 >60 mL/min Normal EST GFR - AA 81 Result Comment: GFR Calc LAB L501.1255 ml/min Normal Estimated CRCL 51.28 LAB L501.1300 10-20 RATIO Normal BUN/CRE 13.3 LAB L501.2200 8.5-10 mg/dL Low .1 CA 8.2 LAB L501.5300 136-14 mmol/L Normal 5 NA 144 LAB L501.5600 3.5-5. mmol/L Normal 1 K 3.9 LAB L501.5900 98-107 mmol/L High CL 108 LAB L501.6100 21.0-3 mmol/L Normal 2.0 CO2 26.0 LAB L501.6200 5-15 Normal GAP 10 Performed By: #### L500.2500 #### [facility] [address] [place], [address] CBC W/DIFF, AUTOMATED Collected: 04/27/2018 Status: F Source: [facility] 4:40 AM [facility] REPOSITORY TYPE CODE TESTS RESULT OUT OF RANGE REFERENCE UNITS LAB L100.1000 4.4-11.0 K/mm3 Normal WBC 5.7 LAB L100.1200 4.6-6.2 M/mm3 Low RBC 4.16 LAB L100.1300 13.0-16.5 g/dl Low HGB 11.9 LAB L100.1400 40-54 % Low HCT 38.1 LAB L100.1500 80-94 fL Normal MCV 91.6 LAB L100.1600 27.0-32.0 pg Normal MCH 28.6 LAB L100.1700 32-36 g/gl Low MCHC 31.2 LAB L100.1810 11.6-14.6 % High RDW CV 14.9 LAB L100.1820 35.1-43.9 fl High RDW SD 48.6 LAB L100.1900 150-450 K/mm3 Low PLT 136 LAB L100.2000 6.2-12.0 fl Normal MPV 11.9 LAB L100.2100 47-70 % Normal NEUT% 56.6 LAB L100.2200 19-41 % Normal LY% 27.9 LAB L100.2300 0-10 % High MONO% 10.3 LAB L100.2400 0-5 % Normal EO% 4.9 LAB L100.2500 0-1 % Normal BASO% 0.3 LAB L100.2550 0.0-0.9 % Normal IM GRAN % 0.000 Result Comment: IG% - Immature Granulocytes (promyelocytes, myelocytes and metamyelocytes) > 1% indicates that a LEFT SHIFT is Present. LAB L100.2620 2.0-7.7 X10 3/uL Normal Absolute Neut 3.2 LAB L100.2720 0.83-4.51 X10 3/ul Normal Absolute Lymph 1.60 Performed By: #### L100.0100 #### [facility] [place], [address] BEDSIDE GLUCOSE Collected: 04/26/2018 Status: F Source: [facility] 11:22 PM [facility] REPOSITORY TYPE CODE TESTS RESULT OUT OF RANGE REFERENCE UNITS LAB L501.080 70-110 mg/dL Normal BEDSIDE GLU 80 Result Comment: MANAGEMENT OF PATIENT CARE PER NURSING PROTOCOL Performed By: #### L501.080 #### [facility] Point of Care [address] [place] [address] BEDSIDE GLUCOSE Collected: 04/26/2018 Status: F Source: [facility] 4:27 PM [facility] REPOSITORY TYPE CODE TESTS RESULT OUT OF REFERENCE UNITS RANGE LAB L501.080 70-110 mg/dL High BEDSIDE GLU 116 Result Comment: MANAGEMENT OF PATIENT CARE PER NURSING PROTOCOL Performed By: #### L501.080 #### [facility] Point of Care [address] [place], [place] [address] 12 LEAD ELECTROCARDIOGRAM Observed: 04/26/2018 Status: F Source: [facility] 12:45 PM [facility] REPOSITORY [facility] Cardiovascular Services [address] [place] [address] 12 Lead EKG 04/24/18 1646 MR#: [id number] Acct: [id number] Name: SERVANDO SHERIFF Rep #: [id number] : 1940 78 From: Stu Dugan MD Attending Dr: Vy Gee MD Status: ADM HOMER Ordering Dr: Venancio Frausto MD Date: 04/24/18 Location: [facility] Sex: M C Admitted: 04/24/18 Test Reason : FALL Blood Pressure : / mmHG Vent. Rate : 053 BPM Atrial Rate : 053 BPM P-R Int : 136 ms QRS Dur : 090 ms QT Int : 470 ms P-R-T Axes : 006 001 022 degrees QTc Int : 441 ms Sinus bradycardia Otherwise normal ECG Confirmed by KAILEE CAMPBELL, STU ([id number]), subeditor SARKIS MARTIN ([id number]) on 04/26/2018 12:45:36 PM Referred By: George Pimentel Confirmed By:STU DUGAN MD 04/26/18 1241 Date Stu Dugan MD CC: Daiana Andrew NP; George Pimentel; Vy Gee MD; Venancio Frausto MD Signed BEDSIDE GLUCOSE Collected: 04/26/2018 Status: F Source: [facility] 12:11 PM [facility] REPOSITORY TYPE CODE TESTS RESULT OUT OF RANGE REFERENCE UNITS LAB L501.080 70-110 mg/dL Normal BEDSIDE GLU 80 Result Comment: MANAGEMENT OF PATIENT CARE PER NURSING PROTOCOL Performed By: #### L501.080 #### [facility] Point of Care [address] [place] [address] BEDSIDE GLUCOSE Collected: 04/26/2018 Status: F Source: [place] 6:14 AM [facility] REPOSITORY TYPE CODE TESTS RESULT OUT OF RANGE REFERENCE UNITS LAB L501.080 70-110 mg/dL Normal BEDSIDE GLU 80 Result Comment: MANAGEMENT OF PATIENT CARE PER NURSING PROTOCOL Performed By: #### L501.080 #### [facility] Point of Care [address] [place] [address] BASIC METABOLIC Collected: 04/26/2018 Status: F Source: [place] PROFILE (BMP) 5:04 AM [facility] REPOSITORY TYPE CODE TESTS RESULT OUT OF RANGE REFERENCE UNITS LAB L501.0100 74-106 mg/dL Normal GLU 80 Result Comment: Please note revised GLUCOSE reference range effective 2017. LAB L501.1000 7-18 mg/dL Normal BUN 15 LAB L501.1100 0.70-1.30 mg/dL Normal CREAT,SERUM 1.17 Result Comment: The validity of the calculated GFR AND GFRAA in patients over 70 years has not been determined. Clinical correlation is essential. LAB L501.1110 >60 mL/min Normal EST GFR 64 Result Comment: Non- GFR Calc LAB L501.1115 >60 mL/min Normal EST GFR - AA 77 Result Comment: GFR Calc LAB L501.1255 ml/min Normal Estimated CRCL 49.53 LAB L501.1300 10-20 RATIO Normal BUN/CRE 12.8 LAB L501.2200 8.5-10 mg/dL Low .1 CA 8.0 LAB L501.5300 136-14 mmol/L Normal 5 NA 143 LAB L501.5600 3.5-5. mmol/L Normal 1 K 3.9 LAB L501.5900 98-107 mmol/L High CL 111 LAB L501.6100 21.0-3 mmol/L Normal 2.0 CO2 25.0 LAB L501.6200 5-15 Normal GAP 7 Performed By: #### L500.2500 #### [facility] [address] [place], [place], [id number] CBC W/DIFF, AUTOMATED Collected: 04/26/2018 Status: F Source: [facility] 5:04 AM [facility] REPOSITORY TYPE CODE TESTS RESULT OUT OF RANGE REFERENCE UNITS LAB L100.1000 4.4-11.0 K/mm3 Normal WBC 7.3 LAB L100.1200 4.6-6.2 M/mm3 Low RBC 3.98 LAB L100.1300 13.0-16.5 g/dl Low HGB 11.3 LAB L100.1400 40-54 % Low HCT 36.5 LAB L100.1500 80-94 fL Normal MCV 91.7 LAB L100.1600 27.0-32.0 pg Normal MCH 28.4 LAB L100.1700 32-36 g/gl Low MCHC 31.0 LAB L100.1810 11.6-14.6 % High RDW CV 14.9 LAB L100.1820 35.1-43.9 fl High RDW SD 48.8 LAB L100.1900 150-450 K/mm3 Low PLT 133 LAB L100.2000 6.2-12.0 fl Normal MPV 11.6 LAB L100.2100 47-70 % Normal NEUT% 66.1 LAB L100.2200 19-41 % Normal LY% 21.3 LAB L100.2300 0-10 % Normal MONO% 9.4 LAB L100.2400 0-5 % Normal EO% 2.7 LAB L100.2500 0-1 % Normal BASO% 0.4 LAB L100.2550 0.0-0.9 % Normal IM GRAN % 0.100 Result Comment: IG% - Immature Granulocytes (promyelocytes, myelocytes and metamyelocytes) > 1% indicates that a LEFT SHIFT is Present. LAB L100.2620 2.0-7.7 X10 3/uL Normal Absolute Neut 4.8 LAB L100.2720 0.83-4.51 X10 3/ul Normal Absolute Lymph 1.56 Performed By: #### L100.0100 #### [facility] [address] [place], [place], [id number] BEDSIDE GLUCOSE Collected: 04/25/2018 Status: F Source: [place] 9:43 PM [facility] REPOSITORY TYPE CODE TESTS RESULT OUT OF REFERENCE UNITS RANGE LAB L501.080 70-110 mg/dL High BEDSIDE GLU 123 Result Comment: MANAGEMENT OF PATIENT CARE PER NURSING PROTOCOL Performed By: #### L501.080 #### [facility] Point of Care [address] [place] [address] BEDSIDE GLUCOSE Collected: 04/25/2018 Status: F Source: [place] 3:09 PM [facility] REPOSITORY TYPE CODE TESTS RESULT OUT OF RANGE REFERENCE UNITS LAB L501.080 70-110 mg/dL Normal BEDSIDE GLU 86 Result Comment: MANAGEMENT OF PATIENT CARE PER NURSING PROTOCOL Performed By: #### L501.080 #### [facility] Point of Care [address] [place] [address] BEDSIDE GLUCOSE Collected: 04/25/2018 Status: F Source: [place] 12:04 PM [facility] REPOSITORY TYPE CODE TESTS RESULT OUT OF REFERENCE UNITS RANGE LAB L501.080 70-110 mg/dL High BEDSIDE GLU 129 Result Comment: MANAGEMENT OF PATIENT CARE PER NURSING PROTOCOL Performed By: #### L501.080 #### [facility] Point of Care [address] [place] [address] BEDSIDE GLUCOSE Collected: 04/25/2018 Status: F Source: [place] 6:21 AM [facility] REPOSITORY TYPE CODE TESTS RESULT OUT OF RANGE REFERENCE UNITS LAB L501.080 70-110 mg/dL Normal BEDSIDE GLU 96 Result Comment: MANAGEMENT OF PATIENT CARE PER NURSING PROTOCOL Performed By: #### L501.080 #### [facility] Point of Care [address] [place] [address] CBC W/DIFF, AUTOMATED Collected: 04/25/2018 Status: F Source: [place] 5:55 AM [facility] REPOSITORY TYPE CODE TESTS RESULT OUT OF RANGE REFERENCE UNITS LAB L100.1000 4.4-11.0 K/mm3 Normal WBC 4.8 LAB L100.1200 4.6-6.2 M/mm3 Low RBC 3.87 LAB L100.1300 13.0-16.5 g/dl Low HGB 10.9 LAB L100.1400 40-54 % Low HCT 35.4 LAB L100.1500 80-94 fL Normal MCV 91.5 LAB L100.1600 27.0-32.0 pg Normal MCH 28.2 LAB L100.1700 32-36 g/gl Low MCHC 30.8 LAB L100.1810 11.6-14.6 % High RDW CV 14.9 LAB L100.1820 35.1-43.9 fl High RDW SD 48.6 LAB L100.1900 150-450 K/mm3 Low PLT 138 LAB L100.2000 6.2-12.0 fl Normal MPV 11.7 LAB L100.2100 47-70 % Normal NEUT% 53.5 LAB L100.2200 19-41 % Normal LY% 32.6 LAB L100.2300 0-10 % High MONO% 10.2 LAB L100.2400 0-5 % Normal EO% 3.3 LAB L100.2500 0-1 % Normal BASO% 0.4 LAB L100.2550 0.0-0.9 % Normal IM GRAN % 0.000 Result Comment: IG% - Immature Granulocytes (promyelocytes, myelocytes and metamyelocytes) > 1% indicates that a LEFT SHIFT is Present. LAB L100.2620 2.0-7.7 X10 3/uL Normal Absolute Neut 2.6 LAB L100.2720 0.83-4.51 X10 3/ul Normal Absolute Lymph 1.57 Performed By: #### L100.0100 #### [facility] [address] [place], [place], [id number] BASIC METABOLIC Collected: 04/25/2018 Status: F Source: [place] PROFILE (BMP) 5:55 AM [facility] REPOSITORY TYPE CODE TESTS RESULT OUT OF RANGE REFERENCE UNITS LAB L501.0100 74-106 mg/dL Normal GLU 105 Result Comment: Fasting Glucose result from 100 to 125 mg/dL suggests IMPAIRED HOMEOSTASIS per A.D.A. criteria. Please note revised GLUCOSE reference range effective 2017. LAB L501.1000 7-18 mg/dL Normal BUN 17 LAB L501.1100 0.70-1.30 mg/dL Normal CREAT,SERUM 1.20 Result Comment: The validity of the calculated GFR AND GFRAA in patients over 70 years has not been determined. Clinical correlation is essential. LAB L501.1110 >60 mL/min Normal EST GFR 62 Result Comment: Non- GFR Calc LAB L501.1115 >60 mL/min Normal EST GFR - AA 75 Result Comment: GFR Calc LAB L501.1255 ml/min Normal Estimated CRCL 48.29 LAB L501.1300 10-20 RATIO Normal BUN/CRE 14.2 LAB L501.2200 8.5-10 mg/dL Low .1 CA 7.7 LAB L501.5300 136-14 mmol/L Normal 5 NA 141 LAB L501.5600 3.5-5. mmol/L Normal 1 K 3.7 LAB L501.5900 98-107 mmol/L High CL 109 LAB L501.6100 21.0-3 mmol/L Normal 2.0 CO2 26.0 LAB L501.6200 5-15 Normal GAP 6 Performed By: #### L500.2500 #### [facility] [address] [place], [address] BEDSIDE GLUCOSE Collected: 04/24/2018 Status: F Source: [facility] 10:23 PM [facility] REPOSITORY TYPE CODE TESTS RESULT OUT OF RANGE REFERENCE UNITS LAB L501.080 70-110 mg/dL Normal BEDSIDE GLU 95 Result Comment: MANAGEMENT OF PATIENT CARE PER NURSING PROTOCOL Performed By: #### L501.080 #### [facility] Point [facility] Care [address] [facility] [place] [place] [address] SHOULDER MIN 2 VIEWS Observed: 04/24/2018 Status: F Source: [facility] 7:59 PM [facility] REPOSITORY [facility] Imaging Services [address] [place] [address] Shoulder min 2 Views MR#: [id number] Acct: [id number] Name: SERVANDO SHERIFF Rep #: [id number] : 1940 M 78 From: Judit Martin MD PCP: Daiana Andrew NP Status: ADM HOMER Study: Shoulder min 2 Views Date of Exam: 04/24/18 Exam# [id number] Ordering Dr: George Pimentel MD STUDY: X-RAY - RIGHT SHOULDER REASON FOR EXAM: Male, 78 years old. Right-sided shoulder pain. TECHNIQUE: 2 view(s) of the shoulder. COMPARISON: None. FINDINGS: There is mild degenerative arthrosis of the glenohumeral articulation. Normal acromioclavicular joint. Normal acromion. There is demineralization of the humerus and visualized osseous structures. The soft tissue structures are unremarkable. There is no demonstrated fracture. There are prominent bronchovascular markings in the right lung. RAD/Shoulder min 2 Views IMPRESSION: 1. Osteoporosis. 2. No definite evidence for acute fracture. 3. Degenerative arthropathy. Electronically Signed: Judit Martin MD at 5:30 EST , Service support , CC: Daiana Andrew NP; George Pimentel [employer] Assistant: Signed HISTORY AND PHYSICAL Observed: 04/24/2018 Status: F Source: [facility] EXAM 7:22 PM [facility] REPOSITORY [facility] Medical Records Department [address] [place] [address] History and Physical 04/24/18 1906 MR#: [id number] Acct: [id number] Name: SERVANDO SHERIFF Rep #: [id number] : 1940 78 From: George Pimentel MD PCP: Daiana Andrew NP Status: ADM HOMER Y Location: CO3 LR032-9 Problem List (1) Atherosclerosis of cabazon coronary artery of cabazon heart without angina pectoris Status: Chronic Comment: MACIAS to LAD, aortocoronary left radial artery to obtuse marginal artery, SVG to PDA; (2) GERD (gastroesophageal reflux disease) Status: Chronic (3) History of angioplasty Status: Chronic Comment: Angioplasty and stenting to 70% stenosis in proximal LAD, angioplasty and stenting to proximal diagonal LAD at bifurcation, and atherectomy and stenting to 80% stenosis in mid first diagonal artery in April 2011. (4) S/P CABG x 3 Status: Chronic Comment: MACIAS to LAD, aortocoronary left radial artery to obtuse marginal artery, SVG to PDA (5) DM2 (diabetes mellitus, type 2) Status: Chronic (6) CKD (chronic kidney disease) stage 3, GFR 30-59 ml/min Status: Chronic (7) Dementia Status: Chronic (8) Mild intermittent asthma Status: Chronic (9) Nephrolithiasis Status: Chronic History of Present Illness Date of Admission: 04/24/18 Chief Complaint: Frequent falls, dizziness. The patient is a 78 year old M with past medical history as mentioned above presented to the emergency room because of frequent falls and dizziness. The patient is not a good informant because of history of dementia. Today, patient fell twice and he mentioned that before he fell, he was dizzy and lightheaded. His was with him and she could not help him to get up. His mentioned that he has been getting dizzy spells recently but not as bad as today. No reported syncope, presyncope or loss of consciousness. Patient denied chest pain, palpitation, nausea or vomiting. Patient denied headache, neck pain, blurred vision or slurred speech. He complains of right flank pain and apparently, he has left flank abrasion secondary to the fall. Also, he complained of right shoulder pain. He has a history of CAD status post CABG and stents and he has been on aspirin, Plavix and Zetia as well as ramipril. He had a history of type 2 diabetes mellitus, has been on Actos and his blood sugar has been under control, no recent hemoglobin A1c. He had a history of dementia with intermittent confusion and he has been on Aricept. He had a history of stage III chronic kidney disease, creatinine has been around 1.1-1.4 back in 2016, admission creatinine is 1.33 which seemed to be at baseline. In the emergency department, he was bradycardic, heart rate has been in the 50s, other vital signs are stable. His routine blood work was remarkable for creatinine of 1.33, otherwise normal. Urinalysis revealed no evidence of UTI. CT scan brain showed no acute findings. CT scan abdomen and pelvis with contrast done because of right flank abrasion and bruises and there was no evidence of acute intra-abdominal pathology, revealed bilateral small nonobstructive kidney stones. His EKG revealed sinus bradycardia, otherwise normal, NM interval is normal, no evidence of cardiac arrhythmias or heart block. He is being admitted for frequent falls, physical debility, dizziness and mild dehydration and these probably would need placement to penitentiary facility. Past Medical History Past Medical History (Chronic Problems): Chronic Problems (Last Updated 02/24/18 @ 15:05 by MADIHA Solano) History of CVA (cerebrovascular accident) (Chronic) Pure hypercholesterolemia (Chronic) Atherosclerosis of cabazon coronary artery of cabazon heart without angina pectoris (Chronic) MACIAS to LAD, aortocoronary left radial artery to obtuse marginal artery, SVG to PDA; GERD (gastroesophageal reflux disease) (Chronic) History of angioplasty (Chronic 11/06/89) Angioplasty and stenting to 70% stenosis in proximal LAD, angioplasty and stenting to proximal diagonal LAD at bifurcation, and atherectomy and stenting to 80% stenosis in mid first diagonal artery in April 2011. 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) MACIAS to LAD, aortocoronary left radial artery to obtuse marginal artery, SVG to PDA H/O percutaneous transluminal coronary angioplasty (Chronic 05/13/11) stent to diagonal 1 History of cardiac catheterization (Chronic 03/2002) 03/28,06/28 DM2 (diabetes mellitus, type 2) (Chronic) CKD (chronic kidney disease) stage 3, GFR 30-59 ml/min (Chronic) Dementia (Chronic) Mild intermittent asthma (Chronic) Nephrolithiasis (Chronic) Medical History: Medical History (Last Updated 02/24/18 @ 15:05 by MADIHA Solano) Pure hypercholesterolemia (Chronic) E78.00 Atherosclerosis of cabazon coronary artery of cabazon heart without angina pectoris (Chronic) I25.10 MACIAS to LAD, aortocoronary left radial artery to obtuse marginal artery, SVG to PDA; GERD (gastroesophageal reflux disease) (Chronic) K21.9 DM2 (diabetes mellitus, type 2) (Chronic) E11.9 CKD (chronic kidney disease) stage 3, GFR 30-59 ml/min (Chronic) Dementia (Chronic) F03.90 Mild intermittent asthma (Chronic) J45.20 Nephrolithiasis (Chronic) History of Gerard's esophagus Z87.19 History of asthma Z87.09 History of irritable bowel syndrome Z87.19 Hypothyroidism E03.9 Allergies iodine Allergy (Verified 02/24/18 13:39) Hives Penicillins Adverse Reaction (Verified 02/24/18 13:39) Rash Home Medications: Ambulatory Orders Medication Instructions Recorded Aspirin E.C. [Ecotrin] 81 mg PO DAILY@0800 09/15/13 Escitalopram Oxalate [Lexapro] 10 mg PO DAILY 09/15/13 Surgical History: Surgical History (Last Updated 02/24/18 @ 14:14 by Gayle Humphrey) History of angioplasty (Chronic) Onset Date: 11/06/89 Z98.62 Angioplasty and stenting to 70% stenosis in proximal LAD, angioplasty and stenting to proximal diagonal LAD at bifurcation, and atherectomy and stenting to 80% stenosis in mid first diagonal artery in April 2011. S/P CABG x 3 (Chronic) Onset Date: 05/09/02 Z95.1 MACIAS to LAD, aortocoronary left radial artery to obtuse marginal artery, SVG to PDA H/O percutaneous transluminal coronary angioplasty (Chronic) Onset Date: 05/13/11 Z98.61 stent to diagonal 1 History of cardiac catheterization (Chronic) Onset Date: 03/2002 Z98.890 /,03/04 History of colon resection Onset Date: 09/15/13 Z90.49 History of hemorrhoidectomy Z98.890 History of right inguinal hernia repair Z98.890, Z87.19 History of squamous cell carcinoma excision Onset Date: 10/23/11 Z98.890, Z85.9 left orthodox with rhomboid transposition skin flap reconstruction History of tonsillectomy Z90.89 History of ureter stent Onset Date: 07/2008 Surgical History: coronary bypass surgery, - - hiatal hernia Psychiatric History: No pertinent psych hx Lives: Spouse/ Significant Other Smoking Status: Former smoker Alcohol: None Drugs: None - *Family History Maternal Family History: Family History (Last Updated 02/24/18 @ 13:42 by Gayle Humphrey) Father CVA (cerebral vascular accident) Brother Heart disease History Items: - - No stroke Paternal Family History: Family History (Last Updated 02/24/18 @ 13:42 by Gayle Humphrey) Father CVA (cerebral vascular accident) Brother Heart disease History Items: - - No stroke Review of Systems Constitutional: Reports: Weakness. Denies: Anorexia, Chills, Fever Eyes: Denies: Blurred vision, Double vision, Drainage, Redness HEENT: Denies: Difficulty Hearing, Ear Pain, Eye Pain, Nasal Congestion, Sore Throat Cardiovascular: Reports: Light Headedness. Denies: Chest Pain, Chest Pressure, Heaviness, Palpitations, Syncope Respiratory: Denies: Cough, Pleuritic Pain, Shortness of Breath, Sputum production, Wheezing Gastrointestinal: Denies: Abdominal Pain, Constipation, Diarrhea, Nausea, Vomiting Genitourinary: Denies: Dysuria, Frequency, Hematuria Musculoskeletal: Reports: Joint Pain - Reported right shoulder pain.. Denies: Arm Pain, Back Pain, Foot Pain Skin: Denies: Dryness, Rash Neurological: Denies: Balance problems, Blurred vision, Double vision, Change in Speech, Slurred speech, Confusion, Headaches, Incoordination, Numbness Psychiatric: Denies: Anxiety, Depression Endocrine: Denies: Change in Body Habitus, Polydipsia VTE Information - Inpt Only VTE Present on Admission: No VTE Mechan Device Prophylaxis: None VTE Pharm Prophylaxis ordered?: Yes - Physical Exam General: Alert, Oriented x3, Cooperative, No apparent distress HEENT: Atraumatic, PERRLA, EOMI, Normocephalic Oral: Moist Mucosa, No Gingival or Mucosal Lesions/ Ulcerations Neck: Supple, No JVD, Negative Carotid Bruits, Trachea Midline, Thyroid Normal Size and Texture Lungs: Clear to auscultation, No rhonchi, No wheeze, No rales, Diminished Cardiovascular: Regular rate, Regular Rhythm, Normal S1, Normal S2, PMI Normal Abdomen: Bowel Sounds Present, Soft, Non Tender, Non-Distended, No Hepato-splenomegaly Extremities: No clubbing, No cyanosis Skin: No rashes, - - Right flank abrasion. Lymphatic: No Cervical, Supraclavicular, or Inguinal Adenopathy Neurological: Cranial nerves II-XII grossly intact, Motor Exam 5/5 strength throughout Psych/Mental Status: Normal Affect, Appropriate Vital Signs Temp Pulse Resp BP Pulse Ox 96.3 F L 56 L 16 119/77 98 04/24/18 15:43 04/24/18 18:03 04/24/18 18:03 04/24/18 18:03 04/24/18 18:03 Oxygen Delivery Method Room Air Weight: 187 lb Body Mass Index (BMI) 30.2 Finger Stick Blood Glucose 103 Laboratory Tests Past 24 Hrs Clinical Impression(s) from Imaging Studies Brain CT 04/24/18 15:57 IMPRESSION: 1. No acute process. 2. Chronic left basal ganglia lacunar infarct. 3. Microvascular ischemic changes. Atrophy. Electronically Signed: Matilde Espinoza MD at 18:01 EST Tel , Service support , Abdomen/Pelvis CT 04/24/18 15:58 IMPRESSION: No acute traumatic findings in the abdomen or pelvis. Stable nonacute findings, as above. Electronically Signed: Robby Maguire, at 18:00 EST Tel , Service support , Assessment/Plan This is a 78 years old male patient presented to the emergency room because of frequent falls and dizziness and he is being admitted for physical debility, functional decline, dizziness probably due to bradycardia as well as mild dehydration. #1 frequent falls/physical debility/functional decline: Probably multifactorial secondary to age, multiple medical problems in addition to probable mild dehydration and bradycardia. EKG revealed sinus bradycardia, no evidence of cardiac arrhythmias or heart block. CT scan brain without acute findings. Apart from mild bradycardia, other vital signs are stable. Patient is not on beta-blockers. Patient complained of right shoulder pain. Plan: Admit to [facility] floor for observation, cardiac monitoring, gentle IV fluids for hydration, repeat EKG tomorrow morning, troponin x1, orthostatic vitals, repeat CBC and BMP tomorrow morning, x-ray right shoulder, PT OT evaluation and treatment, patient probably will need [facility]. #2 dizziness/mild dehydration: Apart from mild bradycardia, EKG was unremarkable. Apparently, patient has been having issues with dizziness not acutely. Creatinine is 1.33, he had a history of stage III chronic kidney disease, most recent creatinine was 1.1. Plan: Gentle IV fluids for hydration, repeat EKG tomorrow morning, input output chart, repeat BMP tomorrow morning. #3 CAD status post CABG and stents: Patient denies any chest pain, EKG reviewed, plan to continue aspirin, Plavix, continue ramipril and Zetia, repeat EKG tomorrow morning. #4 type 2 diabetes mellitus: ADA diet, Accu-Cheks, insulin scale, continue Actos, hemoglobin A1c. #5 hyperlipidemia: Continue Zetia. #6 stage III chronic kidney disease: Baseline creatinine has been around 1.1-1.4 mg/dL, admission creatinine 1.33. Clinically, patient is dehydrated. Plan for gentle IV fluid hydration, repeat BMP tomorrow morning. #7 dementia: Continue Aricept, supportive treatment. #8 DVT prophylaxis: Subcu heparin. This note was generated with [employer] dictation software. It may contain incorrect words, spelling, and punctuation that were not noted in checking the note before signing. Code Visit OBSV E AND M: 12057 Initial observation care L3 04/24/181921 <Electronically signed by George Pimentel MD> Date George Pimentel MD Cosigner Signature: Date (if applicable) CC: Daiana Andrew NP; George Pimentel Signed EMERGENCY DEPARTMENT Observed: 04/24/2018 Status: F Source: [facility] SUMMARY 6:30 PM [facility] REPOSITORY [facility] Medical Records Department [address] [place] [address] Emergency Department Summary 04/24/18 1825 MR#: [id number] Acct: [id number] Name: SERVANDO SHERIFF Rep #: [id number] : 1940 78 From: Venancio Frausto MD PCP: Daiana Andrew NP Status: REG ER - ER Visit Summary Date of Service: 04/24/18 Chief Complaint: Frequent falls History of Present Illness: The patient is a 78 M who presents with dizziness. states he stands any falls predominately to the left. He has history of chronic dizziness. He is on Plavix. He does bruise easily. states he felt early this morning and this afternoon. She was unable to help him off the floor and required assistance from his sons. He denies headache. He denies neck pain. He denies paresthesia, anesthesia motors. He does complain of back pain and abdominal pain. He has not a good informant secondary to dementia. Review of systems remarkable for blurred vision secondary to macular degeneration, abdominal pain, back pain, abrasion, generalized weakness and bruising easily. Past medical history of dementia, CVA, coronary disease, type 2 diabetes, hypercholesterolemia, hypothyroidism and GERD. Recent diagnosis of nephrolithiasis. He is status post three-vessel coronary bypass surgery and recent stent placement. He also has history of colonic volvulus and tonsillectomy. Physical Examination: Vital signs noted and remarkable for a temperature 96.3. Head is atraumatic normocephalic. Pupils are equal round reactive. Extraocular muscles are intact. TMs are pearly white with landmarks noted. Nares patent with no drainage. Posterior pharynx without erythema or exudate. Uvula is midline. There is no dysphonia or dysphasia. Trachea is midline. There is no stridor with auscultation of the neck. There is no pain the patient cervical spine. Heart is regular without murmur, gallop or rub. S1 and S2 are normal. Lungs are clear to auscultation with good movement of air bilaterally. There is an abrasion noted left pectoral area. There is also an abrasion with ecchymosis left costal margin. There is significant abrasion and ecchymosis right scapular region and right flank region. There is no pain the patient the pelvis. Neuro exam is nonfocal. He is not oriented, which apparently is baseline. Test Results: CT of the abdomen pelvis with IV contrast to evaluate for splenic injury was negative. Furthermore there was no evidence of hepatic or renal contusion. No findings of intra-abdominal injury. CT of the head reveals small vessel disease with no acute hemorrhage or stroke. EKG sinus bradycardia rate of 53 with normal NM interval, QRS duration, QT interval and axis. This is unchanged from February 2016. CBC is normal. Basic medical panel reveals creatinine of 1.33. No laboratory tests have been obtained the last 24 months. Urinalysis unremarkable. Emergency Department Course and Treatment: CT of the head was obtained since he had 2 recent falls in with complaints of dizziness and falling to the left to evaluate for CVA. Onset is unknown. CT of the abdomen was obtained to evaluate for splenic injury. UA to assess for hematuria secondary to the flank contusion. CBC was obtained to assess for anemia white count was suggest infectious cause of his generalized weakness and falling as well as dizziness. Patient minimal panel was obtained since he will require CT with IV contrast to assess renal function. GFR was 55. Treatment Plan: Since patient cannot stand without falling and requires grants and contracts assistant of sons to come to the house to get him off the floor the hospitalist was paged for inpatient observation and further workup and PT eval Disposition: Medical surgical unit with telemetry Impression: 1. Multiple falls 2. Multiple abrasions contusion to the torso and right lower extremity 3. History of coronary disease 4. History of CVA 5. History of type 2 diabetes 6. History of hypercholesterolemia 7. History of hypothyroidism 7. Hypothermia 8. Renal insufficiency chronicity unknown This note was generated with [employer] dictation software. It may contain incorrect words, spelling, and punctuation that were not noted in review of the chart prior to signing ED Disposition - Plan for ED Patient: Chief Complaint: Fall Referrals: Daiana Andrew, TURN OPERATOR-C [Primary Care Provider] - What to do if you have Problems For any increased pain, shortness of breath, bleeding, nausea or vomiting, chest pain, or any unexpected problems, contact your Primary Care Provider. Call [facility] ([phone]) or report to the closest Emergency Room. Call 911 if necessary. 04/24/18 1830 <Electronically signed by Venancio Frausto MD> Date Venancio Frausto MD Cosigner Signature (If Indicated): Date CC: Daiana Andrew TURN OPERATOR URINALYSIS, COMPLETE Collected: 04/24/2018 Status: F Source: [facility] 5:46 PM [facility] REPOSITORY Order Comment: Order Date: 04/24/18 How was Urine Obtained? DIET TECHNICIAN REGISTERED TO SPECIFY TYPE CODE TESTS RESULT OUT OF RANGE REFERENCE UNITS LAB L400.3000 Yellow COLOR Normal Yellow LAB L400.3050 Clear Normal CLARITY Sl. Cloudy LAB L400.3200 Normal mg/dl Normal GLUCOSE, UR Normal LAB L400.3300 Negative mg/dL Normal BILIRUBIN URINE Negative LAB L400.3400 Negative mg/dl Normal KETONE UR Negative LAB L400.3465 1.002-1.030 Normal SP.GR. DIPSTX 1.015 LAB L400.3550 5.0 - 8.0 pH UR Normal 6.0 LAB L400.3600 Negative mg/dl PROT Normal DIPSTX Negative LAB L400.3700 Normal mg/dl High 1 UROBILI LAB L400.3750 Negative Normal NITRITE UR Negative LAB L400.3780 Negative /ul Normal OCCULT BLOOD-UR Negative LAB L400.3800 Negative /ul High LEUK 25 ESTERASE LAB L400.4050 0-5 /hpf WBC Normal 5-10 SEEN LAB L400.4100 0-5 /hpf 0 Normal RBC-UA SEEN LAB L400.4150 0-5 /hpf SQUAM Normal EPI 0-5 SEEN LAB L400.4300 None Seen /hpf Normal BACTERIA RARE LAB L400.4350 <or=2+ /hpf 0 Normal MUCUS, URINE SEEN Performed By: #### L400.0001 #### [facility] [address] [place], [place], [id number] CBC W/DIFF, AUTOMATED Collected: 04/24/2018 Status: F Source: [facility] 4:15 PM [facility] REPOSITORY TYPE CODE TESTS RESULT OUT OF RANGE REFERENCE UNITS LAB L100.1000 4.4-11.0 K/mm3 Normal WBC 5.8 LAB L100.1200 4.6-6.2 M/mm3 Normal RBC 4.69 LAB L100.1300 13.0-16.5 g/dl Normal HGB 13.1 LAB L100.1400 40-54 % Normal HCT 42.7 LAB L100.1500 80-94 fL Normal MCV 91.0 LAB L100.1600 27.0-32.0 pg Normal MCH 27.9 LAB L100.1700 32-36 g/gl Low MCHC 30.7 LAB L100.1810 11.6-14.6 % High RDW CV 15.3 LAB L100.1820 35.1-43.9 fl High RDW SD 50.4 LAB L100.1900 150-450 K/mm3 Normal PLT 155 LAB L100.2000 6.2-12.0 fl Normal MPV 11.4 LAB L100.2100 47-70 % Normal NEUT% 65.5 LAB L100.2200 19-41 % Normal LY% 22.5 LAB L100.2300 0-10 % Normal MONO% 8.4 LAB L100.2400 0-5 % Normal EO% 3.1 LAB L100.2500 0-1 % Normal BASO% 0.5 LAB L100.2550 0.0-0.9 % Normal IM GRAN % 0.000 Result Comment: IG% - Immature Granulocytes (promyelocytes, myelocytes and metamyelocytes) > 1% indicates that a LEFT SHIFT is Present. LAB L100.2620 2.0-7.7 X10 3/uL Normal Absolute Neut 3.8 LAB L100.2720 0.83-4.51 X10 3/ul Normal Absolute Lymph 1.31 Performed By: #### L100.0100 #### [facility] [address] [place], [address] BASIC METABOLIC Collected: 04/24/2018 Status: F Source: [facility] PROFILE ([facility]) 4:15 PM [facility] REPOSITORY TYPE CODE TESTS RESULT OUT OF RANGE REFERENCE UNITS LAB L501.0100 74-106 mg/dL Normal GLU 96 Result Comment: Please note revised GLUCOSE reference range effective 2017. LAB L501.1000 7-18 mg/dL Normal BUN 15 LAB L501.1100 0.70-1.30 mg/dL High CREAT,SERUM 1.33 Result Comment: The validity of the calculated GFR AND GFRAA in patients over 70 years has not been determined. Clinical correlation is essential. LAB L501.1110 >60 mL/min Low EST GFR 55 Result Comment: Non- GFR Calc LAB L501.1115 >60 mL/min Normal EST GFR - AA 67 Result Comment: GFR Calc LAB L501.1255 ml/min Normal Estimated CRCL 40.64 LAB L501.1300 10-20 RATIO Normal BUN/CRE 11.3 LAB L501.2200 8.5-10 mg/dL Normal .1 CA 8.8 LAB L501.5300 136-14 mmol/L Normal 5 NA 143 LAB L501.5600 3.5-5. mmol/L Normal 1 K 3.9 LAB L501.5900 98-107 mmol/L Normal CL 106 LAB L501.6100 21.0-3 mmol/L Normal 2.0 CO2 28.0 LAB L501.6200 5-15 Normal GAP 9 Performed By: #### L500.2500 #### [facility] [address] [place], [address] THYROID STIM HORMONE Collected: 04/24/2018 Status: F Source: [facility] ([facility]) 4:15 PM [facility] REPOSITORY TYPE CODE TESTS RESULT OUT OF RANGE REFERENCE UNITS LAB L501.9520 0.358-3.74 uIU/mL Normal TSH 3.64 Performed By: #### L501.9520 #### [facility] [address] [place], [address] HEMOGLOBIN A1C Collected: 04/24/2018 Status: F Source: [facility] 4:15 PM [facility] REPOSITORY TYPE CODE TESTS RESULT OUT OF RANGE REFERENCE UNITS LAB L501.9985 4.2-6.3 % Normal HGB A1C 6.2 Performed By: #### L501.9985 #### [facility] [address] [place], [address] ABDOMEN/PELVIS W IV CONT Observed: 04/24/2018 Status: F Source: [facility] ONLY 3:59 PM [facility] REPOSITORY [facility] Imaging Services [address] [place] [address] Abdomen/Pelvis W IV Cont ONLY MR#: [id number] Acct: [id number] Name: SERVANDO SHERIFF Celio Rep #: [id number] : 1940 M 78 From: Robby Maguire MD PCP: Daiana Andrew NP Status: REG ER Study: Abdomen/Pelvis W IV Cont ONLY Date of Exam: 04/24/18 Exam# [id number] Ordering Dr: Venancio Frausto MD STUDY: CT ABDOMEN AND PELVIS WITH CONTRAST REASON FOR EXAM: Male, 78 years old. Fall RADIATION DOSAGE (If Supplied By Facility): CTDIvol = ( 18.67 ) mGy, DLP = ( 972.46 ) mGycm TECHNIQUE: Transaxial images were obtained from the dome of the diaphragm to the symphysis pubis without oral contrast. 100ML ml of Isovue 300 contrast was administered. Sagittal and coronal images were reconstructed. Individualized dose optimization techniques were used for this CT. COMPARISON: 04/19/2018 FINDINGS: The visualized lung bases are clear. The visualized portions of the heart and pericardium are within normal limits. There are no calcified gallstones present. The liver is within normal limits. There are no suspicious hepatic lesions. The spleen is normal in size. The pancreas is within normal limits. The adrenal glands are within normal limits. There are stable bilateral subcentimeter nonobstructing renal collecting system stones. There are no ureteral stones. There is no hydronephrosis. There are stable bilateral renal cysts, some of which are complex and not fully characterized on this exam. There is a stable hiatal hernia. There is no bowel obstruction or inflammation. Again noted is gaseous distention of the colon. The appendix is not visualized, but there are no findings to suggest acute appendicitis. The aorta is normal in caliber. There is no abdominal or pelvic free air, free fluid, fluid collection or lymphadenopathy. There is a stable mild compression deformity of the L1 vertebral body. There is no evidence of acute fracture or dislocation in visualized osseous structures of the abdomen and pelvis. CT/Abdomen/Pelvis W IV Cont ONLY IMPRESSION: No acute traumatic findings in the abdomen or pelvis. Stable nonacute findings, as above. Electronically Signed: Robby Maguire, at 18:00 EST Tel , Service support , CC: Daiana Andrew NP; Venancio Frausto MD [employer] Assistant: Signed BRAIN/HEAD WITHOUT Observed: 04/24/2018 Status: F Source: [facility] CONTRAST 3:59 PM [facility] REPOSITORY [facility] Imaging Services [address] [place] [address] Brain/Head without Contrast MR#: [id number] Acct: [id number] Name: SERVANDO SHERIFF Rep #: [id number] : 1940 M 78 From: Matilde Espinoza MD PCP: Daiana Andrew NP Status: REG ER Study: Brain/Head without Contrast Date of Exam: 04/24/18 Exam# [id number] Ordering Dr: Venancio Frausto MD STUDY: CT BRAIN WITHOUT CONTRAST REASON FOR EXAM: Male, 78 years old. Fall, confusion. RADIATION DOSAGE (If Supplied By Facility): CTDIvol = ( 44.99 ) mGy, DLP = ( 796.11 ) mGycm TECHNIQUE: Transaxial CT imaging of the brain was performed without administration of intravenous contrast material. Individualized dose optimization techniques were used for this CT. COMPARISON: CT brain 02/27/2016. FINDINGS: Normal soft tissue structures. Normal calvarium. There is severe cerebral atrophy with widening of the extra- axial spaces and ventricular dilatation. There are areas of decreased attenuation within the white matter tracts of the supratentorial brain, consistent with microvascular disease changes. Normal basal ganglia and thalami. Normal brainstem. Normal cerebellum. There is no intracranial hemorrhage. There are no findings of an acute ischemic infarction. There is a chronic left basal ganglia infarct. Normal visualized paranasal sinuses. CT/Brain/Head without Contrast IMPRESSION: 1. No acute process. 2. Chronic left basal ganglia lacunar infarct. 3. Microvascular ischemic changes. Atrophy. Electronically Signed: Matilde Espinoza MD at 18:01 EST Tel , Service support , CC: Daiana Andrew NP; Venancio Frausto MD [employer] Assistant: Signed ABDOMEN/PELVIS WITHOUT Observed: 04/19/2018 Status: F Source: [facility] CONT 12:45 PM [facility] REPOSITORY [facility] Imaging Services [address] [place] [address] Abdomen/Pelvis without Cont MR#: [id number] Acct: [id number] Name: SERVANDO SHERIFF Rep #: [id number] : 1940 M 78 From: Meka Segura MD PCP: Daiana Andrew NP Status: REG CLI Study: Abdomen/Pelvis without Cont Date of Exam: 04/19/18 Exam# [id number] Ordering Dr: Nico Ordoñez MD STUDY: CT ABDOMEN AND PELVIS WITHOUT CONTRAST REASON FOR EXAM: Male, 78 years old. Gross hematuria RADIATION DOSAGE (If Supplied By Facility): CTDIvol = ( 14.02 ) mGy, DLP = ( 743.85 ) mGycm TECHNIQUE: Transaxial images were obtained from the dome of the diaphragm to the symphysis pubis without oral contrast, and without intravenous contrast. Sagittal and coronal images were reconstructed. Individualized dose optimization techniques were used for this CT. COMPARISON: September 15, 2013 FINDINGS: There is minimal bilateral dependent atelectasis and/or scarring. There are coronary artery calcifications present. There are sternotomy wires present. Normal liver. Normal gallbladder and extrahepatic biliary system. Normal spleen. Normal pancreas. Normal bilateral adrenal glands. There are grossly stable peripherally calcified cysts within the right kidney the larger measuring up to 5.8 cm. There are additional simple cysts within the right kidney noted as well. There is a nonobstructing 7.3 mm right renal calculus. There is mild distal hydroureter secondary to a 4 mm calculus within the distal ureter. There are left renal cysts. There are nonobstructing left renal calculi measuring up to 5.6 mm. There is a small hiatal hernia. Normal small intestine. Normal colon. There is non-visualization of the appendix. There is diffuse atherosclerotic calcification of the abdominal aorta, without a demonstrated aneurysm. Normal inferior vena cava. Normal retroperitoneum. Normal urinary bladder. Normal abdominal wall. There are diffuse degenerative changes of the visualized lumbar spine. There is a mild L1 compression deformity not significantly changed since the prior examination. CT/Abdomen/Pelvis without Cont IMPRESSION: Mild distal right hydroureter associated with a 4.0 mm calculus within the distal ureter. Bilateral nonobstructing renal calculi measuring up to 7.3 mm on the right. Bilateral renal cysts. Atherosclerosis. Degenerative changes. Hiatal hernia. Electronically Signed: Meka Segura MD at 14:02 EST Tel , Service support , CC: Daiana Andrew NP; Nico Ordoñez MD [employer] Assistant: Signed Observed: 04/08/2018 Status: F Source: [facility] CULTURE, URINE 2:00 PM [facility] REPOSITORY Urine Culture Below infection level. ORGANISM 1: Mixed Gram Pos AND Gram Neg Org [place] Count <1000 Performed By: #### M100.0650 #### [facility] [address] [place] [address]. [place], [place], [address] CARDIOLOGY VISIT Observed: 02/24/2018 Status: F Source: [facility] REPORT 3:11 PM [facility] REPOSITORY [facility] [address] [place] [address] OFFICE VISIT Date of Service: 02/24/18 MR#: [id number] Acct: [id number] Name: SERVANDO SHERIFF Rep #: [id number] : 1940 Provider: TALIB Francis Age/Sex: 78/M [facility] [facility] [place]: Signed HPI HPI Details: SERVANDO SHERIFF, is a 78 M who presents to the office today for a cardiovascular outpatient follow-up. He has a history of coronary artery disease status post bypass surgery in 2002 with an MACIAS to LAD, left radial to obtuse marginal, and SVG to PDA and successful angioplasty and stenting to 75% stenosis of proximal LAD, proximal diagonal at the bifurcation, and successful atherectomy and successful stenting to 80% stenosis in mid first diagonal artery in April 2011. He also has a history of ischemic cardiomyopathy, which is resolved, hypertension, and hyperlipidemia. Pt. denies chest, arm, jaw, or neck discomfort. He states prior to cardiac intervention he generally felt ill. His exercise tolerance is very minimal. Pt. denies symptoms of CHF, palpitations, near syncope, or syncopal episodes. Pt. denies edema or claudication issues. Pt. denies orthopnea, PND, or myalgia. He states lightheadedness and dizziness with position changes. Intake Vital Signs02/24/18 Height 5 ft 8 in 02/24/18 Weight: 186 lb 02/24/18 Body Mass Index (BMI) 28.3 02/24/18 Blood Pressure 98/56 L Intake Visit Reasons: overdue for OV to refill meds/pt has dementia Intensive Care Nurse Required: No Accompanied by: Is patient in pain?: No Allergies iodine Allergy (Verified 02/24/18 13:39) Hives Penicillins Adverse Reaction (Verified 02/24/18 13:39) Rash Medications Aspirin E.C. [Ecotrin] 81 mg PO DAILY@0800 09/15/13 [History Confirmed 02/24/18] Escitalopram Oxalate [Lexapro] 10 mg PO DAILY 09/15/13 [History Confirmed 02/24/18] Pioglitazone [Actos] 30 mg PO DAILY 09/15/13 [History Confirmed 02/24/18] Donepezil HCl [Aricept] 10 mg PO QHS 02/27/16 [History Confirmed 02/24/18] Oxybutynin [Ditropan] 10 mg PO DAILY 02/27/16 [History Confirmed 02/24/18] ezetimibe 10 mg tablet 10 mg PO DAILY #90 tab 06/18/17 [Rx Confirmed 02/24/18] ramipril 5 mg capsule 5 mg PO DAILY #90 cap 07/28/17 [Rx Confirmed 02/24/18] clopidogrel 75 mg tablet 75 mg PO DAILY #90 tab 02/24/18 [Rx Confirmed 02/24/18] docusate sodium 100 mg capsule 100 mg PO DAILY PRN cap 02/24/18 [History] Ejection fraction %: 60 to 64 PFSH Medical History Pure hypercholesterolemia (Chronic) Atherosclerosis of cabazon coronary artery of cabazon heart without angina pectoris (Chronic) GERD (gastroesophageal reflux disease) (Chronic) DM2 (diabetes mellitus, type 2) (Chronic) CVA (cerebral vascular accident) (Resolved) CKD (chronic kidney disease) stage 3, GFR 30-59 ml/min (Chronic) Dementia (Chronic) Colonic volvulus (Acute) Mild intermittent asthma (Chronic) Nephrolithiasis (Chronic) History of Gerard's esophagus (Chronic) History of asthma (Chronic) History of irritable bowel syndrome (Chronic) Hypothyroidism (Chronic) Surgical History History of angioplasty (Chronic 11/06/89) 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) H/O percutaneous transluminal coronary angioplasty (Chronic 05/13/11) History of cardiac catheterization (Chronic 03/2002) History of colon resection (Resolved 09/15/13) History of hemorrhoidectomy (Resolved) History of right inguinal hernia repair (Resolved) History of squamous cell carcinoma excision (Resolved 10/23/11) History of tonsillectomy (Resolved) History of ureter stent (Resolved 07/2008) Family History Father CVA (cerebral vascular accident) Brother Heart disease Social History Smoking Status: Former smoker how long ago did patient quit smokin alcohol intake: current alcohol intake frequency: holidays/special occasions only Alcohol type: wine caffeine: Yes Type: coffee Number of servings: 3, carbonated beverages Number of servings: 2 ROS Const Const: Negative for fatigue, weakness, body ache, fever(s) or chills ENT ENT: Positive for dizziness Cardio Chest Pain: No Palpitations: No Edema: None Muscle aches with walking: None Resp Respiratory: Negative for SOB with activity, SOB at rest, SOB orthopnea\SOB lying down or paroxysmal nocturnal dyspnea GI GI: Negative nausea, black,tarry stools, bright, red blood in stools or vomiting blood/hematemesis [...] average body habitus and well nourished Orientation: alert, awake and oriented x3 Head Head: normal to inspection Ears: hearing grossly normal bilaterally Nose: external nose normal Face and Sinus: face symmetric Mouth: oral mucosae normal Eyes General: appearance normal, both eyes and all related structures Eyelids: eyelids normal EOM: EOM intact bilaterally Neck Neck: no JVD and normal visual inspection Carotids: normal carotid upstroke Chest Chest inspection: normal inspection of the chest and normal respiratory effort; negative cough Auscultation: Bilateral: Clear to Auscultation Cardio Rate: regular rate Rhythm: regular rhythm Heart sounds: S1 normal and S2 normal; negative rub, gallop or murmur GI GI: normal to inspection Neuro General: alert, awake, oriented x3 and CN's II-XI intact bilaterally Skin Skin: no rashes or lesions noted Extremities Pulses: Normal: Right Posterior Tibial Pulse, Left Posterior Tibial Pulse, Right Radial Pulse, Left Radial Pulse Lower Extremity Edema: None: Bilateral Psych Psychological: normal affect Supplemental Info Heart catheterization from April 2011 showed patent SVG to posterior descending artery, patent radial graft to first obtuse marginal artery, and patent MACIAS to LAD. This resulted in successful angioplasty and stenting to 75 stenosis of proximal LAD and proximal diagonal at the bifurcation. He also underwent successful atherectomy and successful stenting to 80% stenosis in mid first diagonal artery. Echocardiogram from February 2016 showed an estimated ejection fraction of 65%, mildly enlarged left atrium, moderate mitral annular calcification, extension of the mitral and a consultation onto the posterior mitral leaflet, trivial mitral valve insufficiency, tricuspid valve insufficiency, aortic sclerosis, no stenosis, and an RVSP of 33 mmHg. Assessment AND Plan 1. Atherosclerosis of cabazon coronary artery of cabazon heart without angina pectoris I25.10 MACIAS to LAD, aortocoronary left radial artery to obtuse marginal artery, SVG to PDA; Plan Patient denies any chest pain, arm pain, jaw pain, neck pain, shortness of breath, or fatigue suggestive of angina at this time. We will continue to monitor this. We will not make any medication regimen changes and will continue risk factor modification. 2. History of angioplasty Z98.62 Angioplasty and stenting to 70% stenosis in proximal LAD, angioplasty and stenting to proximal diagonal LAD at bifurcation, and atherectomy and stenting to 80% stenosis in mid first diagonal artery in April 2011. Plan He will continue current treatment plan as outlined above. He was reminded at his advanced age and history of falls in the past that from a stenting perspective his Plavix could be discontinued. At this time patient has not had any side effects associated with it and will continue. 3. S/P CABG x 3 Z95.1 MACIAS to LAD, aortocoronary left radial artery to obtuse marginal artery, SVG to PDA Plan His heart catheterization April 2011 showed patent SVG to posterior descending artery, patent radial graft to first obtuse marginal artery, and patent MACIAS to LAD. 4. Pure hypercholesterolemia E78.00 Plan This is being monitored by primary care provider. He will continue with current cholesterol-lowering medication. Plan Detail Other Medications New: Additional Comments Thank you for allowing us to participate in the patient's plan of care, if you have any questions please do not hesitate to call. This note was generated using a voice recognition system and there may be incorrect words, spelling, or punctuation that were not noted upon reviewing the office note prior to saving. Follow Up 12 Months (PFM) Coding Level of Care Code Off vis,est,level 3 Diagnoses Atherosclerosis of cabazon coronary artery of cabazon heart without angina pectoris I25.10 History of angioplasty Z98.62 S/P CABG x 3 Z95.1 Pure hypercholesterolemia E78.00 Coding Level of Care Code Off vis,est,level 3 Diagnoses Atherosclerosis of cabazon coronary artery of cabazon heart without angina pectoris I25.10 History of angioplasty Z98.62 S/P CABG x 3 Z95.1 Pure hypercholesterolemia E78.00 02/24/18 1511 <Electronically signed by Dharmesh CLEARY> Date Dharmesh CLEARY Cosigner Signature: Date (if applicable) CC: Daiana Andrew NP CASE MANAGEM Observed: 09/16/2017 Status: COMPLETED Source: [facility] 5:12 PM CLINIC OTHER CAMPUS REPOSITORY HNO ID: [id number] Author: Rissa (Rn) EMA Cole Service: Case Management Author Type: Registered Nurse Type: Care Mgt Progress Note Filed: 09/17/2017 9:33 AM Note Text: CARE MANAGEMENT DISCHARGE NOTE SERVICE DATE: 09/17/2017 SERVICE TIME: 9:28 AM LOS: 0 days Admission Date: 09/14/2017 DISCHARGE ARRANGEMENT (list agency and phone number) Home Provider: belle Phone: na CAREGIVER ASSESSMENT: Caregiver is ready, willing and able to meet the patient's needs as recommended by the inter-professional team? Yes Patient's transition needs and plan for meeting these needs: home with supportive family, declined HHC Does the patient have an acute stroke diagnosis, or has the patient had a stroke during this admission? No HANDOFF COMMUNICATION: Primary Care Physician: Dr. Aguiar TRANSPORTATION ARRANGEMENTS: Car Family will transport ADDITIONAL CONTACT RESOURCES: na Discharge Information Row Name ED to Hosp-Admission (Discharged) from 09/14/2017 in [facility] Follow-Up Appointment Specialty PCP Provider Name Dr. Daaina Andrew Address [address] [place] [address] [place] [address], [facility] [address] Appointment Date 09/22/17 Appointment Time 8:00am Additonal Instructions Patient should bring the following to appointment: Picture ID, Insurance Card, Copay (if applicable), Medications/Med List. Please provide a minimum of 24 hours' notice for cancelations/rescheduling. Per office, Dr. Ahmadi is your PCP Needs Prior to Discharge: Ready for Discharge Discharge order written for today, patient discharged home with no services. Patient and family declined HHC. Family will transport SIGNATURE: Rissa Cole RN PATIENT NAME: Servando Sheriff DATE: September 17, 2017 TIME: 9:28 AM PAGER/CONTACT #: [phone] CNDS Observed: 09/16/2017 Status: COMPLETED Source: [place] 5:12 PM CLINIC OTHER CAMPUS REPOSITORY HNO ID: [id number] Author: Richar Combs Service: General Internal Medicine Author Type: Physician Type: Discharge Summaries Filed: 01/16/2018 6:35 PM Note Text: DISCHARGE SUMMARY PATIENT NAME: Servando Sheriff Code Status: Not on file Highest Readmission Risk Score: 15 The 30 day readmissions risk score is derived from an internally validated risk model which evaluates patient level characteristics, utilization history, medication orders and lab results up until the day of discharge. Patients with a score of 40 or above are considered highest risk for readmission. Specific patient level drivers will be listed at the bottom of the summary. Admission Information Admission Information ADMIT DATE: 09/14/2017 DISCHARGE DATE: 09/16/2017 MY DOCTORS AND MEDICAL TEAM: My Main Hospital Doctor: Richar Combs Primary Care Provider: Kasey Aguiar MD My Medical Team Members: Treatment Team: Attending Provider: Richar Combs Consulting: Doc Byers Jr. MY CONDITION AT DISCHARGE: Stable REASON I WAS IN THE HOSPITAL: TIA SUMMARY OF WHAT HAPPENED WHILE I WAS IN THE HOSPITAL: You were on observation on a telemetry monitored bed. You were evaluated by neurologist and suspected to have TIA. Your evaluation included MRI AND MRA of brain, MRA of carotid arteries, Echocardiogram, EEG and telemetry monitoring. Aspirin has been changed to Plavix (Clopidogrel) and Atorvastatin started. Metoprolol dose reduced as significant sinus bradycardia (slo heart rate) was noted on telemetry with heart rate in the low 40's. This has improved. You are now stable to return home. OTHER PROBLEMS/DIAGNOSIS: Principal Problem: TIA (transient ischemic attack) Active Problems: Sinus bradycardia Coronary artery disease Chronic kidney disease, stage 3, mod decreased GFR Dementia Cerebrovascular disease Abnormal thyroid function test DM2 (diabetes mellitus, type 2) ([facility]) Resolved Problems: * No resolved hospital problems. * OPERATIONS PERFORMED WHILE IN THE HOSPITAL: None IMPORTANT TEST/PROCEDURES: Echocardiogram EEG MRI AND MRA of brain MRA of carotid artery Carotid Duplex TEST RESULTS NOT AVAILABLE AT THIS TIME: Culture results Discharge Disposition Discharge Disposition: Home With Home Care Diet Instructions Diabetic No Added Salt Follow Up Appointments Follow-Up Appointment When: In 1 week Patient/Parents to call for appointment?: Yes Kasey Aguiar [phone] [place] [address] [address] [facility] [id number] PCP Requested Referral FOLLOW-UP APPOINTMENTS ALREADY SCHEDULED WITH A [facility] PROVIDER: No future appointments. Discharge Information Row Name ED to Hosp-Admission (Discharged) from 09/14/2017 in [facility] Medical Follow-Up Appointment Specialty PCP Provider Name Dr. Daiana Andrew Address [address] [facility] [address] [facility], [facility] [address] Appointment Date 09/22/17 Appointment Time 8:00am Additonal Instructions Patient should bring the following to appointment: Picture ID, Insurance Card, Copay (if applicable), Medications/Med List. Please provide a minimum of 24 hours' notice for cancelations/rescheduling. Per office, Dr. Ahmadi is your PCP ALLERGIES Allergen Reactions - Iodine Hives - Penicillin Rash DISCHARGE MEDICATION: Discharge Medication List as of 09/16/2017 4:46 PM START taking these medications atorvastatin (LIPITOR) 40 mg tablet Take 1 tablet by mouth daily at bedtime. Print RX, Disp-30 tablet, R-0, Long-term clopidogrel (PLAVIX) 75 mg tablet Take 1 tablet by mouth once daily. Print RX, Disp-30 tablet, R-0 acetaminophen (TYLENOL) 325 mg tablet Take 2 tablets by mouth every 6 hours as needed for Pain. OTC CONTINUE these medications which have CHANGED metoprolol succinate ER (TOPROL XL) 25 mg 24 hr tablet Take 0.5 tablets by mouth once daily. Med Update, R-0, Long-term nitroglycerin sublingual (NITROSTAT) 0.4 mg SL tablet Dissolve 1 tablet under the tongue every 5 minutes as needed for Chest Pain. Med Update, Long-term CONTINUE these medications which have NOT CHANGED donepezil (ARICEPT) 10 mg tablet Take 10 mg by mouth once daily. Historical Med ZETIA 10 mg tablet Take by mouth once daily. Historical Med pioglitazone (ACTOS) 30 mg tablet Take by mouth once daily. Historical Med ramipril (ALTACE) 5 mg capsule Take by mouth once daily. Historical Med escitalopram oxalate (LEXAPRO) 10 mg tablet Take by mouth once daily. Historical Med STOP taking these medications aspirin 81 mg chewable tablet Comments: Reason for Stopping: Physical exam: BP 95/57 Pulse 66 Temp 36.9 ?C (98.4 ?F) (Oral) Resp 20 Ht 175.3 cm (5' 9) Wt 85.3 kg (188 lb 0.8 oz) SpO2 99% BMI 27.77 kg/m? GENERAL: Alert, no distress, cooperative HEAD/SINUSES: No significant findings EYES: EOMI, MELANIE LUNGS: Lungs clear to auscultation CARDIAC: No murmur, Regular ABDOMEN: Abdomen soft, non-tender EXTREMITIES: No edema, pallor or cyanosis NEURO: AAO, normal speech, no gross focal weakness The patient's risk for 30-day readmission is determined using the following contributing factors: Pt variables contributing to increased readmission risk: 14 Most Recent BUN Result 8.9 First Resulted Calcium During Admission 1 Previous ED Visit (6 mos.)? 1 Number of Previous ED Visits (6 mos.) 1 Insurance - Medicare 1 Discharge Disposition - Home Health Care 1 Barriers to Health Literacy Identified SIGNATURE: Richar Combs MD PAGER/CONTACT #: DATE: January 16, 2018 TIME: 6:34 PM CONSULT PROG Observed: 09/16/2017 Status: COMPLETED Source: [place] 4:33 PM CLINIC OTHER CAMPUS REPOSITORY HNO ID: [id number] Author: Doc Byers Jr. Service: Neurology Author Type: Physician Type: Consult Progress Note Filed: 09/16/2017 6:31 PM Note Text: INPATIENT PROGRESS NOTE SERVICE DATE: 09/16/2017 SERVICE TIME: 4:33 PM Subjective SERVICE: Neurology INTERVAL HPI: No issues overnight. MRI brain completed and I have reviewed the images that show no evidence of an acute intracranial process but moderate . Per radiology report: No evidence for acute infarct identified. There is moderate hyperintensity on T2-weighted and FLAIR images involving the supratentorial white matter which is nonspecific however likely represents chronic microvascular ischemia. Focal prominence of MRA flow signal at the level of the left MCA bifurcation may represent tortuous vascularity, however aneurysm at this level cannot be entirely excluded and further evaluation with CTA of the head could be obtained if clinically warranted. No hemodynamically significant stenosis is noted at the carotid bifurcations. EEG completed and per report: This EEG shows evidence for bilateral cerebral dysfunction maximum in ? the right hemisphere. No epileptiform discharges or EEG seizures were ? recorded. ECHO per report: - Technically difficult exam due to body habitus and suboptimal positioning. - Exam indication: TIA - The left ventricle is normal in size. Left ventricular systolic function is normal. EF is 66% without any wall motion abnormalities. (2D biplane) Definity contrast used for endocardial?border detection. - The right ventricle is normal in size. Right ventricular systolic function is normal. - The left atrial cavity is mildly dilated. - There is mild (1+) TR. - There is mild (1+) AI Mitral annular calcification is present Mild aortic stenosis is noted with valve area around 1.4 sq cm - Saline contrast was negative for an intracardiac shunt. (clip98) - The patient has not had a prior CC echocardiographic exam for comparison. Current hospital medications: acetaminophen 650 mg tab(s) (TYLENOL) 650 mg ORAL q 6 H PRN donepezil 10 mg tab(s) (ARICEPT) 10 mg ORAL DAILY escitalopram oxalate 10 mg tab(s) (LEXAPRO) 10 mg ORAL DAILY nitroglycerin sublingual 0.4 mg tab(s) (NITROQUICK) 0.4 mg SUBLINGUAL q 5 MIN PRN pioglitazone 30 mg tab(s) (ACTOS) 30 mg ORAL DAILY ramipril 5 mg cap(s) (ALTACE) 5 mg ORAL DAILY ezetimibe 10 mg tab(s) (ZETIA) 10 mg ORAL DAILY metoprolol succinate ER 12.5 mg tab(s) (TOPROL XL) 12.5 mg ORAL DAILY atorvastatin 40 mg tab(s) (LIPITOR) 40 mg ORAL AT BEDTIME clopidogrel 75 mg tab(s) (PLAVIX) 75 mg ORAL DAILY Objective PHYSICAL EXAM: GENERAL EXAM: General appearance: NAD, pleasant. HEENT: NC/AT, nasal congestion absent, no oral lesions, membranes moist. NECK: No masses, supple. Lungs: CTA bilaterally. No wheezes present. CV: Amaury, S1S2 no murmurs. Abd: Soft, nontender, nondistended. Bowel sounds present. Extr: No cyanosis, clubbing or edema. No evidence of fasciculations. Distal extremity pulses 1+. Capillary refill <2 sec. No calf tenderness. Skin: Cool to touch. No rash. ? NEUROLOGICAL EXAM: General: Awake, alert, oriented x3 (person,place,time), language fluent, no dysarthria; comprehension, naming, repetition intact. Slow to answer questions - baseline since prior stroke) CN: PERRL, EOMI and without nystagmus, VFF to confrontation, facial sensation and strength are normal and symmetric, hearing is intact to finger rub bilaterally, palate and tongue movements are intact and symmetric. SCM and trapezius strength normal. Motor: Normal tone, bulk and strength (5/5) bilaterally (throughout extremities x4). Reflexes: 1/4 and symmetric, plantar stimulation is extensor bilateral. Coordination: FNF, MARIPOSA, HTS intact. No tremors. Sensation: Light touch, pin intact throughout. No evidence of neglect. Patient Vitals for the past 24 hrs: BP Temp Temp src Pulse Resp SpO2 Weight 09/16/17 1600 95/57 36.9 ?C (98.4 ?F) Oral 66 20 99 % - 09/16/17 1200 134/62 36.6 ?C (97.8 ?F) Oral 76 18 96 % - 09/16/17 0800 135/55 36.9 ?C (98.4 ?F) Oral 76 18 97 % - 09/16/17 0600 - - - - - - 85.3 kg (188 lb 0.8 oz) 09/16/17 0400 147/67 36.7 ?C (98.1 ?F) Oral 61 18 97 % - 09/16/17 0000 161/70 36.4 ?C (97.6 ?F) Oral 60 19 96 % - 09/15/17 2200 151/71 36.4 ?C (97.5 ?F) Oral (!) 59 19 97 % - 09/15/17 2000 142/73 36.6 ?C (97.8 ?F) Oral 61 18 98 % - Body mass index is 27.77 kg/m?. DATA: Diagnostic tests reviewed for today's visit: Most recent labs and imaging results. WBC (k/uL) Date Value 09/16/2017 5.24 09/15/2017 4.80 09/14/2017 5.52 RBC (m/uL) Date Value 09/16/2017 3.96 09/15/2017 3.78 09/14/2017 4.02 Platelet Count (k/uL) Date Value 09/16/2017 169 09/15/2017 182 09/14/2017 196 BUN (mg/dL) Date Value 09/16/2017 14 09/15/2017 18 09/14/2017 19 Creatinine (mg/dL) Date Value 09/16/2017 1.34 09/15/2017 1.40 09/14/2017 1.64 CBC, Coags, BMP, Mg, Phos Recent Labs 09/16/17 0432 09/15/17 0428 09/14/17 2109 INR -- -- 1.0 APTT -- -- 23.6 NA 141 140 135* K 4.6 3.9 4.7 CHLOR 104 104 99 CO2 27 26 27 GLUC 88 92 104* CA 8.9 8.4* 8.9 Liver Function, Amylase, AND Lipase Assessment/Plan Patient with new onset dysarthria, left upper extremity weakness and posturing and possible left side neglect. 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 MRI brain did not show new stroke. EEG did not show epileptiform abnormality. At this time unclear exact etiology of symptoms. However, by history would treat as TIA. At this time, AED considered but without epileptiform abnormality on EEG and no definite clinical seizure activity, feel appropriate to hold on such treatment and continue to monitor. Plan as follows: ? -Plavix 75mg daily. -Lipitor 40mg daily. Goal LDL <70. -BP goal <140/90. -Glucose goal <140. -Continue tele to evaluate for cardiac source of stroke (evaluate for afib as cardio-embolic source). -Consult PT/OT/Speech therapy - d/c home once felt safe with therapists. -Patient wanting to return home today. Thus, recommend if he is to leave, that he have follow up with his PCP regarding abnormality on MRA (possible aneurysm). Given prior stroke workups there should be record of whether this abnormality was seen on imaging before. If not, unlikely aneurysm. If Cr stable, may consider CTA. SIGNATURE: Doc Byers MD PATIENT NAME: Servando Sheriff DATE: September 16, 2017 TIME: 4:33 PM PAGER: [phone] CASE MANAGEM Observed: 09/16/2017 Status: COMPLETED Source: [place] 4:26 PM CLINIC OTHER CAMPUS REPOSITORY HNO ID: [id number] Author: Keira Miramontes (Sw) Service: Case Management Author Type: [employer] Engineer Type: Care Mgt Progress Note Filed: 09/16/2017 4:27 PM Note Text: CARE MANAGEMENT PROGRESS NOTE SERVICE DATE: 09/16/2017 SERVICE TIME: 4:26 PM LOS: 0 days CM met with patient and patients to discuss discharge planning. PT recommended HHC. Patient is not interested in HHC. Patient states that if he changes his mind he knows who to call as he has had it in the past. CM to follow. SIGNATURE: REI Hanna PATIENT NAME: Servando Sheriff DATE: September 16, 2017 TIME: 4:26 PM PAGER/CONTACT #: [phone] THERAPY NT Observed: 09/16/2017 Status: COMPLETED Source: [place] 3:45 PM CLINIC OTHER CAMPUS REPOSITORY HNO ID: [id number] Author: Lavinia (Pt) Darcy Service: Physical Therapy Author Type: Physical Therapist Type: Therapy (PT/OT/Speech/Resp) Filed: 09/16/2017 4:01 PM Note Text: Physical Therapy Evaluation SERVICE DATE: 09/16/2017 SERVICE TIME: 1455 to 1520 ROOM: [place] [address] Recommended Discharge Disposition: Home PT (and spouse supervision/assist) Recommended Discharge Disposition Comments: to ensure safety with all mobility in home environment, progression of balance and strengthening Anticipated Discharge Needs: Physical Assist at Home;Supervision at Home Physical Assist at Home for: Cleaning;Laundry;Meals;Medication Management;Safety;Shopping;Transportation Supervision at Home due to: Decreased safety awareness;Impaired cognition Recommended Discharge Equipment: No equipment needs anticipated PT Recommendations to Nursing: Ambulate with device;To bathroom;In halls;Transfer to/from chair;OOB for Meals;With assist of 1 person;Other: See Comment (alarm for safety) Device: Cane (gait belt) PT 6 Clicks Score: 20 Precautions/Activity Restrictions: Bed/Chair Alarm;Diabetic;Fall Risk;Lines/Tubes/Drains;Other: See Comments (standard) ASSESSMENT : Patient presents with impaired balance, strength, activity tolerance, safety and independence with all functional mobility at this time however after further discussion with spouse on pt current impairments pt appears to be near functional baseline. Patient with use of cane requires no more than CGA/SBA throughout, demonstrates balance deficits and forgetfulness-especially in recall to utilize cane for safety with all mobility, spouse confirms falls to be result of pt shuffling LEs and not utilizing cane-recently retired so will be present throughout for 24 hour assist/supervision. Requires skilled PT during and post-acute stay for functional mobility training, education/reinforcement in use of cane for mobility and progression of exercises to improve strength,balance, safety and independence with all mobility tasks. Patient Disposition at Start of Session: Bed Alarm;Supine in Bed Patient Disposition at End of Session: OOB in Chair;Call Max in Reach;Chair Alarm (spouse in room) Tolerated Full Session (denies lightheadedness/dizziness/pain) Physical Therapy Problem List: Cognitive Deficit;Education Deficit;Safety Deficits;Decreased Activity Tolerance;Decreased Strength;Functional Mobility Impairment;Balance Impaired Patient /Caregiver Goals: Go Home (with spouse assist) Goals for Plan of Care: Able to perform HEP with: Supervision (B LEs x 15-20 reps with handout to (+) strength,balance) Transfer sit to/from stand with: Supervision (with LRAD to increase safety with OOB activity) Ambulate with: Supervision Distance: 150-200 feet Device: (LRAD) Ambulate up and down curb step with: Stand By Assistance Device: (LRAD to ensure safety in community) Goal: Improve static and dynamic standing balance with LRAD to require no more than supervision to increase safety with all standing activities and reduce fall risk Rehab Potential: Fair PLAN: Treatment Frequency (times per week): 3 Current admission Treatment Interventions: Education;Joint Mobility;Strengthening;Functional Mobility Training;Balance Training;Neuromuscular Re-education Plan of Care developed with: Patient (and spouse) TREATMENT INTERVENTIONS: Therapy Diagnosis: Reduced mobility-other;Muscle Weakness (generalized);Unsteadiness on feet Interventions Provided: Evaluation;Therapeutic Activity (16607);Gait Training (53111) $ Evaluation-Low (52819) Billed Units: 1 unit Therapeutic Activity (12384) Treatment Minutes: 5 0 units Skilled Intervention(s): Education: Pt educated in role of PT during acute stay and PT POC, importance of OOB activity to reduce risk of functional decline, including recommendation for up in chair throughout the day especially for all meals, rationale for discharge recommendation of home PT, use of call light 100% of the time for assist, parameters for safe home going, rationale for equipment recommendation of use of cane for safety with all mobility Gait Training (91709) Treatment Minutes: 12 1 unit Skilled Intervention(s): Instruction in sit to stand technique with proper hand placement and body positioning at edge of bed/chair, Instruction in stand to sit technique with LE's touching chair/bed and reaching back for surface, Instruction in correction of gait deviations, Instruction in use of equipment, cues for sequence and pattern and See below for additional cues and assist Reinforcement consistently throughout for use of cane (utilized properly when cued for use, otherwise however tendency to hold/carry cane), and increased step length/height B, with follow through of cues demonstrates improvement in steadiness and progresses to require SBA, however when reverts to shuffled steps and simultaneously non use of cane, requires CGA for safety Total Timed Code Treatment Minutes: 17 Total Treatment Time (minutes): 25 FUNCTIONAL G CODE: PT 6 Clicks Score: 20 (09/16/171454) $ Mobility: Walking and Moving Around Current Status (G8978): CJ (09/16/171454) $ Mobility: Walking and Moving Around Goal Status (G8979): CI (09/16/171454) Based on clinical assessment and the score on the 6 Clicks Functional Assessment Tool, the G code and corresponding severity modifiers are documented above. SUBJECTIVE: Current Hospital Course: Chart reviewed; Patient presents to ED with c/o acute onset of slurred speech and L UE dysfunction while eating dinner All imaging CT /MRI (-) acute infarct Reason for Physical Therapy Consult : post-acute placement Relevant Past Medical History: diabetes, GERD, heart disease, HTN, CVA, MT, TIA, CKD stage 3, dementia, sinus bradycardia Patient Report: Patient resting supine in bed at approach, no acute distress, states I feel like I'm back to normal, ok per RN for PT, states PCNA recently ambulated pt in hallway with cane x 1 assist, requesting PT eval to aide in discharge planning Home Environment Patient Lives With: Significant Other Assistance Available: 24 Hour (from spouse-just retired within the past couple weeks) Entry To Home: No Stairs Number Of Stairs To Bed/Bath: 0 Tub/Shower Type: walk in shower with grab bars Laundry: spouse completes Equipment Owned: Cane;Commode-Raised;Grab Bars-Shower;Hand Held Shower;Wheeled Walker Prior Functional Level: Required Assistance;History of Falls Assistance Required With: Ambulation;Cleaning;Laundry;Meals;Medication Management;Shopping;Transportation Prior 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 Level 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 (however at times forgets to use cane), indep with ADLs, spouse does all driving and completes IADLs including med management, pt assists with light household tasks as able, reports ~5 falls in the past 6 months, states cause of call to be due to not utilizing std cane OBJECTIVE: CURRENT FUNCTIONAL STATUS: Current Functional Mobility Assist Level Additional Information Rolling Supine to Sit Stand By Assistance (with HOB near flat, no use of bed rails) Sit to Supine (not tested; up in chair post-treatment) Scooting Stand By Assistance (/supervision forward/retro bed/chair) Sit to Stand Contact Guard Assistance (to SBA x 2 trials from bed) Verbal cues for use of cane, safe approach (second trial attempts to sit prematurely to chair-spouse reports to be baseline as well) Stand to Sit Contact Guard Assistance (to SBA x 2 trials to bed) See above Bed to Chair Toilet/Commode Gait Contact Guard Assistance (to SBA ) Gait Device: Cane (gait belt) Gait Distance (feet): 300 feet x 1, 20 feet x 2, 5 feet x 1 Stairs (not tested/not applicable) Curb Step Car Transfer General Gait Deviations: [place] decreased;Step length decreased;Flexed trunk posture;Shuffling Gait;Other: See comment (reciprocal gait, intermittent non use of cane) Cues as above-refer to interventions -Patient sitting up in bedside chair with chair alarm activated and monitoring, spouse in room post-treatment, call max and personal belongings in reach, RN notified of patient status, denies needs at this time. -Gait belt in place for safety with all functional mobility -Lines/Tubes/Drains: Intact and as follows: telemetry,heplock -Range of Motion: WFL B LEs AROM See OT evaluation for assessment of UE range of motion. -Strength: Grossly 4- to 4/5 B LEs-no asymmetries noted side to side See OT evaluation for assessment of UE strength. Balance: Static Sitting;Static Standing;Dynamic Standing Static Sitting Balance: Supervision (sitting up in chair and at EOB) Static Standing Balance: Contact Guard Assistance (to SBA with unilateral UE support on std cane) Dynamic Standing Balance: Contact Guard Assistance (to SBA with unilateral UE support on std cane) Physician signature certifies treatment plan of care established above for the period of 09/16/2017 through 09/30/2017. Please see discipline specific clinical documentation flowsheet for complete details for this therapy evaluation/treatment. SIGNATURE: Lavinia Taveras PT PATIENT NAME: Servando Sheriff DATE: September 16, 2017 TIME: 3:45 PM PAGER/CONTACT #: [id number] NURSING PROG Observed: 09/16/2017 Status: COMPLETED Source: [place] 4:42 AM CLINIC OTHER CAMPUS REPOSITORY HNO ID: [id number] Author: Monique (Rn) EMA Mendoza Service: (none) Author Type: Registered Nurse Type: Nursing Progress Note Filed: 09/16/2017 6:54 AM Note Text: Nursing Progress Note Patient Name: Servando Sheriff Patient Location: [id number] Daily Note: 1900- Pt resting comfortably in bed with call light in reach. SR on tele HR 61. Denies needs at this time. 2000- Neuro check and NIH performed, Refer to NPR. Assessment performed refer to NPR. Pt denies needs at this time. SB 59. Medication administered. 2200- Neuro check performed, no new findings. SB on tele HR 59. Denies needs at this time. Pt resting in bed with call light in reach. 0000- Neuro check performed, no new findings. SR on tele HR 61. Denies needs at this time. Pt resting in bed with call light in reach. 0200- Pt sleeping in bed with call light in reach. No visible s/s of distress at this time. SR on tele 63. 0300- Pt off tele. Pt sleeping in bed. When reaching for tele box pt woke up abruptly waving arms vigorously. RN attempted to reorient pt. Pt began pinching RNs hand and was VERY confused. RN turned on light and attempted to do a Neuro check but pt refused to answer LOC questions or strength of arms and legs. Pt denies needs at this time. Call light within reach. 0400- Neuro check performed, no new findings. SB on tele HR 59. Denies needs at this time. Pt resting in bed with call light in reach. 0600- Pt sleeping in bed with call light in reach. No visible s/s of distress at this time. SR on tele 62 0650- services program manager at bedside. This note was completed by: Monique Mendoza RN CBC Collected: 09/16/2017 Status: F Source: [place] 4:32 AM [facility] REPOSITORY TYPE CODE TESTS RESULT OUT OF REFERENCE UNITS RANGE LAB WBC 3.70-11.00 k/uL WBC 5.24 LAB RBC 4.20-6.00 m/uL Low RBC 3.96 LAB HGB 13.0-17.0 g/dL Low Hemoglobin 11.2 LAB HCT 39.0-51.0 % Low Hematocrit 36.2 LAB MCV 80.0-100.0 fL MCV 91.4 LAB MCH 26.0-34.0 pG MCH 28.3 LAB MCHC 30.5-36.0 g/dL MCHC 30.9 LAB RDWCV 11.5-15.0 % RDW-CV 13.2 LAB PLTCT 150-400 k/uL Platelet Count 169 LAB MPV 9.0-12.7 fL MPV 11.0 Performed By: #### CBC, BMP #### [facility] [address] [place] [address] BASIC METABOLIC PANL Collected: 09/16/2017 Status: F Source: [place] 4:32 AM [facility] REPOSITORY TYPE CODE TESTS RESULT OUT OF REFERENCE UNITS RANGE LAB GLU 74-99 mg/dL Glucose 88 Result Comment: The [place] [employer] (ADA) provides guidance for cutoff values for fasting glucose and random glucose. The ADA defines fasting as no caloric intake for at least 8 hours. Fas ting plasma glucose results between 100 to 125 mg/dL indicate increased risk for diabetes (prediabetes). Fasting plasma glucose results greater than or equal to 126 mg/dL meet the criteria for diagnosis of diabetes. In the absence of unequivocal hyperglycemia, results should be confirmed by repeat testing. In a patient with classic symptoms of hyperglycemia or hyperglycemic crisis, random plasma glucose results greater than or equal to 200 mg/dL meet the criteria for diagnosis of diabetes. Reference: Standards of Medical Care in Diabetes 2016, [place] [employer]. Diabetes Care. 2016.39(Suppl 1). LAB BUN 9-24 mg/dL BUN 14 LAB CRET 0.73-1.22 mg/dL Creatinine High 1.34 LAB NA 136-144 mmol/L Sodium 141 LAB K 3.7-5.1 mmol/L Potassium 4.6 LAB CL 97-105 mmol/L Chloride 104 LAB CO2 22-30 mmol/L CO2 27 LAB AGAP 9-18 mmol/L Anion Gap 10 LAB CA 8.5-10.2 mg/dL Calcium, Total 8.9 LAB GFRAA eGFR- Amer. >60 LAB GFRNAA . eGFR-All Other Races 52 Result Comment: eGFR (Estimated GFR) Units of measure: mL/min/1.73 meters squared eGFR is derived from the reexpressed MDRD Study equation using the following parameters: serum creatinine, age, gender and race. The creatinine assay has been calibrated to be traceable to IDMS. An eGFR <60 mL/min/1.73m2 for >3 months is consistent with chronic kidney disease. Refer to KDOQI guidelines for clinical interpretation. In patients with unstable renal function, e.g. those with acute kidney injury, the eGFR may not accurately reflect actual GFR. Performed By: #### CBC, BMP #### [facility] [address] [facility] [phone] MRA CAROTID WO IVCON Observed: 09/15/2017 Status: F Source: [place] 3:54 PM CLINIC OTHER CAMPUS REPOSITORY * * *Final Report* * * DATE OF EXAM: Sep 15 2017 3:54PM [facility] 0275 - MRA CAROTID WO IVCON / PROCEDURE REASON: TIA, initial exam * * * * Physician Interpretation * * * * EXAMINATION: MRI BRAIN WO IVCON, MRA BRAIN WO IVCON, MRA CAROTID WO IVCON CLINICAL HISTORY: TIA, initial exam TECHNIQUE: Routine noncontrast MRI protocol including diffusion images. 3-D voxy-[id number]-dhhgwg images were obtained the intracranial and extra cranial circulation and maximum intensity projections were created in multiple planes MQ: MRBWO_2 COMPARISON: None. RESULT: Acute Change: There is no evidence of restricted diffusion to suggest an acute infarct. Hemorrhage: No evidence of prior parenchymal hemorrhage on the gradient echo images. Mass Lesion/ Mass Effect: No evidence of an intracranial mass or extra-axial fluid collection. No significant mass effect. Chronic Change: Scattered patchy and confluent areas of increased T2 and FLAIR signal are present in the supratentorial white matter which is nonspecific but likely represents chronic microvascular ischemia. Parenchyma: There is moderate generalized parenchymal volume loss. The brain parenchyma is otherwise within normal limits of signal intensity and morphology. Ventricles: The lateral and third ventricles are enlarged but this likely relates to central volume loss. Skull Base: Hypothalamic and pituitary region are grossly normal. Craniocervical junction is normal. No significant marrow replacement process. Vasculature: Major intracranial arterial structures, and dural venous sinuses show typical flow void, suggesting patency by spin echo criteria. Other: The visualized paranasal sinuses and mastoid air cells are clear. The orbits and extracranial soft tissues are unremarkable. MRA head Posterior circulation: V4 segments of the vertebral arteries, basilar artery, and technical engineer are normal in caliber without evidence for aneurysm. Anterior circulation: There is focal prominence of MRA flow signal at the level of the left MCA bifurcation measuring approximately 2 mm in size. Intracranial segments of the bilateral ICAs, proximal right MCA and ACAs appear normal in caliber without evidence for aneurysm. MRA neck Carotid Stenosis: Right Common: No significant stenosis. Right Internal Plaque: No significant plaque formation. Right Internal Carotid Stenosis (% by NASCET Criteria): 0 Left Common: No significant stenosis. Left Internal Carotid Plaque: No significant plaque formation. Left Internal Carotid Stenosis (% by NASCET Criteria): 0 Cervical Vertebral Arteries: Patency: Bilateral Dominance: Right IMPRESSION: No evidence for acute infarct identified. There is moderate hyperintensity on T2-weighted and FLAIR images involving the supratentorial white matter which is nonspecific however likely represents chronic microvascular ischemia. Focal prominence of MRA flow signal at the level of the left MCA bifurcation may represent tortuous vascularity, however aneurysm at this level cannot be entirely excluded and further evaluation with CTA of the head could be obtained if clinically warranted. No hemodynamically significant stenosis is noted at the carotid bifurcations. Railway Yard Assistant: PSCB Transcribe Date/Time: Sep 15 2017 4:02P Dictated by : USMAN GODFREY MD This examination was interpreted and the report reviewed and electronically signed by: USMAN GODFREY MD on Sep 15 2017 4:09PM EST [id number] MRA BRAIN WO IVCON Observed: 09/15/2017 Status: F Source: [place] 3:54 PM CLINIC OTHER CAMPUS REPOSITORY * * *Final Report* * * DATE OF EXAM: Sep 15 2017 3:54PM [facility] 0272 - MRA BRAIN WO IVCON / PROCEDURE REASON: TIA, initial exam * * * * Physician Interpretation * * * * EXAMINATION: MRI BRAIN WO IVCON, MRA BRAIN WO IVCON, MRA CAROTID WO IVCON CLINICAL HISTORY: TIA, initial exam TECHNIQUE: Routine noncontrast MRI protocol including diffusion images. 3-D bdbn-dz-umdsri images were obtained the intracranial and extra cranial circulation and maximum intensity projections were created in multiple planes MQ: MRBWO_2 COMPARISON: None. RESULT: Acute Change: There is no evidence of restricted diffusion to suggest an acute infarct. Hemorrhage: No evidence of prior parenchymal hemorrhage on the gradient echo images. Mass Lesion/ Mass Effect: No evidence of an intracranial mass or extra-axial fluid collection. No significant mass effect. Chronic Change: Scattered patchy and confluent areas of increased T2 and FLAIR signal are present in the supratentorial white matter which is nonspecific but likely represents chronic microvascular ischemia. Parenchyma: There is moderate generalized parenchymal volume loss. The brain parenchyma is otherwise within normal limits of signal intensity and morphology. Ventricles: The lateral and third ventricles are enlarged but this likely relates to central volume loss. Skull Base: Hypothalamic and pituitary region are grossly normal. Craniocervical junction is normal. No significant marrow replacement process. Vasculature: Major intracranial arterial structures, and dural venous sinuses show typical flow void, suggesting patency by spin echo criteria. Other: The visualized paranasal sinuses and mastoid air cells are clear. The orbits and extracranial soft tissues are unremarkable. MRA head Posterior circulation: V4 segments of the vertebral arteries, basilar artery, and technical engineer are normal in caliber without evidence for aneurysm. Anterior circulation: There is focal prominence of MRA flow signal at the level of the left MCA bifurcation measuring approximately 2 mm in size. Intracranial segments of the bilateral ICAs, proximal right MCA and ACAs appear normal in caliber without evidence for aneurysm. MRA neck Carotid Stenosis: Right Common: No significant stenosis. Right Internal Plaque: No significant plaque formation. Right Internal Carotid Stenosis (% by NASCET Criteria): 0 Left Common: No significant stenosis. Left Internal Carotid Plaque: No significant plaque formation. Left Internal Carotid Stenosis (% by NASCET Criteria): 0 Cervical Vertebral Arteries: Patency: Bilateral Dominance: Right IMPRESSION: No evidence for acute infarct identified. There is moderate hyperintensity on T2-weighted and FLAIR images involving the supratentorial white matter which is nonspecific however likely represents chronic microvascular ischemia. Focal prominence of MRA flow signal at the level of the left MCA bifurcation may represent tortuous vascularity, however aneurysm at this level cannot be entirely excluded and further evaluation with CTA of the head could be obtained if clinically warranted. No hemodynamically significant stenosis is noted at the carotid bifurcations. Railway Yard Assistant: ORLIN Transcribe Date/Time: Sep 15 2017 4:02P Dictated by : USMAN GODFREY MD This examination was interpreted and the report reviewed and electronically signed by: USMAN GODFREY MD on Sep 15 2017 4:09PM EST [id number] MRI BRAIN WO IVCON Observed: 09/15/2017 Status: F Source: [place] 3:54 PM CLINIC OTHER CAMPUS REPOSITORY * * *Final Report* * * DATE OF EXAM: Sep 15 2017 3:54PM [facility] 0294 - MRI BRAIN WO IVCON / PROCEDURE REASON: TIA, initial exam * * * * Physician Interpretation * * * * EXAMINATION: MRI BRAIN WO IVCON, MRA BRAIN WO IVCON, MRA CAROTID WO IVCON CLINICAL HISTORY: TIA, initial exam TECHNIQUE: Routine noncontrast MRI protocol including diffusion images. 3-D cskt-yu-sjlcho images were obtained the intracranial and extra cranial circulation and maximum intensity projections were created in multiple planes MQ: MRBWO_2 COMPARISON: None. RESULT: Acute Change: There is no evidence of restricted diffusion to suggest an acute infarct. Hemorrhage: No evidence of prior parenchymal hemorrhage on the gradient echo images. Mass Lesion/ Mass Effect: No evidence of an intracranial mass or extra-axial fluid collection. No significant mass effect. Chronic Change: Scattered patchy and confluent areas of increased T2 and FLAIR signal are present in the supratentorial white matter which is nonspecific but likely represents chronic microvascular ischemia. Parenchyma: There is moderate generalized parenchymal volume loss. The brain parenchyma is otherwise within normal limits of signal intensity and morphology. Ventricles: The lateral and third ventricles are enlarged but this likely relates to central volume loss. Skull Base: Hypothalamic and pituitary region are grossly normal. Craniocervical junction is normal. No significant marrow replacement process. Vasculature: Major intracranial arterial structures, and dural venous sinuses show typical flow void, suggesting patency by spin echo criteria. Other: The visualized paranasal sinuses and mastoid air cells are clear. The orbits and extracranial soft tissues are unremarkable. MRA head Posterior circulation: V4 segments of the vertebral arteries, basilar artery, and technical engineer are normal in caliber without evidence for aneurysm. Anterior circulation: There is focal prominence of MRA flow signal at the level of the left MCA bifurcation measuring approximately 2 mm in size. Intracranial segments of the bilateral ICAs, proximal right MCA and ACAs appear normal in caliber without evidence for aneurysm. MRA neck Carotid Stenosis: Right Common: No significant stenosis. Right Internal Plaque: No significant plaque formation. Right Internal Carotid Stenosis (% by NASCET Criteria): 0 Left Common: No significant stenosis. Left Internal Carotid Plaque: No significant plaque formation. Left Internal Carotid Stenosis (% by NASCET Criteria): 0 Cervical Vertebral Arteries: Patency: Bilateral Dominance: Right IMPRESSION: No evidence for acute infarct identified. There is moderate hyperintensity on T2-weighted and FLAIR images involving the supratentorial white matter which is nonspecific however likely represents chronic microvascular ischemia. Focal prominence of MRA flow signal at the level of the left MCA bifurcation may represent tortuous vascularity, however aneurysm at this level cannot be entirely excluded and further evaluation with CTA of the head could be obtained if clinically warranted. No hemodynamically significant stenosis is noted at the carotid bifurcations. Railway Yard Assistant: ORLIN Transcribe Date/Time: Sep 15 2017 4:02P Dictated by : USMAN GODFREY MD This examination was interpreted and the report reviewed and electronically signed by: USMAN GODFREY MD on Sep 15 2017 4:09PM EST [id number] CONSULT Observed: 09/15/2017 Status: COMPLETED Source: [place] 1:37 PM [facility] OTHER CAMPUS REPOSITORY HNO ID: [id number] Author: Doc Byers Jr. Service: Neurology Author Type: Physician Type: Consults Filed: 09/15/2017 1:52 PM Note Text: CONSULT: NEUROLOGY SERVICE SERVICE DATE: 09/15/2017 SERVICE TIME: 1:37 PM REASON FOR CONSULT: TIA/Stroke REQUESTING PHYSICIAN: Dr. Richar Combs PRIMARY CARE PHYSICIAN: Kasey Aguiar MD Subjective Mr. Sheriff is a pleasant 77 year old right handed male with past medical history significant for stroke (resulting in chronic language and cognitive deficits), HTN, HLD, CAD, DM. Of note patient previously on Plavix but currently on ASA for unknown reasons (family confirms no bleeding or adverse reaction). He now presents to [facility] after acute onset of slurred speech and left upper extremity dysfunction while eating dinner. Patient reports that he was just on vacation at [place] and arrived at the airport on the day of admit. His grandson picked him up and on their way back to [place], they stopped in [place] to eat. While ordering, patient began to slur speech, neglect his left side and had a flexed type posturing of the LUE at level of elbow, wrist and fingers. states when she would make any comments about his left side, the patient would respond by using the right side. Symptoms lasted for perhaps 20 minute and resolved by time patient was in the ER (transferred by EMS). He did have a headache, but these are chronic and on and off over recent months. He currently feels back to baseline. In ER CT brain was completed and I reviewed the images with no definite evidence of an acute intracranial process. Per radiology report: Advanced chronic microvascular ischemic change, involving the cerebral white matter and numerous small remote lacunar infarcts. ?No clear evidence for focal acute ischemia or acute intracranial hemorrhage. ? In ER, BP elevated at 178/76 with HR 62. ECG per report: Diagnosis:SINUS BRADYCARDIA OTHERWISE NORMAL ECG CMP significant for JAVIER with Cr of 1.64. Trop negative. CBC unremarkable. UA unremarkable. (See labs below). Carotid dopplers performed today showed the following per report: 1. ?Bilateral plaque 2. ?30-49% stenosis involving the right internal carotid artery by NASCET criteria. 3. ?Less than 30% stenosis involving the left internal carotid artery by NASCET criteria. FUNCTIONAL STATUS: Partially dependent PAST MEDICAL HISTORY Diagnosis Date - Diabetes (HCC) - GERD (gastroesophageal reflux disease) - Heart disease - HTN (hypertension) - Hypokalemia - Kidney stones - MT (myocardial infarction) (HCC) - Stroke (HCC) PAST SURGICAL HISTORY Procedure Laterality Date - COLONOSCOP W/ OR W/O BRSH SPEC 08/14/15 normal - 10 year follow up - HEART SURGERY HX - LAPT RPR PARAESOPH HIATAL HERNIA W/ MESH - PART REMOVAL COLON W ANASTOMOSIS 09/15/13 sigmoid resection and lysis of adhesions for volvulus - PAST SURGICAL HISTORY OF triple bypass with 6 stents - PAST SURGICAL HISTORY OF stents x 2 FAMILY HISTORY Problem Relation Age of Onset - Cancer Paternal Aunt colon cancer Social History Substance Use Topics - Smoking status: Former Smoker - Smokeless tobacco: Never Used - Alcohol use No Prescriptions Prior to Admission: donepezil (ARICEPT) 10 mg tablet Take 10 mg by mouth once daily. Disp: Rfl: 09/14/2017 at 0900 ZETIA 10 mg tablet Take by mouth once daily. Disp: Rfl: 09/14/2017 at 0900 pioglitazone (ACTOS) 30 mg tablet Take by mouth once daily. Disp: Rfl: 09/14/2017 at 0900 ramipril (ALTACE) 5 mg capsule Take by mouth once daily. Disp: Rfl: 09/14/2017 at 0900 escitalopram oxalate (LEXAPRO) 10 mg tablet Take by mouth once daily. Disp: Rfl: 09/14/2017 at 0900 metoprolol succinate XL, long acting, (TOPROL XL) 25 mg 24 hr tablet Take 1 tablet by mouth once daily. Disp: Rfl: 0 09/14/2017 at 0900 aspirin 81 mg chewable tablet Take 1 tablet by mouth once daily. Disp: Rfl: 0 09/14/2017 at 0900 Current hospital medications: acetaminophen 650 mg tab(s) (TYLENOL) 650 mg ORAL q 6 H PRN donepezil 10 mg tab(s) (ARICEPT) 10 mg ORAL DAILY escitalopram oxalate 10 mg tab(s) (LEXAPRO) 10 mg ORAL DAILY nitroglycerin sublingual 0.4 mg tab(s) (NITROQUICK) 0.4 mg SUBLINGUAL q 5 MIN PRN pioglitazone 30 mg tab(s) (ACTOS) 30 mg ORAL DAILY ramipril 5 mg cap(s) (ALTACE) 5 mg ORAL DAILY ezetimibe 10 mg tab(s) (ZETIA) 10 mg ORAL DAILY aspirin 81 mg chewable tab(s) 81 mg ORAL DAILY metoprolol succinate ER 12.5 mg tab(s) (TOPROL XL) 12.5 mg ORAL DAILY Allergies As of Date: 09/14/2017 Allergen Noted Reaction IODINE 09/30/2013 Hives PENICILLIN 07/19/2015 Rash Fully Assessed 09/14/2017 COMPLETE REVIEW OF SYSTEMS: GENERAL: No weight loss, malaise or fevers HEENT: Negative for frequent or significant headaches, No changes in hearing or vision, no nose bleeds or other nasal problems NECK: Negative for lumps, goiter, pain and significant neck swelling RESPIRATORY: Negative for cough, hemoptysis, wheezing, COPD, dyspnea or shortness of breath CARDIOVASCULAR: Negative for chest pain, leg swelling, hypertension, CHF or palpitations GI: No nausea, vomiting, or diarrhea : No history of dysuria, frequency or incontinence MUSCULOSKELETAL: Negative for joint pain or swelling, back pain or muscle pain SKIN: Negative for lesions, rash, and itching HEMATOLOGY/LYMPHOLOGY: Negative for prolonged bleeding, bruising easily or swollen nodes ENDOCRINE: Negative for cold or heat intolerance, polyuria, polydipsia and goiter NEURO: See HPI. Objective PHYSICAL EXAM: GENERAL EXAM: General appearance: NAD, pleasant. HEENT: NC/AT, nasal congestion absent, no oral lesions, membranes moist. NECK: No masses, supple. Lungs: CTA bilaterally. No wheezes present. CV: Amaury, S1S2 no murmurs. Abd: Soft, nontender, nondistended. Bowel sounds present. Extr: No cyanosis, clubbing or edema. No evidence of fasciculations. Distal extremity pulses 1+. Capillary refill <2 sec. No calf tenderness. Skin: Cool to touch. No rash. NEUROLOGICAL EXAM: General: Awake, alert, oriented x3 (person,place,time), language fluent, no dysarthria; comprehension, naming, repetition intact. Slow to answer questions - baseline since prior stroke) CN: PERRL, fundi with no evidence of papilledema, EOMI and without nystagmus, VFF to confrontation, facial sensation and strength are normal and symmetric, hearing is intact to finger rub bilaterally, palate and tongue movements are intact and symmetric. SCM and trapezius strength normal. Motor: Normal tone, bulk and strength (5/5) bilaterally (throughout extremities x4). Reflexes: 1/4 and symmetric, plantar stimulation is extensor bilateral. Coordination: FNF, MARIPOSA, HTS intact. No tremors. Sensation: Light touch, pin, vibration intact throughout. No evidence of neglect. Gait: Appears to be stable. Romberg nml. Patient Vitals for the past 24 hrs: BP Temp Temp src Pulse Resp SpO2 Height Weight 09/15/17 1200 158/65 36.8 ?C (98.2 ?F) Oral (!) 55 18 99 % - - 09/15/17 1000 138/50 36.9 ?C (98.4 ?F) Oral (!) 56 18 99 % - - 09/15/17 0800 153/62 36.7 ?C (98 ?F) Oral (!) 51 18 99 % - - 09/15/17 0600 130/53 36.3 ?C (97.4 ?F) Oral (!) 46 18 97 % - - 09/15/17 0400 127/55 36.4 ?C (97.5 ?F) Oral (!) 54 18 97 % - 87.9 kg (193 lb 12.6 oz) 09/15/17 0200 138/56 36.4 ?C (97.5 ?F) Oral (!) 57 18 99 % - - 09/15/17 0000 138/63 36.3 ?C (97.3 ?F) Oral (!) 57 18 98 % - - 09/14/17 2300 - - - - - - 175.3 cm (5' 9) - 09/14/17 2256 129/56 - - 63 18 98 % - - 09/14/17 2145 145/71 - - 57 18 100 % - - 09/14/17 2105 178/76 36.9 ?C (98.5 ?F) Oral 62 20 (!) 94 % - 87 kg (191 lb 12.8 oz) Body mass index is 28.62 kg/m?. DATA: Diagnostic tests reviewed for today's visit: Most recent labs and imaging results. WBC (k/uL) Date Value 09/15/2017 4.80 09/14/2017 5.52 RBC (m/uL) Date Value 09/15/2017 3.78 09/14/2017 4.02 Platelet Count (k/uL) Date Value 09/15/2017 182 09/14/2017 196 BUN (mg/dL) Date Value 09/15/2017 18 09/14/2017 19 Creatinine (mg/dL) Date Value 09/15/2017 1.40 09/14/2017 1.64 CBC, Coags, BMP, Mg, Phos Recent Labs 09/15/17 0428 09/14/17 2109 INR -- 1.0 APTT -- 23.6 NA 140 135* K 3.9 4.7 CHLOR 104 99 CO2 26 27 GLUC 92 104* CA 8.4* 8.9 Liver Function, Amylase, AND Lipase Cholesterol, Total Date Value Ref Range Status 09/15/2017 153 <200 mg/dL Final Comment: <200 mg/dL, Desirable 200-239 mg/dL, Borderline high >239 mg/dL, High HDL Cholesterol Date Value Ref Range Status 09/15/2017 34 (L) >39 mg/dL Final Comment: 40-59 mg/dL, Acceptable >59 mg/dL, High: Negative risk factor for coronary heart disease <40 mg/dL, Low: Positive risk factor for coronary heart disease LDL Cholesterol Date Value Ref Range Status 09/15/2017 99 <100 mg/dL Final Comment: <100 mg/dL, Optimal 100-129 mg/dL, Near optimal/above optimal 130-159 mg/dL, Borderline high 160-189 mg/dL, High >189 mg/dL, Very high Secondary prevention optimal LDL Cholesterol levels are recommended to be < 70 mg/dL Triglyceride Date Value Ref Range Status 09/15/2017 99 <150 mg/dL Final Comment: <150 mg/dL, Normal 150-199 mg/dL, Borderline high 200-499 mg/dL, High >499 mg/dL, Very high Impression/Recommendations Patient with new onset dysarthria, left upper extremity weakness and posturing and possible left side neglect. Etiology uncertain but ddx would include the followin) small stroke involving right frontal and parietal lobes; 2) TIA; 3) seizure secondary to prior stroke (pt's adds he was a bit unresponsive but no definite loc). Ddx d/w patient and his including workup and treatment. Plan is as follows: -Change antiplt therapy to Plavix 75mg daily (tolerated in the past). If MRA shows intracranial stenosis, may consider dual antiplt therapy. -Initiate Lipitor 40mg daily. Goal LDL <70. -BP goal <160/100 today and then tomorrow <140/90. -Glucose goal <140. -MRA head and neck to evaluate for large vessel disease. -MRI brain to evaluate for stroke (type, location, size -- may be indicative if safe for anticoagulation therapy if needed). -ECHO to evaluate for cardio-embolic source of stroke. -Tele to evaluate for cardiac source of stroke (evaluate for afib as cardio-embolic source). -Consult PT/OT/Speech therapy. -EEG to evaluate for epileptiform abnormality. Would not start AED unless EEG abnormal. Will continue to follow. SIGNATURE: Doc Byers MD PATIENT NAME: Servando Sheriff DATE: September 15, 2017 TIME: 1:37 PM PAGER: [phone] URINALYSIS Collected: 09/15/2017 Status: F Source: [facility] 11:30 AM CLINIC OTHER [place] REPOSITORY TYPE CODE TESTS RESULT OUT OF RANGE REFERENCE UNITS LAB UCOL Yellow Color Yellow LAB [facility] Clear Clarity Clear LAB UGLUC Negative mg/dL Glucose, Urine Negative LAB UBIL Negative Bilirubin, Urine Negative LAB UKET Negative Ketones, Urine Negative LAB USPG 1.001-1.029 Specific [place], Ur 1.015 LAB UHGB Negative Abnormal Hemoglobin/Blood, Small Alert Ur LAB UPH 5.0-8.0 pH 7.0 LAB UPROT Negative mg/dL Protein, Abnormal Urine Trace Alert LAB UUROB 0.2-1.0 Urobilinogen 1.0 LAB UNITR Negative Nitrites Negative LAB ULKEST Negative Leukest Abnormal Trace Alert Performed By: #### UA, UAMIC #### [facility] [address] [place] [address] URINE MICROSCOPIC Collected: 09/15/2017 Status: F Source: [facility] (FOR LAB USE ONLY) 11:30 AM [facility] OTHER [place] REPOSITORY TYPE CODE TESTS RESULT OUT OF REFERENCE UNITS RANGE LAB UWBC 0-5 /HPF WBC 0-5 LAB URBC 0-3 /HPF RBC 0-3 LAB UCAST 0 /LPF Cast SEE COMMENT Result Comment: 0 Performed By: #### UA, UAMIC #### [facility] [address] [place] [address] Observed: 09/15/2017 Status: F Source: [facility] URINE CULTURE 11:30 AM [facility] REPOSITORY Culture Result - No growth (<1,000 CFU/ml) Performed By: #### URCUL #### [facility] [address] [place], [place] [address] NURSING PROG Observed: 09/15/2017 Status: COMPLETED Source: [facility] 11:07 AM [facility] OTHER CAMPUS REPOSITORY HNO ID: [id number] Author: Shweta (Rn) EMA Dillon Service: (none) Author Type: Registered Nurse Type: Nursing Progress Note Filed: 09/15/2017 2:13 PM Note Text: Nursing Progress Note Patient Name: Servando Sheriff Patient Location: [id number] 07- bedside report, assessment complete. Tele sinus amaury. Pt aware of tests scheduled for today 08- neuros, NIH done see flowsheet. Still some mild slurred speech. 10- pt to ultrasound 1200- Tele SB, at bedside 1400- pt to echo and MRI This note was completed by: Shweta Dillon RN US CAROTID SOHEILA Observed: 09/15/2017 Status: F Source: [facility] 11:00 AM [facility] REPOSITORY * * *Final Report* * * DATE OF EXAM: Sep 15 2017 11:00AM DOM 1077 - US CAROTID SOHEILA / PROCEDURE REASON: TIA, initial exam * * * * Physician Interpretation * * * * CLINICAL INDICATION: TIA, initial exam COMPARISON: None TECHNIQUE: Real-time imaging of the neck vasculature was performed using ultrasound. RIGHT CAROTID RESULTS: Intimal hyperplasia and mild plaque in the distal common carotid artery. Mild focal plaque in the carotid bulb and proximal ICA. The maximum peak systolic velocity measurements are as follows: Mid common carotid artery 99 cm per second. Internal carotid artery 126 cm per second. External carotid artery 130 cm per second. Peak internal/mid common systolic ratio 1.27. The right vertebral artery has antegrade flow. LEFT CAROTID RESULTS: Intimal hyperplasia and mild plaque in the distal common carotid artery. Mild calcified plaque in the carotid bulb and proximal ICA and ECA The maximum peak systolic velocity measurements are as follows: Mid common carotid artery 84 cm per second. Internal carotid artery 103 cm per second. External carotid artery 182 cm per second. Peak internal/mid common systolic ratio 1.23 . The left vertebral artery has antegrade flow. IMPRESSION: 1. Bilateral plaque 2. 30-49% stenosis involving the right internal carotid artery by NASCET criteria. 3. Less than 30% stenosis involving the left internal carotid artery by NASCET criteria. Railway Yard Assistant: ORLIN Transcribe Date/Time: Sep 15 2017 11:06A Dictated by : EDNA RAMSEY MD This examination was interpreted and the report reviewed and electronically signed by: EDNA RAMSEY MD on Sep 15 2017 11:10AM EST [id number] CASE MGT INIT Observed: 09/15/2017 Status: COMPLETED Source: [facility] 10:18 AM CLINIC OTHER CAMPUS REPOSITORY HNO ID: [id number] Author: Keira Miramontes (Sw) Service: Case Management Author Type: [employer] Power Plant Engineer Type: Care Mgt Initial Assessment Filed: 09/15/2017 10:24 AM Note Text: CARE MANAGEMENT: ASSESSMENT AND DISCHARGE PLAN SERVICE DATE: 09/15/2017 SERVICE TIME: 10:21 AM PRIMARY CARE PHYSICIAN: Kasey Aguiar MD - confirmed with patient. Patient preferences anyday, anytime. 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 No Advance Directive: Health Literacy: 1. How often do you need to have someone help you when you read instructions, pamphlets, or other written material from your doctor or pharmacy? Never - 1 2. How confident are you filling out medical forms by yourself? Extremely - 1 If Patient scores > 3 on either question, the following interventions were put into place: Patient did not score > 3 FUNCTIONAL AND COGNITIVE/BEHAVIORAL PRIOR TO ADMISSION: Baseline Mental Status: Alert AND Oriented, Person, Place , Time and Situation Functional Status: Independent Does Patient Currently Receive Any Community Services or Home Care? None Equipment Prior to Admission: Cane - Straight Walker Has the Patient Been in a Snf Facility in the Past 30 days? N/A SOCIAL: Living Arrangement: Home Lives With: Spouse Financial Resources: Retired Primary Contact: Extended Emergency Contact Information Primary Emergency Contact: Beryl Sheriff Address: [address] [place] [address] [place] [address] Mobile Relation: Spouse Supportive: Yes Other Important Patient Contacts: None Caregiver Assessment: Caregiver is ready, willing and able to meet the patient's needs as recommended by the inter-professional team? No Caregiver Needed Patient's transition needs and plan for meeting these needs: patient meets his own needs Does the patient have an acute stroke diagnosis, or has the patient had a stroke during this admission? No Medication Adherence: I am convinced of the importance of my prescription medication: Agree completely - 0 I worry that my prescription medication will do more harm than good to me Disagree completely - 0 I feel financially burdened by my [id number] expenses for my prescription medication: Disagree completely - 0 Patient is categorized as low risk < 2 Are you interested in bedside delivery of your medications? No Food Concerns: In the Last Month, Have You had Trouble Getting Food? No trouble getting food During the Last Month, Have You Worried Whether Your Food Would Run Out Before You Had Enough Money to Buy More? No Is the Patient Psychosocially Complex? No ASSESSMENT AND PLAN: Medical Needs: 2 or more chronic diseases Psychosocial Needs: None FREEDOM OF CHOICE EXPLAINED: N/A POTENTIAL TRANSITION PLANS Home Home Fpc OT/PT To Be Determined SIGNATURE: REI Hanna PATIENT NAME: Servando Sheriff DATE: September 15, 2017 TIME: 10:21 AM PAGER/CONTACT #: [phone] HISTORY PHYSICAL Observed: 09/15/2017 Status: COMPLETED Source: [facility] 8:24 AM CLINIC OTHER CAMPUS REPOSITORY O ID: [id number] Author: Richar Combs Service: General Internal Medicine Author Type: Physician Type: HANDP Filed: 09/15/2017 2:32 PM Note Text: HISTORY AND PHYSICAL EXAMINATION SERVICE DATE: 09/15/2017 SERVICE TIME: 1:13 PM PRIMARY CARE PHYSICIAN: Kasey Aguiar MD ASSESSMENT AND PLAN 1. Altered mental status, probable TIA, h/o lacunar strokes - Observation, telemetry, Neurology consult, MRI/MRA brain, Echo carotid doppler. 2. Sinus bradycardia - Metoprolol dose reduced. 3. CAD - h/o CABG and coronary stent 4. Abnormal TFT - mildly elevated TSH. Consider Levothyroxine. 5. Elevated serum creatinine - Probably CKD, unknown stage. 6. DM2 - HgbA1C of 5.9, on Actos 7. Dementia - on Donepezil 8. Obesity Observation. SUBJECTIVE CHIEF COMPLAINT: Altered mental status with transient left- sided facial droop and left arm weakness HPI: This is a 77 year old male who lives at home with his and has a PMH of CAD- s/pCABG and coronary stent, lacunar stroke, dementia, type 2 diabetes, hypertension and obesity. Information was obtained from the patient, from his at bedside and also from ER staff and available records. Patient and his note that he had been at baseline health status until last evening and they were returning from [place]. They stopped at a restaurant for dinner and while sitting on the seat the patient suddenly developed left-sided weakness with drooling from the left side and leaning towards left. His notes that the patient remained awake and after EMS put him on a gurney seemed back to normal. He was brought to the ER here at [facility]. Evaluation in the ER was significant for mildly elevated blood pressure. CT scan of head reported no acute findings but there were previous lacunar infarcts noted. Labs as noted below. EKG showed sinus bradycardia with ventricular rate of 55 bpm. Patient was given an aspirin and placed on observation on a telemetry monitored bed. patient has been noted to have significant sinus bradycardia with heart rate in the 40s on telemetry and baseline metoprolol dose reduce this morning. He denies any recurrence of the transient left-sided weakness. His is at bedside and raises no other new complaints or concerns. PAST MEDICAL HISTORY: PAST MEDICAL HISTORY Diagnosis Date - Diabetes (HCC) - GERD (gastroesophageal reflux disease) - Heart disease - HTN (hypertension) - Hypokalemia - Kidney stones - MT (myocardial infarction) (HCC) - Stroke (HCC) PAST SURGICAL HISTORY: PAST SURGICAL HISTORY Procedure Laterality Date - COLONOSCOP W/ OR W/O BRSH SPEC 08/14/15 normal - 10 year follow up - HEART SURGERY HX - LAPT RPR PARAESOPH HIATAL HERNIA W/ MESH - PART REMOVAL COLON W ANASTOMOSIS 09/15/13 sigmoid resection and lysis of adhesions for volvulus - PAST SURGICAL HISTORY OF triple bypass with 6 stents - PAST SURGICAL HISTORY OF stents x 2 FAMILY HISTORY: FAMILY HISTORY Problem Relation Age of Onset - Cancer Paternal Aunt colon cancer SOCIAL HISTORY: Social History Substance Use Topics - Smoking status: Former Smoker - Smokeless tobacco: Never Used - Alcohol use No MEDICATIONS: Prior to Admission Medications Prescriptions Prior to Admission: donepezil (ARICEPT) 10 mg tablet Take 10 mg by mouth once daily. Disp: Rfl: 09/14/2017 at 0900 ZETIA 10 mg tablet Take by mouth once daily. Disp: Rfl: 09/14/2017 at 0900 pioglitazone (ACTOS) 30 mg tablet Take by mouth once daily. Disp: Rfl: 09/14/2017 at 0900 ramipril (ALTACE) 5 mg capsule Take by mouth once daily. Disp: Rfl: 09/14/2017 at 0900 escitalopram oxalate (LEXAPRO) 10 mg tablet Take by mouth once daily. Disp: Rfl: 09/14/2017 at 0900 metoprolol succinate XL, long acting, (TOPROL XL) 25 mg 24 hr tablet Take 1 tablet by mouth once daily. Disp: Rfl: 0 09/14/2017 at 0900 aspirin 81 mg chewable tablet Take 1 tablet by mouth once daily. Disp: Rfl: 0 09/14/2017 at 0900 CURRENT ALLERGIES: ALLERGIES Allergen Reactions - Iodine Hives - Penicillin Rash COMPLETE REVIEW OF SYSTEMS: GENERAL: No weight loss, malaise or fevers HEENT: Negative for frequent or significant headaches, No changes in hearing or vision, no nose bleeds or other nasal problems NECK: Negative for lumps, goiter, pain and significant neck swelling RESPIRATORY: No cough, wheezing or congestion CARDIOVASCULAR: No chest pain, palpitation or dizziness GI: No nausea, vomiting, or diarrhea : No history of dysuria, frequency or incontinence MUSCULOSKELETAL: Negative for joint pain or swelling, back pain or muscle pain SKIN: Negative for lesions, rash, and itching HEMATOLOGY/LYMPHOLOGY: Negative for prolonged bleeding, bruising easily or swollen nodes ENDOCRINE: Negative for cold or heat intolerance, polyuria, polydipsia and goiter NEURO: SEE HPI OBJECTIVE PHYSICAL EXAM: Patient Vitals for the past 24 hrs: BP Temp Temp src Pulse Resp SpO2 Height Weight 09/15/17 0800 153/62 36.7 ?C (98 ?F) Oral (!) 51 18 99 % - - 09/15/17 0600 130/53 36.3 ?C (97.4 ?F) Oral (!) 46 18 97 % - - 09/15/17 0400 127/55 36.4 ?C (97.5 ?F) Oral (!) 54 18 97 % - 87.9 kg (193 lb 12.6 oz) 09/15/17 0200 138/56 36.4 ?C (97.5 ?F) Oral (!) 57 18 99 % - - 09/15/17 0000 138/63 36.3 ?C (97.3 ?F) Oral (!) 57 18 98 % - - 09/14/17 2300 - - - - - - 175.3 cm (5' 9) - 09/14/17 2256 129/56 - - 63 18 98 % - - 09/14/17 2145 145/71 - - 57 18 100 % - - 09/14/17 2105 178/76 36.9 ?C (98.5 ?F) Oral 62 20 (!) 94 % - 87 kg (191 lb 12.8 oz) Body mass index is 28.62 kg/m?. GENERAL: Alert, no distress, cooperative HEAD/SINUSES: No significant findings EYES: EOMI, MELANIE OROPHARYNX: Mallampati class 4 NECK: No jugulovenous distention, Supple LUNGS: Lungs clear to auscultation, Good diaphragmatic excursion CARDIAC: No murmur, Regular ABDOMEN: Abdomen soft, non-tender, BS normal, No masses or organomegaly and + obesity EXTREMITIES: No edema, pallor or cyanosis NEURO: AAO, normal speech, no gross focal weakness DATA: Diagnostic tests reviewed for today's visit: Recent Labs 09/15/17 0428 09/14/172108 WBC 4.80 5.52 HB 10.9* 11.4* HCT 35.0* 37.1* PLT 182 196 NA 140 135* K 3.9 4.7 CHLOR 104 99 CO2 26 27 CREAT 1.40* 1.64* BUN 18 19 GLUC 92 104* CA 8.4* 8.9 Component Latest Ref Rng AND Units 09/15/2017 TSH 0.400 - 5.500 uU/mL 7.410 (H) Component Latest Ref Rng AND Units 09/14/2017 PT Sec 9.7 - 13.0 sec 10.7 PT INR 0.9 - 1.3 1.0 APTT 23.0 - 32.4 sec 23.6 Troponin T 0.000 - 0.029 ng/mL <0.010 DATE OF EXAM: Sep 14 2017 ?9:22PM ? CT BRAIN ATTACK WO IVCON IMPRESSION: Advanced chronic microvascular ischemic change, involving the cerebral white matter and numerous small remote lacunar infarcts. ?No clear evidence for focal acute ischemia or acute intracranial hemorrhage. Colonoscopy - 08/14/2015: Impression: ? - Patent functional end-to-end colo-colonic anastomosis. ? - The examination was otherwise normal. ? - The entire examined colon is normal. Biopsied. Recommendation: ? ? ? - Discharge patient to home. ? - Return to my office in 1 week. ? - Resume Plavix (clopidogrel) today at prior dose. ? - Patient has a contact number available for ? emergencies. The signs and symptoms of potential ? delayed complications were discussed with the patient. ? Return to normal activities tomorrow. Written discharge ? instructions were provided to the patient. ? - Continue present medications. ? - Resume previous diet. ? - Repeat colonoscopy in 10 years for screening purposes. No old records available for review. SIGNATURE: Richar Combs MD PATIENT NAME: Servando Sheriff CBC Collected: 09/15/2017 Status: F Source: [facility] 4:28 AM CLINIC OTHER CAMPUS REPOSITORY TYPE CODE TESTS RESULT OUT OF REFERENCE UNITS RANGE LAB WBC 3.70-11.00 k/uL WBC 4.80 LAB RBC 4.20-6.00 m/uL Low RBC 3.78 LAB HGB 13.0-17.0 g/dL Low Hemoglobin 10.9 LAB HCT 39.0-51.0 % Low Hematocrit 35.0 LAB MCV 80.0-100.0 fL MCV 92.6 LAB MCH 26.0-34.0 pG MCH 28.8 LAB MCHC 30.5-36.0 g/dL MCHC 31.1 LAB RDWCV 11.5-15.0 % RDW-CV 13.6 LAB PLTCT 150-400 k/uL Platelet Count 182 LAB MPV 9.0-12.7 fL MPV 10.8 Performed By: #### CBC, BMP #### [facility] [address] [facility] [phone] #### HBA1C, LIPB, HOMCYS #### [facility] [address] [place] [address] BASIC METABOLIC PANL Collected: 09/15/2017 Status: F Source: [facility] 4:28 AM CLINIC OTHER CAMPUS REPOSITORY TYPE CODE TESTS RESULT OUT OF REFERENCE UNITS RANGE LAB GLU 74-99 mg/dL Glucose 92 Result Comment: The [place] [employer] (ADA) provides guidance for cutoff values for fasting glucose and random glucose. The ADA defines fasting as no caloric intake for at least 8 hours. Fas ting plasma glucose results between 100 to 125 mg/dL indicate increased risk for diabetes (prediabetes). Fasting plasma glucose results greater than or equal to 126 mg/dL meet the criteria for diagnosis of diabetes. In the absence of unequivocal hyperglycemia, results should be confirmed by repeat testing. In a patient with classic symptoms of hyperglycemia or hyperglycemic crisis, random plasma glucose results greater than or equal to 200 mg/dL meet the criteria for diagnosis of diabetes. Reference: Standards of Medical Care in Diabetes 2016, [place] [employer]. Diabetes Care. 2016.39(Suppl 1). LAB BUN 9-24 mg/dL BUN 18 LAB CRET 0.73-1.22 mg/dL Creatinine High 1.40 LAB NA 136-144 mmol/L Sodium 140 LAB K 3.7-5.1 mmol/L Potassium 3.9 LAB CL 97-105 mmol/L Chloride 104 LAB CO2 22-30 mmol/L CO2 26 LAB AGAP 9-18 mmol/L Anion Gap 10 LAB CA 8.5-10.2 mg/dL Low Calcium, Total 8.4 LAB GFRAA eGFR- Amer. 59 LAB GFRNAA . eGFR-All Other Races 49 Result Comment: eGFR (Estimated GFR) Units of measure: mL/min/1.73 meters squared eGFR is derived from the reexpressed MDRD Study equation using the following parameters: serum creatinine, age, gender and race. The creatinine assay has been calibrated to be traceable to IDMS. An eGFR <60 mL/min/1.73m2 for >3 months is consistent with chronic kidney disease. Refer to KDOQI guidelines for clinical interpretation. In patients with unstable renal function, e.g. those with acute kidney injury, the eGFR may not accurately reflect actual GFR. Performed By: #### CBC, BMP #### [facility] [address] [place], [place] [id number] #### HBA1C, LIPB, HOMCYS #### [place] [id number] [place] [address] HEMOGLOBIN A1C Collected: 09/15/2017 Status: F Source: [place] 4:[address] [place] [address] REPOSITORY TYPE CODE TESTS RESULT OUT OF REFERENCE UNITS RANGE LAB HGBA1C 4.3-5.6 % High Hemoglobin A1c 5.9 LAB HBA0 mg/dL Est. Average Glucose 123 Result Comment: eAG: (Estimated average glucose) is a calculated value from HgbA1c and is c s s representative of the average blood glucose level in the last 2-3 month period. Performed By: #### CBC, BMP #### [facility] [address] [place], [place] [id number] #### HBA1C, LIPB, HOMCYS #### [place] [address] LIPID PANEL, BASIC Collected: 09/15/2017 Status: F Source: [place] 4:28 [facility] REPOSITORY TYPE CODE TESTS RESULT OUT OF REFERENCE UNITS RANGE LAB CHOL <200 mg/dL Cholesterol 153 Result Comment: <200 mg/dL, Desirable 200-239 mg/dL, Borderline high >239 mg/dL, High LAB TRIGLY <150 mg/dL Triglyceride 99 Result Comment: <150 mg/dL, Normal 150-199 mg/dL, Borderline high 200-499 mg/dL, High >499 mg/dL, Very high LAB HDL >39 mg/dL HDL-Cholesterol Low 34 Result Comment: 40-59 mg/dL, Acceptable >59 mg/dL, High: Negative risk factor for coronary heart disease <40 mg/dL, Low: Positive risk factor for coronary heart disease LAB LDL <100 mg/dL LDL-Cholesterol 99 Result Comment: <100 mg/dL, Optimal 100-129 mg/dL, Near optimal/above optimal 130-159 mg/dL, Borderline high 160-189 mg/dL, High >189 mg/dL, Very high Secondary prevention optimal LDL Cholesterol levels are recommended to be < 70 mg/dL LAB NONHDL <130 mg/dL Non HDL Cholesterol 119 Result Comment: <130 mg/dL, Optimal 130-159 mg/dL, Near optimal/above optimal 160-189 mg/dL, Borderline high 190-219 mg/dL, High >219 mg/dL, Very high Secondary prevention optimal non HDL Cholesterol levels are recommended to be < 100 mg/dL LAB FT hrs Fasting Time Unknown LAB VLDL <30 mg/dL VLDL 20 Cholesterol LAB TCHDL <5.10 TC:HDL Ratio 4.50 LAB LDLHDL <2.54 LDL:HDL Ratio High 2.91 Result Comment: Reference: 1. National Cholesterol Education Program ATP III Guideline At-A-Glance Quick Desk Reference: National Heart, Lung, and Blood [place]. National Institutes of Health. 2001: NIH Publication No. 01-3305. 2. An International Atherosclerosis Society position paper: global recommendations for the management of dyslipidemia: executive summary, Atherosclerosis. 2014: 232(2):410-413. Performed By: #### CBC, BMP #### [facility] [address] [place], [place] [id number] #### HBA1C, LIPB, HOMCYS #### [facility] [address] [place] [address] HOMOCYSTEINE Collected: 09/15/2017 Status: F Source: [place] 4:28 AM [facility] OTHER [place] REPOSITORY TYPE CODE TESTS RESULT OUT OF REFERENCE UNITS RANGE LAB HOMCYS <15.1 umol/L Homocysteine 13.9 Performed By: #### CBC, BMP #### [facility] [address] [place] [address] #### HBA1C, LIPB, HOMCYS #### [facility] [address] [place] [address] TSH Collected: 09/15/2017 Status: F Source: [place] 4:28 AM [facility] OTHER [place] REPOSITORY TYPE CODE TESTS RESULT OUT OF RANGE REFERENCE UNITS LAB TSH 0.400-5.500 uU/mL High TSH 7.410 Performed By: #### TSH #### [facility] [address] [facility] [phone] #### B12 #### [facility] [address] [place] [address] VITAMIN B12 Collected: 09/15/2017 Status: F Source: [place] 4:28 AM [facility] OTHER CAMPUS REPOSITORY TYPE CODE TESTS RESULT OUT OF REFERENCE UNITS RANGE LAB B12 232-1245 pg/mL Vitamin B12 417 Performed By: #### TSH #### [facility] [address] [facility] [phone] #### B12 #### [facility] [address] [place] [address] NURSING PROG Observed: 09/15/2017 Status: COMPLETED Source: [place] 3:38 AM CLINIC OTHER [place] REPOSITORY HNO ID: [id number] Author: Monique (Rn) EMA Menodza Service: (none) Author Type: Registered Nurse Type: Nursing Progress Note Filed: 09/15/2017 3:43 AM Note Text: Nursing Progress Note Patient Name: Servando Sheriff Patient Location: [id number] Daily Note: 0000- Pt arrived to floor in stable condition. Assessment performed. NIH and Neuro check performed. Refer to flow sheets. Pt resting comfortably in bed with call light in reach. Pt SB on tele HR 57. 0100- Called Dr. Combs. Orders received 0200- Swallow screen performed. Neuro check performed. No new findings Pt denies needs at this time. Pt resting comfortably in bed with call light in reach. SB on tele HR 57 0400- Neuro check performed. No new findings Pt denies needs at this time. Pt resting comfortably in bed with call light in reach. SB on tele HR 59 0600- Neuro check performed. No new findings Pt denies needs at this time. Pt resting comfortably in bed with call light in reach. SB on tele HR 55 This note was completed by: Monique Mendoza RN ED NOTE Observed: 09/14/2017 Status: COMPLETED Source: [place] 10:49 PM [facility] OTHER CAMPUS REPOSITORY HNO ID: [id number] Author: Dotty Stanley RN Service: (none) Author Type: Registered Nurse Type: ED Notes Filed: 09/14/2017 10:49 PM Note Text: receipt and report clerkaMurice aware of bed assignment. ED NOTE Observed: 09/14/2017 Status: COMPLETED Source: [place] 10:29 PM CLINIC OTHER CAMPUS REPOSITORY HNO ID: [id number] Author: Dotty Schaeffer) EMA Stanley Service: (none) Author Type: Registered Nurse Type: ED Notes Filed: 09/14/2017 10:29 PM Note Text: Tolerating regular diet with no complications. Dr. Garcia ok with him eating. ED NOTE Observed: 09/14/2017 Status: COMPLETED Source: [place] 10:06 PM [facility] OTHER [place] REPOSITORY HNO ID: [id number] Author: Dotty Schaeffer) EMA Stanley Service: (none) Author Type: Registered Nurse Type: ED Notes Filed: 09/14/2017 10:06 PM Note Text: Dr. Garcia at . ED NOTE Observed: 09/14/2017 Status: COMPLETED Source: [place] 9:30 PM [facility] OTHER CAMPUS REPOSITORY HNO ID: [id number] Author: Cookie Hinds RN Service: Emergency Medicine Author Type: Registered Nurse Type: ED Notes Filed: 09/14/2017 9:30 PM Note Text: states pt is a stroke protocol ED NOTE Observed: 09/14/2017 Status: COMPLETED Source: [place] 9:30 PM CLINIC OTHER CAMPUS REPOSITORY HNO ID: [id number] Author: Cookie DuncanRn) EMA Hinds Service: Emergency Medicine Author Type: Registered Nurse Type: ED Notes Filed: 09/14/2017 10:04 PM Note Text: Report off care to Dotty BOO ED NOTE Observed: 09/14/2017 Status: COMPLETED Source: [place] 9:25 PM CLINIC OTHER CAMPUS REPOSITORY HNO ID: [id number] Author: Cookie Hinds RN Service: Emergency Medicine Author Type: Registered Nurse Type: ED Notes Filed: 09/14/2017 9:33 PM Note Text: Patient returned to the Emergency Department. ED NOTE Observed: 09/14/2017 Status: COMPLETED Source: [place] 9:25 PM [facility] OTHER CAMPUS REPOSITORY HNO ID: [id number] Author: Dotty (Rn) EMA Stanley Service: (none) Author Type: Registered Nurse Type: ED Notes Filed: 09/14/2017 11:19 PM Note Text: Brief report rec'd. Assumed care of patient. CT BRAIN ATTACK WO Observed: 09/14/2017 Status: F Source: [place] IVCON 9:22 PM [facility] OTHER CAMPUS REPOSITORY * * *Final Report* * * DATE OF EXAM: Sep 14 2017 9:22PM [facility] [place] BRAIN ATT[place] WO IVCON / PROCEDURE REASON: Focal neuro deficit, new, fixed or worsening, <6 hours * * * * Physician Interpretation * * * * EXAMINATION: CT BRAIN ATTACK WO IVCON CLINICAL HISTORY: Focal neuro deficit, new, fixed or worsening, <6 hours Brain attack. TECHNIQUE: Routine CT of the brain without IV contrast. MQ: CTBA_4 CT Dose-Length Product (DLP): 746 mGy*cm CT Dose Reduction Employed: No dose reduction techniques were required COMPARISON: None. RESULT: Acute ischemic change: None. ASPECT Score = 10 Hemorrhage: No evidence of acute intracranial hemorrhage. ECASS Hemorrhagic Transformation Score = Not Applicable Mass Lesion / Mass Effect: There is no evidence of an intracranial mass or extraaxial fluid collection. No significant mass effect. Chronic change: Advanced chronic microvascular ischemic change throughout the cerebral white matter, and there are numerous remote lacunar infarcts involving both external capsules, both lentiform nuclei and caudate nuclei and right and left thalamus. This overall pattern suggests a predominantly microvascular pattern of disease. Atherosclerotic calcifications are visible involving the V4 segments of the vertebral arteries, cavernous and clinoid segments of both ICAs. Parenchyma: Moderate to severe generalized brain volume loss. Ventricles: Proportionate to volume loss. Other: The visualized calvarium, skull base, orbits and extracranial soft tissues are normal. IMPRESSION: Advanced chronic microvascular ischemic change, involving the cerebral white matter and numerous small remote lacunar infarcts. No clear evidence for focal acute ischemia or acute intracranial hemorrhage. CRITICAL TEST/RESULTS: Notification initiated at 21:25. Communicated with Physician: KADE GARCIA on 09/14/2017 at 21:28. CR_1 [employer] Assistant: ORLIN Transcribe Date/Time: Sep 14 2017 9:26P Dictated by : JASON TIRADO MD This examination was interpreted and the report reviewed and electronically signed by: JASON TIRADO MD on Sep 14 2017 9:34PM EST [id number] ED NOTE Observed: 09/14/2017 Status: COMPLETED Source: [place] 9:18 PM [facility] OTHER [facility]AMPUS REPOSITORY HNO ID: [id number] Author: Cookie (Rn) EMA Hinds Service: Emergency Medicine Author Type: Registered Nurse Type: ED Notes Filed: 09/14/2017 9:35 PM Note Text: Patient transported to CT with monitor, Nurse and Tech. XR CHEST 1V FRONTAL Observed: 09/14/2017 Status: F Source: [facility] 9:17 PM [facility] OTHER CAMPUS REPOSITORY * * *Final Report* * * DATE OF EXAM: Sep 14 2017 9:17PM [facility] 5376 - XR CHEST 1V FRONTAL PORT / PROCEDURE REASON: Focal neuro deficit, new, fixed or worsening, <6 hours * * * * Physician Interpretation * * * * EXAMINATION: CHEST RADIOGRAPH (PORTABLE SINGLE VIEW AP) 09/14/2017 Exam Date/Time: 09/14/2017 9:17 PM Clinical History: Focal neuro deficit, new, fixed or worsening, <6 hours MQ: XCPMC_5 Comparison: CT abdomen 06/30/2014. RESULT: Lines, tubes, and devices: Sternotomy wires. Other artifacts overlie the chest. Lungs and pleura: No pulmonary infiltrates, effusions, or pneumothorax. Cardiomediastinal silhouette: Stable mild cardiomegaly. Apparent hiatal hernia. Hilar structures within normal limits. Other: Degenerative changes in the spine.. IMPRESSION: 1. Status post sternotomy. Mild cardiomegaly. 2. Apparent hiatal hernia. 3. No acute cardiopulmonary changes. Railway Yard Assistant: ORLIN Transcribe Date/Time: Sep 14 2017 9:52P Dictated by : TEODORO WHITE MD This examination was interpreted and the report reviewed and electronically signed by: TEODORO WHITE MD on Sep 14 2017 9:57PM EST [id number] ED PROV NOTE Observed: 09/14/2017 Status: COMPLETED Source: [place] 9:13 PM CLINIC OTHER CAMPUS REPOSITORY O ID: [id number] Author: Kade Garcia DO Service: (none) Author Type: Physician Type: ED Provider Notes Filed: 09/14/2017 10:44 PM Note Text: ED Provider Note Patient Name: Servando Sheriff SERVICE DATE: 09/14/17 History Patient presents with: Potential Stroke Symptoms The patient is a 77-year-old male with history of diabetes, hypertension, GERD, MT, kidney stones, TIA, stroke, comes in today via EMS from a restaurant for reports of slurred speech. Patient reportedly just got home from [place] and her grandson picked him up from the airport. They went to eat. While eating, the patient has sudden onset slurred speech approximately 20 minutes prior to arrival. The patient's also noted that his left hand appeared to be somewhat contracted. The patient currently has no symptoms. Stroke alert was called by EMS prior to arrival. Patient currently has a frontal headache. He does know that he had some slurred speech. He denies weakness. PAST MEDICAL HISTORY Diagnosis Date - Diabetes (HCC) - GERD (gastroesophageal reflux disease) - Heart disease - HTN (hypertension) - Hypokalemia - Kidney stones - MT (myocardial infarction) (HCC) - Stroke (HCC) PAST SURGICAL HISTORY Procedure Laterality Date - COLONOSCOP W/ OR W/O BRSH SPEC 08/14/15 normal - 10 year follow up - HEART SURGERY HX - LAPT RPR PARAESOPH HIATAL HERNIA W/ MESH - PART REMOVAL COLON W ANASTOMOSIS 09/15/13 sigmoid resection and lysis of adhesions for volvulus - PAST SURGICAL HISTORY OF triple bypass with 6 stents - PAST SURGICAL HISTORY OF stents x 2 FAMILY HISTORY Problem Relation Age of Onset - Cancer Paternal Aunt colon cancer Social History Social History Main Topics - Smoking status: Former Smoker - Smokeless tobacco: Never Used - Alcohol use No - Drug use: No - Sexual activity: Not on file ALLERGIES Allergen Reactions - Iodine Hives - Penicillin Rash Review of Systems Constitutional: Negative. HENT: Negative. Eyes: Negative. Respiratory: Negative. Cardiovascular: Negative. Gastrointestinal: Negative. Genitourinary: Negative. Musculoskeletal: Negative. Skin: Negative. Neurological: Positive for speech difficulty. Psychiatric/Behavioral: Negative. Physical Exam BP 178/76 Pulse 62 Temp (Src) 98.5 (Oral) Resp 20 Wt 191 lb 12.8 oz (87.0kg) SpO2 94% Physical Exam Constitutional: He appears well-developed and well-nourished. No distress. HENT: Head: Normocephalic and atraumatic. Mouth/Throat: Oropharynx is clear and moist. No oropharyngeal exudate. Eyes: EOM are normal. Pupils are equal, round, and reactive to light. No scleral icterus. Neck: Neck supple. Cardiovascular: Normal rate, regular rhythm, normal heart sounds and intact distal pulses. Exam reveals no gallop and no friction rub. No murmur heard. Pulmonary/Chest: Effort normal and breath sounds normal. No respiratory distress. He has no wheezes. He has no rales. Abdominal: Soft. Bowel sounds are normal. He exhibits no distension and no mass. There is no tenderness. There is no rebound and no guarding. Musculoskeletal: Normal range of motion. He exhibits no edema. Neurological: He is alert. Knows he is at [facility]. He believes it is September 2016. Motor strength is equal bilaterally. Sensory is intact throughout. No slurred speech noted at this time. Skin: Skin is warm and dry. Capillary refill takes less than 2 seconds. He is not diaphoretic. Psychiatric: He has a normal mood and affect. His behavior is normal. Judgment and thought content normal. Nursing note and vitals reviewed. Diagnostic Testing ED Labs Ordered and Reviewed - No data to display EKG shows sinus rate cardia with a rate of 55 with left axis deviation. No ST elevation. Flipped T's in lead 3. CBC shows mild anemia with hemoglobin 11.4. BMP shows a creatinine 1.64. INR is 1. Troponin is negative. CT BRAIN ATTACK WO IVCON (Final result) ?? ?Abnormal Result time 09/14/17 21:36:46 Final result by [facility] [place] Provider (09/14/17 21:36:46) Impression: IMPRESSION: Advanced chronic microvascular ischemic change, involving the cerebral white matter and numerous small remote lacunar infarcts. ?No clear evidence for focal acute ischemia or acute intracranial hemorrhage. CRITICAL TEST/RESULTS: ?Notification initiated at 21:25. ?Communicated with Physician: KADE GARCIA on 09/14/2017 at 21:28. ? XR CHEST 1V FRONTAL PORT (Final result) Result time 09/14/17 21:59:28 Final result by [facility] [place] Provider (09/14/17 21:59:28) Impression: IMPRESSION: 1. ?Status post sternotomy. ?Mild cardiomegaly. 2. ?Apparent hiatal hernia. 3. ?No acute cardiopulmonary changes. Procedures Medical Decision Making MDM Course: Vital signs were reviewed. Triage records were reviewed. Medical records were reviewed. Nursing notes were reviewed and incorporated. Medical Decision Making: The patient is a 77-year-old male with history of TIA or stroke, diabetes, hypertension, MT, comes in today for reports of slurred speech and left arm contracture. This started 20 units prior to arrival. It is resolved on my exam. NIH is 0. Stroke alert called [employer]. 2125: radiology called to let us know that the CT does not show anything acute. He has a lot of volume loss but nothing acute. It appears that he has had multiple lacunar infarcts in the past. Stroke protocol initiated. 2239: pt will be admitted to Dr. Riki Combs The attending who evaluated and managed this patient was Kade Garcia . Plan: The patient was admitted to Regular nursing floor. Case discussed with admitting physician, Dr. Riki Combs. Consent: A procedure or transfusion was performed - No Kade Garcia DO ED Course / Clinical Impression Plan The patient was ADMITTED TO: Regular nursing floor. Condition at time of disposition: stable SIGNATURE: DO Kade Jacobs DO 09/14/17 2244 ED NOTE Observed: 09/14/2017 Status: COMPLETED Source: [place] 9:13 PM [facility] [place] REPOSITORY HNO ID: [id number] Author: Cookie Schaeffer) EMA Hinds Service: Emergency Medicine Author Type: Registered Nurse Type: ED Notes Filed: 09/14/2017 9:13 PM Note Text: Medic x2 at bedside attempting to establish PIV access. Labs drawn and sent. ED NOTE Observed: 09/14/2017 Status: COMPLETED Source: [place] 9:12 PM [facility] OTHER [place] REPOSITORY HNO ID: [id number] Author: Cookie Schaeffer) EMA Hinds Service: Emergency Medicine Author Type: Registered Nurse Type: ED Notes Filed: 09/14/2017 9:13 PM Note Text: at bedside, reports that pt has had mini strokes in the past with no residual. CBC Collected: 09/14/2017 Status: F Source: [place] 9:09 PM [facility] OTHER CAMPUS REPOSITORY TYPE CODE TESTS RESULT OUT OF REFERENCE UNITS RANGE LAB WBC 3.70-11.00 k/uL WBC 5.52 LAB RBC 4.20-6.00 m/uL Low RBC 4.02 LAB HGB 13.0-17.0 g/dL Low Hemoglobin 11.4 LAB HCT 39.0-51.0 % Low Hematocrit 37.1 LAB MCV 80.0-100.0 fL MCV 92.3 LAB MCH 26.0-34.0 pG MCH 28.4 LAB MCHC 30.5-36.0 g/dL MCHC 30.7 LAB RDWCV 11.5-15.0 % RDW-CV 13.7 LAB PLTCT 150-400 k/uL Platelet Count 196 LAB MPV 9.0-12.7 fL MPV 11.4 Performed By: #### CBC, PT, PTT, BMP #### [facility] [address] [place] [address] PROTIME Collected: 09/14/2017 Status: F Source: [place] 9:09 PM [facility] OTHER CAMPUS REPOSITORY TYPE CODE TESTS RESULT OUT OF RANGE REFERENCE UNITS LAB PSEC 9.7-13.0 sec PT Sec 10.7 LAB INR 0.9-1.3 PT INR 1.0 Result Comment: Vitamin K Antagonist (VKA) Therapeutic Range: INR 2 to 3 (Target INR of 2.5) Note: For patients treated with VKA drugs, such as warfarin, the [place] [employer] 2012 Guideline recommends a therapeutic INR range of 2 to 3 (target INR of 2.5). This recommendation includes high-risk patients with antiphospholipid syndrome with previous arterial or venous thromboembolism, current-generation mechanical or bioprosthetic aortic heart valve replacement. Note: Patients with mechanical aortic valve replacement and additional risk factors for thromboembolic events (atrial fibrillation, previous thromboembolism, LV dysfunction, hypercoagulable conditions) or an older generation mechanical AVR (i.e., ball in-Cage) or any mechanical MVR should have a INR therapeutic range of 2.5 to 3.5 (target INR of 3). Mariama BLACKWELL, et al. Chest 2012, 141:7S-47S Bj KRUGER et al. [facility] 2017, 70: 252-289 Performed By: #### CBC, PT, PTT, BMP #### [facility] [address] [facility] [phone] APTT Collected: 09/14/2017 Status: F Source: [place] 9:09 PM [facility] REPOSITORY TYPE CODE TESTS RESULT OUT OF RANGE REFERENCE UNITS LAB APTT 23.0-32.4 sec APTT 23.6 Result Comment: Unfractionated Heparin Therapeutic Ranges: Standard Heparin Nomogram: 53 to 78 seconds (anti-Xa level of 0.3 to 0.7 U/ml) Low Dose/ACS Nomogram: 49 to 67 seconds (anti-Xa level of 0.2 to 0.5 U/ml) Stroke Treatment Nomogram: 49 to 67 seconds (anti-Xa level of 0.2 to 0.5 U/ml) Note: The APTT therapeutic range has been determined for the current lot of laboratory APTT reagent in use throughout the [facility]. Performed By: #### CBC, PT, PTT, BMP #### [facility] [address] [facility] [phone] BASIC METABOLIC PANL Collected: 09/14/2017 Status: F Source: [place] 9:09 PM [facility] REPOSITORY TYPE CODE TESTS RESULT OUT OF REFERENCE UNITS RANGE LAB GLU 74-99 mg/dL High Glucose 104 Result Comment: The [place] Diabetes Association (ADA) provides guidance for cutoff values for fasting glucose and random glucose. The ADA defines fasting as no caloric intake for at least 8 hours. Fas ting plasma glucose results between 100 to 125 mg/dL indicate increased risk for diabetes (prediabetes). Fasting plasma glucose results greater than or equal to 126 mg/dL meet the criteria for diagnosis of diabetes. In the absence of unequivocal hyperglycemia, results should be confirmed by repeat testing. In a patient with classic symptoms of hyperglycemia or hyperglycemic crisis, random plasma glucose results greater than or equal to 200 mg/dL meet the criteria for diagnosis of diabetes. Reference: Standards of Medical Care in Diabetes 2016, [place] [employer]. Diabetes Care. 2016.39(Suppl 1). LAB BUN 9-24 mg/dL BUN 19 LAB CRET 0.73-1.22 mg/dL Creatinine High 1.64 LAB NA 136-144 mmol/L Low Sodium 135 LAB K 3.7-5.1 mmol/L Potassium 4.7 LAB CL 97-105 mmol/L Chloride 99 LAB CO2 22-30 mmol/L CO2 27 LAB AGAP 9-18 mmol/L Anion Gap 9 LAB CA 8.5-10.2 mg/dL Calcium, Total 8.9 LAB GFRAA eGFR- Amer. 49 LAB GFRNAA . eGFR-All Other Races 41 Result Comment: eGFR (Estimated GFR) Units of measure: mL/min/1.73 meters squared eGFR is derived from the reexpressed MDRD Study equation using the following parameters: serum creatinine, age, gender and race. The creatinine assay has been calibrated to be traceable to IDMS. An eGFR <60 mL/min/1.73m2 for >3 months is consistent with chronic kidney disease. Refer to KDOQI guidelines for clinical interpretation. In patients with unstable renal function, e.g. those with acute kidney injury, the eGFR may not accurately reflect actual GFR. Performed By: #### CBC, PT, PTT, BMP #### [facility] [address] [phone] TROPONIN T Collected: 09/14/2017 Status: F Source: [place] 9:09 PM [facility] REPOSITORY TYPE CODE TESTS RESULT OUT OF REFERENCE UNITS RANGE LAB TROPT 0.000-0.029 ng/mL Troponin T <0.010 Performed By: #### SHIRA #### [facility] [address] [facility] [phone] ED NOTE Observed: 09/14/2017 Status: COMPLETED Source: [place] 9:06 PM [facility] REPOSITORY HNO ID: [id number] Author: Cookie Schaeffer) Lizet, RN Service: Emergency Medicine Author Type: Registered Nurse Type: ED Notes Filed: 09/14/2017 9:09 PM Note Text: Dr. Garcia at bedside ED NOTE Observed: 09/14/2017 Status: COMPLETED Source: [place] 9:05 PM [facility] REPOSITORY HNO ID: [id number] Author: Cookie Schaeffer) Lizet, RN Service: Emergency Medicine Author Type: Registered Nurse Type: ED Notes Filed: 09/14/2017 9:07 PM Note Text: Pt was eating at [employer] and had sudden onset of speech changes. describes speech as slurred, was not able to consistently follow directions. EMS reports left sided weakness. Pt has hx of strokes. Symptoms started at approx 2030. 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: ED Notes Filed: 09/14/2017 9:04 PM Note Text: Bed: ED-07 Expected date: Expected time: Means of arrival: Comments: LST M4 ALLERGIES ALLERGIES DATE TYPE / CODE NAME / CODE REACTION SEVERITY SOURCE 02/24/2018 Drug Penicillins/F0010 Rash Unknown Quique Allergy/416 48304(RXNORM) [facility] 134544([facility] ED CT) Repository 02/24/2018 Drug iodine/[id number] Hives Unknown Quique Allergy/416 (RXNORM) [facility] 703817([facility] ED CT) Repository 07/19/2015 DRUG PENICILLIN RASH [facility]419 Other [place] 278837([facility] ED CT) 09/30/2013 DRUG IODINE HIVES [facility]419 Other [place] 720504([facility] ED CT) ENCOUNTERS ENCOUNTERS ADMIT/DISCHARGE ACCOUNT ADMITTING ENCOUNTER LOCATION SOURCE NUMBER CLASS 05/12/2018 [id number] Ambulatory Building:[facility] Practices Repository 04/30/2018/05/14/19 [id number] Caleb, Ravinder Chi Inpatient Hart[place] Quique 19 Encounter [facility] ing:TCURoom: Repository EIH40Dog: 1 04/25/2018 [id number] Ambulatory BMSBuilding:W [facility] Repository 04/24/2018/04/30/19 [id number] [place], Ambulatory [place]ley Quique 19 Ghasem [facility] ing:RW7Iigc: Repository JQ857Dqo: 1 04/24/2018 [id number] [place], Ambulatory BMSBuilding:B Quique Ghasem [facility] Repository 04/24/2018 [id number] [place], Ambulatory BMSBuilding:B Hartley Ghasem [facility] Repository 04/24/2018 [id number] [place], Ambulatory BMSBuilding:B Hartley Ghasem MS.[facility] Repository 04/24/2018 [id number] [place], Ambulatory BMSBuilding:B Hartley Ghasem MS.[facility] Repository 04/24/2018 [id number] [place], Ambulatory BMSBuilding:Noy Shrestham MS.[facility] Repository 04/24/2018 [id number] [facility], Ambulatory BMSBuilding:Noy Shrestham MS.[facility] Repository 04/24/2018 [id number] [place], Ambulatory BMSBuilding:Noy Shrestham MS.[facility] Repository 04/19/2018 [id number] [facility] ing:CT Repository 04/08/2018 [id number] [facility] ing:[facility]SPEC Repository 02/24/2018/02/25/20 [id number] Ambulatory BMSBuilding:Noy Hartley 18 [place].[facility] Repository 09/14/2017/09/17/19 [id number] [place], Ambulatory [address] Repository FUNCTIONAL STATUS FUNCTIONAL STATUS No Functional Status Records FoundEQUIPMENT EQUIPMENT No Equipment Records FoundPAYERS PAYERS ENCOUNTER GUARANTOR PAYER SUBSCRIBER SOURCE 05/12/2018 Gene R RhodesDOB: Primary Gene R RhodesDOB: OHIP Practices Insurance:Medical [id number] Repository [facility] [address] AdvPolicy Number: [address] [address]Rnh: (066) [id number] [id number]: ()Tel: Date:9512-17-29Qcbi [id number] () Name:CPO [address], [place] [phone]: 05/12/2018 Secondary Gene R RhodesDOB: [place]IP Practices Insurance:Medicare [id number] Repository licy Number: [facility] [id number] [address] Date: [address]Ehd: [phone]) [id number] [phone] (HP) Name:SAND SCREENER OPERATORJaime Becker [address], [place] [address]VO: 05/12/2018 Tertiary Gene R RhodesDOB: OHIP Practices Insurance:Hum//Medic [id number] Repository are [facility] [address] Number: [address] [id number]: (330) Date:2015-04-277484 (HP) [id number] Name:[facility] Eugenio [address] [place] [address]JT: 05/12/2018 Tertiary Gene R RhodesDOB: OHIP Practices Insurance:Medical [id number] Repository [facility] [address] [facility] [facility] [address] Number: [address] [id number] [address]Hor: (330) Date:2016-04-279191 (HP) [id number] Name:[facility] Eugenio [address] [place] [id number]: 04/30/2018 GENE R [id number] Primary GENE R RHODESDOB: Quique [place] Insurance:O [id number] [facility] [address] [id number]: (330) Number: Repository [phone] () [id number] Date:7156-99-84LO [address] [place] [address]QF: 04/30/2018 Secondary NOT GIVENUNK Quique Insurance:SELF PAY [facility] Number: Effective Repository Date:2018-04-30 04/25/2018 GENE R [id number] Primary GENE R RHODESDOB: Quique [place] Insurance:[facility] [id number] [facility] [address] [place] [id number]: (330) Number: Repository [phone] () [id number] Date:2284-23-54RL [address] [place] [id number]: 04/25/2018 Secondary NOT GIVENUNK Quique Insurance:SELF PAY [facility] Number: Effective Repository Date:2018-04-25 04/24/2018 GENE R [id number] Primary GENE R RHODESDOB: Quique [place] Insurance:MMO [id number] [address] [id number]: (330) Number: Repository [phone] () [id number] Date:1265-71-85XN [address] [place], [place] [address]WP: 04/24/2018 Secondary NOT GIVENUNK Quique Insurance:SELF PAY [facility] Number: Effective Repository Date:2018-04-24 04/24/2018 GENE R [id number] Primary GENE R RHODESDOB: Quique [place] Insurance:MMO [id number] [address] [facility] [facility] [place] [address]Tel: (330) Number: Repository [phone] () [id number] Date:1031-27-16IM [address] [place], [place] [address]WP: 04/24/2018 Secondary NOT GIVENUNK [place] Insurance:SELF PAY [facility] Number: Effective Repository Date:2018-04-24 04/24/2018 GENE R [id number] Primary GENE R RHODESDOB: Quique [place] Insurance:MMO [id number] [address] [place] [id number]: (330) Number: Repository [phone] () [id number] Date:4972-03-74IS [address] [place], [place] [address]WP: 04/24/2018 Secondary NOT GIVENUNK Hart[place] Insurance:SELF PAY [facility] Number: Effective Repository Date:2018-04-24 04/24/2018 GENE R [id number] Primary GENE R RHODESDOB: Hartley [place] Insurance:MMO [id number] [address] [facility] [facility] [place] [id number]: (330) Number: Repository [phone] () [id number] Date:1319-89-48XC [address] [place], [place] [address]WP: 04/24/2018 Secondary NOT GIVENUNK Quique Insurance:SELF PAY [facility] Number: Effective Repository Date:2018-04-24 04/24/2018 GENE R [id number] Primary GENE R RHODESDOB: Quique [place] Insurance:MMO [id number] [address] [facility] [address]Lnp: (330) Number: Repository [phone] () [id number] Date:5544-54-12GN [address] [place], [place] [address]WP: 04/24/2018 Secondary NOT GIVENUNK Hart[place] Insurance:SELF PAY [facility] Number: Effective Repository Date:2018-04-24 04/24/2018 GENE R [id number] Primary GENE R RHODESDOB: Quique [place] Insurance:MMO [id number] [address] [facility] [place] [address]Tel: (330) Number: Repository [phone] () [id number] Date:8270-17-85VN [address] [place], [place] [address]WP: 04/24/2018 Secondary NOT GIVENUNK Hart[place] Insurance:SELF PAY [facility] Number: Effective Repository Date:2018-04-24 04/24/2018 GENE R [id number] Primary GENE R RHODESDOB: Hartley [place] Insurance:MMO [id number] [facility] [address] [facility] [place] [address]Tel: (330) Number: Repository [phone] () [id number] Date:4731-31-40LK [address] [place], [place] [address]WP: 04/24/2018 Secondary NOT GIVENUNK Quique Insurance:SELF PAY [facility] Number: Effective Repository Date:2018-04-24 04/24/2018 GENE R [id number] Primary GENE R RHODESDOB: Quique [place] Insurance:MMO [id number] [address] [place] [facility] [place] [address]Ayg: (330) Number: Repository [phone] () [id number] Date:0802-78-09VS [address] [place], [place] [address]WP: 04/24/2018 Secondary NOT GIVENUNK Hart[place] Insurance:SELF PAY [facility] Number: Effective Repository Date:2018-04-24 04/19/2018 GENE R [id number] Primary GENE R RHODESDOB: Hartley [place] Insurance:MMO [id number] [facility] [address] [facility] [facility] [place] [address]Lig: (330) Number: Repository [phone] () [id number] Date:5465-43-48LG [address] [place], [place] [address]WP: 04/19/2018 Secondary NOT GIVENUNK Quique Insurance:SELF PAY [facility] Number: Effective Repository Date:2018-04-08 04/08/2018 GENE R [id number] Primary GENE R RHODESDOB: [address] [address] Insurance:MMO [id number] [facility] [address] [place] [id number]: (330) Number: Repository [phone] () [id number] Date:3447-27-59WV [address] [place], [place] [address]WP: 04/08/2018 Secondary NOT GIVENUNK [place] Insurance:SELF PAY [facility] Number: Effective Repository Date:2018-04-08 02/24/2018 GENE R [id number] Primary GENE R RHODESDOB: Quique [address] [address] Insurance:MMO [id number] [facility] [address] [facility] [place] [address]Fyl: (330) Number: Repository [phone] () [id number] Date:8010-37-24SG [address] [place], [place] [address]WP: 02/24/2018 Secondary NOT GIVENUNK Quique Insurance:SELF PAY [facility] Number: Effective Repository Date:2018-02-24 SOCIAL HISTORY SOCIAL HISTORY No Social History Records FoundFAMILY HISTORY FAMILY HISTORY No Family History Records FoundPREGNANCY No Status Records FoundADVANCE DIRECTIVES ADVANCE DIRECTIVES No Advanced Directives Records FoundINFORMATION SOURCE INFORMATION SOURCE DATE CREATED AUTHOR AUTHOR'S ORGANIZATION 05/19/2018 WILBERT
== END ==
PROVIDERS: Family Provider Nurse Practitioner; PCP Nurse Practitioner; Referring Provider Nurse Practitioner Adult Health; Visit Provider Nurse Practitioner Adult Health
DX: R31.0 Gross hematuria (principal)
CPT/HCPCS: 87086; 87088

== ENCOUNTER → 2018-04-19 12:42 | Outpatient (CLI) | payer MEDICARE, SELFPAY ==
--- NOTE | 2018-04-19 12:45 | CT_ITS ---
STUDY: CT ABDOMEN AND PELVIS WITHOUT CONTRAST REASON FOR EXAM: Male, 78 years old. Gross hematuria RADIATION DOSAGE (If Supplied By Facility): CTDIvol = ( 14.02 ) mGy, DLP = ( 743.85 ) mGycm TECHNIQUE: Transaxial images were obtained from the dome of the diaphragm to the symphysis pubis without oral contrast, and without intravenous contrast. Sagittal and coronal images were reconstructed. Individualized dose optimization techniques were used for this CT. COMPARISON: September 15, 2013 FINDINGS: There is minimal bilateral dependent atelectasis and/or scarring. There are coronary artery calcifications present. There are sternotomy wires present. Normal liver. Normal gallbladder and extrahepatic biliary system. Normal spleen. Normal pancreas. Normal bilateral adrenal glands. There are grossly stable peripherally calcified cysts within the right kidney the larger measuring up to 5.8 cm. There are additional simple cysts within the right kidney noted as well. There is a nonobstructing 7.3 mm right renal calculus. There is mild distal hydroureter secondary to a 4 mm calculus within the distal ureter. There are left renal cysts. There are nonobstructing left renal calculi measuring up to 5.6 mm. There is a small hiatal hernia. Normal small intestine. Normal colon. There is non-visualization of the appendix. There is diffuse atherosclerotic calcification of the abdominal aorta, without a demonstrated aneurysm. Normal inferior vena cava. Normal retroperitoneum. Normal urinary bladder. Normal abdominal wall. There are diffuse degenerative changes of the visualized lumbar spine. There is a mild L1 compression deformity not significantly changed since the prior examination. CT/Abdomen/Pelvis without Cont IMPRESSION: Mild distal right hydroureter associated with a 4.0 mm calculus within the distal ureter. Bilateral nonobstructing renal calculi measuring up to 7.3 mm on the right. Bilateral renal cysts. Atherosclerosis. Degenerative changes. Hiatal hernia. Electronically Signed: Meka Segura MD at 14:02 EST Tel , Service support ,
== END ==
PROVIDERS: Family Provider Nurse Practitioner; PCP Nurse Practitioner; Referring Provider Urology; Visit Provider Urology
DX: R31.0 Gross hematuria (principal)
CPT/HCPCS: 74176

== ENCOUNTER 2018-04-24 15:42 | Observation (INO) | payer MEDICARE, SELFPAY ==
[2018-04-24 15:43] VITALS: BP 106/60; PULSE 65; RESP 18; TEMP 35.7; O2SAT 100; BMI 30.2
--- NOTE | 2018-04-24 15:57 | CT_ITS ---
STUDY: CT BRAIN WITHOUT CONTRAST REASON FOR EXAM: Male, 78 years old. Fall, confusion. RADIATION DOSAGE (If Supplied By Facility): CTDIvol = ( 44.99 ) mGy, DLP = ( 796.11 ) mGycm TECHNIQUE: Transaxial CT imaging of the brain was performed without administration of intravenous contrast material. Individualized dose optimization techniques were used for this CT. COMPARISON: CT brain 02/27/2016. FINDINGS: Normal soft tissue structures. Normal calvarium. There is severe cerebral atrophy with widening of the extra-axial spaces and ventricular dilatation. There are areas of decreased attenuation within the white matter tracts of the supratentorial brain, consistent with microvascular disease changes. Normal basal ganglia and thalami. Normal brainstem. Normal cerebellum. There is no intracranial hemorrhage. There are no findings of an acute ischemic infarction. There is a chronic left basal ganglia infarct. Normal visualized paranasal sinuses. CT/Brain/Head without Contrast IMPRESSION: 1. No acute process. 2. Chronic left basal ganglia lacunar infarct. 3. Microvascular ischemic changes. Atrophy. Electronically Signed: Matilde Espinoza MD at 18:01 EST Tel , Service support ,
--- NOTE | 2018-04-24 15:58 | EKG12_ITS ---
Test Reason : FALL Blood Pressure : / mmHG Vent. Rate : 053 BPM Atrial Rate : 053 BPM P-R Int : 136 ms QRS Dur : 090 ms QT Int : 470 ms P-R-T Axes : 006 001 022 degrees QTc Int : 441 ms Sinus bradycardia Otherwise normal ECG Confirmed by KAILEE CAMPBELL, KEMI ([id number]), editor magazine SARKIS MARTIN ([id number]) on 04/26/2018 12:45:36 PM Referred By: George Pimentel Confirmed By:KEMI DUGAN MD
--- NOTE | 2018-04-24 15:58 | CT_ITS ---
STUDY: CT ABDOMEN AND PELVIS WITH CONTRAST REASON FOR EXAM: Male, 78 years old. Fall RADIATION DOSAGE (If Supplied By Facility): CTDIvol = ( 18.67 ) mGy, DLP = ( 972.46 ) mGycm TECHNIQUE: Transaxial images were obtained from the dome of the diaphragm to the symphysis pubis without oral contrast. 100ML ml of Isovue 300 contrast was administered. Sagittal and coronal images were reconstructed. Individualized dose optimization techniques were used for this CT. COMPARISON: 04/19/2018 FINDINGS: The visualized lung bases are clear. The visualized portions of the heart and pericardium are within normal limits. There are no calcified gallstones present. The liver is within normal limits. There are no suspicious hepatic lesions. The spleen is normal in size. The pancreas is within normal limits. The adrenal glands are within normal limits. There are stable bilateral subcentimeter nonobstructing renal collecting system stones. There are no ureteral stones. There is no hydronephrosis. There are stable bilateral renal cysts, some of which are complex and not fully characterized on this exam. There is a stable hiatal hernia. There is no bowel obstruction or inflammation. Again noted is gaseous distention of the colon. The appendix is not visualized, but there are no findings to suggest acute appendicitis. The aorta is normal in caliber. There is no abdominal or pelvic free air, free fluid, fluid collection or lymphadenopathy. There is a stable mild compression deformity of the L1 vertebral body. There is no evidence of acute fracture or dislocation in visualized osseous structures of the abdomen and pelvis. CT/Abdomen/Pelvis W IV Cont ONLY IMPRESSION: No acute traumatic findings in the abdomen or pelvis. Stable nonacute findings, as above. Electronically Signed: Robby Maguire, at 18:00 EST Tel , Service support ,
[2018-04-24 16:24] LABS: Absolute Lymphocyte Count 1.31 X10^3/ul (0.83-4.51); Absolute Neutrophil Count 3.8 X10^3/uL (2.0-7.7); Basophil# 0.03 X10^3/uL; Basophil% 0.5 % (0-1); Eosinophil# 0.18 X10^3/uL; Eosinophils% 3.1 % (0-5); Hematocrit 42.7 % (40-54); Hemoglobin 13.1 g/dl (13.0-16.5); Lymphocyte # 1.31 X10^3/ul (4.0); Lymphocyte % 22.5 % (19-41); Mean Corp Hgb Conc 30.7 g/gl (32-36); Mean Corpuscular Hgb 27.9 pg (27.0-32.0); Mean Platelet Vol. 11.4 fl (6.2-12.0); Monocyte# 0.49 X10^3/uL; Monocyte% 8.4 % (0-10); Neutrophil # 3.81 X10^3/uL (2.7-7.7); Neutrophil % 65.5 % (47-70); Platelet Count 155 K/mm3 (150-450); RBC Distribution Width CV 15.3 % (11.6-14.6); RBC Distribution Width SD 50.4 fl (35.1-43.9); Red Blood Count 4.69 M/mm3 (4.6-6.2); White Blood Count 5.8 K/mm3 (4.4-11.0)
[2018-04-24 16:25] LABS: POSITIVE COUNT NO; POSITIVE DIFFERENTIAL NO; POSITIVE MORPHOLOGY NO
[2018-04-24 16:50] LABS: Anion Gap 9 (5-15); BUN 15 mg/dL (7-18); BUN/Creat Ratio 11.3 RATIO (10-20); Calcium,Total 8.8 mg/dL (8.5-10.1); Chloride 106 mmol/L (98-107); Creatinine, Serum 1.33 mg/dL (0.70-1.30); EST Glomerular Filtration Rate 55 mL/min (>60); Est Glom Filt Rate - Afr Amer 67 mL/min (>60); Estimated Creatinine Clearance 40.64 ml/min; Glucose 96 mg/dL (74-106); Potassium 3.9 mmol/L (3.5-5.1); Sodium Level 143 mmol/L (136-145)
[2018-04-24 17:53] LABS: Mucous, Urine 0 SEEN /hpf (<or=2+); Red Blood Cells-Urine 0 SEEN /hpf (0-5)
[2018-04-24 17:58] LABS: Color, Urine Yellow (Yellow); Glucose, Dipstick Normal (Normal); Ketone-Dipstick Negative (Negative); Leukocyte Esterase-Dipstick 25 /ul (Negative); Nitrite-Dipstick Negative (Negative); Occult Blood-Urine Negative /ul (Negative); Protein-Dipstick Negative (Negative); Specific Gravity, Urine 1.015 (1.002-1.030); Urine Bilirubin Dipstick Negative (Negative); Urine Clarity Sl. Cloudy (Clear); Urine Urobilinogen 1 mg/dl (Normal)
[2018-04-24 18:03] VITALS: BP 119/77; PULSE 56; RESP 16; O2SAT 98
[2018-04-24 18:15] LABS: Bacteria RARE /hpf (None Seen); Squamous Epithelial Cells - UA 0-5 SEEN /hpf (0-5); White Blood Cells 5-10 SEEN /hpf (0-5)
--- NOTE | 2018-04-24 18:30 | ED.DCSUM_ITS ---
- ER Visit Summary Date of Service: 04/24/18 Chief Complaint: Frequent falls History of Present Illness: The patient is a 78 M who presents with dizziness. states he stands any falls predominately to the left. He has history of chronic dizziness. He is on Plavix. He does bruise easily. states he felt early this morning and this afternoon. She was unable to help him off the floor and required assistance from his sons. He denies headache. He denies neck pain. He denies paresthesia, anesthesia motors. He does complain of back pain and abdominal pain. He has not a good informant secondary to dementia. Review of systems remarkable for blurred vision secondary to macular degeneration, abdominal pain, back pain, abrasion, generalized weakness and bruising easily. Past medical history of dementia, CVA, coronary disease, type 2 diabetes, hypercholesterolemia, hypothyroidism and GERD. Recent diagnosis of nephrolithiasis. He is status post three-vessel coronary bypass surgery and recent stent placement. He also has history of colonic volvulus and tonsillectomy. Physical Examination: Vital signs noted and remarkable for a temperature 96.3. Head is atraumatic normocephalic. Pupils are equal round reactive. Extraocular muscles are intact. TMs are pearly white with landmarks noted. Nares patent with no drainage. Posterior pharynx without erythema or exudate. Uvula is midline. There is no dysphonia or dysphasia. Trachea is midline. There is no stridor with auscultation of the neck. There is no pain the patient cervical spine. Heart is regular without murmur, gallop or rub. S1 and S2 are normal. Lungs are clear to auscultation with good movement of air bilaterally. There is an abrasion noted left pectoral area. There is also an abrasion with ecchymosis left costal margin. There is significant abrasion and ecchymosis right scapular region and right flank region. There is no pain the patient the pelvis. Neuro exam is nonfocal. He is not oriented, which apparently is baseline. Test Results: CT of the abdomen pelvis with IV contrast to evaluate for splenic injury was negative. Furthermore there was no evidence of hepatic or renal contusion. No findings of intra-abdominal injury. CT of the head reveals small vessel disease with no acute hemorrhage or stroke. EKG sinus bradycardia rate of 53 with normal MI interval, QRS duration, QT interval and axis. This is unchanged from February 2016. CBC is normal. Basic medical panel reveals creatinine of 1.33. No laboratory tests have been obtained the last 24 months. Urinalysis unremarkable. Emergency Department Course and Treatment: CT of the head was obtained since he had 2 recent falls in with complaints of dizziness and falling to the left to evaluate for CVA. Onset is unknown. CT of the abdomen was obtained to evaluate for splenic injury. UA to assess for hematuria secondary to the flank contusion. CBC was obtained to assess for anemia white count was suggest infectious cause of his generalized weakness and falling as well as dizziness. Patient minimal panel was obtained since he will require CT with IV contrast to assess renal function. GFR was 55. Treatment Plan: Since patient cannot stand without falling and requires assistant county attorney of sons to come to the house to get him off the floor the hospitalist was paged for inpatient observation and further workup and PT eval Disposition: Medical surgical unit with telemetry Impression: 1. Multiple falls 2. Multiple abrasions contusion to the torso and right lower extremity 3. History of coronary disease 4. History of CVA 5. History of type 2 diabetes 6. History of hypercholesterolemia 7. History of hypothyroidism 7. Hypothermia 8. Renal insufficiency chronicity unknown This note was generated with [email or web address] dictation software. It may contain incorrect words, spelling, and punctuation that were not noted in review of the chart prior to signing ED Disposition - Plan for ED Patient: Chief Complaint: Fall Referrals: Daiana Andrew, TALIB-C [Primary Care Provider] -
--- NOTE | 2018-04-24 19:06 | PCM.HP.STD ---
Problem List (1) Atherosclerosis of [place] coronary artery of [place] heart without angina pectoris Status: Chronic Comment: MACIAS to LAD, aortocoronary left radial artery to obtuse marginal artery, SVG to PDA; (2) GERD (gastroesophageal reflux disease) Status: Chronic (3) History of angioplasty Status: Chronic Comment: Angioplasty and stenting to 70% stenosis in proximal LAD, angioplasty and stenting to proximal diagonal LAD at bifurcation, and atherectomy and stenting to 80% stenosis in mid first diagonal artery in April 2011. (4) S/P CABG x 3 Status: Chronic Comment: MACIAS to LAD, aortocoronary left radial artery to obtuse marginal artery, SVG to PDA (5) DM2 (diabetes mellitus, type 2) Status: Chronic (6) CKD (chronic kidney disease) stage 3, GFR 30-59 ml/min Status: Chronic (7) Dementia Status: Chronic (8) Mild intermittent asthma Status: Chronic (9) Nephrolithiasis Status: Chronic History of Present Illness Date of Admission: 04/24/18 Chief Complaint: Frequent falls, dizziness. The patient is a 78 year old M with past medical history as mentioned above presented to the emergency room because of frequent falls and dizziness. The patient is not a good informant because of history of dementia. Today, patient fell twice and he mentioned that before he fell, he was dizzy and lightheaded. His was with him and she could not help him to get up. His mentioned that he has been getting dizzy spells recently but not as bad as today. No reported syncope, presyncope or loss of consciousness. Patient denied chest pain, palpitation, nausea or vomiting. Patient denied headache, neck pain, blurred vision or slurred speech. He complains of right flank pain and apparently, he has left flank abrasion secondary to the fall. Also, he complained of right shoulder pain. He has a history of CAD status post CABG and stents and he has been on aspirin, Plavix and Zetia as well as ramipril. He had a history of type 2 diabetes mellitus, has been on Actos and his blood sugar has been under control, no recent hemoglobin A1c. He had a history of dementia with intermittent confusion and he has been on Aricept. He had a history of stage III chronic kidney disease, creatinine has been around 1.1-1.4 back in 2016, admission creatinine is 1.33 which seemed to be at baseline. In the emergency department, he was bradycardic, heart rate has been in the 50s, other vital signs are stable. His routine blood work was remarkable for creatinine of 1.33, otherwise normal. Urinalysis revealed no evidence of UTI. CT scan brain showed no acute findings. CT scan abdomen and pelvis with contrast done because of right flank abrasion and bruises and there was no evidence of acute intra-abdominal pathology, revealed bilateral small nonobstructive kidney stones. His EKG revealed sinus bradycardia, otherwise normal, MS interval is normal, no evidence of cardiac arrhythmias or heart block. He is being admitted for frequent falls, physical debility, dizziness and mild dehydration and these probably would need placement [facility]. Past Medical History Past Medical History (Chronic Problems): Chronic Problems (Last Updated 02/24/18 @ 15:05 by MADIHA Solano) History of CVA (cerebrovascular accident) (Chronic) Pure hypercholesterolemia (Chronic) Atherosclerosis of [place] coronary artery of [place] heart without angina pectoris (Chronic) MACIAS to LAD, aortocoronary left radial artery to obtuse marginal artery, SVG to PDA; GERD (gastroesophageal reflux disease) (Chronic) History of angioplasty (Chronic 11/06/89) Angioplasty and stenting to 70% stenosis in proximal LAD, angioplasty and stenting to proximal diagonal LAD at bifurcation, and atherectomy and stenting to 80% stenosis in mid first diagonal artery in April 2011. 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) MACIAS to LAD, aortocoronary left radial artery to obtuse marginal artery, SVG to PDA H/O percutaneous transluminal coronary angioplasty (Chronic ~05/13/11) stent to diagonal 1 History of cardiac catheterization (Chronic ~03/2002) 03/28,06/28 DM2 (diabetes mellitus, type 2) (Chronic) CKD (chronic kidney disease) stage 3, GFR 30-59 ml/min (Chronic) Dementia (Chronic) Mild intermittent asthma (Chronic) Nephrolithiasis (Chronic) Medical History: Medical History (Last Updated 02/24/18 @ 15:05 by MATTHIEU SolanoC) Pure hypercholesterolemia (Chronic) E78.00 Atherosclerosis of [place] coronary artery of [place] heart without angina pectoris (Chronic) I25.10 MACIAS to LAD, aortocoronary left radial artery to obtuse marginal artery, SVG to PDA; GERD (gastroesophageal reflux disease) (Chronic) K21.9 DM2 (diabetes mellitus, type 2) (Chronic) E11.9 CKD (chronic kidney disease) stage 3, GFR 30-59 ml/min (Chronic) Dementia (Chronic) F03.90 Mild intermittent asthma (Chronic) J45.20 Nephrolithiasis (Chronic) History of Gerard's esophagus Z87.19 History of asthma Z87.09 History of irritable bowel syndrome Z87.19 Hypothyroidism E03.9 Allergies iodine Allergy (Verified 02/24/18 13:39) Hives Penicillins Adverse Reaction (Verified 02/24/18 13:39) Rash Home Medications: Ambulatory Orders Medication Instructions Recorded Aspirin E.C. [Ecotrin] 81 mg PO DAILY@0800 09/15/13 Escitalopram Oxalate [Lexapro] 10 mg PO DAILY 09/15/13 Pioglitazone [Actos] 30 mg PO DAILY 09/15/13 Donepezil HCl [Aricept] 10 mg PO QHS 02/27/16 Oxybutynin [Ditropan] 15 mg PO DAILY 02/27/16 ezetimibe 10 mg tablet 10 mg PO DAILY #90 tab 06/18/17 ramipril 5 mg capsule 5 mg PO DAILY #90 cap 07/28/17 docusate sodium 100 mg capsule 100 mg PO DAILY PRN cap 02/24/18 clopidogrel 75 mg tablet 75 mg PO DAILY #90 tab 03/22/18 Surgical History: Surgical History (Last Updated 02/24/18 @ 14:14 by Gayle Humphrey) History of angioplasty (Chronic) Onset Date: 11/06/89 Z98.62 Angioplasty and stenting to 70% stenosis in proximal LAD, angioplasty and stenting to proximal diagonal LAD at bifurcation, and atherectomy and stenting to 80% stenosis in mid first diagonal artery in April 2011. S/P CABG x 3 (Chronic) Onset Date: 05/09/02 Z95.1 MACIAS to LAD, aortocoronary left radial artery to obtuse marginal artery, SVG to PDA H/O percutaneous transluminal coronary angioplasty (Chronic) Onset Date: ~05/13/11 Z98.61 stent to diagonal 1 History of cardiac catheterization (Chronic) Onset Date: ~03/2002 Z98.890 03/28,03/04 History of colon resection Onset Date: 09/15/13 Z90.49 History of hemorrhoidectomy Z98.890 History of right inguinal hernia repair Z98.890, Z87.19 History of squamous cell carcinoma excision Onset Date: 10/23/11 Z98.890, Z85.9 left sabianism with rhomboid transposition skin flap reconstruction History of tonsillectomy Z90.89 History of ureter stent Onset Date: ~07/2008 Surgical History: coronary bypass surgery, - - hiatal hernia Psychiatric History: No pertinent psych hx Lives: Spouse/ Significant Other Smoking Status: Former smoker Alcohol: None Drugs: None - *Family History Maternal Family History: Family History (Last Updated 02/24/18 @ 13:42 by Gayle No) Father CVA (cerebral vascular accident) Brother Heart disease History Items: - - No stroke Paternal Family History: Family History (Last Updated 02/24/18 @ 13:42 by Gayle Nolt) Father CVA (cerebral vascular accident) Brother Heart disease History Items: - - No stroke Review of Systems Constitutional: Reports: Weakness. Denies: Anorexia, Chills, Fever Eyes: Denies: Blurred vision, Double vision, Drainage, Redness HEENT: Denies: Difficulty Hearing, Ear Pain, Eye Pain, Nasal Congestion, Sore Throat Cardiovascular: Reports: Light Headedness. Denies: Chest Pain, Chest Pressure, Heaviness, Palpitations, Syncope Respiratory: Denies: Cough, Pleuritic Pain, Shortness of Breath, Sputum production, Wheezing Gastrointestinal: Denies: Abdominal Pain, Constipation, Diarrhea, Nausea, Vomiting Genitourinary: Denies: Dysuria, Frequency, Hematuria Musculoskeletal: Reports: Joint Pain - Reported right shoulder pain.. Denies: Arm Pain, Back Pain, Foot Pain Skin: Denies: Dryness, Rash Neurological: Denies: Balance problems, Blurred vision, Double vision, Change in Speech, Slurred speech, Confusion, Headaches, Incoordination, Numbness Psychiatric: Denies: Anxiety, Depression Endocrine: Denies: Change in Body Habitus, Polydipsia VTE Information - Inpt Only VTE Present on Admission: No VTE Mechan Device Prophylaxis: None VTE Pharm Prophylaxis ordered?: Yes - Physical Exam General: Alert, Oriented x3, Cooperative, No apparent distress HEENT: Atraumatic, PERRLA, EOMI, Normocephalic Oral: Moist Mucosa, No Gingival or Mucosal Lesions/ Ulcerations Neck: Supple, No JVD, Negative Carotid Bruits, Trachea Midline, Thyroid Normal Size and Texture Lungs: Clear to auscultation, No rhonchi, No wheeze, No rales, Diminished Cardiovascular: Regular rate, Regular Rhythm, Normal S1, Normal S2, PMI Normal Abdomen: Bowel Sounds Present, Soft, Non Tender, Non-Distended, No Hepato-splenomegaly Extremities: No clubbing, No cyanosis Skin: No rashes, - - Right flank abrasion. Lymphatic: No Cervical, Supraclavicular, or Inguinal Adenopathy Neurological: Cranial nerves II-XII grossly intact, Motor Exam 5/5 strength throughout Psych/Mental Status: Normal Affect, Appropriate Vital Signs Temp Pulse Resp BP Pulse Ox 96.3 F L 56 L 16 119/77 98 04/24/18 15:43 04/24/18 18:03 04/24/18 18:03 04/24/18 18:03 04/24/18 18:03 Oxygen Delivery Method Room Air Weight: 187 lb Body Mass Index (BMI) 30.2 Finger Stick Blood Glucose 103 Laboratory Tests Past 24 Hrs 04/24/18 04/24/18 04/24/18 16:15 16:15 17:46 WBC 5.8 RBC 4.69 Hgb 13.1 Hct 42.7 MCV 91.0 MCH 27.9 MCHC 30.7 L RDW 15.3 H RDW Differential 50.4 H Plt Count 155 MPV 11.4 Immature Gran % (Auto) 0.000 Neut % (Auto) 65.5 Lymph % (Auto) 22.5 [place] % (Auto) 8.4 Eos % (Auto) 3.1 Baso % (Auto) 0.5 Absolute Neuts (auto) 3.8 Absolute Lymphs (auto) 1.31 Total Counted Not Reportable Sodium 143 Potassium 3.9 Chloride 106 Carbon Dioxide 28.0 Anion Gap 9 BUN 15 Creatinine 1.33 H Estim Creat Clear Calc 40.64 Est GFR (MDRD) Af Amer 67 Est GFR (MDRD) Non-Af 55 L BUN/Creatinine Ratio 11.3 Glucose 96 Calcium 8.8 Urine Color Yellow Urine Clarity Sl. Cloudy Urine pH 6.0 Ur Specific [place] 1.015 Urine Protein Negative Urine Glucose (UA) Normal Urine Ketones Negative Urine Occult Blood Negative Urine Nitrite Negative Urine Bilirubin Negative Urine Urobilinogen 1 H Ur Leukocyte Esterase 25 H Urine RBC 0 SEEN Urine WBC 5-10 SEEN Ur Squamous Epith Cells 0-5 SEEN Urine Bacteria RARE Urine Mucus 0 SEEN Clinical Impression(s) from Imaging Studies Brain CT 04/24/18 15:57 IMPRESSION: 1. No acute process. 2. Chronic left basal ganglia lacunar infarct. 3. Microvascular ischemic changes. Atrophy. Electronically Signed: Matilde Espinoza MD at 18:01 EST Tel , Service support , Abdomen/Pelvis CT 04/24/18 15:58 IMPRESSION: No acute traumatic findings in the abdomen or pelvis. Stable nonacute findings, as above. Electronically Signed: Robby Maguire, at 18:00 EST Tel , Service support , Assessment/Plan This is a 78 years old male patient presented to the emergency room because of frequent falls and dizziness and he is being admitted for physical debility, functional decline, dizziness probably due to bradycardia as well as mild dehydration. #1 frequent falls/physical debility/functional decline: Probably multifactorial secondary to age, multiple medical problems in addition to probable mild dehydration and bradycardia. EKG revealed sinus bradycardia, no evidence of cardiac arrhythmias or heart block. CT scan brain without acute findings. Apart from mild bradycardia, other vital signs are stable. Patient is not on beta-blockers. Patient complained of right shoulder pain. Plan: Admit to [facility] floor for observation, cardiac monitoring, gentle IV fluids for hydration, repeat EKG tomorrow morning, troponin x1, orthostatic vitals, repeat CBC and BMP tomorrow morning, x-ray right shoulder, PT OT evaluation and treatment, patient probably will need [facility] to [facility]. #2 dizziness/mild dehydration: Apart from mild bradycardia, EKG was unremarkable. Apparently, patient has been having issues with dizziness not acutely. Creatinine is 1.33, he had a history of stage III chronic kidney disease, most recent creatinine was 1.1. Plan: Gentle IV fluids for hydration, repeat EKG tomorrow morning, input output chart, repeat BMP tomorrow morning. #3 CAD status post CABG and stents: Patient denies any chest pain, EKG reviewed, plan to continue aspirin, Plavix, continue ramipril and Zetia, repeat EKG tomorrow morning. #4 type 2 diabetes mellitus: ADA diet, Accu-Cheks, insulin scale, continue Actos, hemoglobin A1c. #5 hyperlipidemia: Continue Zetia. #6 stage III chronic kidney disease: Baseline creatinine has been around 1.1-1.4 mg/dL, admission creatinine 1.33. Clinically, patient is dehydrated. Plan for gentle IV fluid hydration, repeat BMP tomorrow morning. #7 dementia: Continue Aricept, supportive treatment. #8 DVT prophylaxis: Subcu heparin. This note was generated with [employer] dictation software. It may contain incorrect words, spelling, and punctuation that were not noted in checking the note before signing. Code Visit OBSV E&M: 39767 Initial observation care L3
--- NOTE | 2018-04-24 19:13 | HP.PCM_ITS ---
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 (4) S/P CABG x 3 Status: Chronic Comment: MACIAS to LAD, aortocoronary left radial artery to obtuse marginal artery, SVG to PDA (5) DM2 (diabetes mellitus, type 2) Status: Chronic (6) CKD (chronic kidney disease) stage 3, GFR 30-59 ml/min Status: Chronic (7) Dementia Status: Chronic (8) Mild intermittent asthma Status: Chronic (9) Nephrolithiasis Status: Chronic History of Present Illness Date of Admission: 04/24/18 Chief Complaint: Frequent falls, dizziness. The patient is a 78 year old M with past medical history as mentioned above presented to the emergency room because of frequent falls and dizziness. The patient is not a good informant because of history of dementia. Today, patient fell twice and he mentioned that before he fell, he was dizzy and lightheaded. His was with him and she could not help him to get up. His mentioned that he has been getting dizzy spells recently but not as bad as today. No reported syncope, presyncope or loss of consciousness. Patient denied chest pain, palpitation, nausea or vomiting. Patient denied headache, neck pain, blurred vision or slurred speech. He complains of right flank pain and apparently, he has left flank abrasion secondary to the fall. Also, he complained of right shoulder pain. He has a history of CAD status post CABG and stents and he has been on aspirin, Plavix and Zetia as well as ramipril. He had a history of type 2 diabetes mellitus, has been on Actos and his blood sugar has been under control, no recent hemoglobin A1c. He had a history of dementia with intermittent confusion and he has been on Aricept. He had a history of stage III chronic kidney disease, creatinine has been around 1.1-1.4 back in 2016, admission creatinine is 1.33 which seemed to be at baseline. In the emergency department, he was bradycardic, heart rate has been in the 50s, other vital signs are stable. His routine blood work was remarkable for creatinine of 1.33, otherwise normal. Urinalysis revealed no evidence of UTI. CT scan brain showed no acute findings. CT scan abdomen and pelvis with contrast done because of right flank abrasion and bruises and there was no evidence of acute intra- abdominal pathology, revealed bilateral small nonobstructive kidney stones. His EKG revealed sinus bradycardia, otherwise normal, NV interval is normal, no evidence of cardiac arrhythmias or heart block. He is being admitted for frequent falls, physical debility, dizziness and mild dehydration and these probably would need placement to detention facility. 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) MACIAS to LAD, aortocoronary left radial artery to obtuse marginal artery, SVG to PDA H/O percutaneous transluminal coronary angioplasty (Chronic ~05/13/11) stent to diagonal 1 History of cardiac catheterization (Chronic ~03/2002) 03/28,06/28 DM2 (diabetes mellitus, type 2) (Chronic) CKD (chronic kidney disease) stage 3, GFR 30-59 ml/min (Chronic) Dementia (Chronic) Mild intermittent asthma (Chronic) Nephrolithiasis (Chronic) Medical History: Medical History (Last Updated 02/24/18 @ 15:05 by MATTHIEU SolanoC) Pure hypercholesterolemia (Chronic) E78.00 Atherosclerosis of circle coronary artery of 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 angina pectoris (Chronic) I25.10 MACIAS to LAD, aortocoronary left radial artery to obtuse marginal artery, SVG to PDA; GERD (gastroesophageal reflux disease) (Chronic) K21.9 DM2 (diabetes mellitus, type 2) (Chronic) E11.9 CKD (chronic kidney disease) stage 3, GFR 30-59 ml/min (Chronic) Dementia (Chronic) F03.90 Mild intermittent asthma (Chronic) J45.20 Nephrolithiasis (Chronic) History of Gerard's esophagus Z87.19 History of asthma Z87.09 History of irritable bowel syndrome Z87.19 Hypothyroidism E03.9 Allergies iodine Allergy (Verified 02/24/18 13:39) Hives Penicillins Adverse Reaction (Verified 02/24/18 13:39) Rash Home Medications: Ambulatory Orders Medication Instructions Recorded Aspirin E.C. [Ecotrin] 81 mg PO DAILY@0800 09/15/13 Escitalopram Oxalate [Lexapro] 10 mg PO DAILY 09/15/13 Pioglitazone [Actos] 30 mg PO DAILY 09/15/13 Donepezil HCl [Aricept] 10 mg PO QHS 02/27/16 Oxybutynin [Ditropan] 15 mg PO DAILY 02/27/16 ezetimibe 10 mg tablet 10 mg PO DAILY #90 tab 06/18/17 ramipril 5 mg capsule 5 mg PO DAILY #90 cap 07/28/17 docusate sodium 100 mg capsule 100 mg PO DAILY PRN cap 02/24/18 clopidogrel 75 mg tablet 75 mg PO DAILY #90 tab 03/22/18 Surgical History: Surgical History (Last Updated 02/24/18 @ 14:14 by Gayle Humphrey) History of angioplasty (Chronic) Onset Date: 11/06/89 Z98.62 Angioplasty and stenting to 70% stenosis in proximal LAD, angioplasty and stenting to proximal diagonal LAD at bifurcation, and atherectomy and stenting to 80% stenosis in mid first diagonal artery in April 2011. S/P CABG x 3 (Chronic) Onset Date: 05/09/02 Z95.1 MACIAS to LAD, aortocoronary left radial artery to obtuse marginal artery, SVG to PDA H/O percutaneous transluminal coronary angioplasty (Chronic) Onset Date: ~05/13/11 Z98.61 stent to diagonal 1 History of cardiac catheterization (Chronic) Onset Date: ~03/2002 Z98.890 03/28,03/04 History of colon resection Onset Date: 09/15/13 Z90.49 History of hemorrhoidectomy Z98.890 History of right inguinal hernia repair Z98.890, Z87.19 History of squamous cell carcinoma excision Onset Date: 10/23/11 Z98.890, Z85.9 left restorationism with rhomboid transposition skin flap reconstruction History of tonsillectomy Z90.89 History of ureter stent Onset Date: ~07/2008 Surgical History: coronary bypass surgery, - - hiatal hernia Psychiatric History: No pertinent psych hx Lives: Spouse/ Significant Other Smoking Status: Former smoker Alcohol: None Drugs: None - *Family History Maternal Family History: Family History (Last Updated 02/24/18 @ 13:42 by Gayle No) Father CVA (cerebral vascular accident) Brother Heart disease History Items: - - No stroke Paternal Family History: Family History (Last Updated 02/24/18 @ 13:42 by Gayle Nolt) Father CVA (cerebral vascular accident) Brother Heart disease History Items: - - No stroke Review of Systems Constitutional: Reports: Weakness. Denies: Anorexia, Chills, Fever Eyes: Denies: Blurred vision, Double vision, Drainage, Redness HEENT: Denies: Difficulty Hearing, Ear Pain, Eye Pain, Nasal Congestion, Sore Throat Cardiovascular: Reports: Light Headedness. Denies: Chest Pain, Chest Pressure, Heaviness, Palpitations, Syncope Respiratory: Denies: Cough, Pleuritic Pain, Shortness of Breath, Sputum production, Wheezing Gastrointestinal: Denies: Abdominal Pain, Constipation, Diarrhea, Nausea, Vomiting Genitourinary: Denies: Dysuria, Frequency, Hematuria Musculoskeletal: Reports: Joint Pain - Reported right shoulder pain.. Denies: Arm Pain, Back Pain, Foot Pain Skin: Denies: Dryness, Rash Neurological: Denies: Balance problems, Blurred vision, Double vision, Change in Speech, Slurred speech, Confusion, Headaches, Incoordination, Numbness Psychiatric: Denies: Anxiety, Depression Endocrine: Denies: Change in Body Habitus, Polydipsia VTE Information - Inpt Only VTE Present on Admission: No VTE Mechan Device Prophylaxis: None VTE Pharm Prophylaxis ordered?: Yes - Physical Exam General: Alert, Oriented x3, Cooperative, No apparent distress HEENT: Atraumatic, PERRLA, EOMI, Normocephalic Oral: Moist Mucosa, No Gingival or Mucosal Lesions/ Ulcerations Neck: Supple, No JVD, Negative Carotid Bruits, Trachea Midline, Thyroid Normal Size and Texture Lungs: Clear to auscultation, No rhonchi, No wheeze, No rales, Diminished Cardiovascular: Regular rate, Regular Rhythm, Normal S1, Normal S2, PMI Normal Abdomen: Bowel Sounds Present, Soft, Non Tender, Non-Distended, No Hepato- splenomegaly Extremities: No clubbing, No cyanosis Skin: No rashes, - - Right flank abrasion. Lymphatic: No Cervical, Supraclavicular, or Inguinal Adenopathy Neurological: Cranial nerves II-XII grossly intact, Motor Exam 5/5 strength throughout Psych/Mental Status: Normal Affect, Appropriate Vital Signs Temp Pulse Resp BP Pulse Ox 96.3 F L 56 L 16 119/77 98 04/24/18 15:43 04/24/18 18:03 04/24/18 18:03 04/24/18 18:03 04/24/18 18:03 Oxygen Delivery Method Room Air Weight: 187 lb Body Mass Index (BMI) 30.2 Finger Stick Blood Glucose 103 Laboratory Tests Past 24 Hrs 04/24/18 04/24/18 04/24/18 16:15 16:15 17:46 WBC 5.8 RBC 4.69 Hgb 13.1 Hct 42.7 MCV 91.0 MCH 27.9 MCHC 30.7 L RDW 15.3 H RDW Differential 50.4 H Plt Count 155 MPV 11.4 Immature Gran % (Auto) 0.000 Neut % (Auto) 65.5 Lymph % (Auto) 22.5 [place] % (Auto) 8.4 Eos % (Auto) 3.1 Baso % (Auto) 0.5 Absolute Neuts (auto) 3.8 Absolute Lymphs (auto) 1.31 Total Counted Not Reportable Sodium 143 Potassium 3.9 Chloride 106 Carbon Dioxide 28.0 Anion Gap 9 BUN 15 Creatinine 1.33 H Estim Creat Clear Calc 40.64 Est GFR (MDRD) Af Amer 67 Est GFR (MDRD) Non-Af 55 L BUN/Creatinine Ratio 11.3 Glucose 96 Calcium 8.8 Urine Color Yellow Urine Clarity Sl. Cloudy Urine pH 6.0 Ur Specific [place] 1.015 Urine Protein Negative Urine Glucose (UA) Normal Urine Ketones Negative Urine Occult Blood Negative Urine Nitrite Negative Urine Bilirubin Negative Urine Urobilinogen 1 H Ur Leukocyte Esterase 25 H Urine RBC 0 SEEN Urine WBC 5-10 SEEN Ur Squamous Epith Cells 0-5 SEEN Urine Bacteria RARE Urine Mucus 0 SEEN Clinical Impression(s) from Imaging Studies Brain CT 04/24/18 15:57 IMPRESSION: 1. No acute process. 2. Chronic left basal ganglia lacunar infarct. 3. Microvascular ischemic changes. Atrophy. Electronically Signed: Matilde Espinoza MD at 18:01 EST Tel , Service support , Abdomen/Pelvis CT 04/24/18 15:58 IMPRESSION: No acute traumatic findings in the abdomen or pelvis. Stable nonacute findings, as above. Electronically Signed: Robby Maguire, at 18:00 EST Tel , Service support , Assessment/Plan This is a 78 years old male patient presented to the emergency room because of frequent falls and dizziness and he is being admitted for physical debility, functional decline, dizziness probably due to bradycardia as well as mild dehydration. #1 frequent falls/physical debility/functional decline: Probably multifactorial secondary to age, multiple medical problems in addition to probable mild dehydration and bradycardia. EKG revealed sinus bradycardia, no evidence of cardiac arrhythmias or heart block. CT scan brain without acute findings. Apart from mild bradycardia, other vital signs are stable. Patient is not on beta-blockers. Patient complained of right shoulder pain. Plan: Admit to [facility] floor for observation, cardiac monitoring, gentle IV fluids for hydration, repeat EKG tomorrow morning, troponin x1, orthostatic vitals, repeat CBC and BMP tomorrow morning, x-ray right shoulder, PT OT evaluation and treatment, patient probably will need placement to detention facility. #2 dizziness/mild dehydration: Apart from mild bradycardia, EKG was unremarkable. Apparently, patient has been having issues with dizziness not acutely. Creatinine is 1.33, he had a history of stage III chronic kidney disease, most recent creatinine was 1.1. Plan: Gentle IV fluids for hydration, repeat EKG tomorrow morning, input output chart, repeat BMP tomorrow morning. #3 CAD status post CABG and stents: Patient denies any chest pain, EKG reviewed, plan to continue aspirin, Plavix, continue ramipril and Zetia, repeat EKG tomorrow morning. #4 type 2 diabetes mellitus: ADA diet, Accu-Cheks, insulin scale, continue Actos, hemoglobin A1c. #5 hyperlipidemia: Continue Zetia. #6 stage III chronic kidney disease: Baseline creatinine has been around 1.1-1.4 mg/dL, admission creatinine 1.33. Clinically, patient is dehydrated. Plan for gentle IV fluid hydration, repeat BMP tomorrow morning. #7 dementia: Continue Aricept, supportive treatment. #8 DVT prophylaxis: Subcu heparin. This note was generated with [employer] dictation software. It may contain incorrect words, spelling, and punctuation that were not noted in checking the note before signing. Code Visit OBSV E&M: 11652 Initial observation care L3
[2018-04-24 19:59] VITALS: BMI 27.3
--- NOTE | 2018-04-24 19:59 | RAD_ITS ---
STUDY: X-RAY - RIGHT SHOULDER REASON FOR EXAM: Male, 78 years old. Right-sided shoulder pain. TECHNIQUE: 2 view(s) of the shoulder. COMPARISON: None. FINDINGS: There is mild degenerative arthrosis of the glenohumeral articulation. Normal acromioclavicular joint. Normal acromion. There is demineralization of the humerus and visualized osseous structures. The soft tissue structures are unremarkable. There is no demonstrated fracture. There are prominent bronchovascular markings in the right lung. RAD/Shoulder min 2 Views IMPRESSION: 1. Osteoporosis. 2. No definite evidence for acute fracture. 3. Degenerative arthropathy. Electronically Signed: Judit Sue MD at 5:30 EST , Service support ,
[2018-04-24 20:29] VITALS: BP 148/68; PULSE 61; RESP 18; TEMP 36.6; O2SAT 100
[2018-04-24 21:05] LABS: Thyroid Stim Hormone (TSH) 3.64 uIU/mL (0.358-3.74)
[2018-04-24] MEDS: 0.9% Normal Saline 1,000 ML 75 ML IV (21:05)
[2018-04-24 21:07] VITALS: PULSE 66
[2018-04-24 21:16] LABS: Hemoglobin A1c 6.2 % (4.2-6.3)
[2018-04-24] MEDS: Heparin Injection (Vial) 5,000 UNIT/ML VIAL 5000 UNIT SC (22:33)
[2018-04-24] MEDS: Donepezil HCl 10 MG Tablet PO (22:33)
[2018-04-24] MEDS: 0.9% NaCl Peripheral Flush Adult/Peds IV (22:33)
[2018-04-24 22:36] LABS: Bedside Glucose 95 mg/dL (70-110)
[2018-04-25] VITALS (11 sets, daily range): BP systolic 93–139; BP diastolic 59–80; PULSE 53–80; RESP 16–18; TEMP 36.6–37.1; O2SAT 94–100
--- NOTE | 2018-04-25 05:55 | EKG12_ITS ---
Test Reason : AM EKG Blood Pressure : / mmHG Vent. Rate : 061 BPM Atrial Rate : 061 BPM P-R Int : 152 ms QRS Dur : 090 ms QT Int : 454 ms P-R-T Axes : 043 024 054 degrees QTc Int : 457 ms Normal sinus rhythm Normal ECG Confirmed by KAILEE CAMPBELL, KEMI ([id number]), supervising editor trailer SAKRIS MRATIN ([id number]) on 04/28/2018 3:08:36 PM Referred By: George Pimentel Confirmed By:KEMI DUGAN MD
[2018-04-25] MEDS: Heparin Injection (Vial) 5,000 UNIT/ML VIAL 5000 UNIT SC ×3 (06:27→21:49)
[2018-04-25 06:37] LABS: Bedside Glucose 96 mg/dL (70-110)
[2018-04-25 06:39] LABS: Absolute Lymphocyte Count 1.57 X10^3/ul (0.83-4.51); Absolute Neutrophil Count 2.6 X10^3/uL (2.0-7.7); Basophil# 0.02 X10^3/uL; Basophil% 0.4 % (0-1); Eosinophil# 0.16 X10^3/uL; Eosinophils% 3.3 % (0-5); Hematocrit 35.4 % (40-54); Hemoglobin 10.9 g/dl (13.0-16.5); Lymphocyte # 1.57 X10^3/ul (4.0); Lymphocyte % 32.6 % (19-41); Mean Corp Hgb Conc 30.8 g/gl (32-36); Mean Corpuscular Hgb 28.2 pg (27.0-32.0); Mean Corpuscular Volume 91.5 fL (80-94); Mean Platelet Vol. 11.7 fl (6.2-12.0); Monocyte# 0.49 X10^3/uL; Monocyte% 10.2 % (0-10); Neutrophil # 2.58 X10^3/uL (2.7-7.7); Neutrophil % 53.5 % (47-70); Platelet Count 138 K/mm3 (150-450); RBC Distribution Width CV 14.9 % (11.6-14.6); RBC Distribution Width SD 48.6 fl (35.1-43.9); Red Blood Count 3.87 M/mm3 (4.6-6.2); White Blood Count 4.8 K/mm3 (4.4-11.0)
[2018-04-25 06:48] LABS: POSITIVE COUNT NO; POSITIVE DIFFERENTIAL NO; POSITIVE MORPHOLOGY NO
[2018-04-25 07:08] LABS: Anion Gap 6 (5-15); BUN 17 mg/dL (7-18); BUN/Creat Ratio 14.2 RATIO (10-20); Calcium,Total 7.7 mg/dL (8.5-10.1); Chloride 109 mmol/L (98-107); EST Glomerular Filtration Rate 62 mL/min (>60); Est Glom Filt Rate - Afr Amer 75 mL/min (>60); Estimated Creatinine Clearance 48.29 ml/min; Glucose 105 mg/dL (74-106); Potassium 3.7 mmol/L (3.5-5.1); Sodium Level 141 mmol/L (136-145)
[2018-04-25] MEDS: Ezetimibe 10 MG Tablet PO (09:18)
[2018-04-25] MEDS: Pioglitazone Hydrochloride 30 MG Tablet PO (09:18)
[2018-04-25] MEDS: Escitalopram Oxalate 10 MG Tablet PO (09:18)
[2018-04-25] MEDS: Clopidogrel Bisulfate 75 MG Tablet PO (09:18)
[2018-04-25] MEDS: Aspirin E.C. 81 MG Tablet PO (09:19)
[2018-04-25] MEDS: 0.9% Normal Saline 1,000 ML 75 ML IV (09:19)
[2018-04-25] MEDS: Ramipril 5 MG Capsule PO (09:19)
[2018-04-25] MEDS: Tolterodine Tartrate 2 MG CAP.SA PO (09:19)
[2018-04-25] MEDS: Glucerna Shake 120 ML LIQUID PO ×4 (09:19→21:48)
--- NOTE | 2018-04-25 11:39 | PCM.PN.HOSP ---
Subjective: Doing well, states that he still gets dizzy when he gets up. No shortness of breath or chest pain. Denies any upper extremity or lower extremity weakness. Vitals/I&O's: Vital Signs Temp Pulse Resp BP Pulse Ox 98.8 F 53 L 18 112/59 L 99 04/25/18 09:20 04/25/18 09:20 04/25/18 09:20 04/25/18 09:20 04/25/18 09:20 Oxygen Delivery Method Room Air Weight: 179 lb 10.828 oz Body Mass Index (BMI) 27.3 Finger Stick Blood Glucose 103 Orthostatic Vital Signs Start: 04/25/18 02:34 Freq: q24h Status: Active Protocol: Activity Type Activity Date Activity User E-Sign Co-Sign Detail Recorded Client Recorded Date Recorded By Document 04/25/18 02:15 [facility] [id number] 04/25/18 02:36 [facility] 04/25/18 02:15 Orthostatic Vitals Standing -Blood Pressure (90/60-120/80) 93/78 -Extremity Use Right Arm -Pulse Rate (60-100) 72 Sitting -Blood Pressure (90/60-120/80) 93/80 -Extremity Use Right Arm -Pulse Rate (60-100) 71 Lying -Blood Pressure (90/60-120/80) 124/76 H -Extremity Use Right Arm -Pulse Rate (60-100) 80 Intake and Output for Last 24 Hours 04/23/18 04/24/18 04/25/18 23:59 23:59 23:59 Intake Total 923 / 923 Balance 923 / 923 General: Alert, Oriented x3, Cooperative, No apparent distress HEENT: Atraumatic, PERRLA, EOMI, Normocephalic Oral: Moist Mucosa Neck: Supple, No JVD Lungs: Clear to auscultation, Normal air movement, No rhonchi, No wheeze, No rales Cardiovascular: Regular rate, Regular Rhythm, Normal S1, Normal S2, No murmurs Abdomen: Soft, Non Tender, Non-Distended, No Hepato-splenomegaly Extremities: No edema, Capillary Refill Less than 3 Seconds Skin: No rashes, - - Right flank abrasion clean does not appear infected Neurological: Motor Exam 5/5 strength throughout, Sensory exam intact to light touch and pain Psych/Mental Status: Normal Affect, Appropriate Laboratory Results 04/24/18 16:15: WBC 5.8, RBC 4.69, Hgb 13.1, Hct 42.7, MCV 91.0, MCH 27.9, MCHC 30.7 L, RDW 15.3 H, RDW Differential 50.4 H, Plt Count 155, MPV 11.4, Immature Gran % (Auto) 0.000, Neut % (Auto) 65.5, Lymph % (Auto) 22.5, [place] % (Auto) 8.4, Eos % (Auto) 3.1, Baso % (Auto) 0.5, Absolute Neuts (auto) 3.8, Absolute Lymphs (auto) 1.31, Total Counted Not Reportable 04/24/18 16:15: Sodium 143, Potassium 3.9, Chloride 106, Carbon Dioxide 28.0, Anion Gap 9, BUN 15, Creatinine 1.33 H, Estim Creat Clear Calc 40.64, Est GFR (MDRD) Af Amer 67, Est GFR (MDRD) Non-Af 55 L, BUN/Creatinine Ratio 11.3, Glucose 96, Calcium 8.8 04/24/18 16:15: Hemoglobin A1c 6.2 04/24/18 16:15: TSH 3.64 04/24/18 17:46: Urine Color Yellow, Urine Clarity Sl. Cloudy, Urine pH 6.0, Ur Specific [place] 1.015, Urine Protein Negative, Urine Glucose (UA) Normal, Urine Ketones Negative, Urine Occult Blood Negative, Urine Nitrite Negative, Urine Bilirubin Negative, Urine Urobilinogen 1 H, Ur Leukocyte Esterase 25 H, Urine RBC 0 SEEN, Urine WBC 5-10 SEEN, Ur Squamous Epith Cells 0-5 SEEN, Urine Bacteria RARE, Urine Mucus 0 SEEN 04/24/18 22:23: POC Glucose 95 04/25/18 05:55: WBC 4.8, RBC 3.87 L, Hgb 10.9 L, Hct 35.4 L, MCV 91.5, MCH 28.2, MCHC 30.8 L, RDW 14.9 H, RDW Differential 48.6 H, Plt Count 138 L, MPV 11.7, Immature Gran % (Auto) 0.000, Neut % (Auto) 53.5, Lymph % (Auto) 32.6, [place] % (Auto) 10.2 H, Eos % (Auto) 3.3, Baso % (Auto) 0.4, Absolute Neuts (auto) 2.6, Absolute Lymphs (auto) 1.57, Total Counted Not Reportable 04/25/18 05:55: Sodium 141, Potassium 3.7, Chloride 109 H, Carbon Dioxide 26.0, Anion Gap 6, BUN 17, Creatinine 1.20, Estim Creat Clear Calc 48.29, Est GFR (MDRD) Af Amer 75, Est GFR (MDRD) Non-Af 62, BUN/Creatinine Ratio 14.2, Glucose 105, Calcium 7.7 L 04/25/18 06:21: POC Glucose 96 Current Medications Aspirin (Ecotrin) 81 mg PO DAILY@0800 [facility] Last Admin: 04/25/18 09:19 Dose: 81 mg Clopidogrel Bisulfate (Plavix) 75 mg PO DAILY [facility] Last Admin: 04/25/18 09:18 Dose: 75 mg Docusate Sodium (Colace) 100 mg PO DAILY PRN PRN Reason: Constipation Donepezil HCl (Aricept) 10 mg PO QHS [facility] Last Admin: 04/24/18 22:33 Dose: 10 mg Ezetimibe (Zetia) 10 mg PO DAILY [facility] Last Admin: 04/25/18 09:18 Dose: 10 mg Escitalopram Oxalate (Lexapro) 10 mg PO DAILY [facility] Last Admin: 04/25/18 09:18 Dose: 10 mg Heparin Sodium (Porcine) (Heparin Na) 5,000 unit SC Q8 [facility] Last Admin: 04/25/18 06:27 Dose: 5,000 unit Sodium Chloride () 1,000 mls @ 75 mls/hr IV .[id number] [facility] Stop: 04/25/18 22:38 Last Admin: 04/25/18 09:19 Dose: 75 mls/hr Insulin Human Lispro (Humalog Kwikpen (Bkc)) 0 unit SC ACHS [facility]; Protocol Last Admin: 04/25/18 06:29 Dose: Not Given Magnesium Hydroxide (Milk Of Magnesia) 30 ml PO DAILY PRN PRN PRN Reason: Constipation Nutritional Formula (Lactose Free) (Glucerna Shake) 120 ml PO 4X/DAY [facility] Last Admin: 04/25/18 09:19 Dose: 120 ml Pioglitazone HCl (Actos) 30 mg PO DAILY [facility] Last Admin: 04/25/18 09:18 Dose: 30 mg Ramipril (Altace) 5 mg PO DAILY [facility] Last Admin: 04/25/18 09:19 Dose: 5 mg Sodium Chloride () 5 - 15 ml IV UD PRN PRN Reason: SALINE FLUSH Last Admin: 04/24/18 22:33 Dose: 10 ml Tolterodine Tartrate (Detrol La) 2 mg PO DAILY [facility] Last Admin: 04/25/18 09:19 Dose: 2 mg Medical Necessity - Tobacco Use Smoking Status: Former smoker Assessment/Plan 1. Frequent falls/debility/functional decline/dizziness/mild dehydration -Orthostatic vital signs are positive will repeat tomorrow morning after he has had continue hydration -PT/OT to evaluate patient -Plan will be for discharge to retirement facility if necessary -CT brain was negative 2. CKD 3 -Creatinine on admission was 1.33, which is at baseline -Continue with IV fluids at 75 3. CAD status post CABG and stents/hyperlipidemia/hypertension -Continue with aspirin, Plavix -Blood pressure is stable, continue with ramipril -Continue with that you 4. DM 2 -Continue with sliding scale insulin and Accu-Cheks -Continue with his p.o. Actos -A1c is 6.2 5. Dementia -Stable -Continue with Aricept DVT: Subcu heparin Code Visit Inpatient E&M: 47683 Subs Hosp L2
--- NOTE | 2018-04-25 11:45 | PN_ITS ---
Subjective: Doing well, states that he still gets dizzy when he gets up. No shortness of breath or chest pain. Denies any upper extremity or lower extremity weakness. Vitals/I&O's: Vital Signs Temp Pulse Resp BP Pulse Ox 98.8 F 53 L 18 112/59 L 99 04/25/18 09:20 04/25/18 09:20 04/25/18 09:20 04/25/18 09:20 04/25/18 09:20 Oxygen Delivery Method Room Air Weight: 179 lb 10.828 oz Body Mass Index (BMI) 27.3 Finger Stick Blood Glucose 103 Orthostatic Vital Signs Start: 04/25/18 02:34 Freq: q24h Status: Active Protocol: Activity Type Activity Date Activity User E-Sign Co-Sign Detail Recorded Client Recorded Date Recorded By Document 04/25/18 02:15 [facility] [id number] 04/25/18 02:36 [facility] 04/25/18 02:15 Orthostatic Vitals Standing -Blood Pressure (90/60-120/80) 93/78 -Extremity Use Right Arm -Pulse Rate (60-100) 72 Sitting -Blood Pressure (90/60-120/80) 93/80 -Extremity Use Right Arm -Pulse Rate (60-100) 71 Lying -Blood Pressure (90/60-120/80) 124/76 H -Extremity Use Right Arm -Pulse Rate (60-100) 80 Intake and Output for Last 24 Hours 04/23/18 04/24/18 04/25/18 23:59 23:59 23:59 Intake Total 923 / 923 Balance 923 / 923 General: Alert, Oriented x3, Cooperative, No apparent distress HEENT: Atraumatic, PERRLA, EOMI, Normocephalic Oral: Moist Mucosa Neck: Supple, No JVD Lungs: Clear to auscultation, Normal air movement, No rhonchi, No wheeze, No rales Cardiovascular: Regular rate, Regular Rhythm, Normal S1, Normal S2, No murmurs Abdomen: Soft, Non Tender, Non-Distended, No Hepato-splenomegaly Extremities: No edema, Capillary Refill Less than 3 Seconds Skin: No rashes, - - Right flank abrasion clean does not appear infected Neurological: Motor Exam 5/5 strength throughout, Sensory exam intact to light touch and pain Psych/Mental Status: Normal Affect, Appropriate Laboratory Results 04/24/18 16:15: WBC 5.8, RBC 4.69, Hgb 13.1, Hct 42.7, MCV 91.0, MCH 27.9, MCHC 30.7 L, RDW 15.3 H, RDW Differential 50.4 H, Plt Count 155, MPV 11.4, Immature Gran % (Auto) 0.000, Neut % (Auto) 65.5, Lymph % (Auto) 22.5, [place] % (Auto) 8.4, Eos % (Auto) 3.1, Baso % (Auto) 0.5, Absolute Neuts (auto) 3.8, Absolute Lymphs (auto) 1.31, Total Counted Not Reportable 04/24/18 16:15: Sodium 143, Potassium 3.9, Chloride 106, Carbon Dioxide 28.0, Anion Gap 9, BUN 15, Creatinine 1.33 H, Estim Creat Clear Calc 40.64, Est GFR (MDRD) Af Amer 67, Est GFR (MDRD) Non-Af 55 L, BUN/Creatinine Ratio 11.3, Glucose 96, Calcium 8.8 04/24/18 16:15: Hemoglobin A1c 6.2 04/24/18 16:15: TSH 3.64 04/24/18 17:46: Urine Color Yellow, Urine Clarity Sl. Cloudy, Urine pH 6.0, Ur Specific [place] 1.015, Urine Protein Negative, Urine Glucose (UA) Normal, Urine Ketones Negative, Urine Occult Blood Negative, Urine Nitrite Negative, Urine Bilirubin Negative, Urine Urobilinogen 1 H, Ur Leukocyte Esterase 25 H, Urine RBC 0 SEEN, Urine WBC 5-10 SEEN, Ur Squamous Epith Cells 0-5 SEEN, Urine Bacteria RARE, Urine Mucus 0 SEEN 04/24/18 22:23: POC Glucose 95 04/25/18 05:55: WBC 4.8, RBC 3.87 L, Hgb 10.9 L, Hct 35.4 L, MCV 91.5, MCH 28.2, MCHC 30.8 L, RDW 14.9 H, RDW Differential 48.6 H, Plt Count 138 L, MPV 11.7, Immature Gran % (Auto) 0.000, Neut % (Auto) 53.5, Lymph % (Auto) 32.6, [place] % (Auto) 10.2 H, Eos % (Auto) 3.3, Baso % (Auto) 0.4, Absolute Neuts (auto) 2.6, Absolute Lymphs (auto) 1.57, Total Counted Not Reportable 04/25/18 05:55: Sodium 141, Potassium 3.7, Chloride 109 H, Carbon Dioxide 26.0, Anion Gap 6, BUN 17, Creatinine 1.20, Estim Creat Clear Calc 48.29, Est GFR (MDRD) Af Amer 75, Est GFR (MDRD) Non-Af 62, BUN/Creatinine Ratio 14.2, Glucose 105, Calcium 7.7 L 04/25/18 06:21: POC Glucose 96 Current Medications Aspirin (Ecotrin) 81 mg PO DAILY@0800 [facility] Last Admin: 04/25/18 09:19 Dose: 81 mg Clopidogrel Bisulfate (Plavix) 75 mg PO DAILY [facility] Last Admin: 04/25/18 09:18 Dose: 75 mg Docusate Sodium (Colace) 100 mg PO DAILY PRN PRN Reason: Constipation Donepezil HCl (Aricept) 10 mg PO QHS [facility] Last Admin: 04/24/18 22:33 Dose: 10 mg Ezetimibe (Zetia) 10 mg PO DAILY [facility] Last Admin: 04/25/18 09:18 Dose: 10 mg Escitalopram Oxalate (Lexapro) 10 mg PO DAILY [facility] Last Admin: 04/25/18 09:18 Dose: 10 mg Heparin Sodium (Porcine) (Heparin Na) 5,000 unit SC Q8 [facility] Last Admin: 04/25/18 06:27 Dose: 5,000 unit Sodium Chloride () 1,000 mls @ 75 mls/hr IV .[id number] [facility] Stop: 04/25/18 22:38 Last Admin: 04/25/18 09:19 Dose: 75 mls/hr Insulin Human Lispro (Humalog Kwikpen (Bkc)) 0 unit SC ACHS [facility]; Protocol Last Admin: 04/25/18 06:29 Dose: Not Given Magnesium Hydroxide (Milk Of Magnesia) 30 ml PO DAILY PRN PRN PRN Reason: Constipation Nutritional Formula (Lactose Free) (Glucerna Shake) 120 ml PO 4X/DAY [facility] Last Admin: 04/25/18 09:19 Dose: 120 ml Pioglitazone HCl (Actos) 30 mg PO DAILY [facility] Last Admin: 04/25/18 09:18 Dose: 30 mg Ramipril (Altace) 5 mg PO DAILY [facility] Last Admin: 04/25/18 09:19 Dose: 5 mg Sodium Chloride () 5 - 15 ml IV UD PRN PRN Reason: SALINE FLUSH Last Admin: 04/24/18 22:33 Dose: 10 ml Tolterodine Tartrate (Detrol La) 2 mg PO DAILY [facility] Last Admin: 04/25/18 09:19 Dose: 2 mg Medical Necessity - Tobacco Use Smoking Status: Former smoker Assessment/Plan 1. Frequent falls/debility/functional decline/dizziness/mild dehydration -Orthostatic vital signs are positive will repeat tomorrow morning after he has had continue hydration -PT/OT to evaluate patient -Plan will be for discharge to senior care facility if necessary -CT brain was negative 2. CKD 3 -Creatinine on admission was 1.33, which is at baseline -Continue with IV fluids at 75 3. CAD status post CABG and stents/hyperlipidemia/hypertension -Continue with aspirin, Plavix -Blood pressure is stable, continue with ramipril -Continue with that you 4. DM 2 -Continue with sliding scale insulin and Accu-Cheks -Continue with his p.o. Actos -A1c is 6.2 5. Dementia -Stable -Continue with Aricept DVT: Subcu heparin Code Visit Inpatient E&M: 81580 Subs Hosp L2
[2018-04-25 14:21] LABS: Bedside Glucose 129 mg/dL (70-110)
[2018-04-25 15:26] LABS: Bedside Glucose 86 mg/dL (70-110)
[2018-04-25] MEDS: Donepezil HCl 10 MG Tablet PO (21:48)
[2018-04-26] VITALS (12 sets, daily range): BP systolic 100–133; BP diastolic 52–75; PULSE 53–72; RESP 16–18; TEMP 36.5–36.6; O2SAT 93–99
[2018-04-26 01:21] LABS: Bedside Glucose 123 mg/dL (70-110)
[2018-04-26] MEDS: Acetaminophen 325 MG Tablet 650 MG PO ×2 (03:15→08:50)
[2018-04-26] MEDS: 0.9% NaCl Peripheral Flush Adult/Peds IV (03:49)
[2018-04-26 05:54] LABS: Absolute Lymphocyte Count 1.56 X10^3/ul (0.83-4.51); Absolute Neutrophil Count 4.8 X10^3/uL (2.0-7.7); Basophil# 0.03 X10^3/uL; Basophil% 0.4 % (0-1); Eosinophils% 2.7 % (0-5); Hematocrit 36.5 % (40-54); Hemoglobin 11.3 g/dl (13.0-16.5); Lymphocyte # 1.56 X10^3/ul (4.0); Lymphocyte % 21.3 % (19-41); Mean Corpuscular Hgb 28.4 pg (27.0-32.0); Mean Corpuscular Volume 91.7 fL (80-94); Mean Platelet Vol. 11.6 fl (6.2-12.0); Monocyte# 0.69 X10^3/uL; Monocyte% 9.4 % (0-10); Neutrophil # 4.82 X10^3/uL (2.7-7.7); Neutrophil % 66.1 % (47-70); Platelet Count 133 K/mm3 (150-450); RBC Distribution Width CV 14.9 % (11.6-14.6); RBC Distribution Width SD 48.8 fl (35.1-43.9); Red Blood Count 3.98 M/mm3 (4.6-6.2); White Blood Count 7.3 K/mm3 (4.4-11.0)
[2018-04-26 05:59] LABS: Anion Gap 7 (5-15); BUN 15 mg/dL (7-18); BUN/Creat Ratio 12.8 RATIO (10-20); Chloride 111 mmol/L (98-107); Creatinine, Serum 1.17 mg/dL (0.70-1.30); EST Glomerular Filtration Rate 64 mL/min (>60); Est Glom Filt Rate - Afr Amer 77 mL/min (>60); Estimated Creatinine Clearance 49.53 ml/min; Glucose 80 mg/dL (74-106); Potassium 3.9 mmol/L (3.5-5.1); Sodium Level 143 mmol/L (136-145)
[2018-04-26 06:05] LABS: POSITIVE COUNT NO; POSITIVE DIFFERENTIAL NO; POSITIVE MORPHOLOGY NO
--- NOTE | 2018-04-26 06:24 | NURSING ---
Addendum entered by Gian Napoles 04/26/18 06:26: educated pt regarding having his BG dropping more. also why he is getting his heparin shot to prevent blood clot. pt still refused. Original Note: Patients BG is 80 this morning. pt refused to drink or eat anything and also refused heparin sq.
[2018-04-26 06:26] LABS: Bedside Glucose 80 mg/dL (70-110)
[2018-04-26] MEDS: Pioglitazone Hydrochloride 30 MG Tablet PO (08:49)
[2018-04-26] MEDS: Tolterodine Tartrate 2 MG CAP.SA PO (08:49)
[2018-04-26] MEDS: Ezetimibe 10 MG Tablet PO (08:49)
[2018-04-26] MEDS: Clopidogrel Bisulfate 75 MG Tablet PO (08:49)
[2018-04-26] MEDS: Escitalopram Oxalate 10 MG Tablet PO (08:49)
[2018-04-26] MEDS: Aspirin E.C. 81 MG Tablet PO (08:50)
[2018-04-26] MEDS: Ramipril 5 MG Capsule PO (08:50)
--- NOTE | 2018-04-26 11:14 | CHAPLAIN ---
patient was sleeping; left a calling card
--- NOTE | 2018-04-26 12:14 | PN_ITS ---
Subjective: Patient seen and examined. He complained of mild dizziness overnight which is chronic. He denied any fever or chills, cough or chest pain, shortness of breath, abdominal pain, diarrhea vomiting. Review of systems otherwise negative. Patient is awaiting placement. Labs and vitals reviewed. Vitals/I&O's: Vital Signs Temp Pulse Resp BP Pulse Ox 97.7 F L 58 L 16 133/75 H 93 04/26/18 09:00 04/26/18 09:00 04/26/18 09:00 04/26/18 09:00 04/26/18 09:00 Oxygen Delivery Method Room Air Weight: 179 lb 10.828 oz Body Mass Index (BMI) 27.3 Finger Stick Blood Glucose 103 Orthostatic Vital Signs Start: 04/25/18 02:34 Freq: q24h Status: Active Protocol: Activity Type Activity Date Activity User E-Sign Co-Sign Detail Recorded Client Recorded Date Recorded By Document 04/26/18 03:17 [facility] [id number] 04/26/18 03:18 [facility] 04/26/18 03:17 Orthostatic Vitals Standing -Blood Pressure (90/60-120/80) 104/56 L -Extremity Use Left Arm -Pulse Rate (60-100) 64 Sitting -Blood Pressure (90/60-120/80) 100/58 L -Extremity Use Left Arm -Pulse Rate (60-100) 60 Lying -Blood Pressure (90/60-120/80) 129/52 H -Extremity Use Left Arm -Pulse Rate (60-100) 63 Intake and Output for Last 24 Hours 04/24/18 04/25/18 04/26/18 23:59 23:59 23:59 Intake Total 2457 / 2457 880 / 880 Output Total 100 / 100 100 / 100 Balance 2357 / 2357 780 / 780 General: Alert, Oriented x3, Cooperative, No apparent distress HEENT: Atraumatic, PERRLA, EOMI, - - very hard of hearing Oral: Moist Mucosa Neck: Supple, No JVD, Negative Carotid Bruits Lungs: Clear to auscultation, Normal air movement, No rhonchi, No wheeze, No rales Cardiovascular: Regular rate, Regular Rhythm, Normal S1, Normal S2, No murmurs Abdomen: Bowel Sounds Present, Soft, Non Tender Extremities: No clubbing, No cyanosis, No edema, Capillary Refill Less than 3 Seconds Skin: No rashes, No breakdown Musculoskeletal: No Tenderness to Palpation of Joints or Extremities Lymphatic: No Cervical, Supraclavicular, or Inguinal Adenopathy Neurological: Cranial nerves II-XII grossly intact, Neuro grossly intact Psych/Mental Status: Normal Affect, Appropriate, Alert and oriented to time, place, person, mood and affect Laboratory Results 04/25/18 12:04: POC Glucose 129 H 04/25/18 15:09: POC Glucose 86 04/25/18 21:43: POC Glucose 123 H 04/26/18 05:04: WBC 7.3, RBC 3.98 L, Hgb 11.3 L, Hct 36.5 L, MCV 91.7, MCH 28.4, MCHC 31.0 L, RDW 14.9 H, RDW Differential 48.8 H, Plt Count 133 L, MPV 11.6, Immature Gran % (Auto) 0.100, Neut % (Auto) 66.1, Lymph % (Auto) 21.3, [place] % (Auto) 9.4, Eos % (Auto) 2.7, Baso % (Auto) 0.4, Absolute Neuts (auto) 4.8, Absolute Lymphs (auto) 1.56, Total Counted Not Reportable 04/26/18 05:04: Sodium 143, Potassium 3.9, Chloride 111 H, Carbon Dioxide 25.0, Anion Gap 7, BUN 15, Creatinine 1.17, Estim Creat Clear Calc 49.53, Est GFR (MDRD) Af Amer 77, Est GFR (MDRD) Non-Af 64, BUN/Creatinine Ratio 12.8, Glucose 80, Calcium 8.0 L 04/26/18 06:14: POC Glucose [address] 04/24/18 15:57 IMPRESSION: 1. No acute process. 2. Chronic left basal ganglia lacunar infarct. 3. Microvascular ischemic changes. Atrophy. Electronically Signed: Matilde Espinoza MD at 18:01 EST Tel , Service support , Abdomen/Pelvis CT 04/24/18 15:58 IMPRESSION: No acute traumatic findings in the abdomen or pelvis. Stable nonacute findings, as above. Electronically Signed: Robby Andrez, at 18:00 EST Tel , Service support , Shoulder X-Ray 04/24/18 19:59 IMPRESSION: 1. Osteoporosis. 2. No definite evidence for acute fracture. 3. Degenerative arthropathy. Electronically Signed: Judit Sue MD at 5:30 EST , Service support , Current Medications Acetaminophen (Tylenol) 650 mg PO Q6H PRN PRN PRN Reason: PAIN Last Admin: 04/26/18 08:50 Dose: 650 mg Aspirin (Ecotrin) 81 mg PO DAILY@0800 [facility] Last Admin: 04/26/18 08:50 Dose: 81 mg Clopidogrel Bisulfate (Plavix) 75 mg PO DAILY [facility] Last Admin: 04/26/18 08:49 Dose: 75 mg Docusate Sodium (Colace) 100 mg PO DAILY PRN PRN Reason: Constipation Donepezil HCl (Aricept) 10 mg PO QHS [facility] Last Admin: 04/25/18 21:48 Dose: 10 mg Ezetimibe (Zetia) 10 mg PO DAILY [facility] Last Admin: 04/26/18 08:49 Dose: 10 mg Escitalopram Oxalate (Lexapro) 10 mg PO DAILY [facility] Last Admin: 04/26/18 08:49 Dose: 10 mg Heparin Sodium (Porcine) (Heparin Na) 5,000 unit SC Q8 [facility] Last Admin: 04/25/18 21:49 Dose: 5,000 unit Insulin Human Lispro (Humalog Kwikpen (Bkc)) 0 unit SC ACHS [facility]; Protocol Last Admin: 04/26/18 06:20 Dose: Not Given Magnesium Hydroxide (Milk Of Magnesia) 30 ml PO DAILY PRN PRN PRN Reason: Constipation Nutritional Formula (Lactose Free) (Glucerna Shake) 120 ml PO 4X/DAY [facility] Last Admin: 04/25/18 21:48 Dose: 120 ml Pioglitazone HCl (Actos) 30 mg PO DAILY [facility] Last Admin: 04/26/18 08:49 Dose: 30 mg Ramipril (Altace) 5 mg PO DAILY [facility] Last Admin: 04/26/18 08:50 Dose: 5 mg Sodium Chloride () 5 - 15 ml IV UD PRN PRN Reason: SALINE FLUSH Last Admin: 04/26/18 03:49 Dose: 10 ml Tolterodine Tartrate (Detrol La) 2 mg PO DAILY [facility] Last Admin: 04/26/18 08:49 Dose: 2 mg Medical Necessity - Tobacco Use Smoking Status: Former smoker Assessment/Plan 1. Debility due to mechanical falls * orthostatics are positive * CT brain was negative for any acute intracranial pathology * PT/OT on board * awaiting placement * 2. Orthostatic hypotension * possibly due to decreased intake * on IVF NS * if orthostatics remain positive. micha consider adding on fludrocortisone * 3. CAD s/p CABG and stents: on aspirin, plavix 4. Hypertension: on ramipril 5. Type 2 diabetes mellitus: on ISS. on PO Actos. Accuchecks ACHS. 6. Dementia: on aricept DVT prophylaxis; heparin Code Visit Inpatient E&M: 98165 Subs Hosp L2
--- NOTE | 2018-04-26 12:30 | CASEMGMT ---
EMA SHAW Face to Face with patient for initial transition planning/care coordination assessment. EMA SHAW introduced self and role at [facility]. Patient sitting in chair, alert and oriented, at bedside. Patient willing to participate in assessment and is able to answer all questions appropriately. Care providers, pharmacy, and demographics verified. Patient wishes to discharge to TCU, updated that there are no beds available. EMA SHAW provided list of additional facilities in network with patient's insurance. Patient and states they have no further needs or concerns at this time. SUSAN Reyez updated regarding request for placement PCP: Daiana Andrew VISUAL MERCHANDISING COORDINATOR Specialists: Ngozi, post acute care registered nurse; Tiago, urologist Preferred Pharmacy: [facility] Insurance: MMO MCR Prescription Benefit: MMO MCR Living Will/HPOA: yes, HPOA LNOK: Living Arrangements: Patient lives in condo with , no steps to enter home. Transportation: DME/HHC: Patient has raised toilet, cane, grab bars, walker at home. Disposition Plan: SNF pending precert. Angie ARANDA, RN, CM
[2018-04-26 13:50] LABS: Bedside Glucose 80 mg/dL (70-110)
[2018-04-26] MEDS: Glucerna Shake 120 ML LIQUID PO ×3 (15:19→23:25)
[2018-04-26] MEDS: Heparin Injection (Vial) 5,000 UNIT/ML VIAL 5000 UNIT SC ×2 (15:21→23:30)
--- NOTE | 2018-04-26 15:45 | CHAPLAIN ---
patient was getting bathed but several family members were gathered in hallway; family very welcoming and encouraging of future visits with pt; offered support to family members too
--- NOTE | 2018-04-26 16:20 | CASEMGMT ---
EMA SHAW completed LUCIANO form with patient. Family at bedside requesting TCU be looked at again or if Rehab unit is appropriate. LUCIANO form filed on chart. SW updated regarding family's request for TCU or RU. SUSAN updated Marquita and there is a bed available tomorrow in TCU pending precert. SW to initiate precert. Family and patient updated regarding bed available pending precert.
[2018-04-26 16:30] LABS: Bedside Glucose 116 mg/dL (70-110)
--- NOTE | 2018-04-26 16:33 | CASEMGMT ---
Social Work Note EMA Zambrano updated this worker that pt and pt's family is agreeable to TCU or RU. SUSAN spoke with Marquita who states [facility] usually denies pt's to RU and pt doesn't have a qualifying diagnosis for RU. Marquita states that a bed on TCU has opened up for pt tomorrow. SUSAN informed Marquita that this worker will need to submit referral to [facility] and they will have to approve level of care and then TCU can submit for pre-cert. Marquita states understanding. EMA Zambrano updated pt and pt's family on acceptance into TCU and that pre-cert will be needed. SUSAN faxed referral to [facility] and called [facility] and left a message for referral to TCU. Plan: TCU pending pre-cert Angie Reyez [employer] DEMONSTRATOR, [employer]
[2018-04-26 23:26] LABS: Bedside Glucose 80 mg/dL (70-110)
[2018-04-26] MEDS: Donepezil HCl 10 MG Tablet PO (23:30)
[2018-04-27] VITALS (11 sets, daily range): BP systolic 92–155; BP diastolic 50–79; PULSE 57–99; RESP 16; TEMP 36.4–36.8; O2SAT 96–100
[2018-04-27 05:32] LABS: Absolute Neutrophil Count 3.2 X10^3/uL (2.0-7.7); Basophil# 0.02 X10^3/uL; Basophil% 0.3 % (0-1); Eosinophil# 0.28 X10^3/uL; Eosinophils% 4.9 % (0-5); Hematocrit 38.1 % (40-54); Hemoglobin 11.9 g/dl (13.0-16.5); Lymphocyte % 27.9 % (19-41); Mean Corp Hgb Conc 31.2 g/gl (32-36); Mean Corpuscular Hgb 28.6 pg (27.0-32.0); Mean Corpuscular Volume 91.6 fL (80-94); Mean Platelet Vol. 11.9 fl (6.2-12.0); Monocyte# 0.59 X10^3/uL; Monocyte% 10.3 % (0-10); Neutrophil # 3.24 X10^3/uL (2.7-7.7); Neutrophil % 56.6 % (47-70); Platelet Count 136 K/mm3 (150-450); RBC Distribution Width CV 14.9 % (11.6-14.6); RBC Distribution Width SD 48.6 fl (35.1-43.9); Red Blood Count 4.16 M/mm3 (4.6-6.2); White Blood Count 5.7 K/mm3 (4.4-11.0)
[2018-04-27 06:32] LABS: Anion Gap 10 (5-15); BUN 15 mg/dL (7-18); BUN/Creat Ratio 13.3 RATIO (10-20); Calcium,Total 8.2 mg/dL (8.5-10.1); Chloride 108 mmol/L (98-107); Creatinine, Serum 1.13 mg/dL (0.70-1.30); EST Glomerular Filtration Rate 67 mL/min (>60); Est Glom Filt Rate - Afr Amer 81 mL/min (>60); Estimated Creatinine Clearance 51.28 ml/min; Glucose 92 mg/dL (74-106); Potassium 3.9 mmol/L (3.5-5.1); Sodium Level 144 mmol/L (136-145)
[2018-04-27] MEDS: Heparin Injection (Vial) 5,000 UNIT/ML VIAL 5000 UNIT SC ×3 (06:44→21:39)
[2018-04-27] MEDS: 0.9% NaCl Peripheral Flush Adult/Peds IV (06:45)
[2018-04-27 06:46] LABS: Bedside Glucose 93 mg/dL (70-110)
[2018-04-27 07:00] LABS: POSITIVE COUNT NO; POSITIVE DIFFERENTIAL NO; POSITIVE MORPHOLOGY NO
[2018-04-27] MEDS: Tolterodine Tartrate 2 MG CAP.SA PO (08:46)
[2018-04-27] MEDS: Ezetimibe 10 MG Tablet PO (08:46)
[2018-04-27] MEDS: Escitalopram Oxalate 10 MG Tablet PO (08:46)
[2018-04-27] MEDS: Ramipril 5 MG Capsule PO (08:46)
[2018-04-27] MEDS: Pioglitazone Hydrochloride 30 MG Tablet PO (08:47)
[2018-04-27] MEDS: Clopidogrel Bisulfate 75 MG Tablet PO (08:47)
[2018-04-27] MEDS: Aspirin E.C. 81 MG Tablet PO (08:47)
[2018-04-27] MEDS: Glucerna Shake 120 ML LIQUID PO ×4 (08:49→21:41)
--- NOTE | 2018-04-27 09:58 | PCM.PN.HOSP ---
Subjective: Patient seen and examined. He had no complaints and there were no acute events overnight. He no longer fever chills, cough or chest pain, shortness of breath, abdominal pain, any diarrhea vomiting. Review of systems otherwise negative. Patient is very hard of hearing. Labs and vitals reviewed. Vitals/I&O's: Vital Signs Temp Pulse Resp BP Pulse Ox 97.9 F 59 L 16 113/54 L 97 04/27/18 08:33 04/27/18 08:38 04/27/18 08:33 04/27/18 08:33 04/27/18 08:33 Oxygen Delivery Method Room Air Weight: 179 lb 10.828 oz Body Mass Index (BMI) 27.3 Finger Stick Blood Glucose 103 Orthostatic Vital Signs Start: 04/25/18 02:34 Freq: q24h Status: Active Protocol: Activity Type Activity Date Activity User E-Sign Co-Sign Detail Recorded Client Recorded Date Recorded By Document 04/27/18 04:17 [facility] [id number] 04/27/18 04:27 MM 04/27/18 04:17 Orthostatic Vitals Standing -Blood Pressure (90/60-120/80) 154/78 H -Pulse Rate (60-100) 58 L Sitting -Blood Pressure (90/60-120/80) 147/79 H -Extremity Use Left Arm -Pulse Rate (60-100) 60 Lying -Blood Pressure (90/60-120/80) 155/70 H -Extremity Use Left Arm -Pulse Rate (60-100) 65 Intake and Output for Last 24 Hours 04/25/18 04/26/18 04/27/18 23:59 23:59 23:59 Intake Total 2457 / 2457 1580 / 1580 300 / 300 Output Total 100 / 100 200 / 200 Balance 2357 / 2357 1380 / 1380 300 / 300 General: Alert, Oriented x3, Cooperative HEENT: Atraumatic, PERRLA, EOMI, Normocephalic Oral: Dry Mucosa Neck: Supple, No JVD, Negative Carotid Bruits Lungs: Clear to auscultation, Normal air movement, No rhonchi, No wheeze, No rales Cardiovascular: Regular rate, Regular Rhythm, Normal S1, Normal S2, No murmurs Abdomen: Bowel Sounds Present, Soft, Non Tender, Non-Distended, No Hepato-splenomegaly Extremities: No edema, Capillary Refill Less than 3 Seconds Skin: No rashes, No breakdown Musculoskeletal: No Tenderness to Palpation of Joints or Extremities Lymphatic: No Cervical, Supraclavicular, or Inguinal Adenopathy Neurological: Cranial nerves II-XII grossly intact, Neuro grossly intact Psych/Mental Status: Normal Affect, Appropriate Laboratory Results 04/26/18 12:11: POC Glucose 80 04/26/18 16:27: POC Glucose 116 H 04/26/18 23:22: POC Glucose 80 04/27/18 04:40: WBC 5.7, RBC 4.16 L, Hgb 11.9 L, Hct 38.1 L, MCV 91.6, MCH 28.6, MCHC 31.2 L, RDW 14.9 H, RDW Differential 48.6 H, Plt Count 136 L, MPV 11.9, Immature Gran % (Auto) 0.000, Neut % (Auto) 56.6, Lymph % (Auto) 27.9, [place] % (Auto) 10.3 H, Eos % (Auto) 4.9, Baso % (Auto) 0.3, Absolute Neuts (auto) 3.2, Absolute Lymphs (auto) 1.60, Total Counted Not Reportable 04/27/18 04:40: Sodium 144, Potassium 3.9, Chloride 108 H, Carbon Dioxide 26.0, Anion Gap 10, BUN 15, Creatinine 1.13, Estim Creat Clear Calc 51.28, Est GFR (MDRD) Af Amer 81, Est GFR (MDRD) Non-Af 67, BUN/Creatinine Ratio 13.3, Glucose 92, Calcium 8.2 L 04/27/18 06:39: POC Glucose 93 Current Medications Acetaminophen (Tylenol) 650 mg PO Q6H PRN PRN PRN Reason: PAIN Last Admin: 04/26/18 08:50 Dose: 650 mg Aspirin (Ecotrin) 81 mg PO DAILY@0800 [facility] Last Admin: 04/27/18 08:47 Dose: 81 mg Clopidogrel Bisulfate (Plavix) 75 mg PO DAILY [facility] Last Admin: 04/27/18 08:47 Dose: 75 mg Docusate Sodium (Colace) 100 mg PO DAILY PRN PRN Reason: Constipation Donepezil HCl (Aricept) 10 mg PO QHS [facility] Last Admin: 04/26/18 23:30 Dose: 10 mg Ezetimibe (Zetia) 10 mg PO DAILY [facility] Last Admin: 04/27/18 08:46 Dose: 10 mg Escitalopram Oxalate (Lexapro) 10 mg PO DAILY [facility] Last Admin: 04/27/18 08:46 Dose: 10 mg Heparin Sodium (Porcine) (Heparin Na) 5,000 unit SC Q8 [facility] Last Admin: 04/27/18 06:44 Dose: 5,000 unit Insulin Human Lispro (Humalog Kwikpen (Bkc)) 0 unit SC ACHS [facility]; Protocol Last Admin: 04/27/18 06:46 Dose: Not Given Magnesium Hydroxide (Milk Of Magnesia) 30 ml PO DAILY PRN PRN PRN Reason: Constipation Nutritional Formula (Lactose Free) (Glucerna Shake) 120 ml PO 4X/DAY [facility] Last Admin: 04/27/18 08:49 Dose: 120 ml Pioglitazone HCl (Actos) 30 mg PO DAILY [facility] Last Admin: 04/27/18 08:47 Dose: 30 mg Ramipril (Altace) 5 mg PO DAILY [facility] Last Admin: 04/27/18 08:46 Dose: 5 mg Sodium Chloride () 5 - 15 ml IV UD PRN PRN Reason: SALINE FLUSH Last Admin: 04/27/18 06:45 Dose: 10 ml Tolterodine Tartrate (Detrol La) 2 mg PO DAILY [facility] Last Admin: 04/27/18 08:46 Dose: 2 mg Medical Necessity - Tobacco Use Smoking Status: Former smoker Assessment/Plan 1. Debility due to mechanical falls CT brain was negative for any acute intracranial pathology PT/OT on board awaiting placement 2. Orthostatic hypotension resolving will encourage adequate oral intake if orthostatics remain positive. micha consider adding on fludrocortisone 3. CAD s/p CABG and stents: on aspirin, plavix 4. Hypertension: on ramipril 5. Type 2 diabetes mellitus: on ISS. on PO Actos. Accuchecks ACHS. 6. Dementia: on aricept 6 Bradycardia: asymptomatic. Denies any dizziness. HR in the high 50s. will continue to monitor DVT prophylaxis; heparin Disposition: awaiting placement Code Visit Inpatient E&M: 22917 Subs Hosp L2
--- NOTE | 2018-04-27 10:04 | PN_ITS ---
Subjective: Patient seen and examined. He had no complaints and there were no acute events overnight. He no longer fever chills, cough or chest pain, shortness of breath, abdominal pain, any diarrhea vomiting. Review of systems otherwise negative. Patient is very hard of hearing. Labs and vitals reviewed. Vitals/I&O's: Vital Signs Temp Pulse Resp BP Pulse Ox 97.9 F 59 L 16 113/54 L 97 04/27/18 08:33 04/27/18 08:38 04/27/18 08:33 04/27/18 08:33 04/27/18 08:33 Oxygen Delivery Method Room Air Weight: 179 lb 10.828 oz Body Mass Index (BMI) 27.3 Finger Stick Blood Glucose 103 Orthostatic Vital Signs Start: 04/25/18 02:34 Freq: q24h Status: Active Protocol: Activity Type Activity Date Activity User E-Sign Co-Sign Detail Recorded Client Recorded Date Recorded By Document 04/27/18 04:17 MM [id number] 04/27/18 04:27 MM 04/27/18 04:17 Orthostatic Vitals Standing -Blood Pressure (90/60-120/80) 154/78 H -Pulse Rate (60-100) 58 L Sitting -Blood Pressure (90/60-120/80) 147/79 H -Extremity Use Left Arm -Pulse Rate (60-100) 60 Lying -Blood Pressure (90/60-120/80) 155/70 H -Extremity Use Left Arm -Pulse Rate (60-100) 65 Intake and Output for Last 24 Hours 04/25/18 04/26/18 04/27/18 23:59 23:59 23:59 Intake Total 2457 / 2457 1580 / 1580 300 / 300 Output Total 100 / 100 200 / 200 Balance 2357 / 2357 1380 / 1380 300 / 300 General: Alert, Oriented x3, Cooperative HEENT: Atraumatic, PERRLA, EOMI, Normocephalic Oral: Dry Mucosa Neck: Supple, No JVD, Negative Carotid Bruits Lungs: Clear to auscultation, Normal air movement, No rhonchi, No wheeze, No rales Cardiovascular: Regular rate, Regular Rhythm, Normal S1, Normal S2, No murmurs Abdomen: Bowel Sounds Present, Soft, Non Tender, Non-Distended, No Hepato- splenomegaly Extremities: No edema, Capillary Refill Less than 3 Seconds Skin: No rashes, No breakdown Musculoskeletal: No Tenderness to Palpation of Joints or Extremities Lymphatic: No Cervical, Supraclavicular, or Inguinal Adenopathy Neurological: Cranial nerves II-XII grossly intact, Neuro grossly intact Psych/Mental Status: Normal Affect, Appropriate Laboratory Results 04/26/18 12:11: POC Glucose 80 04/26/18 16:27: POC Glucose 116 H 04/26/18 23:22: POC Glucose 80 04/27/18 04:40: WBC 5.7, RBC 4.16 L, Hgb 11.9 L, Hct 38.1 L, MCV 91.6, MCH 28.6, MCHC 31.2 L, RDW 14.9 H, RDW Differential 48.6 H, Plt Count 136 L, MPV 11.9, Immature Gran % (Auto) 0.000, Neut % (Auto) 56.6, Lymph % (Auto) 27.9, [place] % (Auto) 10.3 H, Eos % (Auto) 4.9, Baso % (Auto) 0.3, Absolute Neuts (auto) 3.2, Absolute Lymphs (auto) 1.60, Total Counted Not Reportable 04/27/18 04:40: Sodium 144, Potassium 3.9, Chloride 108 H, Carbon Dioxide 26.0, Anion Gap 10, BUN 15, Creatinine 1.13, Estim Creat Clear Calc 51.28, Est GFR (MDRD) Af Amer 81, Est GFR (MDRD) Non-Af 67, BUN/Creatinine Ratio 13.3, Glucose 92, Calcium 8.2 L 04/27/18 06:39: POC Glucose 93 Current Medications Acetaminophen (Tylenol) 650 mg PO Q6H PRN PRN PRN Reason: PAIN Last Admin: 04/26/18 08:50 Dose: 650 mg Aspirin (Ecotrin) 81 mg PO DAILY@0800 [facility] Last Admin: 04/27/18 08:47 Dose: 81 mg Clopidogrel Bisulfate (Plavix) 75 mg PO DAILY [facility] Last Admin: 04/27/18 08:47 Dose: 75 mg Docusate Sodium (Colace) 100 mg PO DAILY PRN PRN Reason: Constipation Donepezil HCl (Aricept) 10 mg PO QHS [facility] Last Admin: 04/26/18 23:30 Dose: 10 mg Ezetimibe (Zetia) 10 mg PO DAILY [facility] Last Admin: 04/27/18 08:46 Dose: 10 mg Escitalopram Oxalate (Lexapro) 10 mg PO DAILY [facility] Last Admin: 04/27/18 08:46 Dose: 10 mg Heparin Sodium (Porcine) (Heparin Na) 5,000 unit SC Q8 [facility] Last Admin: 04/27/18 06:44 Dose: 5,000 unit Insulin Human Lispro (Humalog Kwikpen (Bkc)) 0 unit SC ACHS [facility]; Protocol Last Admin: 04/27/18 06:46 Dose: Not Given Magnesium Hydroxide (Milk Of Magnesia) 30 ml PO DAILY PRN PRN PRN Reason: Constipation Nutritional Formula (Lactose Free) (Glucerna Shake) 120 ml PO 4X/DAY [facility] Last Admin: 04/27/18 08:49 Dose: 120 ml Pioglitazone HCl (Actos) 30 mg PO DAILY [facility] Last Admin: 04/27/18 08:47 Dose: 30 mg Ramipril (Altace) 5 mg PO DAILY [facility] Last Admin: 04/27/18 08:46 Dose: 5 mg Sodium Chloride () 5 - 15 ml IV UD PRN PRN Reason: SALINE FLUSH Last Admin: 04/27/18 06:45 Dose: 10 ml Tolterodine Tartrate (Detrol La) 2 mg PO DAILY [facility] Last Admin: 04/27/18 08:46 Dose: 2 mg Medical Necessity - Tobacco Use Smoking Status: Former smoker Assessment/Plan 1. Debility due to mechanical falls * CT brain was negative for any acute intracranial pathology * PT/OT on board * awaiting placement * 2. Orthostatic hypotension * resolving * will encourage adequate oral intake * if orthostatics remain positive. micha consider adding on fludrocortisone * 3. CAD s/p CABG and stents: on aspirin, plavix 4. Hypertension: on ramipril 5. Type 2 diabetes mellitus: on ISS. on PO Actos. Accuchecks ACHS. 6. Dementia: on aricept 6 Bradycardia: asymptomatic. Denies any dizziness. HR in the high 50s. will continue to monitor DVT prophylaxis; heparin Disposition: awaiting placement Code Visit Inpatient E&M: 17290 Subs Hosp L2
[2018-04-27 11:56] LABS: Bedside Glucose 90 mg/dL (70-110)
[2018-04-27] MEDS: Acetaminophen 325 MG Tablet 650 MG PO (17:56)
[2018-04-27] MEDS: Donepezil HCl 10 MG Tablet PO (21:38)
[2018-04-28] VITALS (7 sets, daily range): BP systolic 104–132; BP diastolic 57–87; PULSE 61–78; RESP 16–18; TEMP 36.4–37; O2SAT 96–100
[2018-04-28] MEDS: Heparin Injection (Vial) 5,000 UNIT/ML VIAL 5000 UNIT SC ×3 (06:38→22:51)
[2018-04-28] MEDS: Pioglitazone Hydrochloride 30 MG Tablet PO (07:41)
[2018-04-28] MEDS: Aspirin E.C. 81 MG Tablet PO (07:41)
[2018-04-28] MEDS: Ezetimibe 10 MG Tablet PO (07:42)
[2018-04-28] MEDS: Ramipril 5 MG Capsule PO (07:42)
[2018-04-28] MEDS: Escitalopram Oxalate 10 MG Tablet PO (07:42)
[2018-04-28] MEDS: Tolterodine Tartrate 2 MG CAP.SA PO (07:42)
[2018-04-28] MEDS: Clopidogrel Bisulfate 75 MG Tablet PO (07:42)
[2018-04-28] MEDS: Glucerna Shake 120 ML LIQUID PO ×4 (07:43→22:51)
[2018-04-28] MEDS: Acetaminophen 325 MG Tablet 650 MG PO (07:50)
--- NOTE | 2018-04-28 12:41 | PCM.PN.HOSP ---
Subjective: Patient seen and examined. He had no complaints and felt well. He denied any fever or chills, any cough or chest pain, shortness of breath, abdominal pain, diarrhea or vomiting. Review of systems otherwise negative. Labs and vitals reviewed. He still awaiting placement. Vitals/I&O's: Vital Signs Temp Pulse Resp BP Pulse Ox 97.5 F L 68 18 120/72 97 04/28/18 07:54 04/28/18 07:54 04/28/18 07:54 04/28/18 07:54 04/28/18 07:54 Oxygen Delivery Method Room Air Weight: 179 lb 10.828 oz Body Mass Index (BMI) 27.3 Finger Stick Blood Glucose 103 Orthostatic Vital Signs Start: 04/25/18 02:34 Freq: q24h Status: Active Protocol: Activity Type Activity Date Activity User E-Sign Co-Sign Detail Recorded Client Recorded Date Recorded By Document 04/28/18 03:52 [id number] 04/28/18 03:55 04/28/18 03:52 Orthostatic Vitals Standing -Blood Pressure (90/60-120/80) 128/76 H -Extremity Use Right Arm -Pulse Rate (60-100) 78 Sitting -Blood Pressure (90/60-120/80) 126/76 H -Extremity Use Right Arm -Pulse Rate (60-100) 77 Lying -Blood Pressure (90/60-120/80) 132/87 H -Extremity Use Right Arm -Pulse Rate (60-100) 74 Intake and Output for Last 24 Hours 04/26/18 04/27/18 04/28/18 23:59 23:59 23:59 Intake Total 1580 / 1580 300 / 300 120 / 120 Output Total 200 / 200 Balance 1380 / 1380 300 / 300 120 / 120 General: Alert, Oriented x3, Cooperative HEENT: Atraumatic, PERRLA, EOMI, Normocephalic Oral: Dry Mucosa Neck: Supple, No JVD, Negative Carotid Bruits Lungs: Clear to auscultation, Normal air movement, No rhonchi, No wheeze, No rales Cardiovascular: Regular rate, Regular Rhythm, Normal S1, Normal S2, No murmurs Abdomen: Bowel Sounds Present, Soft, Non Tender, Non-Distended, No Hepato-splenomegaly Extremities: No edema, Capillary Refill Less than 3 Seconds Skin: No rashes, No breakdown Musculoskeletal: No Tenderness to Palpation of Joints or Extremities Lymphatic: No Cervical, Supraclavicular, or Inguinal Adenopathy Neurological: Cranial nerves II-XII grossly intact, Neuro grossly intact Psych/Mental Status: Normal Affect, Appropriate Current Medications Acetaminophen (Tylenol) 650 mg PO Q6H PRN PRN PRN Reason: PAIN Last Admin: 04/28/18 07:50 Dose: 650 mg Aspirin (Ecotrin) 81 mg PO DAILY@0800 [facility] Last Admin: 04/28/18 07:41 Dose: 81 mg Clopidogrel Bisulfate (Plavix) 75 mg PO DAILY [facility] Last Admin: 04/28/18 07:42 Dose: 75 mg Docusate Sodium (Colace) 100 mg PO DAILY PRN PRN Reason: Constipation Donepezil HCl (Aricept) 10 mg PO QHS [facility] Last Admin: 04/27/18 21:38 Dose: 10 mg Ezetimibe (Zetia) 10 mg PO DAILY [facility] Last Admin: 04/28/18 07:42 Dose: 10 mg Escitalopram Oxalate (Lexapro) 10 mg PO DAILY [facility] Last Admin: 04/28/18 07:42 Dose: 10 mg Heparin Sodium (Porcine) (Heparin Na) 5,000 unit SC Q8 [facility] Last Admin: 04/28/18 06:38 Dose: 5,000 unit Magnesium Hydroxide (Milk Of Magnesia) 30 ml PO DAILY PRN PRN PRN Reason: Constipation Nutritional Formula (Lactose Free) (Glucerna Shake) 120 ml PO 4X/DAY [facility] Last Admin: 04/28/18 07:43 Dose: 120 ml Pioglitazone HCl (Actos) 30 mg PO DAILY [facility] Last Admin: 04/28/18 07:41 Dose: 30 mg Ramipril (Altace) 5 mg PO DAILY [facility] Last Admin: 04/28/18 07:42 Dose: 5 mg Sodium Chloride () 5 - 15 ml IV UD PRN PRN Reason: SALINE FLUSH Last Admin: 04/27/18 06:45 Dose: 10 ml Tolterodine Tartrate (Detrol La) 2 mg PO DAILY [facility] Last Admin: 04/28/18 07:42 Dose: 2 mg Medical Necessity - Tobacco Use Smoking Status: Former smoker Assessment/Plan 1. Debility due to mechanical falls CT brain was negative for any acute intracranial pathology PT/OT on board awaiting placement 2. Orthostatic hypotension resolved. encourage adequate oral hydration 3. CAD s/p CABG and stents: on aspirin, plavix 4. Hypertension: on ramipril 5. Type 2 diabetes mellitus: on ISS. on PO Actos. Accuchecks ACHS. 6. Dementia: on aricept 6 Bradycardia: asymptomatic. HR in the high 50s yesterday but has been in the 60s and 70s since. Will continue to monitor DVT prophylaxis; heparin Disposition: awaiting placement Code Visit Inpatient E&M: 61517 Subs Hosp L2
--- NOTE | 2018-04-28 12:44 | PN_ITS ---
Subjective: Patient seen and examined. He had no complaints and felt well. He denied any fever or chills, any cough or chest pain, shortness of breath, abdominal pain, diarrhea or vomiting. Review of systems otherwise negative. Labs and vitals reviewed. He still awaiting placement. Vitals/I&O's: Vital Signs Temp Pulse Resp BP Pulse Ox 97.5 F L 68 18 120/72 97 04/28/18 07:54 04/28/18 07:54 04/28/18 07:54 04/28/18 07:54 04/28/18 07:54 Oxygen Delivery Method Room Air Weight: 179 lb 10.828 oz Body Mass Index (BMI) 27.3 Finger Stick Blood Glucose 103 Orthostatic Vital Signs Start: 04/25/18 02:34 Freq: q24h Status: Active Protocol: Activity Type Activity Date Activity User E-Sign Co-Sign Detail Recorded Client Recorded Date Recorded By Document 04/28/18 03:52 [id number] 04/28/18 03:55 04/28/18 03:52 Orthostatic Vitals Standing -Blood Pressure (90/60-120/80) 128/76 H -Extremity Use Right Arm -Pulse Rate (60-100) 78 Sitting -Blood Pressure (90/60-120/80) 126/76 H -Extremity Use Right Arm -Pulse Rate (60-100) 77 Lying -Blood Pressure (90/60-120/80) 132/87 H -Extremity Use Right Arm -Pulse Rate (60-100) 74 Intake and Output for Last 24 Hours 04/26/18 04/27/18 04/28/18 23:59 23:59 23:59 Intake Total 1580 / 1580 300 / 300 120 / 120 Output Total 200 / 200 Balance 1380 / 1380 300 / 300 120 / 120 General: Alert, Oriented x3, Cooperative HEENT: Atraumatic, PERRLA, EOMI, Normocephalic Oral: Dry Mucosa Neck: Supple, No JVD, Negative Carotid Bruits Lungs: Clear to auscultation, Normal air movement, No rhonchi, No wheeze, No rales Cardiovascular: Regular rate, Regular Rhythm, Normal S1, Normal S2, No murmurs Abdomen: Bowel Sounds Present, Soft, Non Tender, Non-Distended, No Hepato- splenomegaly Extremities: No edema, Capillary Refill Less than 3 Seconds Skin: No rashes, No breakdown Musculoskeletal: No Tenderness to Palpation of Joints or Extremities Lymphatic: No Cervical, Supraclavicular, or Inguinal Adenopathy Neurological: Cranial nerves II-XII grossly intact, Neuro grossly intact Psych/Mental Status: Normal Affect, Appropriate Current Medications Acetaminophen (Tylenol) 650 mg PO Q6H PRN PRN PRN Reason: PAIN Last Admin: 04/28/18 07:50 Dose: 650 mg Aspirin (Ecotrin) 81 mg PO DAILY@0800 [facility] Last Admin: 04/28/18 07:41 Dose: 81 mg Clopidogrel Bisulfate (Plavix) 75 mg PO DAILY [facility] Last Admin: 04/28/18 07:42 Dose: 75 mg Docusate Sodium (Colace) 100 mg PO DAILY PRN PRN Reason: Constipation Donepezil HCl (Aricept) 10 mg PO QHS [facility] Last Admin: 04/27/18 21:38 Dose: 10 mg Ezetimibe (Zetia) 10 mg PO DAILY [facility] Last Admin: 04/28/18 07:42 Dose: 10 mg Escitalopram Oxalate (Lexapro) 10 mg PO DAILY [facility] Last Admin: 04/28/18 07:42 Dose: 10 mg Heparin Sodium (Porcine) (Heparin Na) 5,000 unit SC Q8 [facility] Last Admin: 04/28/18 06:38 Dose: 5,000 unit Magnesium Hydroxide (Milk Of Magnesia) 30 ml PO DAILY PRN PRN PRN Reason: Constipation Nutritional Formula (Lactose Free) (Glucerna Shake) 120 ml PO 4X/DAY [facility] Last Admin: 04/28/18 07:43 Dose: 120 ml Pioglitazone HCl (Actos) 30 mg PO DAILY [facility] Last Admin: 04/28/18 07:41 Dose: 30 mg Ramipril (Altace) 5 mg PO DAILY [facility] Last Admin: 04/28/18 07:42 Dose: 5 mg Sodium Chloride () 5 - 15 ml IV UD PRN PRN Reason: SALINE FLUSH Last Admin: 04/27/18 06:45 Dose: 10 ml Tolterodine Tartrate (Detrol La) 2 mg PO DAILY [facility] Last Admin: 04/28/18 07:42 Dose: 2 mg Medical Necessity - Tobacco Use Smoking Status: Former smoker Assessment/Plan 1. Debility due to mechanical falls * CT brain was negative for any acute intracranial pathology * PT/OT on board * awaiting placement * 2. Orthostatic hypotension * resolved. * encourage adequate oral hydration * 3. CAD s/p CABG and stents: on aspirin, plavix 4. Hypertension: on ramipril 5. Type 2 diabetes mellitus: on ISS. on PO Actos. Accuchecks ACHS. 6. Dementia: on aricept 6 Bradycardia: asymptomatic. HR in the high 50s yesterday but has been in the 60s and 70s since. Will continue to monitor DVT prophylaxis; heparin Disposition: awaiting placement Code Visit Inpatient E&M: 22438 Subs Hosp L2
--- NOTE | 2018-04-28 14:30 | CHAPLAIN ---
Type of Pastoral Visit _x__ Initial Visit ___ Follow-up Visit ___ On-call Visit ___ General Patient Visit ___ Spiritual Assessment ___ Family Conference ___ Bereavement ___ Rapid Response ___ Code Blue ___ Other (describe below) Pastoral Care Referral From _x__ Patient _x__ Family ___ Nurse ___ Physician ___ Hydrogenation Operator ___ Hardboard Grinder ___ Other (describe below) Sacrament/Intervention _x__ Active listening ___ Anointing ___ Scientologist ___ Bereavement ___ Communion _x__ Zenia exploration ___ _x__ Life review _x__ Prayer ___ Reconciliation ___ Sacrament of Sick _x__ Supportive presence ___ Wedding ___ Other (describe below) Pastoral Comments
--- NOTE | 2018-04-28 16:53 | CASEMGMT ---
Social Work Note SUSAN received message from Mary at [facility] stating pt is in observation and she doesn't need to review pt for Level of Care for SNF placement as pt is in observation. SUSAN placed a call to Mary and she confirmed that since pt is in observation, [facility] doesn't need to review Level Of Care and that TCU can submit for pre-cert. SUSAN updated Marquita of this. Per Marquita, TCU is not able to accept pt as they are not taking patients today, tomorrow or Thursday. SUSAN updated pt's of this. SUSAN explained to pt's that pt is walking 200ft contact guard and may possibly get denied SNF placement by pt's insurance. Pt's states that she will have to talk to their daughter to determine discharge plans. Pt's daughter spoke with Nurse Payroll Specialist Luigi and Marquita regarding TCU. Per Marquita she will submit for pre-cert. Plan: TCU pending pre-cert Angie Reyez BASEBALL INSPECTOR AND REPAIRER, HOT SAW HELPER
[2018-04-28] MEDS: Donepezil HCl 10 MG Tablet PO (22:51)
[2018-04-29] VITALS (7 sets, daily range): BP systolic 112–135; BP diastolic 53–73; PULSE 62–78; RESP 16–18; TEMP 36.6–36.9; O2SAT 95–100
[2018-04-29] MEDS: Heparin Injection (Vial) 5,000 UNIT/ML VIAL 5000 UNIT SC ×3 (05:20→21:40)
[2018-04-29] MEDS: Clopidogrel Bisulfate 75 MG Tablet PO (10:17)
[2018-04-29] MEDS: Aspirin E.C. 81 MG Tablet PO (10:17)
[2018-04-29] MEDS: Ramipril 5 MG Capsule PO (10:17)
[2018-04-29] MEDS: Tolterodine Tartrate 2 MG CAP.SA PO (10:17)
[2018-04-29] MEDS: Escitalopram Oxalate 10 MG Tablet PO (10:17)
[2018-04-29] MEDS: Pioglitazone Hydrochloride 30 MG Tablet PO (10:17)
[2018-04-29] MEDS: Ezetimibe 10 MG Tablet PO (10:18)
[2018-04-29] MEDS: Glucerna Shake 120 ML LIQUID PO ×4 (10:20→21:41)
--- NOTE | 2018-04-29 14:00 | CASEMGMT ---
Social Work Note SW spoke with Marquita with [facility] who states she hasn't heard anything from pt's insurance yet. Plan: TCU pending pre-cert Angie Reyez CEREAL POPPER, VAULT TELLER
--- NOTE | 2018-04-29 14:52 | PCM.PN.HOSP ---
Subjective: Patient seen and examined. No active events overnight. He has no complaints. 12 point review of systems otherwise negative. Still awaiting placement. Vitals/I&O's: Vital Signs Temp Pulse Resp BP Pulse Ox 98.5 F 72 16 112/60 100 04/29/18 12:48 04/29/18 12:48 04/29/18 12:48 04/29/18 12:48 04/29/18 12:48 Oxygen Delivery Method Room Air Weight: 179 lb 10.828 oz Body Mass Index (BMI) 27.3 Finger Stick Blood Glucose 103 Orthostatic Vital Signs Start: 04/25/18 02:34 Freq: q24h Status: Active Protocol: Activity Type Activity Date Activity User E-Sign Co-Sign Detail Recorded Client Recorded Date Recorded By Document 04/29/18 05:22 [facility] [id number] 04/29/18 05:29 [facility] 04/29/18 05:22 Orthostatic Vitals Standing -Blood Pressure (90/60-120/80) 112/56 L -Extremity Use Right Arm -Pulse Rate (60-100) 78 Sitting -Blood Pressure (90/60-120/80) 121/63 H -Extremity Use Right Arm -Pulse Rate (60-100) 66 Lying -Blood Pressure (90/60-120/80) 129/68 H -Extremity Use Right Arm -Pulse Rate (60-100) 67 Intake and Output for Last 24 Hours 04/27/18 04/28/18 04/29/18 23:59 23:59 23:59 Intake Total 300 / 300 520 / 520 450 / 450 Balance 300 / 300 520 / 520 450 / 450 General: Alert, Oriented x3, Cooperative HEENT: Atraumatic, PERRLA, EOMI, Normocephalic Oral: Dry Mucosa Neck: Supple, No JVD, Negative Carotid Bruits Lungs: Clear to auscultation, Normal air movement, No rhonchi, No wheeze, No rales Cardiovascular: Regular rate, Regular Rhythm, Normal S1, Normal S2, No murmurs Abdomen: Bowel Sounds Present, Soft, Non Tender, Non-Distended, No Hepato-splenomegaly Extremities: No edema, Capillary Refill Less than 3 Seconds Skin: No rashes, No breakdown Musculoskeletal: No Tenderness to Palpation of Joints or Extremities Lymphatic: No Cervical, Supraclavicular, or Inguinal Adenopathy Neurological: Cranial nerves II-XII grossly intact, Neuro grossly intact Psych/Mental Status: Normal Affect, Appropriate Current Medications Acetaminophen (Tylenol) 650 mg PO Q6H PRN PRN PRN Reason: PAIN Last Admin: 04/28/18 07:50 Dose: 650 mg Aspirin (Ecotrin) 81 mg PO DAILY@0800 [facility] Last Admin: 04/29/18 10:17 Dose: 81 mg Clopidogrel Bisulfate (Plavix) 75 mg PO DAILY [facility] Last Admin: 04/29/18 10:17 Dose: 75 mg Docusate Sodium (Colace) 100 mg PO DAILY PRN PRN Reason: Constipation Donepezil HCl (Aricept) 10 mg PO QHS [facility] Last Admin: 04/28/18 22:51 Dose: 10 mg Ezetimibe (Zetia) 10 mg PO DAILY [facility] Last Admin: 04/29/18 10:18 Dose: 10 mg Escitalopram Oxalate (Lexapro) 10 mg PO DAILY [facility] Last Admin: 04/29/18 10:17 Dose: 10 mg Heparin Sodium (Porcine) (Heparin Na) 5,000 unit SC Q8 [facility] Last Admin: 04/29/18 12:53 Dose: 5,000 unit Magnesium Hydroxide (Milk Of Magnesia) 30 ml PO DAILY PRN PRN PRN Reason: Constipation Nutritional Formula (Lactose Free) (Glucerna Shake) 120 ml PO 4X/DAY [facility] Last Admin: 04/29/18 12:53 Dose: 120 ml Pioglitazone HCl (Actos) 30 mg PO DAILY [facility] Last Admin: 04/29/18 10:17 Dose: 30 mg Ramipril (Altace) 5 mg PO DAILY [facility] Last Admin: 04/29/18 10:17 Dose: 5 mg Sodium Chloride () 5 - 15 ml IV UD PRN PRN Reason: SALINE FLUSH Last Admin: 04/27/18 06:45 Dose: 10 ml Tolterodine Tartrate (Detrol La) 2 mg PO DAILY [facility] Last Admin: 04/29/18 10:17 Dose: 2 mg Medical Necessity - Tobacco Use Smoking Status: Former smoker Assessment/Plan 1. Debility due to mechanical falls CT brain was negative for any acute intracranial pathology PT/OT on board awaiting placement 2. Orthostatic hypotension resolved. encourage adequate oral hydration 3. CAD s/p CABG and stents: on aspirin, plavix 4. Hypertension: on ramipril 5. Type 2 diabetes mellitus: on ISS. on PO Actos. Accuchecks ACHS. 6. Dementia: on aricept 7. Bradycardia: asymptomatic. has resolved. DVT prophylaxis; heparin Disposition: awaiting placement Code Visit Inpatient E&M: 99633 Subs Hosp L2
--- NOTE | 2018-04-29 14:55 | PN_ITS ---
Subjective: Patient seen and examined. No active events overnight. He has no complaints. 12 point review of systems otherwise negative. Still awaiting placement. Vitals/I&O's: Vital Signs Temp Pulse Resp BP Pulse Ox 98.5 F 72 16 112/60 100 04/29/18 12:48 04/29/18 12:48 04/29/18 12:48 04/29/18 12:48 04/29/18 12:48 Oxygen Delivery Method Room Air Weight: 179 lb 10.828 oz Body Mass Index (BMI) 27.3 Finger Stick Blood Glucose 103 Orthostatic Vital Signs Start: 04/25/18 02:34 Freq: q24h Status: Active Protocol: Activity Type Activity Date Activity User E-Sign Co-Sign Detail Recorded Client Recorded Date Recorded By Document 04/29/18 05:22 [facility] [id number] 04/29/18 05:29 [facility] 04/29/18 05:22 Orthostatic Vitals Standing -Blood Pressure (90/60-120/80) 112/56 L -Extremity Use Right Arm -Pulse Rate (60-100) 78 Sitting -Blood Pressure (90/60-120/80) 121/63 H -Extremity Use Right Arm -Pulse Rate (60-100) 66 Lying -Blood Pressure (90/60-120/80) 129/68 H -Extremity Use Right Arm -Pulse Rate (60-100) 67 Intake and Output for Last 24 Hours 04/27/18 04/28/18 04/29/18 23:59 23:59 23:59 Intake Total 300 / 300 520 / 520 450 / 450 Balance 300 / 300 520 / 520 450 / 450 General: Alert, Oriented x3, Cooperative HEENT: Atraumatic, PERRLA, EOMI, Normocephalic Oral: Dry Mucosa Neck: Supple, No JVD, Negative Carotid Bruits Lungs: Clear to auscultation, Normal air movement, No rhonchi, No wheeze, No rales Cardiovascular: Regular rate, Regular Rhythm, Normal S1, Normal S2, No murmurs Abdomen: Bowel Sounds Present, Soft, Non Tender, Non-Distended, No Hepato- splenomegaly Extremities: No edema, Capillary Refill Less than 3 Seconds Skin: No rashes, No breakdown Musculoskeletal: No Tenderness to Palpation of Joints or Extremities Lymphatic: No Cervical, Supraclavicular, or Inguinal Adenopathy Neurological: Cranial nerves II-XII grossly intact, Neuro grossly intact Psych/Mental Status: Normal Affect, Appropriate Current Medications Acetaminophen (Tylenol) 650 mg PO Q6H PRN PRN PRN Reason: PAIN Last Admin: 04/28/18 07:50 Dose: 650 mg Aspirin (Ecotrin) 81 mg PO DAILY@0800 [facility] Last Admin: 04/29/18 10:17 Dose: 81 mg Clopidogrel Bisulfate (Plavix) 75 mg PO DAILY [facility] Last Admin: 04/29/18 10:17 Dose: 75 mg Docusate Sodium (Colace) 100 mg PO DAILY PRN PRN Reason: Constipation Donepezil HCl (Aricept) 10 mg PO QHS [facility] Last Admin: 04/28/18 22:51 Dose: 10 mg Ezetimibe (Zetia) 10 mg PO DAILY [facility] Last Admin: 04/29/18 10:18 Dose: 10 mg Escitalopram Oxalate (Lexapro) 10 mg PO DAILY [facility] Last Admin: 04/29/18 10:17 Dose: 10 mg Heparin Sodium (Porcine) (Heparin Na) 5,000 unit SC Q8 [facility] Last Admin: 04/29/18 12:53 Dose: 5,000 unit Magnesium Hydroxide (Milk Of Magnesia) 30 ml PO DAILY PRN PRN PRN Reason: Constipation Nutritional Formula (Lactose Free) (Glucerna Shake) 120 ml PO 4X/DAY [facility] Last Admin: 04/29/18 12:53 Dose: 120 ml Pioglitazone HCl (Actos) 30 mg PO DAILY [facility] Last Admin: 04/29/18 10:17 Dose: 30 mg Ramipril (Altace) 5 mg PO DAILY [facility] Last Admin: 04/29/18 10:17 Dose: 5 mg Sodium Chloride () 5 - 15 ml IV UD PRN PRN Reason: SALINE FLUSH Last Admin: 04/27/18 06:45 Dose: 10 ml Tolterodine Tartrate (Detrol La) 2 mg PO DAILY [facility] Last Admin: 04/29/18 10:17 Dose: 2 mg Medical Necessity - Tobacco Use Smoking Status: Former smoker Assessment/Plan 1. Debility due to mechanical falls * CT brain was negative for any acute intracranial pathology * PT/OT on board * awaiting placement * 2. Orthostatic hypotension * resolved. * encourage adequate oral hydration * 3. CAD s/p CABG and stents: on aspirin, plavix 4. Hypertension: on ramipril 5. Type 2 diabetes mellitus: on ISS. on PO Actos. Accuchecks ACHS. 6. Dementia: on aricept 7. Bradycardia: asymptomatic. has resolved. DVT prophylaxis; heparin Disposition: awaiting placement Code Visit Inpatient E&M: 41886 Subs Hosp L2
[2018-04-29] MEDS: Acetaminophen 325 MG Tablet 650 MG PO (15:08)
[2018-04-29] MEDS: Donepezil HCl 10 MG Tablet PO (21:40)
[2018-04-30 03:11] VITALS: BP 132/58; PULSE 64; RESP 16; TEMP 36.6; O2SAT 98
--- NOTE | 2018-04-30 06:09 | NURSING ---
Pt combative this AM. While giving heparin SC, pt used other hand to push this nurse away. Unable to give morning meds, perform Ortho VS's or check Blood Glucose. Passing note on to day shift.
[2018-04-30 08:41] VITALS: BP 112/64; PULSE 66; RESP 16; TEMP 36.9; O2SAT 96
[2018-04-30] MEDS: Glucerna Shake 120 ML LIQUID PO (08:48)
[2018-04-30] MEDS: Ramipril 5 MG Capsule PO (08:49)
[2018-04-30] MEDS: Aspirin E.C. 81 MG Tablet PO (08:49)
[2018-04-30] MEDS: Ezetimibe 10 MG Tablet PO (08:49)
[2018-04-30] MEDS: Tolterodine Tartrate 2 MG CAP.SA PO (08:49)
[2018-04-30] MEDS: Pioglitazone Hydrochloride 30 MG Tablet PO (08:49)
[2018-04-30] MEDS: Clopidogrel Bisulfate 75 MG Tablet PO (08:49)
[2018-04-30] MEDS: Escitalopram Oxalate 10 MG Tablet PO (08:49)
--- NOTE | 2018-04-30 10:09 | CASEMGMT ---
Addendum entered by Angie Reyez 04/30/18 14:08: SW updated pt and pt's on approval to go to TCU today. Original Note: Social Work Note SUSAN spoke with Marquita stating pre-cert has been obtained and TCU is requesting pt to be admitted after 1:00pm today. Physician updated. Plan: Pt to discharge to TCU today Angie Reyez [employer], [employer]
--- NOTE | 2018-04-30 10:39 | PCM.TXEXTCAR ---
- Diet 04/24/18 19:59 Diet: Calorie Controlled How many daily calories?: 1800 calorie - Routine Orders/Code Status Enema Type: Fleetz Enema Frequency: Daily PRN Suppository Type: Dulcolax 10mg Suppository Frequency: Daily PRN O2 Liters per Minute: 92 O2 Frequency: PRN - Wound(s) rt side of back Wound Type: Abrasion - Therapies Weight Bearing: Weight bearing as tolerated Physical Therapy: Eval and Treat Occupational Therapy: Eval and Treat - Allergies/Procedures Done in Hospital Allergies/Adverse Reactions: Allergies iodine Allergy (Verified 02/24/18 13:39) Hives Penicillins Adverse Reaction (Verified 02/24/18 13:39) Rash Procedures: None - Type of Care/Length of Stay Estimated LOS: Convalescent Care Less Than 30 days Type of Care Needed: Skilled Rehab Potential: Fair Prognosis: Fair - Additional Orders/Day of Discharge Day of Discharge: 04/30/18 - Dietary and Speech Recommendations Dietitian Recommendations/Changes: Rec liberalize diet as needed to REGULAR to help optimize PO at meals d/t s/s of malnutrition. Will provide ensure pudding or magic cup w/ meals for increased nutrition if consumed. Continue glucerna shake on medpass as PO established at meals. - Follow Up Care Primary Care Physician: Daiana Andrew, TALIB-C [Primary Care Provider] - Please follow up with your Primary Care Physician in: 1 week
--- NOTE | 2018-04-30 10:41 | PCM.DC.SUM ---
Discharge Date and Diagnosis Date of Admission: 04/24/18 Date of Discharge: 04/30/18 - Primary Discharge Diagnosis debility due to mechanical falls - Secondary Discharge Diagnosis Chronic Problems (Last Updated 04/24/18 @ 19:17 by George Pimentel MD) History of CVA (cerebrovascular accident) (Chronic) Pure hypercholesterolemia (Chronic) Atherosclerosis of [place] coronary artery of [place] heart without angina pectoris (Chronic) MACIAS to LAD, aortocoronary left radial artery to obtuse marginal artery, SVG to PDA; GERD (gastroesophageal reflux disease) (Chronic) History of angioplasty (Chronic 11/06/89) Angioplasty and stenting to 70% stenosis in proximal LAD, angioplasty and stenting to proximal diagonal LAD at bifurcation, and atherectomy and stenting to 80% stenosis in mid first diagonal artery in April 2011. 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 No acute process. 2. Chronic left basal ganglia lacunar infarct. 3. Microvascular ischemic changes. Atrophy. Electronically Signed: Matilde Espinoza MD at 18:01 EST Tel , Service support , Abdomen/Pelvis CT 04/24/18 15:58 IMPRESSION: No acute traumatic findings in the abdomen or pelvis. Stable nonacute findings, as above. Electronically Signed: Robby Maguire at 18:00 EST Tel , Service support , Shoulder X-Ray 04/24/18 19:59 IMPRESSION: 1. Osteoporosis. 2. No definite evidence for acute fracture. 3. Degenerative arthropathy. Electronically Signed: Judit Sue MD at 5:30 EST , Service support , Operations: None Procedures: None Summary of Care Provided: The patient is a 78 year old M was admitted with a complaint of frequent falls and dizziness. He fell twice on the day of admission with assisted lightheadedness and dizziness prior to falling. He denied any loss of consciousness had no other symptoms. He sustained a left flank abrasion due to the fall. Initial vitals showed bradycardia and labs were otherwise unremarkable. UA showed no evidence of UTI and CT of the brain and abdomen and pelvis were negative. EKG showed sinus bradycardia. He was admitted and managed for debility due to frequent falls and dizziness and mild dehydration. Patient resuscitated with IV fluids. Orthostatics were initially positive and resolved with IV fluid administration. Patient remained stable and was discharged to the transitional care unit on 04/30/2018. Bradycardia resolved spontaneously during admission. He is to follow-up with his primary care doctor. Patient seen and examined prior to discharge. He had no complaints. He denied any fever, any chills, any cough or chest pain, shortness of breath, abdominal pain, any diarrhea vomiting. Review of systems otherwise negative. Labs and vitals reviewed. Home medications reviewed and reconciled. o/e: Vitals: Vital Signs Height 5 ft 8 in Weight: 179 lb 10.828 oz Weight in Pounds 179.7 lbs Pulse Ox 96 Temperature 98.4 F Pulse Rate [Standing] 78 Pulse Rate [Sitting] 66 Pulse Rate [Lying] 67 Pulse Rate 90 Respiratory Rate 16 Blood Pressure [Standing] 112/56 Blood Pressure [Sitting] 121/63 Blood Pressure [Lying] 129/68 Blood Pressure 112/64 Blood Pressure Position Semi-Fowlers [] General: Alert, Oriented x3, Cooperative HEENT: Atraumatic, PERRLA, EOMI, Normocephalic Oral: Dry Mucosa Neck: Supple, No JVD, Negative Carotid Bruits Lungs: Clear to auscultation, Normal air movement, No rhonchi, No wheeze, No rales Cardiovascular: Regular rate, Regular Rhythm, Normal S1, Normal S2, No murmurs Abdomen: Bowel Sounds Present, Soft, Non Tender, Non-Distended, No Hepato-splenomegaly Extremities: No edema, Capillary Refill Less than 3 Seconds Skin: resolving flank bruises. Musculoskeletal: No Tenderness to Palpation of Joints or Extremities Lymphatic: No Cervical, Supraclavicular, or Inguinal Adenopathy Neurological: Cranial nerves II-XII grossly intact, Neuro grossly intact Psych/Mental Status: Normal Affect, Appropriate Plan as stated above. - Physical Exam Vital Signs Temp Pulse Resp BP Pulse Ox 98.4 F 66 16 112/64 96 04/30/18 08:41 04/30/18 08:41 04/30/18 08:41 04/30/18 08:41 04/30/18 08:41 Oxygen Delivery Method Room Air Weight: 179 lb 10.828 oz Body Mass Index (BMI) 27.3 Finger Stick Blood Glucose 103 Orthostatic Vital Signs Start: 04/25/18 02:34 Freq: q24h Status: Active Protocol: Activity Type Activity Date Activity User E-Sign Co-Sign Detail Recorded Client Recorded Date Recorded By Document 04/29/18 05:22 [facility] [id number] 04/29/18 05:29 [facility] 04/29/18 05:22 Orthostatic Vitals Standing -Blood Pressure (90/60-120/80 mm Hg) 112/56 L -Extremity Use Right Arm -Pulse Rate (60-100 beats/min) 78 Sitting -Blood Pressure (90/60-120/80 mm Hg) 121/63 H -Extremity Use Right Arm -Pulse Rate (60-100 beats/min) 66 Lying -Blood Pressure (90/60-120/80 mm Hg) 129/68 H -Extremity Use Right Arm -Pulse Rate (60-100 beats/min) 67 Intake and Output for Last 24 Hours 04/28/18 04/29/18 04/30/18 23:59 23:59 23:59 Intake Total 520 / 520 450 / 450 400 / 400 Balance 520 / 520 450 / 450 400 / 400 Discharge Diet: Low fat/ Low Cholesterol Discharge Activity: Return to Normal Activity Weight Bearing Status: Weight bearing as tolerated Home Medications: Medications to take at Discharge Aspirin E.C. [Ecotrin] 81 mg PO DAILY@0800 09/15/13 Escitalopram Oxalate [Lexapro] 10 mg PO DAILY 09/15/13 Pioglitazone [Actos] 30 mg PO DAILY 05/22/14 Donepezil HCl [Aricept] 10 mg PO QHS 02/27/16 Oxybutynin [Ditropan] 15 mg PO DAILY 02/27/16 ezetimibe 10 mg tablet 10 mg PO DAILY #90 tab 06/18/17 ramipril 5 mg capsule 5 mg PO DAILY #90 cap 07/28/17 docusate sodium 100 mg capsule 100 mg PO DAILY PRN cap 02/24/18 clopidogrel 75 mg tablet 75 mg PO DAILY #90 tab 03/22/18 Primary Care Physician: Daiana Andrew NP-C [Primary Care Provider] - Please follow up with your Primary Care Physician in: 1 week [facility] Minutes spent on discharge:: 33 Patient Condition:: Stable Medical Necessity - Tobacco Use Smoking Status: Former smoker Meaningful Use Info Meaningful Use Diagnoses (Choose all that apply): None applicable Code Visit Inpatient E&M: 13657 Disch Hosp
--- NOTE | 2018-04-30 10:45 | DS.PCM_ITS ---
Discharge Date and Diagnosis Date of Admission: 04/24/18 Date of Discharge: 04/30/18 - Primary Discharge Diagnosis debility due to mechanical falls - Secondary Discharge Diagnosis Chronic Problems (Last Updated 04/24/18 @ 19:17 by George Pimentel MD) History of CVA (cerebrovascular accident) (Chronic) Pure hypercholesterolemia (Chronic) Atherosclerosis of [place] coronary artery of [place] heart without angina pectoris (Chronic) MACIAS to LAD, aortocoronary left radial artery to obtuse marginal artery, SVG to PDA; GERD (gastroesophageal reflux disease) (Chronic) History of angioplasty (Chronic 11/06/89) Angioplasty and stenting to 70% stenosis in proximal LAD, angioplasty and stenting to proximal diagonal LAD at bifurcation, and atherectomy and stenting to 80% stenosis in mid first diagonal artery in April 2011. 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 No acute process. 2. Chronic left basal ganglia lacunar infarct. 3. Microvascular ischemic changes. Atrophy. Electronically Signed: Matilde Espinoza MD at 18:01 EST Tel , Service support , Abdomen/Pelvis CT 04/24/18 15:58 IMPRESSION: No acute traumatic findings in the abdomen or pelvis. Stable nonacute findings, as above. Electronically Signed: Robby Maguire at 18:00 EST Tel , Service support , Shoulder X-Ray 04/24/18 19:59 IMPRESSION: 1. Osteoporosis. 2. No definite evidence for acute fracture. 3. Degenerative arthropathy. Electronically Signed: Judit Sue MD at 5:30 EST , Service support , Operations: None Procedures: None Summary of Care Provided: The patient is a 78 year old M was admitted with a complaint of frequent falls and dizziness. He fell twice on the day of admission with assisted lightheadedness and dizziness prior to falling. He denied any loss of consciousness had no other symptoms. He sustained a left flank abrasion due to the fall. Initial vitals showed bradycardia and labs were otherwise unremarkable. UA showed no evidence of UTI and CT of the brain and abdomen and pelvis were negative. EKG showed sinus bradycardia. He was admitted and managed for debility due to frequent falls and dizziness and mild dehydration. Patient resuscitated with IV fluids. Orthostatics were initially positive and resolved with IV fluid administration. Patient remained stable and was discharged to the transitional care unit on 04/30/2018. Bradycardia resolved spontaneously during admission. He is to follow-up with his primary care doctor. Patient seen and examined prior to discharge. He had no complaints. He denied any fever, any chills, any cough or chest pain, shortness of breath, abdominal pain, any diarrhea vomiting. Review of systems otherwise negative. Labs and vitals reviewed. Home medications reviewed and reconciled. o/e: Vitals: Vital Signs Height 5 ft 8 in Weight: 179 lb 10.828 oz Weight in Pounds 179.7 lbs Pulse Ox 96 Temperature 98.4 F Pulse Rate [Standing] 78 Pulse Rate [Sitting] 66 Pulse Rate [Lying] 67 Pulse Rate 90 Respiratory Rate 16 Blood Pressure [Standing] 112/56 Blood Pressure [Sitting] 121/63 Blood Pressure [Lying] 129/68 Blood Pressure 112/64 Blood Pressure Position Semi-Fowlers [] General: Alert, Oriented x3, Cooperative HEENT: Atraumatic, PERRLA, EOMI, Normocephalic Oral: Dry Mucosa Neck: Supple, No JVD, Negative Carotid Bruits Lungs: Clear to auscultation, Normal air movement, No rhonchi, No wheeze, No rales Cardiovascular: Regular rate, Regular Rhythm, Normal S1, Normal S2, No murmurs Abdomen: Bowel Sounds Present, Soft, Non Tender, Non-Distended, No Hepato- splenomegaly Extremities: No edema, Capillary Refill Less than 3 Seconds Skin: resolving flank bruises. Musculoskeletal: No Tenderness to Palpation of Joints or Extremities Lymphatic: No Cervical, Supraclavicular, or Inguinal Adenopathy Neurological: Cranial nerves II-XII grossly intact, Neuro grossly intact Psych/Mental Status: Normal Affect, Appropriate Plan as stated above. - Physical Exam Vital Signs Temp Pulse Resp BP Pulse Ox 98.4 F 66 16 112/64 96 04/30/18 08:41 04/30/18 08:41 04/30/18 08:41 04/30/18 08:41 04/30/18 08:41 Oxygen Delivery Method Room Air Weight: 179 lb 10.828 oz Body Mass Index (BMI) 27.3 Finger Stick Blood Glucose 103 Orthostatic Vital Signs Start: 04/25/18 02:34 Freq: q24h Status: Active Protocol: Activity Type Activity Date Activity User E-Sign Co-Sign Detail Recorded Client Recorded Date Recorded By Document 04/29/18 05:22 [facility] [id number] 04/29/18 05:29 [facility] 04/29/18 05:22 Orthostatic Vitals Standing -Blood Pressure (90/60-120/80 mm Hg) 112/56 L -Extremity Use Right Arm -Pulse Rate (60-100 beats/min) 78 Sitting -Blood Pressure (90/60-120/80 mm Hg) 121/63 H -Extremity Use Right Arm -Pulse Rate (60-100 beats/min) 66 Lying -Blood Pressure (90/60-120/80 mm Hg) 129/68 H -Extremity Use Right Arm -Pulse Rate (60-100 beats/min) 67 Intake and Output for Last 24 Hours 04/28/18 04/29/18 04/30/18 23:59 23:59 23:59 Intake Total 520 / 520 450 / 450 400 / 400 Balance 520 / 520 450 / 450 400 / 400 Discharge Diet: Low fat/ Low Cholesterol Discharge Activity: Return to Normal Activity Weight Bearing Status: Weight bearing as tolerated Home Medications: Medications to take at Discharge Aspirin E.C. [Ecotrin] 81 mg PO DAILY@0800 09/15/13 Escitalopram Oxalate [Lexapro] 10 mg PO DAILY 09/15/13 Pioglitazone [Actos] 30 mg PO DAILY 05/22/14 Donepezil HCl [Aricept] 10 mg PO QHS 02/27/16 Oxybutynin [Ditropan] 15 mg PO DAILY 02/27/16 ezetimibe 10 mg tablet 10 mg PO DAILY #90 tab 06/18/17 ramipril 5 mg capsule 5 mg PO DAILY #90 cap 07/28/17 docusate sodium 100 mg capsule 100 mg PO DAILY PRN cap 02/24/18 clopidogrel 75 mg tablet 75 mg PO DAILY #90 tab 03/22/18 Primary Care Physician: Daiana Andrew NP-C [Primary Care Provider] - Please follow up with your Primary Care Physician in: 1 week Disposition: [facility] Minutes spent on discharge:: 33 Patient Condition:: Stable Medical Necessity - Tobacco Use Smoking Status: Former smoker Meaningful Use Info Meaningful Use Diagnoses (Choose all that apply): None applicable Code Visit Inpatient E&M: 61597 Disch Hosp
[2018-04-30 10:53] VITALS: PULSE 90
[2018-04-30] MEDS: Magnesium Hydroxide 30 ML UDC PO (11:05)
[2018-04-30 11:45] LABS: Bedside Glucose 89 mg/dL (70-110)
[2018-04-30] MEDS: Heparin Injection (Vial) 5,000 UNIT/ML VIAL 5000 UNIT SC (13:55)
[2018-04-30 14:14] VITALS: BP 82/41; PULSE 71; RESP 16; TEMP 36.8; O2SAT 97
[2018-04-30] MEDS: 0.9% NaCl Peripheral Flush Adult/Peds IV (14:51)
[2018-04-30] MEDS: Acetaminophen 325 MG Tablet 650 MG PO (14:56)
[2018-04-30 15:39] VITALS: BP 100/58; PULSE 66; RESP 18; TEMP 37; O2SAT 100
[2018-04-30 15:51] LABS: Bedside Glucose 110 mg/dL (70-110)
--- NOTE | 2018-04-30 15:54 | NURSING ---
report called to Daiana BOO in TCU.
== END 2018-04-30 16:12 | disposition skilled nursing facility (03) ==
LOC: ED 16:14 → MS3 19:17
PROVIDERS: Family Medicine; Admitting Provider Hospitalist; Emergency Provider Emergency Medicine; Family Provider Nurse Practitioner; PCP Nurse Practitioner; Referring Provider Hospitalist; Visit Provider Student in an Organized Health Care Education/Training Program
DX: R42 Dizziness and giddiness (principal); H35.30 Unspecified macular degeneration; K21.9 Gastro-esophageal reflux disease without esophagitis; E78.00 Pure hypercholesterolemia, unspecified; F03.90 Unspecified dementia, unspecified severity, without behavioral disturbance, psychotic disturbance, mood disturbance, and anxiety; I25.10 Atherosclerotic heart disease of native coronary artery without angina pectoris; S30.1XXA Contusion of abdominal wall, initial encounter; W19.XXXA Unspecified fall, initial encounter; Y93.9 Activity, unspecified; Y92.9 Unspecified place or not applicable; N18.3 Chronic kidney disease, stage 3 (moderate); E11.22 Type 2 diabetes mellitus with diabetic chronic kidney disease; Z79.82 Long term (current) use of aspirin; Z79.899 Other long term (current) drug therapy; Z79.02 Long term (current) use of antithrombotics/antiplatelets; Z95.1 Presence of aortocoronary bypass graft; Z86.73 Personal history of transient ischemic attack (TIA), and cerebral infarction without residual deficits; J45.20 Mild intermittent asthma, uncomplicated; Z87.891 Personal history of nicotine dependence
CPT/HCPCS: 36415; 70450; 73030; 74177; 80048; 81001; 82962; 83036; 84443; 85025; 93005; 96360; 96361; 96372; 97110; 97161; 97166; 97530; 97802; 99218; 99285; J7030; J7040; Q9967; A4216; G0378

== ENCOUNTER 2018-04-30 16:25 | Inpatient (IN) | payer MEDICARE, SELFPAY ==
[2018-04-24 19:59] VITALS: BMI 27.3
--- NOTE | 2018-04-30 16:38 | NURSING ---
pt arrived from [facility] via [facility] at 1630
[2018-04-30 16:48] VITALS: BP 103/53; PULSE 66; RESP 16; TEMP 36.4; O2SAT 97
[2018-04-30 16:59] VITALS: BMI 29.0
[2018-04-30 17:06] VITALS: BMI 29.0
[2018-04-30 17:10] LABS: Bedside Glucose 100 mg/dL (70-110)
--- NOTE | 2018-04-30 18:37 | PCM.HP.STD ---
Problem List (1) Fall Status: Acute (2) Dizziness Status: Acute (3) Debility Status: Acute (4) Orthostatic hypotension Status: Acute (5) Dehydration Status: Acute (6) Vascular dementia Status: Chronic (7) Stroke Status: Chronic (8) Coronary artery disease Status: Chronic (9) Diabetes mellitus Status: Chronic (10) Hyperlipidemia Status: Chronic (11) Hypothyroidism Status: Chronic (12) Chronic kidney disease Status: Chronic (13) Depression Status: Chronic (14) Overactive bladder Status: Chronic (15) GERD (gastroesophageal reflux disease) Status: Chronic (16) Nephrolithiasis Status: Chronic History of Present Illness Date of Admission: 04/30/18 Chief Complaint: Here for rehabilitation, strengthening, prior to discharge home with spouse. The patient is a 78 year old Male with below past medical history presented to [facility] Emergency Department 04/24/2018 with frequent falls. 04/24/2018 CT brain chronic left basal ganglia lacunar infarct, microvascular changes, atrophy. 04/24/2018 CT abdomen/pelvis negative. 04/24/2018 EKG sinus bradycardia, otherwise normal EKG. Dizziness, falls to left, chronic dizziness. Fell in AM, unable to get up. Back pain, abdominal pain. Cr 1.33, UA negative. 04/24/2018 Admit to Hospital. Gentle IV fluids, cycle cardiac enzymes. Consult PT/OT. 04/24/2018 X-ray right shoulder showed osteoporosis, severe osteoarthritis, negative for fracture. 04/25/2018 Repeat orthostatic vital signs. A1c 6.2, Diabetes well controlled. Continue IV fluids. 04/26/2018 Orthostatic vital signs POSITIVE. 04/27/2018 Orthostatic hypotension resolving with IV fluids. Consider Fludrocortisone. 04/28/2018 Encourage oral fluid hydration. 04/30/2018 Admit to TCU with debility, here for rehabilitation, strengthening, prior to discharge home with spouse. Past Medical History Past Medical History (Chronic Problems): Chronic Problems (Last Updated 04/24/18 @ 19:17 by George Pimentel MD) Vascular dementia (Chronic) Stroke (Chronic) Coronary artery disease (Chronic) Diabetes mellitus (Chronic) Hyperlipidemia (Chronic) Hypothyroidism (Chronic) Chronic kidney disease (Chronic) Depression (Chronic) Overactive bladder (Chronic) History of CVA (cerebrovascular accident) (Chronic) Pure hypercholesterolemia (Chronic) Atherosclerosis of [place] coronary artery of [place] heart without angina pectoris (Chronic) MACIAS to LAD, aortocoronary left radial artery to obtuse marginal artery, SVG to PDA; GERD (gastroesophageal reflux disease) (Chronic) History of angioplasty (Chronic 11/06/89) Angioplasty and stenting to 70% stenosis in proximal LAD, angioplasty and stenting to proximal diagonal LAD at bifurcation, and atherectomy and stenting to 80% stenosis in mid first diagonal artery in April 2011. 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) MACIAS to LAD, aortocoronary left radial artery to obtuse marginal artery, SVG to PDA H/O percutaneous transluminal coronary angioplasty (Chronic ~05/13/11) stent to diagonal 1 History of cardiac catheterization (Chronic ~03/2002) 03/28,06/28 DM2 (diabetes mellitus, type 2) (Chronic) CKD (chronic kidney disease) stage 3, GFR 30-59 ml/min (Chronic) Dementia (Chronic) Mild intermittent asthma (Chronic) Nephrolithiasis (Chronic) Medical History: Medical History (Last Updated 04/24/18 @ 19:17 by George Pimentel MD) Pure hypercholesterolemia (Chronic) E78.00 Atherosclerosis of [place] coronary artery of [place] heart without angina pectoris (Chronic) I25.10 MACIAS to LAD, aortocoronary left radial artery to obtuse marginal artery, SVG to PDA; GERD (gastroesophageal reflux disease) (Chronic) K21.9 DM2 (diabetes mellitus, type 2) (Chronic) E11.9 CKD (chronic kidney disease) stage 3, GFR 30-59 ml/min (Chronic) Dementia (Chronic) F03.90 Mild intermittent asthma (Chronic) J45.20 Nephrolithiasis (Chronic) History of Gerard's esophagus Z87.19 History of asthma Z87.09 History of irritable bowel syndrome Z87.19 Hypothyroidism E03.9 Allergies iodine Allergy (Verified 02/24/18 13:39) Hives Penicillins Adverse Reaction (Verified 02/24/18 13:39) Rash Home Medications: Ambulatory Orders Medication Instructions Recorded Aspirin E.C. [Ecotrin] 81 mg PO DAILY@0800 09/15/13 Escitalopram Oxalate [Lexapro] 10 mg PO DAILY 09/15/13 Pioglitazone [Actos] 30 mg PO DAILY 09/15/13 Donepezil HCl [Aricept] 10 mg PO QHS 02/27/16 Oxybutynin [Ditropan] 15 mg PO DAILY 02/27/16 docusate sodium 100 mg capsule 100 mg PO DAILY PRN cap 02/24/18 Clopidogrel Bisulfate [Plavix] 75 mg PO DAILY 04/30/18 Ezetimibe [Zetia] 10 mg PO DAILY 04/30/18 Ramipril 5 mg PO DAILY 04/30/18 Surgical History: Surgical History (Last Updated 02/24/18 @ 14:14 by Gayle Humphrey) History of angioplasty (Chronic) Onset Date: 11/06/89 Z98.62 Angioplasty and stenting to 70% stenosis in proximal LAD, angioplasty and stenting to proximal diagonal LAD at bifurcation, and atherectomy and stenting to 80% stenosis in mid first diagonal artery in April 2011. S/P CABG x 3 (Chronic) Onset Date: 05/09/02 Z95.1 MACIAS to LAD, aortocoronary left radial artery to obtuse marginal artery, SVG to PDA H/O percutaneous transluminal coronary angioplasty (Chronic) Onset Date: ~05/13/11 Z98.61 stent to diagonal 1 History of cardiac catheterization (Chronic) Onset Date: ~03/2002 Z98.890 03/28,06/28 History of colon resection Onset Date: 09/15/13 Z90.49 History of hemorrhoidectomy Z98.890 History of right inguinal hernia repair Z98.890, Z87.19 History of squamous cell carcinoma excision Onset Date: 10/23/11 Z98.890, Z85.9 left protestant with rhomboid transposition skin flap reconstruction History of tonsillectomy Z90.89 History of ureter stent Onset Date: ~07/2008 Surgical History: coronary bypass surgery - x 3., herniorrhaphy - Hiatal., tonsillectomy, - - Cardiac stent. Psychiatric History: Depression Lives: Spouse/ Significant Other Smoking Status: Former smoker Tobacco Use: Non-smoker Alcohol: None Drugs: None - *Family History Maternal Family History: Family History (Last Updated 02/24/18 @ 13:42 by Gayle Humphrey) Father CVA (cerebral vascular accident) Brother Heart disease History Items: - - No stroke Paternal Family History: Family History (Last Updated 02/24/18 @ 13:42 by Gayle Humphrey) Father CVA (cerebral vascular accident) Brother Heart disease History Items: - - No stroke Review of Systems Constitutional: Denies: Chills, Fever, Weight Change HEENT: Denies: Head Aches, Sinus Congestion, Sinus Drainage Cardiovascular: Denies: Chest Pain, Palpitations Respiratory: Denies: Cough, Shortness of breath at rest, Sputum production Gastrointestinal: Denies: Abdominal Pain, Nausea, Vomiting Genitourinary: Denies: Dysuria Musculoskeletal: Denies: Joint Pain, Joint Tenderness Skin: Denies: Rash, Wounds Neurological: Denies: Numbness, Tingling, Focal weakness Psychiatric: Denies: Anxiety, Depression, Homicidal Ideations, Suicidal Ideations Hematologic/ Lymphatic: Denies: Easy Bruising, Easy Bleeding VTE Information - Inpt Only VTE Present on Admission: No VTE Mechan Device Prophylaxis: Knee High ANNA MARIE Hose VTE Pharm Prophylaxis ordered?: Yes Patient Problems: Active and Suspected Problems (Last Updated 04/24/18 @ 19:17 by George Pimentel MD) Fall (Acute) Dizziness (Acute) Debility (Acute) Orthostatic hypotension (Acute) Dehydration (Acute) - Physical Exam General: Alert, Oriented x3, Cooperative HEENT: Atraumatic, PERRLA, EOMI, Normocephalic Neck: Supple, No JVD, Negative Carotid Bruits Lungs: Clear to auscultation, Normal air movement Cardiovascular: Regular rate, No murmurs Abdomen: Bowel Sounds Present, Soft, Non Tender Extremities: No edema, Capillary Refill Less than 3 Seconds Skin: No rashes, No breakdown Musculoskeletal: No Tenderness to Palpation of Joints or Extremities Neurological: Cranial nerves II-XII grossly intact Psych/Mental Status: Normal Affect, Appropriate Vital Signs Temp Pulse Resp BP Pulse Ox 97.5 F L 66 16 103/53 L 97 04/30/18 16:48 04/30/18 16:48 04/30/18 16:48 04/30/18 16:48 04/30/18 16:48 Oxygen Delivery Method Room Air Weight: 83.9 kg Body Mass Index (BMI) 29.0 Finger Stick Blood Glucose 103 POC Glucose 04/30/18 17:05 POC Glucose 100 Assessment/Plan All Active Problems (Last Updated 04/24/18 @ 19:17 by George Pimentel MD) Fall (Acute) Dizziness (Acute) Debility (Acute) Orthostatic hypotension (Acute) Dehydration (Acute) 78 year old male with below past medical history hospitalized for fall secondary to dizziness from orthostatic hypotension, complicated by acute on chronic kidney failure, admitted to TCU with debility, here for rehabilitation, strengthening, prior to discharge home with spouse. Debility - PT/OT. Pain - Tylenol 1000MG Q6H PRN mild pain. Bowel - Miralax 17GM daily, Senna/colace 1 tablet BID, Dulcolax 10MG SC daily PRN. Pneumonia vaccination - Administer Prevnar 13 and/or Pneumovax 23 as necessary. DVT prophylaxis - Lovenox 40MG SC daily. Stroke - Aspirin 81MG daily, Plavix 75MG daily. Vascular Dementia(Mild) - Donepezil 10MG QHS. Depression - Lexapro 10MG daily, resident doing well with chronic custodial use, GDR clinically contraindicated. Hyperlipidemia - Zetia 10MG daily. Nutrition - Glucerna 120ML 4x/day. Diabetes Mellitus II - Goal A1c < 7.9, A1c 6.2, Pioglitazone 30MG daily. Hypertension - Ramipril 5MG daily. Overactive Bladder - Tolterodine 2MG daily.
--- NOTE | 2018-04-30 18:45 | HP.PCM_ITS ---
Problem List (1) Fall Status: Acute (2) Dizziness Status: Acute (3) Debility Status: Acute (4) Orthostatic hypotension Status: Acute (5) Dehydration Status: Acute (6) Vascular dementia Status: Chronic (7) Stroke Status: Chronic (8) Coronary artery disease Status: Chronic (9) Diabetes mellitus Status: Chronic (10) Hyperlipidemia Status: Chronic (11) Hypothyroidism Status: Chronic (12) Chronic kidney disease Status: Chronic (13) Depression Status: Chronic (14) Overactive bladder Status: Chronic (15) GERD (gastroesophageal reflux disease) Status: Chronic (16) Nephrolithiasis Status: Chronic History of Present Illness Date of Admission: 04/30/18 Chief Complaint: Here for rehabilitation, strengthening, prior to discharge home with spouse. The patient is a 78 year old Male with below past medical history presented to [facility] Emergency Department 04/24/2018 with frequent falls. 04/24/2018 CT brain chronic left basal ganglia lacunar infarct, microvascular changes, atrophy. 04/24/2018 CT abdomen/pelvis negative. 04/24/2018 EKG sinus bradycardia, otherwise normal EKG. Dizziness, falls to left, chronic dizziness. Fell in AM, unable to get up. Back pain, abdominal pain. Cr 1.33, UA negative. 04/24/2018 Admit to Hospital. Gentle IV fluids, cycle cardiac enzymes. Consult PT/OT. 04/24/2018 X-ray right shoulder showed osteoporosis, severe osteoarthritis, negative for fracture. 04/25/2018 Repeat orthostatic vital signs. A1c 6.2, Diabetes well controlled. Continue IV fluids. 04/26/2018 Orthostatic vital signs POSITIVE. 04/27/2018 Orthostatic hypotension resolving with IV fluids. Consider Fludrocortisone. 04/28/2018 Encourage oral fluid hydration. 04/30/2018 Admit to TCU with debility, here for rehabilitation, strengthening, prior to discharge home with spouse. Past Medical History Past Medical History (Chronic Problems): Chronic Problems (Last Updated 04/24/18 @ 19:17 by George Pimentel MD) Vascular dementia (Chronic) Stroke (Chronic) Coronary artery disease (Chronic) Diabetes mellitus (Chronic) Hyperlipidemia (Chronic) Hypothyroidism (Chronic) Chronic kidney disease (Chronic) Depression (Chronic) Overactive bladder (Chronic) History of CVA (cerebrovascular accident) (Chronic) Pure hypercholesterolemia (Chronic) Atherosclerosis of [place] coronary artery of [place] heart without angina pectoris (Chronic) MACIAS to LAD, aortocoronary left radial artery to obtuse marginal artery, SVG to PDA; GERD (gastroesophageal reflux disease) (Chronic) History of angioplasty (Chronic 11/06/89) Angioplasty and stenting to 70% stenosis in proximal LAD, angioplasty and stenting to proximal diagonal LAD at bifurcation, and atherectomy and stenting to 80% stenosis in mid first diagonal artery in April 2011. 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) MACIAS to LAD, aortocoronary left radial artery to obtuse marginal artery, SVG to PDA H/O percutaneous transluminal coronary angioplasty (Chronic ~05/13/11) stent to diagonal 1 History of cardiac catheterization (Chronic ~03/2002) 03/28,06/28 DM2 (diabetes mellitus, type 2) (Chronic) CKD (chronic kidney disease) stage 3, GFR 30-59 ml/min (Chronic) Dementia (Chronic) Mild intermittent asthma (Chronic) Nephrolithiasis (Chronic) Medical History: Medical History (Last Updated 04/24/18 @ 19:17 by George Pimentel MD) Pure hypercholesterolemia (Chronic) E78.00 Atherosclerosis of [place] coronary artery of [place] heart without angina pectoris (Chronic) I25.10 MACIAS to LAD, aortocoronary left radial artery to obtuse marginal artery, SVG to PDA; GERD (gastroesophageal reflux disease) (Chronic) K21.9 DM2 (diabetes mellitus, type 2) (Chronic) E11.9 CKD (chronic kidney disease) stage 3, GFR 30-59 ml/min (Chronic) Dementia (Chronic) F03.90 Mild intermittent asthma (Chronic) J45.20 Nephrolithiasis (Chronic) History of Gerard's esophagus Z87.19 History of asthma Z87.09 History of irritable bowel syndrome Z87.19 Hypothyroidism E03.9 Allergies iodine Allergy (Verified 02/24/18 13:39) Hives Penicillins Adverse Reaction (Verified 02/24/18 13:39) Rash Home Medications: Ambulatory Orders Medication Instructions Recorded Aspirin E.C. [Ecotrin] 81 mg PO DAILY@0800 09/15/13 Escitalopram Oxalate [Lexapro] 10 mg PO DAILY 09/15/13 Pioglitazone [Actos] 30 mg PO DAILY 09/15/13 Donepezil HCl [Aricept] 10 mg PO QHS 02/27/16 Oxybutynin [Ditropan] 15 mg PO DAILY 02/27/16 docusate sodium 100 mg capsule 100 mg PO DAILY PRN cap 02/24/18 Clopidogrel Bisulfate [Plavix] 75 mg PO DAILY 04/30/18 Ezetimibe [Zetia] 10 mg PO DAILY 04/30/18 Ramipril 5 mg PO DAILY 04/30/18 Surgical History: Surgical History (Last Updated 02/24/18 @ 14:14 by Gayle Humphrey) History of angioplasty (Chronic) Onset Date: 11/06/89 Z98.62 Angioplasty and stenting to 70% stenosis in proximal LAD, angioplasty and stenting to proximal diagonal LAD at bifurcation, and atherectomy and stenting to 80% stenosis in mid first diagonal artery in April 2011. S/P CABG x 3 (Chronic) Onset Date: 05/09/02 Z95.1 MACIAS to LAD, aortocoronary left radial artery to obtuse marginal artery, SVG to PDA H/O percutaneous transluminal coronary angioplasty (Chronic) Onset Date: ~05/13/11 Z98.61 stent to diagonal 1 History of cardiac catheterization (Chronic) Onset Date: ~03/2002 Z98.890 03/28,06/28 History of colon resection Onset Date: 09/15/13 Z90.49 History of hemorrhoidectomy Z98.890 History of right inguinal hernia repair Z98.890, Z87.19 History of squamous cell carcinoma excision Onset Date: 10/23/11 Z98.890, Z85.9 left pentecostal with rhomboid transposition skin flap reconstruction History of tonsillectomy Z90.89 History of ureter stent Onset Date: ~07/2008 Surgical History: coronary bypass surgery - x 3., herniorrhaphy - Hiatal., tonsillectomy, - - Cardiac stent. Psychiatric History: Depression Lives: Spouse/ Significant Other Smoking Status: Former smoker Tobacco Use: Non-smoker Alcohol: None Drugs: None - *Family History Maternal Family History: Family History (Last Updated 02/24/18 @ 13:42 by Gayle Humphrey) Father CVA (cerebral vascular accident) Brother Heart disease History Items: - - No stroke Paternal Family History: Family History (Last Updated 02/24/18 @ 13:42 by Gayle Humphrey) Father CVA (cerebral vascular accident) Brother Heart disease History Items: - - No stroke Review of Systems Constitutional: Denies: Chills, Fever, Weight Change HEENT: Denies: Head Aches, Sinus Congestion, Sinus Drainage Cardiovascular: Denies: Chest Pain, Palpitations Respiratory: Denies: Cough, Shortness of breath at rest, Sputum production Gastrointestinal: Denies: Abdominal Pain, Nausea, Vomiting Genitourinary: Denies: Dysuria Musculoskeletal: Denies: Joint Pain, Joint Tenderness Skin: Denies: Rash, Wounds Neurological: Denies: Numbness, Tingling, Focal weakness Psychiatric: Denies: Anxiety, Depression, Homicidal Ideations, Suicidal Ideations Hematologic/ Lymphatic: Denies: Easy Bruising, Easy Bleeding VTE Information - Inpt Only VTE Present on Admission: No VTE Mechan Device Prophylaxis: Knee High ANNA MARIE Hose VTE Pharm Prophylaxis ordered?: Yes Patient Problems: Active and Suspected Problems (Last Updated 04/24/18 @ 19:17 by George Pimentel MD) Fall (Acute) Dizziness (Acute) Debility (Acute) Orthostatic hypotension (Acute) Dehydration (Acute) - Physical Exam General: Alert, Oriented x3, Cooperative HEENT: Atraumatic, PERRLA, EOMI, Normocephalic Neck: Supple, No JVD, Negative Carotid Bruits Lungs: Clear to auscultation, Normal air movement Cardiovascular: Regular rate, No murmurs Abdomen: Bowel Sounds Present, Soft, Non Tender Extremities: No edema, Capillary Refill Less than 3 Seconds Skin: No rashes, No breakdown Musculoskeletal: No Tenderness to Palpation of Joints or Extremities Neurological: Cranial nerves II-XII grossly intact Psych/Mental Status: Normal Affect, Appropriate Vital Signs Temp Pulse Resp BP Pulse Ox 97.5 F L 66 16 103/53 L 97 04/30/18 16:48 04/30/18 16:48 04/30/18 16:48 04/30/18 16:48 04/30/18 16:48 Oxygen Delivery Method Room Air Weight: 83.9 kg Body Mass Index (BMI) 29.0 Finger Stick Blood Glucose 103 POC Glucose 04/30/18 17:05 POC Glucose 100 Assessment/Plan All Active Problems (Last Updated 04/24/18 @ 19:17 by George Pimentel MD) Fall (Acute) Dizziness (Acute) Debility (Acute) Orthostatic hypotension (Acute) Dehydration (Acute) 78 year old male with below past medical history hospitalized for fall secondary to dizziness from orthostatic hypotension, complicated by acute on chronic kidney failure, admitted to TCU with debility, here for rehabilitation, strengthening, prior to discharge home with spouse. * Debility - PT/OT. * Pain - Tylenol 1000MG Q6H PRN mild pain. * Bowel - Miralax 17GM daily, Senna/colace 1 tablet BID, Dulcolax 10MG NC daily PRN. * Pneumonia vaccination - Administer Prevnar 13 and/or Pneumovax 23 as necessary. * DVT prophylaxis - Lovenox 40MG SC daily. * Stroke - Aspirin 81MG daily, Plavix 75MG daily. * Vascular Dementia(Mild) - Donepezil 10MG QHS. 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 * Hyperlipidemia - Zetia 10MG daily. * Nutrition - Glucerna 120ML 4x/day. * Diabetes Mellitus II - Goal A1c < 7.9, A1c 6.2, Pioglitazone 30MG daily. * Hypertension - Ramipril 5MG daily. * Overactive Bladder - Tolterodine 2MG daily.
[2018-04-30] MEDS: Glucerna Shake 120 ML LIQUID PO (19:27)
[2018-04-30 21:06] LABS: Bedside Glucose 165 mg/dL (70-110)
[2018-04-30] MEDS: Donepezil HCl 10 MG Tablet PO (21:24)
[2018-05-01] MEDS: Polyethylene Glycol 3350 17 GM PACKET PO (06:29)
[2018-05-01 06:31] LABS: Bedside Glucose 83 mg/dL (70-110)
[2018-05-01] MEDS: Glucerna Shake 120 ML LIQUID PO ×4 (06:39→20:02)
[2018-05-01] MEDS: Ezetimibe 10 MG Tablet PO (06:41)
[2018-05-01] MEDS: Pioglitazone Hydrochloride 30 MG Tablet PO (06:41)
[2018-05-01] MEDS: Tolterodine Tartrate 2 MG CAP.SA PO (06:41)
[2018-05-01] MEDS: Escitalopram Oxalate 10 MG Tablet PO (06:41)
[2018-05-01 06:42] VITALS: O2SAT 95
[2018-05-01] MEDS: Senna/Docusate Sodium 1 Tablet PO ×2 (06:42→17:51)
[2018-05-01] MEDS: Ramipril 5 MG Capsule PO (06:42)
[2018-05-01] MEDS: Clopidogrel Bisulfate 75 MG Tablet PO (06:54)
[2018-05-01] MEDS: Enoxaparin 40 MG/0.4 ML Syringe SC (06:54)
[2018-05-01 07:49] LABS: Absolute Neutrophil Count 3.2 X10^3/uL (2.0-7.7); Basophil# 0.02 X10^3/uL; Basophil% 0.4 % (0-1); Eosinophil# 0.24 X10^3/uL; Eosinophils% 4.4 % (0-5); Hemoglobin 11.4 g/dl (13.0-16.5); Lymphocyte % 27.4 % (19-41); Mean Corp Hgb Conc 30.8 g/gl (32-36); Mean Corpuscular Hgb 27.9 pg (27.0-32.0); Mean Corpuscular Volume 90.7 fL (80-94); Monocyte# 0.54 X10^3/uL; Monocyte% 9.9 % (0-10); Neutrophil # 3.18 X10^3/uL (2.7-7.7); Neutrophil % 57.9 % (47-70); Platelet Count 162 K/mm3 (150-450); RBC Distribution Width CV 15.2 % (11.6-14.6); RBC Distribution Width SD 50.6 fl (35.1-43.9); Red Blood Count 4.08 M/mm3 (4.6-6.2); White Blood Count 5.5 K/mm3 (4.4-11.0)
[2018-05-01 07:50] LABS: POSITIVE COUNT NO; POSITIVE DIFFERENTIAL NO; POSITIVE MORPHOLOGY NO
[2018-05-01 07:56] LABS: Anion Gap 6 (5-15); BUN 18 mg/dL (7-18); BUN/Creat Ratio 12.6 RATIO (10-20); Calcium,Total 8.4 mg/dL (8.5-10.1); Chloride 107 mmol/L (98-107); Creatinine, Serum 1.43 mg/dL (0.70-1.30); EST Glomerular Filtration Rate 51 mL/min (>60); Est Glom Filt Rate - Afr Amer 61 mL/min (>60); Estimated Creatinine Clearance 39.16 ml/min; Glucose 107 mg/dL (74-106); Potassium 4.2 mmol/L (3.5-5.1); Sodium Level 141 mmol/L (136-145)
[2018-05-01] MEDS: Aspirin E.C. 81 MG Tablet PO (08:00)
[2018-05-01 11:06] LABS: Bedside Glucose 131 mg/dL (70-110)
[2018-05-01] MEDS: Tuberculin,Purif.prot.deriv. 50 TU/ML Vial 5 ML ID (12:39)
[2018-05-01] MEDS: 0.9% Normal Saline 1,000 ML 60 ML IV (15:07)
[2018-05-01 16:00] VITALS: BP 89/47; PULSE 68; RESP 18; TEMP 37.1; O2SAT 98
[2018-05-01 16:56] LABS: Bedside Glucose 156 mg/dL (70-110)
[2018-05-01] MEDS: Donepezil HCl 10 MG Tablet PO (20:04)
[2018-05-01 21:06] LABS: Bedside Glucose 102 mg/dL (70-110)
[2018-05-02 06:46] LABS: Bedside Glucose 87 mg/dL (70-110)
[2018-05-02 07:09] VITALS: O2SAT 96
[2018-05-02 07:42] LABS: Anion Gap 7 (5-15); BUN 18 mg/dL (7-18); BUN/Creat Ratio 13.8 RATIO (10-20); Chloride 109 mmol/L (98-107); EST Glomerular Filtration Rate 57 mL/min (>60); Est Glom Filt Rate - Afr Amer 68 mL/min (>60); Estimated Creatinine Clearance 43.08 ml/min; Glucose 82 mg/dL (74-106); Potassium 4.4 mmol/L (3.5-5.1); Sodium Level 142 mmol/L (136-145)
[2018-05-02] MEDS: Glucerna Shake 120 ML LIQUID PO ×4 (08:34→19:36)
[2018-05-02] MEDS: Clopidogrel Bisulfate 75 MG Tablet PO (08:35)
[2018-05-02] MEDS: Senna/Docusate Sodium 1 Tablet PO ×2 (08:36→17:31)
[2018-05-02] MEDS: Polyethylene Glycol 3350 17 GM PACKET PO (08:36)
[2018-05-02] MEDS: Enoxaparin 40 MG/0.4 ML Syringe SC (08:36)
[2018-05-02] MEDS: Ezetimibe 10 MG Tablet PO (08:36)
[2018-05-02] MEDS: Escitalopram Oxalate 10 MG Tablet PO (08:36)
[2018-05-02] MEDS: Aspirin E.C. 81 MG Tablet PO (08:36)
[2018-05-02] MEDS: Ramipril 5 MG Capsule PO (08:37)
[2018-05-02] MEDS: Tolterodine Tartrate 2 MG CAP.SA PO (08:37)
[2018-05-02] MEDS: Pioglitazone Hydrochloride 30 MG Tablet PO (08:37)
[2018-05-02] MEDS: 0.9% Normal Saline 1,000 ML 60 ML IV (08:42)
[2018-05-02 11:31] LABS: Bedside Glucose 94 mg/dL (70-110)
[2018-05-02 15:29] VITALS: BP 103/45; PULSE 60; RESP 18; TEMP 36.4; O2SAT 97
[2018-05-02 17:05] LABS: Bedside Glucose 140 mg/dL (70-110)
[2018-05-02] MEDS: Acetaminophen 500 MG Tablet 1000 MG PO (19:35)
[2018-05-02] MEDS: Donepezil HCl 10 MG Tablet PO (19:36)
[2018-05-02 21:02] LABS: Bedside Glucose 125 mg/dL (70-110)
[2018-05-03] MEDS: 0.9% Normal Saline 1,000 ML 60 ML IV ×2 (02:12→19:08)
[2018-05-03 06:45] LABS: Bedside Glucose 82 mg/dL (70-110)
[2018-05-03 06:57] VITALS: O2SAT 92
[2018-05-03] MEDS: Aspirin E.C. 81 MG Tablet PO (09:03)
[2018-05-03] MEDS: Escitalopram Oxalate 10 MG Tablet PO (09:03)
[2018-05-03] MEDS: Pioglitazone Hydrochloride 30 MG Tablet PO (09:03)
[2018-05-03] MEDS: Senna/Docusate Sodium 1 Tablet PO (09:03)
[2018-05-03] MEDS: Polyethylene Glycol 3350 17 GM PACKET PO (09:03)
[2018-05-03] MEDS: Ezetimibe 10 MG Tablet PO (09:04)
[2018-05-03] MEDS: Clopidogrel Bisulfate 75 MG Tablet PO (09:04)
[2018-05-03] MEDS: Enoxaparin 40 MG/0.4 ML Syringe SC (09:04)
[2018-05-03] MEDS: Tolterodine Tartrate 2 MG CAP.SA PO (09:04)
[2018-05-03] MEDS: Ramipril 5 MG Capsule PO (09:05)
[2018-05-03] MEDS: Glucerna Shake 120 ML LIQUID PO ×4 (09:08→19:57)
--- NOTE | 2018-05-03 10:06 | NURSING ---
Cyn, surgical lead from Dr. Ordoñez's office called, please update Dr. Ordoñez's office when patient discharges home.
[2018-05-03 12:01] LABS: Bedside Glucose 94 mg/dL (70-110)
--- NOTE | 2018-05-03 13:46 | PCM.PN.RX ---
<Harshad Powell D - Last Filed: 05/03/18 13:46> Progress Note - Pharmacy Subjective: TCU Admission Objective: Allergies iodine Allergy (Verified 02/24/18 13:39) Hives Penicillins Adverse Reaction (Verified 02/24/18 13:39) Rash Current Medications Generic Name Dose Route Start Last Admin Trade Name Freq PRN Reason Stop Dose Admin Acetaminophen 1,000 mg 04/30/18 18:57 05/02/18 19:35 Tylenol PO 1,000 mg Q6H PRN Administration MILD PAIN (1-10) Aspirin 81 mg 05/01/18 08:00 05/03/18 09:03 Ecotrin PO 81 mg DAILY@0800 [facility] Administration Bisacodyl 10 mg 04/30/18 16:48 Dulcolax RECTAL DAILY PRN Constipation Clopidogrel Bisulfate 75 mg 05/02/18 08:00 05/03/18 09:04 Plavix PO 75 mg DAILY@0800 EL Administration Donepezil HCl 10 mg 04/30/18 22:00 05/02/18 19:36 Aricept PO 10 mg QHS EL Administration Ezetimibe 10 mg 05/02/18 08:30 05/03/18 09:04 Zetia PO 10 mg DAILY@0800 EL Administration Enoxaparin Sodium 40 mg 05/02/18 08:30 05/03/18 09:04 Lovenox SC 40 mg DAILY@0800 EL Administration Escitalopram Oxalate 10 mg 05/02/18 08:00 05/03/18 09:03 Lexapro PO 10 mg DAILY@0800 EL Administration Sodium Chloride 1,000 mls @ 60 mls/hr 05/01/18 11:25 05/03/18 02:12 IV 60 mls/hr .[id number] EL Administration Multi-Ingredient Cream 1 applic 05/01/18 22:00 05/02/18 19:38 Eucerin TOPICAL 1 applicatio DAILY@2200 [facility] Administration Protocol Nutritional Formula (Lactose Free) 120 ml 04/30/18 22:00 05/03/18 12:16 Glucerna Shake PO 120 ml 4X/DAY EL Administration Pioglitazone HCl 30 mg 05/02/18 08:30 05/03/18 09:03 Actos PO 30 mg DAILY@0800 [facility] Administration Polyethylene Glycol 17 gm 05/02/18 08:30 05/03/18 09:03 Miralax PO 17 gm DAILY@0800 EL Administration Ramipril 5 mg 05/02/18 08:30 05/03/18 09:05 Altace PO 5 mg DAILY@0800 EL Administration Senna/Docusate Sodium 1 tablet 05/02/18 08:30 05/03/18 09:03 Senokot-S, Katelyn-Colace PO 1 tablet 0800,1800 EL Administration Tolterodine Tartrate 2 mg 05/02/18 08:30 05/03/18 09:04 Detrol La PO 2 mg DAILY@0800 EL Administration Tuberculin PPD 5 tu 05/08/18 10:00 Tubersol, Aplisol, Ppd ID 05/08/18 10:01 X1 ONE Problem List (Last Updated 04/24/18 @ 19:17 by George Pimentel MD) Fall (Acute) Dizziness (Acute) Debility (Acute) Orthostatic hypotension (Acute) Dehydration (Acute) Vascular dementia (Chronic) Stroke (Chronic) Coronary artery disease (Chronic) Diabetes mellitus (Chronic) Hyperlipidemia (Chronic) Hypothyroidism (Chronic) Chronic kidney disease (Chronic) Depression (Chronic) Overactive bladder (Chronic) Vital Signs Temp Pulse Resp BP Pulse Ox 97.5 F L 60 18 103/45 L 92 05/02/18 15:29 05/02/18 15:29 05/02/18 15:29 05/02/18 15:29 05/03/18 06:57 Oxygen Delivery Method Room Air Weight: 83.9 kg Body Mass Index (BMI) 29.0 Finger Stick Blood Glucose 103 Sodium 142 mmol/L (136-145) 05/02/18 06:54 Potassium 4.4 mmol/L (3.5-5.1) 05/02/18 06:54 Chloride 109 mmol/L (98-107) H 05/02/18 06:54 Carbon Dioxide 26.0 mmol/L (21.0-32.0) 05/02/18 06:54 Anion Gap 7 (5-15) 05/02/18 06:54 BUN 18 mg/dL (7-18) 05/02/18 06:54 Creatinine 1.30 mg/dL (0.70-1.30) 05/02/18 06:54 Est GFR (MDRD) Af Amer 68 mL/min (>60) 05/02/18 06:54 Est GFR (MDRD) Non-Af 57 mL/min (>60) L 05/02/18 06:54 BUN/Creatinine Ratio 13.8 RATIO (10-20) 05/02/18 06:54 Glucose 82 mg/dL (74-106) 05/02/18 06:54 Assessment/Plan: 1) Pain APAP for mild pain. Continue to monitor prn medication use, daily pain scores. * 2) CAD ASA, clopidogrel. Continue to monitor s/s stroke. Consider statin and dc ezetimibe if patient can tolerate. 3) HLD Ezetimibe 4) HTN Ramipril daily. Continue to monitor BP/HR, renal function, electrolytes. 5) DM2 Pioglitazone. Continue to monitor BGT. * 6) Tolterodine daily. Continue to monitor for symptoms. Consider DC in elderly patient - on BEERS list. 7) Alzheimer's Donepezil at HS. Continue to monitor clinically. 8) DVT PPx Enoxaparin daily. Continue to monitor s/s bleeding/clot. Psychotropic Medications: 9) Depression Escitalopram daily. Continue to monitor s/s depression. Unnecessary Medications: None Bowel Regimen: 10) Senna/s, PEG, prn bisacodyl. Continue to monitor prn medication use, for constipation/diarrhea. Date of Note:: 05/03/18 - Provider Comments Provider responsibility: Provider responsible to enter orders to implement recommendations <Ravinder Ellis Chi - Last Filed: 05/03/18 17:58> Progress Note - Pharmacy Subjective: [] Objective: Allergies iodine Allergy (Verified 02/24/18 13:39) Hives Penicillins Adverse Reaction (Verified 02/24/18 13:39) Rash Current Medications Generic Name Dose Route Start Last Admin Trade Name Freq PRN Reason Stop Dose Admin Acetaminophen 1,000 mg 04/30/18 18:57 05/02/18 19:35 Tylenol PO 1,000 mg Q6H PRN Administration MILD PAIN (1-3/10) Aspirin 81 mg 05/01/18 08:00 05/03/18 09:03 Ecotrin PO 81 mg DAILY@0800 EL Administration Bisacodyl 10 mg 04/30/18 16:48 Dulcolax RECTAL DAILY PRN Constipation Clopidogrel Bisulfate 75 mg 05/02/18 08:00 05/03/18 09:04 Plavix PO 75 mg DAILY@0800 EL Administration Donepezil HCl 10 mg 04/30/18 22:00 05/02/18 19:36 Aricept PO 10 mg QHS EL Administration Ezetimibe 10 mg 05/02/18 08:30 05/03/18 09:04 Zetia PO 10 mg DAILY@0800 EL Administration Enoxaparin Sodium 40 mg 05/02/18 08:30 05/03/18 09:04 Lovenox SC 40 mg DAILY@0800 EL Administration Escitalopram Oxalate 10 mg 05/02/18 08:00 05/03/18 09:03 Lexapro PO 10 mg DAILY@0800 EL Administration Sodium Chloride 1,000 mls @ 60 mls/hr 05/01/18 11:25 05/03/18 02:12 IV 60 mls/hr .[id number] EL Administration Multi-Ingredient Cream 1 applic 05/01/18 22:00 05/02/18 19:38 Eucerin TOPICAL 1 applicatio DAILY@2200 EL Administration Protocol Nutritional Formula (Lactose Free) 120 ml 04/30/18 22:00 05/03/18 12:16 Glucerna Shake PO 120 ml 4X/DAY EL Administration Pioglitazone HCl 30 mg 05/02/18 08:30 05/03/18 09:03 Actos PO 30 mg DAILY@0800 EL Administration Polyethylene Glycol 17 gm 05/02/18 08:30 05/03/18 09:03 Miralax PO 17 gm DAILY@0800 EL Administration Ramipril 5 mg 05/02/18 08:30 05/03/18 09:05 Altace PO 5 mg DAILY@0800 EL Administration Senna/Docusate Sodium 1 tablet 05/02/18 08:30 05/03/18 09:03 Senokot-S, Katelyn-Colace PO 1 tablet 0800,1800 [facility] Administration Tolterodine Tartrate 2 mg 05/02/18 08:30 05/03/18 09:04 Detrol La PO 2 mg DAILY@0800 EL Administration Tuberculin PPD 5 tu 05/08/18 10:00 Tubersol, Aplisol, Ppd ID 05/08/18 10:01 X1 ONE Problem List (Last Updated 04/24/18 @ 19:17 by George Pimentel MD) Fall (Acute) Dizziness (Acute) Debility (Acute) Orthostatic hypotension (Acute) Dehydration (Acute) Vascular dementia (Chronic) Stroke (Chronic) Coronary artery disease (Chronic) Diabetes mellitus (Chronic) Hyperlipidemia (Chronic) Hypothyroidism (Chronic) Chronic kidney disease (Chronic) Depression (Chronic) Overactive bladder (Chronic) Vital Signs Temp Pulse Resp BP Pulse Ox 97.6 F L 65 18 98/45 L 97 05/03/18 15:42 05/03/18 15:42 05/03/18 15:42 05/03/18 15:42 05/03/18 15:42 Oxygen Delivery Method Room Air Weight: 83.9 kg Body Mass Index (BMI) 29.0 Finger Stick Blood Glucose 103 Sodium 142 mmol/L (136-145) 05/02/18 06:54 Potassium 4.4 mmol/L (3.5-5.1) 05/02/18 06:54 Chloride 109 mmol/L (98-107) H 05/02/18 06:54 Carbon Dioxide 26.0 mmol/L (21.0-32.0) 05/02/18 06:54 Anion Gap 7 (5-15) 05/02/18 06:54 BUN 18 mg/dL (7-18) 05/02/18 06:54 Creatinine 1.30 mg/dL (0.70-1.30) 05/02/18 06:54 Est GFR (MDRD) Af Amer 68 mL/min (>60) 05/02/18 06:54 Est GFR (MDRD) Non-Af 57 mL/min (>60) L 05/02/18 06:54 BUN/Creatinine Ratio 13.8 RATIO (10-20) 05/02/18 06:54 Glucose 82 mg/dL (74-106) 05/02/18 06:54 Assessment/Plan: Psychotropic Medications: Unnecessary Medications: Bowel Regimen: - Provider Comments Provider responsibility: Provider responsible to enter orders to implement recommendations Provider Comments to Recommendations by Pharmacy: Agree
--- NOTE | 2018-05-03 13:52 | PHA.CONS_ITS ---
<Harshad Powell D - Last Filed: 05/03/18 13:46> Progress Note - Pharmacy Subjective: TCU Admission Objective: Allergies iodine Allergy (Verified 02/24/18 13:39) Hives Penicillins Adverse Reaction (Verified 02/24/18 13:39) Rash Current Medications Generic Name Dose Route Start Last Admin Trade Name Freq PRN Reason Stop Dose Admin Acetaminophen 1,000 mg 04/30/18 18:57 05/02/18 19:35 Tylenol PO 1,000 mg Q6H PRN Administration MILD PAIN (1-10) Aspirin 81 mg 05/01/18 08:00 05/03/18 09:03 Ecotrin PO 81 mg DAILY@0800 [facility] Administration Bisacodyl 10 mg 04/30/18 16:48 Dulcolax RECTAL DAILY PRN Constipation Clopidogrel Bisulfate 75 mg 05/02/18 08:00 05/03/18 09:04 Plavix PO 75 mg DAILY@0800 EL Administration Donepezil HCl 10 mg 04/30/18 22:00 05/02/18 19:36 Aricept PO 10 mg QHS EL Administration Ezetimibe 10 mg 05/02/18 08:30 05/03/18 09:04 Zetia PO 10 mg DAILY@0800 EL Administration Enoxaparin Sodium 40 mg 05/02/18 08:30 05/03/18 09:04 Lovenox SC 40 mg DAILY@0800 EL Administration Escitalopram Oxalate 10 mg 05/02/18 08:00 05/03/18 09:03 Lexapro PO 10 mg DAILY@0800 EL Administration Sodium Chloride 1,000 mls @ 60 mls/hr 05/01/18 11:25 05/03/18 02:12 IV 60 mls/hr .[id number] EL Administration Multi-Ingredient Cream 1 applic 05/01/18 22:00 05/02/18 19:38 Eucerin TOPICAL 1 applicatio DAILY@2200 [facility] Administration Protocol Nutritional Formula (Lactose Free) 120 ml 04/30/18 22:00 05/03/18 12:16 Glucerna Shake PO 120 ml 4X/DAY EL Administration Pioglitazone HCl 30 mg 05/02/18 08:30 05/03/18 09:03 Actos PO 30 mg DAILY@0800 [facility] Administration Polyethylene Glycol 17 gm 05/02/18 08:30 05/03/18 09:03 Miralax PO 17 gm DAILY@0800 EL Administration Ramipril 5 mg 05/02/18 08:30 05/03/18 09:05 Altace PO 5 mg DAILY@0800 EL Administration Senna/Docusate Sodium 1 tablet 05/02/18 08:30 05/03/18 09:03 Senokot-S, Katelyn-Colace PO 1 tablet 0800,1800 EL Administration Tolterodine Tartrate 2 mg 05/02/18 08:30 05/03/18 09:04 Detrol La PO 2 mg DAILY@0800 EL Administration Tuberculin PPD 5 tu 05/08/18 10:00 Tubersol, Aplisol, Ppd ID 05/08/18 10:01 X1 ONE Problem List (Last Updated 04/24/18 @ 19:17 by George Pimetnel MD) Fall (Acute) Dizziness (Acute) Debility (Acute) Orthostatic hypotension (Acute) Dehydration (Acute) Vascular dementia (Chronic) Stroke (Chronic) Coronary artery disease (Chronic) Diabetes mellitus (Chronic) Hyperlipidemia (Chronic) Hypothyroidism (Chronic) Chronic kidney disease (Chronic) Depression (Chronic) Overactive bladder (Chronic) Vital Signs Temp Pulse Resp BP Pulse Ox 97.5 F L 60 18 103/45 L 92 05/02/18 15:29 05/02/18 15:29 05/02/18 15:29 05/02/18 15:29 05/03/18 06:57 Oxygen Delivery Method Room Air Weight: 83.9 kg Body Mass Index (BMI) 29.0 Finger Stick Blood Glucose 103 Sodium 142 mmol/L (136-145) 05/02/18 06:54 Potassium 4.4 mmol/L (3.5-5.1) 05/02/18 06:54 Chloride 109 mmol/L (98-107) H 05/02/18 06:54 Carbon Dioxide 26.0 mmol/L (21.0-32.0) 05/02/18 06:54 Anion Gap 7 (5-15) 05/02/18 06:54 BUN 18 mg/dL (7-18) 05/02/18 06:54 Creatinine 1.30 mg/dL (0.70-1.30) 05/02/18 06:54 Est GFR (MDRD) Af Amer 68 mL/min (>60) 05/02/18 06:54 Est GFR (MDRD) Non-Af 57 mL/min (>60) L 05/02/18 06:54 BUN/Creatinine Ratio 13.8 RATIO (10-20) 05/02/18 06:54 Glucose 82 mg/dL (74-106) 05/02/18 06:54 Assessment/Plan: 1) Pain APAP for mild pain. Continue to monitor prn medication use, daily pain scores. * 2) CAD ASA, clopidogrel. Continue to monitor s/s stroke. Consider statin and dc ezetimibe if patient can tolerate. 3) HLD Ezetimibe 4) HTN Ramipril daily. Continue to monitor BP/HR, renal function, electrolytes. 5) DM2 Pioglitazone. Continue to monitor BGT. * 6) Tolterodine daily. Continue to monitor for symptoms. Consider DC in elderly patient - on BEERS list. 7) Alzheimer's Donepezil at HS. Continue to monitor clinically. 8) DVT PPx Enoxaparin daily. Continue to monitor s/s bleeding/clot. Psychotropic Medications: 9) Depression Escitalopram daily. Continue to monitor s/s depression. Unnecessary Medications: None Bowel Regimen: 10) Senna/s, PEG, prn bisacodyl. Continue to monitor prn medication use, for constipation/diarrhea. Date of Note:: 05/03/18 - Provider Comments Provider responsibility: Provider responsible to enter orders to implement recommendations <Ravinder Ellis Chi - Last Filed: 05/03/18 17:58> Progress Note - Pharmacy Subjective: [] Objective: Allergies iodine Allergy (Verified 02/24/18 13:39) Hives Penicillins Adverse Reaction (Verified 02/24/18 13:39) Rash Current Medications Generic Name Dose Route Start Last Admin Trade Name Freq PRN Reason Stop Dose Admin Acetaminophen 1,000 mg 04/30/18 18:57 05/02/18 19:35 Tylenol PO 1,000 mg Q6H PRN Administration MILD PAIN (1-3/10) Aspirin 81 mg 05/01/18 08:00 05/03/18 09:03 Ecotrin PO 81 mg DAILY@0800 EL Administration Bisacodyl 10 mg 04/30/18 16:48 Dulcolax RECTAL DAILY PRN Constipation Clopidogrel Bisulfate 75 mg 05/02/18 08:00 05/03/18 09:04 Plavix PO 75 mg DAILY@0800 EL Administration Donepezil HCl 10 mg 04/30/18 22:00 05/02/18 19:36 Aricept PO 10 mg QHS EL Administration Ezetimibe 10 mg 05/02/18 08:30 05/03/18 09:04 Zetia PO 10 mg DAILY@0800 EL Administration Enoxaparin Sodium 40 mg 05/02/18 08:30 05/03/18 09:04 Lovenox SC 40 mg DAILY@0800 EL Administration Escitalopram Oxalate 10 mg 05/02/18 08:00 05/03/18 09:03 Lexapro PO 10 mg DAILY@0800 EL Administration Sodium Chloride 1,000 mls @ 60 mls/hr 05/01/18 11:25 05/03/18 02:12 IV 60 mls/hr .[id number] EL Administration Multi-Ingredient Cream 1 applic 05/01/18 22:00 05/02/18 19:38 Eucerin TOPICAL 1 applicatio DAILY@2200 EL Administration Protocol Nutritional Formula (Lactose Free) 120 ml 04/30/18 22:00 05/03/18 12:16 Glucerna Shake PO 120 ml 4X/DAY EL Administration Pioglitazone HCl 30 mg 05/02/18 08:30 05/03/18 09:03 Actos PO 30 mg DAILY@0800 EL Administration Polyethylene Glycol 17 gm 05/02/18 08:30 05/03/18 09:03 Miralax PO 17 gm DAILY@0800 EL Administration Ramipril 5 mg 05/02/18 08:30 05/03/18 09:05 Altace PO 5 mg DAILY@0800 EL Administration Senna/Docusate Sodium 1 tablet 05/02/18 08:30 05/03/18 09:03 Senokot-S, Katelyn-Colace PO 1 tablet 0800,1800 [facility] Administration Tolterodine Tartrate 2 mg 05/02/18 08:30 05/03/18 09:04 Detrol La PO 2 mg DAILY@0800 EL Administration Tuberculin PPD 5 tu 05/08/18 10:00 Tubersol, Aplisol, Ppd ID 05/08/18 10:01 X1 ONE Problem List (Last Updated 04/24/18 @ 19:17 by George Pimentel MD) Fall (Acute) Dizziness (Acute) Debility (Acute) Orthostatic hypotension (Acute) Dehydration (Acute) Vascular dementia (Chronic) Stroke (Chronic) Coronary artery disease (Chronic) Diabetes mellitus (Chronic) Hyperlipidemia (Chronic) Hypothyroidism (Chronic) Chronic kidney disease (Chronic) Depression (Chronic) Overactive bladder (Chronic) Vital Signs Temp Pulse Resp BP Pulse Ox 97.6 F L 65 18 98/45 L 97 05/03/18 15:42 05/03/18 15:42 05/03/18 15:42 05/03/18 15:42 05/03/18 15:42 Oxygen Delivery Method Room Air Weight: 83.9 kg Body Mass Index (BMI) 29.0 Finger Stick Blood Glucose 103 Sodium 142 mmol/L (136-145) 05/02/18 06:54 Potassium 4.4 mmol/L (3.5-5.1) 05/02/18 06:54 Chloride 109 mmol/L (98-107) H 05/02/18 06:54 Carbon Dioxide 26.0 mmol/L (21.0-32.0) 05/02/18 06:54 Anion Gap 7 (5-15) 05/02/18 06:54 BUN 18 mg/dL (7-18) 05/02/18 06:54 Creatinine 1.30 mg/dL (0.70-1.30) 05/02/18 06:54 Est GFR (MDRD) Af Amer 68 mL/min (>60) 05/02/18 06:54 Est GFR (MDRD) Non-Af 57 mL/min (>60) L 05/02/18 06:54 BUN/Creatinine Ratio 13.8 RATIO (10-20) 05/02/18 06:54 Glucose 82 mg/dL (74-106) 05/02/18 06:54 Assessment/Plan: Psychotropic Medications: Unnecessary Medications: Bowel Regimen: - Provider Comments Provider responsibility: Provider responsible to enter orders to implement recommendations Provider Comments to Recommendations by Pharmacy: Agree
[2018-05-03 15:42] VITALS: BP 98/45; PULSE 65; RESP 18; TEMP 36.4; O2SAT 97
--- NOTE | 2018-05-03 16:22 | CHAPLAIN ---
Type of Pastoral Visit ___ Initial Visit _x__ Follow-up Visit ___ On-call Visit ___ General Patient Visit ___ Spiritual Assessment ___ Family Conference ___ Bereavement ___ Rapid Response ___ Code Blue ___ Other (describe below) Pastoral Care Referral From _x__ Patient ___ Family ___ Nurse ___ Physician ___ Schedule Hanger ___ Casey Saw Operator ___ Other (describe below) Sacrament/Intervention _x__ Active listening ___ Anointing ___ Evangelical ___ Bereavement ___ Communion _x__ Zenia exploration ___ _x__ Life review _x__ Prayer ___ Reconciliation ___ Sacrament of Sick _x__ Supportive presence ___ Wedding ___ Other (describe below) Pastoral Comments
[2018-05-03 17:06] LABS: Bedside Glucose 123 mg/dL (70-110)
[2018-05-03] MEDS: Donepezil HCl 10 MG Tablet PO (19:57)
[2018-05-03 20:37] LABS: Bedside Glucose 134 mg/dL (70-110)
[2018-05-04 06:41] LABS: Bedside Glucose 80 mg/dL (70-110)
[2018-05-04] MEDS: Clopidogrel Bisulfate 75 MG Tablet PO (08:21)
[2018-05-04] MEDS: Escitalopram Oxalate 10 MG Tablet PO (08:21)
[2018-05-04] MEDS: Tolterodine Tartrate 2 MG CAP.SA PO (08:21)
[2018-05-04] MEDS: Aspirin E.C. 81 MG Tablet PO (08:21)
[2018-05-04] MEDS: Senna/Docusate Sodium 1 Tablet PO ×2 (08:21→16:34)
[2018-05-04] MEDS: Polyethylene Glycol 3350 17 GM PACKET PO (08:21)
[2018-05-04] MEDS: Ezetimibe 10 MG Tablet PO (08:21)
[2018-05-04] MEDS: Ramipril 5 MG Capsule PO (08:22)
[2018-05-04] MEDS: Pioglitazone Hydrochloride 30 MG Tablet PO (08:22)
[2018-05-04] MEDS: Enoxaparin 40 MG/0.4 ML Syringe SC (08:22)
[2018-05-04 09:31] VITALS: BP 98/57; PULSE 60; RESP 16; O2SAT 97
[2018-05-04 09:36] VITALS: PULSE 60; O2SAT 96
[2018-05-04] MEDS: Acetaminophen 500 MG Tablet 1000 MG PO (10:22)
[2018-05-04] MEDS: Glucerna Shake 120 ML LIQUID PO ×3 (11:46→19:56)
[2018-05-04] MEDS: 0.9% Normal Saline 1,000 ML 60 ML IV (13:50)
[2018-05-04 14:59] VITALS: BP 104/48; PULSE 57; RESP 18; TEMP 36.2; O2SAT 96
[2018-05-04] MEDS: Donepezil HCl 10 MG Tablet PO (19:55)
[2018-05-05] MEDS: 0.9% Normal Saline 1,000 ML 60 ML IV (06:14)
[2018-05-05 07:20] LABS: Bedside Glucose 84 mg/dL (70-110)
[2018-05-05] MEDS: Ezetimibe 10 MG Tablet PO (08:19)
[2018-05-05] MEDS: Escitalopram Oxalate 10 MG Tablet PO (08:19)
[2018-05-05] MEDS: Senna/Docusate Sodium 1 Tablet PO ×2 (08:19→17:10)
[2018-05-05] MEDS: Pioglitazone Hydrochloride 30 MG Tablet PO (08:19)
[2018-05-05] MEDS: Clopidogrel Bisulfate 75 MG Tablet PO (08:19)
[2018-05-05] MEDS: Tolterodine Tartrate 2 MG CAP.SA PO (08:19)
[2018-05-05] MEDS: Aspirin E.C. 81 MG Tablet PO (08:19)
[2018-05-05] MEDS: Ramipril 5 MG Capsule PO (08:19)
[2018-05-05] MEDS: Enoxaparin 40 MG/0.4 ML Syringe SC (08:20)
[2018-05-05] MEDS: Polyethylene Glycol 3350 17 GM PACKET PO (08:20)
[2018-05-05 08:32] VITALS: BP 156/63; PULSE 67; RESP 18; O2SAT 96
[2018-05-05 08:36] VITALS: PULSE 67; O2SAT 97
--- NOTE | 2018-05-05 09:30 | NURSING ---
PRODUCTION SANITIZER REQUESTING DIET BE CHANGED TO REGULAR PER PT REQUEST. ORDER CHANGED
--- NOTE | 2018-05-05 09:48 | CASEMGMT ---
Plan of care meeting held. Resident present as well as resident family. No discharge date set at this time. Resident to continue with further care and treatment on the Transitional Care Unit. Resident plans to discharge to home with spouse at time of discharge. Resident does have an insurance update due today and aware that continued stay approval is not guaranteed. Support given. Will continue to follow. REI Oliveira, HOME HEALTH CARE PROVIDER
[2018-05-05] MEDS: Glucerna Shake 120 ML LIQUID PO ×3 (11:02→19:35)
--- NOTE | 2018-05-05 13:51 | CASEMGMT ---
Insurance Clinical information faxed. Pending continued stay approval at this time. Auth#[id number] REI Oliveira, DRY PRESS OPERATOR
[2018-05-05 15:30] VITALS: BP 106/52; PULSE 57; RESP 16; TEMP 36.3; O2SAT 98
[2018-05-05] MEDS: Donepezil HCl 10 MG Tablet PO (19:35)
[2018-05-06] MEDS: Glucerna Shake 120 ML LIQUID PO ×4 (05:56→19:42)
--- NOTE | 2018-05-06 06:36 | NURSING ---
Addendum entered by Daiana Forrest 05/07/18 07:40: Dr Ellis assessed, no new orders. Original Note: Baseball size, hard bump noted to pt's rt chest wall. Ecchymosis noted over top. Hard area extends toward right breast and down to right abd. This nurse requesting Dr Ellis view this AM.
[2018-05-06 06:40] LABS: Bedside Glucose 76 mg/dL (70-110)
[2018-05-06] MEDS: Clopidogrel Bisulfate 75 MG Tablet PO (08:16)
[2018-05-06] MEDS: Escitalopram Oxalate 10 MG Tablet PO (08:16)
[2018-05-06] MEDS: Aspirin E.C. 81 MG Tablet PO (08:16)
[2018-05-06] MEDS: Ezetimibe 10 MG Tablet PO (08:19)
[2018-05-06] MEDS: Pioglitazone Hydrochloride 30 MG Tablet PO (08:19)
[2018-05-06] MEDS: Polyethylene Glycol 3350 17 GM PACKET PO (08:19)
[2018-05-06] MEDS: Enoxaparin 40 MG/0.4 ML Syringe SC (08:19)
[2018-05-06] MEDS: Tolterodine Tartrate 2 MG CAP.SA PO (08:19)
[2018-05-06] MEDS: Ramipril 5 MG Capsule PO (08:19)
--- NOTE | 2018-05-06 08:47 | CASEMGMT ---
Insurance Continued stay approved with next update due on 05/10/18. Auth#[id number] REI Oliveira, TIMBER CRUISER
--- NOTE | 2018-05-06 10:32 | MDS.RN ---
Pain interview for vanesa 05/07/18 completed.
[2018-05-06 16:00] VITALS: BP 112/53; PULSE 63; RESP 14; TEMP 35.7; O2SAT 99
[2018-05-06] MEDS: Donepezil HCl 10 MG Tablet PO (19:42)
[2018-05-07] MEDS: Glucerna Shake 120 ML LIQUID PO ×4 (05:52→20:18)
[2018-05-07 06:31] LABS: Bedside Glucose 90 mg/dL (70-110)
[2018-05-07] MEDS: Senna/Docusate Sodium 1 Tablet PO (08:28)
[2018-05-07] MEDS: Aspirin E.C. 81 MG Tablet PO (08:28)
[2018-05-07] MEDS: Ezetimibe 10 MG Tablet PO (08:28)
[2018-05-07] MEDS: Enoxaparin 40 MG/0.4 ML Syringe SC (08:28)
[2018-05-07] MEDS: Tolterodine Tartrate 2 MG CAP.SA PO (08:28)
[2018-05-07] MEDS: Escitalopram Oxalate 10 MG Tablet PO (08:28)
[2018-05-07] MEDS: Ramipril 5 MG Capsule PO (08:28)
[2018-05-07] MEDS: Clopidogrel Bisulfate 75 MG Tablet PO (08:28)
[2018-05-07] MEDS: Pioglitazone Hydrochloride 15 MG Tablet PO (08:29)
[2018-05-07 08:38] VITALS: PULSE 60; RESP 18; O2SAT 96
[2018-05-07 08:49] VITALS: BP 118/62; PULSE 60; RESP 18; O2SAT 96
--- NOTE | 2018-05-07 12:07 | CASEMGMT ---
Brief interview for mental status (BIMS) and resident mood interview (PHQ-9) completed on this day. BIMS score 14/15. PHQ-9 score 07/21
[2018-05-07 15:23] VITALS: BP 105/56; PULSE 55; RESP 18; TEMP 36.2; O2SAT 95
[2018-05-07] MEDS: Donepezil HCl 10 MG Tablet PO (20:18)
[2018-05-08] MEDS: Glucerna Shake 120 ML LIQUID PO ×4 (06:30→20:06)
[2018-05-08 06:56] LABS: Bedside Glucose 83 mg/dL (70-110)
[2018-05-08 08:09] LABS: Absolute Lymphocyte Count 1.61 X10^3/ul (0.83-4.51); Absolute Neutrophil Count 3.3 X10^3/uL (2.0-7.7); Basophil# 0.03 X10^3/uL; Basophil% 0.5 % (0-1); Eosinophil# 0.22 X10^3/uL; Eosinophils% 3.9 % (0-5); Hematocrit 34.8 % (40-54); Hemoglobin 10.6 g/dl (13.0-16.5); Lymphocyte # 1.61 X10^3/ul (4.0); Lymphocyte % 28.3 % (19-41); Mean Corp Hgb Conc 30.5 g/gl (32-36); Mean Corpuscular Hgb 28.3 pg (27.0-32.0); Mean Corpuscular Volume 92.8 fL (80-94); Mean Platelet Vol. 11.3 fl (6.2-12.0); Monocyte# 0.53 X10^3/uL; Monocyte% 9.3 % (0-10); Neutrophil # 3.29 X10^3/uL (2.7-7.7); Neutrophil % 57.8 % (47-70); Platelet Count 164 K/mm3 (150-450); RBC Distribution Width CV 15.4 % (11.6-14.6); RBC Distribution Width SD 52.2 fl (35.1-43.9); Red Blood Count 3.75 M/mm3 (4.6-6.2); White Blood Count 5.7 K/mm3 (4.4-11.0)
[2018-05-08 08:10] LABS: POSITIVE COUNT NO; POSITIVE DIFFERENTIAL NO; POSITIVE MORPHOLOGY NO
[2018-05-08 08:34] LABS: Anion Gap 6 (5-15); BUN 20 mg/dL (7-18); BUN/Creat Ratio 16.5 RATIO (10-20); Chloride 109 mmol/L (98-107); Creatinine, Serum 1.21 mg/dL (0.70-1.30); EST Glomerular Filtration Rate 61 mL/min (>60); Est Glom Filt Rate - Afr Amer 74 mL/min (>60); Estimated Creatinine Clearance 46.28 ml/min; Glucose 81 mg/dL (74-106); Sodium Level 142 mmol/L (136-145)
[2018-05-08] MEDS: Ramipril 5 MG Capsule PO (08:59)
[2018-05-08] MEDS: Ezetimibe 10 MG Tablet PO (08:59)
[2018-05-08] MEDS: Tolterodine Tartrate 2 MG CAP.SA PO (08:59)
[2018-05-08] MEDS: Enoxaparin 40 MG/0.4 ML Syringe SC (08:59)
[2018-05-08] MEDS: Aspirin E.C. 81 MG Tablet PO (08:59)
[2018-05-08] MEDS: Clopidogrel Bisulfate 75 MG Tablet PO (08:59)
[2018-05-08] MEDS: Pioglitazone Hydrochloride 15 MG Tablet PO (08:59)
[2018-05-08] MEDS: Polyethylene Glycol 3350 17 GM PACKET PO (09:00)
[2018-05-08] MEDS: Escitalopram Oxalate 10 MG Tablet PO (09:00)
[2018-05-08] MEDS: Senna/Docusate Sodium 1 Tablet PO ×2 (09:00→16:24)
[2018-05-08] MEDS: Tuberculin,Purif.prot.deriv. 50 TU/ML Vial 5 ML ID (11:42)
[2018-05-08 15:46] VITALS: BP 104/56; PULSE 56; RESP 16; TEMP 36; O2SAT 98
--- NOTE | 2018-05-08 16:21 | NURSING ---
DR. MCNALLY AWARE OF LABS. NO N.O. NO FERREX AT THIS TIME.
[2018-05-08] MEDS: Donepezil HCl 10 MG Tablet PO (20:06)
[2018-05-09 06:36] LABS: Bedside Glucose 80 mg/dL (70-110)
[2018-05-09] MEDS: Enoxaparin 40 MG/0.4 ML Syringe SC (09:01)
[2018-05-09] MEDS: Aspirin E.C. 81 MG Tablet PO (09:01)
[2018-05-09] MEDS: Pioglitazone Hydrochloride 15 MG Tablet PO (09:01)
[2018-05-09] MEDS: Ezetimibe 10 MG Tablet PO (09:01)
[2018-05-09] MEDS: Clopidogrel Bisulfate 75 MG Tablet PO (09:01)
[2018-05-09] MEDS: Polyethylene Glycol 3350 17 GM PACKET PO (09:01)
[2018-05-09] MEDS: Escitalopram Oxalate 10 MG Tablet PO (09:01)
[2018-05-09] MEDS: Ramipril 5 MG Capsule PO (09:01)
[2018-05-09] MEDS: Tolterodine Tartrate 2 MG CAP.SA PO (09:01)
[2018-05-09] MEDS: Glucerna Shake 120 ML LIQUID PO ×4 (09:03→20:02)
[2018-05-09] MEDS: Senna/Docusate Sodium 1 Tablet PO ×2 (09:08→17:12)
[2018-05-09 15:25] VITALS: BP 103/53; PULSE 65; RESP 16; TEMP 36.3; O2SAT 97
[2018-05-09] MEDS: Donepezil HCl 10 MG Tablet PO (20:02)
[2018-05-09 20:05] VITALS: PULSE 68; O2SAT 99
[2018-05-09] MEDS: Acetaminophen 500 MG Tablet 1000 MG PO (20:05)
[2018-05-10] MEDS: Glucerna Shake 120 ML LIQUID PO ×4 (05:58→19:39)
[2018-05-10 06:46] LABS: Bedside Glucose 87 mg/dL (70-110)
[2018-05-10] MEDS: Tolterodine Tartrate 2 MG CAP.SA PO (08:37)
[2018-05-10] MEDS: Pioglitazone Hydrochloride 15 MG Tablet PO (08:37)
[2018-05-10] MEDS: Aspirin E.C. 81 MG Tablet PO (08:37)
[2018-05-10] MEDS: Escitalopram Oxalate 10 MG Tablet PO (08:37)
[2018-05-10] MEDS: Clopidogrel Bisulfate 75 MG Tablet PO (08:38)
[2018-05-10] MEDS: Ezetimibe 10 MG Tablet PO (08:38)
[2018-05-10 08:39] VITALS: BP 87/63; PULSE 68
[2018-05-10] MEDS: Enoxaparin 40 MG/0.4 ML Syringe SC (08:42)
--- NOTE | 2018-05-10 08:42 | NURSING ---
Addendum entered by Daiana Forrest 05/10/18 15:54: Altace given, BP better. Original Note: holding altace this AM, pt low BP. will recheck later. Pt sitting up in recliner chair eating, asymptomatic. call light in reach.
[2018-05-10 10:50] VITALS: BP 112/66
[2018-05-10] MEDS: Ramipril 5 MG Capsule PO (10:51)
--- NOTE | 2018-05-10 12:32 | CASEMGMT ---
Insurance Clinical information sent. Pending continued stay approval at this time. Auth#[id number] SHAWN Landa
[2018-05-10 15:44] VITALS: BP 102/58; PULSE 73; RESP 18; TEMP 35.9; O2SAT 97
[2018-05-10] MEDS: Donepezil HCl 10 MG Tablet PO (19:42)
[2018-05-10] MEDS: Acetaminophen 500 MG Tablet 1000 MG PO (19:45)
[2018-05-11 06:31] LABS: Bedside Glucose 75 mg/dL (70-110)
[2018-05-11] MEDS: Clopidogrel Bisulfate 75 MG Tablet PO (07:56)
[2018-05-11] MEDS: Ramipril 5 MG Capsule PO (07:56)
[2018-05-11] MEDS: Aspirin E.C. 81 MG Tablet PO (07:56)
[2018-05-11] MEDS: Pioglitazone Hydrochloride 15 MG Tablet PO (07:56)
[2018-05-11] MEDS: Ezetimibe 10 MG Tablet PO (07:56)
[2018-05-11] MEDS: Escitalopram Oxalate 10 MG Tablet PO (07:56)
[2018-05-11] MEDS: Tolterodine Tartrate 2 MG CAP.SA PO (07:56)
[2018-05-11] MEDS: Enoxaparin 40 MG/0.4 ML Syringe SC (07:56)
[2018-05-11] MEDS: Glucerna Shake 120 ML LIQUID PO ×3 (11:00→19:48)
--- NOTE | 2018-05-11 13:56 | CASEMGMT ---
Insurance Continued stay denied with last cover day being 05/13/18 and resident to discharge or financial responsibility to begin on 05/14/18. Auth#[id number] RENAY Oliveira, INTERNAL CARVER
--- NOTE | 2018-05-11 15:06 | CASEMGMT ---
Addendum entered by Carrie Eli 05/11/18 17:48: Was able to meet with both resident and resident spouse in room. This forensic social worker communicating all below information. Resident spouse voicing to plan to provide 24hr care for resident within the home and is currently declining home health care at this time. Resident is agreeing with resident spouse on declining home health care. This forensic social worker educating resident and resident spouse on the value of following recommendation, resident spouse voicing understanding but declining home health care. Resident spouse educated on ways to get home health care set up within the community once resident discharges, if resident and resident spouse would change their minds. Resident spouse plans to provide transportation home for resident at time of discharge. Resident plans to discharge to home with spouse without home health care at this time and 24hr care provided by resident spouse. Support given. Original Note: Social Work Spoke with resident in room. This forensic social worker communicating to resident that continued stay has been denied by insurance with a last cover day of 05/13/18 and resident to discharge or financial responsibility to begin on 05/14/18. Resident voicing understanding and agreeable to recommendation, but wanting to speak with spouse about this as well. Resident agreeable to this forensic social worker contacting resident spouse in regards to above information. Telephone call to resident spouse, lina Cordoba left. Team is recommending for resident to have 24hr care within the home at time of discharge along with home health care for physical and occupational therapy. Support given. Will continue to follow. Proposed discharge date: 05/14/18 PLAN: Discharge to home with spouse and home health care. Scout NIÑO MSW
[2018-05-11 15:16] VITALS: BP 116/64; PULSE 63; RESP 16; TEMP 36.2; O2SAT 100
--- NOTE | 2018-05-11 18:21 | RAD_ITS ---
STUDY: X-RAY - RIGHT KNEE REASON FOR EXAM: Male, 78 years old. Fell couple of days ago onto his right knee. Pain anteriorly and laterally. TECHNIQUE: 2 view(s) of the knee. COMPARISON: None. FINDINGS: Small spurring along the femoral notch and spine. Anterior spur of the tibial plateau. Mild osteopenia. Normal proximal tibiofibular articulation. There is mild degenerative arthrosis of the medial femorotibial compartment. There is mild degenerative arthrosis of the lateral femorotibial compartment. There is mild degenerative arthrosis of the patellofemoral articulation. There is no demonstrated joint effusion. There are atherosclerotic calcifications. RAD/Knee 1 or 2 Views IMPRESSION: Mild tricompartmental degenerative changes. There is no acute displaced fracture or dislocation. Mild osteopenia. Electronically Signed: Noelle Panda MD at 0:59 EST , Service support ,
[2018-05-11] MEDS: Donepezil HCl 10 MG Tablet PO (19:48)
--- NOTE | 2018-05-11 21:05 | DCINST_ITS ---
- Discharge Diagnoses Current Active Problems: Current Active and Chronic Problems (Last Updated 04/24/18 @ 19:17 by George Pimentel MD) Fall (Acute) Dizziness (Acute) Debility (Acute) Orthostatic hypotension (Acute) Dehydration (Acute) Vascular dementia (Chronic) Stroke (Chronic) Coronary artery disease (Chronic) Diabetes mellitus (Chronic) Hyperlipidemia (Chronic) Hypothyroidism (Chronic) Chronic kidney disease (Chronic) Depression (Chronic) Overactive bladder (Chronic) You will use the following diet at home:: No restrictions, Regular Your food should be the consistency of: Regular Your liquids should be the consistency of: Regular/Thin Discharge Activity: Return to Normal Activity, May Shower, Use Walker Weight Bearing Status: Weight bearing as tolerated Call your doctor if you observe: Fever of 101 or Higher, Inability to urinate, Inability to have a bowel movement, Shortness of breath, Chest pain, Uncontrolled pain Allergies/Adverse Reactions: Allergies iodine Allergy (Verified 02/24/18 13:39) Hives Penicillins Adverse Reaction (Verified 02/24/18 13:39) Rash Medications to take at Discharge Aspirin E.C. [Ecotrin] 81 mg PO DAILY@0800 09/15/13 Escitalopram Oxalate [Lexapro] 10 mg PO DAILY 09/15/13 Pioglitazone [Actos] 30 mg PO DAILY 09/15/13 Donepezil HCl [Aricept] 10 mg PO QHS 02/27/16 Oxybutynin [Ditropan] 15 mg PO DAILY 02/27/16 docusate sodium 100 mg capsule 100 mg PO DAILY PRN cap 02/24/18 Clopidogrel Bisulfate [Plavix] 75 mg PO DAILY 04/30/18 Ezetimibe [Zetia] 10 mg PO DAILY 04/30/18 Ramipril 5 mg PO DAILY 04/30/18 Acetaminophen [Tylenol] 1,000 mg PO Q6H PRN tablet 05/11/18 Mineral Oil/Petrolatum,White [Eucerin] 1 applic TOPICAL DAILY@2200 jar 05/11/18 Primary Care Physician: Daiana Andrew NP-C [Primary Care Provider] - Please follow up with your Primary Care Physician in: 1 week. Test Results: Test results from this visit will be discussed in further detail at your follow- up appointment, if applicable. Please Follow Up With: Daiana Andrew NP-C Proposed Discharge Date: 05/14/18
--- NOTE | 2018-05-11 21:07 | DS.PCM_ITS ---
Discharge Date and Diagnosis - Problem List Patient Problems: Active and Suspected Problems (Last Updated 04/24/18 @ 19:17 by George Pimentel MD) Fall (Acute) Dizziness (Acute) Debility (Acute) Orthostatic hypotension (Acute) Dehydration (Acute) Date of Admission: 04/30/18 Date of Discharge: 05/14/18 - Primary Discharge Diagnosis Active and Suspected Problems (Last Updated 04/24/18 @ 19:17 by George Pimentel MD) Fall (Acute) Dizziness (Acute) Debility (Acute) Orthostatic hypotension (Acute) Dehydration (Acute) - Secondary Discharge Diagnosis Chronic Problems (Last Updated 04/24/18 @ 19:17 by George Pimentel MD) Vascular dementia (Chronic) Stroke (Chronic) Coronary artery disease (Chronic) Diabetes mellitus (Chronic) Hyperlipidemia (Chronic) Hypothyroidism (Chronic) Chronic kidney disease (Chronic) Depression (Chronic) Overactive bladder (Chronic) History of CVA (cerebrovascular accident) (Chronic) Pure hypercholesterolemia (Chronic) Atherosclerosis of [place] coronary artery of [place] heart without angina pectoris (Chronic) MACIAS to LAD, aortocoronary left radial artery to obtuse marginal artery, SVG to PDA; GERD (gastroesophageal reflux disease) (Chronic) History of angioplasty (Chronic 11/06/89) Angioplasty and stenting to 70% stenosis in proximal LAD, angioplasty and stenting to proximal diagonal LAD at bifurcation, and atherectomy and stenting to 80% stenosis in mid first diagonal artery in April 2011. 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) MACIAS to LAD, aortocoronary left radial artery to obtuse marginal artery, SVG to PDA H/O percutaneous transluminal coronary angioplasty (Chronic ~05/13/11) stent to diagonal 1 History of cardiac catheterization (Chronic ~03/2002) 03/28,06/28 DM2 (diabetes mellitus, type 2) (Chronic) CKD (chronic kidney disease) stage 3, GFR 30-59 ml/min (Chronic) Dementia (Chronic) Mild intermittent asthma (Chronic) Nephrolithiasis (Chronic) Hospital Course and Treatment Imaging Results: 05/11/18 18:21 Xray Knee [Knee 1 or 2 Views] [RAD] Urgent 05/05/18 09:30 Diet: Regular Diet Is pt able to select menu?: No Diet Comments: SCOOP plate & BUILT UP UTENTSILS Labs (Last 48 Hours) 05/10/18 05/11/18 06:39 06:10 POC Glucose 87 75 Operations: None Procedures: None Summary of Care Provided: The patient is a 78 year old Male with below past medical history hospitalized for fall secondary to dizziness from orthostatic hypotension, complicated by acute on chronic kidney failure, admitted to TCU with debility, here for rehabilitation, strengthening, prior to discharge home with spouse. Discharge home with spouse, resident and resident spouse declined Home Health Care. Patient Problems: Active and Suspected Problems (Last Updated 04/24/18 @ 19:17 by George christianson MD) Fall (Acute) Dizziness (Acute) Debility (Acute) Orthostatic hypotension (Acute) Dehydration (Acute) - Physical Exam Vital Signs Temp Pulse Resp BP Pulse Ox 97.1 F L 63 16 116/64 100 05/11/18 15:16 05/11/18 15:16 05/11/18 15:16 05/11/18 15:16 05/11/18 15:16 Oxygen Delivery Method Room Air Weight: 85.531 kg Body Mass Index (BMI) 29.0 Finger Stick Blood Glucose 103 Intake and Output for Last 24 Hours 05/09/18 05/10/18 05/11/18 23:59 23:59 23:59 Intake Total 660 / 660 840 / 840 720 / 720 Output Total 200 / 200 Balance 660 / 660 640 / 640 720 / 720 POC Glucose 05/11/18 06:10 POC Glucose 75 Discharge Diet: No Restrictions Discharge Activity: Return to Normal Activity, May Shower, Use Walker Weight Bearing Status: Weight bearing as tolerated Call your doctor if you observe: Fever of 101 or Higher, Inability to urinate, Inability to have a bowel movement, Shortness of breath, Chest pain, Uncontrolled pain Home Medications: Medications to take at Discharge Aspirin E.C. [Ecotrin] 81 mg PO DAILY@0800 09/15/13 Escitalopram Oxalate [Lexapro] 10 mg PO DAILY 09/15/13 Pioglitazone [Actos] 30 mg PO DAILY 09/15/13 Donepezil HCl [Aricept] 10 mg PO QHS 02/27/16 Oxybutynin [Ditropan] 15 mg PO DAILY 02/27/16 docusate sodium 100 mg capsule 100 mg PO DAILY PRN cap 02/24/18 Clopidogrel Bisulfate [Plavix] 75 mg PO DAILY 04/30/18 Ezetimibe [Zetia] 10 mg PO DAILY 04/30/18 Ramipril 5 mg PO DAILY 04/30/18 Acetaminophen [Tylenol] 1,000 mg PO Q6H PRN tablet 05/11/18 Mineral Oil/Petrolatum,White [Eucerin] 1 applic TOPICAL DAILY@2200 jar 05/11/18 Primary Care Physician: Daiana Andrew NP-C [Primary Care Provider] - Please follow up with your Primary Care Physician in: 1 week. Please Follow Up With: Daiana Andrew NP-C Disposition: Home Minutes spent on discharge:: 30 Patient Condition:: Stable Medical Necessity - Tobacco Use Smoking Status: Former smoker Tobacco Use: Non-smoker Meaningful Use Info Meaningful Use Diagnoses (Choose all that apply): None applicable
[2018-05-12 06:45] LABS: Bedside Glucose 78 mg/dL (70-110)
[2018-05-12] MEDS: Tolterodine Tartrate 2 MG CAP.SA PO (08:14)
[2018-05-12] MEDS: Ramipril 5 MG Capsule PO (08:14)
[2018-05-12] MEDS: Escitalopram Oxalate 10 MG Tablet PO (08:14)
[2018-05-12] MEDS: Aspirin E.C. 81 MG Tablet PO (08:14)
[2018-05-12] MEDS: Pioglitazone Hydrochloride 15 MG Tablet PO (08:14)
[2018-05-12] MEDS: Clopidogrel Bisulfate 75 MG Tablet PO (08:14)
[2018-05-12] MEDS: Ezetimibe 10 MG Tablet PO (08:14)
[2018-05-12] MEDS: Enoxaparin 40 MG/0.4 ML Syringe SC (08:14)
[2018-05-12 08:18] VITALS: BP 116/58; PULSE 59; RESP 18; O2SAT 96
--- NOTE | 2018-05-12 09:35 | NURSING ---
Addendum entered by Daiana Forrest 05/12/18 17:49: updated on results as well Original Note: xray done to rt knee yesterday, Dr Ellis reviewed, no new orders. updated pt on mild arthritis results.
[2018-05-12 10:00] VITALS: RESP 16; O2SAT 96
[2018-05-12] MEDS: Glucerna Shake 120 ML LIQUID PO ×3 (11:32→19:36)
[2018-05-12 16:00] VITALS: BP 118/58; PULSE 58; RESP 18; TEMP 36.4; O2SAT 97
[2018-05-12] MEDS: Donepezil HCl 10 MG Tablet PO (19:37)
[2018-05-13] MEDS: Glucerna Shake 120 ML LIQUID PO ×3 (05:13→17:10)
[2018-05-13 06:41] LABS: Bedside Glucose 84 mg/dL (70-110)
[2018-05-13] MEDS: Clopidogrel Bisulfate 75 MG Tablet PO (08:14)
[2018-05-13] MEDS: Tolterodine Tartrate 2 MG CAP.SA PO (08:14)
[2018-05-13] MEDS: Aspirin E.C. 81 MG Tablet PO (08:14)
[2018-05-13] MEDS: Escitalopram Oxalate 10 MG Tablet PO (08:14)
[2018-05-13] MEDS: Pioglitazone Hydrochloride 15 MG Tablet PO (08:14)
[2018-05-13] MEDS: Ramipril 5 MG Capsule PO (08:14)
[2018-05-13] MEDS: Enoxaparin 40 MG/0.4 ML Syringe SC (08:14)
[2018-05-13] MEDS: Ezetimibe 10 MG Tablet PO (08:15)
[2018-05-13 15:13] VITALS: BP 104/51; PULSE 70; RESP 16; TEMP 36.3; O2SAT 97
[2018-05-13] MEDS: Donepezil HCl 10 MG Tablet PO (21:57)
[2018-05-14] MEDS: Glucerna Shake 120 ML LIQUID PO (05:01)
[2018-05-14 06:45] LABS: Bedside Glucose 91 mg/dL (70-110)
[2018-05-14] MEDS: Clopidogrel Bisulfate 75 MG Tablet PO (10:07)
[2018-05-14] MEDS: Senna/Docusate Sodium 1 Tablet PO (10:07)
[2018-05-14] MEDS: Aspirin E.C. 81 MG Tablet PO (10:07)
[2018-05-14] MEDS: Ezetimibe 10 MG Tablet PO (10:08)
[2018-05-14] MEDS: Tolterodine Tartrate 2 MG CAP.SA PO (10:08)
[2018-05-14] MEDS: Pioglitazone Hydrochloride 15 MG Tablet PO (10:08)
[2018-05-14] MEDS: Escitalopram Oxalate 10 MG Tablet PO (10:08)
[2018-05-14] MEDS: Polyethylene Glycol 3350 17 GM PACKET PO (10:08)
[2018-05-14] MEDS: Ramipril 5 MG Capsule PO (10:08)
[2018-05-14] MEDS: Enoxaparin 40 MG/0.4 ML Syringe SC (10:08)
--- NOTE | 2018-05-14 10:52 | CASEMGMT ---
Insurance Notified insurance of resident discharge to home with spouse on this day, 05/14/18. Auth#[id number] SHAWN Landa
[2018-05-14 11:36] LABS: Bedside Glucose 126 mg/dL (70-110)
[2018-05-14 12:02] VITALS: BP 129/67; PULSE 61; RESP 16; TEMP 36.3; O2SAT 97
== END 2018-05-14 12:00 | disposition home health service (06) | DRG 948 ==
PROVIDERS: Admitting Provider Family Medicine Geriatric Medicine; Family Provider Nurse Practitioner; PCP Nurse Practitioner; Referring Provider Family Medicine Geriatric Medicine; Visit Provider Family Medicine Geriatric Medicine
DX: R53.81 Other malaise (principal); E11.22 Type 2 diabetes mellitus with diabetic chronic kidney disease; I12.9 Hypertensive chronic kidney disease with stage 1 through stage 4 chronic kidney disease, or unspecified chronic kidney disease; N18.3 Chronic kidney disease, stage 3 (moderate); N32.81 Overactive bladder; E78.5 Hyperlipidemia, unspecified; F01.50 Vascular dementia, unspecified severity, without behavioral disturbance, psychotic disturbance, mood disturbance, and anxiety; F32.9 Major depressive disorder, single episode, unspecified; I25.10 Atherosclerotic heart disease of native coronary artery without angina pectoris; K21.9 Gastro-esophageal reflux disease without esophagitis; Z86.73 Personal history of transient ischemic attack (TIA), and cerebral infarction without residual deficits; J45.20 Mild intermittent asthma, uncomplicated; Z95.1 Presence of aortocoronary bypass graft; Z87.891 Personal history of nicotine dependence; E03.9 Hypothyroidism, unspecified
CPT/HCPCS: 36415; 73560; 80048; 82962; 85025; 92507; 92523; 92526; 92610; 97110; 97116; 97162; 97166; 97530; 97535; 97802; J7030

== ENCOUNTER 2018-05-31 11:47 | Inpatient (IN) | payer MEDICARE, SELFPAY ==
[2018-05-31] VITALS (14 sets, daily range): BP systolic 115–136; BP diastolic 52–76; PULSE 56–85; RESP 16–22; TEMP 36.4–36.9; O2SAT 95–100; BMI 26.6; BMI 26.7; BMI 26.9
--- NOTE | 2018-05-31 13:07 | RAD_ITS ---
STUDY: X-RAY CHEST REASON FOR EXAM: Male, 78 years old. Mid chest pain. TECHNIQUE: Single AP portable view of the chest. COMPARISON: Comparison is made with prior study dated February 27, 2016. FINDINGS: EKG electrode are seen. Stable pleural parenchymal changes are seen at the left lung base. Sternal cerclage wires and vascular clips are present from a prior sternotomy and coronary artery bypass graft procedure (CABG). Normal mediastinum and demi. Normal visualized pulmonary arteries. There is atherosclerotic calcification of the aortic arch with tortuosity. Normal visualized thoracic spine. Normal visualized ribs, clavicles, and shoulders. There is no demonstrated abnormality of the visualized soft tissue structures of the upper abdomen. RAD/Chest 1 View (Portable) IMPRESSION: Status post CABG. Stable pleural parenchymal changes at the left lung base. Electronically Signed: Cuba Hilton MD at 13:40 EST , Service support ,
--- NOTE | 2018-05-31 13:08 | EKG12_ITS ---
Test Reason : CP Blood Pressure : / mmHG Vent. Rate : 055 BPM Atrial Rate : 055 BPM P-R Int : 150 ms QRS Dur : 082 ms QT Int : 458 ms P-R-T Axes : 033 000 038 degrees QTc Int : 438 ms Sinus bradycardia Otherwise normal ECG Confirmed by SALUD CAMPBELL, ARTIS ([id number]), order editor SARKIS MARTIN ([id number]) on 06/02/2018 1:54:13 PM Referred By: EDPHYS Confirmed By:ARTIS BRANNON MD
--- NOTE | 2018-05-31 13:09 | CT_ITS ---
STUDY: CT ABDOMEN AND PELVIS WITHOUT CONTRAST REASON FOR EXAM: Male, 78 years old. Low back pain, chest pain and confusion. RADIATION DOSAGE (If Supplied By Facility): CTDIvol = ( 14.49 ) mGy, DLP = ( 743.30 ) mGycm TECHNIQUE: Transaxial images were obtained from the dome of the diaphragm to the symphysis pubis without oral contrast, and without intravenous contrast. Sagittal and coronal images were reconstructed. Individualized dose optimization techniques were used for this CT. COMPARISON: Comparison is made with prior study dated April 24, 2018. FINDINGS: Mild pleural thickening on the left side with the infiltration and/or scarring at the left lung base. This is unchanged and may represent round atelectasis. Mild increased markings at the right lung base suggest scarring. Coronary artery calcification. Normal liver. Normal gallbladder and extrahepatic biliary system. Normal spleen. Normal pancreas. Normal bilateral adrenal glands. Stable right renal cysts. Complicated cystic mass in the lower pole of the right kidney with calcifications and septations. This is unchanged. There is also evidence of a 6.9 mm calculus in the lower pole of the right kidney. Stable 4 mm calculus at the right ureterovesical junction. Stable 2.5 cm cyst along the superior medial portion of the left kidney. Stable 6 mm calculus in the lower pole calyx of the left kidney. There is a moderate-sized hiatal hernia. Normal small intestine. There are multiple colonic diverticula consistent with diverticulosis. The appendix is visualized and appears normal. There is diffuse atherosclerotic calcification of the abdominal aorta and major visceral branches, without a demonstrated aneurysm. Normal inferior vena cava. Normal retroperitoneum. Normal urinary bladder. There are prostatic calcifications. Small bilateral inguinal hernias. Stable loss of height of the L1 vertebra. Mild dextroscoliosis. This space narrowing and degeneration at the L5-S1 level. CT/Abdomen/Pelvis without Cont IMPRESSION: Scarring and possible round atelectasis at the left lung base. Stable bilateral renal cysts worse on the right side. Complicated cyst in the lower pole of the right kidney. 4 mm calcific density at the right ureterovesical junction. Electronically Signed: Cuba Hilton MD at 15:25 EST , Service support ,
[2018-05-31] MEDS: Ipratropium/Albuterol Sulfate 3 ML AMPUL.NEB INHALATION ×2 (13:23→20:20)
[2018-05-31 13:55] LABS: Absolute Lymphocyte Count 1.31 X10^3/ul (0.83-4.51); Absolute Neutrophil Count 3.4 X10^3/uL (2.0-7.7); Basophil# 0.03 X10^3/uL; Basophil% 0.5 % (0-1); Eosinophils% 5.3 % (0-5); Hematocrit 40.7 % (40-54); Hemoglobin 12.8 g/dl (13.0-16.5); Lymphocyte # 1.31 X10^3/ul (4.0); Lymphocyte % 22.9 % (19-41); Mean Corp Hgb Conc 31.4 g/gl (32-36); Mean Corpuscular Volume 92.3 fL (80-94); Mean Platelet Vol. 11.3 fl (6.2-12.0); Monocyte# 0.67 X10^3/uL; Monocyte% 11.7 % (0-10); Neutrophil # 3.39 X10^3/uL (2.7-7.7); Neutrophil % 59.4 % (47-70); Platelet Count 146 K/mm3 (150-450); RBC Distribution Width CV 14.6 % (11.6-14.6); RBC Distribution Width SD 47.9 fl (35.1-43.9); Red Blood Count 4.41 M/mm3 (4.6-6.2); White Blood Count 5.7 K/mm3 (4.4-11.0)
[2018-05-31 13:56] LABS: POSITIVE COUNT NO; POSITIVE DIFFERENTIAL NO; POSITIVE MORPHOLOGY NO
[2018-05-31 14:17] LABS: ALB/GLOB Ratio 0.9 RATIO (0.9-2.4); AST(SGOT) 18 U/L (15-37); Alanine Aminotransfer ALT/SGPT 16 U/L (16-61); Albumin, Serum 3.5 g/dL (3.2-5.0); Alkaline Phosphatase 71 U/L (45-117); Anion Gap 6 (5-15); BUN 18 mg/dL (7-18); BUN/Creat Ratio 10.9 RATIO (10-20); Calcium,Total 8.5 mg/dL (8.5-10.1); Chloride 106 mmol/L (98-107); Creatinine, Serum 1.65 mg/dL (0.70-1.30); EST Glomerular Filtration Rate 43 mL/min (>60); Est Glom Filt Rate - Afr Amer 52 mL/min (>60); Estimated Creatinine Clearance 37.48 ml/min; Globulin 4.1 g/dL (2.2-4.2); Glucose 84 mg/dL (74-106); Potassium 4.4 mmol/L (3.5-5.1); Protein, Total 7.6 g/dL (6.4-8.2); Sodium Level 139 mmol/L (136-145)
[2018-05-31 14:26] LABS: BNP,B-Type NATRIURETIC PEPTIDE 70.9 pg/mL (0-100)
--- NOTE | 2018-05-31 15:37 | ED.VISSUMM ---
- ER Visit Summary Date of Service: 05/31/18 Chief Complaint: Back pain, shortness of breath, confusion, hypoxia History of Present Illness: The patient is a 78 M who was seen in outpatient center was found to be hypoxic, increasing confusion. Complaining of shortness of breath productive cough. His had similar symptoms but she improved. There is no reported fevers. Physical Examination: Patient is comfortable on 2 L of oxygen. Slightly dry mucous membranes, no obvious facial deformity No C-spine tenderness supple neck. Regular rate and rhythm without any obvious murmurs Course, some wheezing mostly on the left, speaking in full sentences without any obvious respiratory distress Abdomen soft with slight suprapubic pain. Moves all extremities without any difficulty or pain. Skin does not show any obvious rashes or lesions, no trauma. 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 I talked to the hospitalist for admission because of the abdominal pain I get a CT this was unremarkable. Disposition: Admit stable condition Impression: Hypoxia Clinical pneumonia This note was generated with EXO5 dictation software. It may contain incorrect words, spelling, and punctuation that were not noted in review of the chart prior to signing ED Disposition - Plan for ED Patient: Referrals: Daiana Andrew, BOTTLE CASER-C [Primary Care Provider] -
--- NOTE | 2018-05-31 15:42 | PCM.HP.STD ---
<Patricia Huynh - Last Filed: 05/31/18 16:55> Problem List (1) Debility Status: Chronic (2) Vascular dementia Status: Chronic (3) Coronary artery disease Status: Chronic (4) Hyperlipidemia Status: Chronic (5) Hypothyroidism Status: Chronic (6) Depression Status: Chronic (7) Overactive bladder Status: Chronic (8) History of CVA (cerebrovascular accident) Status: Chronic (9) Atherosclerosis of [place] coronary artery of [place] heart without angina pectoris Status: Chronic Comment: MACIAS to LAD, aortocoronary left radial artery to obtuse marginal artery, SVG to PDA; (10) GERD (gastroesophageal reflux disease) Status: Chronic (11) History of angioplasty Status: Chronic Comment: Angioplasty and stenting to 70% stenosis in proximal LAD, angioplasty and stenting to proximal diagonal LAD at bifurcation, and atherectomy and stenting to 80% stenosis in mid first diagonal artery in April 2011. (12) S/P CABG x 3 Status: Chronic Comment: MACIAS to LAD, aortocoronary left radial artery to obtuse marginal artery, SVG to PDA (13) H/O percutaneous transluminal coronary angioplasty Status: Chronic Comment: stent to diagonal 1 (14) History of cardiac catheterization Status: Chronic Comment: 03/28,06/28 (15) DM2 (diabetes mellitus, type 2) Status: Chronic (16) CKD (chronic kidney disease) stage 3, GFR 30-59 ml/min Status: Chronic (17) Mild intermittent asthma Status: Chronic (18) Nephrolithiasis Status: Chronic History of Present Illness Date of Admission: 05/31/18 Chief Complaint: Hypoxia, cough, confusion. The patient is a 78 year old M who presents emergency room with multiple complaints. Patient reports he has had a cough for approximately 1 week. Denies fever, chills. Complains of intermittent chest pain and back pain. Denies significant shortness of breath. Patient reports his cough is productive of white sputum. at bedside states patient has had increased confusion. He was seen at primary care physician office today and noted to be hypoxic. He was referred to emergency room at that time for further evaluation. He has a past medical history of vascular dementia, CAD status post CABGX3, hyperlipidemia, hypothyroidism, depression, history of CVA, GERD, type 2 diabetes mellitus, chronic kidney disease stage III, mild intermittent asthma. Past Medical History Past Medical History (Chronic Problems): Chronic Problems (Last Updated 04/24/18 @ 19:17 by George Pimentel MD) Debility (Chronic) Vascular dementia (Chronic) Coronary artery disease (Chronic) Hyperlipidemia (Chronic) Hypothyroidism (Chronic) Depression (Chronic) Overactive bladder (Chronic) History of CVA (cerebrovascular accident) (Chronic) Atherosclerosis of [place] coronary artery of [place] heart without angina pectoris (Chronic) MACIAS to LAD, aortocoronary left radial artery to obtuse marginal artery, SVG to PDA; GERD (gastroesophageal reflux disease) (Chronic) History of angioplasty (Chronic 11/06/89) Angioplasty and stenting to 70% stenosis in proximal LAD, angioplasty and stenting to proximal diagonal LAD at bifurcation, and atherectomy and stenting to 80% stenosis in mid first diagonal artery in April 2011. 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) MACIAS to LAD, aortocoronary left radial artery to obtuse marginal artery, SVG to PDA H/O percutaneous transluminal coronary angioplasty (Chronic ~05/13/11) stent to diagonal 1 History of cardiac catheterization (Chronic ~03/2002) 03/28,03/04 DM2 (diabetes mellitus, type 2) (Chronic) CKD (chronic kidney disease) stage 3, GFR 30-59 ml/min (Chronic) Mild intermittent asthma (Chronic) Nephrolithiasis (Chronic) Medical History: Medical History (Last Updated 04/24/18 @ 19:17 by George Pimentel MD) Atherosclerosis of [place] coronary artery of [place] heart without angina pectoris (Chronic) I25.10 MACIAS to LAD, aortocoronary left radial artery to obtuse marginal artery, SVG to PDA; GERD (gastroesophageal reflux disease) (Chronic) K21.9 DM2 (diabetes mellitus, type 2) (Chronic) E11.9 CKD (chronic kidney disease) stage 3, GFR 30-59 ml/min (Chronic) Mild intermittent asthma (Chronic) J45.20 Nephrolithiasis (Chronic) History of Gerard's esophagus Z87.19 History of asthma Z87.09 History of irritable bowel syndrome Z87.19 Hypothyroidism E03.9 Allergies iodine Allergy (Verified 05/31/18 11:49) Hives Penicillins Adverse Reaction (Verified 05/31/18 11:49) Rash Home Medications: Ambulatory Orders Medication Instructions Recorded Aspirin E.C. [Ecotrin] 81 mg PO DAILY@0800 09/15/13 Escitalopram Oxalate [Lexapro] 10 mg PO DAILY 09/15/13 Pioglitazone [Actos] 30 mg PO DAILY 09/15/13 Donepezil HCl [Aricept] 10 mg PO QHS 02/27/16 Oxybutynin [Ditropan] 15 mg PO DAILY 02/27/16 docusate sodium 100 mg capsule 100 mg PO DAILY PRN cap 02/24/18 Clopidogrel Bisulfate [Plavix] 75 mg PO DAILY 04/30/18 Ezetimibe [Zetia] 10 mg PO DAILY 04/30/18 Ramipril 5 mg PO DAILY 05/31/18 Surgical History: Surgical History (Last Reviewed 05/31/18 @ 16:42 by MADIHA Qureshi) History of angioplasty (Chronic) Onset Date: 11/06/89 Z98.62 Angioplasty and stenting to 70% stenosis in proximal LAD, angioplasty and stenting to proximal diagonal LAD at bifurcation, and atherectomy and stenting to 80% stenosis in mid first diagonal artery in April 2011. S/P CABG x 3 (Chronic) Onset Date: 05/09/02 Z95.1 MACIAS to LAD, aortocoronary left radial artery to obtuse marginal artery, SVG to PDA H/O percutaneous transluminal coronary angioplasty (Chronic) Onset Date: ~05/13/11 Z98.61 stent to diagonal 1 History of cardiac catheterization (Chronic) Onset Date: ~03/2002 Z98.890 03/28,06/28 History of colon resection Onset Date: 09/15/13 Z90.49 History of hemorrhoidectomy Z98.890 History of right inguinal hernia repair Z98.890, Z87.19 History of squamous cell carcinoma excision Onset Date: 10/23/11 Z98.890, Z85.9 left christianity with rhomboid transposition skin flap reconstruction History of tonsillectomy Z90.89 History of ureter stent Onset Date: ~07/2008 Surgical History: coronary bypass surgery - x 3., herniorrhaphy - Hiatal., tonsillectomy Psychiatric History: Depression Lives: Spouse/ Significant Other Smoking Status: Former smoker Alcohol: None Drugs: None - *Family History Maternal Family History: Family History (Last Reviewed 05/31/18 @ 16:43 by MADIHA Qureshi) Father CVA (cerebral vascular accident) Brother Heart disease History Items: - - Denies maternal cardiac history Paternal Family History: Family History (Last Reviewed 05/31/18 @ 16:43 by MADIHA Qureshi) Father CVA (cerebral vascular accident) Brother Heart disease Review of Systems Constitutional: Denies: Chills, Fever, Weight Change HEENT: Denies: Head Aches, Sinus Congestion, Sinus Drainage VTE Information - Inpt Only VTE Present on Admission: No VTE Mechan Device Prophylaxis: None VTE Pharm Prophylaxis ordered?: Yes - Physical Exam Vital Signs Temp Pulse Resp BP Pulse Ox 98.5 F 57 L 20 H 130/69 H 96 05/31/18 11:51 05/31/18 13:24 05/31/18 13:24 05/31/18 11:51 05/31/18 11:51 Oxygen Delivery Method Room Air Weight: 186 lb Body Mass Index (BMI) 26.6 Finger Stick Blood Glucose 103 Microbiology Past 72 Hours 05/31/18 13:25 Influenza Types A,B Direct FA (VIVIANE) - Final Mucosa - Nasopharyngeal Laboratory Tests Past 24 Hrs 05/31/18 05/31/18 05/31/18 13:35 13:35 13:35 WBC 5.7 RBC 4.41 L Hgb 12.8 L Hct 40.7 MCV 92.3 MCH 29.0 MCHC 31.4 L RDW 14.6 RDW Differential 47.9 H Plt Count 146 L MPV 11.3 Immature Gran % (Auto) 0.200 Neut % (Auto) 59.4 Lymph % (Auto) 22.9 Hardy % (Auto) 11.7 H Eos % (Auto) 5.3 H Baso % (Auto) 0.5 Absolute Neuts (auto) 3.4 Absolute Lymphs (auto) 1.31 Total Counted Not Reportable Sodium 139 Potassium 4.4 Chloride 106 Carbon Dioxide 27.0 Anion Gap 6 BUN 18 Creatinine 1.65 H Estim Creat Clear Calc 37.48 Est GFR (MDRD) Af Amer 52 L Est GFR (MDRD) Non-Af 43 L BUN/Creatinine Ratio 10.9 Glucose 84 Calcium 8.5 Total Bilirubin 0.50 AST 18 ALT 16 Alkaline Phosphatase 71 Troponin I < 0.015 B-Natriuretic Peptide 70.9 Total Protein 7.6 Albumin 3.5 Globulin 4.1 Albumin/Globulin Ratio 0.9 Assessment/Plan 1. Suspected community-acquired pneumonia with associated hypoxia-patient with productive cough, hypoxia on admission. Afebrile. No leukocytosis. Chest x-ray shows stable pleural parenchymal changes at the left lung base. IV Levaquin. Albuterol DuoNeb aerosols. Continue supplement oxygen to maintain O2 at or above 90%. Send sputum for culture. 2. Acute kidney injury on chronic kidney disease stage III-suspect secondary to dehydration. IV fluids. Trend BMP. 3. Acute metabolic encephalopathy secondary to #1/#2 with underlying vascular dementia-CT of brain ordered, pending. Treat underlying processes. 4. Type 2 diabetes [id number] ACHS with SSI. 5. Hyperlipidemia-continue Zetia. 6. Hypertension-stable, hold CATHERINE inhibitor given acute kidney injury. 7. Dementia, without behavioral disturbance-Aricept. 8. Hypothyroidism-continue Synthroid. 9. Depression-continue Lexapro regimen. 10. History of CVA-continue aspirin, Plavix, Zetia. 11. GERD-not on regimen. 12. Mild intermittent asthma-no acute exacerbation. 13. CAD status post CABG and stents-Follows with Dr. Melvin. Continue aspirin, Plavix, ramipril, Zetia. DVT prophylaxis-heparin subcu. This patient was seen by MADIHA Qureshi under the supervision of Dr. Arnett. <Lilia Arnett - Last Filed: 05/31/18 22:43> History of Present Illness The patient is a 78 year old M [] Past Medical History Medical History: Medical History (Last Updated 04/24/18 @ 19:17 by George Pimentel MD) Atherosclerosis of [place] coronary artery of [place] heart without angina pectoris (Chronic) I25.10 MACIAS to LAD, aortocoronary left radial artery to obtuse marginal artery, SVG to PDA; GERD (gastroesophageal reflux disease) (Chronic) K21.9 DM2 (diabetes mellitus, type 2) (Chronic) E11.9 CKD (chronic kidney disease) stage 3, GFR 30-59 ml/min (Chronic) Mild intermittent asthma (Chronic) J45.20 Nephrolithiasis (Chronic) History of Gerard's esophagus Z87.19 History of asthma Z87.09 History of irritable bowel syndrome Z87.19 Hypothyroidism E03.9 Allergies iodine Allergy (Verified 05/31/18 11:49) Hives Penicillins Allergy (Verified 05/31/18 15:47) Rash Surgical History: Surgical History (Last Reviewed 05/31/18 @ 16:42 by MADIHA Qureshi) History of angioplasty (Chronic) Onset Date: 11/06/89 Z98.62 Angioplasty and stenting to 70% stenosis in proximal LAD, angioplasty and stenting to proximal diagonal LAD at bifurcation, and atherectomy and stenting to 80% stenosis in mid first diagonal artery in April 2011. S/P CABG x 3 (Chronic) Onset Date: 05/09/02 Z95.1 MACIAS to LAD, aortocoronary left radial artery to obtuse marginal artery, SVG to PDA H/O percutaneous transluminal coronary angioplasty (Chronic) Onset Date: ~05/13/11 Z98.61 stent to diagonal 1 History of cardiac catheterization (Chronic) Onset Date: ~03/2002 Z98.890 03/28,06/28 History of colon resection Onset Date: 09/15/13 Z90.49 History of hemorrhoidectomy Z98.890 History of right inguinal hernia repair Z98.890, Z87.19 History of squamous cell carcinoma excision Onset Date: 10/23/11 Z98.890, Z85.9 left christianity with rhomboid transposition skin flap reconstruction History of tonsillectomy Z90.89 History of ureter stent Onset Date: ~07/2008 - *Family History Maternal Family History: Family History (Last Reviewed 05/31/18 @ 16:43 by MADIHA Qureshi) Father CVA (cerebral vascular accident) Brother Heart disease Paternal Family History: Family History (Last Reviewed 05/31/18 @ 16:43 by MADIHA Qureshi) Father CVA (cerebral vascular accident) Brother Heart disease - Physical Exam Vital Signs Temp Pulse Resp BP Pulse Ox 97.5 F L 72 18 121/61 H 95 05/31/18 20:59 05/31/18 20:59 05/31/18 20:59 05/31/18 20:59 05/31/18 20:59 Oxygen Flow Rate (L/min) 2 Oxygen Delivery Method Nasal Cannula Weight: 82.7 kg Body Mass Index (BMI) 26.9 Finger Stick Blood Glucose 103 Intake and Output for Last 24 Hours 05/29/18 05/30/18 05/31/18 23:59 23:59 23:59 Intake Total 120 / 120 Output Total 200 / 200 Balance -80 / -80 Microbiology Past 72 Hours 05/31/18 13:25 Influenza Types A,B Direct FA (VIVIANE) - Final Mucosa - Nasopharyngeal Laboratory Tests Past 24 Hrs 05/31/18 05/31/18 05/31/18 13:35 13:35 13:35 WBC 5.7 RBC 4.41 L Hgb 12.8 L Hct 40.7 MCV 92.3 MCH 29.0 MCHC 31.4 L RDW 14.6 RDW Differential 47.9 H Plt Count 146 L MPV 11.3 Immature Gran % (Auto) 0.200 Neut % (Auto) 59.4 Lymph % (Auto) 22.9 Hardy % (Auto) 11.7 H Eos % (Auto) 5.3 H Baso % (Auto) 0.5 Absolute Neuts (auto) 3.4 Absolute Lymphs (auto) 1.31 Total Counted Not Reportable D-Dimer Quant (PE/DVT) Sodium 139 Potassium 4.4 Chloride 106 Carbon Dioxide 27.0 Anion Gap 6 BUN 18 Creatinine 1.65 H Estim Creat Clear Calc 37.48 Est GFR (MDRD) Af Amer 52 L Est GFR (MDRD) Non-Af 43 L BUN/Creatinine Ratio 10.9 Glucose 84 Calcium 8.5 Total Bilirubin 0.50 AST 18 ALT 16 Alkaline Phosphatase 71 Troponin I < 0.015 B-Natriuretic Peptide 70.9 Total Protein 7.6 Albumin 3.5 Globulin 4.1 Albumin/Globulin Ratio 0.9 Urine Color Urine Clarity Urine pH Ur Specific [place] Urine Protein Urine Glucose (UA) Urine Ketones Urine Occult Blood Urine Nitrite Urine Bilirubin Urine Urobilinogen Ur Leukocyte Esterase Urine RBC Urine WBC Ur Squamous Epith Cells Urine Bacteria Urine Mucus 05/31/18 05/31/18 13:35 16:20 WBC RBC Hgb Hct MCV MCH MCHC RDW RDW Differential Plt Count MPV Immature Gran % (Auto) Neut % (Auto) Lymph % (Auto) Hardy % (Auto) Eos % (Auto) Baso % (Auto) Absolute Neuts (auto) Absolute Lymphs (auto) Total Counted D-Dimer Quant (PE/DVT) 0.42 Sodium Potassium Chloride Carbon Dioxide Anion Gap BUN Creatinine Estim Creat Clear Calc Est GFR (MDRD) Af Amer Est GFR (MDRD) Non-Af BUN/Creatinine Ratio Glucose Calcium Total Bilirubin AST ALT Alkaline Phosphatase Troponin I B-Natriuretic Peptide Total Protein Albumin Globulin Albumin/Globulin Ratio Urine Color Yellow Urine Clarity Clear Urine pH 5.0 Ur Specific [place] 1.020 Urine Protein 15 H Urine Glucose (UA) Normal Urine Ketones Negative Urine Occult Blood Negative Urine Nitrite Negative Urine Bilirubin Negative Urine Urobilinogen 1 H Ur Leukocyte Esterase 25 H Urine RBC 0-5 SEEN Urine WBC 0-5 SEEN Ur Squamous Epith Cells 0-5 SEEN Urine Bacteria 0 SEEN Urine Mucus 0 SEEN Assessment/Plan This patient was seen in conjunction with Patricia Huynh NP. I have independently interviewed and examined the patient and reviewed pertinent historical, laboratory, and other data. Please refer to her note for patient's presentation, findings, and recommendations. Into 8-year-old male with multiple comorbidities, including dementia, CAD status post CABG, hyperlipidemia, hypothyroidism who comes in with complaints of cough ongoing for 1 week as well as intermittent chest pain and back pain. Patient admits to productive white sputum. He lives at home with the , and found patient increasingly confused. He was sent to the primary care physician's office, and found to be hypoxic and sent to the emergency department. PMHx: as discussed per HPI PSHX: History of CABG, hemorrhoidectomy, colon resection, hernia repair, tonsillectomy FHX: No pertinent history SHX: , lives with his , no smoking, alcohol or illicit drug use Cannot reliably obtain review of systems because of patient underlying dementia Physical Exam: Vitals in the ED were T 98.5 F, heart rate is 56, blood pressure of 130/69, respiratory rate was 16, SPO2 was 99% on room air Gen: Comfortable, not pale, not jaundiced, alert oriented x3 CVS:HS I +II, regular, tachycardic, 4/6 holosystolic murmur RESP: Diminished at lung bases, no wheezes heard GI: Bowel sounds present, soft, nontender, no palpable organs EXT:No edema Labs reviewed -WBC count is 5.7, hemoglobin 12.8, platelet is 146, BMP is unremarkable except for BUN of 18, creatinine 1.65 Urinalysis is unremarkable Influenza screen was negative Blood cultures pending, respiratory panel pending CT scan of the brain is negative ASSESSMENT: 1. Suspected community-acquired pneumonia with hypoxia 2. JAVIER on CKD stage III secondary to dehydration 3. Possible acute metabolic encephalopathy, underlying vascular dementia, likely etiology may be related to dehydration, hypoxia 4. Hypertension 5. Hyperlipidemia 6. Type II DM 7. Dementia 8. Depression 9. History of CVA Plan: Admit to PCU, droplet precaution, follow respiratory panel Gentle IV fluids Trend labs in a.m. Continue IV antibiotics for now, Repeat chest x-ray in a.m., if negative will recommend discontinue antibiotics Continue to monitor blood sugars, Continue home medications Code Visit Inpatient E&M: 67585 Init Hosp L3
--- NOTE | 2018-05-31 15:43 | ED.DCSUM_ITS ---
- ER Visit Summary Date of Service: 05/31/18 Chief Complaint: Back pain, shortness of breath, confusion, hypoxia History of Present Illness: The patient is a 78 M who was seen in outpatient center was found to be hypoxic, increasing confusion. Complaining of shortness of breath productive cough. His had similar symptoms but she improved. There is no reported fevers. Physical Examination: Patient is comfortable on 2 L of oxygen. Slightly dry mucous membranes, no obvious facial deformity No C-spine tenderness supple neck. Regular rate and rhythm without any obvious murmurs Course, some wheezing mostly on the left, speaking in full sentences without any obvious respiratory distress Abdomen soft with slight suprapubic pain. Moves all extremities without any difficulty or pain. Skin does not show any obvious rashes or lesions, no trauma. 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 I talked to the hospitalist for admission because of the abdominal pain I get a CT this was unremarkable. Disposition: Admit stable condition Impression: Hypoxia Clinical pneumonia This note was generated with [employer] dictation software. It may contain incorrect words, spelling, and punctuation that were not noted in review of the chart prior to signing ED Disposition - Plan for ED Patient: Referrals: Daiana Andrew, [employer]ABLE [employer] EQU[employer]MENT REPAIRER-C [Primary Care Provider] -
--- NOTE | 2018-05-31 15:46 | HP.PCM_ITS ---
Addendum entered and electronically signed by MADIHA Qureshi 06/01/18 12:13: Code Visit ROS and Exam obtained/performed by this INSTRUCTIONAL MANAGER at time of H&P- Review of Systems Constitutional: Reports: Malaise, Fatigue. Denies: Chills, Fever, Weight Change HEENT: Denies: Nasal Congestion. Denies: Head Aches, Sinus Drainage, Sore Throat Cardiovascular: Denies: Chest Pain, Edema, Light Headedness, Palpitations, Syncope Respiratory: Reports: Cough, Shortness of Breath, Sputum production Gastrointestinal: Denies: Abdominal Pain, Nausea, Vomiting Genitourinary: Denies: Dysuria Musculoskeletal: Denies: Joint Pain, Joint Tenderness- Reports: Back pain Skin: Denies: Rash, Wounds Neurological: Denies: Numbness, Tingling, Focal weakness Psychiatric: Denies: Depression Hematologic/ Lymphatic: Denies: Easy Bruising, Easy Bleeding Physical Exam General: Alert, Oriented x3, Cooperative HEENT: Atraumatic, PERRLA, EOMI, Normocephalic Neck: Supple, No JVD, Negative Carotid Bruits Lungs: Diminished, clear to auscultation Cardiovascular: Regular rate, Regular Rhythm, Normal S1, Normal S2, No murmurs Abdomen: Bowel Sounds Present, Soft, Non Tender, Non-Distended Extremities: No clubbing, No cyanosis, No edema, Capillary Refill Less than 3 Seconds Skin: No rashes, No breakdown Musculoskeletal: No Tenderness to Palpation of Joints or Extremities Neurological: Cranial nerves II-XII grossly intact, Neuro grossly intact Psych/Mental Status: Normal Affect, Appropriate Original Note: <Patricia Huynh - Last Filed: 05/31/18 16:55> Problem List (1) Debility Status: Chronic (2) Vascular dementia Status: Chronic (3) Coronary artery disease Status: Chronic (4) Hyperlipidemia Status: Chronic (5) Hypothyroidism Status: Chronic (6) Depression Status: Chronic (7) Overactive bladder Status: Chronic (8) History of CVA (cerebrovascular accident) Status: Chronic (9) Atherosclerosis of [place] coronary artery of [place] heart without angina pectoris Status: Chronic Comment: MACIAS to LAD, aortocoronary left radial artery to obtuse marginal artery, SVG to PDA; (10) GERD (gastroesophageal reflux disease) Status: Chronic (11) History of angioplasty Status: Chronic Comment: Angioplasty and stenting to 70% stenosis in proximal LAD, angioplasty and stenting to proximal diagonal LAD at bifurcation, and atherectomy and stenting to 80% stenosis in mid first diagonal artery in April 2011. (12) S/P CABG x 3 Status: Chronic Comment: MACIAS to LAD, aortocoronary left radial artery to obtuse marginal artery, SVG to PDA (13) H/O percutaneous transluminal coronary angioplasty Status: Chronic Comment: stent to diagonal 1 (14) History of cardiac catheterization Status: Chronic Comment: 03/28,06/28 (15) DM2 (diabetes mellitus, type 2) Status: Chronic (16) CKD (chronic kidney disease) stage 3, GFR 30-59 ml/min Status: Chronic (17) Mild intermittent asthma Status: Chronic (18) Nephrolithiasis Status: Chronic History of Present Illness Date of Admission: 05/31/18 Chief Complaint: Hypoxia, cough, confusion. The patient is a 78 year old M who presents emergency room with multiple complaints. Patient reports he has had a cough for approximately 1 week. Denies fever, chills. Complains of intermittent chest pain and back pain. Denies significant shortness of breath. Patient reports his cough is productive of white sputum. at bedside states patient has had increased confusion. He was seen at primary care physician office today and noted to be hypoxic. He was referred to emergency room at that time for further evaluation. He has a past medical history of vascular dementia, CAD status post CABGX3, hyperlipidemia, hypothyroidism, depression, history of CVA, GERD, type 2 diabetes mellitus, chronic kidney disease stage III, mild intermittent asthma. Past Medical History Past Medical History (Chronic Problems): Chronic Problems (Last Updated 04/24/18 @ 19:17 by George Pimentel MD) Debility (Chronic) Vascular dementia (Chronic) Coronary artery disease (Chronic) Hyperlipidemia (Chronic) Hypothyroidism (Chronic) Depression (Chronic) Overactive bladder (Chronic) History of CVA (cerebrovascular accident) (Chronic) Atherosclerosis of [place] coronary artery of [place] heart without angina pectoris (Chronic) MACIAS to LAD, aortocoronary left radial artery to obtuse marginal artery, SVG to PDA; GERD (gastroesophageal reflux disease) (Chronic) History of angioplasty (Chronic 11/06/89) Angioplasty and stenting to 70% stenosis in proximal LAD, angioplasty and stenting to proximal diagonal LAD at bifurcation, and atherectomy and stenting to 80% stenosis in mid first diagonal artery in April 2011. 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) MACIAS to LAD, aortocoronary left radial artery to obtuse marginal artery, SVG to PDA H/O percutaneous transluminal coronary angioplasty (Chronic ~05/13/11) stent to diagonal 1 History of cardiac catheterization (Chronic ~03/2002) 03/28,06/28 DM2 (diabetes mellitus, type 2) (Chronic) CKD (chronic kidney disease) stage 3, GFR 30-59 ml/min (Chronic) Mild intermittent asthma (Chronic) Nephrolithiasis (Chronic) Medical History: Medical History (Last Updated 04/24/18 @ 19:17 by George Pimentel MD) Atherosclerosis of [place] coronary artery of [place] heart without angina pectoris (Chronic) I25.10 MACIAS to LAD, aortocoronary left radial artery to obtuse marginal artery, SVG to PDA; GERD (gastroesophageal reflux disease) (Chronic) K21.9 DM2 (diabetes mellitus, type 2) (Chronic) E11.9 CKD (chronic kidney disease) stage 3, GFR 30-59 ml/min (Chronic) Mild intermittent asthma (Chronic) J45.20 Nephrolithiasis (Chronic) History of Gerard's esophagus Z87.19 History of asthma Z87.09 History of irritable bowel syndrome Z87.19 Hypothyroidism E03.9 Allergies iodine Allergy (Verified 05/31/18 11:49) Hives Penicillins Adverse Reaction (Verified 05/31/18 11:49) Rash Home Medications: Ambulatory Orders Medication Instructions Recorded Aspirin E.C. [Ecotrin] 81 mg PO DAILY@0800 09/15/13 Escitalopram Oxalate [Lexapro] 10 mg PO DAILY 09/15/13 Pioglitazone [Actos] 30 mg PO DAILY 09/15/13 Donepezil HCl [Aricept] 10 mg PO QHS 02/27/16 Oxybutynin [Ditropan] 15 mg PO DAILY 02/27/16 docusate sodium 100 mg capsule 100 mg PO DAILY PRN cap 02/24/18 Clopidogrel Bisulfate [Plavix] 75 mg PO DAILY 04/30/18 Ezetimibe [Zetia] 10 mg PO DAILY 04/30/18 Ramipril 5 mg PO DAILY 05/31/18 Surgical History: Surgical History (Last Reviewed 05/31/18 @ 16:42 by MADIHA Qureshi) History of angioplasty (Chronic) Onset Date: 11/06/89 Z98.62 Angioplasty and stenting to 70% stenosis in proximal LAD, angioplasty and stenting to proximal diagonal LAD at bifurcation, and atherectomy and stenting to 80% stenosis in mid first diagonal artery in April 2011. S/P CABG x 3 (Chronic) Onset Date: 05/09/02 Z95.1 MACIAS to LAD, aortocoronary left radial artery to obtuse marginal artery, SVG to PDA H/O percutaneous transluminal coronary angioplasty (Chronic) Onset Date: ~05/13/11 Z98.61 stent to diagonal 1 History of cardiac catheterization (Chronic) Onset Date: ~03/2002 Z98.890 03/28,06/28 History of colon resection Onset Date: 09/15/13 Z90.49 History of hemorrhoidectomy Z98.890 History of right inguinal hernia repair Z98.890, Z87.19 History of squamous cell carcinoma excision Onset Date: 10/23/11 Z98.890, Z85.9 left jew with rhomboid transposition skin flap reconstruction History of tonsillectomy Z90.89 History of ureter stent Onset Date: ~07/2008 Surgical History: coronary bypass surgery - x 3., herniorrhaphy - Hiatal., tonsillectomy Psychiatric History: Depression Lives: Spouse/ Significant Other Smoking Status: Former smoker Alcohol: None Drugs: None - *Family History Maternal Family History: Family History (Last Reviewed 05/31/18 @ 16:43 by MADIHA Qureshi) Father CVA (cerebral vascular accident) Brother Heart disease History Items: - - Denies maternal cardiac history Paternal Family History: Family History (Last Reviewed 05/31/18 @ 16:43 by MADIHA Qureshi) Father CVA (cerebral vascular accident) Brother Heart disease Review of Systems Constitutional: Denies: Chills, Fever, Weight Change HEENT: Denies: Head Aches, Sinus Congestion, Sinus Drainage VTE Information - Inpt Only VTE Present on Admission: No VTE Mechan Device Prophylaxis: None VTE Pharm Prophylaxis ordered?: Yes - Physical Exam Vital Signs Temp Pulse Resp BP Pulse Ox 98.5 F 57 L 20 H 130/69 H 96 05/31/18 11:51 02/04/19 13:24 05/31/18 13:24 05/31/18 11:51 05/31/18 11:51 Oxygen Delivery Method Room Air Weight: 186 lb Body Mass Index (BMI) 26.6 Finger Stick Blood Glucose 103 Microbiology Past 72 Hours 05/31/18 13:25 Influenza Types A,B Direct FA (VIVIANE) - Final Mucosa - Nasopharyngeal Laboratory Tests Past 24 Hrs 05/31/18 05/31/18 05/31/18 13:35 13:35 13:35 WBC 5.7 RBC 4.41 L Hgb 12.8 L Hct 40.7 MCV 92.3 MCH 29.0 MCHC 31.4 L RDW 14.6 RDW Differential 47.9 H Plt Count 146 L MPV 11.3 Immature Gran % (Auto) 0.200 Neut % (Auto) 59.4 Lymph % (Auto) 22.9 [place] % (Auto) 11.7 H Eos % (Auto) 5.3 H Baso % (Auto) 0.5 Absolute Neuts (auto) 3.4 Absolute Lymphs (auto) 1.31 Total Counted Not Reportable Sodium 139 Potassium 4.4 Chloride 106 Carbon Dioxide 27.0 Anion Gap 6 BUN 18 Creatinine 1.65 H Estim Creat Clear Calc 37.48 Est GFR (MDRD) Af Amer 52 L Est GFR (MDRD) Non-Af 43 L BUN/Creatinine Ratio 10.9 Glucose 84 Calcium 8.5 Total Bilirubin 0.50 AST 18 ALT 16 Alkaline Phosphatase 71 Troponin I < 0.015 B-Natriuretic Peptide 70.9 Total Protein 7.6 Albumin 3.5 Globulin 4.1 Albumin/Globulin Ratio 0.9 Assessment/Plan 1. Suspected community-acquired pneumonia with associated hypoxia-patient with productive cough, hypoxia on admission. Afebrile. No leukocytosis. Chest x- ray shows stable pleural parenchymal changes at the left lung base. IV Levaquin. Albuterol DuoNeb aerosols. Continue supplement oxygen to maintain O2 at or above 90%. Send sputum for culture. 2. Acute kidney injury on chronic kidney disease stage III-suspect secondary to dehydration. IV fluids. Trend BMP. 3. Acute metabolic encephalopathy secondary to #1/#2 with underlying vascular dementia-CT of brain ordered, pending. Treat underlying processes. 4. Type 2 diabetes [id number] ACHS with SSI. 5. Hyperlipidemia-continue Zetia. 6. Hypertension-stable, hold CATHERINE inhibitor given acute kidney injury. 7. Dementia, without behavioral disturbance-Aricept. 8. Hypothyroidism-continue Synthroid. 9. Depression-continue Lexapro regimen. 10. History of CVA-continue aspirin, Plavix, Zetia. 11. GERD-not on regimen. 12. Mild intermittent asthma-no acute exacerbation. 13. CAD status post CABG and stents-Follows with Dr. Melvin. Continue aspirin, Plavix, ramipril, Zetia. DVT prophylaxis-heparin subcu. This patient was seen by MADIHA Qureshi under the supervision of Dr. Arnett. <Lilia Arnett - Last Filed: 05/31/18 22:43> History of Present Illness The patient is a 78 year old M [] Past Medical History Medical History: Medical History (Last Updated 04/24/18 @ 19:17 by George Pimentel MD) Atherosclerosis of [place] coronary artery of [place] heart without angina pector is (Chronic) I25.10 MACIAS to LAD, aortocoronary left radial artery to obtuse marginal artery, SVG to PDA; GERD (gastroesophageal reflux disease) (Chronic) K21.9 DM2 (diabetes mellitus, type 2) (Chronic) E11.9 CKD (chronic kidney disease) stage 3, GFR 30-59 ml/min (Chronic) Mild intermittent asthma (Chronic) J45.20 Nephrolithiasis (Chronic) History of Gerard's esophagus Z87.19 History of asthma Z87.09 History of irritable bowel syndrome Z87.19 Hypothyroidism E03.9 Allergies iodine Allergy (Verified 05/31/18 11:49) Hives Penicillins Allergy (Verified 05/31/18 15:47) Rash Surgical History: Surgical History (Last Reviewed 05/31/18 @ 16:42 by MADIHA Qureshi) History of angioplasty (Chronic) Onset Date: 11/06/89 Z98.62 Angioplasty and stenting to 70% stenosis in proximal LAD, angioplasty and stenting to proximal diagonal LAD at bifurcation, and atherectomy and stenting to 80% stenosis in mid first diagonal artery in April 2011. S/P CABG x 3 (Chronic) Onset Date: 05/09/02 Z95.1 MACIAS to LAD, aortocoronary left radial artery to obtuse marginal artery, SVG to PDA H/O percutaneous transluminal coronary angioplasty (Chronic) Onset Date: ~05/13/11 Z98.61 stent to diagonal 1 History of cardiac catheterization (Chronic) Onset Date: ~03/2002 Z98.890 03/28,04 History of colon resection Onset Date: 09/15/13 Z90.49 History of hemorrhoidectomy Z98.890 History of right inguinal hernia repair Z98.890, Z87.19 History of squamous cell carcinoma excision Onset Date: 10/23/11 Z98.890, Z85.9 left jew with rhomboid transposition skin flap reconstruction History of tonsillectomy Z90.89 History of ureter stent Onset Date: ~07/2008 - *Family History Maternal Family History: Family History (Last Reviewed 05/31/18 @ 16:43 by MADIHA Qureshi) Father CVA (cerebral vascular accident) Brother Heart disease Paternal Family History: Family History (Last Reviewed 05/31/18 @ 16:43 by MADIHA Qureshi) Father CVA (cerebral vascular accident) Brother Heart disease - Physical Exam Vital Signs Temp Pulse Resp BP Pulse Ox 97.5 F L 72 18 121/61 H 95 05/31/18 20:59 05/31/18 20:59 05/31/18 20:59 05/31/18 20:59 05/31/18 20:59 Oxygen Flow Rate (L/min) 2 Oxygen Delivery Method Nasal Cannula Weight: 82.7 kg Body Mass Index (BMI) 26.9 Finger Stick Blood Glucose 103 Intake and Output for Last 24 Hours 05/29/18 05/30/18 05/31/18 23:59 23:59 23:59 Intake Total 120 / 120 Output Total 200 / 200 Balance -80 / -80 Microbiology Past 72 Hours 05/31/18 13:25 Influenza Types A,B Direct FA (VIVIANE) - Final Mucosa - Nasopharyngeal Laboratory Tests Past 24 Hrs 05/31/18 05/31/18 05/31/18 13:35 13:35 13:35 WBC 5.7 RBC 4.41 L Hgb 12.8 L Hct 40.7 MCV 92.3 MCH 29.0 MCHC 31.4 L RDW 14.6 RDW Differential 47.9 H Plt Count 146 L MPV 11.3 Immature Gran % (Auto) 0.200 Neut % (Auto) 59.4 Lymph % (Auto) 22.9 [place] % (Auto) 11.7 H Eos % (Auto) 5.3 H Baso % (Auto) 0.5 Absolute Neuts (auto) 3.4 Absolute Lymphs (auto) 1.31 Total Counted Not Reportable D-Dimer Quant (PE/DVT) Sodium 139 Potassium 4.4 Chloride 106 Carbon Dioxide 27.0 Anion Gap 6 BUN 18 Creatinine 1.65 H Estim Creat Clear Calc 37.48 Est GFR (MDRD) Af Amer 52 L Est GFR (MDRD) Non-Af 43 L BUN/Creatinine Ratio 10.9 Glucose 84 Calcium 8.5 Total Bilirubin 0.50 AST 18 ALT 16 Alkaline Phosphatase 71 Troponin I < 0.015 B-Natriuretic Peptide 70.9 Total Protein 7.6 Albumin 3.5 Globulin 4.1 Albumin/Globulin Ratio 0.9 Urine Color Urine Clarity Urine pH Ur Specific [place] Urine Protein Urine Glucose (UA) Urine Ketones Urine Occult Blood Urine Nitrite Urine Bilirubin Urine Urobilinogen Ur Leukocyte Esterase Urine RBC Urine WBC Ur Squamous Epith Cells Urine Bacteria Urine Mucus 05/31/18 05/31/18 13:35 16:20 WBC RBC Hgb Hct MCV MCH MCHC RDW RDW Differential Plt Count MPV Immature Gran % (Auto) Neut % (Auto) Lymph % (Auto) [place] % (Auto) Eos % (Auto) Baso % (Auto) Absolute Neuts (auto) Absolute Lymphs (auto) Total Counted D-Dimer Quant (PE/DVT) 0.42 Sodium Potassium Chloride Carbon Dioxide Anion Gap BUN Creatinine Estim Creat Clear Calc Est GFR (MDRD) Af Amer Est GFR (MDRD) Non-Af BUN/Creatinine Ratio Glucose Calcium Total Bilirubin AST ALT Alkaline Phosphatase Troponin I B-Natriuretic Peptide Total Protein Albumin Globulin Albumin/Globulin Ratio Urine Color Yellow Urine Clarity Clear Urine pH 5.0 Ur Specific [place] 1.020 Urine Protein 15 H Urine Glucose (UA) Normal Urine Ketones Negative Urine Occult Blood Negative Urine Nitrite Negative Urine Bilirubin Negative Urine Urobilinogen 1 H Ur Leukocyte Esterase 25 H Urine RBC 0-5 SEEN Urine WBC 0-5 SEEN Ur Squamous Epith Cells 0-5 SEEN Urine Bacteria 0 SEEN Urine Mucus 0 SEEN Assessment/Plan This patient was seen in conjunction with Patricia Huynh NP. I have independently interviewed and examined the patient and reviewed pertinent historical, laboratory, and other data. Please refer to her note for patient's presentation, findings, and recommendations. Into 8-year-old male with multiple comorbidities, including dementia, CAD status post CABG, hyperlipidemia, hypothyroidism who comes in with complaints of cough ongoing for 1 week as well as intermittent chest pain and back pain. Patient admits to productive white sputum. He lives at home with the , and found patient increasingly confused. He was sent to the primary care physician's office, and found to be hypoxic and sent to the emergency department. PMHx: as discussed per HPI PSHX: History of CABG, hemorrhoidectomy, colon resection, hernia repair, tonsillectomy FHX: No pertinent history SHX: , lives with his , no smoking, alcohol or illicit drug use Cannot reliably obtain review of systems because of patient underlying dementia Physical Exam: Vitals in the ED were T 98.5 F, heart rate is 56, blood pressure of 130/69, respiratory rate was 16, SPO2 was 99% on room air Gen: Comfortable, not pale, not jaundiced, alert oriented x3 CVS:HS I +II, regular, tachycardic, 4/6 holosystolic murmur RESP: Diminished at lung bases, no wheezes heard GI: Bowel sounds present, soft, nontender, no palpable organs EXT:No edema Labs reviewed -WBC count is 5.7, hemoglobin 12.8, platelet is 146, BMP is unremarkable except for BUN of 18, creatinine 1.65 Urinalysis is unremarkable Influenza screen was negative Blood cultures pending, respiratory panel pending CT scan of the brain is negative ASSESSMENT: 1. Suspected community-acquired pneumonia with hypoxia 2. JAVIER on CKD stage III secondary to dehydration 3. Possible acute metabolic encephalopathy, underlying vascular dementia, likely etiology may be related to dehydration, hypoxia 4. Hypertension 5. Hyperlipidemia 6. Type II DM 7. Dementia 8. Depression 9. History of CVA Plan: Admit to PCU, droplet precaution, follow respiratory panel Gentle IV fluids Trend labs in a.m. Continue IV antibiotics for now, Repeat chest x-ray in a.m., if negative will recommend discontinue antibiotics Continue to monitor blood sugars, Continue home medications Code Visit Inpatient E&M: 09283 Init Hosp L3
[2018-05-31] MEDS: levoFLOXacin IV 750 MG/150 ML BAG 100 MG IV (16:13)
[2018-05-31 16:25] LABS: Bacteria 0 SEEN /hpf (None Seen); Mucous, Urine 0 SEEN /hpf (<or=2+)
[2018-05-31 16:31] LABS: Color, Urine Yellow (Yellow); Glucose, Dipstick Normal (Normal); Ketone-Dipstick Negative (Negative); Leukocyte Esterase-Dipstick 25 /ul (Negative); Nitrite-Dipstick Negative (Negative); Occult Blood-Urine Negative /ul (Negative); Protein-Dipstick 15 mg/dl (Negative); Urine Bilirubin Dipstick Negative (Negative); Urine Clarity Clear (Clear); Urine Urobilinogen 1 mg/dl (Normal)
--- NOTE | 2018-05-31 16:35 | CT_ITS ---
STUDY: CT BRAIN WITHOUT CONTRAST REASON FOR EXAM: Male, 78 years old. Confusion RADIATION DOSAGE (If Supplied By Facility): CTDIvol = ( 44.99 ) mGy, DLP = ( 779.24 ) mGycm TECHNIQUE: Transaxial CT imaging of the brain was performed without administration of intravenous contrast material. Coronal and sagittal 2-D MPR Individualized dose optimization techniques were used for this CT. COMPARISON: CT head 04/24/2018 FINDINGS: Paranasal sinuses clear. Mastoid air cells and middle ear cavities clear. Facial osseous structures intact. Extra cranial soft tissues including orbital contents exhibit no acute process. Moderate symmetric expansion of lateral ventricles and extra axial spaces consistent with age-related atrophy. Moderate prominent and confluent low-density changes of the periventricular white matter bifrontal and biparietal consistent with chronic microvascular ischemic disease. Small old lacunar infarct of the right basal ganglia. Moderate prominent old lacunar infarct of the left external capsule. Small old lacunar infarcts of the thalami bilaterally. There is no acute cranial bleed, mass or mass effect nor any specific evidence of acute territorial infarct. CT/Brain/Head without Contrast IMPRESSION: Stable chronic involutional features and old infarcts of the brain. No acute intracranial process is evident. Electronically Signed: Jonh Younger MD at 17:00 EST Tel , Service support ,
[2018-05-31 16:44] LABS: Red Blood Cells-Urine 0-5 SEEN /hpf (0-5); Squamous Epithelial Cells - UA 0-5 SEEN /hpf (0-5); White Blood Cells 0-5 SEEN /hpf (0-5)
[2018-05-31 18:13] LABS: D-Dimer Quantitative (DVT/PE) 0.42 FEU/ug/m (0.27-0.49)
[2018-05-31] MEDS: 0.9% Normal Saline 1,000 ML 75 ML IV (18:55)
[2018-05-31] MEDS: Donepezil HCl 10 MG Tablet PO (20:52)
[2018-05-31] MEDS: Heparin Injection (Vial) 5,000 UNIT/ML VIAL 5000 UNIT SC (20:52)
[2018-05-31] MEDS: 0.9% NaCl Peripheral Flush Adult/Peds IV (20:57)
[2018-06-01] VITALS (17 sets, daily range): BP systolic 110–169; BP diastolic 60–84; PULSE 65–96; RESP 16–22; TEMP 35.9–37; O2SAT 94–100; BMI 27.0
[2018-06-01] MEDS: Acetaminophen 325 MG Tablet 650 MG PO ×2 (00:43→18:09)
[2018-06-01] MEDS: Heparin Injection (Vial) 5,000 UNIT/ML VIAL 5000 UNIT SC ×2 (05:10→22:37)
[2018-06-01 07:10] LABS: Absolute Lymphocyte Count 1.19 X10^3/ul (0.83-4.51); Absolute Neutrophil Count 3.5 X10^3/uL (2.0-7.7); Basophil# 0.02 X10^3/uL; Basophil% 0.3 % (0-1); Eosinophils% 5.2 % (0-5); Hematocrit 38.3 % (40-54); Hemoglobin 11.6 g/dl (13.0-16.5); Lymphocyte # 1.19 X10^3/ul (4.0); Lymphocyte % 20.6 % (19-41); Mean Corp Hgb Conc 30.3 g/gl (32-36); Mean Corpuscular Volume 92.5 fL (80-94); Mean Platelet Vol. 11.1 fl (6.2-12.0); Monocyte# 0.72 X10^3/uL; Monocyte% 12.5 % (0-10); Neutrophil # 3.54 X10^3/uL (2.7-7.7); Neutrophil % 61.2 % (47-70); Platelet Count 128 K/mm3 (150-450); RBC Distribution Width CV 14.5 % (11.6-14.6); RBC Distribution Width SD 47.6 fl (35.1-43.9); Red Blood Count 4.14 M/mm3 (4.6-6.2); White Blood Count 5.8 K/mm3 (4.4-11.0)
[2018-06-01 07:16] LABS: POSITIVE COUNT NO; POSITIVE DIFFERENTIAL NO; POSITIVE MORPHOLOGY NO
--- NOTE | 2018-06-01 07:27 | CON.PCM_ITS ---
Problem List (1) Ureteral calculus, right Status: Acute Reason for Consult Date of Consultation: 06/01/18 Reason for Consultation: Obstructing right ureteral calculi History of Present Illness: The patient is a 78 year old male who presented to the hospital on admission he had a CAT scan done that demonstrated an obstructing stone in the distal right ureter he is not having significant pain but the stone is obstructing is fairly large. He does have multiple medical problems and he does have history of vascular dementia. Spoke to his today regarding the stone and the need to address the stone to prevent any injury to the kidney infection or problems. Past Medical History Past Medical History (Chronic Problems): Chronic Problems (Last Updated 04/24/18 @ 19:17 by George Pimentel MD) Debility (Chronic) Vascular dementia (Chronic) Coronary artery disease (Chronic) Hyperlipidemia (Chronic) Hypothyroidism (Chronic) Depression (Chronic) Overactive bladder (Chronic) History of CVA (cerebrovascular accident) (Chronic) Atherosclerosis of [place] coronary artery of [place] heart without angina pectoris (Chronic) MACIAS to LAD, aortocoronary left radial artery to obtuse marginal artery, SVG to PDA; GERD (gastroesophageal reflux disease) (Chronic) History of angioplasty (Chronic 11/06/89) Angioplasty and stenting to 70% stenosis in proximal LAD, angioplasty and stenting to proximal diagonal LAD at bifurcation, and atherectomy and stenting to 80% stenosis in mid first diagonal artery in April 2011. 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) MACIAS to LAD, aortocoronary left radial artery to obtuse marginal artery, SVG to PDA H/O percutaneous transluminal coronary angioplasty (Chronic ~05/13/11) stent to diagonal 1 History of cardiac catheterization (Chronic ~03/2002) 03/28,06/28 DM2 (diabetes mellitus, type 2) (Chronic) CKD (chronic kidney disease) stage 3, GFR 30-59 ml/min (Chronic) Mild intermittent asthma (Chronic) Nephrolithiasis (Chronic) Medical History: Medical History (Last Reviewed 06/01/18 @ 07:27 by Nico Ordoñez MD) Atherosclerosis of [place] coronary artery of [place] heart without angina pect ronel (Chronic) I25.10 MACIAS to LAD, aortocoronary left radial artery to obtuse marginal artery, SVG to PDA; GERD (gastroesophageal reflux disease) (Chronic) K21.9 DM2 (diabetes mellitus, type 2) (Chronic) E11.9 CKD (chronic kidney disease) stage 3, GFR 30-59 ml/min (Chronic) Mild intermittent asthma (Chronic) J45.20 Nephrolithiasis (Chronic) History of Gerard's esophagus Z87.19 History of asthma Z87.09 History of irritable bowel syndrome Z87.19 Hypothyroidism E03.9 Allergies iodine Allergy (Verified 05/31/18 11:49) Hives Penicillins Allergy (Verified 05/31/18 15:47) Rash Home Medications: Ambulatory Orders Medication Instructions Recorded Aspirin E.C. [Ecotrin] 81 mg PO DAILY@0800 09/15/13 Escitalopram Oxalate [Lexapro] 10 mg PO DAILY 09/15/13 Pioglitazone [Actos] 30 mg PO DAILY 09/15/13 Donepezil HCl [Aricept] 10 mg PO QHS 02/27/16 Oxybutynin [Ditropan] 15 mg PO DAILY 02/27/16 docusate sodium 100 mg capsule 100 mg PO DAILY PRN cap 02/24/18 Clopidogrel Bisulfate [Plavix] 75 mg PO DAILY 04/30/18 Ezetimibe [Zetia] 10 mg PO DAILY 04/30/18 Ramipril 5 mg PO DAILY 05/31/18 Surgical History: Surgical History (Last Reviewed 06/01/18 @ 07:27 by Nico Ordoñez MD) History of angioplasty (Chronic) Onset Date: 11/06/89 Z98.62 Angioplasty and stenting to 70% stenosis in proximal LAD, angioplasty and stenting to proximal diagonal LAD at bifurcation, and atherectomy and stenting to 80% stenosis in mid first diagonal artery in April 2011. S/P CABG x 3 (Chronic) Onset Date: 05/09/02 Z95.1 MACIAS to LAD, aortocoronary left radial artery to obtuse marginal artery, SVG to PDA H/O percutaneous transluminal coronary angioplasty (Chronic) Onset Date: ~05/13/11 Z98.61 stent to diagonal 1 History of cardiac catheterization (Chronic) Onset Date: ~03/2002 Z98.890 03/28,03/04 History of colon resection Onset Date: 09/15/13 Z90.49 History of hemorrhoidectomy Z98.890 History of right inguinal hernia repair Z98.890, Z87.19 History of squamous cell carcinoma excision Onset Date: 10/23/11 Z98.890, Z85.9 left [facility] with rhomboid transposition skin flap reconstruction History of tonsillectomy Z90.89 History of ureter stent Onset Date: ~07/2008 Surgical History: coronary bypass surgery - x 3., herniorrhaphy - Hiatal., tonsillectomy Psychiatric History: Depression Lives: Spouse/ Significant Other Smoking Status: Former smoker Alcohol: None Drugs: None - *Family History Maternal Family History: Family History (Last Reviewed 06/01/18 @ 07:27 by Nico Ordoñez MD) Father CVA (cerebral vascular accident) Brother Heart disease History Items: - - Denies maternal cardiac history Paternal Family History: Family History (Last Reviewed 06/01/18 @ 07:27 by Nico Ordoñez MD) Father CVA (cerebral vascular accident) Brother Heart disease History Items: - - No stroke Review of Systems Constitutional: Denies: Chills, Fever, Weight Change HEENT: Denies: Head Aches, Sinus Congestion, Sinus Drainage Cardiovascular: Denies: Chest Pain, Palpitations Respiratory: Denies: Cough, Shortness of breath at rest, Sputum production Gastrointestinal: Denies: Abdominal Pain, Nausea, Vomiting Genitourinary: Denies: Dysuria Musculoskeletal: Denies: Joint Pain, Joint Tenderness Skin: Denies: Rash, Wounds Neurological: Reports: - - Mild dementia. Denies: Focal weakness, Numbness, Tingling Psychiatric: Denies: Anxiety, Depression, Homicidal Ideations, Suicidal Ideations Hematologic/ Lymphatic: Denies: Easy Bruising, Easy Bleeding Physical Exam - Physical Exam Vital Signs Temp 98.1 F 06/01/18 05:06 Pulse 77 06/01/18 05:06 Resp 18 06/01/18 05:06 BP 150/60 H 06/01/18 05:06 Pulse Ox 96 06/01/18 05:06 Intake & Output 05/30/18 05/31/18 06/01/18 23:59 23:59 23:59 Intake Total 796 / 796 503 / 503 Output Total 200 / 200 Balance 596 / 596 503 / 503 Weight: 82.7 kg 82.8 kg Intake: Oral 220 / 220 100 / 100 IV fluid/meds 576 / 576 403 / 403 Output: Urine 200 / 200 Other: Number of times incontinent 3 Incontinent Amount Large Incontinent Amount Urine #2 Moderate General: Alert HEENT: Atraumatic Oral: Moist Mucosa, - Neck: Supple Lungs: Normal air movement Cardiovascular: Regular rate Abdomen: Soft, Obese Rectal: Exam deferred Microbiology Past 72 Hours 05/31/18 13:25 Influenza Types A,B Direct FA (VIVIANE) - Final Mucosa - Nasopharyngeal Laboratory Tests Past 24 Hrs 05/31/18 05/31/18 05/31/18 13:35 13:35 13:35 WBC 5.7 RBC 4.41 L Hgb 12.8 L Hct 40.7 MCV 92.3 MCH 29.0 MCHC 31.4 L RDW 14.6 RDW Differential 47.9 H Plt Count 146 L MPV 11.3 Immature Gran % (Auto) 0.200 Neut % (Auto) 59.4 Lymph % (Auto) 22.9 [place] % (Auto) 11.7 H Eos % (Auto) 5.3 H Baso % (Auto) 0.5 Absolute Neuts (auto) 3.4 Absolute Lymphs (auto) 1.31 Total Counted Not Reportable D-Dimer Quant (PE/DVT) Sodium 139 Potassium 4.4 Chloride 106 Carbon Dioxide 27.0 Anion Gap 6 BUN 18 Creatinine 1.65 H Estim Creat Clear Calc 37.48 Est GFR (MDRD) Af Amer 52 L Est GFR (MDRD) Non-Af 43 L BUN/Creatinine Ratio 10.9 Glucose 84 Calcium 8.5 Total Bilirubin 0.50 AST 18 ALT 16 Alkaline Phosphatase 71 Troponin I < 0.015 B-Natriuretic Peptide 70.9 Total Protein 7.6 Albumin 3.5 Globulin 4.1 Albumin/Globulin Ratio 0.9 Urine Color Urine Clarity Urine pH Ur Specific [place] Urine Protein Urine Glucose (UA) Urine Ketones Urine Occult Blood Urine Nitrite Urine Bilirubin Urine Urobilinogen Ur Leukocyte Esterase Urine RBC Urine WBC Ur Squamous Epith Cells Urine Bacteria Urine Mucus 05/31/18 05/31/18 06/01/18 13:35 16:20 06:56 WBC 5.8 RBC 4.14 L Hgb 11.6 L Hct 38.3 L MCV 92.5 MCH 28.0 MCHC 30.3 L RDW 14.5 RDW Differential 47.6 H Plt Count 128 L MPV 11.1 Immature Gran % (Auto) 0.200 Neut % (Auto) 61.2 Lymph % (Auto) 20.6 [place] % (Auto) 12.5 H Eos % (Auto) 5.2 H Baso % (Auto) 0.3 Absolute Neuts (auto) 3.5 Absolute Lymphs (auto) 1.19 Total Counted Not Reportable D-Dimer Quant (PE/DVT) 0.42 Sodium Potassium Chloride Carbon Dioxide Anion Gap BUN Creatinine Estim Creat Clear Calc Est GFR (MDRD) Af Amer Est GFR (MDRD) Non-Af BUN/Creatinine Ratio Glucose Calcium Total Bilirubin AST ALT Alkaline Phosphatase Troponin I B-Natriuretic Peptide Total Protein Albumin Globulin Albumin/Globulin Ratio Urine Color Yellow Urine Clarity Clear Urine pH 5.0 Ur Specific [place] 1.020 Urine Protein 15 H Urine Glucose (UA) Normal Urine Ketones Negative Urine Occult Blood Negative Urine Nitrite Negative Urine Bilirubin Negative Urine Urobilinogen 1 H Ur Leukocyte Esterase 25 H Urine RBC 0-5 SEEN Urine WBC 0-5 SEEN Ur Squamous Epith Cells 0-5 SEEN Urine Bacteria 0 SEEN Urine Mucus 0 SEEN 06/01/18 06:56 WBC RBC Hgb Hct MCV MCH MCHC RDW RDW Differential Plt Count MPV Immature Gran % (Auto) Neut % (Auto) Lymph % (Auto) [place] % (Auto) Eos % (Auto) Baso % (Auto) Absolute Neuts (auto) Absolute Lymphs (auto) Total Counted D-Dimer Quant (PE/DVT) Sodium Pending Potassium Pending Chloride Pending Carbon Dioxide Pending Anion Gap Pending BUN Pending Creatinine Pending Estim Creat Clear Calc Est GFR (MDRD) Af Amer Pending Est GFR (MDRD) Non-Af Pending BUN/Creatinine Ratio Pending Glucose Pending Calcium Pending Total Bilirubin AST ALT Alkaline Phosphatase Troponin I B-Natriuretic Peptide Total Protein Albumin Globulin Albumin/Globulin Ratio Urine Color Urine Clarity Urine pH Ur Specific [place] Urine Protein Urine Glucose (UA) Urine Ketones Urine Occult Blood Urine Nitrite Urine Bilirubin Urine Urobilinogen Ur Leukocyte Esterase Urine RBC Urine WBC Ur Squamous Epith Cells Urine Bacteria Urine Mucus Assessment/Plan All Active Problems (Last Updated 04/24/18 @ 19:17 by George Pimentel MD) Ureteral calculus, right (Acute) 78-year-old male presented to the hospital multiple medical problems, he has an obstructing stone in the distal right ureter. Plan to make the patient n.p.o. for surgery for later today we will taken to surgery for cystoscopy and right stent placement. Discussed with the and she is agreeable with the surgery.
[2018-06-01 07:29] LABS: Anion Gap 6 (5-15); BUN 13 mg/dL (7-18); BUN/Creat Ratio 10.3 RATIO (10-20); Calcium,Total 7.9 mg/dL (8.5-10.1); Chloride 112 mmol/L (98-107); Creatinine, Serum 1.26 mg/dL (0.70-1.30); EST Glomerular Filtration Rate 59 mL/min (>60); Est Glom Filt Rate - Afr Amer 71 mL/min (>60); Estimated Creatinine Clearance 47.54 ml/min; Glucose 83 mg/dL (74-106); Potassium 3.7 mmol/L (3.5-5.1); Sodium Level 139 mmol/L (136-145)
[2018-06-01 11:26] LABS: Bedside Glucose 92 mg/dL (70-110)
--- NOTE | 2018-06-01 11:28 | NURSING ---
Handoff called to surgery by this RN. Spoke with Mimi BOO.
--- NOTE | 2018-06-01 11:54 | NURSING ---
Pt being taken to surgery at 11:23. Mask on pt for respiratory precautions.
--- NOTE | 2018-06-01 12:03 | PCM.PROGNOTE ---
<Patricia Huynh - Last Filed: 06/01/18 12:21> Patient Problems: Active and Suspected Problems (Last Reviewed 06/01/18 @ 07:27 by Nico Ordoñez MD) Ureteral calculus, right (Acute) Subjective: Patient seen and examined. Reports back pain is improved. Shortness of breath improved. Denies current complaints. - Physical Exam General: Alert, Cooperative, No apparent distress HEENT: Atraumatic, PERRLA, EOMI, Normocephalic Neck: Supple, No JVD, Negative Carotid Bruits Lungs: Clear to auscultation, Diminished Cardiovascular: Regular rate, Regular Rhythm, Normal S1, Normal S2 Abdomen: Bowel Sounds Present, Soft, Non Tender, Non-Distended Extremities: No clubbing, No cyanosis, No edema, Capillary Refill Less than 3 Seconds Skin: No rashes, No breakdown Musculoskeletal: No Tenderness to Palpation of Joints or Extremities Neurological: Cranial nerves II-XII grossly intact, Neuro grossly intact Psych/Mental Status: Normal Affect, Appropriate Vital Signs Temp Pulse Resp BP Pulse Ox 98.6 F 72 16 166/81 H 97 06/01/18 11:08 06/01/18 11:08 06/01/18 11:08 06/01/18 11:08 06/01/18 11:08 Oxygen Flow Rate (L/min) 2 Oxygen Delivery Method Room Air Weight: 182 lb 8.684 oz Body Mass Index (BMI) 370769.0 Finger Stick Blood Glucose 103 Intake and Output for Last 24 Hours 05/30/18 05/31/18 06/01/18 23:59 23:59 23:59 Intake Total 796 / 796 503 / 503 Output Total 200 / 200 Balance 596 / 596 503 / 503 Microbiology Past 72 Hours 05/31/18 20:30 Respiratory Panel (PCR) - Final Mucosa - Nose RSV B 05/31/18 13:25 Influenza Types A,B Direct FA (VIVIANE) - Final Mucosa - Nasopharyngeal Laboratory Tests Past 24 Hrs 05/31/18 05/31/18 05/31/18 13:35 13:35 13:35 WBC 5.7 RBC 4.41 L Hgb 12.8 L Hct 40.7 MCV 92.3 MCH 29.0 MCHC 31.4 L RDW 14.6 RDW Differential 47.9 H Plt Count 146 L MPV 11.3 Immature Gran % (Auto) 0.200 Neut % (Auto) 59.4 Lymph % (Auto) 22.9 [place] % (Auto) 11.7 H Eos % (Auto) 5.3 H Baso % (Auto) 0.5 Absolute Neuts (auto) 3.4 Absolute Lymphs (auto) 1.31 Total Counted Not Reportable D-Dimer Quant (PE/DVT) Sodium 139 Potassium 4.4 Chloride 106 Carbon Dioxide 27.0 Anion Gap 6 BUN 18 Creatinine 1.65 H Estim Creat Clear Calc 37.48 Est GFR (MDRD) Af Amer 52 L Est GFR (MDRD) Non-Af 43 L BUN/Creatinine Ratio 10.9 Glucose 84 Calcium 8.5 Total Bilirubin 0.50 AST 18 ALT 16 Alkaline Phosphatase 71 Troponin I < 0.015 B-Natriuretic Peptide 70.9 Total Protein 7.6 Albumin 3.5 Globulin 4.1 Albumin/Globulin Ratio 0.9 Urine Color Urine Clarity Urine pH Ur Specific [place] Urine Protein Urine Glucose (UA) Urine Ketones Urine Occult Blood Urine Nitrite Urine Bilirubin Urine Urobilinogen Ur Leukocyte Esterase Urine RBC Urine WBC Ur Squamous Epith Cells Urine Bacteria Urine Mucus 05/31/18 05/31/18 06/01/18 13:35 16:20 06:56 WBC 5.8 RBC 4.14 L Hgb 11.6 L Hct 38.3 L MCV 92.5 MCH 28.0 MCHC 30.3 L RDW 14.5 RDW Differential 47.6 H Plt Count 128 L MPV 11.1 Immature Gran % (Auto) 0.200 Neut % (Auto) 61.2 Lymph % (Auto) 20.6 [place] % (Auto) 12.5 H Eos % (Auto) 5.2 H Baso % (Auto) 0.3 Absolute Neuts (auto) 3.5 Absolute Lymphs (auto) 1.19 Total Counted Not Reportable D-Dimer Quant (PE/DVT) 0.42 Sodium Potassium Chloride Carbon Dioxide Anion Gap BUN Creatinine Estim Creat Clear Calc Est GFR (MDRD) Af Amer Est GFR (MDRD) Non-Af BUN/Creatinine Ratio Glucose Calcium Total Bilirubin AST ALT Alkaline Phosphatase Troponin I B-Natriuretic Peptide Total Protein Albumin Globulin Albumin/Globulin Ratio Urine Color Yellow Urine Clarity Clear Urine pH 5.0 Ur Specific [place] 1.020 Urine Protein 15 H Urine Glucose (UA) Normal Urine Ketones Negative Urine Occult Blood Negative Urine Nitrite Negative Urine Bilirubin Negative Urine Urobilinogen 1 H Ur Leukocyte Esterase 25 H Urine RBC 0-5 SEEN Urine WBC 0-5 SEEN Ur Squamous Epith Cells 0-5 SEEN Urine Bacteria 0 SEEN Urine Mucus 0 SEEN 06/01/18 06:56 WBC RBC Hgb Hct MCV MCH MCHC RDW RDW Differential Plt Count MPV Immature Gran % (Auto) Neut % (Auto) Lymph % (Auto) [place] % (Auto) Eos % (Auto) Baso % (Auto) Absolute Neuts (auto) Absolute Lymphs (auto) Total Counted D-Dimer Quant (PE/DVT) Sodium 139 Potassium 3.7 Chloride 112 H Carbon Dioxide 21.0 Anion Gap 6 BUN 13 Creatinine 1.26 Estim Creat Clear Calc 47.54 Est GFR (MDRD) Af Amer 71 Est GFR (MDRD) Non-Af 59 L BUN/Creatinine Ratio 10.3 Glucose 83 Calcium 7.9 L Total Bilirubin AST ALT Alkaline Phosphatase Troponin I B-Natriuretic Peptide Total Protein Albumin Globulin Albumin/Globulin Ratio Urine Color Urine Clarity Urine pH Ur Specific [place] Urine Protein Urine Glucose (UA) Urine Ketones Urine Occult Blood Urine Nitrite Urine Bilirubin Urine Urobilinogen Ur Leukocyte Esterase Urine RBC Urine WBC Ur Squamous Epith Cells Urine Bacteria Urine Mucus POC Glucose 06/01/18 11:13 POC Glucose 92 Medical Necessity - Tobacco Use Smoking Status: Former smoker Assessment/Plan All Active Problems (Last Reviewed 06/01/18 @ 07:27 by Nico Ordoñez MD) Ureteral calculus, right (Acute) 1. Acute hypoxic respiratory insufficiency secondary to acute RSV B URI-pneumonia initially suspected on admission, ruled out. Afebrile. No leukocytosis. Chest x-ray shows stable pleural parenchymal changes at the left lung base. DC IV Levaquin. Albuterol/DuoNeb aerosols. Continue supplement oxygen to maintain O2 at or above 90%. Wean oxygen as tolerated. Prednisone 40 mg x 5 days. Walking pulse ox prior to discharge. 2. Acute kidney injury on chronic kidney disease stage III-suspect secondary to dehydration as well as obstructing right ureteral stone. IV fluids. Trend BMP. JAVIER resolved. 3. Acute metabolic encephalopathy secondary to #1/#2 with underlying vascular dementia-CT of brain ordered without acute process. Treat underlying processes. 4. Right distal ureteral obstructing stone-Dr. Ordoñez consulted. Plan for cystoscopy with right stent placement today. 5. Hyperlipidemia-continue Zetia. 6. Hypertension-stable, hold CATHERINE inhibitor given acute kidney injury. 7. Dementia, without behavioral disturbance-Aricept. 8. Hypothyroidism-continue Synthroid. 9. Depression-continue Lexapro regimen. 10. History of CVA-continue aspirin, Plavix, Zetia. 11. GERD-not on regimen. 12. Mild intermittent asthma-no acute exacerbation. 13. CAD status post CABG and stents-Follows with Dr. Melvin. Continue aspirin, Plavix, ramipril, Zetia. 14. Type 2 diabetes [id number] ACHS with SSI. DVT prophylaxis-heparin subcu. This patient was seen by MADIHA Qureshi under the supervision of Dr. Pimentel. <George Pimentel E - Last Filed: 06/01/18 14:31> - Physical Exam Vital Signs Temp Pulse Resp BP Pulse Ox 97.1 F L 75 16 138/73 H 97 06/01/18 13:25 06/01/18 13:25 06/01/18 13:25 06/01/18 13:25 06/01/18 13:25 Oxygen Flow Rate (L/min) 2 Oxygen Delivery Method Room Air Weight: 182 lb 8.684 oz Body Mass Index (BMI) 735478.0 Finger Stick Blood Glucose 103 Intake and Output for Last 24 Hours 05/30/18 05/31/18 06/01/18 23:59 23:59 23:59 Intake Total 796 / 796 803 / 803 Output Total 200 / 200 Balance 596 / 596 803 / 803 Microbiology Past 72 Hours 05/31/18 20:30 Respiratory Panel (PCR) - Final Mucosa - Nose RSV B 05/31/18 13:25 Influenza Types A,B Direct FA (VIVIANE) - Final Mucosa - Nasopharyngeal Laboratory Tests Past 24 Hrs 05/31/18 05/31/18 05/31/18 13:35 13:35 16:20 WBC RBC Hgb Hct MCV MCH MCHC RDW RDW Differential Plt Count MPV Immature Gran % (Auto) Neut % (Auto) Lymph % (Auto) [place] % (Auto) Eos % (Auto) Baso % (Auto) Absolute Neuts (auto) Absolute Lymphs (auto) Total Counted D-Dimer Quant (PE/DVT) 0.42 Sodium Potassium Chloride Carbon Dioxide Anion Gap BUN Creatinine Estim Creat Clear Calc Est GFR (MDRD) Af Amer Est GFR (MDRD) Non-Af BUN/Creatinine Ratio Glucose Calcium B-Natriuretic Peptide 70.9 Urine Color Yellow Urine Clarity Clear Urine pH 5.0 Ur Specific [place] 1.020 Urine Protein 15 H Urine Glucose (UA) Normal Urine Ketones Negative Urine Occult Blood Negative Urine Nitrite Negative Urine Bilirubin Negative Urine Urobilinogen 1 H Ur Leukocyte Esterase 25 H Urine RBC 0-5 SEEN Urine WBC 0-5 SEEN Ur Squamous Epith Cells 0-5 SEEN Urine Bacteria 0 SEEN Urine Mucus 0 SEEN 06/01/18 06/01/18 06:56 06:56 WBC 5.8 RBC 4.14 L Hgb 11.6 L Hct 38.3 L MCV 92.5 MCH 28.0 MCHC 30.3 L RDW 14.5 RDW Differential 47.6 H Plt Count 128 L MPV 11.1 Immature Gran % (Auto) 0.200 Neut % (Auto) 61.2 Lymph % (Auto) 20.6 [place] % (Auto) 12.5 H Eos % (Auto) 5.2 H Baso % (Auto) 0.3 Absolute Neuts (auto) 3.5 Absolute Lymphs (auto) 1.19 Total Counted Not Reportable D-Dimer Quant (PE/DVT) Sodium 139 Potassium 3.7 Chloride 112 H Carbon Dioxide 21.0 Anion Gap 6 BUN 13 Creatinine 1.26 Estim Creat Clear Calc 47.54 Est GFR (MDRD) Af Amer 71 Est GFR (MDRD) Non-Af 59 L BUN/Creatinine Ratio 10.3 Glucose 83 Calcium 7.9 L B-Natriuretic Peptide Urine Color Urine Clarity Urine pH Ur Specific [place] Urine Protein Urine Glucose (UA) Urine Ketones Urine Occult Blood Urine Nitrite Urine Bilirubin Urine Urobilinogen Ur Leukocyte Esterase Urine RBC Urine WBC Ur Squamous Epith Cells Urine Bacteria Urine Mucus POC Glucose 06/01/18 11:13 POC Glucose 92 Assessment/Plan Hospitalist note: I am seeing this patient in conjunction with Patricia Huynh. I independently seen and examined the patient. Progress note above, laboratory data and imaging studies reviewed and I agree with above treatment plan. I saw the patient after he underwent cystoscopy dilatation of the right ureter and right stent placement. He denied any more back or right flank pain. He stated his breathing is getting better. Denies chest pain or palpitation. Denies fever chills. His vital signs are stable. - Physical Exam General: Alert, Cooperative, No apparent distress. HEENT: Atraumatic, PERRLA, EOMI. Neck: Supple, No JVD, Negative Carotid Bruits, Trachea Midline, Thyroid Normal. Lungs: Diminished breath sounds bilateral, otherwise clear, No rhonchi, No wheeze, No rales. Cardiovascular: Regular rate, Regular Rhythm, Normal S1, Normal S2, PMI Normal. Abdomen: Bowel Sounds Present, Soft, Non Tender, Non-Distended, No Hepato-splenomegaly. Extremities: No clubbing, No cyanosis, No edema Skin: No rashes, No breakdown Neurological: Neuro grossly intact Vital Signs are stable. Assessment and plan: #1 acute hypoxic/insufficiency/URTI with RSV type B.: Chest x-ray revealed chronic left base parenchymal changes, likely due to atelectasis, no acute findings. Patient has been afebrile, no leukocytosis. Pneumonia ruled out. D-dimer was negative. Respiratory panel for viruses came back positive for respiratory syncytial virus type B. Blood cultures pending. No indication for IV antibiotics. Plan to continue bronchodilators, incentive spirometer, wean off oxygen as tolerated. #2 acute kidney symptoms stage III chronic kidney disease: Baseline creatinine has been around 1.3, admission creatinine was 1.65 and patient has been on IV fluids. This can came down to 1.6, improving. #4 right ureteral stone with obstruction: Status post cystoscopy, dilation and placement of right ureteral stent. That was done today. Patient denies any more flank pain. Kidney function is improving. Urinalysis revealed no evidence of UTI. #4 acute metabolic encephalopathy: In context of history of dementia, likely exacerbated by hypoxia and acute kidney injury. CT scan brain showed no acute findings. #5 other chronic medical problems: Stable, continue current medications as above. This note was generated with [id number] dictation software. It may contain incorrect words, spelling, and punctuation that were not noted in checking the note before signing. Code Visit Inpatient E&M: 20550 Subs Hosp L2
--- NOTE | 2018-06-01 12:07 | PN_ITS ---
<Patricia Huynh - Last Filed: 06/01/18 12:21> Patient Problems: Active and Suspected Problems (Last Reviewed 06/01/18 @ 07:27 by Nico Ordoñez MD) Ureteral calculus, right (Acute) Subjective: Patient seen and examined. Reports back pain is improved. Shortness of breath improved. Denies current complaints. - Physical Exam General: Alert, Cooperative, No apparent distress HEENT: Atraumatic, PERRLA, EOMI, Normocephalic Neck: Supple, No JVD, Negative Carotid Bruits Lungs: Clear to auscultation, Diminished Cardiovascular: Regular rate, Regular Rhythm, Normal S1, Normal S2 Abdomen: Bowel Sounds Present, Soft, Non Tender, Non-Distended Extremities: No clubbing, No cyanosis, No edema, Capillary Refill Less than 3 Se conds Skin: No rashes, No breakdown Musculoskeletal: No Tenderness to Palpation of Joints or Extremities Neurological: Cranial nerves II-XII grossly intact, Neuro grossly intact Psych/Mental Status: Normal Affect, Appropriate Vital Signs Temp Pulse Resp BP Pulse Ox 98.6 F 72 16 166/81 H 97 06/01/18 11:08 06/01/18 11:08 06/01/18 11:08 06/01/18 11:08 06/01/18 11:08 Oxygen Flow Rate (L/min) 2 Oxygen Delivery Method Room Air Weight: 182 lb 8.684 oz Body Mass Index (BMI) 233214.0 Finger Stick Blood Glucose 103 Intake and Output for Last 24 Hours 05/30/18 05/31/18 06/01/18 23:59 23:59 23:59 Intake Total 796 / 796 503 / 503 Output Total 200 / 200 Balance 596 / 596 503 / 503 Microbiology Past 72 Hours 05/31/18 20:30 Respiratory Panel (PCR) - Final Mucosa - Nose RSV B 05/31/18 13:25 Influenza Types A,B Direct FA (VIVIANE) - Final Mucosa - Nasopharyngeal Laboratory Tests Past 24 Hrs 05/31/18 05/31/18 05/31/18 13:35 13:35 13:35 WBC 5.7 RBC 4.41 L Hgb 12.8 L Hct 40.7 MCV 92.3 MCH 29.0 MCHC 31.4 L RDW 14.6 RDW Differential 47.9 H Plt Count 146 L MPV 11.3 Immature Gran % (Auto) 0.200 Neut % (Auto) 59.4 Lymph % (Auto) 22.9 [place] % (Auto) 11.7 H Eos % (Auto) 5.3 H Baso % (Auto) 0.5 Absolute Neuts (auto) 3.4 Absolute Lymphs (auto) 1.31 Total Counted Not Reportable D-Dimer Quant (PE/DVT) Sodium 139 Potassium 4.4 Chloride 106 Carbon Dioxide 27.0 Anion Gap 6 BUN 18 Creatinine 1.65 H Estim Creat Clear Calc 37.48 Est GFR (MDRD) Af Amer 52 L Est GFR (MDRD) Non-Af 43 L BUN/Creatinine Ratio 10.9 Glucose 84 Calcium 8.5 Total Bilirubin 0.50 AST 18 ALT 16 Alkaline Phosphatase 71 Troponin I < 0.015 B-Natriuretic Peptide 70.9 Total Protein 7.6 Albumin 3.5 Globulin 4.1 Albumin/Globulin Ratio 0.9 Urine Color Urine Clarity Urine pH Ur Specific [place] Urine Protein Urine Glucose (UA) Urine Ketones Urine Occult Blood Urine Nitrite Urine Bilirubin Urine Urobilinogen Ur Leukocyte Esterase Urine RBC Urine WBC Ur Squamous Epith Cells Urine Bacteria Urine Mucus 05/31/18 05/31/18 06/01/18 13:35 16:20 06:56 WBC 5.8 RBC 4.14 L Hgb 11.6 L Hct 38.3 L MCV 92.5 MCH 28.0 MCHC 30.3 L RDW 14.5 RDW Differential 47.6 H Plt Count 128 L MPV 11.1 Immature Gran % (Auto) 0.200 Neut % (Auto) 61.2 Lymph % (Auto) 20.6 [place] % (Auto) 12.5 H Eos % (Auto) 5.2 H Baso % (Auto) 0.3 Absolute Neuts (auto) 3.5 Absolute Lymphs (auto) 1.19 Total Counted Not Reportable D-Dimer Quant (PE/DVT) 0.42 Sodium Potassium Chloride Carbon Dioxide Anion Gap BUN Creatinine Estim Creat Clear Calc Est GFR (MDRD) Af Amer Est GFR (MDRD) Non-Af BUN/Creatinine Ratio Glucose Calcium Total Bilirubin AST ALT Alkaline Phosphatase Troponin I B-Natriuretic Peptide Total Protein Albumin Globulin Albumin/Globulin Ratio Urine Color Yellow Urine Clarity Clear Urine pH 5.0 Ur Specific [place] 1.020 Urine Protein 15 H Urine Glucose (UA) Normal Urine Ketones Negative Urine Occult Blood Negative Urine Nitrite Negative Urine Bilirubin Negative Urine Urobilinogen 1 H Ur Leukocyte Esterase 25 H Urine RBC 0-5 SEEN Urine WBC 0-5 SEEN Ur Squamous Epith Cells 0-5 SEEN Urine Bacteria 0 SEEN Urine Mucus 0 SEEN 06/01/18 06:56 WBC RBC Hgb Hct MCV MCH MCHC RDW RDW Differential Plt Count MPV Immature Gran % (Auto) Neut % (Auto) Lymph % (Auto) [place] % (Auto) Eos % (Auto) Baso % (Auto) Absolute Neuts (auto) Absolute Lymphs (auto) Total Counted D-Dimer Quant (PE/DVT) Sodium 139 Potassium 3.7 Chloride 112 H Carbon Dioxide 21.0 Anion Gap 6 BUN 13 Creatinine 1.26 Estim Creat Clear Calc 47.54 Est GFR (MDRD) Af Amer 71 Est GFR (MDRD) Non-Af 59 L BUN/Creatinine Ratio 10.3 Glucose 83 Calcium 7.9 L Total Bilirubin AST ALT Alkaline Phosphatase Troponin I B-Natriuretic Peptide Total Protein Albumin Globulin Albumin/Globulin Ratio Urine Color Urine Clarity Urine pH Ur Specific [place] Urine Protein Urine Glucose (UA) Urine Ketones Urine Occult Blood Urine Nitrite Urine Bilirubin Urine Urobilinogen Ur Leukocyte Esterase Urine RBC Urine WBC Ur Squamous Epith Cells Urine Bacteria Urine Mucus POC Glucose 06/01/18 11:13 POC Glucose 92 Medical Necessity - Tobacco Use Smoking Status: Former smoker Assessment/Plan All Active Problems (Last Reviewed 06/01/18 @ 07:27 by Nico Ordoñez MD) Ureteral calculus, right (Acute) 1. Acute hypoxic respiratory insufficiency secondary to acute RSV B URI- pneumonia initially suspected on admission, ruled out. Afebrile. No leukocytosis. Chest x-ray shows stable pleural parenchymal changes at the left lung base. DC IV Levaquin. Albuterol/DuoNeb aerosols. Continue supplement oxygen to maintain O2 at or above 90%. Wean oxygen as tolerated. Prednisone 40 mg x 5 days. Walking pulse ox prior to discharge. 2. Acute kidney injury on chronic kidney disease stage III-suspect secondary to dehydration as well as obstructing right ureteral stone. IV fluids. Trend BMP. JAVIER resolved. 3. Acute metabolic encephalopathy secondary to #1/#2 with underlying vascular dementia-CT of brain ordered without acute process. Treat underlying processes. 4. Right distal ureteral obstructing stone-Dr. Ordoñez consulted. Plan for cystoscopy with right stent placement today. 5. Hyperlipidemia-continue Zetia. 6. Hypertension-stable, hold CATHERINE inhibitor given acute kidney injury. 7. Dementia, without behavioral disturbance-Aricept. 8. Hypothyroidism-continue Synthroid. 9. Depression-continue Lexapro regimen. 10. History of CVA-continue aspirin, Plavix, Zetia. 11. GERD-not on regimen. 12. Mild intermittent asthma-no acute exacerbation. 13. CAD status post CABG and stents-Follows with Dr. Melvin. Continue aspirin, Plavix, ramipril, Zetia. 14. Type 2 diabetes ulsuucsc-[id number]-[id number] ACHS with SSI. DVT prophylaxis-heparin subcu. This patient was seen by MADIHA Qureshi under the supervision of Dr. Pimentel. <George Pimentel E - Last Filed: 06/01/18 14:31> - Physical Exam Vital Signs Temp Pulse Resp BP Pulse Ox 97.1 F L 75 16 138/73 H 97 06/01/18 13:25 06/01/18 13:25 06/01/18 13:25 06/01/18 13:25 06/01/18 13:25 Oxygen Flow Rate (L/min) 2 Oxygen Delivery Method Room Air Weight: 182 lb 8.684 oz Body Mass Index (BMI) 383534.0 Finger Stick Blood Glucose 103 Intake and Output for Last 24 Hours 05/30/18 05/31/18 06/01/18 23:59 23:59 23:59 Intake Total 796 / 796 803 / 803 Output Total 200 / 200 Balance 596 / 596 803 / 803 Microbiology Past 72 Hours 05/31/18 20:30 Respiratory Panel (PCR) - Final Mucosa - Nose RSV B 05/31/18 13:25 Influenza Types A,B Direct FA (VIVIANE) - Final Mucosa - Nasopharyngeal Laboratory Tests Past 24 Hrs 05/31/18 05/31/18 05/31/18 13:35 13:35 16:20 WBC RBC Hgb Hct MCV MCH MCHC RDW RDW Differential Plt Count MPV Immature Gran % (Auto) Neut % (Auto) Lymph % (Auto) [place] % (Auto) Eos % (Auto) Baso % (Auto) Absolute Neuts (auto) Absolute Lymphs (auto) Total Counted D-Dimer Quant (PE/DVT) 0.42 Sodium Potassium Chloride Carbon Dioxide Anion Gap BUN Creatinine Estim Creat Clear Calc Est GFR (MDRD) Af Amer Est GFR (MDRD) Non-Af BUN/Creatinine Ratio Glucose Calcium B-Natriuretic Peptide 70.9 Urine Color Yellow Urine Clarity Clear Urine pH 5.0 Ur Specific [place] 1.020 Urine Protein 15 H Urine Glucose (UA) Normal Urine Ketones Negative Urine Occult Blood Negative Urine Nitrite Negative Urine Bilirubin Negative Urine Urobilinogen 1 H Ur Leukocyte Esterase 25 H Urine RBC 0-5 SEEN Urine WBC 0-5 SEEN Ur Squamous Epith Cells 0-5 SEEN Urine Bacteria 0 SEEN Urine Mucus 0 SEEN 06/01/18 06/01/18 06:56 06:56 WBC 5.8 RBC 4.14 L Hgb 11.6 L Hct 38.3 L MCV 92.5 MCH 28.0 MCHC 30.3 L RDW 14.5 RDW Differential 47.6 H Plt Count 128 L MPV 11.1 Immature Gran % (Auto) 0.200 Neut % (Auto) 61.2 Lymph % (Auto) 20.6 [place] % (Auto) 12.5 H Eos % (Auto) 5.2 H Baso % (Auto) 0.3 Absolute Neuts (auto) 3.5 Absolute Lymphs (auto) 1.19 Total Counted Not Reportable D-Dimer Quant (PE/DVT) Sodium 139 Potassium 3.7 Chloride 112 H Carbon Dioxide 21.0 Anion Gap 6 BUN 13 Creatinine 1.26 Estim Creat Clear Calc 47.54 Est GFR (MDRD) Af Amer 71 Est GFR (MDRD) Non-Af 59 L BUN/Creatinine Ratio 10.3 Glucose 83 Calcium 7.9 L B-Natriuretic Peptide Urine Color Urine Clarity Urine pH Ur Specific [place] Urine Protein Urine Glucose (UA) Urine Ketones Urine Occult Blood Urine Nitrite Urine Bilirubin Urine Urobilinogen Ur Leukocyte Esterase Urine RBC Urine WBC Ur Squamous Epith Cells Urine Bacteria Urine Mucus POC Glucose 06/01/18 11:13 POC Glucose 92 Assessment/Plan Hospitalist note: I am seeing this patient in conjunction with Patricia Huynh. I independently seen and examined the patient. Progress note above, laboratory data and imaging studies reviewed and I agree with above treatment plan. I saw the patient after he underwent cystoscopy dilatation of the right ureter and right stent placement. He denied any more back or right flank pain. He stated his breathing is getting better. Denies chest pain or palpitation. Denies fever chills. His vital signs are stable. - Physical Exam General: Alert, Cooperative, No apparent distress. HEENT: Atraumatic, PERRLA, EOMI. Neck: Supple, No JVD, Negative Carotid Bruits, Trachea Midline, Thyroid Normal. Lungs: Diminished breath sounds bilateral, otherwise clear, No rhonchi, No wheeze, No rales. Cardiovascular: Regular rate, Regular Rhythm, Normal S1, Normal S2, PMI Normal. Abdomen: Bowel Sounds Present, Soft, Non Tender, Non-Distended, No Hepato- splenomegaly. Extremities: No clubbing, No cyanosis, No edema Skin: No rashes, No breakdown Neurological: Neuro grossly intact Vital Signs are stable. Assessment and plan: #1 acute hypoxic/insufficiency/URTI with RSV type B.: Chest x-ray revealed chronic left base parenchymal changes, likely due to atelectasis, no acute findings. Patient has been afebrile, no leukocytosis. Pneumonia ruled out. D- dimer was negative. Respiratory panel for viruses came back positive for respiratory syncytial virus type B. Blood cultures pending. No indication for IV antibiotics. Plan to continue bronchodilators, incentive spirometer, wean off oxygen as tolerated. #2 acute kidney symptoms stage III chronic kidney disease: Baseline creatinine has been around 1.3, admission creatinine was 1.65 and patient has been on IV fluids. This can came down to 1.6, improving. #4 right ureteral stone with obstruction: Status post cystoscopy, dilation and placement of right ureteral stent. That was done today. Patient denies any more flank pain. Kidney function is improving. Urinalysis revealed no evidence of UTI. #4 acute metabolic encephalopathy: In context of history of dementia, likely exacerbated by hypoxia and acute kidney injury. CT scan brain showed no acute findings. #5 other chronic medical problems: Stable, continue current medications as above. This note was generated with [employer] dictation software. It may contain incorrect words, spelling, and punctuation that were not noted in checking the note before signing. Code Visit Inpatient E&M: 01526 Subs Hosp L2
[2018-06-01] MEDS: Lidocaine Jelly 2% 20 ML Syringe (URO-JET) 20 APPLIC ×2 (12:40→12:42)
--- NOTE | 2018-06-01 12:49 | PCM.OPRPT ---
Problem List (1) Ureteral calculus, right Status: Acute Report of Operation Date of Procedure: 06/01/18 Pre-Operative Diagnosis: Impacted right ureteral calculi distal Post-Operative Diagnosis: The same Surgery/Procedure Performed:: Cystoscopy, retrograde injection of contrast and lidocaine jelly, dilation of the ureter, and right stent placement. Description of Surgical Findings:: 78-year-old male presented to the hospital with severe pain in the right side CAT scan was done demonstrated a large stone in the distal ureter looked impacted at this point we have taken to the operating room to place a stent to alleviate the obstruction let the ureter dilate and then bring him back for ureteroscopy. 78-year-old male taken back to the operating at the smooth induction of MAC local he was placed supine on the table the penis testicles were prepped and draped in usual sterile fashion, we used Betadine soap, the penis was prepped and draped in usual fashion went into the bladder with a 21 [place]ian rigid cystourethroscope the entire length of the urethra is normal assessment pendulous urethra is normal the bulbar urethra normal sphincter was intact prostate was slightly enlarged with mild bilateral hypertrophy appear to have a prior TURP with some mild regrowth. I then identified the right ureteral orifice advanced a wire I could feel the wire hit the stone in the left and then the wire went past the stone without any problems we then try to advance the stent over the wire however the stent would get to the stone and I could not push the stent past the stone is too impacted so did not force the issue I then backed out the stent and then next to the stent I used a ureteral catheter to dilate the ureter some more and then after this I pulled back the ureteral catheter and then left the wire in place and then next to the wire went in with a ureteral catheter injected contrast and and some lubricating lidocaine jelly around the stone to lubricate the stone and then I went back in and used a 4.5 [place]ian with a 26 cm length and the stent was able to get up the ureter on that side once a stent was in good position I pulled the wire the stent coiled in the kidney and bladder good position drain the bladder and the patient's anesthetic is currently being reversed plan to see him in the office for checkup a urine check and then want to set him up for ureteroscopy and laser. Type of Anesthesia:: Local MAC Drains: 4.5 stent right side - Admit VTE Documentation VTE Present on Admission: No VTE Mechan Device Prophylaxis: SCD's
--- NOTE | 2018-06-01 13:09 | CASEMGMT ---
RN CM Note. Unable to complete assessment, pt is in surgery. Dionne BSN RN ACM
[2018-06-01 15:21] LABS: Bedside Glucose 82 mg/dL (70-110)
[2018-06-01] MEDS: Clopidogrel Bisulfate 75 MG Tablet PO (15:37)
[2018-06-01] MEDS: Escitalopram Oxalate 10 MG Tablet PO (15:38)
[2018-06-01] MEDS: predniSONE 20 MG Tablet 40 MG PO (15:39)
--- NOTE | 2018-06-01 17:20 | RAD_ITS ---
STUDY: X-RAY CHEST REASON FOR EXAM: Male, 78 years old. Cough TECHNIQUE: PA and lateral chest COMPARISON: 06/01/2017 FINDINGS: Median sternotomy. Ostial markers consistent with CABG. The lungs appear clear bilaterally. Hazy opacities at the left cardiac apex consistent with normal variant pericardial fat pad. Mild cardiomegaly. Unremarkable mediastinal silhouette, demi and pleural margins. No acute osseous process. There is gaseous distention of several loops of bowel in the upper abdomen, nonspecific. RAD/Chest PA and Lateral IMPRESSION: No acute cardiopulmonary process. Gaseous distention of bowel in the upper abdomen is nonspecific. Electronically Signed: Jonh Younger MD at 17:48 EST Tel , Service support ,
--- NOTE | 2018-06-01 17:44 | NURSING ---
Pt back from xray at 1730. Very agitated. Combative with brief change. URine noted to be red in the brief. Pt states pain when urinating but refusing any pain meds. Refusing everything. keeps trying to climb out of bed. Will continue to monitor to keep pt safe.
[2018-06-01] MEDS: Ipratropium/Albuterol Sulfate 3 ML AMPUL.NEB INHALATION (19:45)
--- NOTE | 2018-06-01 21:43 | CPS ---
pt became agitated midway of the tx and had to end tx early
[2018-06-01] MEDS: 0.9% Normal Saline 1,000 ML 150 ML IV (22:37)
[2018-06-01] MEDS: Donepezil HCl 10 MG Tablet PO (22:37)
[2018-06-01 23:06] LABS: Bedside Glucose 162 mg/dL (70-110)
[2018-06-02] VITALS (13 sets, daily range): BP systolic 123–160; BP diastolic 57–92; PULSE 77–97; RESP 16–20; TEMP 36.7–37; O2SAT 93–98
[2018-06-02] MEDS: Acetaminophen 325 MG Tablet 650 MG PO (02:21)
[2018-06-02] MEDS: Heparin Injection (Vial) 5,000 UNIT/ML VIAL 5000 UNIT SC ×2 (06:27→15:59)
[2018-06-02] MEDS: Escitalopram Oxalate 10 MG Tablet PO (08:46)
[2018-06-02] MEDS: Clopidogrel Bisulfate 75 MG Tablet PO (08:46)
[2018-06-02] MEDS: predniSONE 20 MG Tablet 40 MG PO (08:47)
[2018-06-02 08:51] LABS: Bedside Glucose 103 mg/dL (70-110)
--- NOTE | 2018-06-02 13:14 | PCM.PROGNOTE ---
<Patricia Huynh - Last Filed: 06/02/18 13:53> Patient Problems: Active and Suspected Problems (Last Reviewed 06/01/18 @ 07:27 by Nico Ordoñez MD) Ureteral calculus, right (Acute) Subjective: Patient seen and examined. Confused this morning. Denies current complaints. Denies pain, denies shortness of breath. - Physical Exam General: Alert, Cooperative, No apparent distress HEENT: Atraumatic Neck: Supple, No JVD, Negative Carotid Bruits Lungs: Clear to auscultation, Diminished Cardiovascular: Regular rate, Regular Rhythm, Normal S1, Normal S2, No murmurs Abdomen: Bowel Sounds Present, Soft, Non Tender, Non-Distended Extremities: No clubbing, No cyanosis, No edema, Capillary Refill Less than 3 Seconds Skin: No rashes, No breakdown Musculoskeletal: No Tenderness to Palpation of Joints or Extremities Neurological: Cranial nerves II-XII grossly intact, Neuro grossly intact Psych/Mental Status: Normal Affect, Appropriate Vital Signs Temp Pulse Resp BP Pulse Ox 98.6 F 80 16 150/84 H 98 06/02/18 11:56 06/02/18 11:56 06/02/18 11:56 06/02/18 11:56 06/02/18 11:56 Oxygen Flow Rate (L/min) 2 Oxygen Delivery Method Room Air Weight: 178 lb 2.136 oz Body Mass Index (BMI) 679511.0 Finger Stick Blood Glucose 103 Intake and Output for Last 24 Hours 05/31/18 06/01/18 06/02/18 23:59 23:59 23:59 Intake Total 796 / 796 803 / 803 1358 / 1358 Output Total 200 / 200 Balance 596 / 596 803 / 803 1358 / 1358 Microbiology Past 72 Hours 05/31/18 13:50 Blood Culture - Preliminary Blood Culture (Wb) - Right Hand No growth in 48 hours. 05/31/18 13:35 Blood Culture - Preliminary Blood Culture (Wb) - Left Forearm No growth in 48 hours. 05/31/18 20:30 Respiratory Panel (PCR) - Final Mucosa - Nose RSV B 05/31/18 13:25 Influenza Types A,B Direct FA (VIVIANE) - Final Mucosa - Nasopharyngeal POC Glucose 02/06/19 02/05/19 02/05/19 08:45 22:39 15:07 POC Glucose 103 162 H 82 Medical Necessity - Tobacco Use Smoking Status: Former smoker Assessment/Plan All Active Problems (Last Reviewed 06/01/18 @ 07:27 by Nico Ordoñez MD) Ureteral calculus, right (Acute) 1. Acute hypoxic respiratory insufficiency secondary to acute RSV B URI-pneumonia initially suspected on admission, ruled out. Afebrile. No leukocytosis. Chest x-ray shows stable pleural parenchymal changes at the left lung base. DC IV Levaquin. Albuterol/DuoNeb aerosols. Prednisone 40 mg x 5 days. Patient weaned off of oxygen, now stable on room air. Walking pulse ox prior to discharge. 2. Acute kidney injury on chronic kidney disease stage III-suspect secondary to dehydration as well as obstructing right ureteral stone. IV fluids. Trend BMP. JAVIER resolved. 3. Acute metabolic encephalopathy secondary to #1/#2 with underlying vascular dementia-CT of brain ordered without acute process. Treat underlying processes. 4. Right distal ureteral obstructing stone-Dr. Ordoñez consulted. Plan for cystoscopy with right stent placement 06/01/18. Outpatient follow up. 5. Hyperlipidemia-continue Zetia. 6. Hypertension-stable, home CATHERINE inhibitor resumed. 7. Dementia, without behavioral disturbance-Aricept. 8. Hypothyroidism-continue Synthroid. 9. Depression-continue Lexapro regimen. 10. History of CVA-continue aspirin, Plavix, Zetia. 11. GERD-not on regimen. 12. Mild intermittent asthma-no acute exacerbation. 13. CAD status post CABG and stents-Follows with Dr. Melvin. Continue aspirin, Plavix, ramipril, Zetia. 14. Type 2 diabetes [id number] ACHS with SSI. DVT prophylaxis-heparin subcu. Discharge planning: Anticipate discharge home tomorrow pending PT recommendations. Patient lives at home with , will contact to enter patient is able to resume prior arrangements. This patient was seen by MADIHA Qureshi under the supervision of Dr. Pimentel. <George Piemntel E - Last Filed: 06/02/18 14:15> - Physical Exam Vital Signs Temp Pulse Resp BP Pulse Ox 98.6 F 80 16 150/84 H 98 06/02/18 11:56 06/02/18 11:56 06/02/18 11:56 06/02/18 11:56 06/02/18 11:56 Oxygen Flow Rate (L/min) 2 Oxygen Delivery Method Room Air Weight: 178 lb 2.136 oz Body Mass Index (BMI) 387275.0 Finger Stick Blood Glucose 103 Intake and Output for Last 24 Hours 05/31/18 06/01/18 06/02/18 23:59 23:59 23:59 Intake Total 796 / 796 803 / 803 1358 / 1358 Output Total 200 / 200 Balance 596 / 596 803 / 803 1358 / 1358 Microbiology Past 72 Hours 05/31/18 13:50 Blood Culture - Preliminary Blood Culture (Wb) - Right Hand No growth in 48 hours. 05/31/18 13:35 Blood Culture - Preliminary Blood Culture (Wb) - Left Forearm No growth in 48 hours. 05/31/18 20:30 Respiratory Panel (PCR) - Final Mucosa - Nose RSV B 05/31/18 13:25 Influenza Types A,B Direct FA (VIVIANE) - Final Mucosa - Nasopharyngeal POC Glucose 06/02/18 06/01/18 06/01/18 08:45 22:39 15:07 POC Glucose 103 162 H 82 Assessment/Plan Hospitalist note: I am seeing this patient in conjunction with Patricia Huynh. I independently seen and examined the patient. Progress note above laboratory data reviewed and I agree with above treatment plan. Patient seen and examined today. Initially, patient denies any complaints but he complained of mild right groin discomfort. No other complaints. His vitals are stable. - Physical Exam General: Alert, Cooperative, No apparent distress. HEENT: Atraumatic, PERRLA, EOMI. Neck: Supple, No JVD, Negative Carotid Bruits, Trachea Midline, Thyroid Normal. Lungs: Diminished breath sounds bilateral, otherwise clear, No rhonchi, No wheeze, No rales. Cardiovascular: Regular rate, Regular Rhythm, Normal S1, Normal S2, PMI Normal. Abdomen: Bowel Sounds Present, Soft, Non Tender, Non-Distended, No Hepato-splenomegaly. Extremities: No clubbing, No cyanosis, No edema Skin: No rashes, No breakdown Neurological: Neuro grossly intact Vital Signs are stable. Assessment and plan: #1 acute hypoxic respiratory insufficiency/URTI with RSV type B.: Pneumonia ruled out. D-dimer was negative. Respiratory panel for viruses came back positive for respiratory syncytial virus type B. Blood cultures showed no growth in 48 hours. Patient is satting normally on room air. Plan: Continue same treatment, patient will need placement to correction facility, plan for TCU. #2 acute kidney symptoms stage III chronic kidney disease: Baseline creatinine has been around 1.3, admission creatinine was 1.65 and patient has been on IV fluids. Creatinine came down to 1.26, improving. #4 right ureteral stone with obstruction: Status post cystoscopy, dilation and placement of right ureteral stent. Kidney function remained stable as above. #4 acute metabolic encephalopathy: In context of history of dementia, likely exacerbated by hypoxia and acute kidney injury. CT scan brain showed no acute findings. #5 other chronic medical problems: Stable, continue current medications as above. This note was generated with [employer] dictation software. It may contain incorrect words, spelling, and punctuation that were not noted in checking the note before signing. Code Visit Inpatient E&M: 51237 Subs Hosp L2
--- NOTE | 2018-06-02 13:20 | PN_ITS ---
Addendum entered and electronically signed by MADIHA Qureshi 06/02/18 13:54: Code Visit unable to care for patient at home. Plan for TCU at [place]. CM involved. Original Note: <Patricia Huynh - Last Filed: 06/02/18 13:53> Patient Problems: Active and Suspected Problems (Last Reviewed 06/01/18 @ 07:27 by Nico Ordoñez MD) Ureteral calculus, right (Acute) Subjective: Patient seen and examined. Confused this morning. Denies current complaints. Denies pain, denies shortness of breath. - Physical Exam General: Alert, Cooperative, No apparent distress HEENT: Atraumatic Neck: Supple, No JVD, Negative Carotid Bruits Lungs: Clear to auscultation, Diminished Cardiovascular: Regular rate, Regular Rhythm, Normal S1, Normal S2, No murmurs Abdomen: Bowel Sounds Present, Soft, Non Tender, Non-Distended Extremities: No clubbing, No cyanosis, No edema, Capillary Refill Less than 3 Seconds Skin: No rashes, No breakdown Musculoskeletal: No Tenderness to Palpation of Joints or Extremities Neurological: Cranial nerves II-XII grossly intact, Neuro grossly intact Psych/Mental Status: Normal Affect, Appropriate Vital Signs Temp Pulse Resp BP Pulse Ox 98.6 F 80 16 150/84 H 98 06/02/18 11:56 06/02/18 11:56 06/02/18 11:56 06/02/18 11:56 06/02/18 11:56 Oxygen Flow Rate (L/min) 2 Oxygen Delivery Method Room Air Weight: 178 lb 2.136 oz Body Mass Index (BMI) 375659.0 Finger Stick Blood Glucose 103 Intake and Output for Last 24 Hours 05/31/18 06/01/18 06/02/18 23:59 23:59 23:59 Intake Total 796 / 796 803 / 803 1358 / 1358 Output Total 200 / 200 Balance 596 / 596 803 / 803 1358 / 1358 Microbiology Past 72 Hours 05/31/18 13:50 Blood Culture - Preliminary Blood Culture (Wb) - Right Hand No growth in 48 hours. 05/31/18 13:35 Blood Culture - Preliminary Blood Culture (Wb) - Left Forearm No growth in 48 hours. 05/31/18 20:30 Respiratory Panel (PCR) - Final Mucosa - Nose RSV B 05/31/18 13:25 Influenza Types A,B Direct FA (VIVIANE) - Final Mucosa - Nasopharyngeal POC Glucose 06/02/18 06/01/18 06/01/18 08:45 22:39 15:07 POC Glucose 103 162 H 82 Medical Necessity - Tobacco Use Smoking Status: Former smoker Assessment/Plan All Active Problems (Last Reviewed 06/01/18 @ 07:27 by Nico Ordoñez MD) Ureteral calculus, right (Acute) 1. Acute hypoxic respiratory insufficiency secondary to acute RSV B URI- pneumonia initially suspected on admission, ruled out. Afebrile. No leukocytosis. Chest x-ray shows stable pleural parenchymal changes at the left lung base. DC IV Levaquin. Albuterol/DuoNeb aerosols. Prednisone 40 mg x 5 days. Patient weaned off of oxygen, now stable on room air. Walking pulse ox prior to discharge. 2. Acute kidney injury on chronic kidney disease stage III-suspect secondary to dehydration as well as obstructing right ureteral stone. IV fluids. Trend BMP. JAVIER resolved. 3. Acute metabolic encephalopathy secondary to #1/#2 with underlying vascular dementia-CT of brain ordered without acute process. Treat underlying processes. 4. Right distal ureteral obstructing stone-Dr. Ordoñez consulted. Plan for cystoscopy with right stent placement 06/01/18. Outpatient follow up. 5. Hyperlipidemia-continue Zetia. 6. Hypertension-stable, home CATHERINE inhibitor resumed. 7. Dementia, without behavioral disturbance-Aricept. 8. Hypothyroidism-continue Synthroid. 9. Depression-continue Lexapro regimen. 10. History of CVA-continue aspirin, Plavix, Zetia. 11. GERD-not on regimen. 12. Mild intermittent asthma-no acute exacerbation. 13. CAD status post CABG and stents-Follows with Dr. Melvin. Continue aspirin, Plavix, ramipril, Zetia. 14. Type 2 diabetes [id number]-Vqlg-Langd ACHS with SSI. DVT prophylaxis-heparin subcu. Discharge planning: Anticipate discharge home tomorrow pending PT recommendations. Patient lives at home with , will contact to enter patient is able to resume prior arrangements. This patient was seen by MADIHA Qureshi under the supervision of Dr. Pimentel. <George Pimentel E - Last Filed: 06/02/18 14:15> - Physical Exam Vital Signs Temp Pulse Resp BP Pulse Ox 98.6 F 80 16 150/84 H 98 06/02/18 11:56 06/02/18 11:56 06/02/18 11:56 06/02/18 11:56 06/02/18 11:56 Oxygen Flow Rate (L/min) 2 Oxygen Delivery Method Room Air Weight: 178 lb 2.136 oz Body Mass Index (BMI) 126043.0 Finger Stick Blood Glucose 103 Intake and Output for Last 24 Hours 05/31/18 06/01/18 06/02/18 23:59 23:59 23:59 Intake Total 796 / 796 803 / 803 1358 / 1358 Output Total 200 / 200 Balance 596 / 596 803 / 803 1358 / 1358 Microbiology Past 72 Hours 05/31/18 13:50 Blood Culture - Preliminary Blood Culture (Wb) - Right Hand No growth in 48 hours. 05/31/18 13:35 Blood Culture - Preliminary Blood Culture (Wb) - Left Forearm No growth in 48 hours. 05/31/18 20:30 Respiratory Panel (PCR) - Final Mucosa - Nose RSV B 05/31/18 13:25 Influenza Types A,B Direct FA (VIVIANE) - Final Mucosa - Nasopharyngeal POC Glucose 06/02/18 06/01/18 06/01/18 08:45 22:39 15:07 POC Glucose 103 162 H 82 Assessment/Plan Hospitalist note: I am seeing this patient in conjunction with Patricia Huynh. I independently seen and examined the patient. Progress note above laboratory data reviewed and I agree with above treatment plan. Patient seen and examined today. Initially, patient denies any complaints but he complained of mild right groin discomfort. No other complaints. His vitals are stable. - Physical Exam General: Alert, Cooperative, No apparent distress. HEENT: Atraumatic, PERRLA, EOMI. Neck: Supple, No JVD, Negative Carotid Bruits, Trachea Midline, Thyroid Normal. Lungs: Diminished breath sounds bilateral, otherwise clear, No rhonchi, No wheeze, No rales. Cardiovascular: Regular rate, Regular Rhythm, Normal S1, Normal S2, PMI Normal. Abdomen: Bowel Sounds Present, Soft, Non Tender, Non-Distended, No Hepato- splenomegaly. Extremities: No clubbing, No cyanosis, No edema Skin: No rashes, No breakdown Neurological: Neuro grossly intact Vital Signs are stable. Assessment and plan: #1 acute hypoxic respiratory insufficiency/URTI with RSV type B.: Pneumonia ruled out. D-dimer was negative. Respiratory panel for viruses came back positive for respiratory syncytial virus type B. Blood cultures showed no growth in 48 hours. Patient is satting normally on room air. Plan: Continue same treatment, patient will need placement to senior care facility, plan for TCU. #2 acute kidney symptoms stage III chronic kidney disease: Baseline creatinine has been around 1.3, admission creatinine was 1.65 and patient has been on IV f luids. Creatinine came down to 1.26, improving. #4 right ureteral stone with obstruction: Status post cystoscopy, dilation and placement of right ureteral stent. Kidney function remained stable as above. #4 acute metabolic encephalopathy: In context of history of dementia, likely exacerbated by hypoxia and acute kidney injury. CT scan brain showed no acute findings. #5 other chronic medical problems: Stable, continue current medications as above. This note was generated with [employer] dictation software. It may contain incorrect words, spelling, and punctuation that were not noted in checking the note before signing. Code Visit Inpatient E&M: 72498 Subs Hosp L2
--- NOTE | 2018-06-02 13:35 | CASEMGMT ---
EMA SHAW assessment: Face to Face with patient for initial transition planning/care coordination assessment. EMA SHAW introduced self and role at [facility], pt voices understanding and consents to assessment at this time. Pt is lying in bed in no distress at this time. Pt's at bedside and answers all questions for pt at this time d/t pt's dementia. Care providers, pharmacy, and demographics verified at this time at this time. PCP: Lorrie Specialists: [place], cardio; Tiago, uro Preferred Pharmacy: [facility] Insurance: [employer] Prescription Benefit: MMOMCR Living Will/HPOA: states that pt does have LW/HPOA and is aware at this time that they are not on file at [facility] at this time. LNOK: Beryl Torre, ; Christel Trinidad, daughter Living Arrangements: states pt currently lives with her in states pt was discharged from TCU about 3 weeks ago and she states that pt did well for about a week but then it has been 'going downhill.' states that she completes most ADL's for pt at this time and does not know if she could take him home at this time. would like referral to TCU. states that pt's dementia has also been getting worse. Transportation: states that she drives and states no transportation concerns at this time. DME/HHC: Pt has the following DME at home: cane, walker, raised toilet seat, and grab bars. states no need for any further DME at this time. Pt has had HHC from [facility] in the past and has been to TCU. does state concerns with pt going home at time of discharge and referral made to [facility] for pt to go to TCU, voices understanding. Pt is retired. Pt does not smoke or drink ETOH. states no further concerns/needs at this time. Referral to TCU and precert started at this time. Plan: TCU, pending precert. S[place]en EMA SHAW
--- NOTE | 2018-06-02 14:16 | CASEMGMT ---
Addendum entered by Tara Graham 06/02/18 15:38: [facility] started the pre-cert. Tara ESCOBAR Original Note: Addendum entered by Tara Graham 06/02/18 15:30: SUSAN received a call from Priscila with [facility]. She approved the SNF level of care and now [facility] can start the Pre-cert request. SUSAN called [facility] and left her a voice mail letting her know. Tara ESCOBAR Original Note: Patient's would like patient to go to TCU for rehab. SUSAN spoke with [facility] and they would have a bed for patient. SUSAN faxed clinicals to [facility] to obtain the okay to request a pre-cert. SUSAN spoke with patient's and family letting them know this information. Plan: TCU pending insurance approval Tara ESCOBAR
[2018-06-02] MEDS: Ramipril 5 MG Capsule PO (16:00)
--- NOTE | 2018-06-02 18:49 | CPS ---
Discussed with RN on pts. reported agitation throughout day. RN informed me that pt. has been having no difficulty breathing or SOB all day. Advised on letting pt. rest and not administering treatment due to possible agitation with arousal. Documented against scheduled treatment.
[2018-06-02] MEDS: Donepezil HCl 10 MG Tablet PO (21:36)
[2018-06-03] VITALS (11 sets, daily range): BP systolic 74–135; BP diastolic 49–74; PULSE 73–152; RESP 16–20; TEMP 36.7–36.9; O2SAT 94–97
[2018-06-03] MEDS: Heparin Injection (Vial) 5,000 UNIT/ML VIAL 5000 UNIT SC (05:58)
[2018-06-03 06:47] LABS: Hematocrit 39.8 % (40-54); Hemoglobin 12.2 g/dl (13.0-16.5); Mean Corp Hgb Conc 30.7 g/gl (32-36); Mean Corpuscular Hgb 28.1 pg (27.0-32.0); Mean Corpuscular Volume 91.7 fL (80-94); Mean Platelet Vol. 10.9 fl (6.2-12.0); Platelet Count 166 K/mm3 (150-450); RBC Distribution Width CV 14.6 % (11.6-14.6); RBC Distribution Width SD 47.6 fl (35.1-43.9); Red Blood Count 4.34 M/mm3 (4.6-6.2); White Blood Count 7.9 K/mm3 (4.4-11.0)
[2018-06-03 06:48] LABS: Scan Indicated on CBC? Y/N NO
[2018-06-03 07:04] LABS: Anion Gap 8 (5-15); BUN 18 mg/dL (7-18); BUN/Creat Ratio 13.8 RATIO (10-20); Calcium,Total 8.5 mg/dL (8.5-10.1); Chloride 109 mmol/L (98-107); EST Glomerular Filtration Rate 57 mL/min (>60); Est Glom Filt Rate - Afr Amer 68 mL/min (>60); Estimated Creatinine Clearance 51.81 ml/min; Glucose 89 mg/dL (74-106); Potassium 3.6 mmol/L (3.5-5.1); Sodium Level 143 mmol/L (136-145)
[2018-06-03] MEDS: Ipratropium/Albuterol Sulfate 3 ML AMPUL.NEB INHALATION ×2 (07:53→11:11)
[2018-06-03] MEDS: predniSONE 20 MG Tablet 40 MG PO (10:42)
[2018-06-03] MEDS: Clopidogrel Bisulfate 75 MG Tablet PO (10:42)
[2018-06-03] MEDS: Escitalopram Oxalate 10 MG Tablet PO (10:42)
[2018-06-03] MEDS: Ramipril 5 MG Capsule PO (10:42)
[2018-06-03] MEDS: Glucerna Shake 120 ML LIQUID PO (10:48)
[2018-06-03] MEDS: Acetaminophen 325 MG Tablet 650 MG PO (10:48)
--- NOTE | 2018-06-03 10:57 | NURSING ---
Dr. Pimentel in room while orthostatic vs are being taken. He is aware of results.
--- NOTE | 2018-06-03 14:49 | PCM.PROGNOTE ---
<Braden Gutierrez - Last Filed: 06/03/18 14:49> Patient Problems: Active and Suspected Problems (Last Reviewed 06/01/18 @ 07:27 by Nico Ordoñez MD) Ureteral calculus, right (Acute) RSV infection (Acute) JAVIER (acute kidney injury) (Acute) Acute metabolic encephalopathy (Acute) Subjective: Patient denies abdominal pain, dysuria. Patient reports this morning he felt some dizziness and lightheadedness when he is standing up and walking to use the bathroom. He has no palpitations. No chest pain. No flank pain. No fevers or chills overnight. - Physical Exam General: Alert, Oriented x3, Cooperative HEENT: Atraumatic, PERRLA, EOMI, Normocephalic Neck: Supple, No JVD, Negative Carotid Bruits Lungs: Clear to auscultation, Normal air movement Cardiovascular: Regular rate, No murmurs Abdomen: Bowel Sounds Present, Soft, Non Tender Extremities: No edema, Capillary Refill Less than 3 Seconds Skin: No rashes, No breakdown Musculoskeletal: No Tenderness to Palpation of Joints or Extremities Neurological: Cranial nerves II-XII grossly intact Psych/Mental Status: Normal Affect, Appropriate, Alert and oriented to time, place, person, mood and affect Vital Signs Temp Pulse Resp BP Pulse Ox 98.4 F 79 16 117/58 L 94 06/03/18 10:38 06/03/18 11:14 06/03/18 11:14 06/03/18 10:50 06/03/18 11:22 Oxygen Flow Rate (L/min) 2 Oxygen Delivery Method Room Air Weight: 175 lb 4.28 oz Body Mass Index (BMI) 073857.0 Finger Stick Blood Glucose 103 Orthostatic Vital Signs Start: 06/03/18 10:50 Freq: q24h Status: Active Protocol: Activity Type Activity Date Activity User E-Sign Co-Sign Detail Recorded Client Recorded Date Recorded By Document 06/03/18 10:50 T [id number] 06/03/18 10:57 KLT 06/03/18 10:50 Orthostatic Vitals Standing -Blood Pressure (90/60-120/80) 74/53 L -Extremity Use Left Arm -Pulse Rate (60-100) 152 H Sitting -Blood Pressure (90/60-120/80) 83/51 L -Extremity Use Left Arm -Pulse Rate (60-100) 91 Lying -Blood Pressure (90/60-120/80) 117/58 L -Extremity Use Left Arm -Pulse Rate (60-100) 75 06/03/18 10:57 Nursing Note by Troy Gil Dr. in room while orthostatic vs are being taken. He is aware of results. Initialized on 06/03/18 10:57 - END OF NOTE Intake and Output for Last 24 Hours 06/01/18 06/02/18 06/03/18 23:59 23:59 23:59 Intake Total 803 / 803 1558 / 1558 Output Total 3 / 3 Balance 803 / 803 1555 / 1555 Microbiology Past 72 Hours 05/31/18 13:50 Blood Culture - Preliminary Blood Culture (Wb) - Right Hand No growth in 48 hours. 05/31/18 13:35 Blood Culture - Preliminary Blood Culture (Wb) - Left Forearm No growth in 48 hours. 05/31/18 20:30 Respiratory Panel (PCR) - Final Mucosa - Nose RSV B 05/31/18 13:25 Influenza Types A,B Direct FA (VIVIANE) - Final Mucosa - Nasopharyngeal Laboratory Tests Past 24 Hrs 06/03/18 06/03/18 06:25 06:25 WBC 7.9 RBC 4.34 L Hgb 12.2 L Hct 39.8 L MCV 91.7 MCH 28.1 MCHC 30.7 L RDW 14.6 RDW Differential 47.6 H Plt Count 166 MPV 10.9 Sodium 143 Potassium 3.6 Chloride 109 H Carbon Dioxide 26.0 Anion Gap 8 BUN 18 Creatinine 1.30 Estim Creat Clear Calc 51.81 Est GFR (MDRD) Af Amer 68 Est GFR (MDRD) Non-Af 57 L BUN/Creatinine Ratio 13.8 Glucose 89 Calcium 8.5 Medical Necessity - Tobacco Use Smoking Status: Former smoker Assessment/Plan All Active Problems (Last Reviewed 06/01/18 @ 07:27 by Nico Ordoñez MD) Ureteral calculus, right (Acute) RSV infection (Acute) JAVIER (acute kidney injury) (Acute) Acute metabolic encephalopathy (Acute) 1. Acute RSV URI-continue supportive therapy prednisone times 5 days. Aerosols as needed. 2. Acute kidney injury, CKD stage III-secondary to dehydration and obstructing right ureteral stone. AK I resolved now. Maintenance fluids stopped. 3. Orthostatic hypotension-possibly secondary to increased vagal stimulation from stent, combined with dehydration. Bolus given. Will recheck. 4. Right distal ureteral obstructing stone-patient underwent cystoscopy and right stent placement on the fifth. He will follow-up as an outpatient with Dr. murrell. 5. Acute metabolic encephalopathy secondary to viral URI and AK I-improved. CT negative. 6. Hypertension-stable 7. Dementia-no behavioral disturbances. Continue Aricept. 8. Hypothyroidism-Synthroid 9. Depression-Lexapro 10. History of CVA-aspirin Plavix, Zuri 11. History of asthma-currently no wheezing or exacerbation. No shortness of breath. Continue supportive care as per #1. 12. Type 2 diabetes mellitus-sliding scale insulin, Accu-Cheks. DVT prophylaxis: Heparin Discharge planning: Patient is waiting for precertification to go to senior care. This patient was seen by Braden Gutierrez PA-C under the supervision of Doctor Margarito. <George Pimentel E - Last Filed: 06/03/18 15:29> - Physical Exam Vital Signs Temp Pulse Resp BP Pulse Ox 98.0 F 85 16 108/49 L 95 06/03/18 15:05 06/03/18 15:05 06/03/18 15:05 06/03/18 15:05 06/03/18 15:05 Oxygen Flow Rate (L/min) 2 Oxygen Delivery Method Room Air Weight: 175 lb 4.28 oz Body Mass Index (BMI) 553358.0 Finger Stick Blood Glucose 103 Orthostatic Vital Signs Start: 06/03/18 10:50 Freq: q24h Status: Active Protocol: Activity Type Activity Date Activity User E-Sign Co-Sign Detail Recorded Client Recorded Date Recorded By Document 06/03/18 10:50 KLT [id number] 06/03/18 10:57 KLT 06/03/18 10:50 Orthostatic Vitals Standing -Blood Pressure (90/60-120/80) 74/53 L -Extremity Use Left Arm -Pulse Rate (60-100) 152 H Sitting -Blood Pressure (90/60-120/80) 83/51 L -Extremity Use Left Arm -Pulse Rate (60-100) 91 Lying -Blood Pressure (90/60-120/80) 117/58 L -Extremity Use Left Arm -Pulse Rate (60-100) 75 06/03/18 10:57 Nursing Note by Troy Gil Dr. in room while orthostatic vs are being taken. He is aware of results. Initialized on 06/03/18 10:57 - END OF NOTE Intake and Output for Last 24 Hours 06/01/18 06/02/18 06/03/18 23:59 23:59 23:59 Intake Total 803 / 803 1558 / 1558 300 / 300 Output Total 3 / 3 Balance 803 / 803 1555 / 1555 300 / 300 Microbiology Past 72 Hours 05/31/18 13:50 Blood Culture - Preliminary Blood Culture (Wb) - Right Hand No growth in 48 hours. 05/31/18 13:35 Blood Culture - Preliminary Blood Culture (Wb) - Left Forearm No growth in 48 hours. 05/31/18 20:30 Respiratory Panel (PCR) - Final Mucosa - Nose RSV B 05/31/18 13:25 Influenza Types A,B Direct FA (VIVIANE) - Final Mucosa - Nasopharyngeal Laboratory Tests Past 24 Hrs 06/03/18 06/03/18 06:25 06:25 WBC 7.9 RBC 4.34 L Hgb 12.2 L Hct 39.8 L MCV 91.7 MCH 28.1 MCHC 30.7 L RDW 14.6 RDW Differential 47.6 H Plt Count 166 MPV 10.9 Sodium 143 Potassium 3.6 Chloride 109 H Carbon Dioxide 26.0 Anion Gap 8 BUN 18 Creatinine 1.30 Estim Creat Clear Calc 51.81 Est GFR (MDRD) Af Amer 68 Est GFR (MDRD) Non-Af 57 L BUN/Creatinine Ratio 13.8 Glucose 89 Calcium 8.5 Assessment/Plan Hospitalist note: I am seeing this patient in conjunction with Patricia Huynh. I independently seen and examined the patient. Progress note above laboratory data reviewed and I agree with above treatment plan. Patient seen and examined today. He has no significant complaints. His orthostatic vitals were positive but he was barely symptomatic, complained of minimal dizziness. He received IV fluid bolus. - Physical Exam General: Alert, Cooperative, No apparent distress. HEENT: Atraumatic, PERRLA, EOMI. Neck: Supple, No JVD, Negative Carotid Bruits, Trachea Midline, Thyroid Normal. Lungs: Diminished breath sounds bilateral, otherwise clear, No rhonchi, No wheeze, No rales. Cardiovascular: Regular rate, Regular Rhythm, Normal S1, Normal S2, PMI Normal. Abdomen: Bowel Sounds Present, Soft, Non Tender, Non-Distended, No Hepato-splenomegaly. Extremities: No clubbing, No cyanosis, No edema Skin: No rashes, No breakdown Neurological: Neuro grossly intact Vital Signs are stable. Assessment and plan: #1 acute hypoxic respiratory insufficiency/URTI with RSV type B.: Pneumonia ruled out. D-dimer was negative. Respiratory panel for viruses came back positive for respiratory syncytial virus type B. Blood cultures showed no growth in 48 hours. Patient is satting normally on room air. Awaiting placement to senior care facility. #2 acute kidney symptoms stage III chronic kidney disease: Baseline creatinine has been around 1.3, admission creatinine was 1.65 and patient has been on IV fluids. Creatinine came down to 1.26, improving. Plan as above. #4 right ureteral stone with obstruction: Status post cystoscopy, dilation and placement of right ureteral stent. Kidney function remained stable as above. #4 acute metabolic encephalopathy: In context of history of dementia, likely exacerbated by hypoxia and acute kidney injury. CT scan brain showed no acute findings. #5 other chronic medical problems: Stable, continue current medications as above. This note was generated with [employer] dictation software. It may contain incorrect words, spelling, and punctuation that were not noted in checking the note before signing.
--- NOTE | 2018-06-03 14:54 | PN_ITS ---
<Braden Gutierrez - Last Filed: 06/03/18 14:49> Patient Problems: Active and Suspected Problems (Last Reviewed 06/01/18 @ 07:27 by Nico Ordoñez MD) Ureteral calculus, right (Acute) RSV infection (Acute) JAVIER (acute kidney injury) (Acute) Acute metabolic encephalopathy (Acute) Subjective: Patient denies abdominal pain, dysuria. Patient reports this morning he felt some dizziness and lightheadedness when he is standing up and walking to use the bathroom. He has no palpitations. No chest pain. No flank pain. No fevers or chills overnight. - Physical Exam General: Alert, Oriented x3, Cooperative HEENT: Atraumatic, PERRLA, EOMI, Normocephalic Neck: Supple, No JVD, Negative Carotid Bruits Lungs: Clear to auscultation, Normal air movement Cardiovascular: Regular rate, No murmurs Abdomen: Bowel Sounds Present, Soft, Non Tender Extremities: No edema, Capillary Refill Less than 3 Seconds Skin: No rashes, No breakdown Musculoskeletal: No Tenderness to Palpation of Joints or Extremities Neurological: Cranial nerves II-XII grossly intact Psych/Mental Status: Normal Affect, Appropriate, Alert and oriented to time, place, person, mood and affect Vital Signs Temp Pulse Resp BP Pulse Ox 98.4 F 79 16 117/58 L 94 06/03/18 10:38 06/03/18 11:14 06/03/18 11:14 06/03/18 10:50 06/03/18 11:22 Oxygen Flow Rate (L/min) 2 Oxygen Delivery Method Room Air Weight: 175 lb 4.28 oz Body Mass Index (BMI) 087605.0 Finger Stick Blood Glucose 103 Orthostatic Vital Signs Start: 06/03/18 10:50 Freq: q24h Status: Active Protocol: Activity Type Activity Date Activity User E-Sign Co-Sign Detail Recorded Client Recorded Date Recorded By Document 06/03/18 10:50 T [id number] 06/03/18 10:57 KLT 06/03/18 10:50 Orthostatic Vitals Standing -Blood Pressure (90/60-120/80) 74/53 L -Extremity Use Left Arm -Pulse Rate (60-100) 152 H Sitting -Blood Pressure (90/60-120/80) 83/51 L -Extremity Use Left Arm -Pulse Rate (60-100) 91 Lying -Blood Pressure (90/60-120/80) 117/58 L -Extremity Use Left Arm -Pulse Rate (60-100) 75 06/03/18 10:57 Nursing Note by Troy Gil Dr. in room while orthostatic vs are being taken. He is aware of results. Initialized on 06/03/18 10:57 - END OF NOTE Intake and Output for Last 24 Hours 06/01/18 06/02/18 06/03/18 23:59 23:59 23:59 Intake Total 803 / 803 1558 / 1558 Output Total 3 / 3 Balance 803 / 803 1555 / 1555 Microbiology Past 72 Hours 05/31/18 13:50 Blood Culture - Preliminary Blood Culture (Wb) - Right Hand No growth in 48 hours. 05/31/18 13:35 Blood Culture - Preliminary Blood Culture (Wb) - Left Forearm No growth in 48 hours. 05/31/18 20:30 Respiratory Panel (PCR) - Final Mucosa - Nose RSV B 05/31/18 13:25 Influenza Types A,B Direct FA (VIVIANE) - Final Mucosa - Nasopharyngeal Laboratory Tests Past 24 Hrs 06/03/18 06/03/18 06:25 06:25 WBC 7.9 RBC 4.34 L Hgb 12.2 L Hct 39.8 L MCV 91.7 MCH 28.1 MCHC 30.7 L RDW 14.6 RDW Differential 47.6 H Plt Count 166 MPV 10.9 Sodium 143 Potassium 3.6 Chloride 109 H Carbon Dioxide 26.0 Anion Gap 8 BUN 18 Creatinine 1.30 Estim Creat Clear Calc 51.81 Est GFR (MDRD) Af Amer 68 Est GFR (MDRD) Non-Af 57 L BUN/Creatinine Ratio 13.8 Glucose 89 Calcium 8.5 Medical Necessity - Tobacco Use Smoking Status: Former smoker Assessment/Plan All Active Problems (Last Reviewed 06/01/18 @ 07:27 by Nico Ordoñez MD) Ureteral calculus, right (Acute) RSV infection (Acute) JAVIER (acute kidney injury) (Acute) Acute metabolic encephalopathy (Acute) 1. Acute RSV URI-continue supportive therapy prednisone times 5 days. Aerosols as needed. 2. Acute kidney injury, CKD stage III-secondary to dehydration and obstructing right ureteral stone. AK I resolved now. Maintenance fluids stopped. 3. Orthostatic hypotension-possibly secondary to increased vagal stimulation from stent, combined with dehydration. Bolus given. Will recheck. 4. Right distal ureteral obstructing stone-patient underwent cystoscopy and right stent placement on the fifth. He will follow-up as an outpatient with Dr. murrell. 5. Acute metabolic encephalopathy secondary to viral URI and AK I-improved. CT negative. 6. Hypertension-stable 7. Dementia-no behavioral disturbances. Continue Aricept. 8. Hypothyroidism-Synthroid 9. Depression-Lexapro 10. History of CVA-aspirin Plavix, Zuri 11. History of asthma-currently no wheezing or exacerbation. No shortness of breath. Continue supportive care as per #1. 12. Type 2 diabetes mellitus-sliding scale insulin, Accu-Cheks. DVT prophylaxis: Heparin Discharge planning: Patient is waiting for precertification to go to [facility]. This patient was seen by Braden Gutierrez PA-C under the supervision of Doctor Margarito. <George Pimentel E - Last Filed: 06/03/18 15:29> - Physical Exam Vital Signs Temp Pulse Resp BP Pulse Ox 98.0 F 85 16 108/49 L 95 06/03/18 15:05 06/03/18 15:05 06/03/18 15:05 06/03/18 15:05 06/03/18 15:05 Oxygen Flow Rate (L/min) 2 Oxygen Delivery Method Room Air Weight: 175 lb 4.28 oz Body Mass Index (BMI) 394732.0 Finger Stick Blood Glucose 103 Orthostatic Vital Signs Start: 06/03/18 10:50 Freq: q24h Status: Active Protocol: Activity Type Activity Date Activity User E-Sign Co-Sign Detail Recorded Client Recorded Date Recorded By Document 06/03/18 10:50 KLT [id number] 06/03/18 10:57 KLT 06/03/18 10:50 Orthostatic Vitals Standing -Blood Pressure (90/60-120/80) 74/53 L -Extremity Use Left Arm -Pulse Rate (60-100) 152 H Sitting -Blood Pressure (90/60-120/80) 83/51 L -Extremity Use Left Arm -Pulse Rate (60-100) 91 Lying -Blood Pressure (90/60-120/80) 117/58 L -Extremity Use Left Arm -Pulse Rate (60-100) 75 06/03/18 10:57 Nursing Note by Troy Gil Dr. in room while orthostatic vs are being taken. He is aware of results. Initialized on 06/03/18 10:57 - END OF NOTE Intake and Output for Last 24 Hours 06/01/18 06/02/18 06/03/18 23:59 23:59 23:59 Intake Total 803 / 803 1558 / 1558 300 / 300 Output Total 3 / 3 Balance 803 / 803 1555 / 1555 300 / 300 Microbiology Past 72 Hours 05/31/18 13:50 Blood Culture - Preliminary Blood Culture (Wb) - Right Hand No growth in 48 hours. 05/31/18 13:35 Blood Culture - Preliminary Blood Culture (Wb) - Left Forearm No growth in 48 hours. 05/31/18 20:30 Respiratory Panel (PCR) - Final Mucosa - Nose RSV B 05/31/18 13:25 Influenza Types A,B Direct FA (VIVIANE) - Final Mucosa - Nasopharyngeal Laboratory Tests Past 24 Hrs 06/03/18 06/03/18 06:25 06:25 WBC 7.9 RBC 4.34 L Hgb 12.2 L Hct 39.8 L MCV 91.7 MCH 28.1 MCHC 30.7 L RDW 14.6 RDW Differential 47.6 H Plt Count 166 MPV 10.9 Sodium 143 Potassium 3.6 Chloride 109 H Carbon Dioxide 26.0 Anion Gap 8 BUN 18 Creatinine 1.30 Estim Creat Clear Calc 51.81 Est GFR (MDRD) Af Amer 68 Est GFR (MDRD) Non-Af 57 L BUN/Creatinine Ratio 13.8 Glucose 89 Calcium 8.5 Assessment/Plan Hospitalist note: I am seeing this patient in conjunction with Patricia Huynh. I independently seen and examined the patient. Progress note above laboratory data reviewed and I agree with above treatment plan. Patient seen and examined today. He has no significant complaints. His orthostatic vitals were positive but he was barely symptomatic, complained of minimal dizziness. He received IV fluid bolus. - Physical Exam General: Alert, Cooperative, No apparent distress. HEENT: Atraumatic, PERRLA, EOMI. Neck: Supple, No JVD, Negative Carotid Bruits, Trachea Midline, Thyroid Normal. Lungs: Diminished breath sounds bilateral, otherwise clear, No rhonchi, No wheeze, No rales. Cardiovascular: Regular rate, Regular Rhythm, Normal S1, Normal S2, PMI Normal. Abdomen: Bowel Sounds Present, Soft, Non Tender, Non-Distended, No Hepato- splenomegaly. Extremities: No clubbing, No cyanosis, No edema Skin: No rashes, No breakdown Neurological: Neuro grossly intact Vital Signs are stable. Assessment and plan: #1 acute hypoxic respiratory insufficiency/URTI with RSV type B.: Pneumonia ruled out. D-dimer was negative. Respiratory panel for viruses came back positive for respiratory syncytial virus type B. Blood cultures showed no growth in 48 hours. Patient is satting normally on room air. Awaiting placement to [facility] facility. #2 acute kidney symptoms stage III chronic kidney disease: Baseline creatinine has been around 1.3, admission creatinine was 1.65 and patient has been on IV fluids. Creatinine came down to 1.26, improving. Plan as above. #4 right ureteral stone with obstruction: Status post cystoscopy, dilation and placement of right ureteral stent. Kidney function remained stable as above. #4 acute metabolic encephalopathy: In context of history of dementia, likely exacerbated by hypoxia and acute kidney injury. CT scan brain showed no acute findings. #5 other chronic medical problems: Stable, continue current medications as above. This note was generated with [employer] dictation software. It may contain incorrect words, spelling, and punctuation that were not noted in checking the note before signing.
--- NOTE | 2018-06-03 15:00 | TREXTCA.CO_ITS ---
- Diet 06/02/18 15:05 Diet: Regular Diet Is pt able to select menu?: No - Routine Orders/Code Status Suppository Type: Dulcolax 10mg Suppository Frequency: Daily PRN O2 Frequency: PRN Routine Lab Work: CBC - 5 days, BMP - 5 days Code Status: Full Code - Wound(s) urethra Dressing Change: no dsg - Therapies Physical Therapy: Eval and Treat Occupational Therapy: Eval and Treat - Problem/Diagnosis (1) Ureteral calculus, right Status: Acute Current Visit: Yes (2) RSV infection Status: Acute Current Visit: Yes (3) JAVIER (acute kidney injury) Status: Acute Current Visit: Yes (4) Acute metabolic encephalopathy Status: Acute Current Visit: Yes (5) Debility Status: Chronic Current Visit: No (6) Vascular dementia Status: Chronic Current Visit: No (7) Coronary artery disease Status: Chronic Current Visit: No (8) Hyperlipidemia Status: Chronic Current Visit: No (9) Hypothyroidism Status: Chronic Current Visit: No (10) Depression Status: Chronic Current Visit: No (11) Overactive bladder Status: Chronic Current Visit: No (12) History of CVA (cerebrovascular accident) Status: Chronic Current Visit: No (13) Atherosclerosis of [place] coronary artery of [place] heart without angina pectoris Status: Chronic Comment: MACIAS to LAD, aortocoronary left radial artery to obtuse marginal artery, SVG to PDA; Current Visit: No (14) GERD (gastroesophageal reflux disease) Status: Chronic Current Visit: No (15) S/P CABG x 3 Status: Chronic Comment: MACIAS to LAD, aortocoronary left radial artery to obtuse marginal artery, SVG to PDA Current Visit: No (16) DM2 (diabetes mellitus, type 2) Status: Chronic Current Visit: No (17) CKD (chronic kidney disease) stage 3, GFR 30-59 ml/min Status: Chronic Current Visit: No - Allergies/Procedures Done in Hospital Allergies/Adverse Reactions: Allergies iodine Allergy (Verified 05/31/18 11:49) Hives Penicillins Allergy (Verified 05/31/18 15:47) Rash Procedures: - - right ureteral stent placed. - Type of Care/Length of Stay Estimated LOS: Convalescent Care Less Than 30 days Type of Care Needed: Skilled Rehab Potential: Fair Prognosis: Fair - Additional Orders/Day of Discharge Day of Discharge: 06/03/18 - Follow Up Care Primary Care Physician: Daiana Andrew NP-C [Primary Care Provider] - Please follow up with your Primary Care Physician in: 1-2 weeks Please Follow Up With: Nico Ordoñez MD When: 2 weeks
--- NOTE | 2018-06-03 15:02 | DS.PCM_ITS ---
<Braden Gutierrez - Last Filed: 06/03/18 15:02> Discharge Date and Diagnosis - Problem List Patient Problems: Active and Suspected Problems (Last Reviewed 06/01/18 @ 07:27 by Nico Ordoñez MD) Ureteral calculus, right (Acute) RSV infection (Acute) JAVIER (acute kidney injury) (Acute) Acute metabolic encephalopathy (Acute) Date of Admission: 05/31/18 Date of Discharge: 06/03/18 - Primary Discharge Diagnosis Active and Suspected Problems (Last Reviewed 06/01/18 @ 07:27 by Nico Ordoñez MD) Ureteral calculus, right UVJ (Acute) RSV infection (Acute) JAVIER (acute kidney injury) (Acute) Acute metabolic encephalopathy (Acute) Orthostatic hypotension Hyperlipidemia Hypertension Dementia Hypothyroidism History of depression Past CVA GERD Mild intermittent asthma CAD with prior CABG Type 2 diabetes History of overactive bladder - Secondary Discharge Diagnosis Chronic Problems (Last Reviewed 06/01/18 @ 07:27 by Nico Ordoñez MD) Debility (Chronic) Vascular dementia (Chronic) Coronary artery disease (Chronic) Hyperlipidemia (Chronic) Hypothyroidism (Chronic) Depression (Chronic) Overactive bladder (Chronic) History of CVA (cerebrovascular accident) (Chronic) Atherosclerosis of douglas coronary artery of douglas heart without angina pectoris (Chronic) MACIAS to LAD, aortocoronary left radial artery to obtuse marginal artery, SVG to PDA; GERD (gastroesophageal reflux disease) (Chronic) History of angioplasty (Chronic 11/06/89) Angioplasty and stenting to 70% stenosis in proximal LAD, angioplasty and stenting to proximal diagonal LAD at bifurcation, and atherectomy and stenting to 80% stenosis in mid first diagonal artery in April 2011. 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) MACIAS to LAD, aortocoronary left radial artery to obtuse marginal artery, SVG to PDA H/O percutaneous transluminal coronary angioplasty (Chronic ~05/13/11) stent to diagonal 1 History of cardiac catheterization (Chronic ~03/2002) 03/28,06/28 DM2 (diabetes mellitus, type 2) (Chronic) CKD (chronic kidney disease) stage 3, GFR 30-59 ml/min (Chronic) Mild intermittent asthma (Chronic) Nephrolithiasis (Chronic) Hospital Course and Treatment Imaging Results: RAD/Chest 1 View (Portable) IMPRESSION: Status post CABG. Stable pleural parenchymal changes at the left lung base. CT/Abdomen/Pelvis without Cont IMPRESSION: Scarring and possible round atelectasis at the left lung base. Stable bilateral renal cysts worse on the right side. Complicated cyst in the lower pole of the right kidney. 4 mm calcific density at the right ureterovesical junction. CT/Brain/Head without Contrast IMPRESSION: Stable chronic involutional features and old infarcts of the brain. No acute intracranial process is evident. RAD/Chest PA and Lateral IMPRESSION: No acute cardiopulmonary process. Gaseous distention of bowel in the upper abdomen is nonspecific. Consults: Tiago - urology Operations: None Procedures: None Summary of Care Provided: Hospital course: The patient is a 78 year old M with extensive past medical history as above, who presents to emergency room with hypoxia, confusion, cough. He was initially admitted with suspicion for pneumonia despite no infiltrate on chest x-ray. He was started on Levaquin and given aerosol therapy. He also appeared to have an acute kidney injury with elevated BUN and creatinine. He was confused which was felt to be metabolic encephalopathy secondary to underlying infection and acute kidney injury. CT of the brain was negative. CT of the abdomen was obtained which revealed a 4 mm calcific density at the right UVJ. Urology was consulted. He was taken for a cystoscopy and a right ureteral stent was placed. BNP was negative, urinalysis was negative for infection, troponin was negative, d-dimer was negative. Kidney function improved. His confusion resolved. A respiratory panel was taken which revealed RSV infection. Antibiotics were discontinued he was placed on prednisone, aerosols were continued. His breathing improved. He had no further shortness of breath at the time of discharge. The day of discharge he complained of some lightheadedness when standing. He did have positive orthostatic vitals. He was given an IV fluid bolus. As his resting blood pressure is somewhat elevated I deferred adding an agent such as midodrine at this time. Patient remained significantly weak despite improvement in his underlying conditions, and his did not feel comfortable taking him home and caring for him. Patient was discharged to intermediate in stable condition. He will need to follow-up with urology in 2 weeks, and with his PCP in 1-2 weeks. This patient was seen by Braden Gutierrez PA-C under the supervision of Doctor Margarito. [] Patient Problems: Active and Suspected Problems (Last Reviewed 06/01/18 @ 07:27 by Nico Ordoñez MD) Ureteral calculus, right (Acute) RSV infection (Acute) JAVIER (acute kidney injury) (Acute) Acute metabolic encephalopathy (Acute) - Physical Exam General: Alert, Oriented x3, Cooperative HEENT: Atraumatic, PERRLA, EOMI, Normocephalic Neck: Supple, No JVD, Negative Carotid Bruits Lungs: Clear to auscultation, Normal air movement Cardiovascular: Regular rate, No murmurs Abdomen: Bowel Sounds Present, Soft, Non Tender Extremities: No edema, Capillary Refill Less than 3 Seconds Skin: No rashes, No breakdown Musculoskeletal: No Tenderness to Palpation of Joints or Extremities Neurological: Cranial nerves II-XII grossly intact Psych/Mental Status: Normal Affect, Appropriate, Alert and oriented to time, place, person, mood and affect Vital Signs Temp Pulse Resp BP Pulse Ox 98.4 F 79 16 117/58 L 94 06/03/18 10:38 06/03/18 11:14 06/03/18 11:14 06/03/18 10:50 06/03/18 11:22 Oxygen Flow Rate (L/min) 2 Oxygen Delivery Method Room Air Weight: 175 lb 4.28 oz Body Mass Index (BMI) 769564.0 Finger Stick Blood Glucose 103 Orthostatic Vital Signs Start: 06/03/18 10:50 Freq: q24h Status: Active Protocol: Activity Type Activity Date Activity User E-Sign Co-Sign Detail Recorded Client Recorded Date Recorded By Document 06/03/18 10:50 KLT [id number] 06/03/18 10:57 KLT 06/03/18 10:50 Orthostatic Vitals Standing -Blood Pressure (90/60-120/80) 74/53 L -Extremity Use Left Arm -Pulse Rate (60-100) 152 H Sitting -Blood Pressure (90/60-120/80) 83/51 L -Extremity Use Left Arm -Pulse Rate (60-100) 91 Lying -Blood Pressure (90/60-120/80) 117/58 L -Extremity Use Left Arm -Pulse Rate (60-100) 75 06/03/18 10:57 Nursing Note by Troy Gil Dr. in room while orthostatic vs are being taken. He is aware of results. Initialized on 06/03/18 10:57 - END OF NOTE Intake and Output for Last 24 Hours 06/01/18 06/02/18 06/03/18 23:59 23:59 23:59 Intake Total 803 / 803 1558 / 1558 Output Total 3 / 3 Balance 803 / 803 1555 / 1555 Microbiology Past 72 Hours 05/31/18 13:50 Blood Culture - Preliminary Blood Culture (Wb) - Right Hand No growth in 48 hours. 05/31/18 13:35 Blood Culture - Preliminary Blood Culture (Wb) - Left Forearm No growth in 48 hours. 05/31/18 20:30 Respiratory Panel (PCR) - Final Mucosa - Nose RSV B 05/31/18 13:25 Influenza Types A,B Direct FA (VIVIANE) - Final Mucosa - Nasopharyngeal Laboratory Tests Past 24 Hrs 06/03/18 06/03/18 06:25 06:25 WBC 7.9 RBC 4.34 L Hgb 12.2 L Hct 39.8 L MCV 91.7 MCH 28.1 MCHC 30.7 L RDW 14.6 RDW Differential 47.6 H Plt Count 166 MPV 10.9 Sodium 143 Potassium 3.6 Chloride 109 H Carbon Dioxide 26.0 Anion Gap 8 BUN 18 Creatinine 1.30 Estim Creat Clear Calc 51.81 Est GFR (MDRD) Af Amer 68 Est GFR (MDRD) Non-Af 57 L BUN/Creatinine Ratio 13.8 Glucose 89 Calcium 8.5 Discharge Diet: Low fat/ Low Cholesterol, 1800 Calorie Control Diet, 2000 mg Sod ium Diet Discharge Activity: Return to Normal Activity Home Medications: Medications to take at Discharge Aspirin E.C. [Ecotrin] 81 mg PO DAILY@0800 09/15/13 Escitalopram Oxalate [Lexapro] 10 mg PO DAILY 09/15/13 Pioglitazone [Actos] 30 mg PO DAILY 09/15/13 Donepezil HCl [Aricept] 10 mg PO QHS 02/27/16 docusate sodium 100 mg capsule 100 mg PO DAILY PRN cap 02/24/18 Clopidogrel Bisulfate [Plavix] 75 mg PO DAILY 04/30/18 Ezetimibe [Zetia] 10 mg PO DAILY 04/30/18 Ramipril 5 mg PO DAILY 05/31/18 Acetaminophen [Tylenol Tablet] 650 mg PO Q6H PRN PRN tablet 06/03/18 Albuterol Aerosols [Ventolin Aerosols] 2.5 mg INHALATION Q2H PRN PRN vial.neb. 06/03/18 Glucerna Shake 120 ml PO 4X/DAY liquid 06/03/18 Ipratropium/Albuterol Sulfate [Duoneb] 3 ml INHALATION Q6H PRN PRN ampul.neb 06/03/18 Magnesium Hydroxide [Milk Of Magnesia] 30 ml PO DAILY PRN PRN udc 06/03/18 Psyllium [Metamucil] 1 packet PO DAILY PRN PRN packet 06/03/18 predniSONE tablet 40 mg PO DAILY@0800 #4 tablet 06/03/18 Primary Care Physician: Daiana Andrew NP-C [Primary Care Provider] - Please follow up with your Primary Care Physician in: 1-2 weeks Please Follow Up With: Nico Ordoñez MD When: 2 weeks Disposition: Intermediate facility Minutes spent on discharge:: 35 Patient Condition:: Stable Medical Necessity - Tobacco Use Smoking Status: Former smoker Meaningful Use Info Meaningful Use Diagnoses (Choose all that apply): None applicable <MargaritoGeorge Sarahi - Last Filed: 06/03/18 15:21> Discharge Date and Diagnosis - Primary Discharge Diagnosis Active and Suspected Problems (Last Reviewed 06/01/18 @ 07:27 by Nico Ordoñez MD) Ureteral calculus, right (Acute) RSV infection (Acute) JAVIER (acute kidney injury) (Acute) Acute metabolic encephalopathy (Acute) - Secondary Discharge Diagnosis Chronic Problems (Last Reviewed 06/01/18 @ 07:27 by Nico Ordoñez MD) Debility (Chronic) Vascular dementia (Chronic) Coronary artery disease (Chronic) Hyperlipidemia (Chronic) Hypothyroidism (Chronic) Depression (Chronic) Overactive bladder (Chronic) History of CVA (cerebrovascular accident) (Chronic) Atherosclerosis of douglas coronary artery of douglas heart without angina pectoris (Chronic) MACIAS to LAD, aortocoronary left radial artery to obtuse marginal artery, SVG to PDA; GERD (gastroesophageal reflux disease) (Chronic) History of angioplasty (Chronic 11/06/89) Angioplasty and stenting to 70% stenosis in proximal LAD, angioplasty and stenting to proximal diagonal LAD at bifurcation, and atherectomy and stentin g to 80% stenosis in mid first diagonal artery in April 2011. 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) MACIAS to LAD, aortocoronary left radial artery to obtuse marginal artery, SVG to PDA H/O percutaneous transluminal coronary angioplasty (Chronic ~05/13/11) stent to diagonal 1 History of cardiac catheterization (Chronic ~03/2002) 03/28,06/28 DM2 (diabetes mellitus, type 2) (Chronic) CKD (chronic kidney disease) stage 3, GFR 30-59 ml/min (Chronic) Mild intermittent asthma (Chronic) Nephrolithiasis (Chronic) Hospital Course and Treatment Summary of Care Provided: Hospitalist note: Discharge summary above reviewed and I agree with above discharge and treatment plan. Patient was admitted for shortness of breath, confusion and back pain and he was found to have acute hypoxic respiratory insufficiency/hypoxia attributed to upper respiratory tract infection secondary to respiratory syncytial virus type B. Chest x-ray showed no acute findings. Pneumonia ruled out. His d- dimer was negative. His blood culture showed no growth in 48 hours. Patient was treated with bronchodilators and oxygen and he did well. He was able to come off oxygen and pulse ox maintained on room air. He was found to have acute kidney injury on top of stage III chronic kidney disease that was treated with IV fluids. His baseline creatinine has been around 1.3 and on admission, it was 1.65. With IV fluids, creatinine came down to 1.26, improved. After admission, patient complained of right flank pain, CT scan done and revealed 4 mm right ureterovesical junction stone. Urology consulted and he underwent cystoscopy, dilation and placement of right ureteral stent. Kidney function remained stable. On the day of discharge, his orthostatic vitals were positive and his blood pressure dropped and he had minimal dizziness. He received bolus of IV fluids. His resting blood pressure was actually slightly elevated. Patient was seen by PT OT and because his cannot take care of him at home, will recommended placement to intermediate facility. Patient discharged to intermediate facility in a stable medical condition, discharged on his [facility] home medication without any changes, recommended follow-up with PCP in 1-2 weeks and follow-up with urology in 2 weeks.. - Physical Exam General: Alert, Cooperative, No apparent distress. HEENT: Atraumatic, PERRLA, EOMI. Neck: Supple, No JVD, Negative Carotid Bruits, Trachea Midline, Thyroid Normal. Lungs: Diminished breath sounds bilateral, bilateral rhonchi, No wheeze, No rales. Cardiovascular: Regular rate, Regular Rhythm, Normal S1, Normal S2, PMI Normal. Abdomen: Bowel Sounds Present, Soft, Non Tender, Non-Distended, No Hepato- splenomegaly. Extremities: No clubbing, No cyanosis, No edema Skin: No rashes, No breakdown Neurological: Neuro grossly intact Vital Signs are stable. This note was generated with [employer] software. It may contain incorrect words, spelling, and punctuation that were not noted in checking the note before signing. - Physical Exam Vital Signs Temp Pulse Resp BP Pulse Ox 98.0 F 85 16 108/49 L 95 06/03/18 15:05 06/03/18 15:05 06/03/18 15:05 06/03/18 15:05 06/03/18 15:05 Oxygen Flow Rate (L/min) 2 Oxygen Delivery Method Room Air Weight: 175 lb 4.28 oz Body Mass Index (BMI) 783840.0 Finger Stick Blood Glucose 103 Orthostatic Vital Signs Start: 06/03/18 10:50 Freq: q24h Status: Active Protocol: Activity Type Activity Date Activity User E-Sign Co-Sign Detail Recorded Client Recorded Date Recorded By Document 06/03/18 10:50 KLT [id number] 06/03/18 10:57 KLT 06/03/18 10:50 Orthostatic Vitals Standing -Blood Pressure (90/60-120/80) 74/53 L -Extremity Use Left Arm -Pulse Rate (60-100) 152 H Sitting -Blood Pressure (90/60-120/80) 83/51 L -Extremity Use Left Arm -Pulse Rate (60-100) 91 Lying -Blood Pressure (90/60-120/80) 117/58 L -Extremity Use Left Arm -Pulse Rate (60-100) 75 06/03/18 10:57 Nursing Note by Troy Gil Dr. in room while orthostatic vs are being taken. He is aware of results. Initialized on 06/03/18 10:57 - END OF NOTE Intake and Output for Last 24 Hours 06/01/18 06/02/18 06/03/18 23:59 23:59 23:59 Intake Total 803 / 803 1558 / 1558 300 / 300 Output Total / Balance 803 / 803 1555 / 1555 300 / 300 Microbiology Past 72 Hours 05/31/18 13:50 Blood Culture - Preliminary Blood Culture (Wb) - Right Hand No growth in 48 hours. 05/31/18 13:35 Blood Culture - Preliminary Blood Culture (Wb) - Left Forearm No growth in 48 hours. 05/31/18 20:30 Respiratory Panel (PCR) - Final Mucosa - Nose RSV B 05/31/18 13:25 Influenza Types A,B Direct FA (VIVIANE) - Final Mucosa - Nasopharyngeal Laboratory Tests Past 24 Hrs 06/03/18 06/03/18 06:25 06:25 WBC 7.9 RBC 4.34 L Hgb 12.2 L Hct 39.8 L MCV 91.7 MCH 28.1 MCHC 30.7 L RDW 14.6 RDW Differential 47.6 H Plt Count 166 MPV 10.9 Sodium 143 Potassium 3.6 Chloride 109 H Carbon Dioxide 26.0 Anion Gap 8 BUN 18 Creatinine 1.30 Estim Creat Clear Calc 51.81 Est GFR (MDRD) Af Amer 68 Est GFR (MDRD) Non-Af 57 L BUN/Creatinine Ratio 13.8 Glucose 89 Calcium 8.5 Disposition: Intermediate facility Minutes spent on discharge:: 31 Patient Condition:: Stable Meaningful Use Info Meaningful Use Diagnoses (Choose all that apply): None applicable Code Visit Inpatient E&M: 62534 Disch Hosp
--- NOTE | 2018-06-03 15:09 | CASEMGMT ---
Patient was approved to go to TCU. SUSAN let Braden MACKENZIE know as well as RN, and charge account clerk. SW also let patient's know. Patient will be going to TCU today. Plan: [facility] TCU under skilled level of care. Tara NIÑO MSW
== END 2018-06-03 16:35 | disposition skilled nursing facility (03) | DRG 660 ==
LOC: ED 13:22 → PCU 16:06
PROVIDERS: Nurse Practitioner Family; Urology; Admitting Provider Internal Medicine; Emergency Provider Emergency Medicine; Family Provider Nurse Practitioner; PCP Nurse Practitioner; Visit Provider Hospitalist
PROC: 0T768DZ Dilation of Right Ureter with Intraluminal Device, Via Natural or Artificial Opening Endoscopic (ICD-10-PCS; principal; 2018-06-01 11:50)
DX: N20.1 Calculus of ureter (principal); N17.9 Acute kidney failure, unspecified; J06.9 Acute upper respiratory infection, unspecified; R09.02 Hypoxemia; E03.9 Hypothyroidism, unspecified; I25.10 Atherosclerotic heart disease of native coronary artery without angina pectoris; E11.9 Type 2 diabetes mellitus without complications; F01.50 Vascular dementia, unspecified severity, without behavioral disturbance, psychotic disturbance, mood disturbance, and anxiety; E78.5 Hyperlipidemia, unspecified; B97.4 Respiratory syncytial virus as the cause of diseases classified elsewhere; J45.20 Mild intermittent asthma, uncomplicated; F32.9 Major depressive disorder, single episode, unspecified; I12.9 Hypertensive chronic kidney disease with stage 1 through stage 4 chronic kidney disease, or unspecified chronic kidney disease; N18.3 Chronic kidney disease, stage 3 (moderate); Z95.5 Presence of coronary angioplasty implant and graft; Z86.73 Personal history of transient ischemic attack (TIA), and cerebral infarction without residual deficits; Z95.1 Presence of aortocoronary bypass graft; Z87.891 Personal history of nicotine dependence
CPT/HCPCS: 36415; 70450; 71045; 71046; 74176; 80048; 80053; 81001; 82962; 83880; 84484; 85025; 85027; 85379; 87040; 87633; 87804; 93005; 94640; 97162; 97165; 97530; 97535; 99284; J7030; J7040; A4216; C1769

== ENCOUNTER 2018-06-03 16:51 | Inpatient (IN) | payer MEDICARE, SELFPAY ==
[2018-06-01 11:08] VITALS: BMI 269539.0
[2018-06-03 16:57] VITALS: BP 103/77; PULSE 89; RESP 18; TEMP 37.3; O2SAT 92
[2018-06-03 18:00] VITALS: BMI 25.5
[2018-06-03 18:06] VITALS: BMI 25.6
--- NOTE | 2018-06-03 21:39 | PCM.HP.STD ---
Problem List (1) Encephalopathy Status: Acute (2) Community acquired pneumonia Status: Acute (3) Stroke Status: Chronic (4) Diabetes mellitus Status: Chronic (5) Chronic kidney disease Status: Chronic (6) Asthma Status: Chronic (7) Vascular dementia Status: Chronic (8) Coronary artery disease Status: Chronic (9) Hyperlipidemia Status: Chronic (10) Hypothyroidism Status: Chronic (11) Overactive bladder Status: Chronic (12) Ureteral calculus, right Status: Acute (13) RSV infection Status: Acute (14) JAVIER (acute kidney injury) Status: Acute (15) GERD (gastroesophageal reflux disease) Status: Chronic History of Present Illness Date of Admission: 06/03/18 Chief Complaint: Here for rehabilitation, strengthening, prior to discharge home with spouse. The patient is a 78 year old Male with below past medical history presented to [facility] Emergency Department 05/31/2018 with back pain, shortness of breath, confusion, hypoxia. 05/31/2018 EKG sinus bradycardia, otherwise normal. 05/31/2018 CT abdomen/pelvis scarring, round atelectasis left lung base, stable bilateral renal cysts, worse on right side, right complex renal cyst. 4mm calcific density right ureterovesical junction. Shortness of breath, productive cough. Start treatment for pneumonia. 05/31/2018 Admit to Hospital. IV Fluids. IV Levaquin for community acquired pneumonia. Order Respiratory panel. Consult Urology for ureteral stone. 05/31/2018 CT brain chronic involutional changes of brain, old infarcts of brain. 06/01/2018 Dr. Ordoñez performed cystoscopy, dilatation of right ureter, right stent placement. 06/01/2018 Chest X-ray negative. Acute kidney injury treated with IV fluids. BNP negative, UA negative, Troponin negative, D-dimer negative. Kidney function improved. Confusion resolved. Respiratory panel + RSV B infection. Antibiotics stopped, prednisone, aerosols continued. IV Fluids given for orthostatic hypotension, midodrine avoided due to supine hypertension. 06/03/2018 Admit to TCU with debility, here for rehabilitation, strengthening, prior to discharge home with spouse. Past Medical History Past Medical History (Chronic Problems): Chronic Problems (Last Reviewed 06/01/18 @ 07:27 by Nico Ordoñez MD) Debility (Chronic) Vascular dementia (Chronic) Coronary artery disease (Chronic) Hyperlipidemia (Chronic) Hypothyroidism (Chronic) Depression (Chronic) Overactive bladder (Chronic) Stroke (Chronic) Diabetes mellitus (Chronic) Chronic kidney disease (Chronic) Asthma (Chronic) History of CVA (cerebrovascular accident) (Chronic) Atherosclerosis of [place] coronary artery of [place] heart without angina pectoris (Chronic) MACIAS to LAD, aortocoronary left radial artery to obtuse marginal artery, SVG to PDA; GERD (gastroesophageal reflux disease) (Chronic) History of angioplasty (Chronic 11/06/89) Angioplasty and stenting to 70% stenosis in proximal LAD, angioplasty and stenting to proximal diagonal LAD at bifurcation, and atherectomy and stenting to 80% stenosis in mid first diagonal artery in April 2011. 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) MACIAS to LAD, aortocoronary left radial artery to obtuse marginal artery, SVG to PDA H/O percutaneous transluminal coronary angioplasty (Chronic ~05/13/11) stent to diagonal 1 History of cardiac catheterization (Chronic ~03/2002) 03/28,06/28 DM2 (diabetes mellitus, type 2) (Chronic) CKD (chronic kidney disease) stage 3, GFR 30-59 ml/min (Chronic) Mild intermittent asthma (Chronic) Nephrolithiasis (Chronic) Medical History: Medical History (Last Reviewed 06/01/18 @ 07:27 by Nico Ordoñez MD) Atherosclerosis of [place] coronary artery of [place] heart without angina pectoris (Chronic) I25.10 MACIAS to LAD, aortocoronary left radial artery to obtuse marginal artery, SVG to PDA; GERD (gastroesophageal reflux disease) (Chronic) K21.9 DM2 (diabetes mellitus, type 2) (Chronic) E11.9 CKD (chronic kidney disease) stage 3, GFR 30-59 ml/min (Chronic) Mild intermittent asthma (Chronic) J45.20 Nephrolithiasis (Chronic) History of Gerard's esophagus Z87.19 History of asthma Z87.09 History of irritable bowel syndrome Z87.19 Hypothyroidism E03.9 Allergies iodine Allergy (Verified 05/31/18 11:49) Hives Penicillins Allergy (Verified 05/31/18 15:47) Rash Home Medications: Ambulatory Orders Medication Instructions Recorded Aspirin E.C. [Ecotrin] 81 mg PO DAILY@0800 09/15/13 Escitalopram Oxalate [Lexapro] 10 mg PO DAILY 05/22/14 Pioglitazone [Actos] 30 mg PO DAILY 09/15/13 Donepezil HCl [Aricept] 10 mg PO QHS 02/27/16 docusate sodium 100 mg capsule 100 mg PO DAILY PRN cap 02/24/18 Clopidogrel Bisulfate [Plavix] 75 mg PO DAILY 04/30/18 Ezetimibe [Zetia] 10 mg PO DAILY 04/30/18 Ramipril 5 mg PO DAILY 05/31/18 Acetaminophen [Tylenol Tablet] 650 mg PO Q6H PRN PRN tablet 06/03/18 Albuterol Aerosols [Ventolin 2.5 mg INHALATION Q2H PRN PRN 06/03/18 Aerosols] vial.neb. Glucerna Shake 120 ml PO 4X/DAY 06/03/18 Ipratropium/Albuterol Sulfate 3 ml INHALATION Q6H PRN PRN 06/03/18 [Duoneb] ampul.neb Magnesium Hydroxide [Milk Of 30 ml PO DAILY PRN PRN udc 06/03/18 Magnesia] Psyllium [Metamucil] 1 packet PO DAILY PRN PRN packet 06/03/18 predniSONE tablet 40 mg PO DAILY@0800 06/03/18 Surgical History: Surgical History (Last Reviewed 06/01/18 @ 07:27 by Nico Ordoñez MD) History of angioplasty (Chronic) Onset Date: 11/06/89 Z98.62 Angioplasty and stenting to 70% stenosis in proximal LAD, angioplasty and stenting to proximal diagonal LAD at bifurcation, and atherectomy and stenting to 80% stenosis in mid first diagonal artery in April 2011. S/P CABG x 3 (Chronic) Onset Date: 05/09/02 Z95.1 MACIAS to LAD, aortocoronary left radial artery to obtuse marginal artery, SVG to PDA H/O percutaneous transluminal coronary angioplasty (Chronic) Onset Date: ~05/13/11 Z98.61 stent to diagonal 1 History of cardiac catheterization (Chronic) Onset Date: ~03/2002 Z98.890 03/28,06/28 History of colon resection Onset Date: 09/15/13 Z90.49 History of hemorrhoidectomy Z98.890 History of right inguinal hernia repair Z98.890, Z87.19 History of squamous cell carcinoma excision Onset Date: 10/23/11 Z98.890, Z85.9 left restorationist with rhomboid transposition skin flap reconstruction History of tonsillectomy Z90.89 History of ureter stent Onset Date: ~07/2008 Surgical History: angioplasty, colectomy, coronary bypass surgery - x 3., herniorrhaphy - Hiatal., tonsillectomy, - - Ureteral stent, hemorrhoidectomy. Psychiatric History: Depression Lives: Spouse/ Significant Other Smoking Status: Former smoker Tobacco Use: Non-smoker Alcohol: None Drugs: None - *Family History Maternal Family History: Family History (Last Reviewed 06/01/18 @ 07:27 by Nico Ordoñez MD) Father CVA (cerebral vascular accident) Brother Heart disease History Items: - - Denies maternal cardiac history Paternal Family History: Family History (Last Reviewed 06/01/18 @ 07:27 by Nico Ordoñez MD) Father CVA (cerebral vascular accident) Brother Heart disease History Items: - - No stroke Review of Systems Constitutional: Denies: Chills, Fever, Weight Change HEENT: Denies: Head Aches, Sinus Congestion, Sinus Drainage Cardiovascular: Denies: Chest Pain, Palpitations Respiratory: Denies: Cough, Shortness of breath at rest, Sputum production Gastrointestinal: Denies: Abdominal Pain, Nausea, Vomiting Genitourinary: Denies: Dysuria Musculoskeletal: Denies: Joint Pain, Joint Tenderness Skin: Denies: Rash, Wounds Neurological: Denies: Numbness, Tingling, Focal weakness Psychiatric: Denies: Anxiety, Depression, Homicidal Ideations, Suicidal Ideations Hematologic/ Lymphatic: Denies: Easy Bruising, Easy Bleeding VTE Information - Inpt Only VTE Present on Admission: No VTE Mechan Device Prophylaxis: Knee High ANNA MARIE Hose VTE Pharm Prophylaxis ordered?: Yes Patient Problems: Active and Suspected Problems (Last Reviewed 06/01/18 @ 07:27 by Nico Ordoñez MD) Encephalopathy (Acute) Community acquired pneumonia (Acute) - Physical Exam General: Alert, Oriented x3, Cooperative HEENT: Atraumatic, PERRLA, EOMI, Normocephalic Neck: Supple, No JVD, Negative Carotid Bruits Lungs: Clear to auscultation, Normal air movement Cardiovascular: Regular rate, No murmurs Abdomen: Bowel Sounds Present, Soft, Non Tender Extremities: No edema, Capillary Refill Less than 3 Seconds Skin: No rashes, No breakdown Musculoskeletal: No Tenderness to Palpation of Joints or Extremities Neurological: Cranial nerves II-XII grossly intact Psych/Mental Status: Normal Affect, Appropriate Vital Signs Temp Pulse Resp BP Pulse Ox 99.2 F H 89 18 103/77 92 06/03/18 16:57 06/03/18 16:57 06/03/18 16:57 06/03/18 16:57 06/03/18 16:57 Oxygen Delivery Method Room Air Weight: 83.2 kg Body Mass Index (BMI) 25.5 Finger Stick Blood Glucose 103 Intake and Output for Last 24 Hours 06/01/18 06/02/18 06/03/18 23:59 23:59 23:59 Intake Total 240 / 240 Balance 240 / 240 Assessment/Plan All Active Problems (Last Reviewed 06/01/18 @ 07:27 by Nico Ordoñez MD) Ureteral calculus, right (Acute) RSV infection (Acute) JAVIER (acute kidney injury) (Acute) Acute metabolic encephalopathy (Acute) Encephalopathy (Acute) Community acquired pneumonia (Acute) 78 year old male with below past medical history hospitalized for acute delirium secondary to RSV B infection, complicated by right ureteral stone, acute kidney injury, admitted to TCU with debility, here for rehabilitation, strengthening, prior to discharge home with spouse. Debility - PT/OT. Pain - Tylenol 1000MG Q6H PRN mild pain. Bowel - Miralax 17GM daily, Senna/colace 1 tablet BID, Dulcolax 10MG daily PRN. Pneumonia vaccination - Administer Prevnar 13 and/or Pneumovax 23 as necessary. DVT prophylaxis - Lovenox 40MG SC daily. RSV B - Albuterol 2.5MG Q2H PRN, Duoneb 3ML Q6H PRN, Prednisone taper. Coronary Artery Disease - Ramipril 5MG daily, Aspirin 81MG daily, Plavix 75MG daily, consider changing Plavix to Xarelto 2.5MG twice daily to further decrease risk of major cardiovascular event. Vascular Dementia - Donepezil 10MG QHS. Depression - Lexapro 10MG daily, resident doing well with chronic shelter use, GDR clinically contraindicated. Hyperlipidemia - Zetia 10MG daily. Nutrition - Glucerna 120ML 4x/day. Type 2 Diabetes Mellitus - Pioglitazone 30MG daily. Hypertension - Ramipril 5MG daily. Right ureteral stone - s/p ureteral stent, follow up with Dr. Ordoñez as outpatient.
--- NOTE | 2018-06-03 21:46 | HP.PCM_ITS ---
Problem List (1) Encephalopathy Status: Acute (2) Community acquired pneumonia Status: Acute (3) Stroke Status: Chronic (4) Diabetes mellitus Status: Chronic (5) Chronic kidney disease Status: Chronic (6) Asthma Status: Chronic (7) Vascular dementia Status: Chronic (8) Coronary artery disease Status: Chronic (9) Hyperlipidemia Status: Chronic (10) Hypothyroidism Status: Chronic (11) Overactive bladder Status: Chronic (12) Ureteral calculus, right Status: Acute (13) RSV infection Status: Acute (14) JAVIER (acute kidney injury) Status: Acute (15) GERD (gastroesophageal reflux disease) Status: Chronic History of Present Illness Date of Admission: 06/03/18 Chief Complaint: Here for rehabilitation, strengthening, prior to discharge home with spouse. The patient is a 78 year old Male with below past medical history presented to [facility] Emergency Department 05/31/2018 with back pain, shortness of breath, confusion, hypoxia. 05/31/2018 EKG sinus bradycardia, otherwise normal. 05/31/2018 CT abdomen/pelvis scarring, round atelectasis left lung base, stable bilateral renal cysts, worse on right side, right complex renal cyst. 4mm calcific density right ureterovesical junction. Shortness of breath, productive cough. Start treatment for pneumonia. 05/31/2018 Admit to Hospital. IV Fluids. IV Levaquin for community acquired pneumonia. Order Respiratory panel. Consult Urology for ureteral stone. 05/31/2018 CT brain chronic involutional changes of brain, old infarcts of brain. 06/01/2018 Dr. Ordoñez performed cystoscopy, dilatation of right ureter, right stent placement. 06/01/2018 Chest X-ray negative. Acute kidney injury treated with IV fluids. BNP negative, UA negative, Troponin negative, D-dimer negative. Kidney function improved. Confusion resolved. Respiratory panel + RSV B infection. Antibiotics stopped, prednisone, aerosols continued. IV Fluids given for orthostatic hypotension, midodrine avoided due to supine hypertension. 06/03/2018 Admit to TCU with debility, here for rehabilitation, strengthening, prior to discharge home with spouse. Past Medical History Past Medical History (Chronic Problems): Chronic Problems (Last Reviewed 06/01/18 @ 07:27 by Nico Ordoñez MD) Debility (Chronic) Vascular dementia (Chronic) Coronary artery disease (Chronic) Hyperlipidemia (Chronic) Hypothyroidism (Chronic) Depression (Chronic) Overactive bladder (Chronic) Stroke (Chronic) Diabetes mellitus (Chronic) Chronic kidney disease (Chronic) Asthma (Chronic) History of CVA (cerebrovascular accident) (Chronic) Atherosclerosis of [place] coronary artery of [place] heart without angina pectoris (Chronic) MACIAS to LAD, aortocoronary left radial artery to obtuse marginal artery, SVG to PDA; GERD (gastroesophageal reflux disease) (Chronic) History of angioplasty (Chronic 11/06/89) Angioplasty and stenting to 70% stenosis in proximal LAD, angioplasty and stenting to proximal diagonal LAD at bifurcation, and atherectomy and stenting to 80% stenosis in mid first diagonal artery in April 2011. 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) MACIAS to LAD, aortocoronary left radial artery to obtuse marginal artery, SVG to PDA H/O percutaneous transluminal coronary angioplasty (Chronic ~05/13/11) stent to diagonal 1 History of cardiac catheterization (Chronic ~03/2002) 03/28,06/28 DM2 (diabetes mellitus, type 2) (Chronic) CKD (chronic kidney disease) stage 3, GFR 30-59 ml/min (Chronic) Mild intermittent asthma (Chronic) Nephrolithiasis (Chronic) Medical History: Medical History (Last Reviewed 06/01/18 @ 07:27 by Nico Ordoñez MD) Atherosclerosis of [place] coronary artery of [place] heart without angina pectoris (Chronic) I25.10 MACIAS to LAD, aortocoronary left radial artery to obtuse marginal artery, SVG to PDA; GERD (gastroesophageal reflux disease) (Chronic) K21.9 DM2 (diabetes mellitus, type 2) (Chronic) E11.9 CKD (chronic kidney disease) stage 3, GFR 30-59 ml/min (Chronic) Mild intermittent asthma (Chronic) J45.20 Nephrolithiasis (Chronic) History of Gerard's esophagus Z87.19 History of asthma Z87.09 History of irritable bowel syndrome Z87.19 Hypothyroidism E03.9 Allergies iodine Allergy (Verified 05/31/18 11:49) Hives Penicillins Allergy (Verified 05/31/18 15:47) Rash Home Medications: Ambulatory Orders Medication Instructions Recorded Aspirin E.C. [Ecotrin] 81 mg PO DAILY@0800 09/15/13 Escitalopram Oxalate [Lexapro] 10 mg PO DAILY 05/22/14 Pioglitazone [Actos] 30 mg PO DAILY 09/15/13 Donepezil HCl [Aricept] 10 mg PO QHS 02/27/16 docusate sodium 100 mg capsule 100 mg PO DAILY PRN cap 02/24/18 Clopidogrel Bisulfate [Plavix] 75 mg PO DAILY 04/30/18 Ezetimibe [Zetia] 10 mg PO DAILY 04/30/18 Ramipril 5 mg PO DAILY 05/31/18 Acetaminophen [Tylenol Tablet] 650 mg PO Q6H PRN PRN tablet 06/03/18 Albuterol Aerosols [Ventolin 2.5 mg INHALATION Q2H PRN PRN 06/03/18 Aerosols] vial.neb. Glucerna Shake 120 ml PO 4X/DAY 06/03/18 Ipratropium/Albuterol Sulfate 3 ml INHALATION Q6H PRN PRN 06/03/18 [Duoneb] ampul.neb Magnesium Hydroxide [Milk Of 30 ml PO DAILY PRN PRN udc 06/03/18 Magnesia] Psyllium [Metamucil] 1 packet PO DAILY PRN PRN packet 06/03/18 predniSONE tablet 40 mg PO DAILY@0800 06/03/18 Surgical History: Surgical History (Last Reviewed 06/01/18 @ 07:27 by Nico Ordoñez MD) History of angioplasty (Chronic) Onset Date: 11/06/89 Z98.62 Angioplasty and stenting to 70% stenosis in proximal LAD, angioplasty and stenting to proximal diagonal LAD at bifurcation, and atherectomy and stenting to 80% stenosis in mid first diagonal artery in April 2011. S/P CABG x 3 (Chronic) Onset Date: 05/09/02 Z95.1 MACIAS to LAD, aortocoronary left radial artery to obtuse marginal artery, SVG to PDA H/O percutaneous transluminal coronary angioplasty (Chronic) Onset Date: ~05/13/11 Z98.61 stent to diagonal 1 History of cardiac catheterization (Chronic) Onset Date: ~03/2002 Z98.890 03/28,06/28 History of colon resection Onset Date: 09/15/13 Z90.49 History of hemorrhoidectomy Z98.890 History of right inguinal hernia repair Z98.890, Z87.19 History of squamous cell carcinoma excision Onset Date: 10/23/11 Z98.890, Z85.9 left bahai with rhomboid transposition skin flap reconstruction History of tonsillectomy Z90.89 History of ureter stent Onset Date: ~07/2008 Surgical History: angioplasty, colectomy, coronary bypass surgery - x 3., herniorrhaphy - Hiatal., tonsillectomy, - - Ureteral stent, hemorrhoidectomy. Psychiatric History: Depression Lives: Spouse/ Significant Other Smoking Status: Former smoker Tobacco Use: Non-smoker Alcohol: None Drugs: None - *Family History Maternal Family History: Family History (Last Reviewed 06/01/18 @ 07:27 by Nico Ordoñez MD) Father CVA (cerebral vascular accident) Brother Heart disease History Items: - - Denies maternal cardiac history Paternal Family History: Family History (Last Reviewed 06/01/18 @ 07:27 by Nico Ordoñez MD) Father CVA (cerebral vascular accident) Brother Heart disease History Items: - - No stroke Review of Systems Constitutional: Denies: Chills, Fever, Weight Change HEENT: Denies: Head Aches, Sinus Congestion, Sinus Drainage Cardiovascular: Denies: Chest Pain, Palpitations Respiratory: Denies: Cough, Shortness of breath at rest, Sputum production Gastrointestinal: Denies: Abdominal Pain, Nausea, Vomiting Genitourinary: Denies: Dysuria Musculoskeletal: Denies: Joint Pain, Joint Tenderness Skin: Denies: Rash, Wounds Neurological: Denies: Numbness, Tingling, Focal weakness Psychiatric: Denies: Anxiety, Depression, Homicidal Ideations, Suicidal Ideations Hematologic/ Lymphatic: Denies: Easy Bruising, Easy Bleeding VTE Information - Inpt Only VTE Present on Admission: No VTE Mechan Device Prophylaxis: Knee High ANNA MARIE Hose VTE Pharm Prophylaxis ordered?: Yes Patient Problems: Active and Suspected Problems (Last Reviewed 06/01/18 @ 07:27 by Nico Ordoñez MD) Encephalopathy (Acute) Community acquired pneumonia (Acute) - Physical Exam General: Alert, Oriented x3, Cooperative HEENT: Atraumatic, PERRLA, EOMI, Normocephalic Neck: Supple, No JVD, Negative Carotid Bruits Lungs: Clear to auscultation, Normal air movement Cardiovascular: Regular rate, No murmurs Abdomen: Bowel Sounds Present, Soft, Non Tender Extremities: No edema, Capillary Refill Less than 3 Seconds Skin: No rashes, No breakdown Musculoskeletal: No Tenderness to Palpation of Joints or Extremities Neurological: Cranial nerves II-XII grossly intact Psych/Mental Status: Normal Affect, Appropriate Vital Signs Temp Pulse Resp BP Pulse Ox 99.2 F H 89 18 103/77 92 06/03/18 16:57 06/03/18 16:57 06/03/18 16:57 06/03/18 16:57 06/03/18 16:57 Oxygen Delivery Method Room Air Weight: 83.2 kg Body Mass Index (BMI) 25.5 Finger Stick Blood Glucose 103 Intake and Output for Last 24 Hours 06/01/18 06/02/18 06/03/18 23:59 23:59 23:59 Intake Total 240 / 240 Balance 240 / 240 Assessment/Plan All Active Problems (Last Reviewed 06/01/18 @ 07:27 by Nico Ordoñez MD) Ureteral calculus, right (Acute) RSV infection (Acute) JAVIER (acute kidney injury) (Acute) Acute metabolic encephalopathy (Acute) Encephalopathy (Acute) Community acquired pneumonia (Acute) 78 year old male with below past medical history hospitalized for acute delirium secondary to RSV B infection, complicated by right ureteral stone, acute kidney injury, admitted to TCU with debility, here for rehabilitation, strengthening, prior to discharge home with spouse. * Debility - PT/OT. * Pain - Tylenol 1000MG Q6H PRN mild pain. * Bowel - Miralax 17GM daily, Senna/colace 1 tablet BID, Dulcolax 10MG daily PRN. * Pneumonia vaccination - Administer Prevnar 13 and/or Pneumovax 23 as necessary. * DVT prophylaxis - Lovenox 40MG SC daily. * RSV B - Albuterol 2.5MG Q2H PRN, Duoneb 3ML Q6H PRN, Prednisone taper. * Coronary Artery Disease - Ramipril 5MG daily, Aspirin 81MG daily, Plavix 75MG daily, consider changing Plavix to Xarelto 2.5MG twice daily to further decrease risk of major cardiovascular event. * Vascular Dementia - Donepezil 10MG QHS. * Depression - Lexapro 10MG daily, resident doing well with chronic custodial use, GDR clinically contraindicated. * Hyperlipidemia - Zetia 10MG daily. * Nutrition - Glucerna 120ML 4x/day. * Type 2 Diabetes Mellitus - Pioglitazone 30MG daily. * Hypertension - Ramipril 5MG daily. * Right ureteral stone - s/p ureteral stent, follow up with Dr. Ordoñez as outpatient.
[2018-06-03] MEDS: Donepezil HCl 10 MG Tablet PO (22:38)
[2018-06-03] MEDS: Glucerna Shake 120 ML LIQUID PO (22:38)
[2018-06-04 06:03] LABS: Absolute Lymphocyte Count 1.28 X10^3/ul (0.83-4.51); Absolute Neutrophil Count 5.3 X10^3/uL (2.0-7.7); Basophil# 0.02 X10^3/uL; Basophil% 0.3 % (0-1); Eosinophil# 0.01 X10^3/uL; Eosinophils% 0.1 % (0-5); Lymphocyte # 1.28 X10^3/ul (4.0); Lymphocyte % 16.8 % (19-41); Mean Corp Hgb Conc 31.6 g/gl (32-36); Mean Corpuscular Hgb 28.8 pg (27.0-32.0); Mean Corpuscular Volume 91.3 fL (80-94); Mean Platelet Vol. 11.1 fl (6.2-12.0); Monocyte# 0.99 X10^3/uL; Neutrophil % 69.7 % (47-70); Platelet Count 165 K/mm3 (150-450); RBC Distribution Width CV 14.5 % (11.6-14.6); RBC Distribution Width SD 47.9 fl (35.1-43.9); Red Blood Count 4.16 M/mm3 (4.6-6.2); White Blood Count 7.6 K/mm3 (4.4-11.0)
[2018-06-04 06:12] LABS: Anion Gap 11 (5-15); BUN 19 mg/dL (7-18); BUN/Creat Ratio 15.6 RATIO (10-20); Calcium,Total 8.5 mg/dL (8.5-10.1); Chloride 109 mmol/L (98-107); Creatinine, Serum 1.22 mg/dL (0.70-1.30); EST Glomerular Filtration Rate 61 mL/min (>60); Est Glom Filt Rate - Afr Amer 74 mL/min (>60); Estimated Creatinine Clearance 52.29 ml/min; Glucose 114 mg/dL (74-106); Potassium 3.5 mmol/L (3.5-5.1); Sodium Level 145 mmol/L (136-145)
[2018-06-04 06:13] LABS: POSITIVE COUNT NO; POSITIVE DIFFERENTIAL NO; POSITIVE MORPHOLOGY NO
[2018-06-04 06:15] VITALS: BP 124/77; PULSE 98
[2018-06-04] MEDS: Glucerna Shake 120 ML LIQUID PO ×4 (06:15→20:03)
[2018-06-04] MEDS: Senna/Docusate Sodium 1 Tablet PO (06:16)
[2018-06-04] MEDS: Polyethylene Glycol 3350 17 GM PACKET PO (06:16)
[2018-06-04] MEDS: Escitalopram Oxalate 10 MG Tablet PO (06:16)
[2018-06-04] MEDS: Ramipril 5 MG Capsule PO (06:16)
[2018-06-04] MEDS: Ezetimibe 10 MG Tablet PO (06:16)
--- NOTE | 2018-06-04 06:23 | NURSING ---
did not give eliquis or lovenox because of hematuria. left the med on the jun. will update dayshift so they can talk to the
[2018-06-04 06:48] LABS: Bedside Glucose 97 mg/dL (70-110)
[2018-06-04] MEDS: Pioglitazone Hydrochloride 15 MG Tablet 30 MG PO (06:57)
[2018-06-04] MEDS: predniSONE 20 MG Tablet 40 MG PO (07:54)
[2018-06-04] MEDS: Aspirin E.C. 81 MG Tablet PO (07:54)
--- NOTE | 2018-06-04 10:59 | CASEMGMT ---
Pt reports he does have a Living Will and HCPOA which names his Beryl. SW requested pt ask to provide copy to [facility]. Pt agreeable. REI Niño
[2018-06-04] MEDS: Tuberculin,Purif.prot.deriv. 50 TU/ML Vial 5 ML ID (12:28)
--- NOTE | 2018-06-04 13:42 | NURSING ---
Pt remains in droplet/contact precautions, all therapies and activities done in room.
[2018-06-04 15:32] VITALS: BP 134/78; PULSE 88; RESP 18; TEMP 36; O2SAT 99
[2018-06-04] MEDS: Donepezil HCl 10 MG Tablet PO (20:03)
--- NOTE | 2018-06-04 22:42 | NURSING ---
Pt remains in droplet/contact precaution for RSV all care provided in room
--- NOTE | 2018-06-05 05:51 | NURSING ---
This nurse tried given morning meds as ordered pt refused.
--- NOTE | 2018-06-05 07:03 | NURSING ---
Nurse removed saline lock from right forearm catheter intacted no s/sx noted.
[2018-06-05] MEDS: Pioglitazone Hydrochloride 15 MG Tablet 30 MG PO (13:20)
[2018-06-05] MEDS: Aspirin E.C. 81 MG Tablet PO (13:20)
[2018-06-05] MEDS: Polyethylene Glycol 3350 17 GM PACKET PO (13:21)
[2018-06-05] MEDS: Senna/Docusate Sodium 1 Tablet PO ×2 (13:21→16:16)
[2018-06-05] MEDS: Escitalopram Oxalate 10 MG Tablet PO (13:21)
[2018-06-05] MEDS: Ramipril 5 MG Capsule PO (13:21)
[2018-06-05] MEDS: Ezetimibe 10 MG Tablet PO (13:22)
[2018-06-05] MEDS: Glucerna Shake 120 ML LIQUID PO ×3 (13:23→19:33)
[2018-06-05] MEDS: predniSONE 20 MG Tablet 40 MG PO (13:29)
[2018-06-05 15:20] VITALS: BP 119/63; PULSE 71; RESP 18; TEMP 36.6; O2SAT 93
--- NOTE | 2018-06-05 18:19 | NURSING ---
All care/treatments provided in room d/t isolation.
[2018-06-05] MEDS: Donepezil HCl 10 MG Tablet PO (19:33)
--- NOTE | 2018-06-05 21:04 | NURSING ---
Pt remains in droplet/contact precaution for RSV all care provided in room
[2018-06-06] MEDS: Ezetimibe 10 MG Tablet PO (04:29)
[2018-06-06] MEDS: Glucerna Shake 120 ML LIQUID PO ×3 (04:29→18:23)
[2018-06-06] MEDS: Polyethylene Glycol 3350 17 GM PACKET PO (04:30)
[2018-06-06] MEDS: Ramipril 5 MG Capsule PO (04:30)
[2018-06-06] MEDS: Senna/Docusate Sodium 1 Tablet PO (04:30)
[2018-06-06] MEDS: Escitalopram Oxalate 10 MG Tablet PO (04:30)
[2018-06-06] MEDS: Pioglitazone Hydrochloride 15 MG Tablet 30 MG PO (04:30)
--- NOTE | 2018-06-06 06:35 | NURSING ---
HISTOPATHOLOGY TECHNICIAN reported that concerned about pt coughing with meals. Speech eval ordered.
[2018-06-06] MEDS: Aspirin E.C. 81 MG Tablet PO (07:59)
--- NOTE | 2018-06-06 08:00 | NURSING ---
all care/treatment provided in pt room d/t isolation precautions
[2018-06-06 10:00] VITALS: PULSE 70; O2SAT 91
--- NOTE | 2018-06-06 11:45 | NURSING ---
Care provided in room due to isolation status.
[2018-06-06 15:50] VITALS: BP 101/60; PULSE 63; RESP 18; TEMP 36; O2SAT 94
[2018-06-06] MEDS: guaiFENesin Dm 10 ML UDC 5 ML PO (16:25)
--- NOTE | 2018-06-06 20:37 | NURSING ---
All care provided to patient in room due to patient being in isolation.
--- NOTE | 2018-06-06 20:38 | NURSING ---
Tried to give patient's HS medications per order. Patient refused.
[2018-06-07] MEDS: Clopidogrel Bisulfate 75 MG Tablet PO (03:52)
[2018-06-07] MEDS: Enoxaparin 40 MG/0.4 ML Syringe SC (03:52)
[2018-06-07] MEDS: Glucerna Shake 120 ML LIQUID PO ×4 (03:53→19:36)
[2018-06-07] MEDS: Pioglitazone Hydrochloride 15 MG Tablet 30 MG PO (03:57)
[2018-06-07] MEDS: Escitalopram Oxalate 10 MG Tablet PO (03:57)
[2018-06-07] MEDS: Ezetimibe 10 MG Tablet PO (03:58)
[2018-06-07] MEDS: Ramipril 5 MG Capsule PO (03:58)
[2018-06-07] MEDS: Senna/Docusate Sodium 1 Tablet PO ×2 (03:58→16:44)
--- NOTE | 2018-06-07 08:10 | PHA.CONS_ITS ---
<JraredHarshad burris D - Last Filed: 06/07/18 08:04> Progress Note - Pharmacy Subjective: TCU Admission Objective: Allergies iodine Allergy (Verified 05/31/18 11:49) Hives Penicillins Allergy (Verified 05/31/18 15:47) Rash Current Medications Generic Name Dose Route Start Last Admin Trade Name Freq PRN Reason Stop Dose Admin Acetaminophen 1,000 mg 06/03/18 22:00 Tylenol PO Q6H PRN PRN MILD PAIN (1-07/04) Albuterol Sulfate 2.5 mg 06/03/18 17:30 Ventolin Aerosols INHALATION Q2H PRN PRN SOB &/OR WHEEZING Albuterol/Ipratropium 3 ml 06/03/18 17:30 Duoneb INHALATION Q6H PRN PRN SOB &/OR WHEEZING Aspirin 81 mg 06/04/18 08:00 06/06/18 07:59 Ecotrin PO 81 mg DAILY@0800 EL Administration Bisacodyl 10 mg 06/03/18 21:59 Dulcolax PO DAILY PRN Constipation Clopidogrel Bisulfate 75 mg 06/04/18 06:00 06/07/18 03:52 Plavix PO 75 mg DAILY [facility] Administration Donepezil HCl 10 mg 06/03/18 22:00 06/06/18 20:24 Aricept PO Not Given QHS EL Ezetimibe 10 mg 06/04/18 06:00 06/07/18 03:58 Zetia PO 10 mg DAILY EL Administration Enoxaparin Sodium 40 mg 06/04/18 06:00 06/07/18 03:52 Lovenox SC 40 mg DAILY@0600 [facility] Administration Escitalopram Oxalate 10 mg 06/04/18 06:00 06/07/18 03:57 Lexapro PO 10 mg DAILY EL Administration Guaifenesin 5 ml 06/06/18 11:01 06/06/18 16:25 Robitussin Dm PO 5 ml Q6H PRN PRN Administration COUGH Nutritional Formula (Lactose Free) 120 ml 06/03/18 22:00 06/07/18 03:53 Glucerna Shake PO 120 ml 4X/DAY EL Administration Pioglitazone HCl 30 mg 06/04/18 06:00 06/07/18 03:57 Actos PO 30 mg DAILY EL Administration Polyethylene Glycol 17 gm 06/04/18 06:00 06/07/18 03:52 Miralax PO Not Given DAILY EL Ramipril 5 mg 06/04/18 06:00 06/07/18 03:58 Altace PO 5 mg DAILY EL Administration Senna/Docusate Sodium 1 tablet 06/04/18 06:00 06/07/18 03:58 Senokot-S, Katelyn-Colace PO 1 tablet BID EL Administration Problem List (Last Reviewed 06/01/18 @ 07:27 by Nico Ordoñez MD) Encephalopathy (Acute) Community acquired pneumonia (Acute) Stroke (Chronic) Diabetes mellitus (Chronic) Chronic kidney disease (Chronic) Asthma (Chronic) Vital Signs Temp Pulse Resp BP Pulse Ox 96.8 F L 63 18 101/60 94 06/06/18 15:50 06/06/18 15:50 06/06/18 15:50 06/06/18 15:50 06/06/18 15:50 Oxygen Delivery Method Room Air Weight: 83.2 kg Body Mass Index (BMI) 25.5 Finger Stick Blood Glucose 103 Sodium 145 mmol/L (136-145) 06/04/18 05:19 Potassium 3.5 mmol/L (3.5-5.1) 06/04/18 05:19 Chloride 109 mmol/L (98-107) H 06/04/18 05:19 Carbon Dioxide 25.0 mmol/L (21.0-32.0) 06/04/18 05:19 Anion Gap 11 (5-15) 06/04/18 05:19 BUN 19 mg/dL (7-18) H 06/04/18 05:19 Creatinine 1.22 mg/dL (0.70-1.30) 06/04/18 05:19 Est GFR (MDRD) Af Amer 74 mL/min (>60) 06/04/18 05:19 Est GFR (MDRD) Non-Af 61 mL/min (>60) 06/04/18 05:19 BUN/Creatinine Ratio 15.6 RATIO (10-20) 06/04/18 05:19 Glucose 114 mg/dL (74-106) H 06/04/18 05:19 Assessment/Plan: 1) Pain APAP for mild pain. Continue to monitor prn medication use, daily pain scores. 2) HTN/CAD Ramipril, clopidogrel, ASA. Continue to monitor BP/HR, renal function, electrolytes. 3) Dementia Donepezil at HS. Continue to monitor clinically. 4) HLD Ezetimibe. Continue to monitor lipids. 5) DM2 Pioglitazone. Continue to monitor BGT. 6) DVT PPx Enoxaparin daily. Continue to monitor s/s bleeding/clot. Psychotropic Medications: 7) Depression Escitalopram daily. Continue to monitor s/s depression/anxiety. Unnecessary Medications: * 8) Patient has Duoneb and albuterol aerosols both ordered for same indication. Please dc one or change the instructions. Thank you. Bowel Regimen: 9) Senna/s, PEG, prn bisacodyl. Continue to monitor prn medication use, for constipation/diarrhea. Date of Note:: 06/07/18 - Provider Comments Provider responsibility: Provider responsible to enter orders to implement recommendations <Ravinder Ellis Chi - Last Filed: 06/07/18 08:17> Progress Note - Pharmacy Subjective: [] Objective: Allergies iodine Allergy (Verified 05/31/18 11:49) Hives Penicillins Allergy (Verified 05/31/18 15:47) Rash Current Medications Generic Name Dose Route Start Last Admin Trade Name Freq PRN Reason Stop Dose Admin Acetaminophen 1,000 mg 06/03/18 22:00 Tylenol PO Q6H PRN PRN MILD PAIN (1-3/10) Albuterol Sulfate 2.5 mg 06/03/18 17:30 Ventolin Aerosols INHALATION Q2H PRN PRN SOB &/OR WHEEZING Albuterol/Ipratropium 3 ml 06/03/18 17:30 Duoneb INHALATION Q6H PRN PRN SOB &/OR WHEEZING Aspirin 81 mg 06/04/18 08:00 06/06/18 07:59 Ecotrin PO 81 mg DAILY@0800 EL Administration Bisacodyl 10 mg 06/03/18 21:59 Dulcolax PO DAILY PRN Constipation Clopidogrel Bisulfate 75 mg 06/04/18 06:00 06/07/18 03:52 Plavix PO 75 mg DAILY EL Administration Donepezil HCl 10 mg 06/03/18 22:00 06/06/18 20:24 Aricept PO Not Given QHS EL Ezetimibe 10 mg 06/04/18 06:00 06/07/18 03:58 Zetia PO 10 mg DAILY EL Administration Enoxaparin Sodium 40 mg 06/04/18 06:00 06/07/18 03:52 Lovenox SC 40 mg DAILY@0600 EL Administration Escitalopram Oxalate 10 mg 06/04/18 06:00 06/07/18 03:57 Lexapro PO 10 mg DAILY EL Administration Guaifenesin 5 ml 06/06/18 11:01 06/06/18 16:25 Robitussin Dm PO 5 ml Q6H PRN PRN Administration COUGH Nutritional Formula (Lactose Free) 120 ml 06/03/18 22:00 06/07/18 03:53 Glucerna Shake PO 120 ml 4X/DAY EL Administration Pioglitazone HCl 30 mg 06/04/18 06:00 06/07/18 03:57 Actos PO 30 mg DAILY EL Administration Polyethylene Glycol 17 gm 06/04/18 06:00 06/07/18 03:52 Miralax PO Not Given DAILY EL Ramipril 5 mg 06/04/18 06:00 06/07/18 03:58 Altace PO 5 mg DAILY EL Administration Senna/Docusate Sodium 1 tablet 06/04/18 06:00 06/07/18 03:58 Senokot-S, Katelyn-Colace PO 1 tablet BID EL Administration Problem List (Last Reviewed 06/01/18 @ 07:27 by Nico Ordoñez MD) Encephalopathy (Acute) Community acquired pneumonia (Acute) Stroke (Chronic) Diabetes mellitus (Chronic) Chronic kidney disease (Chronic) Asthma (Chronic) Vital Signs Temp Pulse Resp BP Pulse Ox 96.8 F L 63 18 101/60 94 06/06/18 15:50 06/06/18 15:50 06/06/18 15:50 06/06/18 15:50 06/06/18 15:50 Oxygen Delivery Method Room Air Weight: 83.2 kg Body Mass Index (BMI) 25.5 Finger Stick Blood Glucose 103 Sodium 145 mmol/L (136-145) 06/04/18 05:19 Potassium 3.5 mmol/L (3.5-5.1) 06/04/18 05:19 Chloride 109 mmol/L (98-107) H 06/04/18 05:19 Carbon Dioxide 25.0 mmol/L (21.0-32.0) 06/04/18 05:19 Anion Gap 11 (5-15) 06/04/18 05:19 BUN 19 mg/dL (7-18) H 06/04/18 05:19 Creatinine 1.22 mg/dL (0.70-1.30) 06/04/18 05:19 Est GFR (MDRD) Af Amer 74 mL/min (>60) 06/04/18 05:19 Est GFR (MDRD) Non-Af 61 mL/min (>60) 06/04/18 05:19 BUN/Creatinine Ratio 15.6 RATIO (10-20) 06/04/18 05:19 Glucose 114 mg/dL (74-106) H 06/04/18 05:19 Assessment/Plan: Psychotropic Medications: Unnecessary Medications: Bowel Regimen: - Provider Comments Provider responsibility: Provider responsible to enter orders to implement recommendations Provider Comments to Recommendations by Pharmacy: Agree
[2018-06-07] MEDS: Aspirin E.C. 81 MG Tablet PO (09:17)
[2018-06-07] MEDS: guaiFENesin Dm 10 ML UDC 5 ML PO (09:22)
[2018-06-07 10:00] VITALS: PULSE 73; RESP 18; O2SAT 96
[2018-06-07] MEDS: Acetaminophen 500 MG Tablet 1000 MG PO (12:34)
--- NOTE | 2018-06-07 12:49 | NURSING ---
Resident sleepy and painful. Is not wanting to eat his lunch. Encouraged to take his Glucerna but takes about half of it. Tylenol given for complaints of Lt rib pain. Will continue to monitor.
[2018-06-07 15:47] VITALS: BP 107/70; PULSE 80; RESP 16; TEMP 36.2; O2SAT 95
--- NOTE | 2018-06-07 17:18 | NURSING ---
orders from dr cali to consult Dr Ordoñez to see if resident can have stent removed while he is a patient here.
[2018-06-07] MEDS: Donepezil HCl 10 MG Tablet PO (19:37)
--- NOTE | 2018-06-07 19:54 | NURSING ---
all care provided in pt room d/t isolation precautions,. Hs medication administered per doctor orders
[2018-06-08] MEDS: guaiFENesin Dm 10 ML UDC 5 ML PO (03:25)
[2018-06-08] MEDS: Polyethylene Glycol 3350 17 GM PACKET PO (04:43)
[2018-06-08] MEDS: Glucerna Shake 120 ML LIQUID PO ×4 (04:44→19:39)
[2018-06-08] MEDS: Escitalopram Oxalate 10 MG Tablet PO (04:46)
[2018-06-08] MEDS: Clopidogrel Bisulfate 75 MG Tablet PO (04:46)
[2018-06-08] MEDS: Ramipril 5 MG Capsule PO (04:46)
[2018-06-08] MEDS: Pioglitazone Hydrochloride 15 MG Tablet 30 MG PO (04:46)
[2018-06-08] MEDS: Senna/Docusate Sodium 1 Tablet PO ×2 (04:46→16:58)
[2018-06-08] MEDS: Enoxaparin 40 MG/0.4 ML Syringe SC (04:52)
[2018-06-08] MEDS: Ezetimibe 10 MG Tablet PO (04:55)
[2018-06-08] MEDS: Aspirin E.C. 81 MG Tablet PO (07:40)
--- NOTE | 2018-06-08 10:40 | NURSING ---
ALL CARE PROVIDED IN ROOM THIS SHIFT D/T DROPLET PRECAUTIONS.
--- NOTE | 2018-06-08 13:57 | NURSING ---
Dr. Ordoñez to come in to see patient regarding hematuria and possible stent removal.
--- NOTE | 2018-06-08 15:32 | CASEMGMT ---
Insurance Clinical information sent. Pending continued stay approval at this time. Auth#[id number] Scout ESCOBAR, RENAY
--- NOTE | 2018-06-08 15:34 | NURSING ---
Patient and wish to make code status a DNR-CCA. Explained differences in code status options clearly to patient and family, agreeable to DNRCCA status.
[2018-06-08 16:00] VITALS: BP 132/52; PULSE 65; RESP 18; TEMP 36.3; O2SAT 97
--- NOTE | 2018-06-08 17:10 | CHAPLAIN ---
Type of Pastoral Visit ___ Initial Visit ___ Follow-up Visit ___ On-call Visit ___ General Patient Visit ___ Spiritual Assessment ___ Family Conference ___ Bereavement ___ Rapid Response ___ Code Blue _x__ Other (describe below) Pastoral Care Referral From ___ Patient _x__ Family ___ Nurse ___ Physician ___ Genetics Nurse ___ Patient Accounts Manager ___ Other (describe below) Sacrament/Intervention _x__ Active listening ___ Anointing ___ Sabianism ___ Bereavement ___ Communion ___ Zenia exploration ___ ___ Life review ___ Prayer ___ Reconciliation ___ Sacrament of Sick _x__ Supportive presence ___ Wedding ___ Other (describe below) Pastoral Comments greeted patient but he has family members in room; spoke with family members outside of room and discussed recent developments and decisions about pt and his future care; family members are emotional and struggling with the thoughts of future and possible end of life; family has eznia and say they put their trust in God and His salvador care; family is open to future support from concessions manager
[2018-06-08] MEDS: Acetaminophen 500 MG Tablet 1000 MG PO (17:20)
[2018-06-08] MEDS: Donepezil HCl 10 MG Tablet PO (19:38)
[2018-06-08] MEDS: Menthol/Lanolin/Calamine/Znox 113 GM Tube 1 APPLIC TOPICAL (20:30)
[2018-06-09] MEDS: Pioglitazone Hydrochloride 15 MG Tablet 30 MG PO (05:54)
[2018-06-09] MEDS: Ezetimibe 10 MG Tablet PO (05:54)
[2018-06-09] MEDS: Polyethylene Glycol 3350 17 GM PACKET PO (05:55)
[2018-06-09] MEDS: Enoxaparin 40 MG/0.4 ML Syringe SC (05:55)
[2018-06-09] MEDS: Senna/Docusate Sodium 1 Tablet PO ×2 (05:55→16:50)
[2018-06-09] MEDS: Clopidogrel Bisulfate 75 MG Tablet PO (05:55)
[2018-06-09] MEDS: Ramipril 5 MG Capsule PO (05:55)
[2018-06-09] MEDS: Escitalopram Oxalate 10 MG Tablet PO (05:55)
[2018-06-09] MEDS: Menthol/Lanolin/Calamine/Znox 113 GM Tube 1 APPLIC TOPICAL ×2 (05:55→19:34)
[2018-06-09] MEDS: Glucerna Shake 120 ML LIQUID PO ×4 (05:56→19:30)
--- NOTE | 2018-06-09 06:05 | NURSING ---
All care provided to patient in room due to patient being in isolation.
[2018-06-09] MEDS: Aspirin E.C. 81 MG Tablet PO (08:00)
[2018-06-09] MEDS: Acetaminophen 500 MG Tablet 1000 MG PO ×2 (09:36→16:49)
--- NOTE | 2018-06-09 12:37 | CASEMGMT ---
Insurance Continued stay approved with next update due on 06/14/18. Auth#[id number] Scout ESCOBAR, RENAY
--- NOTE | 2018-06-09 12:37 | CASEMGMT ---
Plan of care meeting held. Resident present as well as resident family. No discharge date set a this time. Resident with next insurance update due on 06/14/18 and resident/resident family are aware that continued stay approval is not guaranteed. Resident family unsure of discharge plan. This social services assistant meeting with resident family and discussing discharge options such at home with home health care, PASSPORT services, Medicaid application, Extended care facility, and assisted living. Resident family reporting to be unable to afford assisted living, private duty aides or an ECF private pay. This social services assistant providing resident spouse with a Medicaid application and also deciding to make a referral to PASSPORT. This social services assistant providing resident family with list of extended care facilities within the area and explaining medicaid pending. Resident family unsure about placement vs. home with possible PASSPORT services. Resident family aware that it takes time for PASSPORT services to get set up and to have application processed. Resident spouse reporting to be feeling overwhelmed with resident current level of need. This social services assistant providing emotional support throughout conversation. Will continue to follow as needed. Resident spouse to get Medicaid application back to social services assistant by this 06/11/18. Faxed referral for PASSPORT services to the [facility]. Scout Eli MSW, RENAY
--- NOTE | 2018-06-09 12:55 | NURSING ---
pT REMAINS IN ISOLATION, ALL ACTIVITIES/THERAPIES DONE IN ROOM.
--- NOTE | 2018-06-09 15:14 | CHAPLAIN ---
patient was sleeping at first attempt; pt is with PT at second attempt to visit
[2018-06-09 15:41] VITALS: BP 106/60; PULSE 64; RESP 18; TEMP 35.9; O2SAT 96
--- NOTE | 2018-06-09 17:23 | CON.PCM_ITS ---
Reason for Consult Date of Consultation: 06/09/18 Reason for Consultation: Follow-up on kidney stone and new onset of left flank pain History of Present Illness: The patient is a 78 year old male who is in the hospital with respiratory infection difficulty with breathing who had an impacted stone in the right mid ureter underwent cystoscopy right stent placement he is now in transitional care unit recovering from his procedure. His is concerned because these have any new flank pain on the left side which is unusual stent was placed on the right may have to look into this he did have a stone in the left kidney hopefully has not moved down. Past Medical History Past Medical History (Chronic Problems): Chronic Problems (Last Reviewed 06/01/18 @ 07:27 by Nico Ordoñez MD) Debility (Chronic) Vascular dementia (Chronic) Coronary artery disease (Chronic) Hyperlipidemia (Chronic) Hypothyroidism (Chronic) Depression (Chronic) Overactive bladder (Chronic) Stroke (Chronic) Diabetes mellitus (Chronic) Chronic kidney disease (Chronic) Asthma (Chronic) History of CVA (cerebrovascular accident) (Chronic) Atherosclerosis of [place] coronary artery of [place] heart without angina pectoris (Chronic) MACIAS to LAD, aortocoronary left radial artery to obtuse marginal artery, SVG to PDA; GERD (gastroesophageal reflux disease) (Chronic) History of angioplasty (Chronic 11/06/89) Angioplasty and stenting to 70% stenosis in proximal LAD, angioplasty and stenting to proximal diagonal LAD at bifurcation, and atherectomy and stenting to 80% stenosis in mid first diagonal artery in April 2011. 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) MACIAS to LAD, aortocoronary left radial artery to obtuse marginal artery, SVG to PDA H/O percutaneous transluminal coronary angioplasty (Chronic ~05/13/11) stent to diagonal 1 History of cardiac catheterization (Chronic ~03/2002) 03/28,03/ DM2 (diabetes mellitus, type 2) (Chronic) CKD (chronic kidney disease) stage 3, GFR 30-59 ml/min (Chronic) Mild intermittent asthma (Chronic) Nephrolithiasis (Chronic) Medical History: Medical History (Last Reviewed 06/09/18 @ 17:22 by Nico Ordoñez MD) Atherosclerosis of [place] coronary artery of [place] heart without angina pectoris (Chronic) I25.10 MACIAS to LAD, aortocoronary left radial artery to obtuse marginal artery, SVG to PDA; GERD (gastroesophageal reflux disease) (Chronic) K21.9 DM2 (diabetes mellitus, type 2) (Chronic) E11.9 CKD (chronic kidney disease) stage 3, GFR 30-59 ml/min (Chronic) Mild intermittent asthma (Chronic) J45.20 Nephrolithiasis (Chronic) History of Gerard's esophagus Z87.19 History of asthma Z87.09 History of irritable bowel syndrome Z87.19 Hypothyroidism E03.9 Allergies iodine Allergy (Verified 05/31/18 11:49) Hives Penicillins Allergy (Verified 05/31/18 15:47) Rash Home Medications: Ambulatory Orders Medication Instructions Recorded Aspirin E.C. [Ecotrin] 81 mg PO DAILY@0800 09/15/13 Escitalopram Oxalate [Lexapro] 10 mg PO DAILY 09/15/13 Pioglitazone [Actos] 30 mg PO DAILY 09/15/13 Donepezil HCl [Aricept] 10 mg PO QHS 02/27/16 docusate sodium 100 mg capsule 100 mg PO DAILY PRN cap 02/24/18 Clopidogrel Bisulfate [Plavix] 75 mg PO DAILY 04/30/18 Ezetimibe [Zetia] 10 mg PO DAILY 04/30/18 Ramipril 5 mg PO DAILY 05/31/18 Acetaminophen [Tylenol Tablet] 650 mg PO Q6H PRN PRN tablet 06/03/18 Albuterol Aerosols [Ventolin 2.5 mg INHALATION Q2H PRN PRN 06/03/18 Aerosols] vial.neb. Glucerna Shake 120 ml PO 4X/DAY 06/03/18 Ipratropium/Albuterol Sulfate 3 ml INHALATION Q6H PRN PRN 06/03/18 [Duoneb] ampul.neb Magnesium Hydroxide [Milk Of 30 ml PO DAILY PRN PRN udc 06/03/18 Magnesia] Psyllium [Metamucil] 1 packet PO DAILY PRN PRN packet 06/03/18 predniSONE tablet 40 mg PO DAILY@0800 06/03/18 Surgical History: Surgical History (Last Reviewed 06/09/18 @ 17:22 by Nico Ordoñez MD) History of angioplasty (Chronic) Onset Date: 11/06/89 Z98.62 Angioplasty and stenting to 70% stenosis in proximal LAD, angioplasty and stenting to proximal diagonal LAD at bifurcation, and atherectomy and stenting to 80% stenosis in mid first diagonal artery in April 2011. S/P CABG x 3 (Chronic) Onset Date: 05/09/02 Z95.1 MACIAS to LAD, aortocoronary left radial artery to obtuse marginal artery, SVG to PDA H/O percutaneous transluminal coronary angioplasty (Chronic) Onset Date: ~05/13/11 Z98.61 stent to diagonal 1 History of cardiac catheterization (Chronic) Onset Date: ~03/2002 Z98.890 03/28,06/28 History of colon resection Onset Date: 09/15/13 Z90.49 History of hemorrhoidectomy Z98.890 History of right inguinal hernia repair Z98.890, Z87.19 History of squamous cell carcinoma excision Onset Date: 10/23/11 Z98.890, Z85.9 left mandaeism with rhomboid transposition skin flap reconstruction History of tonsillectomy Z90.89 History of ureter stent Onset Date: ~07/2008 Surgical History: angioplasty, colectomy, coronary bypass surgery - x 3., herniorrhaphy - Hiatal., tonsillectomy, - - Ureteral stent, hemorrhoidectomy. Psychiatric History: Depression Lives: Spouse/ Significant Other Smoking Status: Former smoker Tobacco Use: Non-smoker Alcohol: None Drugs: None - *Family History Maternal Family History: Family History (Last Reviewed 06/09/18 @ 17:22 by Nico Ordoñez MD) Father CVA (cerebral vascular accident) Brother Heart disease History Items: - - Denies maternal cardiac history Paternal Family History: Family History (Last Reviewed 06/09/18 @ 17:22 by Nico Ordoñez MD) Father CVA (cerebral vascular accident) Brother Heart disease History Items: - - No stroke Review of Systems Constitutional: Denies: Chills, Fever, Weight Change HEENT: Denies: Head Aches, Sinus Congestion, Sinus Drainage Cardiovascular: Denies: Chest Pain, Palpitations Respiratory: Denies: Cough, Shortness of breath at rest, Sputum production Gastrointestinal: Reports: Abdominal Pain, - - Left leg pain new. Denies: Nausea, Vomiting Genitourinary: Denies: Dysuria Musculoskeletal: Denies: Joint Pain, Joint Tenderness Skin: Denies: Rash, Wounds Neurological: Denies: Numbness, Tingling, Focal weakness Psychiatric: Denies: Anxiety, Depression, Homicidal Ideations, Suicidal Ideations Hematologic/ Lymphatic: Denies: Easy Bruising, Easy Bleeding Physical Exam - Physical Exam Vital Signs Temp 96.7 F L 06/09/18 15:41 Pulse 64 06/09/18 15:41 Resp 18 06/09/18 15:41 BP 106/60 06/09/18 15:41 Pulse Ox 96 06/09/18 15:41 Intake & Output 06/07/18 06/08/18 06/09/18 23:59 23:59 23:59 Intake Total 520 / 520 840 / 840 160 / 160 Balance 520 / 520 840 / 840 160 / 160 Weight: 73.624 kg 73.624 kg Intake: Oral 520 / 520 840 / 840 160 / 160 Other: Number of Voids 2 Number of times incontinent 1 Incontinent Amount Moderate Large Moderate Incontinent Amount Urine #2 Moderate General: Alert, Oriented x3 HEENT: Atraumatic Oral: Moist Mucosa Neck: Supple Lungs: Normal air movement Abdomen: Soft, Obese Assessment/Plan All Active Problems (Last Reviewed 06/01/18 @ 07:27 by Nico Ordoñez MD) Ureteral calculus, right (Acute) RSV infection (Acute) JAVIER (acute kidney injury) (Acute) Acute metabolic encephalopathy (Acute) Encephalopathy (Acute) Community acquired pneumonia (Acute) 78-year-old male with multiple medical problems status post right stent placement for obstructing stone, but now is complaining of left flank pain he did have a known stone in left kidney I can have him do a CT scan stone protocol make sure there is no other new issues going on at the everything stable then I have my office set him up for ureteroscopy and laser lithotripsy of the stone in the next few weeks.
[2018-06-09] MEDS: Donepezil HCl 10 MG Tablet PO (19:30)
--- NOTE | 2018-06-09 23:09 | NURSING ---
All care provided to patient in room due to patient being in isolation.
[2018-06-10] MEDS: Polyethylene Glycol 3350 17 GM PACKET PO (05:31)
[2018-06-10] MEDS: Clopidogrel Bisulfate 75 MG Tablet PO (05:31)
[2018-06-10] MEDS: Senna/Docusate Sodium 1 Tablet PO ×2 (05:31→17:20)
[2018-06-10] MEDS: Bisacodyl 5 MG Tablet 10 MG PO (05:31)
[2018-06-10] MEDS: Pioglitazone Hydrochloride 15 MG Tablet 30 MG PO (05:31)
[2018-06-10] MEDS: Ezetimibe 10 MG Tablet PO (05:31)
[2018-06-10] MEDS: Enoxaparin 40 MG/0.4 ML Syringe SC (05:32)
[2018-06-10] MEDS: Escitalopram Oxalate 10 MG Tablet PO (05:32)
[2018-06-10] MEDS: Ramipril 5 MG Capsule PO (05:32)
[2018-06-10] MEDS: Glucerna Shake 120 ML LIQUID PO ×4 (05:34→21:13)
[2018-06-10] MEDS: Menthol/Lanolin/Calamine/Znox 113 GM Tube 1 APPLIC TOPICAL ×2 (05:39→21:13)
[2018-06-10] MEDS: Aspirin E.C. 81 MG Tablet PO (08:25)
--- NOTE | 2018-06-10 10:39 | CASEMGMT ---
Addendum entered by Carrie Eli 06/10/18 14:44: Reviewed and approved social work student MDS documentation on this day. Scout Eli MSW, RECREATION THERAPIST Original Note: Brief interview for mental status (BIMS) and mood (PHQ-9) completed on this day. BIMS score 10/09. PHQ-9 score 10/21. Christin Pedraza social work student
[2018-06-10 15:33] VITALS: BP 133/65; PULSE 60; RESP 18; TEMP 35.9; O2SAT 98
[2018-06-10] MEDS: Acetaminophen 500 MG Tablet 1000 MG PO (21:10)
[2018-06-10] MEDS: Donepezil HCl 10 MG Tablet PO (21:13)
[2018-06-11 06:23] LABS: Anion Gap 7 (5-15); BUN 29 mg/dL (7-18); BUN/Creat Ratio 21.3 RATIO (10-20); Calcium,Total 8.5 mg/dL (8.5-10.1); Chloride 113 mmol/L (98-107); Creatinine, Serum 1.36 mg/dL (0.70-1.30); EST Glomerular Filtration Rate 54 mL/min (>60); Est Glom Filt Rate - Afr Amer 65 mL/min (>60); Estimated Creatinine Clearance 45.86 ml/min; Glucose 89 mg/dL (74-106); Potassium 4.1 mmol/L (3.5-5.1); Sodium Level 147 mmol/L (136-145)
[2018-06-11] MEDS: Enoxaparin 40 MG/0.4 ML Syringe SC (06:27)
[2018-06-11] MEDS: Senna/Docusate Sodium 1 Tablet PO ×2 (06:27→17:19)
[2018-06-11] MEDS: Menthol/Lanolin/Calamine/Znox 113 GM Tube 1 APPLIC TOPICAL ×2 (06:27→21:28)
[2018-06-11] MEDS: Clopidogrel Bisulfate 75 MG Tablet PO (06:27)
[2018-06-11] MEDS: Ezetimibe 10 MG Tablet PO (06:27)
[2018-06-11] MEDS: Glucerna Shake 120 ML LIQUID PO ×4 (06:27→21:28)
[2018-06-11] MEDS: Pioglitazone Hydrochloride 15 MG Tablet 30 MG PO (06:27)
[2018-06-11] MEDS: Ramipril 5 MG Capsule PO (06:27)
[2018-06-11] MEDS: Escitalopram Oxalate 10 MG Tablet PO (06:27)
[2018-06-11] MEDS: Polyethylene Glycol 3350 17 GM PACKET PO (06:27)
[2018-06-11 06:31] LABS: Absolute Neutrophil Count 4.3 X10^3/uL (2.0-7.7); Basophil# 0.02 X10^3/uL; Basophil% 0.3 % (0-1); Eosinophils% 4.3 % (0-5); Hematocrit 39.8 % (40-54); Hemoglobin 11.9 g/dl (13.0-16.5); Lymphocyte % 24.1 % (19-41); Mean Corp Hgb Conc 29.9 g/gl (32-36); Mean Corpuscular Hgb 28.2 pg (27.0-32.0); Mean Corpuscular Volume 94.3 fL (80-94); Mean Platelet Vol. 10.7 fl (6.2-12.0); Monocyte# 0.69 X10^3/uL; Monocyte% 9.8 % (0-10); Neutrophil # 4.32 X10^3/uL (2.7-7.7); Neutrophil % 61.2 % (47-70); Platelet Count 188 K/mm3 (150-450); RBC Distribution Width CV 14.9 % (11.6-14.6); RBC Distribution Width SD 50.1 fl (35.1-43.9); Red Blood Count 4.22 M/mm3 (4.6-6.2); White Blood Count 7.1 K/mm3 (4.4-11.0)
[2018-06-11 06:39] LABS: POSITIVE COUNT NO; POSITIVE DIFFERENTIAL NO; POSITIVE MORPHOLOGY NO
[2018-06-11] MEDS: Aspirin E.C. 81 MG Tablet PO (07:55)
[2018-06-11] MEDS: Acetaminophen 500 MG Tablet 1000 MG PO ×2 (11:12→18:00)
--- NOTE | 2018-06-11 13:00 | RAD_ITS ---
STUDY: SWALLOWING STUDY REASON FOR EXAM: Male, 78 years old. Dysphagia. TECHNIQUE: The examination was performed with Speech Pathology in attendance. Under fluoroscopic observation, the patient ingested thin barium, thick barium, barium pudding, and barium coated cracker. FLUOROSCOPY TIME: 5:18 minutes/seconds. [id number] fluoroscopic images were obtained. RADIOLOGIST INVOLVEMENT: Radiologist was present and providing direct supervision. COMPARISON: None. FINDINGS: The following was observed during swallowing of the various mixtures of barium: Thin Barium: Silent aspiration with ingestion of thin liquids. Thick Barium: Penetration with ingestion of nectar thickened and honey thickened liquids. Barium Pudding: There was no evidence of aspiration or laryngeal penetration. Barium Coated Cracker: There was no evidence of aspiration or laryngeal penetration. Tertiary contractions of the esophagus. RAD/Swallowing Function w/Video IMPRESSION: Silent aspiration with ingestion of thin liquids. Penetration with ingestion of nectar and honey thickened liquids. The swallow study findings were discussed with the patient by the speech pathologist at the conclusion of the examination. Please see speech pathology report for more information and recommendations. Electronically Signed: Cuba Hilton MD at 15:45 EST , Service support ,
--- NOTE | 2018-06-11 15:37 | NURSING ---
LABS REVIEWED BY DR MCNALLY-[facility].
--- NOTE | 2018-06-11 16:02 | SP.MBSS_ITS ---
PRIMARY / SECONDARY DIAGNOSIS: dysphagia (R13.10) REFERRING PHYSICIAN: Dr. Ravinder Ellis MD CURRENT DIET: regular textures, nectar thickened liquids DENTITION: WFL MENTAL STATUS: sufficient for participation RESPIRATORY STATUS: O2 via room air PREVIOUS MODIFIED BARIUM SWALLOW STUDY: none REASON FOR REFERRAL: Patient is a 78 year old male referred for a modified barium swallow (MBS) study to objectively assess the Patients oropharyngeal swallow function under fluoroscopy to objectively assess the Patient?s oropharyngeal swallow function, with suspected silent aspiration reported during clinical trials. ADDITIONAL OBJECTIVE ASSESSMENT RESULTS: 02/27/2016 MRI revealed an acute focal deep white matter infarct measuring approximately 0.6 cm in the posterior centrum semiovale on the left; old lacunar infarcts associated with the putamen on the left and also the head of the caudate nucleus on the left; old small lacunar infarct associated with the left thalamus 05/31/2018 CT revealed stable chronic involutional features and old infarcts of the brain; no acute intracranial process is evident; small old lacunar infarct of the right basal ganglia; moderate prominent old lacunar infarct of the left external capsule; small old lacunar infarcts of the thalami bilaterally. 06/01/2018 CXR revealed no acute cardiopulmonary process; gaseous distention of bowel in the upper abdomen is nonspecific. MEDICAL HISTORY: Cerebrovascular accident(s) involving the left posterior centrum semioval, left putamen, head of the left caudate nucleus, and left thalamus; vascular dementia, gastroesophageal reflux disease, Gerard's esophagus, mild intermittent asthma, debility, coronary artery disease, atherosclerosis of [place] coronary artery, status post percutaneous transluminal coronary angioplasty, cardiac catheterization, and angioplasty; hyperlipidemia, hypothyroidism, stage III chronic kidney disease, overactive bladder, nephrolithiasis, type II diabetes mellitus, depression STUDY FINDINGS: Patient participated in a Modified Barium Swallow (MBS) study on 06/11/2018. Dr. Hilton was the radiologist present for this evaluation. This study was recorded in the lateral view and images were sent to PACs for storage. The following consistencies were presented to this patient for analysis of oropharyngeal swallow function: thin liquids, nectar thickened liquids, honey thickened liquids pudding, and a regular textured, [place] cookie. Results of the MBS are as follows: PENETRATION / ASPIRATION SCALE (HALEY): 1 = does not enter airway 2 = enters airway/above vocal folds/ejected 3 = enters airway/above vocal folds/not ejected 4 = enters airway/contacts vocal folds/ejected 5 = enters airway/contacts vocal folds/not ejected 6 = enters airway/below vocal folds/ejected 7 = enters airway/below vocal folds/not ejected despite effort 8 = enters airway/below vocal folds/no effort VIDEOFLOROSCOPIC SCALE SCORE (HALEY): Grade I = aspiration of material that has penetrated into the laryngeal vestibule, intact cough reflex Grade II = aspiration < 10 % of the bolus, intact cough reflex Grade III = aspiration of < 10 % of the bolus, reduced cough reflex or aspiration of > 10 % of the bolus, intact cough reflex Grade IV = aspiration of > 10 % of the bolus, reduced cough reflex PENETRATION / ASPIRATION SCALE (SCORE) WITH VIDEOFLOROSCOPIC SCALE SCORE: Thin liquid - 5 mL tsp.: 1 Thin liquids via cup (single sip): 3 Thin liquids via cup (single sip): 8 ? Grade IV [place] thickened liquids via cup (single sip): 3 [place] thickened liquids via cup (single sip): 3 [place] thickened liquids via cup (chin tuck): 2 [place] thickened liquids via cup (chin tuck): 3 [place] thickened liquids via cup (chin tuck): 2 [place] thickened liquids via cup (single sip): 5 Honey thickened liquids via cup (single sip): 2 Honey thickened liquids via cup (single sip): 8 ? Grade IV Pudding via spoon: 1 Pudding via spoon: 1 Regular textured cookie: 1 IMPRESSION: DIAGNOSIS: moderate to severe oropharyngeal dysphagia (R13.12) Dysphagia Severity Rating Scale (DSRS): 5 (mild to moderate) ORAL PHASE CHARACTERIZED BY: LABIAL SEAL: no labial escape TONGUE CONTROL DURING BOLUS MANIPULATION: posterior escape of less than half of bolus BOLUS PREPARATION / MASTICATION: slow prolonged chewing/mashing with complete recollection BOLUS TRANSPORT / LINGUAL MOTION: repetitive/disorganized tongue motion ORAL RESIDUE: residue collection on oral structures PHARYNGEAL PHASE CHARACTERIZED BY: INITIATION OF PHARYNGEAL SWALLOW: bolus head in pyriforms at first hyoid excursion SOFT PALATE ELEVATION: trace column of contrast/air between soft palate and pharyngeal wall LARYNGEAL ELEVATION: partial superior movement of thyroid cartilage/partial approximation of arytenoids cartilage to epiglottic petiole ANTERIOR HYOID EXCURSION: partial anterior movement EPIGLOTTIC MOVEMENT: partial epiglottic inversion LARYNGEAL VESTIBULE CLOSURE AT HEIGHT OF SWALLOW: incomplete laryngeal vestibule closure with narrow column of air/contrast in laryngeal vestibule PHARYNGEAL STRIPPING WAVE: pharyngeal stripping wave present / diminished PHARYNGOESOPHAGEAL SEGMENT OPENING: partial distension and partial duration; partial obstruction of flow TONGUE BASE RETRACTION: narrow column of contrast between tongue base and posterior pharyngeal wall PHARYNGEAL RESIDUE: collection of residue within or on pharyngeal structures ESOPHAGEAL PHASE CHARACTERIZED BY: ESOPHAGEAL BOLUS CLEARANCE IN THE UPRIGHT POSITION: esophageal retention with retrograde flow below pharyngoesophageal segment (PES) EFFECTS OF TREATMENT STRATEGIES ATTEMPTED: Chin tuck posture = limited effectiveness Cough and reswallow = ineffective Reduced bolus size = limited effectiveness DIET TEXTURE RECOMMENDATIONS: Will recommend a mechanical soft textured, pudding thickened liquid diet. COMPENSATORY STRATEGIES RECOMMENDED: Direct supervision, reduced intake volume / rate of ingestion, liquids via spoon, seated upright at 90 degrees during PO intake, remain upright for 30- 60 minutes post meal (GERD precaution), medications crushed with purees. INTERPRETATION OF RESULTS: Patient presents with moderate to severe oropharyngeal dysphagia (DSRS: 5) with grade IV SILENT aspiration of thin and honey thickened liquids likely secondary to a combination of prior cerebrovascular accidents involving the left posterior centrum semioval, left putamen, head of the left caudate nucleus, and left thalamus; vascular dementia, and secondary presbyphagia, with abnormal esophageal phase findings. Oral preparatory phase marked by reduced rate of mastication with slight munching quality. Oral transportation phase marked by generalized slowing of transpiration with frequent premature posterior bolus loss across consistencies (particularly liquid consistencies); mild undulating vs. festinating movements with more viscous textures. Pharyngeal phase marked by consistent dyssynchrony and delay (typically between 3-5 seconds with more viscous textures, upwards of 11 seconds with purees) resulting in suboptimal bolus placement upon pharyngeal phase swallow onset and both preprandial and prandial penetration with inconsistent laryngeal vestibule pressure generated to facilitate complete laryngeal clearance in addition to silent grade IV aspiration of both thin and honey thickened liquids (noted post prandial cough around 20 seconds post aspiration event with honey thickened liquids). Mild pharyngeal dysmotility attributed to generalized reduction in pharyngeal phase pressure compounded by marked kyphosis, with kyphosis likely impacting pharyngeal synchrony as well. Esophageal phase marked by frequent and at times strong tertiary contractions complicating esophageal motility. Limited responsiveness to compensatory measures, with fluctuating benefit noted from bolus volume reduction and execution of the chin tuck posture, though this does not achieve a reasonable consistent level of benefit to recommend clinically. Very weak cough both volitionally and elicited upon delayed reaction that was unsuccessful to completely clear laryngotracheal aspiration (dystussia). RECOMMENDATIONS: Would strongly discourage advancement past pudding thickened liquids without completion of a repeat modified barium swallow study due to the extent of aspirate identified that was SILENT in nature. Recommend a repeat modified barium swallow study within 4-8 weeks (if clinically appropriate) to further assess the presence and extent of silent and overt aspiration prior to advancement to thin liquids. Would consider the Patient to be at HIGH risk of both dehydration and suboptimal caloric intake quantities / malnutrition given the extent of diet texture alterations recommended; will require careful and diligent monitoring. Would consider implementation of the Box Free Water Protocol (FFWP) following Patient and family education IF the Patient has the adequate level of supervision post discharge to continue implementation, as clinically recommended advancement to thin liquids prior to discharge is unlikely. Patient requires intensive skilled speech-language intervention targeting continued diet texture management; training and implementation of recommended compensatory strategies; training, implementation, and Patient education regarding implementation of the FFWP; Patient and caregiver education regarding post stroke dysphagia, and dysphagia associated with dementia and aging; and Patient / caregiver training targeting meal preparation / thickened liquid preparation if unable to advance to baseline diet textures prior to discharge. Would consider training and implementation of oropharyngeal strengthening exercises to facilitate improved oropharyngeal strength and coordination, though significant improvements are less likely due to the duration post cerebrovascular accident(s) and advanced age, though would proceed if desired to allow the Patient all available opportunity to improve oropharyngeal sufficiency. Would consider the Patients quality of life if the Patient and Patient?s family request advancement to less restrictive diet, with advancement recommended ONLY if all parties comprehend the severity of the Patient?s swallow deficits and concomitant medical complications associated with silent aspiration, otherwise a follow up Modified Barium Swallow study is indicated prior to advancement to less viscous liquids. ADDITIONAL COMMENTS/RECOMMENDATIONS: Results and recommendations were discussed with the Patient immediately following MBS completion, with the Patient verbalizing understanding and agreement with all recommendations and education provided. IMAGE COUNT: [id number] Luigi Travis M.A., CCC-TRAILER STEERER MBSImP Certified, LSVT Certified [facility] Speech-Language Pathology Department
--- NOTE | 2018-06-11 16:33 | CASEMGMT ---
Social Work Received completed medicaid application from resident spouse along with several supportive documents. Faxed Medicaid application to [employer]. Will continue to follow. SHAWN Oliveira, RENAY
[2018-06-11 17:20] VITALS: BP 115/58; PULSE 59; RESP 16; TEMP 36.2; O2SAT 99
[2018-06-11] MEDS: Donepezil HCl 10 MG Tablet PO (21:29)
[2018-06-12] MEDS: Ramipril 5 MG Capsule PO (05:40)
[2018-06-12] MEDS: Enoxaparin 40 MG/0.4 ML Syringe SC (05:40)
[2018-06-12] MEDS: Glucerna Shake 120 ML LIQUID PO ×4 (05:40→20:57)
[2018-06-12] MEDS: Polyethylene Glycol 3350 17 GM PACKET PO (05:40)
[2018-06-12] MEDS: Pioglitazone Hydrochloride 15 MG Tablet 30 MG PO (05:40)
[2018-06-12] MEDS: Senna/Docusate Sodium 1 Tablet PO ×2 (05:40→16:55)
[2018-06-12] MEDS: Escitalopram Oxalate 10 MG Tablet PO (05:40)
[2018-06-12] MEDS: Ezetimibe 10 MG Tablet PO (05:40)
[2018-06-12] MEDS: Menthol/Lanolin/Calamine/Znox 113 GM Tube 1 APPLIC TOPICAL ×2 (05:40→20:55)
[2018-06-12] MEDS: Aspirin E.C. 81 MG Tablet PO (07:47)
[2018-06-12 15:57] VITALS: BP 120/59; PULSE 52; RESP 14; TEMP 36.2; O2SAT 94
[2018-06-12] MEDS: Donepezil HCl 10 MG Tablet PO (20:57)
[2018-06-12] MEDS: Acetaminophen 500 MG Tablet 1000 MG PO (21:02)
[2018-06-12 21:05] VITALS: PULSE 59; O2SAT 96
[2018-06-13] MEDS: Polyethylene Glycol 3350 17 GM PACKET PO (06:04)
[2018-06-13] MEDS: Enoxaparin 40 MG/0.4 ML Syringe SC (06:05)
[2018-06-13] MEDS: Escitalopram Oxalate 10 MG Tablet PO (06:05)
[2018-06-13] MEDS: Menthol/Lanolin/Calamine/Znox 113 GM Tube 1 APPLIC TOPICAL ×2 (06:05→21:50)
[2018-06-13] MEDS: Ramipril 5 MG Capsule PO (06:05)
[2018-06-13] MEDS: Pioglitazone Hydrochloride 15 MG Tablet 30 MG PO (06:05)
[2018-06-13] MEDS: Glucerna Shake 120 ML LIQUID PO ×4 (06:05→21:49)
[2018-06-13] MEDS: Ezetimibe 10 MG Tablet PO (06:06)
[2018-06-13] MEDS: Senna/Docusate Sodium 1 Tablet PO ×2 (06:06→16:56)
[2018-06-13] MEDS: Aspirin E.C. 81 MG Tablet PO (07:27)
[2018-06-13] MEDS: Acetaminophen 500 MG Tablet 1000 MG PO (10:54)
[2018-06-13] MEDS: guaiFENesin Dm 10 ML UDC 5 ML PO (10:54)
--- NOTE | 2018-06-13 10:58 | NURSING ---
pt c/o sore throat, NO for respiratory panel
[2018-06-13 15:34] VITALS: BP 96/53; PULSE 56; RESP 16; TEMP 36.3; O2SAT 93
[2018-06-13] MEDS: Bisacodyl 5 MG Tablet 10 MG PO (16:37)
[2018-06-13] MEDS: BENZOCAINE/MENTHOL 1 LOZENGE MUCOUS MEM (18:48)
[2018-06-13] MEDS: Donepezil HCl 10 MG Tablet PO (21:48)
--- NOTE | 2018-06-14 00:35 | NURSING ---
Patient continues to be on droplet precautions. Patient tested for RSV-B 06/13/18. All care is provided to patient in room.
[2018-06-14] MEDS: Glucerna Shake 120 ML LIQUID PO ×4 (05:53→21:48)
[2018-06-14] MEDS: Senna/Docusate Sodium 1 Tablet PO (05:54)
[2018-06-14] MEDS: Enoxaparin 40 MG/0.4 ML Syringe SC (05:54)
[2018-06-14] MEDS: Polyethylene Glycol 3350 17 GM PACKET PO (05:54)
[2018-06-14] MEDS: Ezetimibe 10 MG Tablet PO (05:54)
[2018-06-14] MEDS: Escitalopram Oxalate 10 MG Tablet PO (05:55)
[2018-06-14] MEDS: Pioglitazone Hydrochloride 15 MG Tablet 30 MG PO (05:55)
[2018-06-14] MEDS: Menthol/Lanolin/Calamine/Znox 113 GM Tube 1 APPLIC TOPICAL ×2 (05:55→21:50)
[2018-06-14] MEDS: Ramipril 5 MG Capsule PO (05:55)
[2018-06-14] MEDS: Aspirin E.C. 81 MG Tablet PO (08:57)
[2018-06-14 10:28] VITALS: BP 102/68; PULSE 74; RESP 18; TEMP 36.6; O2SAT 95
--- NOTE | 2018-06-14 10:30 | NURSING ---
Pt c/o feeling dizzy. Per therapy, pt had a liquid BM. Pt assessed in chair, denies feeling dizzy at this time. Vital signs assessed, stable. Water encouraged. Resting comfortably in chair, PA in place and call light in reach. Will cont to monitor.
--- NOTE | 2018-06-14 11:09 | NURSING ---
Pt remains in isolation precautions. All care and therapy completed in room.
--- NOTE | 2018-06-14 12:03 | CASEMGMT ---
Insurance Clinical information sent. Pending continued stay approval. Auth#[id number] Scout ESCOBAR, RENAY
--- NOTE | 2018-06-14 12:43 | CHAPLAIN ---
Type of Pastoral Visit ___ Initial Visit _x__ Follow-up Visit ___ On-call Visit ___ General Patient Visit ___ Spiritual Assessment ___ Family Conference ___ Bereavement ___ Rapid Response ___ Code Blue ___ Other (describe below) Pastoral Care Referral From _x__ Patient ___ Family ___ Nurse ___ Physician ___ House Decorator ___ Soap Press Feeder ___ Other (describe below) Sacrament/Intervention _x__ Active listening ___ Anointing ___ Holiness ___ Bereavement ___ Communion ___ Zenia exploration ___ ___ Life review _x__ Prayer ___ Reconciliation ___ Sacrament of Sick _x_ Supportive presence ___ Wedding ___ Other (describe below) Pastoral Comments patient remembers who this financial planning consultant is;
[2018-06-14 15:25] VITALS: BP 110/46; PULSE 63; RESP 18; TEMP 35.9; O2SAT 94
[2018-06-14] MEDS: Donepezil HCl 10 MG Tablet PO (21:50)
--- NOTE | 2018-06-15 02:13 | NURSING ---
Pt remains in isolation precautions. All care provided in room.
[2018-06-15] MEDS: guaiFENesin Dm 10 ML UDC 5 ML PO (03:32)
[2018-06-15] MEDS: Menthol/Lanolin/Calamine/Znox 113 GM Tube 1 APPLIC TOPICAL ×2 (03:32→20:25)
[2018-06-15] MEDS: Ramipril 5 MG Capsule PO (04:55)
[2018-06-15] MEDS: Escitalopram Oxalate 10 MG Tablet PO (04:55)
[2018-06-15] MEDS: Glucerna Shake 120 ML LIQUID PO ×4 (04:55→20:25)
[2018-06-15] MEDS: Ezetimibe 10 MG Tablet PO (04:55)
[2018-06-15] MEDS: Pioglitazone Hydrochloride 15 MG Tablet 30 MG PO (04:55)
[2018-06-15] MEDS: Enoxaparin 40 MG/0.4 ML Syringe SC (04:56)
[2018-06-15] MEDS: Aspirin E.C. 81 MG Tablet PO (07:50)
--- NOTE | 2018-06-15 08:27 | CASEMGMT ---
Insurance Continued stay denied by insurance with last cover day being 06/17/18 and resident to discharge or financial responsibility to begin on 06/18/18. Auth#[id number] Scout ESCOBAR, RENAY
--- NOTE | 2018-06-15 09:02 | CASEMGMT ---
Social Work Telephone call to resident spouse, Beryl. This older adult social work specialist notifying Beryl of continued stay denial by insurance with last cover day being 06/17/18 and resident to discharge or financial responsibility to begin on 06/18/18. Beryl voicing understanding and planning to meet with this older adult social work specialist at 2:00pm to discuss discharge plan/options further. Support given. Proposed discharge date: 06/18/18 PLAN: Undetermined at this time - home with spouse vs. ECF. Scout ESCOBAR, RENAY
--- NOTE | 2018-06-15 14:04 | CASEMGMT ---
Addendum entered by Carrie Eli 06/15/18 14:22: Reviewed and approved social work student documentation. Scout Eli PHYSICAL EDUCATION SPECIALIST, C SOFTWARE DEVELOPER Original Note: Brief interview for mental status (BIMS) and mood (PHQ-9) completed on this day. BIMS score 10/09. PHQ-9 score 06/23. Christin Pedraza social work student
--- NOTE | 2018-06-15 14:29 | CASEMGMT ---
Social Work Met with resident family. Resident family wanting to appeal insurance denial. This social services explaining appeal process. Resident spouse planning to initiate appeal. Resident family reporting that discharge plan is for resident to discharge to home with spouse, in the event that the appeal is lost. Resident family meeting with hospice this afternoon around 3:30pm to see if resident would qualify for hospice services within the home. Resident family reporting that all medical equipment needs are already met within the home. Resident spouse reporting that direction home Shimon Holder contacted resident spouse to set up a time to meet on 06/22/18 to assess resident for PASSPORT services. Jeny from [employer] notified that at this time resident is planning to discharge to home with spouse but would like to continue the process of the medicaid application in the event that home does not work and resident will need to transition to a retirement. Support given. Proposed discharge date: 06/18/18 pending appeal. PLAN: Discharge to home with spouse and possible hospice pending outcome of appeal. Scout Eli MSW, RENAY
--- NOTE | 2018-06-15 14:59 | CASEMGMT ---
Social Work Telephone call from [employer]. Case#[id number]. Appeal being processed at this time. Scout Eli CATEGORY CONSULTANT, RENAY
[2018-06-15 15:06] VITALS: BP 90/40; PULSE 70; RESP 18; TEMP 35.7; O2SAT 97
[2018-06-15] MEDS: Donepezil HCl 10 MG Tablet PO (20:25)
--- NOTE | 2018-06-15 21:10 | DCINST_ITS ---
- Discharge Diagnoses Current Active Problems: Current Active and Chronic Problems (Last Reviewed 06/09/18 @ 17:22 by Nico Ordoñez MD) Encephalopathy (Acute) Community acquired pneumonia (Acute) Stroke (Chronic) Diabetes mellitus (Chronic) Chronic kidney disease (Chronic) Asthma (Chronic) You will use the following diet at home:: No restrictions, Regular Your food should be the consistency of: Regular Your liquids should be the consistency of: Regular/Thin Discharge Activity: Return to Normal Activity, May Shower, Use Walker Weight Bearing Status: Weight bearing as tolerated Call your doctor if you observe: Fever of 101 or Higher, Inability to urinate, Inability to have a bowel movement, Shortness of breath, Chest pain, Uncontrolled pain Allergies/Adverse Reactions: Allergies iodine Allergy (Verified 05/31/18 11:49) Hives Penicillins Allergy (Verified 05/31/18 15:47) Rash Medications to take at Discharge Aspirin E.C. [Ecotrin] 81 mg PO DAILY@0800 09/15/13 Escitalopram Oxalate [Lexapro] 10 mg PO DAILY 09/15/13 Pioglitazone [Actos] 30 mg PO DAILY 09/15/13 Donepezil HCl [Aricept] 10 mg PO QHS 02/27/16 Ezetimibe [Zetia] 10 mg PO DAILY 04/30/18 Ramipril 5 mg PO DAILY 05/31/18 Glucerna Shake 120 ml PO 4X/DAY 06/03/18 Acetaminophen [Tylenol] 1,000 mg PO Q6H PRN PRN tablet 06/15/18 Guaifenesin Dm [Robitussin Dm] 5 ml PO Q6H PRN PRN udc 06/15/18 Menthol/Lanolin/Calamine/Znox [Calmoseptine Ointment] 1 applic TOPICAL 0600,2200 tube 06/15/18 Mineral Oil/Petrolatum,White [Eucerin] 1 applic TOPICAL QHS jar 06/15/18 Primary Care Physician: Daiana Andrew NP-C [Primary Care Provider] - Please follow up with your Primary Care Physician in: 1 week. Test Results: Test results from this visit will be discussed in further detail at your follow- up appointment, if applicable. Proposed Discharge Date: 06/18/18
--- NOTE | 2018-06-15 21:15 | DS.PCM_ITS ---
Discharge Date and Diagnosis - Problem List Patient Problems: Active and Suspected Problems (Last Reviewed 06/09/18 @ 17:22 by Nico Ordoñez MD) Encephalopathy (Acute) Community acquired pneumonia (Acute) Date of Admission: 06/03/18 Date of Discharge: 06/18/18 - Primary Discharge Diagnosis Active and Suspected Problems (Last Reviewed 06/09/18 @ 17:22 by Nico Ordoñez MD) Encephalopathy (Acute) Community acquired pneumonia (Acute) - Secondary Discharge Diagnosis Chronic Problems (Last Reviewed 06/09/18 @ 17:22 by Nico Ordoñez MD) Debility (Chronic) Vascular dementia (Chronic) Coronary artery disease (Chronic) Hyperlipidemia (Chronic) Hypothyroidism (Chronic) Depression (Chronic) Overactive bladder (Chronic) Stroke (Chronic) Diabetes mellitus (Chronic) Chronic kidney disease (Chronic) Asthma (Chronic) History of CVA (cerebrovascular accident) (Chronic) Atherosclerosis of [place] coronary artery of [place] heart without angina pectoris (Chronic) MACIAS to LAD, aortocoronary left radial artery to obtuse marginal artery, SVG to PDA; GERD (gastroesophageal reflux disease) (Chronic) History of angioplasty (Chronic 11/06/89) Angioplasty and stenting to 70% stenosis in proximal LAD, angioplasty and stenting to proximal diagonal LAD at bifurcation, and atherectomy and stenting to 80% stenosis in mid first diagonal artery in April 2011. 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) MACIAS to LAD, aortocoronary left radial artery to obtuse marginal artery, SVG to PDA H/O percutaneous transluminal coronary angioplasty (Chronic ~05/13/11) stent to diagonal 1 History of cardiac catheterization (Chronic ~03/2002) 03/28,06/28 DM2 (diabetes mellitus, type 2) (Chronic) CKD (chronic kidney disease) stage 3, GFR 30-59 ml/min (Chronic) Mild intermittent asthma (Chronic) Nephrolithiasis (Chronic) Hospital Course and Treatment Imaging Results: 06/03/18 17:29 Diet: Regular Diet Food consistency:: Regular Liquid Consistency:: Regular/Thin Is pt able to select menu?: No Diet Comments: Direct supervision; seated upright in chair. 06/15/18 23:55 NPO [Diet: Nothing Per Oral] Is pt able to select menu?: No Diet Comments: supervision Clinical Impression(s) from Imaging Studies Videofluoroscopic Swallow 06/11/18 13:00 IMPRESSION: Silent aspiration with ingestion of thin liquids. Penetration with ingestion of nectar and honey thickened liquids. The swallow study findings were discussed with the patient by the speech pathologist at the conclusion of the examination. Please see speech pathology report for more information and recommendations. Electronically Signed: Cuba Hilton MD at 15:45 EST , Service support , Operations: None Procedures: None Summary of Care Provided: The patient is a 78 year old Male with below past medical history hospitalized for acute delirium secondary to RSV B infection, complicated by right ureteral stone, acute kidney injury, admitted to TCU with debility, here for rehabilitation, strengthening, prior to discharge home with spouse. On TCU, respiratory panel continues to be positive for RSV B. Speech therapy performed modified barium swallow, resident silently aspirating. Resident on regular/thin liquid diet for comfort. His risk of aspiration pneumonitis is high. 06/15/2018 Dr. Ordoñez removed right ureteral stent. I discussed with resident spouse, resident daughter, that resident's lifespan is short. His combination of vascular dementia, dysphagia, means his lifespan is < 6 months. Discharge home with spouse, and hospice pending appeal. Patient Problems: Active and Suspected Problems (Last Reviewed 06/09/18 @ 17:22 by Nico Ordoñez MD) Encephalopathy (Acute) Community acquired pneumonia (Acute) - Physical Exam Vital Signs Temp Pulse Resp BP Pulse Ox 96.3 F L 70 18 90/40 L 97 06/15/18 15:06 06/15/18 15:06 06/15/18 15:06 06/15/18 15:06 06/15/18 15:06 Oxygen Delivery Method Room Air Weight: 78.982 kg Body Mass Index (BMI) 25.5 Finger Stick Blood Glucose 103 Intake and Output for Last 24 Hours 06/13/18 06/14/18 06/15/18 23:59 23:59 23:59 Intake Total 840 / 840 540 / 540 580 / 580 Balance 840 / 840 540 / 540 580 / 580 Microbiology Past 72 Hours 06/13/18 13:20 Respiratory Panel (PCR) - Final Mucosa - Nasopharyngeal RSV B Discharge Diet: No Restrictions Discharge Activity: Return to Normal Activity, May Shower, Use Walker Weight Bearing Status: Weight bearing as tolerated Call your doctor if you observe: Fever of 101 or Higher, Inability to urinate, Inability to have a bowel movement, Shortness of breath, Chest pain, Uncontrolled pain Home Medications: Medications to take at Discharge Aspirin E.C. [Ecotrin] 81 mg PO DAILY@0800 09/15/13 Escitalopram Oxalate [Lexapro] 10 mg PO DAILY 09/15/13 Pioglitazone [Actos] 30 mg PO DAILY 09/15/13 Donepezil HCl [Aricept] 10 mg PO QHS 02/27/16 Ezetimibe [Zetia] 10 mg PO DAILY 04/30/18 Ramipril 5 mg PO DAILY 05/31/18 Glucerna Shake 120 ml PO 4X/DAY 06/03/18 Acetaminophen [Tylenol] 1,000 mg PO Q6H PRN PRN tablet 06/15/18 Guaifenesin Dm [Robitussin Dm] 5 ml PO Q6H PRN PRN udc 06/15/18 Menthol/Lanolin/Calamine/Znox [Calmoseptine Ointment] 1 applic TOPICAL 0600,2200 tube 06/15/18 Mineral Oil/Petrolatum,White [Eucerin] 1 applic TOPICAL QHS jar 06/15/18 Primary Care Physician: Daiana Andrew NP-C [Primary Care Provider] - Please follow up with your Primary Care Physician in: 1 week. Disposition: Home with Hospice Minutes spent on discharge:: 35 Patient Condition:: Poor Medical Necessity - Tobacco Use Smoking Status: Former smoker Tobacco Use: Non-smoker Meaningful Use Info Meaningful Use Diagnoses (Choose all that apply): None applicable
--- NOTE | 2018-06-16 00:29 | NURSING ---
All care provided in room d/t pt in isolation for RSV.
[2018-06-16] MEDS: Ramipril 5 MG Capsule PO (05:48)
--- NOTE | 2018-06-16 08:39 | CASEMGMT ---
Social Work Telephone call from [facility], resident/resident family signing for hospice services at time of discharge. Will continue to follow. Scout ESCOBAR, RENAY
--- NOTE | 2018-06-16 14:09 | MDS.RN ---
Information for the mds was obtained from review of the clinical record, interview of resident, staff, and direct observation of resident's care.
[2018-06-16 16:00] VITALS: BP 108/45; PULSE 78; RESP 18; TEMP 35.8; O2SAT 95
--- NOTE | 2018-06-16 18:03 | NURSING ---
Pt returned from procedure. Awake and alert. Was incontinent of urine. NO to encourage PO fluid intake, if unable to pee for over 8 hours ,notify Dr. Ordoñez. F/u in 2 weeks.
[2018-06-16] MEDS: Acetaminophen 500 MG Tablet 1000 MG PO (18:37)
[2018-06-16] MEDS: Menthol/Lanolin/Calamine/Znox 113 GM Tube 1 APPLIC TOPICAL (20:19)
[2018-06-16] MEDS: Donepezil HCl 10 MG Tablet PO (20:20)
[2018-06-16] MEDS: Glucerna Shake 120 ML LIQUID PO (20:20)
--- NOTE | 2018-06-16 22:39 | NURSING ---
String from operative procedure noted be 24.5cm long from tip of penis. Will continue to monitor and asses.
[2018-06-17] MEDS: Ezetimibe 10 MG Tablet PO (03:44)
[2018-06-17] MEDS: Senna/Docusate Sodium 1 Tablet PO ×2 (03:44→16:43)
[2018-06-17] MEDS: Acetaminophen 500 MG Tablet 1000 MG PO ×3 (03:45→22:13)
[2018-06-17] MEDS: guaiFENesin Dm 10 ML UDC 5 ML PO (03:45)
[2018-06-17] MEDS: Glucerna Shake 120 ML LIQUID PO ×4 (03:45→22:10)
[2018-06-17] MEDS: Polyethylene Glycol 3350 17 GM PACKET PO (03:45)
[2018-06-17] MEDS: Escitalopram Oxalate 10 MG Tablet PO (03:45)
[2018-06-17] MEDS: Menthol/Lanolin/Calamine/Znox 113 GM Tube 1 APPLIC TOPICAL ×2 (03:45→22:05)
[2018-06-17] MEDS: Pioglitazone Hydrochloride 15 MG Tablet 30 MG PO (03:45)
[2018-06-17] MEDS: Ramipril 5 MG Capsule PO (03:45)
--- NOTE | 2018-06-17 04:46 | NURSING ---
Pt with hematuria from procedure, will address with Dr Ellis prior to Lovenox administration.
[2018-06-17] MEDS: Aspirin E.C. 81 MG Tablet PO (07:56)
--- NOTE | 2018-06-17 08:54 | CASEMGMT ---
Social Work Telephone celeste from [facility]. Resident won appeal. Resident to continue with stay at this time. Resident spouse aware per [facility], this group social worker leaving voicemail for resident spouse communicating above information. Will continue to follow. Scout ESCOBAR, RENAY
--- NOTE | 2018-06-17 12:01 | CASEMGMT ---
Insurance Next update due on 06/21/18. Auth#[id number] Scout ESCOBAR, RENAY
[2018-06-17 15:50] VITALS: BP 118/61; PULSE 67; RESP 18; TEMP 36.1; O2SAT 95
[2018-06-17] MEDS: Donepezil HCl 10 MG Tablet PO (22:08)
[2018-06-18] MEDS: Ezetimibe 10 MG Tablet PO (05:23)
[2018-06-18] MEDS: Senna/Docusate Sodium 1 Tablet PO ×2 (05:23→17:03)
[2018-06-18] MEDS: Bisacodyl 5 MG Tablet 10 MG PO (05:24)
[2018-06-18] MEDS: Ramipril 5 MG Capsule PO (05:24)
[2018-06-18] MEDS: Pioglitazone Hydrochloride 15 MG Tablet 30 MG PO (05:24)
[2018-06-18] MEDS: Escitalopram Oxalate 10 MG Tablet PO (05:24)
[2018-06-18] MEDS: Polyethylene Glycol 3350 17 GM PACKET PO (05:24)
[2018-06-18] MEDS: Glucerna Shake 120 ML LIQUID PO ×4 (05:24→22:08)
[2018-06-18] MEDS: Menthol/Lanolin/Calamine/Znox 113 GM Tube 1 APPLIC TOPICAL ×2 (05:24→22:08)
[2018-06-18 05:51] LABS: Absolute Lymphocyte Count 1.63 X10^3/ul (0.83-4.51); Absolute Neutrophil Count 5.1 X10^3/uL (2.0-7.7); Basophil# 0.02 X10^3/uL; Basophil% 0.3 % (0-1); Eosinophil# 0.31 X10^3/uL; Hematocrit 38.6 % (40-54); Lymphocyte # 1.63 X10^3/ul (4.0); Lymphocyte % 20.8 % (19-41); Mean Corp Hgb Conc 31.1 g/gl (32-36); Mean Corpuscular Hgb 29.1 pg (27.0-32.0); Mean Corpuscular Volume 93.5 fL (80-94); Mean Platelet Vol. 10.8 fl (6.2-12.0); Monocyte# 0.79 X10^3/uL; Monocyte% 10.1 % (0-10); Neutrophil # 5.07 X10^3/uL (2.7-7.7); Neutrophil % 64.7 % (47-70); Platelet Count 175 K/mm3 (150-450); RBC Distribution Width CV 15.1 % (11.6-14.6); RBC Distribution Width SD 49.6 fl (35.1-43.9); Red Blood Count 4.13 M/mm3 (4.6-6.2); White Blood Count 7.8 K/mm3 (4.4-11.0)
[2018-06-18 05:57] LABS: POSITIVE COUNT NO; POSITIVE DIFFERENTIAL NO; POSITIVE MORPHOLOGY NO
[2018-06-18 06:11] LABS: Anion Gap 7 (5-15); BUN 22 mg/dL (7-18); BUN/Creat Ratio 16.7 RATIO (10-20); Calcium,Total 8.1 mg/dL (8.5-10.1); Chloride 109 mmol/L (98-107); Creatinine, Serum 1.32 mg/dL (0.70-1.30); EST Glomerular Filtration Rate 56 mL/min (>60); Est Glom Filt Rate - Afr Amer 67 mL/min (>60); Estimated Creatinine Clearance 48.33 ml/min; Glucose 85 mg/dL (74-106); Potassium 4.6 mmol/L (3.5-5.1); Sodium Level 142 mmol/L (136-145)
[2018-06-18] MEDS: Aspirin E.C. 81 MG Tablet PO (08:37)
--- NOTE | 2018-06-18 08:51 | NURSING ---
Pt remains in isolation precautions, all therapy and treatments provided in pt room
[2018-06-18] MEDS: Acetaminophen 500 MG Tablet 1000 MG PO ×2 (10:15→17:04)
[2018-06-18 15:24] VITALS: BP 112/55; PULSE 80; RESP 16; TEMP 36.1; O2SAT 97
[2018-06-18] MEDS: Donepezil HCl 10 MG Tablet PO (22:08)
[2018-06-18 22:39] VITALS: RESP 16
[2018-06-19] MEDS: Pioglitazone Hydrochloride 15 MG Tablet 30 MG PO (05:09)
[2018-06-19] MEDS: Escitalopram Oxalate 10 MG Tablet PO (05:09)
[2018-06-19] MEDS: Polyethylene Glycol 3350 17 GM PACKET PO (05:10)
[2018-06-19] MEDS: Ramipril 5 MG Capsule PO (05:10)
[2018-06-19] MEDS: Menthol/Lanolin/Calamine/Znox 113 GM Tube 1 APPLIC TOPICAL ×2 (05:10→22:21)
[2018-06-19] MEDS: Senna/Docusate Sodium 1 Tablet PO ×2 (05:10→16:55)
[2018-06-19] MEDS: Ezetimibe 10 MG Tablet PO (05:10)
[2018-06-19] MEDS: Glucerna Shake 120 ML LIQUID PO ×4 (05:11→22:20)
[2018-06-19] MEDS: Aspirin E.C. 81 MG Tablet PO (10:07)
--- NOTE | 2018-06-19 10:35 | NURSING ---
Pt remains in isolation precautions this shift, all therapy, nursing care, and treatments provided in pt room
[2018-06-19 16:00] VITALS: BP 100/63; PULSE 82; RESP 18; TEMP 36.3; O2SAT 91
--- NOTE | 2018-06-19 17:52 | NURSING ---
Patient's asking about new medication ordered by Dr. Ordoñez after surgery on Thursday. Per Dr. Ordoñez's discharge instructions, patient has order for Cipro 500mg PO BID x 7 days. Order initiated.
[2018-06-19] MEDS: Ciprofloxacin 500 MG Tablet PO (22:20)
[2018-06-19] MEDS: Donepezil HCl 10 MG Tablet PO (22:20)
[2018-06-20] MEDS: Glucerna Shake 120 ML LIQUID PO ×4 (05:25→21:02)
[2018-06-20] MEDS: Ezetimibe 10 MG Tablet PO (05:25)
[2018-06-20] MEDS: Menthol/Lanolin/Calamine/Znox 113 GM Tube 1 APPLIC TOPICAL ×2 (05:26→21:02)
[2018-06-20] MEDS: Escitalopram Oxalate 10 MG Tablet PO (05:26)
[2018-06-20] MEDS: Ciprofloxacin 500 MG Tablet PO ×2 (05:26→17:28)
[2018-06-20] MEDS: Ramipril 5 MG Capsule PO (05:26)
[2018-06-20] MEDS: Senna/Docusate Sodium 1 Tablet PO ×2 (05:26→17:28)
[2018-06-20] MEDS: Pioglitazone Hydrochloride 15 MG Tablet 30 MG PO (05:27)
--- NOTE | 2018-06-20 05:35 | NURSING ---
Pt remains in isolation precautions. All care provided in room.
[2018-06-20] MEDS: Aspirin E.C. 81 MG Tablet PO (08:54)
[2018-06-20] MEDS: BENZOCAINE/MENTHOL 1 LOZENGE MUCOUS MEM (08:57)
[2018-06-20 10:00] VITALS: PULSE 67; RESP 16
--- NOTE | 2018-06-20 12:27 | NURSING ---
Pt remains in isolation precautions. All care provided in room.
[2018-06-20 15:20] VITALS: BP 121/61; PULSE 59; RESP 18; TEMP 36.4; O2SAT 97
[2018-06-20] MEDS: Donepezil HCl 10 MG Tablet PO (21:02)
[2018-06-21] MEDS: Menthol/Lanolin/Calamine/Znox 113 GM Tube 1 APPLIC TOPICAL ×2 (06:06→20:13)
--- NOTE | 2018-06-21 06:06 | NURSING ---
Pt remains in isolation precautions. All care provided in room.
[2018-06-21] MEDS: Ramipril 5 MG Capsule PO (06:07)
[2018-06-21] MEDS: Glucerna Shake 120 ML LIQUID PO ×4 (06:07→20:13)
[2018-06-21] MEDS: Senna/Docusate Sodium 1 Tablet PO ×2 (06:07→16:45)
[2018-06-21] MEDS: Ciprofloxacin 500 MG Tablet PO ×2 (06:07→16:44)
[2018-06-21] MEDS: Pioglitazone Hydrochloride 15 MG Tablet 30 MG PO (06:07)
[2018-06-21] MEDS: Ezetimibe 10 MG Tablet PO (06:07)
[2018-06-21] MEDS: Escitalopram Oxalate 10 MG Tablet PO (06:07)
[2018-06-21] MEDS: Aspirin E.C. 81 MG Tablet PO (07:40)
--- NOTE | 2018-06-21 10:33 | NURSING ---
Pt remains in isolation precautions, all therapy and treatments provided in pt room
--- NOTE | 2018-06-21 11:38 | CASEMGMT ---
Insurance Clinical information sent. Pending continued stay approval. Auth#[id number] Scout ESCOBAR, RENAY
[2018-06-21 15:55] VITALS: BP 118/58; PULSE 70; RESP 16; TEMP 36.7; O2SAT 94
[2018-06-21 17:05] LABS: Bedside Glucose 190 mg/dL (70-110)
--- NOTE | 2018-06-21 17:07 | NURSING ---
Up to bathroom to urinate with therapy. Therapy reports no blood noted in the urine. Will resume Lovenox.
[2018-06-21] MEDS: Acetaminophen 500 MG Tablet 1000 MG PO (17:34)
[2018-06-21] MEDS: Donepezil HCl 10 MG Tablet PO (20:13)
--- NOTE | 2018-06-21 23:15 | NURSING ---
All care provided to pt in room d/t isolation precautions for RSV.
[2018-06-22] MEDS: Escitalopram Oxalate 10 MG Tablet PO (05:24)
[2018-06-22] MEDS: Menthol/Lanolin/Calamine/Znox 113 GM Tube 1 APPLIC TOPICAL ×2 (05:24→20:28)
[2018-06-22] MEDS: Acetaminophen 500 MG Tablet 1000 MG PO (05:24)
[2018-06-22] MEDS: Glucerna Shake 120 ML LIQUID PO ×4 (05:24→20:33)
[2018-06-22] MEDS: Pioglitazone Hydrochloride 15 MG Tablet 30 MG PO (05:24)
[2018-06-22] MEDS: Ciprofloxacin 500 MG Tablet PO ×2 (05:24→17:32)
[2018-06-22] MEDS: Ezetimibe 10 MG Tablet PO (05:24)
[2018-06-22] MEDS: Polyethylene Glycol 3350 17 GM PACKET PO (05:24)
[2018-06-22] MEDS: Senna/Docusate Sodium 1 Tablet PO ×2 (05:24→17:32)
[2018-06-22] MEDS: Enoxaparin 40 MG/0.4 ML Syringe SC (05:25)
[2018-06-22] MEDS: Ramipril 5 MG Capsule PO (05:25)
[2018-06-22] MEDS: Aspirin E.C. 81 MG Tablet PO (08:12)
--- NOTE | 2018-06-22 08:12 | NURSING ---
Addendum entered by Daiana Forrest 06/22/18 08:36: Abdifatah, removed pt from isolation this AM. housekeeping and staff notified. Original Note: Pt remains in isolation, all therapy and treatments provided in pt room
--- NOTE | 2018-06-22 12:34 | CASEMGMT ---
Insurance Continued stay denied with last cover day being 06/24/18 and resident to discharge or financial responsibility to begin on 06/25/18. Auth#[id number] Scout ESCOBAR, RENAY
[2018-06-22 15:20] VITALS: BP 95/57; PULSE 59; RESP 18; TEMP 36; O2SAT 97
--- NOTE | 2018-06-22 16:03 | CASEMGMT ---
Social Work Spoke with resident and resident family in room. This pediatric social worker communicating that continued stay has been denied by insurance with a last cover day of 06/24/18 and resident to discharge or financial responsibility to begin on 06/25/18. Resident and resident family choosing to discharge to home on 06/25/18 with hospice services through [facility]. Resident family plans to provide transportation home for resident at time of discharge. Support given. [facility] to [facility]. This pediatric social worker communicating discharge date and plan. Will fax discharge information when obtained. Proposed discharge date: 06/25/18 PLAN: Discharge to home with spouse and hospice services. Scout Eli MSW, RENAY
[2018-06-22] MEDS: Donepezil HCl 10 MG Tablet PO (20:28)
[2018-06-23] MEDS: Glucerna Shake 120 ML LIQUID PO ×4 (04:54→20:03)
[2018-06-23] MEDS: Pioglitazone Hydrochloride 15 MG Tablet 30 MG PO (04:54)
[2018-06-23] MEDS: Senna/Docusate Sodium 1 Tablet PO ×2 (04:54→17:15)
[2018-06-23] MEDS: Ezetimibe 10 MG Tablet PO (04:54)
[2018-06-23] MEDS: Polyethylene Glycol 3350 17 GM PACKET PO (04:54)
[2018-06-23] MEDS: Enoxaparin 40 MG/0.4 ML Syringe SC (04:54)
[2018-06-23] MEDS: Menthol/Lanolin/Calamine/Znox 113 GM Tube 1 APPLIC TOPICAL ×2 (04:55→20:03)
[2018-06-23] MEDS: Escitalopram Oxalate 10 MG Tablet PO (04:55)
[2018-06-23] MEDS: Ciprofloxacin 500 MG Tablet PO ×2 (04:55→17:15)
[2018-06-23] MEDS: Ramipril 5 MG Capsule PO (04:55)
[2018-06-23] MEDS: Aspirin E.C. 81 MG Tablet PO (09:00)
--- NOTE | 2018-06-23 12:47 | CASEMGMT ---
Social Work Faxed discharge information to [facility]. Proposed discharge date: 06/25/18 PLAN: Discharge to home with spouse and hospice services. Scout ESCOBAR, RENAY
[2018-06-23 15:21] VITALS: BP 95/45; PULSE 60; RESP 18; TEMP 35.7; O2SAT 97
[2018-06-23] MEDS: Donepezil HCl 10 MG Tablet PO (20:03)
[2018-06-23] MEDS: Bisacodyl 5 MG Tablet 10 MG PO (20:07)
[2018-06-23] MEDS: Acetaminophen 500 MG Tablet 1000 MG PO (20:07)
[2018-06-24] MEDS: Polyethylene Glycol 3350 17 GM PACKET PO (05:06)
[2018-06-24] MEDS: Glucerna Shake 120 ML LIQUID PO ×3 (05:09→17:57)
[2018-06-24] MEDS: Senna/Docusate Sodium 1 Tablet PO (05:09)
[2018-06-24] MEDS: Ezetimibe 10 MG Tablet PO (05:09)
[2018-06-24] MEDS: Ciprofloxacin 500 MG Tablet PO ×2 (05:09→17:56)
[2018-06-24] MEDS: Menthol/Lanolin/Calamine/Znox 113 GM Tube 1 APPLIC TOPICAL (05:09)
[2018-06-24] MEDS: Pioglitazone Hydrochloride 15 MG Tablet 30 MG PO (05:09)
[2018-06-24] MEDS: Escitalopram Oxalate 10 MG Tablet PO (05:09)
[2018-06-24] MEDS: Enoxaparin 40 MG/0.4 ML Syringe SC (05:10)
[2018-06-24] MEDS: Ramipril 5 MG Capsule PO (05:10)
[2018-06-24] MEDS: Aspirin E.C. 81 MG Tablet PO (08:15)
--- NOTE | 2018-06-24 13:55 | CASEMGMT ---
Brief interview for mental status (BIMS) and resident mood interview (PHQ-9) completed on this day. BIMS score 12/09. PHQ-9 score 05/23
[2018-06-24 15:39] VITALS: BP 130/67; PULSE 71; RESP 18; TEMP 36.1; O2SAT 95
[2018-06-24] MEDS: Bisacodyl 5 MG Tablet 10 MG PO (15:54)
--- NOTE | 2018-06-24 16:17 | CHAPLAIN ---
Type of Pastoral Visit ___ Initial Visit _x__ Follow-up Visit ___ On-call Visit ___ General Patient Visit ___ Spiritual Assessment ___ Family Conference ___ Bereavement ___ Rapid Response ___ Code Blue ___ Other (describe below) Pastoral Care Referral From _x__ Patient _x__ Family ___ Nurse ___ Physician ___ Chaser Apprentice ___ Outsoles Channel Opener ___ Other (describe below) Sacrament/Intervention ___ Active listening ___ Anointing ___ Uatsdin ___ Bereavement ___ Communion ___ Zenia exploration ___ ___ Life review _x__ Prayer ___ Reconciliation ___ Sacrament of Sick _x__ Supportive presence ___ Wedding ___ Other (describe below) Pastoral Comments
--- NOTE | 2018-06-24 17:42 | NURSING ---
pt family concerned regarding increased confusion, Dr. Ellis notified
--- NOTE | 2018-06-24 17:51 | RAD_ITS ---
STUDY: X-RAY - ABDOMEN/PELVIS REASON FOR EXAM: Male, 78 years old. Mental status change TECHNIQUE: 3 views COMPARISON: None. FINDINGS: Normal visualized lung bases. Gaseous distended bowel loops are noted. Distal colonic obstruction/early sigmoid volvulus cannot be excluded. There is no demonstrated free abdominal air. There is a right ureteral stent in place. Normal soft tissue structures. Degenerative vertebral changes. RAD/Abdomen Single View (Portable) IMPRESSION: Gaseous distended bowel loops are noted. Distal colonic obstruction/early sigmoid volvulus cannot be excluded. Electronically Signed: Geronimo Luque DO at 18:47 EST Tel [phone], Service support ,
[2018-06-24] MEDS: Acetaminophen 500 MG Tablet 1000 MG PO (18:01)
--- NOTE | 2018-06-24 18:20 | RAD_ITS ---
STUDY: X-RAY CHEST REASON FOR EXAM: Male, 78 years old. Change in mental status TECHNIQUE: Single frontal view COMPARISON: June 01, 2018 FINDINGS: Stable sternotomy wires. The lungs are not fully expanded. Mild left effusion cannot be excluded. Prominent size heart. Widening of the upper mediastinum similar to previous study. Stable demi. Normal visualized pulmonary arteries. Calcified ectatic aortic arch and descending thoracic aorta. Degenerative changes of the thoracic spine. Normal visualized ribs, clavicles, and shoulders. There is no demonstrated abnormality of the visualized soft tissue structures of the upper abdomen. RAD/Chest 1 View (Portable) IMPRESSION: Cardiomegaly is stable. Calcified ectatic aortic arch. Mild left effusion cannot be excluded. Stable widening of the superior mediastinum. Electronically Signed: Geronimo Luque DO at 18:40 EST Tel [phone], Service support ,
--- NOTE | 2018-06-24 20:40 | NURSING ---
Dr Ellis aware of KUB and CXR, Informed this nurse he would enter orders remotely.
--- NOTE | 2018-06-24 22:23 | NURSING ---
Addendum entered by Marci Cedeño 06/24/18 22:45: Report was called to Belinda in ER. Original Note: Lab attempted to draw labs, pt would not allow. RN attempted to start IV. Pt grabbed RN hands and squeezed aggressively, tightly. Pt then raised fists at staff and stated, I am gonna hit you! Pt attempted to bite nurse's hand. Dr Ellis updated, unable to complete orders d/t pt inability to cooperate. N.O. to send pt to ER for eval and observation.
--- NOTE | 2018-06-24 22:42 | NURSING ---
Pt's spouse Beryl notified pt being sent to ER. Spouse requesting updates from ER after pt has beckie seen, Arsenio in ER notified.
--- NOTE | 2018-06-25 03:55 | NURSING ---
Addendum entered by Marci Cedeño 06/25/18 03:58: Pt refused IV. First SSE not retained, order was to repeat. Second SSE retained. PT consumed Nulytely 500/1000ml. Awaiting results. Original Note: Pt returned from ER at 0145. Pt was given bolus CT results reported to Dr Ellis. Continue with Nulytely, SSE, and IVFs..
[2018-06-25] MEDS: Ezetimibe 10 MG Tablet PO (04:50)
[2018-06-25] MEDS: Polyethylene Glycol 3350 17 GM PACKET PO (04:50)
[2018-06-25] MEDS: Ramipril 5 MG Capsule PO (04:51)
[2018-06-25] MEDS: Enoxaparin 40 MG/0.4 ML Syringe SC (04:51)
[2018-06-25] MEDS: Ciprofloxacin 500 MG Tablet PO ×2 (04:51)
[2018-06-25] MEDS: Pioglitazone Hydrochloride 15 MG Tablet 30 MG PO (04:51)
[2018-06-25] MEDS: Senna/Docusate Sodium 1 Tablet PO (04:51)
[2018-06-25] MEDS: Menthol/Lanolin/Calamine/Znox 113 GM Tube 1 APPLIC TOPICAL (04:51)
[2018-06-25] MEDS: Escitalopram Oxalate 10 MG Tablet PO (04:51)
[2018-06-25] MEDS: Glucerna Shake 120 ML LIQUID PO ×2 (04:52→10:55)
[2018-06-25] MEDS: Electrolyte Solution/Peg's 4000 ML 1000 ML PO (06:40)
[2018-06-25 06:41] LABS: Absolute Lymphocyte Count 1.21 X10^3/ul (0.83-4.51); Basophil# 0.01 X10^3/uL; Basophil% 0.1 % (0-1); Eosinophil# 0.31 X10^3/uL; Eosinophils% 3.3 % (0-5); Hematocrit 38.5 % (40-54); Lymphocyte # 1.21 X10^3/ul (4.0); Lymphocyte % 12.7 % (19-41); Mean Corp Hgb Conc 31.2 g/gl (32-36); Mean Corpuscular Hgb 28.6 pg (27.0-32.0); Mean Corpuscular Volume 91.9 fL (80-94); Mean Platelet Vol. 10.3 fl (6.2-12.0); Monocyte# 0.98 X10^3/uL; Monocyte% 10.3 % (0-10); Neutrophil % 73.5 % (47-70); Platelet Count 150 K/mm3 (150-450); RBC Distribution Width CV 14.6 % (11.6-14.6); RBC Distribution Width SD 47.9 fl (35.1-43.9); Red Blood Count 4.19 M/mm3 (4.6-6.2); White Blood Count 9.5 K/mm3 (4.4-11.0)
[2018-06-25 06:44] LABS: POSITIVE COUNT NO; POSITIVE DIFFERENTIAL NO; POSITIVE MORPHOLOGY NO
[2018-06-25] MEDS: Aspirin E.C. 81 MG Tablet PO (06:46)
[2018-06-25 06:59] LABS: Anion Gap 9 (5-15); BUN 24 mg/dL (7-18); BUN/Creat Ratio 17.1 RATIO (10-20); Calcium,Total 8.3 mg/dL (8.5-10.1); Chloride 106 mmol/L (98-107); EST Glomerular Filtration Rate 52 mL/min (>60); Est Glom Filt Rate - Afr Amer 63 mL/min (>60); Estimated Creatinine Clearance 45.57 ml/min; Glucose 87 mg/dL (74-106); Sodium Level 138 mmol/L (136-145)
--- NOTE | 2018-06-25 08:00 | RAD_ITS ---
STUDY: X-RAY - ABDOMEN/PELVIS REASON FOR EXAM: Male, 78 years old. Abdominal pain and distention following urological procedure. TECHNIQUE: Two AP supine views of the abdomen and pelvis. COMPARISON: Comparison is made with prior study dated June 24, 2018. FINDINGS: Mild increased markings at the left lung base suggests some linear atelectasis. Gaseous distention of the colon. This has progressed as compared to prior study.. A right sided ureteral stent is seen. This is unchanged. Contrast is seen within the urinary bladder. There are calcified phleboliths in the pelvis. There are diffuse degenerative changes of the visualized lumbar spine. RAD/Abdomen Single View IMPRESSION: Gaseous distention of the colon. This has progressed as compared to prior study. Electronically Signed: Cuba Hilton, at 9:54 EST , Service support ,
--- NOTE | 2018-06-25 08:30 | NURSING ---
Dr. Ellis reviewed ER report and CT scan. Okay for patient to discharge home today.
--- NOTE | 2018-06-25 14:32 | CASEMGMT ---
Social Work Pt expressing concern as pt is to be d/c today and has not heard from [facility]. SUSAN placed phone call to Rosalva at [facility]. Rosalva is aware that pt will be discharged home on this date with hospice services. A esl instructional assistant plans to meet pt at home. SUSAN met with pt . She states she plans to transport pt home today after dgt Christel gets off work around 4:30. Phone call to Rosalva and informed that pt will be leaving around 4:30 and would like to meet hospice at 5:00. Per pt , hospice will deliver DME. Emotional support provided to pt as she is anxious about providing care to pt. states her children will be available to assist over the weekend. Nursing notified of time of d/c. REI Niño
[2018-06-25 15:47] VITALS: BP 116/57; PULSE 68; RESP 14; TEMP 36.3; O2SAT 96
[2018-06-25 17:04] VITALS: BP 145/79; PULSE 87; RESP 14; TEMP 36.9; O2SAT 94
--- NOTE | 2018-06-28 12:16 | CASEMGMT ---
Insurance Notified insurance of resident discharge on 06/25/18 to home with spouse and hospice services. Auth#[id number] Scout ESCOBAR, RENAY
== END 2018-06-25 17:05 | disposition hospice, home (50) | DRG 948 ==
PROVIDERS: Admitting Provider Family Medicine Geriatric Medicine; Family Provider Nurse Practitioner; PCP Nurse Practitioner; Referring Provider Family Medicine Geriatric Medicine; Visit Provider Family Medicine Geriatric Medicine
DX: R53.81 Other malaise (principal); N20.1 Calculus of ureter; G93.40 Encephalopathy, unspecified; I25.10 Atherosclerotic heart disease of native coronary artery without angina pectoris; E78.5 Hyperlipidemia, unspecified; Z23 Encounter for immunization; F32.9 Major depressive disorder, single episode, unspecified; F01.50 Vascular dementia, unspecified severity, without behavioral disturbance, psychotic disturbance, mood disturbance, and anxiety; B97.4 Respiratory syncytial virus as the cause of diseases classified elsewhere; E11.22 Type 2 diabetes mellitus with diabetic chronic kidney disease; I12.9 Hypertensive chronic kidney disease with stage 1 through stage 4 chronic kidney disease, or unspecified chronic kidney disease; E03.9 Hypothyroidism, unspecified; N32.81 Overactive bladder; K21.9 Gastro-esophageal reflux disease without esophagitis; N18.3 Chronic kidney disease, stage 3 (moderate); J45.20 Mild intermittent asthma, uncomplicated; Z95.1 Presence of aortocoronary bypass graft; Z87.891 Personal history of nicotine dependence; Z87.01 Personal history of pneumonia (recurrent)
CPT/HCPCS: 36415; 71045; 74018; 74230; 80048; 82962; 85025; 87633; 90732; 92507; 92526; 92610; 92611; 97110; 97116; 97162; 97166; 97530; 97535; 97802; G0009

== ENCOUNTER → 2018-06-11 07:07 | Outpatient (CLI) | payer MEDICARE, SELFPAY ==
[2018-06-03 18:00] VITALS: BMI 25.5
--- NOTE | 2018-06-11 07:21 | CT_ITS ---
STUDY: CT ABDOMEN AND PELVIS WITHOUT CONTRAST REASON FOR EXAM: Male, 78 years old. Left flank Pain. Kidney disease. RADIATION DOSAGE (If Supplied By Facility): CTDIvol = ( 9.92 ) mGy, DLP = ( 550.28 ) mGycm TECHNIQUE: Transaxial images were obtained from the dome of the diaphragm to the symphysis pubis without oral contrast, and without intravenous contrast. Sagittal and coronal images were reconstructed. Individualized dose optimization techniques were used for this CT. COMPARISON: 05/31/2018. FINDINGS: Since prior exam, patient has had a stent positioned along the course of the right ureter. There is a 7 mm stone in the distal right ureter besides which the stent passes. The proximal portion of the stent terminates in the right renal collecting system. No hydronephrosis. No other changes in the appearance of the kidneys. Numerous cortical scars are seen. Numerous renal cysts are stable. The largest is off the mid right kidney and measures 6.6 cm greatest dimension. Calcification is again seen along the wall of the right cyst and in a smaller right renal cyst. Additional nonobstructing stones are seen in the lower right kidney. On the left, small simple cysts are seen. These are stable. Stable also is a 5 mm lower pole stone and smaller stones along the mid left kidney. No evidence for hydronephrosis or obstruction of the left kidney. No other changes since previous study. Continued pleural thickening along the posterior left lower hemithorax. Stable probable round atelectasis. Liver, gallbladder, pancreas, spleen and adrenal glands are unremarkable. Evaluation of the GI tract is limited without oral contrast. Small hiatal hernia. Cannot excluded stomach wall thickening. No dilated loops of small bowel. No evidence for small bowel obstruction. The bowel is distended with air but no evidence for obstruction or bowel wall thickening. Calcified plaque in the aorta without aneurysm. In the pelvis, normal rectum. Normal bladder contour. Enlarged prostate gland. Skeletal structures show demineralization and multilevel changes. Stable partial compression fracture of L1. CT/Abdomen/Pelvis without Cont IMPRESSION: Right-sided stent is in grossly satisfactory position. A distal right ureteral calculus remains in the ureter. No other changes. Electronically Signed: Juan Russell MD at 17:21 EST , Service support ,
== END ==
PROVIDERS: Family Provider Nurse Practitioner; PCP Nurse Practitioner; Referring Provider Urology; Visit Provider Urology
DX: R10.9 Unspecified abdominal pain (principal); N20.0 Calculus of kidney; R31.9 Hematuria, unspecified
CPT/HCPCS: 74176

== ENCOUNTER 2018-06-16 13:22 | Day surgery (SDC) | payer MEDICARE, SELFPAY ==
--- NOTE | 2018-06-15 16:10 | PCM.HP.BLA ---
History and Physical Date of Admission: 06/16/18 The patient is a 78 year old male who is in the hospital with respiratory infection difficulty with breathing who had an impacted stone in the right mid ureter underwent cystoscopy right stent placement he is now in transitional care unit recovering from his procedure. His is concerned because these have any new flank pain on the left side which is unusual stent was placed on the right may have to look into this he did have a stone in the left kidney hopefully has not moved down. Past Medical History Past Medical History (Chronic Problems): Chronic Problems (Last Reviewed 06/01/18 @ 07:27 by Nico Ordoñez MD) Debility (Chronic) Vascular dementia (Chronic) Coronary artery disease (Chronic) Hyperlipidemia (Chronic) Hypothyroidism (Chronic) Depression (Chronic) Overactive bladder (Chronic) Stroke (Chronic) Diabetes mellitus (Chronic) Chronic kidney disease (Chronic) Asthma (Chronic) History of CVA (cerebrovascular accident) (Chronic) Atherosclerosis of [place] coronary artery of [place] heart without angina pectoris (Chronic) MACIAS to LAD, aortocoronary left radial artery to obtuse marginal artery, SVG to PDA; GERD (gastroesophageal reflux disease) (Chronic) History of angioplasty (Chronic 11/06/89) Angioplasty and stenting to 70% stenosis in proximal LAD, angioplasty and stenting to proximal diagonal LAD at bifurcation, and atherectomy and stenting to 80% stenosis in mid first diagonal artery in April 2011. 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) MACIAS to LAD, aortocoronary left radial artery to obtuse marginal artery, SVG to PDA H/O percutaneous transluminal coronary angioplasty (Chronic 05/13/11) stent to diagonal 1 History of cardiac catheterization (Chronic 03/2002) 03/28,06/28 DM2 (diabetes mellitus, type 2) (Chronic) CKD (chronic kidney disease) stage 3, GFR 30-59 ml/min (Chronic) Mild intermittent asthma (Chronic) Nephrolithiasis (Chronic) Medical History: Medical History (Last Reviewed 06/09/18 @ 17:22 by Nico Ordoñez MD) Atherosclerosis of [place] coronary artery of [place] heart without angina pectoris (Chronic) I25.10 MACIAS to LAD, aortocoronary left radial artery to obtuse marginal artery, SVG to PDA; GERD (gastroesophageal reflux disease) (Chronic) K21.9 DM2 (diabetes mellitus, type 2) (Chronic) E11.9 CKD (chronic kidney disease) stage 3, GFR 30-59 ml/min (Chronic) Mild intermittent asthma (Chronic) J45.20 Nephrolithiasis (Chronic) History of Gerard's esophagus Z87.19 History of asthma Z87.09 History of irritable bowel syndrome Z87.19 Hypothyroidism E03.9 Allergies iodine Allergy (Verified 05/31/18 11:49) Hives Penicillins Allergy (Verified 05/31/18 15:47) Rash Home Medications: Ambulatory Orders Medication Instructions Recorded Aspirin E.C. [Ecotrin] 81 mg PO DAILY@0800 09/15/13 Escitalopram Oxalate [Lexapro] 10 mg PO DAILY 09/15/13 Surgical History: Surgical History (Last Reviewed 06/09/18 @ 17:22 by Nico Ordoñez MD) History of angioplasty (Chronic) Onset Date: 11/06/89 Z98.62 Angioplasty and stenting to 70% stenosis in proximal LAD, angioplasty and stenting to proximal diagonal LAD at bifurcation, and atherectomy and stenting to 80% stenosis in mid first diagonal artery in April 2011. S/P CABG x 3 (Chronic) Onset Date: 05/09/02 Z95.1 MACIAS to LAD, aortocoronary left radial artery to obtuse marginal artery, SVG to PDA H/O percutaneous transluminal coronary angioplasty (Chronic) Onset Date: 05/13/11 Z98.61 stent to diagonal 1 History of cardiac catheterization (Chronic) Onset Date: 03/2002 Z98.890 12/,03/04 History of colon resection Onset Date: 09/15/13 Z90.49 History of hemorrhoidectomy Z98.890 History of right inguinal hernia repair Z98.890, Z87.19 History of squamous cell carcinoma excision Onset Date: 10/23/11 Z98.890, Z85.9 left muslim with rhomboid transposition skin flap reconstruction History of tonsillectomy Z90.89 History of ureter stent Onset Date: 07/2008 Surgical History: angioplasty, colectomy, coronary bypass surgery - x 3., herniorrhaphy - Hiatal., tonsillectomy, - - Ureteral stent, hemorrhoidectomy. Psychiatric History: Depression Lives: Spouse/ Significant Other Smoking Status: Former smoker Tobacco Use: Non-smoker Alcohol: None Drugs: None - *Family History Maternal Family History: Family History (Last Reviewed 06/09/18 @ 17:22 by Nico Ordoñez MD) Father CVA (cerebral vascular accident) Brother Heart disease History Items: - - Denies maternal cardiac history Paternal Family History: Family History (Last Reviewed 06/09/18 @ 17:22 by Nico Ordoñez MD) Father CVA (cerebral vascular accident) Brother Heart disease History Items: - - No stroke Review of Systems Constitutional: Denies: Chills, Fever, Weight Change HEENT: Denies: Head Aches, Sinus Congestion, Sinus Drainage Cardiovascular: Denies: Chest Pain, Palpitations Respiratory: Denies: Cough, Shortness of breath at rest, Sputum production Gastrointestinal: Reports: Abdominal Pain, - - Left leg pain new. Denies: Nausea, Vomiting Genitourinary: Denies: Dysuria Musculoskeletal: Denies: Joint Pain, Joint Tenderness Skin: Denies: Rash, Wounds Neurological: Denies: Numbness, Tingling, Focal weakness Psychiatric: Denies: Anxiety, Depression, Homicidal Ideations, Suicidal Ideations Hematologic/ Lymphatic: Denies: Easy Bruising, Easy Bleeding Physical Exam - Physical Exam Vital Signs Temp 96.7 F L 06/09/18 15:41 Pulse 64 06/09/18 15:41 Resp 18 06/09/18 15:41 BP 106/60 06/09/18 15:41 Pulse Ox 96 06/09/18 15:41 Intake AND Output Intake Total 520 / 520 840 / 840 160 / 160 Balance 520 / 520 840 / 840 160 / 160 Weight: 73.624 kg 73.624 kg Intake: Oral 520 / 520 840 / 840 160 / 160 General: Alert, Oriented x3 HEENT: Atraumatic Oral: Moist Mucosa Neck: Supple Lungs: Normal air movement Abdomen: Soft, Obese Assessment/Plan All Active Problems (Last Reviewed 06/01/18 @ 07:27 by Nico Ordoñez MD) Ureteral calculus, right (Acute) RSV infection (Acute) JAVIER (acute kidney injury) (Acute) Acute metabolic encephalopathy (Acute) Encephalopathy (Acute) Community acquired pneumonia (Acute) 78-year-old male with multiple medical problems status post right stent placement for obstructing stone, but now is complaining of left flank pain he did have a known stone in left kidney I can have him do a CT scan stone protocol make sure there is no other new issues going on at the everything stable then I have my office set him up for ureteroscopy and laser lithotripsy of right stones.
[2018-06-16 13:33] VITALS: BP 125/65; PULSE 63; RESP 16; TEMP 36.4; O2SAT 100; BMI 29.5
[2018-06-16 13:57] LABS: Bedside Glucose 97 mg/dL (70-110)
[2018-06-16] MEDS: Cefazolin 2 GM in 0.9% Normal Saline 100 ML IV (15:00)
--- NOTE | 2018-06-16 16:15 | PCM.DC.URO ---
Discharge Diet: Light diet - advance as tolerated Discharge Activity: Return to Normal Activity Call your doctor if you observe: Fever of 101 or Higher Suture Line Care: Avoid Pulling/Pushing, Avoid Pinching/Bending Instructions: Treating Kidney Stones: Ureteroscopic Stone Removal Allergies/Adverse Reactions: Allergies iodine Allergy (Verified 05/31/18 11:49) Hives Penicillins Allergy (Verified 05/31/18 15:47) Rash Medications to take at Discharge Aspirin E.C. [Ecotrin] 81 mg PO DAILY@0800 09/15/13 Escitalopram Oxalate [Lexapro] 10 mg PO DAILY 09/15/13 Pioglitazone [Actos] 30 mg PO DAILY 09/15/13 Donepezil HCl [Aricept] 10 mg PO QHS 02/27/16 Ezetimibe [Zetia] 10 mg PO DAILY 04/30/18 Ramipril 5 mg PO DAILY 05/31/18 Glucerna Shake 120 ml PO 4X/DAY 06/03/18 Acetaminophen [Tylenol] 1,000 mg PO Q6H PRN PRN tablet 06/15/18 Guaifenesin Dm [Robitussin Dm] 5 ml PO Q6H PRN PRN udc 06/15/18 Menthol/Lanolin/Calamine/Znox [Calmoseptine Ointment] 1 applic TOPICAL 0600,2200 tube 06/15/18 Mineral Oil/Petrolatum,White [Eucerin] 1 applic TOPICAL QHS jar 06/15/18 Acetaminophen [Tylenol Extra Strength] 500 mg PO Q4H PRN PRN 5 Days tablet 06/16/18 Acetaminophen [Tylenol Extra Strength] 500 mg PO Q4H PRN PRN 7 Days #20 tablet 06/16/18 Ciprofloxacin [Cipro] 500 mg PO BID #14 tablet 06/16/18 Ibuprofen 600 mg PO Q6H PRN PRN #20 tablet 06/16/18 The following prescriptions were given: Acetaminophen [Tylenol Extra Strength] 500 mg PO Q4H PRN PRN 5 Days tablet PRN Reason: Pain Acetaminophen [Tylenol Extra Strength] 500 mg PO Q4H PRN PRN 7 Days #20 tablet PRN Reason: Pain Ibuprofen 600 mg PO Q6H PRN PRN #20 tablet PRN Reason: Pain Ciprofloxacin [Cipro] 500 mg PO BID #14 tablet Primary Care Physician: Ciesa,Daiana, [employer]INTENA[employer]CE-C [Primary Care Provider] - Test Results: Test results from this visit will be discussed in further detail at your follow-up appointment, if applicable. Please Follow Up With: Nico Ordoñez MD When: in 2 weeks, please call to make an appointment.
--- NOTE | 2018-06-16 16:17 | PCM.OPRPT ---
Report of Operation Date of Procedure: 06/16/18 Pre-Operative Diagnosis: Right ureteral calculi right renal calculi Post-Operative Diagnosis: Same Surgery/Procedure Performed:: Cystoscopy, right retrograde pyelogram, right ureteroscopy laser laser lithotripsy of stones in the ureter, laser lithotripsy of multiple stones in the kidney and right stent placement Description of Surgical Findings:: 78-year-old male with multiple stones in the ureter and the kidney in the right side he underwent stent placement and now comes back for ureteroscopy the laser all the stones in the ureter and also multiple stones in the right kidney. 78-year-old male taken back to the operating room with smooth induction of general anesthesia he was placed supine on the table penis and testicles are prepped and draped in usual sterile sterile fashion went into the bladder with a 21 [place] rigid cystourethroscope grabbed the existing stent pulled out to the meatus advanced a wire through the stent left the wire in place I then went back in the scope resect into the bladder with the scope a second time place a safety wire left the safety wire and placed tape and secured to the drapes over the working wire went in with a flexible ureteroscope immediately encountered 2 large stones in the distal ureter these were lasered with laser lithotripsy and the little tiny fragments and then worked my way up the ureter until I encountered a stone in the mid ureter this is laser little little tiny fragments of laser lithotripsy and encountered 2 other large stones in the upper pole of the right kidney these were laser little tiny pieces I worked my way down the ureter we then used a basket extraction and extracted some fragments of the from the ureter to the bladder performed a retrograde pyelogram looked back in one more time went all the way up to the kidney and then worked my way all the way down the ureter no other major fragments are seen along the course of the ureter then over the safety wire I backloaded the stent stent up into the kidney left the string of the stent for easy extraction will see him back in about 2 weeks to get stent out patient anesthetic is currently being reversed. Type of Anesthesia:: General Drains: stent right. - Admit VTE Documentation VTE Present on Admission: No VTE Mechan Device Prophylaxis: SCD's
[2018-06-16 16:22] VITALS: BP 107/55; BP 125/65; PULSE 76; RESP 16; TEMP 36.5; O2SAT 94
[2018-06-16 16:30] VITALS: BP 114/66; BP 125/65; PULSE 79; RESP 16; O2SAT 94
[2018-06-16 16:37] LABS: Bedside Glucose 98 mg/dL (70-110)
[2018-06-16 16:45] VITALS: BP 125/65; BP 131/69; PULSE 73; RESP 16; O2SAT 97
[2018-06-16 17:00] VITALS: BP 125/64; BP 125/65; PULSE 75; RESP 16; O2SAT 96
[2018-06-16 17:17] VITALS: BP 122/63; BP 125/65; PULSE 75; RESP 16; TEMP 36.5; O2SAT 97
== END 2018-06-16 17:30 | disposition skilled nursing facility (03) ==
LOC: SDC 13:23 → AC 13:23
PROVIDERS: Family Provider Nurse Practitioner; PCP Nurse Practitioner; Referring Provider Urology; Visit Provider Urology
PROC: 0TJ98ZZ Inspection of Ureter, Via Natural or Artificial Opening Endoscopic (ICD-10-PCS; CPT 52352; principal; 2018-06-16 14:25)
DX: R31.0 Gross hematuria (principal); N20.2 Calculus of kidney with calculus of ureter; N40.1 Benign prostatic hyperplasia with lower urinary tract symptoms; R39.15 Urgency of urination; N32.81 Overactive bladder; R97.20 Elevated prostate specific antigen [PSA]; E11.22 Type 2 diabetes mellitus with diabetic chronic kidney disease; N18.3 Chronic kidney disease, stage 3 (moderate); I25.10 Atherosclerotic heart disease of native coronary artery without angina pectoris; E03.9 Hypothyroidism, unspecified; E78.5 Hyperlipidemia, unspecified; J45.20 Mild intermittent asthma, uncomplicated; F01.50 Vascular dementia, unspecified severity, without behavioral disturbance, psychotic disturbance, mood disturbance, and anxiety; K21.9 Gastro-esophageal reflux disease without esophagitis; F32.9 Major depressive disorder, single episode, unspecified; Z79.02 Long term (current) use of antithrombotics/antiplatelets; Z79.82 Long term (current) use of aspirin; Z79.899 Other long term (current) drug therapy; Z87.442 Personal history of urinary calculi; Z86.73 Personal history of transient ischemic attack (TIA), and cerebral infarction without residual deficits; Z87.19 Personal history of other diseases of the digestive system; Z95.5 Presence of coronary angioplasty implant and graft; Z95.1 Presence of aortocoronary bypass graft
CPT/HCPCS: 52356; 76000; 82962; J7120; C2617; J2405

== ENCOUNTER 2018-06-24 22:20 | Emergency (ER) | payer MEDICARE, SELFPAY ==
[2018-06-24 22:21] VITALS: BP 118/70; PULSE 67; RESP 18; TEMP 36.5; O2SAT 95; BMI 22.8
--- NOTE | 2018-06-24 22:41 | CT_ITS ---
STUDY: CT ABDOMEN AND PELVIS WITH CONTRAST REASON FOR EXAM: Male, 78 years old. Constipation RADIATION DOSAGE (If Supplied By Facility): CTDIvol = ( 12.71 ) mGy, DLP = ( 1307.25 ) mGycm TECHNIQUE: Transaxial images were obtained from the dome of the diaphragm to the symphysis pubis without oral contrast. Isovue 300 100ML IV was administered. Sagittal and coronal images were reconstructed. Individualized dose optimization techniques were used for this CT. COMPARISON: None. FINDINGS: Mild pleural parenchymal changes in the left lung base. The liver is normal. No dilated intrahepatic biliary radicles. The gallbladder is normal with no calcifications within it. There is no pericholecystic fluid collection or streakiness The spleen is normal. The pancreas is normal. Both adrenals are normal. Multiple renal cysts bilaterally. The largest in the right kidney measuring 5.8 cm. A right-sided double pigtail stent is in place A small hiatal hernia. There is no bowel distention, acute appendicitis or diverticulitis. No constricting lesions are seen in large bowel. A large amount of fecal burden within the rectum and the left hemicolon The abdominal wall is intact with no hernias. There is no ascites or any free intraperitoneal air. No indication of epiploic appendagitis The vascular structures in the retroperitoneum are normal. There is no retrocrural, retroperitoneal or mesenteric adenopathy. A mild and old fracture involving the superior endplate of L1. Intervertebral osteochondrosis at L5-S1. The urinary bladder is normal.--. There is no inguinal or pelvic adenopathy. There is no inguinal hernia. . CT/Abdomen/Pelvis W IV Cont ONLY IMPRESSION: No acute findings in the abdomen or pelvis. Specifically there is no acute appendicitis or diverticulitis. A large fecal burden within the rectum and left hemicolon. Bilateral multiple renal cysts. A right-sided double pigtail stent in place. Electronically Signed: Jagdeep Gipson MD at 0:37 EST Tel , Service support ,
--- NOTE | 2018-06-24 22:43 | ED.VISSUMM ---
- ER Visit Summary Date of Service: 06/24/18 Chief Complaint: Sent from the transitional care unit for possible bowel obstruction History of Present Illness: The patient is a 78 M history of dementia, stroke, anemia, NIDDM, renal insufficiency. Prior history of triple bypass and partial colon resection. Recently admitted to the hospital for ureteral stent and after hospitalization was transferred to the transitional care unit. Reportedly there was concern today for constipation and a plain film was obtained which was concerning for could not rule out a volvulus so the patient was sent to the ER. He denies any abdominal pain or vomiting. Physical Examination: Elderly demented male no acute distress. Vital signs are stable. He is afebrile. His pulse ox 9% on room air no hypoxia. HEENT exam unremarkable. Moist weeks membranes. Neck nontender. Lungs clear to auscultation. Heart regular rhythm no murmur rate about 70. Abdomen soft. Nondistended. Increased bowel gas. No peritoneal signs. Decreased bowel sounds. No hernias or masses. Clinically does not appear to be obstructed. Well-healed prior sternotomy incision is old and exploratory laparotomy midline incision in the right abdomen that is old also. I do not feel any mass. He is moving all 4 extremities. Calves are nontender without edema. Neurologically is awake and alert. He follows commands. He answers questions but is demented and his answers are not accurate. Test Results: CBC shows white count of 9. Hemoglobin 12 which is his baseline anemia. Chemistries show normal gap of [address] abdomen pelvis with IV contrast shows constipation. No obstruction or volvulus. This is from my interpretation we are waiting for the official radiologist read. Emergency Department Course and Treatment: Patient is resting comfortably and will not be given any medication at this time. Repeat exam patient is doing well at 00:05 AM. Abdomen is soft and nontender. He is resting comfortably. Treatment Plan: Treated for constipation. Magnesium citrate. Disposition: Discharge back to the transitional care unit Impression: Acute constipation This note was generated with [employer] dictation software. It may contain incorrect words, spelling, and punctuation that were not noted in review of the chart prior to signing ED Disposition - Plan for ED Patient: Referrals: Daiana Andrew, TALIB-C [Primary Care Provider] -
--- NOTE | 2018-06-24 23:08 | ED.RN ---
spoke with daughter at this time and updated plan of care
[2018-06-24 23:23] LABS: Absolute Lymphocyte Count 1.21 X10^3/ul (0.83-4.51); Absolute Neutrophil Count 7.2 X10^3/uL (2.0-7.7); Basophil# 0.02 X10^3/uL; Basophil% 0.2 % (0-1); Eosinophil# 0.26 X10^3/uL; Eosinophils% 2.7 % (0-5); Hematocrit 39.3 % (40-54); Hemoglobin 12.3 g/dl (13.0-16.5); Lymphocyte # 1.21 X10^3/ul (4.0); Lymphocyte % 12.6 % (19-41); Mean Corp Hgb Conc 31.3 g/gl (32-36); Mean Corpuscular Hgb 28.9 pg (27.0-32.0); Mean Corpuscular Volume 92.3 fL (80-94); Mean Platelet Vol. 10.4 fl (6.2-12.0); Monocyte# 0.91 X10^3/uL; Monocyte% 9.5 % (0-10); Neutrophil # 7.19 X10^3/uL (2.7-7.7); Neutrophil % 74.8 % (47-70); POSITIVE COUNT NO; POSITIVE DIFFERENTIAL NO; POSITIVE MORPHOLOGY NO; Platelet Count 162 K/mm3 (150-450); RBC Distribution Width CV 14.7 % (11.6-14.6); RBC Distribution Width SD 48.5 fl (35.1-43.9); Red Blood Count 4.26 M/mm3 (4.6-6.2); White Blood Count 9.6 K/mm3 (4.4-11.0)
[2018-06-24 23:35] LABS: Anion Gap 6 (5-15); BUN 28 mg/dL (7-18); BUN/Creat Ratio 18.4 RATIO (10-20); Calcium,Total 8.4 mg/dL (8.5-10.1); Chloride 107 mmol/L (98-107); Creatinine, Serum 1.52 mg/dL (0.70-1.30); EST Glomerular Filtration Rate 47 mL/min (>60); Est Glom Filt Rate - Afr Amer 57 mL/min (>60); Glucose 96 mg/dL (74-106); Potassium 4.2 mmol/L (3.5-5.1); Sodium Level 139 mmol/L (136-145)
[2018-06-25] MEDS: 0.9% Normal Saline 1,000 ML 999 ML IV (00:16)
--- NOTE | 2018-06-25 00:19 | ED.DEP ---
ED Disposition - Plan for ED Patient: Disposition: Home or Assisted Living Instructions: ED Constipation Referrals: Daiana Andrew NP-C [Primary Care Provider] - As Needed Ravinder Ellis Chi, MD [COURTESY STAFF PHYSICIAN] - 1 Day Additional Instructions: Patient's physical exam of his abdomen is unremarkable. His CAT scan reveals constipation no signs of a bowel obstruction nor any signs of volvulus. Plenty of fluids, fiber and magnesium citrate as needed for constipation. Dr. Ellis should reevaluate the patient on Thursday
[2018-06-25 01:44] VITALS: BP 141/79; PULSE 69; RESP 16; O2SAT 94
== END 2018-06-25 01:46 | disposition skilled nursing facility (03) ==
PROVIDERS: Emergency Provider Emergency Medicine; Family Provider Nurse Practitioner; PCP Nurse Practitioner
DX: K59.00 Constipation, unspecified (principal); F03.90 Unspecified dementia, unspecified severity, without behavioral disturbance, psychotic disturbance, mood disturbance, and anxiety; I25.10 Atherosclerotic heart disease of native coronary artery without angina pectoris; E11.9 Type 2 diabetes mellitus without complications; D64.9 Anemia, unspecified; N28.9 Disorder of kidney and ureter, unspecified; Z79.01 Long term (current) use of anticoagulants; Z79.82 Long term (current) use of aspirin; Z79.899 Other long term (current) drug therapy; Z86.73 Personal history of transient ischemic attack (TIA), and cerebral infarction without residual deficits; Z87.442 Personal history of urinary calculi; Z95.1 Presence of aortocoronary bypass graft
CPT/HCPCS: 74177; 80048; 85025; 96360; 99285; J7030; Q9967; A4216